=== PATIENT | female | born 1960 | race African-American/Black ===

== ENCOUNTER 2019-06-29 05:36 | Inpatient (IN) | payer MEDICARE, OTHER ==
[~2019-06-29] VITALS: Ht 160 cm; Wt 75.3 kg
[2019-06-29] VITALS (56 sets, daily range): BP systolic 67–199; BP diastolic 38–116
[2019-06-29] MEDS ORDERED: EPINEPHrine 1mg/1ml Amp ONE (05:39)
[2019-06-29] MEDS ORDERED: Solu-MEDROL 125mg Inj ONE (05:42)
[2019-06-29] MEDS ORDERED: DiphenhydrAMINE 50mg/ml Inj ONE (05:43)
[2019-06-29] MEDS ORDERED: DiphenhydrAMINE 50mg/ml Inj IVP ONE (05:45)
[2019-06-29] MEDS ORDERED: Racemic EPINEPHrine 2.25% 0.5ml HHN ONE (05:45)
[2019-06-29] MEDS ORDERED: Solu-MEDROL 125mg Inj IVP ONE (05:45)
[2019-06-29] MEDS ORDERED: EPINEPHrine 1mg/1ml Amp IM ONE (05:45)
--- NOTE | 2019-06-29 05:56 | Emergency Room Report ---
History of Present Illness General Chief Complaint: To Be Triaged Source: Patient Present Illness [facility] This is a 59-year-old female with a history of hypertension. She presents with chief complaint of severe allergic reaction. She woke up 2 hours prior to arrival with her tongue being swollen. Her neck was also swollen. She has a hard time breathing. This point to the area of pain. No fever chills. No nausea no vomiting. Couple shots of alcohol and took some Benadryl before going to sleep. She woke up with this condition. She is taking blood pressure medication but does not know the name. She did say she got it from [facility]. When I called there the only medication that she has was hydrochlorothiazide. Patient also said that she took Flexeril. No obvious BETTYE inhibitor. Allergies: Coded Allergies: No Known Allergies (Unverified , 06/29/19) Patient History Past Medical History: see triage record, old chart reviewed, HTN Past Surgical History: other Pertinent Family History: none Social History: Reports: alcohol use; Denies: smoking Now: No Immunizations: other Reviewed Nursing Documentation: PMH: Agreed; PSxH: Agreed Review of Systems Eye: Denies: eye pain, blurred vision ENT: Denies: ear pain, nose congestion, throat swelling Respiratory: Reports: shortness of breath; Denies: cough Cardiovascular: Denies: chest pain, palpitations Gastrointestinal: Denies: abdominal pain, diarrhea, nausea, vomiting Musculoskeletal: Denies: back pain, joint pain Skin: Denies: rash Neurological: Denies: headache, numbness Endocrine: Denies: increased thirst, increased urine Hematologic/Lymphatic: Denies: easy bruising All Other Systems: negative except mentioned in HPI Physical Exam Vitals with high blood pressure Sp02 EP Interpretation: reviewed, normal General Appearance: well appearing, alert, severe distress Head: normocephalic, atraumatic Eyes: bilateral eye PERRL, bilateral eye EOMI ENT: hearing grossly normal, other - Her tongue is very edematous. Can barely see the soft palate. Also tense soft tissue of the neck. Neck: full range of motion, supple, no meningismus Respiratory: chest non-tender, lungs clear, normal breath sounds Cardiovascular #1: regular rate, rhythm, no murmur Gastrointestinal: normal bowel sounds, non tender, no mass, no organomegaly, no bruit, non-distended Musculoskeletal: back normal, gait/station normal, normal range of motion Psychiatric: mood/affect normal Procedures Critical Care Time Critical Care Time Critical care is mandated in this patient who presented with severe angioedema. Patient require my urgent intervention to attenuate the risks of respiratory failure which may lead to cardiovascular collapse and . Critical care time is 35 minutes excluding any reportable procedure. Critical care time included evaluation, multiple reevaluation, looking at old charts, interpreting laboratory and diagnostic data, discussing case with patient and family and consultants, and charting. Medical Decision Making Diagnostic Impression: Primary Impression: Angioedema Qualified Codes: T78.3XXA - Angioneurotic edema, initial encounter Additional Impressions: Hypertension Qualified Codes: I10 - Essential (primary) hypertension Cocaine abuse ER Course Patient presents with severe angioedema. This does not appear to be from BETTYE inhibitor. Patient is on hydrochlorothiazide. She may be on another blood pressure medication. She said that she uses [facility]. When [facility] called [facility] only have [facility]ide on file. Patient was given epinephrine IM. She also received steroid, Pepcid, and Benadryl. I also gave her racemic epi. At this moment in time, she is protecting her airway. I called anesthesia on-call who will come in to intubate the patient in the OR. If unsuccessful, she will need a surgical airway. I discussed the case with Dr. Olivo, surgeon. He will also come in as back-up in the OR. Patient now admits to using cocaine last night. Will be admitted to ICU. Contacted Dr. Ray for admission. EKG Diagnostic Results Rate: tachycardiac Rhythm: NSR ST Segments: no acute changes Rhythm Strip Diag. Results EP Interpretation: yes Rate: 110 Rhythm: NSR, no PVC's, no ectopy Chest X-Ray Diagnostic Results Chest X-Ray Diagnostic Results : Chest X-Ray Ordered: Yes # of Views/Limited/Complete: 1 View Indication: Shortness of Breath EP Interpretation: Yes Interpretation: no consolidation, no effusion, no pneumothorax, no acute cardiopulmonary disease Impression: No acute disease Electronically Signed by: Lars Castaneda MD Status: improved Disposition: ADMITTED INPATIENT Condition: Critical Lars Castaneda MD Jun 29, 2019 05:56
[2019-06-29 06:21] LABS: ANION GAP 9 mmol/L (5-15); BLOOD UREA NITROGEN 19 mg/dL (7-18); CALCIUM 9.4 MG/DL (8.5-10.1); CARBON DIOXIDE 26 MMOL/L (21-32); CHLORIDE 106 MMOL/L (98-107); CREATININE 1.6 MG/DL (0.55-1.30); INR 0.9 (0.9-1.1); POTASSIUM 3.3 MMOL/L (3.5-5.1); SODIUM 141 MMOL/L (136-145)
[2019-06-29 06:23] LABS: BASOPHILS % (AUTO) 1.5 % (0.0-2.0); EOSINOPHILS % (AUTO) 2.4 % (0.0-3.0); HEMOGLOBIN 14.6 G/DL (12.0-16.0); LYMPHOCYTES % (AUTO) 30.2 % (20.0-45.0); MEAN CORPUSCULAR VOLUME 99 FL (80-99); MONOCYTES % (AUTO) 8.4 % (1.0-10.0); NEUTROPHILS % (AUTO) 57.5 % (45.0-75.0); PLATELET COUNT 258 K/UL (150-450); RED BLOOD COUNT 4.65 M/UL (4.20-5.40); RED CELL DISTRIBUTION WIDTH 14.9 % (11.6-14.8); WHITE BLOOD COUNT 12.6 K/UL (4.8-10.8)
[2019-06-29 07:17] LABS: APPEARANCE,URINE CLEAR; BILIRUBIN, URINE NEGATIVE (NEGATIVE); COLOR,URINE PALE YELLOW; GLUCOSE, URINE (UA) NEGATIVE (NEGATIVE); KETONES,URINE NEGATIVE (NEGATIVE); LEUKOCYTE ESTERASE ,URINE NEGATIVE (NEGATIVE); NITRITE,URINE NEGATIVE (NEGATIVE); PH,URINE 6.5 (4.5-8.0); PROTEIN,URINE 2+ (NEGATIVE); UROBILINOGEN,URINE NORMAL MG/DL (0.0-1.0)
[2019-06-29] MEDS ORDERED: Succinylcholine 20mg/ml 10ml vial ONE (07:21)
[2019-06-29] MEDS ORDERED: Lidocaine 1% 10mg/ml/Epi 0.005mg/ml 30ml vial INJ ONE (07:32)
[2019-06-29] MEDS ORDERED: Lidocaine 1% Plain 30 ml INJ ONE (07:32)
[2019-06-29] MEDS ORDERED: Ketamine 500mg Inj ONE (07:36)
[2019-06-29] MEDS ORDERED: Midazolam 2mg/2ml Inj ONE ×2 (07:56→09:01)
--- NOTE | 2019-06-29 08:00 | Pre-Procedure Note/Attestation ---
Pre-Procedure Note/Attestation Complete Prior to Procedure Planned Procedure: not applicable Procedure Narrative: tracheostomy Indications for Procedure Pre-Operative Diagnosis: angio-edema Attestation I attest that I discussed the nature of the procedure; its benefits; risks and complications; and alternatives (and the risks and benefits of such alternatives ), prior to the procedure, with the patient (or the patient's legal treasury representative). I attest that, if there was a reasonable possibility of needing a blood transfusion, the patient (or the patient's legal treasury representative) was given the [facility] standardized written summary, pursuant to the [place] Blood Safety Act ([place] Health and Safety Code # 1645, as amended). I attest that I re-evaluated the patient just prior to the surgery and that there has been no change in the patient's H&P, except as documented below: Luis Olivo MD Jun 29, 2019 08:00
[2019-06-29] MEDS ORDERED: Zemuron 50mg/5ml Inj IV ONE (09:00)
--- NOTE | 2019-06-29 09:09 | Emergency Room Report ---
History of Present Illness General Chief Complaint: Dyspnea/Respdistress Source: Patient Present Illness Allergies: Coded Allergies: No Known Allergies (Unverified , 06/29/19) Patient History Last Menstrual Period: NA Now: No Nursing Documentation-[facility] Hx Hypertension: Yes Physical Exam Vital Signs Date Time Temp Pulse Resp B/P (MAP) Pulse Ox O2 Delivery O2 Flow Rate FiO2 06/29/19 05:57 101 17 100 Simple Mask 6.0 40 06/29/19 06:02 199/116 (143) 06/29/19 07:20 98.7 Procedures Additional Procedure Procedure Narrative Please note that I was called to the OR for possible assistance Upon arriving to the OR patient has LMA airway in place anesthesia is at Bedside along with surgery data entry assistant reports that there was some difficulty with bleeding at the anterior surgical site I did assist with applying pressure with improved control Tracheal rings were visible at this time And Dr. barajas proceeded with the procedure After the tracheostomy was placed and sutures were being placed I did leave the OR to return to the emergency room Patient's saturation had improved to 95% And upon leaving the OR Dr. Kirkland from ENT was also presenting to the room. Medical Decision Making Diagnostic Impression: Primary Impression: Angioedema Additional Impressions: Cocaine abuse Hypertension Last Vital Signs Date Time Temp Pulse Resp B/P (MAP) Pulse Ox O2 Delivery O2 Flow Rate FiO2 06/29/19 07:58 98.7 122 26 149/107 100 Simple Mask 6.0 40 Disposition: ADMITTED INPATIENT Condition: Critical Referrals: NOT CHOSEN IPA/,REFERRING (PCP) Lou Hameed DO Jun 29, 2019 09:09
--- NOTE | 2019-06-29 09:16 | Brief Operative Note ---
Immediate Post Operative Note Operative Note Pre-op Diagnosis: angio-edema Procedure: emergemcy tracheostomy Post-op Diagnosis: same as pre-op Surgeon: Klaus Outsewer: Dr. Baez Anesthesiologist: Ashley Doty CRNA Anesthesia: general Specimen: none Complications: yes Condition: stable Fluids: Per anesthesia Estimated Blood Loss: volume - 2000 ml Drains: other - trach Implant(s) used?: No Luis Olivo MD Jun 29, 2019 09:16
[2019-06-29] MEDS ORDERED: ceFAZolin 2gm/50ml Premix 50 ML IVPB ONE (09:45)
[2019-06-29] MEDS ORDERED: Surgicel 4in x 8in TOPIC ONE (09:50)
[2019-06-29 10:25] LABS: HEMATOCRIT 29.5 % (37.0-47.0); HEMOGLOBIN 9.5 G/DL (12.0-16.0); MEAN CORPUSCULAR VOLUME 99 FL (80-99); PLATELET COUNT 197 K/UL (150-450); RED BLOOD COUNT 2.98 M/UL (4.20-5.40); RED CELL DISTRIBUTION WIDTH 15.1 % (11.6-14.8); WHITE BLOOD COUNT 16.5 K/UL (4.8-10.8)
[2019-06-29] MEDS ORDERED: D5NS 1,000 ML IV SCH (10:45)
[2019-06-29 10:52] LABS: ANION GAP 13 mmol/L (5-15); BLOOD UREA NITROGEN 24 mg/dL (7-18); CALCIUM 7.5 MG/DL (8.5-10.1); CARBON DIOXIDE 18 MMOL/L (21-32); CHLORIDE 112 MMOL/L (98-107); CREATININE 1.8 MG/DL (0.55-1.30); POTASSIUM 3.7 MMOL/L (3.5-5.1); SODIUM 143 MMOL/L (136-145)
--- NOTE | 2019-06-29 10:55 | Anethesia Preoperative Eval ---
Anesthesia Pre-op PMH/ROS General Date of Evaluation: Jun 29, 2019 Time of Evaluation: 07:45 Anesthesiologist: wong ASA Score: ASA 3 Mallampati Score Class I : Soft palate, uvula, fauces, pillars visible Class II: Soft palate, uvula, fauces visible Class III: Soft palate, base of uvula visible Class IV: Only hard plate visible Mallampati Classification: Class IV Surgeon: Pallavi Diagnosis: angio edema Surgical Procedure: tracheostomy Anesthesia History: none Family History: no anesthesia problems Allergies: Coded Allergies: No Known Allergies (Unverified , 06/29/19) Medications: see eMAR Patient NPO?: Yes NPO Date: Jun 29, 2019 NPO Time: 00:01 Past Medical History Cardiovascular: Reports: HTN Pulmonary: Denies: asthma, COPD, SHEREEN, other Gastrointestinal/Genitourinary: Denies: GERD, CRI, ESRD, other Neurologic/Psychiatric: Denies: dementia, CVA, depression/anxiety, TIA, other Endocrine: Denies: DM, hypothyroidism, steroids, other Other: other - substance abuse - cocaine use at 0200 PSxH Narrative: denies Anesthesia Pre-op Phys. Exam Physician Exam Last Vital Signs Date Time Temp Pulse Resp B/P (MAP) Pulse Ox O2 Delivery O2 Flow Rate FiO2 06/29/19 09:59 127 25 50 06/29/19 07:58 98.7 149/107 100 Simple Mask 6.0 Constitutional: NAD Neurologic: CN 2-12 intact, other - anxious Cardiovascular: other - ST 120s Respiratory: CTA Gastrointestinal: S/NT/ND Airway Exam Mallampati Classification 4 Mallampati Score: Class IV MO: limited Neck: thick and edematous Teeth: other - unable to assess Dentures: no upper, no lower Anesthesia Pre-op A/P Labs Hematology Test 06/29/19 05:40 06/29/19 10:20 White Blood Count 12.6 K/UL (4.8-10.8) H 16.5 K/UL (4.8-10.8) H Red Blood Count 4.65 M/UL (4.20-5.40) 2.98 M/UL (4.20-5.40) L Hemoglobin 14.6 G/DL (12.0-16.0) 9.5 G/DL (12.0-16.0) #L Hematocrit 46.0 % (37.0-47.0) 29.5 % (37.0-47.0) #L Mean Corpuscular Volume 99 FL (80-99) 99 FL (80-99) Mean Corpuscular Hemoglobin 31.4 PG (27.0-31.0) H 31.9 PG (27.0-31.0) H Mean Corpuscular Hemoglobin Concent 31.7 G/DL (32.0-36.0) L 32.2 G/DL (32.0-36.0) Red Cell Distribution Width 14.9 % (11.6-14.8) H 15.1 % (11.6-14.8) H Platelet Count 258 K/UL (150-450) 197 K/UL (150-450) Mean Platelet Volume 7.7 FL (6.5-10.1) 7.9 FL (6.5-10.1) Neutrophils (%) (Auto) 57.5 % (45.0-75.0) % (45.0-75.0) Lymphocytes (%) (Auto) 30.2 % (20.0-45.0) % (20.0-45.0) Monocytes (%) (Auto) 8.4 % (1.0-10.0) % (1.0-10.0) Eosinophils (%) (Auto) 2.4 % (0.0-3.0) % (0.0-3.0) Basophils (%) (Auto) 1.5 % (0.0-2.0) % (0.0-2.0) Neutrophils % (Manual) Pending Lymphocytes % (Manual) Pending Platelet Estimate Pending Platelet Morphology Pending Coagulation Test 06/29/19 05:40 Prothrombin Time 9.3 SEC (9.30-11.50) Prothromb Time International Ratio 0.9 (0.9-1.1) Activated Partial Thromboplast Time 26 SEC (23-33) Chemistry Test 06/29/19 05:40 06/29/19 10:20 Sodium Level 141 MMOL/L (136-145) Pending Potassium Level 3.3 MMOL/L (3.5-5.1) L Pending Chloride Level 106 MMOL/L (98-107) Pending Carbon Dioxide Level 26 MMOL/L (21-32) Pending Anion Gap 9 mmol/L (5-15) Blood Urea Nitrogen 19 mg/dL (7-18) H Pending Creatinine 1.6 MG/DL (0.55-1.30) H Pending Estimat Glomerular Filtration Rate 39.9 mL/min (>60) Pending Glucose Level 106 MG/DL (74-106) Pending Calcium Level 9.4 MG/DL (8.5-10.1) Pending Troponin I 0.010 ng/mL (0.000-0.056) Studies Pre-op Studies: EKG - st Risk Assessment & Plan Assessment: Spoke to Dr. Castaneda, an Emergency physician at 0600am. Dr. Castaneda explained to me that he had a difficult intubation with a pt who appears to have angioedema and requests anesthesia assistance in the ER. see ER notes for details. Per Dr Castaneda, pt is stable with 6 L of FM at this time after a couple doses of steriods.. Informed Dr. Castaneda that the case warrents a surgical airway and should be performed in the operating room with surgeon/ENT at bedside. He agreed and protocol activated. At 0650 - I visted the ER and explained to pt regarding the need for surgical airway in which patient acknowledged and consented. 0730 - I spoke with Dr. Ward, on the phone and in person, to full extent of the plan. The plan is 1. I will attempt to DL with glidescope x1 attempt since airway had been already compromised from ER intubation 2. Dr. Ward is to ID neck anatomy and prepped pt prior to DL 3. OR team is ready to assist Dr. Ward. Team Huddle was performed and acknowledged prior to induction. Dr. Rodriguez was also made aware of the situation and circumstances surrounding the case. at 0745, Received pt from the ER. Pt is spitting out blood and highly anxious at this point. However, VSS at this time. Please anesthesia note. Plan: Awake Trach vs Emergency intubation Pre-Antibiotics Drug: none Ashley Lam CRNA Jun 29, 2019 10:55
--- NOTE | 2019-06-29 10:56 | Immediate Post-Op Evaluation ---
Immediate Post-Op Evalulation Immediate Post-Op Evalulation Procedure: tracheostomy Date of Evaluation: Jun 29, 2019 Time of Evaluation: 09:35 IV Fluids: 1500 Blood Products: 0 Estimated Blood Loss: 2100 Urinary Output: 100 Blood Pressure Systolic: 80 Blood Pressure Diastolic: 50 Pulse Rate: 135 Respiratory Rate: 16 O2 Sat by Pulse Oximetry: 99 Temperature (Fahrenheit): 96.7 Nausea: No Vomiting: No Patient Status: patent, ventilated - See vent settings Hydration Status: other - ordered H&Hl 2 units of prbc; abg; and cxr Drug: none Ashley Lam CRNA Jun 29, 2019 10:56
[2019-06-29] MEDS ORDERED: Metoclopramide 10mg/2ml Inj IVP PRN (11:01)
[2019-06-29] MEDS ORDERED: Acetaminophen 650 MG SUPP RECTAL PRN (11:01)
[2019-06-29] MEDS ORDERED: HYDROmorphone 1mg/ml Carpuject IVP PRN (11:02)
[2019-06-29] MEDS ORDERED: Hydromorphone 0.5mg/0.5ml inj IVP PRN (11:02)
[2019-06-29] MEDS ORDERED: Pantoprazole Inj IVP SCH (12:00)
[2019-06-29] MEDS ORDERED: D5 1/2NS w/KCl 20mEq 1,000 ML IV SCH (12:30)
--- NOTE | 2019-06-29 13:02 | Emergency Room Report ---
History of Present Illness General Chief Complaint: Dyspnea/Respdistress Source: Patient Present Illness Allergies: Coded Allergies: No Known Allergies (Unverified , 06/29/19) Patient History Last Menstrual Period: NA Now: No Nursing Documentation-PM Hx Hypertension: Yes Physical Exam Vital Signs Date Time Temp Pulse Resp B/P (MAP) Pulse Ox O2 Delivery O2 Flow Rate FiO2 06/29/19 05:57 101 17 100 Simple Mask 6.0 40 06/29/19 06:02 199/116 (143) 06/29/19 07:20 98.7 Procedures Central Line Central Line : Consent: Emergent Central Line Lumen: triple Maximal Sterile Barrier Tech: yes cap, yes mask, yes sterile gown, yes sterile gloves, yes large sterile sheet, yes hand hygiene, yes chlorhexidine prep Central Line Postion: femoral (R) Complications: none Central Line Post Position: sutured Attempts: One Patient Tolerated: Well Complications: None Progress Please note I was called from the emergency room to place central line. Patient was noted to have lost blood during the procedure in the operating room. And the admitting physician requesting central line placement at this time Medical Decision Making Diagnostic Impression: Primary Impression: Angioedema Additional Impressions: Cocaine abuse Hypertension Last Vital Signs Date Time Temp Pulse Resp B/P (MAP) Pulse Ox O2 Delivery O2 Flow Rate FiO2 06/29/19 12:04 96.4 108 23 82/47 (59) 100 06/29/19 12:00 50 06/29/19 07:58 Simple Mask 6.0 Disposition: ADMITTED INPATIENT Condition: Critical Referrals: NOT CHOSEN IPA/,REFERRING (PCP) Lou Hameed DO Jun 29, 2019 13:02
[2019-06-29] MEDS: fentaNYL Citrate 2,500 MCG in NS 200 ML IV SCH (13:10)
--- NOTE | 2019-06-29 13:56 | History & Physical ---
History and Physical History & Physicial History and Physical Patient seen earlier on arrival from OR on ICU Patient is a 59-year-old female admitted with acute airway compromise complicating Angioedema, she has a history of hypertension. Presented with a severe allergic reaction. She woke up 2 hours prior to arrival with her tongue being swollen. Her neck was also swollen. She has a hard time breathing. Denied fever, chills. No nausea no vomiting. Per chart review she takes hydrochlorothiazide, Flexeril. Admits to using Alcohol and Cocaine per chart review. No BETTYE inhibitor use. Allergies: No Known Allergies Past Medical History: Hypertension All Other Systems: negative except mentioned in HPI Physical Exam Vital signs noted, on ACV via tracheostomy Sp02: reviewed, normal General Appearance: Sedated Head: normocephalic, atraumatic Eyes: bilateral eye PERRL, bilateral eye EOMI ENT: Her tongue is very edematous. tracheostomy site, no active bleeding Neck: swollen, no LN Respiratory: chest non-tender, lungs clear, normal breath sounds Cardiovascular: Normal HS1, HS2, regular rate, rhythm, no murmur Gastrointestinal: normal bowel sounds, non tender, no mass, no organomegaly, no bruit, non-distended Musculoskeletal: back normal, gait/station normal, normal range of motion Neurological: Sedated, no focal signs, moving all limbs, PERRL Impression: Angioedema Severe Hypotension associated with acute blood loss - EBL 2000ml Previous Hypertension Cocaine abuse Plan D/W ED Attending - for stat central line IVF - 2L NS over 4 hours Levophed PRN MAP >=65 D5NS maintenance Transfuse PRN Monitor labs SCD Wean FIO2 Solumedrol/Benadryl/Zantac PPX. EKG: tachycardiac: NSR, no acute ST changes Chest X-Ray: no consolidation, no effusion, no pneumothorax, no acute cardiopulmonary disease Deangelo John MD Jun 29, 2019 13:56
[2019-06-29] MEDS: Solu-MEDROL 125mg Inj IVP SCH ×2 (14:40→21:38)
[2019-06-29] MEDS: ceFAZolin sod 1 GM in D5W 55 ML IV SCH ×2 (14:42→20:09)
[2019-06-29] MEDS: D5 1/2NS w/KCl 20mEq 1,000 ML IV SCH ×2 (14:42→22:03)
[2019-06-29] MEDS: Vasopressin 100 UNITS in NS 95 ML IV SCH (14:54)
[2019-06-29] MEDS: LORazepam Inj 2mg/ml 1ml IV PRN (15:10)
[2019-06-29] MEDS: EPINEPHrine 1mg/1ml Amp 1 MG in D5W 249 ML IV SCH (16:00)
--- NOTE | 2019-06-29 17:00 | Operative Note - Dictated ---
DATE OF OPERATION: 06/29/2019 PREOPERATIVE DIAGNOSIS: Angioedema. POSTOPERATIVE DIAGNOSIS: Angioedema. OPERATION: Emergency tracheostomy. COMPLICATION: Bleeding, controlled. SURGEON: Luis Olivo M.D. DIRECTOR OF CREATIVE SERVICES: None. ANESTHESIA: General converted to LMA. NURSE SEWER CLEANER: Ashley Doty CRNA. INDICATION: This is a 59-year-old female, who presented with severe angioedema. The emergency room physician was unable to intubate, so the decision was made for the motor vehicle technician to try the intubation and if it was unsuccessful, for me to perform a tracheostomy. DESCRIPTION OF PROCEDURE: The patient was placed supine on the operating table and after IV sedation, The motor vehicle technician tried twice with glidoscope to intubate the patient but it was unsuccessful due to severe edema of tongue and pharyngs. as intubation was unsuccessful I was asked to perform surgical tracheostomy to maintain ventilation. The anesthesia was maintained with mask and the neck was prepped and draped. A transverse incision was given above the manubrium and was carried sharply through a large amount of subcutaneous tissue and edema. Finally very deep in the neck, we reached the trachea. While I was dissecting the trachea, the patient developed severe venous bleeding. This bleeding was controlled with #0 silk suture, but she started bleeding from another area. Basically, the patient was having severe venous bleeding for which we had to place the [id number] sutures blindly and finally with packing and sutures, the bleeding was controlled. At this time, I asked for help. The ER physician, Dr. Hameed, presented for holding the retractor and later after the case was done, Dr. Kirkland, the ENT specialist presented to the emergency room. Anyway, the bleeding was controlled after losing about 1-2 L of blood, but the trachea was exposed. A cross-like incision was made and then an 8 Shiley tracheostomy tube was placed. The incision was repaired with multiple interrupted mattress suture of #0 silk and tracheostomy tube was secured to the skin. The patient tolerated the procedure except that she had a short period of bradycardia, which was rapidly treated by the motor vehicle technician. The patient was transferred to the ICU in stable condition. The sponge and needle count correct. ESTIMATED BLOOD LOSS: 2 L. CONDITION: Condition of the patient at the end of the procedure was stable. Luis Olivo M.D. DR: Getachew JOB#: [id number] CC: HIRAM
[2019-06-29] MEDS ORDERED: Tubing IV Secondary IV ONE (17:16)
--- NOTE | 2019-06-29 17:30 | Consultation ---
DATE OF CONSULTATION: 06/29/2019 PREOPERATIVE CONSULTATION CONSULTING PHYSICIAN: Luis Olivo M.D. REQUESTING PHYSICIAN: Lars Castaneda M.D., in the emergency room. REASON FOR CONSULTATION: Difficulty breathing. HISTORY OF PRESENT ILLNESS: This is a 59-year-old female, who presented to emergency room for swelling of the face and tongue, and difficulty breathing. Apparently, she has used some cocaine last night and woke up in the morning with severe swelling of the head, tongue, and throat. In the emergency room, they were unable to intubate the patient. They were unable to establish airway, so the anesthesiologist was called for intubation and had requested my service to be standby if the intubation was ineffective to perform a tracheostomy. The patient is unable to talk and history was obtained from the chart and the physician. PAST MEDICAL HISTORY: Apparently, there is no allergy and she has history of hypertension, but she is 59 years old and she is on Medicare. Obviously, she had some problem to be on Medicare and there is no scar on the body, so she did not have any surgery. MEDICATIONS: Apparently, she is only on hydrochlorothiazide. SOCIAL HISTORY: Unobtainable except that she is female, 59 years old. REVIEW OF SYSTEMS: Unobtainable. PHYSICAL EXAMINATION: GENERAL: The patient appeared to be well-developed, well-nourished, obese 59-year-old female, sitting on the gurney with severe swelling of the tongue. HEENT: Head is normal. Eyes, pupils are equal, round, and reactive to light. Mouth, she has severe swelling of the tongue. She has edema of the neck and the face. CHEST: Basically clear, but she has upper respiratory rales. HEART: Tachycardic. ABDOMEN: Obese, but soft. EXTREMITIES: Within normal limits. ASSESSMENT: Angioedema. PLAN: We did discussion with ER physician, Dr. Castaneda. I would be on standby and if the intubation by the anesthesiologist was unsuccessful, to perform a tracheostomy. This had been explained to the patient. She understood and agreed. Luis Olivo M.D. DR: ABDELRAHMAN JOB#: [id number] CC: HIRAM
[2019-06-29 18:04] LABS: HEMATOCRIT 20.1 % (37.0-47.0); MEAN CORPUSCULAR VOLUME 96 FL (80-99); PLATELET COUNT 87 K/UL (150-450); RED BLOOD COUNT 2.09 M/UL (4.20-5.40); RED CELL DISTRIBUTION WIDTH 14.4 % (11.6-14.8)
[2019-06-29 18:06] LABS: HEMOGLOBIN 6.6 G/DL (12.0-16.0)
[2019-06-29] MEDS: Dyna-Hex 2% Top Sol 2oz TOPIC SCH (20:08)
[2019-06-30] VITALS (58 sets, daily range): BP systolic 93–138; BP diastolic 63–97
[2019-06-30 01:43] LABS: HEMATOCRIT 26.3 % (37.0-47.0); HEMOGLOBIN 8.8 G/DL (12.0-16.0); MEAN CORPUSCULAR VOLUME 93 FL (80-99); PLATELET COUNT 61 K/UL (150-450); RED BLOOD COUNT 2.84 M/UL (4.20-5.40); RED CELL DISTRIBUTION WIDTH 14.6 % (11.6-14.8); WHITE BLOOD COUNT 15.5 K/UL (4.8-10.8)
[2019-06-30] MEDS: fentaNYL Citrate 2,500 MCG in NS 200 ML IV SCH ×2 (05:19→15:51)
[2019-06-30 05:53] LABS: HEMATOCRIT 26.3 % (37.0-47.0); HEMOGLOBIN 8.7 G/DL (12.0-16.0); MEAN CORPUSCULAR VOLUME 93 FL (80-99); PLATELET COUNT 60 K/UL (150-450); RED BLOOD COUNT 2.84 M/UL (4.20-5.40); RED CELL DISTRIBUTION WIDTH 14.1 % (11.6-14.8); WHITE BLOOD COUNT 15.1 K/UL (4.8-10.8)
[2019-06-30] MEDS: Solu-MEDROL 125mg Inj IVP SCH ×2 (06:00→17:51)
[2019-06-30] MEDS: D5 1/2NS w/KCl 20mEq 1,000 ML IV SCH (06:01)
[2019-06-30 06:06] LABS: ANION GAP 11 mmol/L (5-15); BLOOD UREA NITROGEN 37 mg/dL (7-18); CALCIUM 6.1 MG/DL (8.5-10.1); CARBON DIOXIDE 18 MMOL/L (21-32); CHLORIDE 110 MMOL/L (98-107); CREATININE 3.4 MG/DL (0.55-1.30); POTASSIUM 5.5 MMOL/L (3.5-5.1); SODIUM 139 MMOL/L (136-145)
[2019-06-30] MEDS ORDERED: Pantoprazole Inj IVP SCH (09:00)
[2019-06-30] MEDS ORDERED: Sodium Chloride 550 ML IV ONE (09:00)
[2019-06-30] MEDS: D5 1/2NS 1,000 ML IV SCH ×2 (09:30→18:12)
--- NOTE | 2019-06-30 09:40 | Consultation ---
History of Present Illness General Date patient seen: Jun 30, 2019 Time patient seen: 09:35 Chief Complaint: Dyspnea/Respdistress Present Illness HPI [employer] Pt rushed to ED from home presenting with swelling in the mouth/throat and tongue. Pt unable to speak and having difficulty breathing, spitting up blood and saliva. Patient positive for cocaine. Emergent trach for tongue swelling. On 2 pressors for hypotension, Echo with normal LV function. Hemoglobin 12->6, s/p 3 units of blood and 2 unit of FFP. Allergies: Coded Allergies: No Known Allergies (Unverified , 06/29/19) Patient History Healthcare decision maker Resuscitation status Full Code Advanced Directive on File Review of Systems Constitutional: Reports: weakness Eye: Reports: no symptoms ENT: Reports: throat pain, throat swelling Respiratory: Reports: no symptoms Cardiovascular: Reports: no symptoms Gastrointestinal: Reports: no symptoms Genitourinary: Reports: no symptoms Musculoskeletal: Reports: no symptoms Skin: Reports: no symptoms Psychiatric: Reports: no symptoms Neurological: Reports: no symptoms Endocrine: Reports: no symptoms Hematologic/Lymphatic: Reports: no symptoms Physical Exam General Appearance: severe distress, obese Lines, tubes and drains: peripheral, central line HEENT: normocephalic, atraumatic, tonsils swollen Neck: non-tender, normal alignment, limited range of motion, tenderness Respiratory/Chest: chest wall non-tender, lungs clear, normal breath sounds Cardiovascular/Chest: normal peripheral pulses, normal rate, regular rhythm Abdomen: normal bowel sounds, non tender, soft, no organomegaly Extremities: normal range of motion Skin Exam: normal pigmentation, warm/dry, cyanotic 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, no motor/sensory deficits Last 24 Hour Vital Signs Date Time Temp Pulse Resp B/P (MAP) Pulse Ox O2 Delivery O2 Flow Rate FiO2 06/30/19 08:30 64 20 123/85 (98) 100 06/30/19 08:00 45 06/30/19 08:00 98.3 64 17 107/76 (86) 100 06/30/19 08:00 62 06/30/19 07:30 63 18 113/77 (89) 100 06/30/19 07:02 65 18 45 06/30/19 07:00 20 Mechanical Ventilator 45 06/30/19 07:00 118/83 06/30/19 07:00 66 18 118/83 (95) 100 06/30/19 06:30 65 20 104/87 (93) 100 06/30/19 06:00 65 20 113/76 (88) 100 06/30/19 06:00 20 Mechanical Ventilator 45 06/30/19 06:00 113/78 06/30/19 05:30 69 22 119/75 (90) 100 06/30/19 05:19 20 Mechanical Ventilator 45 06/30/19 05:10 64 17 45 06/30/19 05:00 67 18 121/71 (88) 100 06/30/19 05:00 18 Mechanical Ventilator 45 06/30/19 05:00 121/71 06/30/19 04:45 68 18 107/75 (86) 100 06/30/19 04:30 113/74 06/30/19 04:30 68 18 113/74 (87) 100 06/30/19 04:15 68 19 121/74 (90) 100 06/30/19 04:15 121/74 06/30/19 04:10 93/65 06/30/19 04:00 Mechanical Ventilator 06/30/19 04:00 98.8 70 18 93/63 (73) 100 06/30/19 04:00 18 Mechanical Ventilator 45 06/30/19 04:00 93/63 06/30/19 04:00 45 06/30/19 03:45 66 17 120/79 (93) 100 06/30/19 03:30 67 18 122/79 (93) 100 06/30/19 03:15 69 17 119/73 (88) 100 06/30/19 03:07 67 06/30/19 03:04 67 21 45 06/30/19 03:00 22 Mechanical Ventilator 45 06/30/19 03:00 134/82 06/30/19 03:00 67 22 134/82 (99) 100 06/30/19 02:45 68 18 122/73 (89) 100 06/30/19 02:30 68 18 123/77 (92) 100 19 02:15 69 18 121/77 (92) 100 06/30/19 02:00 68 18 123/77 (92) 100 06/30/19 02:00 18 Mechanical Ventilator 45 06/30/19 02:00 123/77 06/30/19 01:45 69 17 132/82 (99) 100 06/30/19 01:30 70 21 129/97 (108) 100 06/30/19 01:20 70 20 45 06/30/19 01:15 75 20 138/81 (100) 100 06/30/19 01:00 67 16 121/75 (90) 100 06/30/19 01:00 16 Mechanical Ventilator 45 06/30/19 01:00 121/75 06/30/19 00:55 19 Mechanical Ventilator 45 06/30/19 00:50 18 Mechanical Ventilator 45 06/30/19 00:45 67 18 126/77 (93) 100 06/30/19 00:45 18 Mechanical Ventilator 45 06/30/19 00:45 126/77 06/30/19 00:30 17 Mechanical Ventilator 45 06/30/19 00:30 128/74 06/30/19 00:30 68 17 128/74 (92) 100 06/30/19 00:15 69 17 121/81 (94) 100 06/30/19 00:00 Mechanical Ventilator 06/30/19 00:00 98.5 68 20 120/75 (90) 100 06/30/19 00:00 20 Mechanical Ventilator 45 06/30/19 00:00 120/75 06/30/19 00:00 45 06/29/19 23:48 75 06/29/19 23:30 71 19 116/85 (95) 100 06/29/19 23:15 68 18 123/79 (94) 100 06/29/19 23:15 19 Mechanical Ventilator 45 06/29/19 23:15 121/81 06/29/19 23:10 19 Mechanical Ventilator 45 06/29/19 23:07 68 18 45 06/29/19 23:00 71 18 121/81 (94) 100 06/29/19 23:00 18 Mechanical Ventilator 45 06/29/19 23:00 123/79 06/29/19 22:45 73 17 125/85 (98) 100 06/29/19 22:30 74 17 119/81 (94) 100 06/29/19 22:30 119/81 06/29/19 22:15 72 17 121/79 (93) 100 06/29/19 22:03 134/82 06/29/19 22:00 20 Mechanical Ventilator 45 06/29/19 22:00 103/77 06/29/19 22:00 72 20 103/77 (86) 100 06/29/19 21:45 72 19 134/82 (99) 100 06/29/19 21:30 72 16 112/74 (87) 100 06/29/19 21:15 72 16 106/69 (81) 100 06/29/19 21:00 72 17 104/73 (83) 100 06/29/19 21:00 17 Mechanical Ventilator 45 06/29/19 21:00 104/73 06/29/19 21:00 72 20 45 06/29/19 20:45 77 17 111/74 (86) 100 06/29/19 20:30 79 16 103/71 (82) 100 06/29/19 20:15 80 17 104/65 (78) 100 06/29/19 20:00 Mechanical Ventilator 06/29/19 20:00 98.3 84 18 106/64 (78) 100 06/29/19 20:00 45 06/29/19 20:00 18 Mechanical Ventilator 45 06/29/19 20:00 106/64 06/29/19 19:48 85 19 45 06/29/19 19:45 84 18 130/68 (88) 100 06/29/19 19:30 86 19 129/61 (83) 100 06/29/19 19:28 86 06/29/19 19:15 88 18 112/59 (76) 100 06/29/19 19:00 19 Mechanical Ventilator 45 06/29/19 19:00 121/53 06/29/19 19:00 92 21 112/56 (74) 100 06/29/19 18:45 95 20 113/52 (72) 100 06/29/19 18:30 97 20 110/59 (76) 100 06/29/19 18:15 100 21 107/52 (70) 100 06/29/19 18:00 104 22 112/52 (72) 100 06/29/19 18:00 22 Mechanical Ventilator 45 06/29/19 18:00 112/52 06/29/19 17:55 22 Mechanical Ventilator 45 06/29/19 17:50 24 Mechanical Ventilator 45 06/29/19 17:45 26 Mechanical Ventilator 45 06/29/19 17:45 110 24 102/58 (73) 100 06/29/19 17:40 28 Mechanical Ventilator 45 06/29/19 17:35 29 Mechanical Ventilator 45 06/29/19 17:30 120 28 127/64 (85) 100 06/29/19 17:30 30 Mechanical Ventilator 45 06/29/19 17:25 31 Mechanical Ventilator 45 06/29/19 17:20 30 Mechanical Ventilator 45 06/29/19 17:17 99/38 06/29/19 17:15 134 30 110/93 (99) 100 06/29/19 17:15 31 Mechanical Ventilator 45 06/29/19 17:10 30 Mechanical Ventilator 45 06/29/19 17:05 29 Mechanical Ventilator 45 06/29/19 17:00 133 30 99/38 (58) 100 06/29/19 17:00 31 Mechanical Ventilator 45 06/29/19 17:00 99/38 06/29/19 16:35 96 23 45 06/29/19 16:30 94 24 143/61 (88) 100 06/29/19 16:00 Mechanical Ventilator 06/29/19 16:00 97.3 103 25 113/57 (75) 100 06/29/19 16:00 117 06/29/19 16:00 26 Mechanical Ventilator 45 06/29/19 16:00 113/57 06/29/19 16:00 45 06/29/19 15:45 107 26 105/50 (68) 100 06/29/19 15:30 109 27 105/57 (73) 100 06/29/19 15:15 115 29 91/55 (67) 100 06/29/19 15:00 29 Mechanical Ventilator 45 06/29/19 15:00 76/52 06/29/19 15:00 121 30 73/54 (60) 100 06/29/19 14:52 135 33 45 06/29/19 14:45 125 30 76/52 (60) 100 06/29/19 14:30 120 31 85/66 (72) 100 06/29/19 14:15 123 29 79/52 (61) 100 06/29/19 14:00 130 30 106/57 (73) 100 06/29/19 14:00 29 Mechanical Ventilator 45 06/29/19 14:00 106/57 06/29/19 13:45 129 29 80/51 (61) 100 06/29/19 13:30 133 25 86/59 (68) 100 06/29/19 13:15 143 24 92/64 (73) 100 06/29/19 13:10 24 Mechanical Ventilator 100 06/29/19 13:00 127 15 92/46 (61) 100 06/29/19 13:00 100/57 06/29/19 12:54 109 28 45 06/29/19 12:45 108 22 100/57 (71) 100 06/29/19 12:30 92/59 06/29/19 12:30 107 23 95/64 (74) 100 06/29/19 12:15 108 23 90/57 (68) 100 06/29/19 12:04 96.4 108 23 82/47 (59) 100 06/29/19 12:00 114 06/29/19 12:00 50 06/29/19 12:00 82/47 06/29/19 12:00 Mechanical Ventilator 06/29/19 11:56 79/50 06/29/19 11:45 108 22 81/54 (63) 100 06/29/19 11:30 113 24 74/49 (57) 100 06/29/19 11:15 115 24 81/57 (65) 100 06/29/19 11:00 113 23 80/47 (58) 100 06/29/19 10:59 115 29 50 06/29/19 10:56 135 16 99 06/29/19 10:45 114 24 67/54 (58) 100 06/29/19 10:30 116 25 78/39 (52) 100 06/29/19 10:15 122 26 87/55 (66) 100 06/29/19 10:00 131 27 115/61 (79) 98 06/29/19 09:59 127 25 50 Intake and Output 06/29/19 06/30/19 19:00 07:00 Intake Total 3910.35794 ml 3475.3 ml Output Total 120 ml 80 ml Balance 3790.64639 ml 3395.3 ml Intake IV Total 3310.59618 ml 2625.3 ml Blood Product 500 ml 850 ml Other 100 ml Output Urine Total 120 ml 80 ml Laboratory Tests Test 06/29/19 10:20 06/29/19 10:40 06/29/19 17:55 06/30/19 01:38 White Blood Count 16.5 K/UL (4.8-10.8) H 19.0 K/UL (4.8-10.8) H 15.5 K/UL (4.8-10.8) H Red Blood Count 2.98 M/UL (4.20-5.40) L 2.09 M/UL (4.20-5.40) L 2.84 M/UL (4.20-5.40) L Hemoglobin 9.5 G/DL (12.0-16.0) #L 6.6 G/DL (12.0-16.0) 8.8 G/DL (12.0-16.0) #L Hematocrit 29.5 % (37.0-47.0) #L 20.1 % (37.0-47.0) #L 26.3 % (37.0-47.0) #L Mean Corpuscular Volume 99 FL (80-99) 96 FL (80-99) 93 FL (80-99) Mean Corpuscular Hemoglobin 31.9 PG (27.0-31.0) H 31.8 PG (27.0-31.0) H 30.9 PG (27.0-31.0) Mean Corpuscular Hemoglobin Concent 32.2 G/DL (32.0-36.0) 32.9 G/DL (32.0-36.0) 33.4 G/DL (32.0-36.0) Red Cell Distribution Width 15.1 % (11.6-14.8) H 14.4 % (11.6-14.8) 14.6 % (11.6-14.8) Platelet Count 197 K/UL (150-450) 87 K/UL (150-450) #L 61 K/UL (150-450) L Mean Platelet Volume 7.9 FL (6.5-10.1) 7.2 FL (6.5-10.1) 10.6 FL (6.5-10.1) H Neutrophils (%) (Auto) % (45.0-75.0) % (45.0-75.0) % (45.0-75.0) Lymphocytes (%) (Auto) % (20.0-45.0) % (20.0-45.0) % (20.0-45.0) Monocytes (%) (Auto) % (1.0-10.0) % (1.0-10.0) % (1.0-10.0) Eosinophils (%) (Auto) % (0.0-3.0) % (0.0-3.0) % (0.0-3.0) Basophils (%) (Auto) % (0.0-2.0) % (0.0-2.0) % (0.0-2.0) Differential Total Cells Counted 100 100 100 Neutrophils % (Manual) 83 % (45-75) H 71 % (45-75) 89 % (45-75) H Lymphocytes % (Manual) 6 % (20-45) L 8 % (20-45) L 7 % (20-45) L Monocytes % (Manual) 7 % (1-10) 1 % (1-10) 4 % (1-10) Eosinophils % (Manual) 1 % (0-3) 0 % (0-3) 0 % (0-3) Basophils % (Manual) 0 % (0-2) 0 % (0-2) 0 % (0-2) Band Neutrophils 3 % (0-8) 20 % (0-8) H 0 % (0-8) Platelet Estimate Adequate Decreased L Decreased L Platelet Morphology Normal Normal Normal Hypochromasia 1+ 2+ Anisocytosis 1+ 1+ Prothrombin Time 10.7 SEC (9.30-11.50) Prothromb Time International Ratio 1.0 (0.9-1.1) Activated Partial Thromboplast Time 25 SEC (23-33) Sodium Level 143 MMOL/L (136-145) Potassium Level 3.7 MMOL/L (3.5-5.1) Chloride Level 112 MMOL/L (98-107) H Carbon Dioxide Level 18 MMOL/L (21-32) L Anion Gap 13 mmol/L (5-15) Blood Urea Nitrogen 24 mg/dL (7-18) H Creatinine 1.8 MG/DL (0.55-1.30) H Estimat Glomerular Filtration Rate 34.8 mL/min (>60) Glucose Level 203 MG/DL (74-106) H Calcium Level 7.5 MG/DL (8.5-10.1) #L Arterial Blood pH 7.300 (7.350-7.450) Arterial Blood Partial Pressure CO2 34.7 mmHg (35.0-45.0) L Arterial Blood Partial Pressure O2 137.3 mmHg (75.0-100.0) H Arterial Blood HCO3 16.7 mmol/L (22.0-26.0) *L Arterial Blood Oxygen Saturation 97.9 % (95-100) Arterial Blood Base Excess -8.9 (-2-2) L Maxim Test Positive Nucleated Red Blood Cells 1 /100 WBC Red Blood Cell Morphology Normal Test 06/30/19 05:45 White Blood Count 15.1 K/UL (4.8-10.8) H Red Blood Count 2.84 M/UL (4.20-5.40) L Hemoglobin 8.7 G/DL (12.0-16.0) L Hematocrit 26.3 % (37.0-47.0) L Mean Corpuscular Volume 93 FL (80-99) Mean Corpuscular Hemoglobin 30.7 PG (27.0-31.0) Mean Corpuscular Hemoglobin Concent 33.1 G/DL (32.0-36.0) Red Cell Distribution Width 14.1 % (11.6-14.8) Platelet Count 60 K/UL (150-450) L Mean Platelet Volume 10.8 FL (6.5-10.1) H Neutrophils (%) (Auto) % (45.0-75.0) Lymphocytes (%) (Auto) % (20.0-45.0) Monocytes (%) (Auto) % (1.0-10.0) Eosinophils (%) (Auto) % (0.0-3.0) Basophils (%) (Auto) % (0.0-2.0) Differential Total Cells Counted 100 Neutrophils % (Manual) 92 % (45-75) H Lymphocytes % (Manual) 5 % (20-45) L Monocytes % (Manual) 3 % (1-10) Eosinophils % (Manual) 0 % (0-3) Basophils % (Manual) 0 % (0-2) Band Neutrophils 0 % (0-8) Platelet Estimate Decreased L Platelet Morphology Normal Hypochromasia 1+ Sodium Level 139 MMOL/L (136-145) Potassium Level 5.5 MMOL/L (3.5-5.1) H Chloride Level 110 MMOL/L (98-107) H Carbon Dioxide Level 18 MMOL/L (21-32) L Anion Gap 11 mmol/L (5-15) Blood Urea Nitrogen 37 mg/dL (7-18) H Creatinine 3.4 MG/DL (0.55-1.30) #H Estimat Glomerular Filtration Rate 16.7 mL/min (>60) Glucose Level 217 MG/DL (74-106) H Calcium Level 6.1 MG/DL (8.5-10.1) L Height (Feet): 5 Height (Inches): 4.00 Weight (Pounds): 189 Medications Current Medications Medications (Trade) Dose Ordered Sig/Dmitri Route PRN Reason Start Time Stop Time Status Last Admin Dose Admin Acetaminophen (Tylenol) 650 mg Q4H PRN RECTAL FEVER 06/29/19 11:01 07/29/19 11:00 Calcium Gluconate 1 gm/Sodium Chloride 120 ml @ 240 mls/hr ONCE IVPB 06/30/19 10:00 06/30/19 12:00 Chlorhexidine Gluconate (Lynn-Hex 2%) 1 applic DAILY@2000 TOPIC 06/29/19 20:00 07/29/19 19:59 06/29/19 20:08 Dextrose/ Electrolytes 1,000 ml @ 125 mls/hr Q8H IV 06/29/19 14:30 07/29/19 14:29 06/30/19 06:01 Dextrose/Sodium Chloride 1,000 ml @ 125 mls/hr Q8H IV 06/30/19 09:00 07/30/19 08:59 06/30/19 09:30 Diphenhydramine HCl (Benadryl) 25 mg Q6H PRN IVP Muscle Spasm 06/29/19 11:01 07/29/19 11:00 Epinephrine 1 mg/ Dextrose 250 ml @ 0 mls/hr Q24H IV 06/29/19 16:00 07/29/19 15:59 Fentanyl Citrate 2500 mcg/Sodium Chloride 250 ml @ 0 mls/hr Q24H IV 06/29/19 12:30 07/06/19 12:29 06/30/19 05:19 Hydromorphone HCl (Dilaudid) 0.5 mg Q3H PRN IVP Pain Score 1-3 06/29/19 11:02 07/06/19 11:01 Hydromorphone HCl (Dilaudid) 1 mg Q3H PRN IVP pain score 4-6 06/29/19 11:02 07/06/19 11:01 Hydromorphone HCl (Dilaudid) 2 mg Q3H PRN IVP pain score 7-10 06/29/19 11:02 07/06/19 11:01 Lorazepam (Ativan 2mg/ml 1ml) 0.5 mg Q24HRS PRN IV Agitation 06/29/19 11:36 07/06/19 11:35 06/29/19 15:10 Methylprednisolone Sodium Succinate (Solu-MEDROL) 60 mg EVERY 8 HOURS IVP 06/29/19 14:00 07/29/19 13:59 06/30/19 06:00 Metoclopramide HCl (Reglan) 10 mg Q6H PRN IVP Nausea & Vomiting 06/29/19 11:01 07/29/19 11:00 Norepinephrine Bitartrate 8 mg/ Dextrose 508 ml @ 0 mls/hr Q24H IV 06/29/19 12:30 07/29/19 12:29 06/30/19 04:10 Ondansetron HCl (Zofran) 4 mg Q6H PRN IVP Nausea & Vomiting 06/29/19 11:01 07/29/19 11:00 Pantoprazole (Protonix) 40 mg DAILY IVP 06/30/19 09:00 07/30/19 08:59 06/30/19 09:29 Sodium Chloride 550 ml @ 250 mls/hr Q2H12M ONCE IV 06/30/19 09:00 06/30/19 11:11 06/30/19 09:30 Vasopressin 100 units/Sodium Chloride 100 ml @ 2.4 mls/hr Q24H IV 06/29/19 14:15 07/29/19 14:14 06/29/19 14:54 Assessment/Plan Status: stable Assessment/Plan: Assessment: Angioedema Severe Hypotension Previous Hypertension Cocaine abuse s/p emergent trach Anemia secondary to blood loss Plan: Echocardiogram with normal LV function Wean pressors Midodrine Trach care Steroids Transfuse PRBC Dr. Rodarte to resume care in [place]o Lacy MD Jun 30, 2019 09:40
[2019-06-30] MEDS ORDERED: Calcium Gluconate 10% 1 GM in NS 110 ML IVPB SCH (10:00)
--- NOTE | 2019-06-30 10:03 | Diagnostic Imaging Report ---
EXAM: XR Chest, 1 View CLINICAL HISTORY: TUBE PLCMT TECHNIQUE: Frontal view of the chest. COMPARISON: No relevant prior studies available. FINDINGS: Lungs: Unremarkable. The lungs appear clear. No focal consolidation. Pleural space: Unremarkable. The costophrenic angles are sharp. No visible pneumothorax. Heart: Cardiac silhouette is magnified by portable exam technique. Mediastinum: Unremarkable. Bones/joints: Unremarkable. Tubes, lines and devices: Interval placement of a tracheostomy tube, with expected positioning. Telemetry leads overlie the thorax. IMPRESSION: Interval placement of a tracheostomy tube, with expected radiographic positioning.
--- NOTE | 2019-06-30 11:41 | General Surgery Progress Note ---
General Surgery-Progress Note Subjective Procedure Performed emergemcy tracheostomy Symptoms: improved Objective Last 24 Hour Vital Signs Date Time Temp Pulse Resp B/P (MAP) Pulse Ox O2 Delivery O2 Flow Rate FiO2 06/30/19 11:30 58 17 123/76 (92) 100 06/30/19 11:00 59 18 122/74 (90) 100 06/30/19 10:41 53 19 45 06/30/19 10:30 57 18 128/73 (91) 100 06/30/19 10:00 62 19 123/80 (94) 100 06/30/19 09:30 66 19 114/77 (89) 100 06/30/19 09:25 59 20 45 06/30/19 09:00 63 18 126/85 (99) 100 06/30/19 08:30 64 20 123/85 (98) 100 06/30/19 08:00 45 06/30/19 08:00 98.3 64 17 107/76 (86) 100 06/30/19 08:00 62 06/30/19 08:00 Mechanical Ventilator 06/30/19 07:30 63 18 113/77 (89) 100 06/30/19 07:02 65 18 45 06/30/19 07:00 20 Mechanical Ventilator 45 06/30/19 07:00 118/83 06/30/19 07:00 66 18 118/83 (95) 100 06/30/19 06:30 65 20 104/87 (93) 100 06/30/19 06:00 65 20 113/76 (88) 100 06/30/19 06:00 20 Mechanical Ventilator 45 06/30/19 06:00 113/78 06/30/19 05:30 69 22 119/75 (90) 100 06/30/19 05:19 20 Mechanical Ventilator 45 06/30/19 05:10 64 17 45 06/30/19 05:00 67 18 121/71 (88) 100 06/30/19 05:00 18 Mechanical Ventilator 45 06/30/19 05:00 121/71 06/30/19 04:45 68 18 107/75 (86) 100 06/30/19 04:30 113/74 06/30/19 04:30 68 18 113/74 (87) 100 06/30/19 04:15 68 19 121/74 (90) 100 06/30/19 04:15 121/74 8/18/19 04:10 93/65 06/30/19 04:00 Mechanical Ventilator 06/30/19 04:00 98.8 70 18 93/63 (73) 100 06/30/19 04:00 18 Mechanical Ventilator 45 06/30/19 04:00 93/63 06/30/19 04:00 45 06/30/19 03:45 66 17 120/79 (93) 100 06/30/19 03:30 67 18 122/79 (93) 100 06/30/19 03:15 69 17 119/73 (88) 100 06/30/19 03:07 67 06/30/19 03:04 67 21 45 06/30/19 03:00 22 Mechanical Ventilator 45 06/30/19 03:00 134/82 06/30/19 03:00 67 22 134/82 (99) 100 06/30/19 02:45 68 18 122/73 (89) 100 06/30/19 02:30 68 18 123/77 (92) 100 06/30/19 02:15 69 18 121/77 (92) 100 06/30/19 02:00 68 18 123/77 (92) 100 06/30/19 02:00 18 Mechanical Ventilator 45 06/30/19 02:00 123/77 06/30/19 01:45 69 17 132/82 (99) 100 06/30/19 01:30 70 21 129/97 (108) 100 06/30/19 01:20 70 20 45 06/30/19 01:15 75 20 138/81 (100) 100 06/30/19 01:00 67 16 121/75 (90) 100 06/30/19 01:00 16 Mechanical Ventilator 45 06/30/19 01:00 121/75 06/30/19 00:55 19 Mechanical Ventilator 45 06/30/19 00:50 18 Mechanical Ventilator 45 06/30/19 00:45 67 18 126/77 (93) 100 06/30/19 00:45 18 Mechanical Ventilator 45 06/30/19 00:45 126/77 06/30/19 00:30 17 Mechanical Ventilator 45 06/30/19 00:30 128/74 18 00:30 68 17 128/74 (92) 100 06/30/19 00:15 69 17 121/81 (94) 100 06/30/19 00:00 Mechanical Ventilator 06/30/19 00:00 98.5 68 20 120/75 (90) 100 06/30/19 00:00 20 Mechanical Ventilator 45 06/30/19 00:00 120/75 06/30/19 00:00 45 06/29/19 23:48 75 06/29/19 23:30 71 19 116/85 (95) 100 06/29/19 23:15 68 18 123/79 (94) 100 06/29/19 23:15 19 Mechanical Ventilator 45 06/29/19 23:15 121/81 06/29/19 23:10 19 Mechanical Ventilator 45 06/29/19 23:07 68 18 45 06/29/19 23:00 71 18 121/81 (94) 100 06/29/19 23:00 18 Mechanical Ventilator 45 06/29/19 23:00 123/79 06/29/19 22:45 73 17 125/85 (98) 100 06/29/19 22:30 74 17 119/81 (94) 100 06/29/19 22:30 119/81 06/29/19 22:15 72 17 121/79 (93) 100 06/29/19 22:03 134/82 06/29/19 22:00 20 Mechanical Ventilator 45 06/29/19 22:00 103/77 06/29/19 22:00 72 20 103/77 (86) 100 06/29/19 21:45 72 19 134/82 (99) 100 06/29/19 21:30 72 16 112/74 (87) 100 06/29/19 21:15 72 16 106/69 (81) 100 06/29/19 21:00 72 17 104/73 (83) 100 06/29/19 21:00 17 Mechanical Ventilator 45 06/29/19 21:00 104/73 06/29/19 21:00 72 20 45 06/29/19 20:45 77 17 111/74 (86) 100 06/29/19 20:30 79 16 103/71 (82) 100 06/29/19 20:15 80 17 104/65 (78) 100 06/29/19 20:00 Mechanical Ventilator 06/29/19 20:00 98.3 84 18 106/64 (78) 100 06/29/19 20:00 45 06/29/19 20:00 18 Mechanical Ventilator 45 06/29/19 20:00 106/64 06/29/19 19:48 85 19 45 06/29/19 19:45 84 18 130/68 (88) 100 06/29/19 19:30 86 19 129/61 (83) 100 06/29/19 19:28 86 06/29/19 19:15 88 18 112/59 (76) 100 06/29/19 19:00 19 Mechanical Ventilator 45 06/29/19 19:00 121/53 06/29/19 19:00 92 21 112/56 (74) 100 06/29/19 18:45 95 20 113/52 (72) 100 06/29/19 18:30 97 20 110/59 (76) 100 06/29/19 18:15 100 21 107/52 (70) 100 06/29/19 18:00 104 22 112/52 (72) 100 06/29/19 18:00 22 Mechanical Ventilator 45 06/29/19 18:00 112/52 06/29/19 17:55 22 Mechanical Ventilator 45 06/29/19 17:50 24 Mechanical Ventilator 45 06/29/19 17:45 26 Mechanical Ventilator 45 06/29/19 17:45 110 24 102/58 (73) 100 06/29/19 17:40 28 Mechanical Ventilator 45 06/29/19 17:35 29 Mechanical Ventilator 45 06/29/19 17:30 120 28 127/64 (85) 100 06/29/19 17:30 30 Mechanical Ventilator 45 06/29/19 17:25 31 Mechanical Ventilator 45 06/29/19 17:20 30 Mechanical Ventilator 45 06/29/19 17:17 99/38 06/29/19 17:15 134 30 110/93 (99) 100 06/29/19 17:15 31 Mechanical Ventilator 45 06/29/19 17:10 30 Mechanical Ventilator 45 06/29/19 17:05 29 Mechanical Ventilator 45 06/29/19 17:00 133 30 99/38 (58) 100 06/29/19 17:00 31 Mechanical Ventilator 45 06/29/19 17:00 99/38 06/29/19 16:35 96 23 45 06/29/19 16:30 94 24 143/61 (88) 100 06/29/19 16:00 Mechanical Ventilator 06/29/19 16:00 97.3 103 25 113/57 (75) 100 06/29/19 16:00 117 06/29/19 16:00 26 Mechanical Ventilator 45 06/29/19 16:00 113/57 06/29/19 16:00 45 06/29/19 15:45 107 26 105/50 (68) 100 06/29/19 15:30 109 27 105/57 (73) 100 06/29/19 15:15 115 29 91/55 (67) 100 06/29/19 15:00 29 Mechanical Ventilator 45 06/29/19 15:00 76/52 06/29/19 15:00 121 30 73/54 (60) 100 06/29/19 14:52 135 33 45 06/29/19 14:45 125 30 76/52 (60) 100 06/29/19 14:30 120 31 85/66 (72) 100 06/29/19 14:15 123 29 79/52 (61) 100 06/29/19 14:00 130 30 106/57 (73) 100 06/29/19 14:00 29 Mechanical Ventilator 45 06/29/19 14:00 106/57 06/29/19 13:45 129 29 80/51 (61) 100 06/29/19 13:30 133 25 86/59 (68) 100 06/29/19 13:15 143 24 92/64 (73) 100 06/29/19 13:10 24 Mechanical Ventilator 100 06/29/19 13:00 127 15 92/46 (61) 100 06/29/19 13:00 100/57 06/29/19 12:54 109 28 45 06/29/19 12:45 108 22 100/57 (71) 100 06/29/19 12:30 92/59 06/29/19 12:30 107 23 95/64 (74) 100 06/29/19 12:15 108 23 90/57 (68) 100 06/29/19 12:04 96.4 108 23 82/47 (59) 100 06/29/19 12:00 114 06/29/19 12:00 50 06/29/19 12:00 82/47 06/29/19 12:00 Mechanical Ventilator 06/29/19 11:56 79/50 06/29/19 11:45 108 22 81/54 (63) 100 I&O Intake and Output 06/29/19 06/30/19 19:00 07:00 Intake Total 3910.47117 ml 3475.3 ml Output Total 120 ml 80 ml Balance 3790.60089 ml 3395.3 ml Intake IV Total 3310.22000 ml 2625.3 ml Blood Product 500 ml 850 ml Other 100 ml Output Urine Total 120 ml 80 ml Dressing: bloody Drains: other - trach Respiratory: clear Abdomen: flat, non-tender Extremities: no tenderness Laboratory Tests Test 06/29/19 17:55 06/30/19 01:38 06/30/19 05:45 06/30/19 09:45 White Blood Count 19.0 K/UL (4.8-10.8) H 15.5 K/UL (4.8-10.8) H 15.1 K/UL (4.8-10.8) H Red Blood Count 2.09 M/UL (4.20-5.40) L 2.84 M/UL (4.20-5.40) L 2.84 M/UL (4.20-5.40) L Hemoglobin 6.6 G/DL (12.0-16.0) 8.8 G/DL (12.0-16.0) #L 8.7 G/DL (12.0-16.0) L Hematocrit 20.1 % (37.0-47.0) #L 26.3 % (37.0-47.0) #L 26.3 % (37.0-47.0) L Mean Corpuscular Volume 96 FL (80-99) 93 FL (80-99) 93 FL (80-99) Mean Corpuscular Hemoglobin 31.8 PG (27.0-31.0) H 30.9 PG (27.0-31.0) 30.7 PG (27.0-31.0) Mean Corpuscular Hemoglobin Concent 32.9 G/DL (32.0-36.0) 33.4 G/DL (32.0-36.0) 33.1 G/DL (32.0-36.0) Red Cell Distribution Width 14.4 % (11.6-14.8) 14.6 % (11.6-14.8) 14.1 % (11.6-14.8) Platelet Count 87 K/UL (150-450) #L 61 K/UL (150-450) L 60 K/UL (150-450) L Mean Platelet Volume 7.2 FL (6.5-10.1) 10.6 FL (6.5-10.1) H 10.8 FL (6.5-10.1) H Neutrophils (%) (Auto) % (45.0-75.0) % (45.0-75.0) % (45.0-75.0) Lymphocytes (%) (Auto) % (20.0-45.0) % (20.0-45.0) % (20.0-45.0) Monocytes (%) (Auto) % (1.0-10.0) % (1.0-10.0) % (1.0-10.0) Eosinophils (%) (Auto) % (0.0-3.0) % (0.0-3.0) % (0.0-3.0) Basophils (%) (Auto) % (0.0-2.0) % (0.0-2.0) % (0.0-2.0) Differential Total Cells Counted 100 100 100 Neutrophils % (Manual) 71 % (45-75) 89 % (45-75) H 92 % (45-75) H Lymphocytes % (Manual) 8 % (20-45) L 7 % (20-45) L 5 % (20-45) L Monocytes % (Manual) 1 % (1-10) 4 % (1-10) 3 % (1-10) Eosinophils % (Manual) 0 % (0-3) 0 % (0-3) 0 % (0-3) Basophils % (Manual) 0 % (0-2) 0 % (0-2) 0 % (0-2) Band Neutrophils 20 % (0-8) H 0 % (0-8) 0 % (0-8) Nucleated Red Blood Cells 1 /100 WBC Platelet Estimate Decreased L Decreased L Decreased L Platelet Morphology Normal Normal Normal Red Blood Cell Morphology Normal Hypochromasia 2+ 1+ Anisocytosis 1+ Sodium Level 139 MMOL/L (136-145) Potassium Level 5.5 MMOL/L (3.5-5.1) H Chloride Level 110 MMOL/L (98-107) H Carbon Dioxide Level 18 MMOL/L (21-32) L Anion Gap 11 mmol/L (5-15) Blood Urea Nitrogen 37 mg/dL (7-18) H Creatinine 3.4 MG/DL (0.55-1.30) #H Estimat Glomerular Filtration Rate 16.7 mL/min (>60) Glucose Level 217 MG/DL (74-106) H Calcium Level 6.1 MG/DL (8.5-10.1) L Arterial Blood pH 7.229 (7.350-7.450) Arterial Blood Partial Pressure CO2 38.9 mmHg (35.0-45.0) Arterial Blood Partial Pressure O2 125.4 mmHg (75.0-100.0) H Arterial Blood HCO3 15.9 mmol/L (22.0-26.0) *L Arterial Blood Oxygen Saturation 97.6 % (95-100) Arterial Blood Base Excess -10.8 (-2-2) *L Maxim Test Positive Assessment Post-op Diagnosis S/P angio-edema & tracheostomy Plan Additional Comments requires transfusion and renal consult Luis Olivo MD Jun 30, 2019 11:41
--- NOTE | 2019-06-30 11:58 | History & Physical ---
History of Present Illness General Reason for Hospitalization: Dyspnea/Respdistress Present Illness Allergies: Coded Allergies: No Known Allergies (Unverified , 06/29/19) Patient History Limited by: other Healthcare decision maker Resuscitation status Full Code Advanced Directive on File Patient History Narrative Pt history limited by trach/vent. Social History Social History: (1) Cocaine abuse Review of Systems Review of Symptoms General ROS: Pt is responsive Ophthalmic ROS: no visual changes ENT ROS: no nasal congestion Allergy and Immunology ROS: no urticaria, present angioedema Hematological and Lymphatic ROS: no swollen glands, unusual bleeding or bruising Endocrine ROS: no polyuria, weight changes Respiratory ROS: no cough/wheeze/rhonchi, however on trach/vent 45% Cardiovascular ROS: no chest pain or dyspnea on exertion Gastrointestinal ROS: no abdominal pain, bright red blood in stool. Musculoskeletal ROS: no myalgias or arthralgias Neurological ROS: no TIA or stroke symptoms Skin: normal for ethnicity, no rashes/wounds Physical Exam Physical Exam General appearance: alert, cooperative, appears stated age Head: Normocephalic, without obvious abnormality, atraumatic Eyes: conjunctivae/corneas clear. PERRL, EOM's intact. Fundi benign Throat: Lips, mucosa, and tongue normal. Teeth and gums normal, intubated/ vented Neck: supple, symmetrical, tracheostomy, no JVD Lungs: clear to auscultation bilaterally Heart: regular rate and rhythm, no murmur, no gallop Abdomen: soft, non-tender. Bowel sounds normal. No masses, no organomegaly Extremities: extremities normal, atraumatic, no cyanosis Pulses: 2+ and symmetric Skin: Skin color, texture, turgor normal. 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 intact Last 24 Hour Vital Signs Date Time Temp Pulse Resp B/P (MAP) Pulse Ox O2 Delivery O2 Flow Rate FiO2 06/30/19 10:41 53 19 45 06/30/19 09:25 59 20 45 06/30/19 08:30 64 20 123/85 (98) 100 06/30/19 08:00 45 06/30/19 08:00 98.3 64 17 107/76 (86) 100 06/30/19 08:00 62 06/30/19 08:00 Mechanical Ventilator 06/30/19 07:30 63 18 113/77 (89) 100 06/30/19 07:02 65 18 45 18/ 07:00 20 Mechanical Ventilator 45 06/30/19 07:00 118/83 [id number] 07:00 66 18 118/83 (95) 100 06/30/19 06:30 65 20 104/87 (93) 100 06/30/19 06:00 65 20 113/76 (88) 100 06/30/19 06:00 20 Mechanical Ventilator 45 06/30/19 06:00 113/78 06/30/19 05:30 69 22 119/75 (90) 100 06/30/19 05:19 20 Mechanical Ventilator 45 06/30/19 05:10 64 17 45 06/30/19 05:00 67 18 121/71 (88) 100 06/30/19 05:00 18 Mechanical Ventilator 45 06/30/19 05:00 121/71 06/30/19 04:45 68 18 107/75 (86) 100 06/30/19 04:30 113/74 06/30/19 04:30 68 18 113/74 (87) 100 06/30/19 04:15 68 19 121/74 (90) 100 06/30/19 04:15 121/74 06/30/19 04:10 93/65 06/30/19 04:00 Mechanical Ventilator 06/30/19 04:00 98.8 70 18 93/63 (73) 100 06/30/19 04:00 18 Mechanical Ventilator 45 06/30/19 04:00 93/63 06/30/19 04:00 45 06/30/19 03:45 66 17 120/79 (93) 100 18 03:30 67 18 122/79 (93) 100 19 03:15 69 17 119/73 (88) 100 06/30/19 03:07 67 18/ 03:04 67 21 45 18 03:00 22 Mechanical Ventilator 45 06/30/19 03:00 134/82 18 03:00 67 22 134/82 (99) 100 1819 02:45 68 18 122/73 (89) 100 18/19 02:30 68 18 123/77 (92) 100 06/30/19 02:15 69 18 121/77 (92) 100 06/30/19 02:00 68 18 123/77 (92) 100 06/30/19 02:00 18 Mechanical Ventilator 45 06/30/19 02:00 123/77 06/30/19 01:45 69 17 132/82 (99) 100 06/30/19 01:30 70 21 129/97 (108) 100 06/30/19 01:20 70 20 45 06/30/19 01:15 75 20 138/81 (100) 100 06/30/19 01:00 67 16 121/75 (90) 100 06/30/19 01:00 16 Mechanical Ventilator 45 06/30/19 01:00 121/75 06/30/19 00:55 19 Mechanical Ventilator 45 06/30/19 00:50 18 Mechanical Ventilator 45 06/30/19 00:45 67 18 126/77 (93) 100 06/30/19 00:45 18 Mechanical Ventilator 45 06/30/19 00:45 126/77 06/30/19 00:30 17 Mechanical Ventilator 45 06/30/19 00:30 128/74 06/30/19 00:30 68 17 128/74 (92) 100 06/30/19 00:15 69 17 121/81 (94) 100 06/30/19 00:00 Mechanical Ventilator 06/30/19 00:00 98.5 68 20 120/75 (90) 100 06/30/19 00:00 20 Mechanical Ventilator 45 06/30/19 00:00 120/75 06/30/19 00:00 45 06/29/19 23:48 75 06/29/19 23:30 71 19 116/85 (95) 100 06/29/19 23:15 68 18 123/79 (94) 100 06/29/19 23:15 19 Mechanical Ventilator 45 06/29/19 23:15 121/81 06/29/19 23:10 19 Mechanical Ventilator 45 06/29/19 23:07 68 18 45 06/29/19 23:00 71 18 121/81 (94) 100 06/29/19 23:00 18 Mechanical Ventilator 45 06/29/19 23:00 123/79 06/29/19 22:45 73 17 125/85 (98) 100 06/29/19 22:30 74 17 119/81 (94) 100 06/29/19 22:30 119/81 06/29/19 22:15 72 17 121/79 (93) 100 06/29/19 22:03 134/82 06/29/19 22:00 20 Mechanical Ventilator 45 06/29/19 22:00 103/77 06/29/19 22:00 72 20 103/77 (86) 100 06/29/19 21:45 72 19 134/82 (99) 100 06/29/19 21:30 72 16 112/74 (87) 100 06/29/19 21:15 72 16 106/69 (81) 100 06/29/19 21:00 72 17 104/73 (83) 100 06/29/19 21:00 17 Mechanical Ventilator 45 06/29/19 21:00 104/73 06/29/19 21:00 72 20 45 06/29/19 20:45 77 17 111/74 (86) 100 06/29/19 20:30 79 16 103/71 (82) 100 06/29/19 20:15 80 17 104/65 (78) 100 06/29/19 20:00 Mechanical Ventilator 06/29/19 20:00 98.3 84 18 106/64 (78) 100 06/29/19 20:00 45 06/29/19 20:00 18 Mechanical Ventilator 45 06/29/19 20:00 106/64 06/29/19 19:48 85 19 45 06/29/19 19:45 84 18 130/68 (88) 100 06/29/19 19:30 86 19 129/61 (83) 100 06/29/19 19:28 86 06/29/19 19:15 88 18 112/59 (76) 100 06/29/19 19:00 19 Mechanical Ventilator 45 06/29/19 19:00 121/53 06/29/19 19:00 92 21 112/56 (74) 100 06/29/19 18:45 95 20 113/52 (72) 100 06/29/19 18:30 97 20 110/59 (76) 100 06/29/19 18:15 100 21 107/52 (70) 100 06/29/19 18:00 104 22 112/52 (72) 100 06/29/19 18:00 22 Mechanical Ventilator 45 06/29/19 18:00 112/52 06/29/19 17:55 22 Mechanical Ventilator 45 06/29/19 17:50 24 Mechanical Ventilator 45 06/29/19 17:45 26 Mechanical Ventilator 45 06/29/19 17:45 110 24 102/58 (73) 100 06/29/19 17:40 28 Mechanical Ventilator 45 06/29/19 17:35 29 Mechanical Ventilator 45 06/29/19 17:30 120 28 127/64 (85) 100 06/29/19 17:30 30 Mechanical Ventilator 45 06/29/19 17:25 31 Mechanical Ventilator 45 06/29/19 17:20 30 Mechanical Ventilator 45 06/29/19 17:17 99/38 06/29/19 17:15 134 30 110/93 (99) 100 06/29/19 17:15 31 Mechanical Ventilator 45 06/29/19 17:10 30 Mechanical Ventilator 45 06/29/19 17:05 29 Mechanical Ventilator 45 06/29/19 17:00 133 30 99/38 (58) 100 06/29/19 17:00 31 Mechanical Ventilator 45 06/29/19 17:00 99/38 06/29/19 16:35 96 23 45 06/29/19 16:30 94 24 143/61 (88) 100 06/29/19 16:00 Mechanical Ventilator 06/29/19 16:00 97.3 103 25 113/57 (75) 100 06/29/19 16:00 117 06/29/19 16:00 26 Mechanical Ventilator 45 06/29/19 16:00 113/57 06/29/19 16:00 45 06/29/19 15:45 107 26 105/50 (68) 100 06/29/19 15:30 109 27 105/57 (73) 100 06/29/19 15:15 115 29 91/55 (67) 100 06/29/19 15:00 29 Mechanical Ventilator 45 06/29/19 15:00 76/52 06/29/19 15:00 121 30 73/54 (60) 100 06/29/19 14:52 135 33 45 06/29/19 14:45 125 30 76/52 (60) 100 06/29/19 14:30 120 31 85/66 (72) 100 06/29/19 14:15 123 29 79/52 (61) 100 06/29/19 14:00 130 30 106/57 (73) 100 06/29/19 14:00 29 Mechanical Ventilator 45 06/29/19 14:00 106/57 8/17/19 13:45 129 29 80/51 (61) 100 06/29/19 13:30 133 25 86/59 (68) 100 06/29/19 13:15 143 24 92/64 (73) 100 06/29/19 13:10 24 Mechanical Ventilator 100 06/29/19 13:00 127 15 92/46 (61) 100 06/29/19 13:00 100/57 06/29/19 12:54 109 28 45 06/29/19 12:45 108 22 100/57 (71) 100 06/29/19 12:30 92/59 06/29/19 12:30 107 23 95/64 (74) 100 06/29/19 12:15 108 23 90/57 (68) 100 06/29/19 12:04 96.4 108 23 82/47 (59) 100 06/29/19 12:00 114 06/29/19 12:00 50 06/29/19 12:00 82/47 06/29/19 12:00 Mechanical Ventilator 06/29/19 11:56 79/50 06/29/19 11:45 108 22 81/54 (63) 100 06/29/19 11:30 113 24 74/49 (57) 100 Intake and Output 06/29/19 06/30/19 19:00 07:00 Intake Total 3910.96115 ml 3475.3 ml Output Total 120 ml 80 ml Balance 3790.88161 ml 3395.3 ml Intake IV Total 3310.26168 ml 2625.3 ml Blood Product 500 ml 850 ml Other 100 ml Output Urine Total 120 ml 80 ml Laboratory Tests Test 06/29/19 17:55 06/30/19 01:38 06/30/19 05:45 06/30/19 09:45 White Blood Count 19.0 K/UL (4.8-10.8) H 15.5 K/UL (4.8-10.8) H 15.1 K/UL (4.8-10.8) H Red Blood Count 2.09 M/UL (4.20-5.40) L 2.84 M/UL (4.20-5.40) L 2.84 M/UL (4.20-5.40) L Hemoglobin 6.6 G/DL (12.0-16.0) 8.8 G/DL (12.0-16.0) #L 8.7 G/DL (12.0-16.0) L Hematocrit 20.1 % (37.0-47.0) #L 26.3 % (37.0-47.0) #L 26.3 % (37.0-47.0) L Mean Corpuscular Volume 96 FL (80-99) 93 FL (80-99) 93 FL (80-99) Mean Corpuscular Hemoglobin 31.8 PG (27.0-31.0) H 30.9 PG (27.0-31.0) 30.7 PG (27.0-31.0) Mean Corpuscular Hemoglobin Concent 32.9 G/DL (32.0-36.0) 33.4 G/DL (32.0-36.0) 33.1 G/DL (32.0-36.0) Red Cell Distribution Width 14.4 % (11.6-14.8) 14.6 % (11.6-14.8) 14.1 % (11.6-14.8) Platelet Count 87 K/UL (150-450) #L 61 K/UL (150-450) L 60 K/UL (150-450) L Mean Platelet Volume 7.2 FL (6.5-10.1) 10.6 FL (6.5-10.1) H 10.8 FL (6.5-10.1) H Neutrophils (%) (Auto) % (45.0-75.0) % (45.0-75.0) % (45.0-75.0) Lymphocytes (%) (Auto) % (20.0-45.0) % (20.0-45.0) % (20.0-45.0) Monocytes (%) (Auto) % (1.0-10.0) % (1.0-10.0) % (1.0-10.0) Eosinophils (%) (Auto) % (0.0-3.0) % (0.0-3.0) % (0.0-3.0) Basophils (%) (Auto) % (0.0-2.0) % (0.0-2.0) % (0.0-2.0) Differential Total Cells Counted 100 100 100 Neutrophils % (Manual) 71 % (45-75) 89 % (45-75) H 92 % (45-75) H Lymphocytes % (Manual) 8 % (20-45) L 7 % (20-45) L 5 % (20-45) L Monocytes % (Manual) 1 % (1-10) 4 % (1-10) 3 % (1-10) Eosinophils % (Manual) 0 % (0-3) 0 % (0-3) 0 % (0-3) Basophils % (Manual) 0 % (0-2) 0 % (0-2) 0 % (0-2) Band Neutrophils 20 % (0-8) H 0 % (0-8) 0 % (0-8) Nucleated Red Blood Cells 1 /100 WBC Platelet Estimate Decreased L Decreased L Decreased L Platelet Morphology Normal Normal Normal Red Blood Cell Morphology Normal Hypochromasia 2+ 1+ Anisocytosis 1+ Sodium Level 139 MMOL/L (136-145) Potassium Level 5.5 MMOL/L (3.5-5.1) H Chloride Level 110 MMOL/L (98-107) H Carbon Dioxide Level 18 MMOL/L (21-32) L Anion Gap 11 mmol/L (5-15) Blood Urea Nitrogen 37 mg/dL (7-18) H Creatinine 3.4 MG/DL (0.55-1.30) #H Estimat Glomerular Filtration Rate 16.7 mL/min (>60) Glucose Level 217 MG/DL (74-106) H Calcium Level 6.1 MG/DL (8.5-10.1) L Arterial Blood pH 7.229 (7.350-7.450) Arterial Blood Partial Pressure CO2 38.9 mmHg (35.0-45.0) Arterial Blood Partial Pressure O2 125.4 mmHg (75.0-100.0) H Arterial Blood HCO3 15.9 mmol/L (22.0-26.0) *L Arterial Blood Oxygen Saturation 97.6 % (95-100) Arterial Blood Base Excess -10.8 (-2-2) *L Maxim Test Positive Height (Feet): 5 Height (Inches): 4.00 Weight (Pounds): 189 Medications Current Medications Medications (Trade) Dose Ordered Sig/Dmitri Route PRN Reason Start Time Stop Time Status Last Admin Dose Admin Acetaminophen (Tylenol) 650 mg Q4H PRN RECTAL FEVER 06/29/19 11:01 07/29/19 11:00 Calcium Gluconate 1 gm/Sodium Chloride 120 ml @ 240 mls/hr ONCE IVPB 06/30/19 10:00 06/30/19 12:00 06/30/19 09:45 Chlorhexidine Gluconate (Lynn-Hex 2%) 1 applic DAILY@2000 TOPIC 06/29/19 20:00 07/29/19 19:59 06/29/19 20:08 Dextrose/ Electrolytes 1,000 ml @ 125 mls/hr Q8H IV 06/29/19 14:30 07/29/19 14:29 06/30/19 06:01 Dextrose/Sodium Chloride 1,000 ml @ 125 mls/hr Q8H IV 06/30/19 09:00 07/30/19 08:59 06/30/19 09:30 Diphenhydramine HCl (Benadryl) 25 mg Q6H PRN IVP Muscle Spasm 06/29/19 11:01 07/29/19 11:00 Epinephrine 1 mg/ Dextrose 250 ml @ 0 mls/hr Q24H IV 06/29/19 16:00 07/29/19 15:59 Fentanyl Citrate 2500 mcg/Sodium Chloride 250 ml @ 0 mls/hr Q24H IV 06/29/19 12:30 07/06/19 12:29 06/30/19 05:19 Hydromorphone HCl (Dilaudid) 0.5 mg Q3H PRN IVP Pain Score 1-3 06/29/19 11:02 07/06/19 11:01 Hydromorphone HCl (Dilaudid) 1 mg Q3H PRN IVP pain score 4-6 06/29/19 11:02 07/06/19 11:01 Hydromorphone HCl (Dilaudid) 2 mg Q3H PRN IVP pain score 7-10 06/29/19 11:02 07/06/19 11:01 Lorazepam (Ativan 2mg/ml 1ml) 0.5 mg Q24HRS PRN IV Agitation 06/29/19 11:36 07/06/19 11:35 06/29/19 15:10 Methylprednisolone Sodium Succinate (Solu-MEDROL) 60 mg EVERY 8 HOURS IVP 06/29/19 14:00 07/29/19 13:59 06/30/19 06:00 Metoclopramide HCl (Reglan) 10 mg Q6H PRN IVP Nausea & Vomiting 06/29/19 11:01 07/29/19 11:00 Norepinephrine Bitartrate 8 mg/ Dextrose 508 ml @ 0 mls/hr Q24H IV 06/29/19 12:30 07/29/19 12:29 06/30/19 04:10 Ondansetron HCl (Zofran) 4 mg Q6H PRN IVP Nausea & Vomiting 06/29/19 11:01 07/29/19 11:00 Pantoprazole (Protonix) 40 mg DAILY IVP 06/30/19 09:00 07/30/19 08:59 06/30/19 09:29 Sodium Chloride 550 ml @ 250 mls/hr Q2H12M ONCE IV 06/30/19 09:00 06/30/19 11:11 06/30/19 09:30 Vasopressin 100 units/Sodium Chloride 100 ml @ 2.4 mls/hr Q24H IV 06/29/19 14:15 07/29/19 14:14 06/29/19 14:54 Assessment/Plan Status: stable Status Narrative Present metabolic acidosis. Assessment/Plan: Hemodialysis today and tomorrow. Parameter order set for minimal output (0L). Pt to remain on pressors and titrate during HD for optimization. Consulted Dr. Cavazos, who is out of town. He will try to contact a partner to place hemodialysis catheter. Called ED, and phone number given for Dr. Olivo , however office number given and no answer (Monday). Spoke with Libia, ICU charge nurse who will attempt to also contact someone for placement. Will continue to monitor progress on placement of Jeison. [facility] Hospital declaration INPATIENT level of care is warranted for this patient because patient is a 89 year old with who presents with suspicion of . I have a high level of concern because . Patient is at high risk for . Plan of care/treatment include . Patient care is expected to be greater than 2 midnights. OBSERVATION level of care is warranted for this patient. Patient is a 89 year old with who presents with . Patient will be admitted for 1 midnight, but if additional night(s) is/are necessary, patient will be converted to inpatient status for the entire hospitalization Disposition: Once the patient is stable to leave the hospital, I anticipate the patient will likely be discharged to the following environment: Estimated discharge date: I spent 70 minutes on this patient's case, and minutes was dedicated to counseling and/or care coordination. MIPS (Merit-based Incentive Payment System) Applicable CPT: 23287, 84382 CHECK ALL THAT ARE MET: Measure #5 (CHF): All ages. Prescribe BETTYE/ARB upon discharge for patients with left ventricular systolic dysfunction. If not, the reason is clearly documented in the medical chart. Measure #8 (CHF): All ages. Prescribe a beta blanca upon discharge for patients with left ventricular systolic dysfunction. If not, the reason is clearly documented in the medical chart. Measure #47 Advance care plan or surrogate decision maker documented in the medical record. Measure #130 The provider has documented, updated, or reviewed the patients current medication list and has documented it in the patients note. Measure #374 (All): Send report to referring provider. Measure #407(Sepsis due to MSSA bacteremia): Age 18+ Patient treated with a beta-lactam antibiotic (Nafcillin, Oxacillin or Cefazolin) as definitive therapy. MEDICAL COMPLEXITY High complexity medical decision making (need 2/3 categories) Problem - need 4 points Acute/new problem with new plan for workup (4 points, 1 max) Acute/new problem without additional workup (3 points, 1 max) Unstable chronic problem actively being managed (2 point each, 2 max) Stable chronic problem actively being managed (1 point each, 2 max) Self-limited/transient process (constipation, muscle ache, etc) (1 point each , 2 max) Data - need 4 points Reviewed labs/imaging studies (1 points, 2 max) Independent review of imaging (EKG, xrays, etc) (2 points, 2 max) Discussed case with consult/other MD/RN (2 points, 2 max) High Risk - qualify if have one of the following: Severe exacerbation of acute problem, acute mental status change, IV narcotics , monitoring drug levels (vancomycin, INR, tacrolimus etc) Sharee Alvarez N.P. Jun 30, 2019 11:58
--- NOTE | 2019-06-30 12:03 | 48 Hour Post Anesthesia Eval ---
Post Anesthesia Evaluation Procedure: tracheostomy Date of Evaluation: Jun 30, 2019 Time of Evaluation: 12:02 Blood Pressure Systolic: 125 0: 70 Pulse Rate: 75 Respiratory Rate: 18 O2 Sat by Pulse Oximetry: 100 Airway: other - trach and ventilated Nausea: No Vomiting: No Hydration Status: other - see consult report; received blood transfusion and FFP Cardiopulmonary Status: improved Mental Status/LOC: other - oriented but sedated Follow-up Care/Observations: followed by renal and intensive care Post-Anesthesia Complications: none from anesthesia stand point Ashley Lam CRNA Jun 30, 2019 12:03
[2019-06-30] MEDS ORDERED: Lidocaine 1% Plain 30 ml INJ ONE (13:30)
--- NOTE | 2019-06-30 14:35 | Operative Note - PDOC ---
Operative Note Operative Note Date of Operation/Procedure: Jun 30, 2019 Chief Complaint: need for hemodialysis Pre-op Diagnosis: in need of hemodialysis Procedure: left femoral HD catheter placement with ultrasound guidance Post-op Diagnosis: in need of hemodialysis Post-op Diagnosis: same as pre-op Surgeon: Gladys So Anesthesia: local Specimen: none Complications: none Condition: stable Estimated Blood Loss: minimal Drains: none Implant(s) used?: Yes - left femoral hemodialysis catheter Indications for Procedure 59yo F in ICU in need of hemodialysis access. Patient's sister consented for placement of dialysis catheter Description of Procedure The patient was identified and placed in supine position. A time out was performed and her left thigh was prepped and draped in the usual sterile fashion. Ultrasound was used to identify the femoral vein and the skin was anesthetized with local anesthetic. A needle was introduced under ultrasound guidance into the femoral vein with good return of nonpulsatile dark blood. A wire was inserted and the needle was removed. A small incision was made adjacent to the wire and a dilator was used over the wire to dilate the planned tract. A 15cm dialysis catheter was then inserted over the wire and the wire was removed intact. Caps were placed on all ports and blood was withdrawn easily from all ports. All ports were flushed with normal saline and clamped. The line was secured with silk suture and a sterile dressing was placed. The patient tolerated the procedure well and remained in the ICU in satisfactory condition. Gladys So MD Jun 30, 2019 14:35
--- NOTE | 2019-06-30 14:56 | Pulmonolgy Critical Care Note ---
Critical Care - Asmt/Plan Assessment/Plan: Pulmonary CCM Progress Note Patient is a 59-year-old female admitted with acute airway compromise complicating Angioedema, she has a history of hypertension. Presented with a severe allergic reaction. She woke up 2 hours prior to arrival with her tongue being swollen. Her neck was also swollen. She has a hard time breathing. Denied fever, chills. No nausea no vomiting. Per chart review she takes hydrochlorothiazide, Flexeril. Admits to using Alcohol and Cocaine per chart review. No BETTYE inhibitor use. S/p 4 unit transfusion yesterday - post OR was hypotensive - had EBL 2000ml, remains on pressors - dose being reduced Oliguric, Renal following Allergies: No Known Allergies Past Medical History: Hypertension All Other Systems: negative except mentioned in HPI Physical Exam Vital signs noted, on ACV via tracheostomy Sp02: reviewed, normal General Appearance: Sedated Head: normocephalic, atraumatic Eyes: bilateral eye PERRL, bilateral eye EOMI ENT: Her tongue is very edematous. tracheostomy site, no active bleeding Neck: swollen, no LN Respiratory: chest non-tender, lungs clear, normal breath sounds Cardiovascular: Normal HS1, HS2, regular rate, rhythm, no murmur Gastrointestinal: normal bowel sounds, non tender, no mass, no organomegaly, no bruit, non-distended Musculoskeletal: back normal, gait/station normal, normal range of motion Neurological: Sedated, no focal signs, moving all limbs, PERRL Impression: Angioedema Severe Hypotension associated with acute blood loss - EBL 2000ml Previous Hypertension Cocaine use previously Plan HD per Renal Cardiology following IVF - 2L NS over 4 hours Levophed PRN MAP >=65 D5NS maintenance, DC K ISS Transfuse PRN Monitor labs PRN sedation SCD Wean FIO2 Solumedrol/Benadryl/Zantac PPX. EKG: tachycardiac: NSR, no acute ST changes Chest X-Ray: no consolidation, no effusion, no pneumothorax, no acute cardiopulmonary disease, tracheostomy position appropriate Critical Care - Objective Last 24 Hour Vital Signs Date Time Temp Pulse Resp B/P (MAP) Pulse Ox O2 Delivery O2 Flow Rate FiO2 06/30/19 14:00 113/77 06/30/19 13:43 59 19 35 06/30/19 13:00 109/68 06/30/19 13:00 57 18 109/66 (80) 100 06/30/19 12:30 56 18 111/68 (82) 100 06/30/19 12:03 75 18 100 06/30/19 12:00 35 06/30/19 12:00 114/73 06/30/19 12:00 98.2 54 18 118/75 (89) 100 06/30/19 11:42 120/82 06/30/19 11:30 58 17 123/76 (92) 100 06/30/19 11:00 59 18 122/74 (90) 100 06/30/19 11:00 122/74 06/30/19 10:41 53 19 35 06/30/19 10:30 57 18 128/73 (91) 100 06/30/19 10:00 123/80 06/30/19 10:00 62 19 123/80 (94) 100 06/30/19 09:30 66 19 114/77 (89) 100 06/30/19 09:30 114/77 06/30/19 09:25 59 20 45 06/30/19 09:00 63 18 126/85 (99) 100 06/30/19 09:00 126/85 06/30/19 08:30 64 20 123/85 (98) 100 06/30/19 08:00 45 06/30/19 08:00 98.3 64 17 107/76 (86) 100 06/30/19 08:00 62 06/30/19 08:00 109/76 06/30/19 08:00 Mechanical Ventilator 06/30/19 07:30 63 18 113/77 (89) 100 06/30/19 07:02 65 18 45 06/30/19 07:00 20 Mechanical Ventilator 45 06/30/19 07:00 118/83 06/30/19 07:00 66 18 118/83 (95) 100 06/30/19 06:30 65 20 104/87 (93) 100 06/30/19 06:00 65 20 113/76 (88) 100 06/30/19 06:00 20 Mechanical Ventilator 45 06/30/19 06:00 113/78 06/30/19 05:30 69 22 119/75 (90) 100 06/30/19 05:19 20 Mechanical Ventilator 45 8/18/19 05:10 64 17 45 06/30/19 05:00 67 18 121/71 (88) 100 06/30/19 05:00 18 Mechanical Ventilator 45 06/30/19 05:00 121/71 06/30/19 04:45 68 18 107/75 (86) 100 06/30/19 04:30 113/74 06/30/19 04:30 68 18 113/74 (87) 100 06/30/19 04:15 68 19 121/74 (90) 100 06/30/19 04:15 121/74 06/30/19 04:10 93/65 06/30/19 04:00 Mechanical Ventilator 06/30/19 04:00 98.8 70 18 93/63 (73) 100 06/30/19 04:00 18 Mechanical Ventilator 45 06/30/19 04:00 93/63 06/30/19 04:00 45 06/30/19 03:45 66 17 120/79 (93) 100 06/30/19 03:30 67 18 122/79 (93) 100 06/30/19 03:15 69 17 119/73 (88) 100 06/30/19 03:07 67 06/30/19 03:04 67 21 45 06/30/19 03:00 22 Mechanical Ventilator 45 06/30/19 03:00 134/82 06/30/19 03:00 67 22 134/82 (99) 100 06/30/19 02:45 68 18 122/73 (89) 100 06/30/19 02:30 68 18 123/77 (92) 100 06/30/19 02:15 69 18 121/77 (92) 100 06/30/19 02:00 68 18 123/77 (92) 100 06/30/19 02:00 18 Mechanical Ventilator 45 06/30/19 02:00 123/77 06/30/19 01:45 69 17 132/82 (99) 100 06/30/19 01:30 70 21 129/97 (108) 100 06/30/19 01:20 70 20 45 06/30/19 01:15 75 20 138/81 (100) 100 06/30/19 01:00 67 16 121/75 (90) 100 06/30/19 01:00 16 Mechanical Ventilator 45 06/30/19 01:00 121/75 06/30/19 00:55 19 Mechanical Ventilator 45 8/18/19 00:50 18 Mechanical Ventilator 45 06/30/19 00:45 67 18 126/77 (93) 100 06/30/19 00:45 18 Mechanical Ventilator 45 06/30/19 00:45 126/77 06/30/19 00:30 17 Mechanical Ventilator 45 06/30/19 00:30 128/74 06/30/19 00:30 68 17 128/74 (92) 100 06/30/19 00:15 69 17 121/81 (94) 100 06/30/19 00:00 Mechanical Ventilator 06/30/19 00:00 98.5 68 20 120/75 (90) 100 06/30/19 00:00 20 Mechanical Ventilator 45 06/30/19 00:00 120/75 06/30/19 00:00 45 06/29/19 23:48 75 06/29/19 23:30 71 19 116/85 (95) 100 06/29/19 23:15 68 18 123/79 (94) 100 06/29/19 23:15 19 Mechanical Ventilator 45 06/29/19 23:15 121/81 06/29/19 23:10 19 Mechanical Ventilator 45 06/29/19 23:07 68 18 45 06/29/19 23:00 71 18 121/81 (94) 100 06/29/19 23:00 18 Mechanical Ventilator 45 06/29/19 23:00 123/79 06/29/19 22:45 73 17 125/85 (98) 100 06/29/19 22:30 74 17 119/81 (94) 100 06/29/19 22:30 119/81 06/29/19 22:15 72 17 121/79 (93) 100 06/29/19 22:03 134/82 06/29/19 22:00 20 Mechanical Ventilator 45 06/29/19 22:00 103/77 06/29/19 22:00 72 20 103/77 (86) 100 06/29/19 21:45 72 19 134/82 (99) 100 06/29/19 21:30 72 16 112/74 (87) 100 06/29/19 21:15 72 16 106/69 (81) 100 06/29/19 21:00 72 17 104/73 (83) 100 06/29/19 21:00 17 Mechanical Ventilator 45 06/29/19 21:00 104/73 06/29/19 21:00 72 20 45 06/29/19 20:45 77 17 111/74 (86) 100 06/29/19 20:30 79 16 103/71 (82) 100 06/29/19 20:15 80 17 104/65 (78) 100 06/29/19 20:00 Mechanical Ventilator 06/29/19 20:00 98.3 84 18 106/64 (78) 100 06/29/19 20:00 45 06/29/19 20:00 18 Mechanical Ventilator 45 06/29/19 20:00 106/64 06/29/19 19:48 85 19 45 06/29/19 19:45 84 18 130/68 (88) 100 06/29/19 19:30 86 19 129/61 (83) 100 06/29/19 19:28 86 06/29/19 19:15 88 18 112/59 (76) 100 06/29/19 19:00 19 Mechanical Ventilator 45 06/29/19 19:00 121/53 06/29/19 19:00 92 21 112/56 (74) 100 06/29/19 18:45 95 20 113/52 (72) 100 06/29/19 18:30 97 20 110/59 (76) 100 06/29/19 18:15 100 21 107/52 (70) 100 06/29/19 18:00 104 22 112/52 (72) 100 06/29/19 18:00 22 Mechanical Ventilator 45 06/29/19 18:00 112/52 06/29/19 17:55 22 Mechanical Ventilator 45 06/29/19 17:50 24 Mechanical Ventilator 45 06/29/19 17:45 26 Mechanical Ventilator 45 06/29/19 17:45 110 24 102/58 (73) 100 06/29/19 17:40 28 Mechanical Ventilator 45 06/29/19 17:35 29 Mechanical Ventilator 45 06/29/19 17:30 120 28 127/64 (85) 100 06/29/19 17:30 30 Mechanical Ventilator 45 06/29/19 17:25 31 Mechanical Ventilator 45 06/29/19 17:20 30 Mechanical Ventilator 45 06/29/19 17:17 99/38 06/29/19 17:15 134 30 110/93 (99) 100 06/29/19 17:15 31 Mechanical Ventilator 45 06/29/19 17:10 30 Mechanical Ventilator 45 06/29/19 17:05 29 Mechanical Ventilator 45 06/29/19 17:00 133 30 99/38 (58) 100 06/29/19 17:00 31 Mechanical Ventilator 45 06/29/19 17:00 99/38 06/29/19 16:35 96 23 45 06/29/19 16:30 94 24 143/61 (88) 100 06/29/19 16:00 Mechanical Ventilator 06/29/19 16:00 97.3 103 25 113/57 (75) 100 06/29/19 16:00 117 06/29/19 16:00 26 Mechanical Ventilator 45 06/29/19 16:00 113/57 06/29/19 16:00 45 06/29/19 15:45 107 26 105/50 (68) 100 06/29/19 15:30 109 27 105/57 (73) 100 06/29/19 15:15 115 29 91/55 (67) 100 06/29/19 15:00 29 Mechanical Ventilator 45 06/29/19 15:00 76/52 06/29/19 15:00 121 30 73/54 (60) 100 06/29/19 14:52 135 33 45 Critical Care - Subjective ROS Limited/Unobtainable: No Condition: improving IV Access: central EKG Rhythm: Sinus Rhythm FI02: 35 Vent Support Breath Rate: 18 Vent Support Mode: AC Vent Tidal Volume: 550 Sputum Amount: Small PEEP: 5.0 PIP: 23 I&O: Intake and Output 06/29/19 06/30/19 19:00 07:00 Intake Total 3910.26286 ml 3475.3 ml Output Total 120 ml 80 ml Balance 3790.02452 ml 3395.3 ml Intake IV Total 3310.35265 ml 2625.3 ml Blood Product 500 ml 850 ml Other 100 ml Output Urine Total 120 ml 80 ml Deangelo John MD Jun 30, 2019 14:56
[2019-06-30] MEDS: Vasopressin 100 UNITS in NS 95 ML IV SCH (15:40)
[2019-06-30] MEDS: EPINEPHrine 1mg/1ml Amp 1 MG in D5W 249 ML IV SCH (16:00)
[2019-06-30] MEDS ORDERED: Tubing IV Secondary IV ONE (16:27)
[2019-06-30] MEDS ORDERED: NS 275ml ONE (16:27)
[2019-06-30] MEDS ORDERED: NS 500ML ONE (16:27)
[2019-06-30] MEDS ORDERED: D5 1/2NS 1000ml IV ONE (16:27)
[2019-06-30] MEDS ORDERED: Tubing Blood Filter IV ONE (16:27)
[2019-06-30] MEDS: NovoLOG Insulin Flexpen SUBQ SCH ×2 (16:30→21:00)
[2019-06-30 16:44] LABS: ANION GAP 9 mmol/L (5-15); BLOOD UREA NITROGEN 44 mg/dL (7-18); CALCIUM 6.3 MG/DL (8.5-10.1); CARBON DIOXIDE 18 MMOL/L (21-32); CHLORIDE 110 MMOL/L (98-107); CREATININE 4.1 MG/DL (0.55-1.30); POTASSIUM 4.9 MMOL/L (3.5-5.1); SODIUM 137 MMOL/L (136-145)
[2019-06-30] MEDS ORDERED: NovoLOG Insulin Flexpen SUBQ SCH (16:50)
[2019-06-30] MEDS: Dyna-Hex 2% Top Sol 2oz TOPIC SCH (20:57)
[2019-06-30] MEDS: Solu-MEDROL 40mg Inj IVP SCH (21:44)
[2019-07-01] VITALS (56 sets, daily range): BP systolic 103–168; BP diastolic 11–100
[2019-07-01] MEDS: D5 1/2NS 1,000 ML IV SCH ×3 (02:11→16:41)
[2019-07-01] MEDS: fentaNYL Citrate 2,500 MCG in NS 200 ML IV SCH ×2 (02:12→12:13)
[2019-07-01 04:54] LABS: HEMATOCRIT 26.5 % (37.0-47.0); HEMOGLOBIN 9.1 G/DL (12.0-16.0); MEAN CORPUSCULAR VOLUME 91 FL (80-99); PLATELET COUNT 38 K/UL (150-450); RED CELL DISTRIBUTION WIDTH 14.2 % (11.6-14.8); WHITE BLOOD COUNT 14.3 K/UL (4.8-10.8)
[2019-07-01 05:23] LABS: ALANINE AMINOTRANSFERASE 463 U/L (12-78); ALBUMIN 2.2 G/DL (3.4-5.0); ALBUMIN/GLOBULIN RATIO 0.9 (1.0-2.7); ALKALINE PHOSPHATASE 48 U/L (46-116); ANION GAP 11 mmol/L (5-15); ASPARTATE AMINO TRANSFERASE 756 U/L (15-37); BILIRUBIN,TOTAL 0.3 MG/DL (0.2-1.0); BLOOD UREA NITROGEN 41 mg/dL (7-18); CALCIUM 6.4 MG/DL (8.5-10.1); CARBON DIOXIDE 18 MMOL/L (21-32); CHLORIDE 105 MMOL/L (98-107); CREATININE 3.8 MG/DL (0.55-1.30); POTASSIUM 4.5 MMOL/L (3.5-5.1); SODIUM 134 MMOL/L (136-145)
[2019-07-01] MEDS: Solu-MEDROL 40mg Inj IVP SCH ×3 (06:01→22:12)
[2019-07-01] MEDS: NovoLOG Insulin Flexpen SUBQ SCH ×4 (06:02→21:10)
--- NOTE | 2019-07-01 08:51 | Critical Care Progress Note ---
Assessment/Plan Assessment/Plan Angioedema Severe Hypotension Previous Hypertension Cocaine abuse s/p emergent trach Anemia secondary to blood loss acute respiratory failure leukocytosis, possible steroid related thrombocytopenia renal failure, acute on chronic toxic metabolic encephalopathy PLAN post op care iv steroids heme, renal evaluation vent support very ill monitor for bleeding ICU care support as able monitor hemodynamics medications/laboratory data/nursing notes/ICU care reviewed in detail note reviewed and edited care discussed with RN and RT ICU time spent 40 minutes Critical Care - Subjective Interval Events: all events noted and reviewed still on vent and trach ROS Limited/Unobtainable: Yes Condition: critical EKG Rhythm: Sinus Rhythm I&O: Intake and Output 06/30/19 07/01/19 19:00 07:00 Intake Total 3478.550 ml 1885.75 ml Output Total 143 ml 3190 ml Balance 3335.550 ml -1304.25 ml Intake IV Total 2928.550 ml 1885.75 ml Blood Product 500 ml Other 50 ml Output Urine Total 143 ml 190 ml Hemodialysis UF 3000 ml Critical Care - Objective Last 24 Hour Vital Signs Date Time Temp Pulse Resp B/P (MAP) Pulse Ox O2 Delivery O2 Flow Rate FiO2 07/01/19 08:00 35 07/01/19 07:19 58 18 35 07/01/19 07:00 56 18 138/75 (96) 100 07/01/19 07:00 18 Mechanical Ventilator 35 07/01/19 07:00 138/75 07/01/19 06:30 60 19 134/78 (96) 100 07/01/19 06:00 18 Mechanical Ventilator 35 07/01/19 06:00 130/67 07/01/19 06:00 58 18 130/67 (88) 100 07/01/19 05:30 56 18 130/80 (97) 100 07/01/19 05:00 57 19 132/84 (100) 100 07/01/19 05:00 19 Mechanical Ventilator 35 07/01/19 05:00 132/84 07/01/19 04:54 57 19 35 07/01/19 04:30 56 17 125/81 (96) 100 07/01/19 04:00 Mechanical Ventilator 07/01/19 04:00 98.8 61 19 130/77 (94) 100 07/01/19 04:00 19 Mechanical Ventilator 35 07/01/19 04:00 130/77 07/01/19 04:00 35 07/01/19 03:48 57 07/01/19 03:45 58 18 130/83 (99) 100 07/01/19 03:30 57 20 139/80 (99) 100 07/01/19 03:15 57 18 133/76 (95) 100 07/01/19 03:00 54 18 134/79 (97) 100 07/01/19 03:00 18 Mechanical Ventilator 35 07/01/19 03:00 134/79 07/01/19 02:42 56 18 35 07/01/19 02:30 56 18 122/79 (93) 100 07/01/19 02:12 16 Mechanical Ventilator 35 07/01/19 02:00 117/76 07/01/19 02:00 58 18 117/76 (90) 99 07/01/19 01:30 59 18 113/71 (85) 99 07/01/19 01:17 59 18 35 07/01/19 01:00 64 18 103/69 (80) 97 07/01/19 01:00 18 Mechanical Ventilator 35 07/01/19 01:00 103/69 07/01/19 00:30 61 18 135/11 (52) 98 07/01/19 00:00 54 07/01/19 00:00 Mechanical Ventilator 07/01/19 00:00 18 Mechanical Ventilator 35 07/01/19 00:00 141/86 07/01/19 00:00 99.0 54 18 141/86 (104) 100 07/01/19 00:00 35 06/30/19 23:50 57 06/30/19 23:30 54 18 134/94 (107) 97 06/30/19 23:01 62 22 35 06/30/19 23:00 18 Mechanical Ventilator 35 06/30/19 23:00 126/95 06/30/19 23:00 54 18 126/95 (105) 100 06/30/19 22:30 55 18 135/81 (99) 98 06/30/19 22:00 18 Mechanical Ventilator 35 06/30/19 22:00 134/77 06/30/19 22:00 53 19 137/72 (93) 98 06/30/19 21:36 65 18 35 06/30/19 21:30 56 19 135/84 (101) 99 06/30/19 21:00 57 19 133/83 (100) 99 18 21:00 19 Mechanical Ventilator 35 06/30/19 21:00 133/83 06/30/19 20:35 56 18 20:30 57 19 118/73 (88) 97 06/30/19 20:00 Mechanical Ventilator 8 20:00 19 Mechanical Ventilator 35 06/30/19 20:00 100/72 1819 20:00 60 18 20:00 35 06/30/19 20:00 99.0 60 19 100/72 (81) 99 06/30/19 19:30 60 20 112/81 (91) 100 06/30/19 19:16 61 19 35 06/30/19 19:00 58 18 132/81 (98) 98 06/30/19 19:00 18 Mechanical Ventilator 35 06/30/19 19:00 110/90 06/30/19 18:30 56 18 121/90 (100) 98 06/30/19 18:00 54 19 119/85 (96) 98 06/30/19 18:00 18 Mechanical Ventilator 35 06/30/19 18:00 121/90 06/30/19 17:30 54 18 129/79 (96) 98 06/30/19 17:14 55 18 35 06/30/19 17:00 54 18 111/75 (87) 98 06/30/19 17:00 18 Mechanical Ventilator 30 06/30/19 17:00 129/79 06/30/19 16:30 56 18 116/74 (88) 98 06/30/19 16:00 35 06/30/19 16:00 98.1 61 18 109/73 (85) 99 06/30/19 16:00 Mechanical Ventilator 06/30/19 16:00 18 Mechanical Ventilator 35 06/30/19 16:00 109/73 06/30/19 16:00 55 06/30/19 15:51 18 Mechanical Ventilator 35 06/30/19 15:30 60 20 99/65 (76) 98 06/30/19 15:01 76 21 35 06/30/19 15:00 68 20 134/80 (98) 96 06/30/19 15:00 18 Mechanical Ventilator 40 06/30/19 15:00 134/80 1819 15:00 67 18 134/80 (98) 100 8/18/19 14:30 55 18 109/76 (87) 100 06/30/19 14:00 55 18 113/77 (89) 100 06/30/19 14:00 19 Mechanical Ventilator 40 06/30/19 14:00 113/77 06/30/19 13:43 59 19 35 06/30/19 13:30 98.3 56 19 122/73 (89) 100 06/30/19 13:00 19 Mechanical Ventilator 40 06/30/19 13:00 109/68 06/30/19 13:00 57 18 109/66 (80) 100 06/30/19 12:30 56 18 111/68 (82) 100 06/30/19 12:03 75 18 100 06/30/19 12:00 Mechanical Ventilator 06/30/19 12:00 35 06/30/19 12:00 18 Mechanical Ventilator 40 06/30/19 12:00 114/73 06/30/19 12:00 98.2 54 18 118/75 (89) 100 06/30/19 12:00 62 06/30/19 11:42 120/82 06/30/19 11:30 58 17 123/76 (92) 100 06/30/19 11:00 59 18 122/74 (90) 100 06/30/19 11:00 18 Mechanical Ventilator 40 06/30/19 11:00 122/74 06/30/19 10:41 53 19 35 06/30/19 10:30 57 18 128/73 (91) 100 06/30/19 10:00 18 Mechanical Ventilator 45 06/30/19 10:00 123/80 06/30/19 10:00 62 19 123/80 (94) 100 06/30/19 09:30 66 19 114/77 (89) 100 06/30/19 09:30 114/77 06/30/19 09:25 59 20 45 06/30/19 09:00 63 18 126/85 (99) 100 06/30/19 09:00 19 Mechanical Ventilator 45 06/30/19 09:00 126/85 Labs: Labs Test 06/29/19 05:40 06/29/19 10:20 06/29/19 10:40 06/29/19 17:55 White Blood Count 12.6 K/UL (4.8-10.8) 16.5 K/UL (4.8-10.8) 19.0 K/UL (4.8-10.8) Red Blood Count 4.65 M/UL (4.20-5.40) 2.98 M/UL (4.20-5.40) 2.09 M/UL (4.20-5.40) Hemoglobin 14.6 G/DL (12.0-16.0) 9.5 G/DL (12.0-16.0) 6.6 G/DL (12.0-16.0) Hematocrit 46.0 % (37.0-47.0) 29.5 % (37.0-47.0) 20.1 % (37.0-47.0) Mean Corpuscular Volume 99 FL (80-99) 99 FL (80-99) 96 FL (80-99) Mean Corpuscular Hemoglobin 31.4 PG (27.0-31.0) 31.9 PG (27.0-31.0) 31.8 PG (27.0-31.0) Mean Corpuscular Hemoglobin Concent 31.7 G/DL (32.0-36.0) 32.2 G/DL (32.0-36.0) 32.9 G/DL (32.0-36.0) Red Cell Distribution Width 14.9 % (11.6-14.8) 15.1 % (11.6-14.8) 14.4 % (11.6-14.8) Platelet Count 258 K/UL (150-450) 197 K/UL (150-450) 87 K/UL (150-450) Mean Platelet Volume 7.7 FL (6.5-10.1) 7.9 FL (6.5-10.1) 7.2 FL (6.5-10.1) Neutrophils (%) (Auto) 57.5 % (45.0-75.0) % (45.0-75.0) % (45.0-75.0) Lymphocytes (%) (Auto) 30.2 % (20.0-45.0) % (20.0-45.0) % (20.0-45.0) Monocytes (%) (Auto) 8.4 % (1.0-10.0) % (1.0-10.0) % (1.0-10.0) Eosinophils (%) (Auto) 2.4 % (0.0-3.0) % (0.0-3.0) % (0.0-3.0) Basophils (%) (Auto) 1.5 % (0.0-2.0) % (0.0-2.0) % (0.0-2.0) Prothrombin Time 9.3 SEC (9.30-11.50) 10.7 SEC (9.30-11.50) Prothromb Time International Ratio 0.9 (0.9-1.1) 1.0 (0.9-1.1) Activated Partial Thromboplast Time 26 SEC (23-33) 25 SEC (23-33) Urine Color Pale yellow Urine Appearance Clear Urine pH 6.5 (4.5-8.0) Urine Specific [place] 1.010 (1.005-1.035) Urine Protein 2+ (NEGATIVE) Urine Glucose (UA) Negative (NEGATIVE) Urine Ketones Negative (NEGATIVE) Urine Blood 2+ (NEGATIVE) Urine Nitrite Negative (NEGATIVE) Urine Bilirubin Negative (NEGATIVE) Urine Urobilinogen Normal MG/DL (0.0-1.0) Urine Leukocyte Esterase Negative (NEGATIVE) Urine RBC 0-2 /HPF (0 - 2) Urine WBC 0 /HPF (0 - 2) Urine Squamous Epithelial Cells Occasional /LPF Urine Bacteria Occasional /HPF (NONE) Sodium Level 141 MMOL/L (136-145) 143 MMOL/L (136-145) Potassium Level 3.3 MMOL/L (3.5-5.1) 3.7 MMOL/L (3.5-5.1) Chloride Level 106 MMOL/L (98-107) 112 MMOL/L (98-107) Carbon Dioxide Level 26 MMOL/L (21-32) 18 MMOL/L (21-32) Anion Gap 9 mmol/L (5-15) 13 mmol/L (5-15) Blood Urea Nitrogen 19 mg/dL (7-18) 24 mg/dL (7-18) Creatinine 1.6 MG/DL (0.55-1.30) 1.8 MG/DL (0.55-1.30) Estimat Glomerular Filtration Rate 39.9 mL/min (>60) 34.8 mL/min (>60) Glucose Level 106 MG/DL (74-106) 203 MG/DL (74-106) Calcium Level 9.4 MG/DL (8.5-10.1) 7.5 MG/DL (8.5-10.1) Troponin I 0.010 ng/mL (0.000-0.056) Urine Opiates Screen Negative (NEGATIVE) Urine Barbiturates Screen Negative (NEGATIVE) Phencyclidine (PCP) Screen Negative (NEGATIVE) Urine Amphetamines Screen Negative (NEGATIVE) Urine Benzodiazepines Screen Negative (NEGATIVE) Urine Cocaine Screen Positive (NEGATIVE) Urine Marijuana (THC) Screen Negative (NEGATIVE) Differential Total Cells Counted 100 100 Neutrophils % (Manual) 83 % (45-75) 71 % (45-75) Lymphocytes % (Manual) 6 % (20-45) 8 % (20-45) Monocytes % (Manual) 7 % (1-10) 1 % (1-10) Eosinophils % (Manual) 1 % (0-3) 0 % (0-3) Basophils % (Manual) 0 % (0-2) 0 % (0-2) Band Neutrophils 3 % (0-8) 20 % (0-8) Platelet Estimate Adequate Decreased Platelet Morphology Normal Normal Hypochromasia 1+ Anisocytosis 1+ Arterial Blood pH 7.300 (7.350-7.450) Arterial Blood Partial Pressure CO2 34.7 mmHg (35.0-45.0) Arterial Blood Partial Pressure O2 137.3 mmHg (75.0-100.0) Arterial Blood HCO3 16.7 mmol/L (22.0-26.0) Arterial Blood Oxygen Saturation 97.9 % (95-100) Arterial Blood Base Excess -8.9 (-2-2) Maxim Test Positive Nucleated Red Blood Cells 1 /100 WBC Red Blood Cell Morphology Normal Test 06/30/19 01:38 06/30/19 05:45 06/30/19 09:45 06/30/19 15:15 White Blood Count 15.5 K/UL (4.8-10.8) 15.1 K/UL (4.8-10.8) Red Blood Count 2.84 M/UL (4.20-5.40) 2.84 M/UL (4.20-5.40) Hemoglobin 8.8 G/DL (12.0-16.0) 8.7 G/DL (12.0-16.0) Hematocrit 26.3 % (37.0-47.0) 26.3 % (37.0-47.0) Mean Corpuscular Volume 93 FL (80-99) 93 FL (80-99) Mean Corpuscular Hemoglobin 30.9 PG (27.0-31.0) 30.7 PG (27.0-31.0) Mean Corpuscular Hemoglobin Concent 33.4 G/DL (32.0-36.0) 33.1 G/DL (32.0-36.0) Red Cell Distribution Width 14.6 % (11.6-14.8) 14.1 % (11.6-14.8) Platelet Count 61 K/UL (150-450) 60 K/UL (150-450) Mean Platelet Volume 10.6 FL (6.5-10.1) 10.8 FL (6.5-10.1) Neutrophils (%) (Auto) % (45.0-75.0) % (45.0-75.0) Lymphocytes (%) (Auto) % (20.0-45.0) % (20.0-45.0) Monocytes (%) (Auto) % (1.0-10.0) % (1.0-10.0) Eosinophils (%) (Auto) % (0.0-3.0) % (0.0-3.0) Basophils (%) (Auto) % (0.0-2.0) % (0.0-2.0) Differential Total Cells Counted 100 100 Neutrophils % (Manual) 89 % (45-75) 92 % (45-75) Lymphocytes % (Manual) 7 % (20-45) 5 % (20-45) Monocytes % (Manual) 4 % (1-10) 3 % (1-10) Eosinophils % (Manual) 0 % (0-3) 0 % (0-3) Basophils % (Manual) 0 % (0-2) 0 % (0-2) Band Neutrophils 0 % (0-8) 0 % (0-8) Platelet Estimate Decreased Decreased Platelet Morphology Normal Normal Hypochromasia 2+ 1+ Anisocytosis 1+ Sodium Level 139 MMOL/L (136-145) Potassium Level 5.5 MMOL/L (3.5-5.1) Chloride Level 110 MMOL/L (98-107) Carbon Dioxide Level 18 MMOL/L (21-32) Anion Gap 11 mmol/L (5-15) Blood Urea Nitrogen 37 mg/dL (7-18) Creatinine 3.4 MG/DL (0.55-1.30) Estimat Glomerular Filtration Rate 16.7 mL/min (>60) Glucose Level 217 MG/DL (74-106) Calcium Level 6.1 MG/DL (8.5-10.1) Arterial Blood pH 7.229 (7.350-7.450) 7.234 (7.350-7.450) Arterial Blood Partial Pressure CO2 38.9 mmHg (35.0-45.0) 34.8 mmHg (35.0-45.0) Arterial Blood Partial Pressure O2 125.4 mmHg (75.0-100.0) 73.8 mmHg (75.0-100.0) Arterial Blood HCO3 15.9 mmol/L (22.0-26.0) 14.4 mmol/L (22.0-26.0) Arterial Blood Oxygen Saturation 97.6 % (95-100) 93.3 % (95-100) Arterial Blood Base Excess -10.8 (-2-2) -12.1 (-2-2) Maxim Test Positive Positive Test 06/30/19 15:40 07/01/19 03:45 Prothrombin Time 11.1 SEC (9.30-11.50) Prothromb Time International Ratio 1.0 (0.9-1.1) Activated Partial Thromboplast Time 27 SEC (23-33) Sodium Level 137 MMOL/L (136-145) 134 MMOL/L (136-145) Potassium Level 4.9 MMOL/L (3.5-5.1) 4.5 MMOL/L (3.5-5.1) Chloride Level 110 MMOL/L (98-107) 105 MMOL/L (98-107) Carbon Dioxide Level 18 MMOL/L (21-32) 18 MMOL/L (21-32) Anion Gap 9 mmol/L (5-15) 11 mmol/L (5-15) Blood Urea Nitrogen 44 mg/dL (7-18) 41 mg/dL (7-18) Creatinine 4.1 MG/DL (0.55-1.30) 3.8 MG/DL (0.55-1.30) Estimat Glomerular Filtration Rate 13.5 mL/min (>60) 14.7 mL/min (>60) Glucose Level 141 MG/DL (74-106) 133 MG/DL (74-106) Calcium Level 6.3 MG/DL (8.5-10.1) 6.4 MG/DL (8.5-10.1) White Blood Count 14.3 K/UL (4.8-10.8) Red Blood Count 2.90 M/UL (4.20-5.40) Hemoglobin 9.1 G/DL (12.0-16.0) Hematocrit 26.5 % (37.0-47.0) Mean Corpuscular Volume 91 FL (80-99) Mean Corpuscular Hemoglobin 31.4 PG (27.0-31.0) Mean Corpuscular Hemoglobin Concent 34.4 G/DL (32.0-36.0) Red Cell Distribution Width 14.2 % (11.6-14.8) Platelet Count 38 K/UL (150-450) Mean Platelet Volume 12.8 FL (6.5-10.1) Neutrophils (%) (Auto) % (45.0-75.0) Lymphocytes (%) (Auto) % (20.0-45.0) Monocytes (%) (Auto) % (1.0-10.0) Eosinophils (%) (Auto) % (0.0-3.0) Basophils (%) (Auto) % (0.0-2.0) Phosphorus Level 3.8 MG/DL (2.5-4.9) Total Bilirubin 0.3 MG/DL (0.2-1.0) Aspartate Amino Transf (AST/SGOT) 756 U/L (15-37) Alanine Aminotransferase (ALT/SGPT) 463 U/L (12-78) Alkaline Phosphatase 48 U/L (46-116) Total Protein 4.7 G/DL (6.4-8.2) Albumin 2.2 G/DL (3.4-5.0) Globulin 2.5 g/dL Albumin/Globulin Ratio 0.9 (1.0-2.7) Objective: WDWN on trach and vent reduced LOC reduced breath sounds bilaterally without rhonchi or wheeze [id number] without MRG NABS nontender no HSM no CCE nonfocal but sedated NABS nontender no distention Accucheck: 139 Radames Ray MD Jul 01, 2019 08:51
--- NOTE | 2019-07-01 12:35 | Nephrology Progress Note ---
Assessment/Plan Plan [facility] - HD. Monitor Labs. Subjective Subjective On HD now. Stable run. Now c/o. Objective Objective Last 24 Hour Vital Signs Date Time Temp Pulse Resp B/P (MAP) Pulse Ox O2 Delivery O2 Flow Rate FiO2 07/01/19 12:15 56 17 143/90 (107) 100 07/01/19 12:13 18 Mechanical Ventilator 35 07/01/19 12:00 62 07/01/19 12:00 56 17 148/76 (100) 100 07/01/19 11:45 59 18 139/81 (100) 100 07/01/19 11:30 56 18 121/71 (88) 100 07/01/19 11:15 58 18 131/79 (96) 100 07/01/19 11:00 56 18 121/71 (88) 100 07/01/19 10:51 56 18 35 07/01/19 10:30 57 18 120/74 (89) 99 07/01/19 10:00 59 18 132/72 (92) 99 07/01/19 10:00 18 Mechanical Ventilator 35 07/01/19 09:30 60 18 118/76 (90) 100 07/01/19 09:12 59 07/01/19 09:00 18 Mechanical Ventilator 35 07/01/19 09:00 58 18 119/73 (88) 99 07/01/19 08:54 58 18 35 07/01/19 08:45 56 18 138/75 (96) 100 07/01/19 08:30 63 18 138/75 (96) 100 07/01/19 08:15 63 18 138/78 (98) 100 07/01/19 08:00 99.1 63 18 122/77 (92) 100 07/01/19 08:00 Mechanical Ventilator 07/01/19 08:00 18 Mechanical Ventilator 35 07/01/19 08:00 122/77 07/01/19 08:00 35 07/01/19 07:30 63 18 121/77 (92) 100 07/01/19 07:19 58 18 35 07/01/19 07:00 56 18 138/75 (96) 100 07/01/19 07:00 18 Mechanical Ventilator 35 07/01/19 07:00 138/75 07/01/19 06:30 60 19 134/78 (96) 100 07/01/19 06:00 18 Mechanical Ventilator 35 07/01/19 06:00 130/67 07/01/19 06:00 58 18 130/67 (88) 100 07/01/19 05:30 56 18 130/80 (97) 100 07/01/19 05:00 57 19 132/84 (100) 100 07/01/19 05:00 19 Mechanical Ventilator 35 07/01/19 05:00 132/84 07/01/19 04:54 57 19 35 07/01/19 04:30 56 17 125/81 (96) 100 07/01/19 04:00 Mechanical Ventilator 07/01/19 04:00 98.8 61 19 130/77 (94) 100 07/01/19 04:00 19 Mechanical Ventilator 35 07/01/19 04:00 130/77 07/01/19 04:00 35 07/01/19 03:48 57 07/01/19 03:45 58 18 130/83 (99) 100 07/01/19 03:30 57 20 139/80 (99) 100 07/01/19 03:15 57 18 133/76 (95) 100 07/01/19 03:00 54 18 134/79 (97) 100 07/01/19 03:00 18 Mechanical Ventilator 35 07/01/19 03:00 134/79 07/01/19 02:42 56 18 35 07/01/19 02:30 56 18 122/79 (93) 100 07/01/19 02:12 16 Mechanical Ventilator 35 07/01/19 02:00 117/76 07/01/19 02:00 58 18 117/76 (90) 99 07/01/19 01:30 59 18 113/71 (85) 99 07/01/19 01:17 59 18 35 07/01/19 01:00 64 18 103/69 (80) 97 07/01/19 01:00 18 Mechanical Ventilator 35 07/01/19 01:00 103/69 07/01/19 00:30 61 18 135/11 (52) 98 07/01/19 00:00 54 07/01/19 00:00 Mechanical Ventilator 07/01/19 00:00 18 Mechanical Ventilator 35 07/01/19 00:00 141/86 07/01/19 00:00 99.0 54 18 141/86 (104) 100 07/01/19 00:00 35 818/19 23:50 57 818/19 23:30 54 18 134/94 (107) 97 [id number] 23:01 62 22 35 818/19 23:00 18 Mechanical Ventilator 35 818 23:00 126/95 818/19 23:00 54 18 126/95 (105) 100 1819 22:30 55 18 135/81 (99) 98 18 22:00 18 Mechanical Ventilator 35 06/30/19 22:00 134/77 818/19 22:00 53 19 137/72 (93) 98 06/30/19 21:36 65 18 35 06/30/19 21:30 56 19 135/84 (101) 99 06/30/19 21:00 57 19 133/83 (100) 99 18 21:00 19 Mechanical Ventilator 35 06/30/19 21:00 133/83 06/30/19 20:35 56 06/30/19 20:30 57 19 118/73 (88) 97 06/30/19 20:00 Mechanical Ventilator 06/30/19 20:00 19 Mechanical Ventilator 35 06/30/19 20:00 100/72 18/19 20:00 60 18 20:00 35 06/30/19 20:00 99.0 60 19 100/72 (81) 99 1819 19:30 60 20 112/81 (91) 100 06/30/19 19:16 61 19 35 19 19:00 58 18 132/81 (98) 98 06/30/19 19:00 18 Mechanical Ventilator 35 06/30/19 19:00 110/90 18/19 18:30 56 18 121/90 (100) 98 18/19 18:00 54 19 119/85 (96) 98 06/30/19 18:00 18 Mechanical Ventilator 35 06/30/19 18:00 121/90 18/19 17:30 54 18 129/79 (96) 98 18/19 17:14 55 18 35 18/19 17:00 54 18 111/75 (87) 98 06/30/19 17:00 18 Mechanical Ventilator 30 06/30/19 17:00 129/79 8/18/19 16:30 56 18 116/74 (88) 98 06/30/19 16:00 35 06/30/19 16:00 98.1 61 18 109/73 (85) 99 06/30/19 16:00 Mechanical Ventilator 06/30/19 16:00 18 Mechanical Ventilator 35 06/30/19 16:00 109/73 06/30/19 16:00 55 06/30/19 15:51 18 Mechanical Ventilator 35 06/30/19 15:30 60 20 99/65 (76) 98 06/30/19 15:01 76 21 35 06/30/19 15:00 68 20 134/80 (98) 96 06/30/19 15:00 18 Mechanical Ventilator 40 06/30/19 15:00 134/80 06/30/19 15:00 67 18 134/80 (98) 100 06/30/19 14:30 55 18 109/76 (87) 100 06/30/19 14:00 55 18 113/77 (89) 100 06/30/19 14:00 19 Mechanical Ventilator 40 06/30/19 14:00 113/77 06/30/19 13:43 59 19 35 06/30/19 13:30 98.3 56 19 122/73 (89) 100 06/30/19 13:00 19 Mechanical Ventilator 40 06/30/19 13:00 109/68 06/30/19 13:00 57 18 109/66 (80) 100 Intake and Output 06/30/19 07/01/19 19:00 07:00 Intake Total 3478.550 ml 1885.75 ml Output Total 143 ml 3190 ml Balance 3335.550 ml -1304.25 ml Intake IV Total 2928.550 ml 1885.75 ml Blood Product 500 ml Other 50 ml Output Urine Total 143 ml 190 ml Hemodialysis UF 3000 ml Laboratory Tests 06/30/19 15:15: Arterial Blood pH 7.234*L, Arterial Blood Partial Pressure CO2 34.8L, Arterial Blood Partial Pressure O2 73.8L, Arterial Blood HCO3 14.4*L, Arterial Blood Oxygen Saturation 93.3L, Arterial Blood Base Excess -12.1*L, Maxim Test Positive 06/30/19 15:40: Prothrombin Time 11.1, Prothromb Time International Ratio 1.0, Activated Partial Thromboplast Time 27, Sodium Level 137, Potassium Level 4.9, Chloride Level 110H, Carbon Dioxide Level 18L, Anion Gap 9, Blood Urea Nitrogen 44H, Creatinine 4.1H, Estimat Glomerular Filtration Rate 13.5, Glucose Level 141H, Calcium Level 6.3L 07/01/19 03:45: Sodium Level 134L, Potassium Level 4.5, Chloride Level 105, Carbon Dioxide Level 18L, Anion Gap 11, Blood Urea Nitrogen 41H, Creatinine 3.8H, Estimat Glomerular Filtration Rate 14.7, Glucose Level 133H, Calcium Level 6.4L, White Blood Count 14.3H, Red Blood Count 2.90L, Hemoglobin 9.1L, Hematocrit 26.5L, Mean Corpuscular Volume 91, Mean Corpuscular Hemoglobin 31.4H, Mean Corpuscular Hemoglobin Concent 34.4, Red Cell Distribution Width 14.2, Platelet Count 38L, Mean Platelet Volume 12.8H, Neutrophils (%) (Auto) , Lymphocytes (%) (Auto) , Monocytes (%) (Auto) , Eosinophils (%) (Auto) , Basophils (%) (Auto) , Differential Total Cells Counted 100, Neutrophils % (Manual) 93H, Lymphocytes % (Manual) 5L, Monocytes % (Manual) 1, Eosinophils % (Manual) 0, Basophils % ( Manual) 0, Band Neutrophils 1, Nucleated Red Blood Cells 1, Platelet Estimate DecreasedL, Platelet Morphology Normal, Red Blood Cell Morphology Normal, Phosphorus Level 3.8, Total Bilirubin 0.3, Aspartate Amino Transf (AST/SGOT) 756H, Alanine Aminotransferase (ALT/SGPT) 463H, Alkaline Phosphatase 48, Total Protein 4.7L, Albumin 2.2L, Globulin 2.5, Albumin/Globulin Ratio 0.9L Height (Feet): 5 Height (Inches): 4.00 Weight (Pounds): 177 Objective CV RR Lungs CTA Abd SNT. BS + E No CCE Jeremy Martinez MD Jul 01, 2019 12:35
[2019-07-01] MEDS: Vasopressin 100 UNITS in NS 95 ML IV SCH (14:15)
--- NOTE | 2019-07-01 15:35 | Cardiac Electrophysiology PN ---
Assessment/Plan Assessment/Plan 1. Angioedema, s/p emergency tracheostomy on the Vent 2. Severe Hypotension , Now off both pressors. 3. Hx of Hypertension 4. Cocaine abuse 5. ARF on HD now 6. Anemia partial blood loss during tracheostomy DW RN Subjective Subjective Intubated via tracheostomy. Had HD yesterday for the first time. Pressors were both DCed at 8 am. Objective Last 24 Hour Vital Signs Date Time Temp Pulse Resp B/P (MAP) Pulse Ox O2 Delivery O2 Flow Rate FiO2 07/01/19 14:56 57 20 35 07/01/19 14:00 54 19 154/89 (110) 100 07/01/19 14:00 19 Mechanical Ventilator 35 07/01/19 13:30 54 19 158/86 (110) 100 07/01/19 13:00 56 19 150/100 (117) 100 07/01/19 13:00 19 Mechanical Ventilator 35 07/01/19 12:41 77 24 35 07/01/19 12:30 99.0 52 20 149/85 (106) 100 07/01/19 12:15 56 17 143/90 (107) 100 07/01/19 12:13 18 Mechanical Ventilator 35 07/01/19 12:00 35 07/01/19 12:00 Mechanical Ventilator 07/01/19 12:00 17 Mechanical Ventilator 35 07/01/19 12:00 62 07/01/19 12:00 56 17 148/76 (100) 100 07/01/19 11:45 59 18 139/81 (100) 100 07/01/19 11:30 56 18 121/71 (88) 100 07/01/19 11:15 58 18 131/79 (96) 100 07/01/19 11:00 18 Mechanical Ventilator 35 07/01/19 11:00 56 18 121/71 (88) 100 07/01/19 10:51 56 18 35 07/01/19 10:30 57 18 120/74 (89) 99 07/01/19 10:00 59 18 132/72 (92) 99 07/01/19 10:00 18 Mechanical Ventilator 35 07/01/19 09:30 60 18 118/76 (90) 100 07/01/19 09:12 59 07/01/19 09:00 18 Mechanical Ventilator 35 07/01/19 09:00 58 18 119/73 (88) 99 07/01/19 08:54 58 18 35 07/01/19 08:45 56 18 138/75 (96) 100 07/01/19 08:30 63 18 138/75 (96) 100 07/01/19 08:15 63 18 138/78 (98) 100 07/01/19 08:00 99.1 63 18 122/77 (92) 100 07/01/19 08:00 Mechanical Ventilator 07/01/19 08:00 18 Mechanical Ventilator 35 07/01/19 08:00 122/77 07/01/19 08:00 35 07/01/19 07:30 63 18 121/77 (92) 100 07/01/19 07:19 58 18 35 07/01/19 07:00 56 18 138/75 (96) 100 07/01/19 07:00 18 Mechanical Ventilator 35 07/01/19 07:00 138/75 07/01/19 06:30 60 19 134/78 (96) 100 07/01/19 06:00 18 Mechanical Ventilator 35 07/01/19 06:00 130/67 07/01/19 06:00 58 18 130/67 (88) 100 07/01/19 05:30 56 18 130/80 (97) 100 07/01/19 05:00 57 19 132/84 (100) 100 07/01/19 05:00 19 Mechanical Ventilator 35 07/01/19 05:00 132/84 07/01/19 04:54 57 19 35 07/01/19 04:30 56 17 125/81 (96) 100 07/01/19 04:00 Mechanical Ventilator 07/01/19 04:00 98.8 61 19 130/77 (94) 100 07/01/19 04:00 19 Mechanical Ventilator 35 07/01/19 04:00 130/77 07/01/19 04:00 35 07/01/19 03:48 57 07/01/19 03:45 58 18 130/83 (99) 100 07/01/19 03:30 57 20 139/80 (99) 100 07/01/19 03:15 57 18 133/76 (95) 100 07/01/19 03:00 54 18 134/79 (97) 100 07/01/19 03:00 18 Mechanical Ventilator 35 07/01/19 03:00 134/79 07/01/19 02:42 56 18 35 07/01/19 02:30 56 18 122/79 (93) 100 07/01/19 02:12 16 Mechanical Ventilator 35 07/01/19 02:00 117/76 07/01/19 02:00 58 18 117/76 (90) 99 07/01/19 01:30 59 18 113/71 (85) 99 07/01/19 01:17 59 18 35 07/01/19 01:00 64 18 103/69 (80) 97 07/01/19 01:00 18 Mechanical Ventilator 35 07/01/19 01:00 103/69 07/01/19 00:30 61 18 135/11 (52) 98 07/01/19 00:00 54 07/01/19 00:00 Mechanical Ventilator 07/01/19 00:00 18 Mechanical Ventilator 35 07/01/19 00:00 141/86 07/01/19 00:00 99.0 54 18 141/86 (104) 100 07/01/19 00:00 35 06/30/19 23:50 57 06/30/19 23:30 54 18 134/94 (107) 97 06/30/19 23:01 62 22 35 06/30/19 23:00 18 Mechanical Ventilator 35 06/30/19 23:00 126/95 06/30/19 23:00 54 18 126/95 (105) 100 06/30/19 22:30 55 18 135/81 (99) 98 06/30/19 22:00 18 Mechanical Ventilator 35 06/30/19 22:00 134/77 06/30/19 22:00 53 19 137/72 (93) 98 06/30/19 21:36 65 18 35 06/30/19 21:30 56 19 135/84 (101) 99 06/30/19 21:00 57 19 133/83 (100) 99 06/30/19 21:00 19 Mechanical Ventilator 35 06/30/19 21:00 133/83 06/30/19 20:35 56 06/30/19 20:30 57 19 118/73 (88) 97 06/30/19 20:00 Mechanical Ventilator 06/30/19 20:00 19 Mechanical Ventilator 35 06/30/19 20:00 100/72 06/30/19 20:00 60 06/30/19 20:00 35 06/30/19 20:00 99.0 60 19 100/72 (81) 99 06/30/19 19:30 60 20 112/81 (91) 100 06/30/19 19:16 61 19 35 06/30/19 19:00 58 18 132/81 (98) 98 06/30/19 19:00 18 Mechanical Ventilator 35 06/30/19 19:00 110/90 06/30/19 18:30 56 18 121/90 (100) 98 06/30/19 18:00 54 19 119/85 (96) 98 06/30/19 18:00 18 Mechanical Ventilator 35 06/30/19 18:00 121/90 06/30/19 17:30 54 18 129/79 (96) 98 06/30/19 17:14 55 18 35 06/30/19 17:00 54 18 111/75 (87) 98 06/30/19 17:00 18 Mechanical Ventilator 30 06/30/19 17:00 129/79 06/30/19 16:30 56 18 116/74 (88) 98 06/30/19 16:00 35 06/30/19 16:00 98.1 61 18 109/73 (85) 99 06/30/19 16:00 Mechanical Ventilator 06/30/19 16:00 18 Mechanical Ventilator 35 06/30/19 16:00 109/73 06/30/19 16:00 55 06/30/19 15:51 18 Mechanical Ventilator 35 06/30/19 15:30 60 20 99/65 (76) 98 Intake and Output 06/30/19 07/01/19 19:00 07:00 Intake Total 3478.550 ml 1885.75 ml Output Total 143 ml 3190 ml Balance 3335.550 ml -1304.25 ml Intake IV Total 2928.550 ml 1885.75 ml Blood Product 500 ml Other 50 ml Output Urine Total 143 ml 190 ml Hemodialysis UF 3000 ml Laboratory Tests Test 06/30/19 15:40 07/01/19 03:45 Prothrombin Time 11.1 SEC (9.30-11.50) Prothromb Time International Ratio 1.0 (0.9-1.1) Activated Partial Thromboplast Time 27 SEC (23-33) Sodium Level 137 MMOL/L (136-145) 134 MMOL/L (136-145) L Potassium Level 4.9 MMOL/L (3.5-5.1) 4.5 MMOL/L (3.5-5.1) Chloride Level 110 MMOL/L (98-107) H 105 MMOL/L (98-107) Carbon Dioxide Level 18 MMOL/L (21-32) L 18 MMOL/L (21-32) L Anion Gap 9 mmol/L (5-15) 11 mmol/L (5-15) Blood Urea Nitrogen 44 mg/dL (7-18) H 41 mg/dL (7-18) H Creatinine 4.1 MG/DL (0.55-1.30) H 3.8 MG/DL (0.55-1.30) H Estimat Glomerular Filtration Rate 13.5 mL/min (>60) 14.7 mL/min (>60) Glucose Level 141 MG/DL (74-106) H 133 MG/DL (74-106) H Calcium Level 6.3 MG/DL (8.5-10.1) L 6.4 MG/DL (8.5-10.1) L White Blood Count 14.3 K/UL (4.8-10.8) H Red Blood Count 2.90 M/UL (4.20-5.40) L Hemoglobin 9.1 G/DL (12.0-16.0) L Hematocrit 26.5 % (37.0-47.0) L Mean Corpuscular Volume 91 FL (80-99) Mean Corpuscular Hemoglobin 31.4 PG (27.0-31.0) H Mean Corpuscular Hemoglobin Concent 34.4 G/DL (32.0-36.0) Red Cell Distribution Width 14.2 % (11.6-14.8) Platelet Count 38 K/UL (150-450) L Mean Platelet Volume 12.8 FL (6.5-10.1) H Neutrophils (%) (Auto) % (45.0-75.0) Lymphocytes (%) (Auto) % (20.0-45.0) Monocytes (%) (Auto) % (1.0-10.0) Eosinophils (%) (Auto) % (0.0-3.0) Basophils (%) (Auto) % (0.0-2.0) Differential Total Cells Counted 100 Neutrophils % (Manual) 93 % (45-75) H Lymphocytes % (Manual) 5 % (20-45) L Monocytes % (Manual) 1 % (1-10) Eosinophils % (Manual) 0 % (0-3) Basophils % (Manual) 0 % (0-2) Band Neutrophils 1 % (0-8) Nucleated Red Blood Cells 1 /100 WBC Platelet Estimate Decreased L Platelet Morphology Normal Red Blood Cell Morphology Normal Phosphorus Level 3.8 MG/DL (2.5-4.9) Total Bilirubin 0.3 MG/DL (0.2-1.0) Aspartate Amino Transf (AST/SGOT) 756 U/L (15-37) H Alanine Aminotransferase (ALT/SGPT) 463 U/L (12-78) H Alkaline Phosphatase 48 U/L (46-116) Total Protein 4.7 G/DL (6.4-8.2) L Albumin 2.2 G/DL (3.4-5.0) L Globulin 2.5 g/dL Albumin/Globulin Ratio 0.9 (1.0-2.7) L Objective HEENT: Trancheostomy in place LUNGS: Coarse rhonchi CVS: RRR ABDOMEN: Obese EXT: No edema. Left groin Jeison Catheter Giles Rodarte MD Jul 01, 2019 15:35
[2019-07-01] MEDS: EPINEPHrine 1mg/1ml Amp 1 MG in D5W 249 ML IV SCH (15:44)
--- NOTE | 2019-07-01 17:30 | Diagnostic Imaging Report ---
Indication: Abnormal renal function tests Technique: Grayscale and duplex images of the kidneys, retroperitoneum, and bladder were obtained. Comparison: none Findings: Right kidney measures 11.4 cm in length. Left kidney measures 11 cm in length. Both kidneys demonstrate normal echogenicity. There is minimal right hydronephrosis. Punctate calcification is seen in the right renal sinus. There is mild fullness to the left renal collecting system. No focal parenchymal abnormality. Normal inferior vena cava. Bladder is empty, contains a Nieto catheter. Impression: Mild right hydronephrosis and left renal collecting system fullness, significance/etiology uncertain. Empty bladder with a Nieto catheter Possible nonobstructing right renal calyceal calculi.
--- NOTE | 2019-07-01 17:48 | General Surgery Progress Note ---
General Surgery-Progress Note Subjective Procedure Performed emergemcy tracheostomy Symptoms: improved Additional Comments she is smiling and trying to communicate Objective Last 24 Hour Vital Signs Date Time Temp Pulse Resp B/P (MAP) Pulse Ox O2 Delivery O2 Flow Rate FiO2 07/01/19 16:52 53 20 35 07/01/19 16:30 98.5 54 20 161/90 (113) 100 07/01/19 16:00 53 18 152/86 (108) 100 07/01/19 16:00 35 07/01/19 16:00 53 07/01/19 16:00 Mechanical Ventilator 07/01/19 15:30 54 19 154/82 (106) 100 07/01/19 15:00 55 18 145/95 (112) 100 07/01/19 14:56 57 20 35 07/01/19 14:30 74 20 130/76 (94) 100 07/01/19 14:00 54 19 154/89 (110) 100 07/01/19 14:00 19 Mechanical Ventilator 35 07/01/19 13:30 54 19 158/86 (110) 100 07/01/19 13:00 56 19 150/100 (117) 100 07/01/19 13:00 19 Mechanical Ventilator 35 07/01/19 12:45 56 19 149/85 (106) 100 07/01/19 12:41 77 24 35 07/01/19 12:30 99.0 52 20 149/85 (106) 100 07/01/19 12:15 56 17 143/90 (107) 100 07/01/19 12:13 18 Mechanical Ventilator 35 07/01/19 12:00 35 07/01/19 12:00 Mechanical Ventilator 07/01/19 12:00 17 Mechanical Ventilator 35 07/01/19 12:00 62 07/01/19 12:00 56 17 148/76 (100) 100 07/01/19 11:45 59 18 139/81 (100) 100 07/01/19 11:30 56 18 121/71 (88) 100 07/01/19 11:15 58 18 131/79 (96) 100 07/01/19 11:00 18 Mechanical Ventilator 35 07/01/19 11:00 56 18 121/71 (88) 100 07/01/19 10:51 56 18 35 07/01/19 10:30 57 18 120/74 (89) 99 07/01/19 10:00 59 18 132/72 (92) 99 07/01/19 10:00 18 Mechanical Ventilator 35 07/01/19 09:30 60 18 118/76 (90) 100 07/01/19 09:12 59 07/01/19 09:00 18 Mechanical Ventilator 35 07/01/19 09:00 58 18 119/73 (88) 99 07/01/19 08:54 58 18 35 07/01/19 08:45 56 18 138/75 (96) 100 07/01/19 08:30 63 18 138/75 (96) 100 07/01/19 08:15 63 18 138/78 (98) 100 07/01/19 08:00 99.1 63 18 122/77 (92) 100 07/01/19 08:00 Mechanical Ventilator 07/01/19 08:00 18 Mechanical Ventilator 35 07/01/19 08:00 122/77 07/01/19 08:00 35 07/01/19 07:30 63 18 121/77 (92) 100 07/01/19 07:19 58 18 35 07/01/19 07:00 56 18 138/75 (96) 100 07/01/19 07:00 18 Mechanical Ventilator 35 07/01/19 07:00 138/75 07/01/19 06:30 60 19 134/78 (96) 100 07/01/19 06:00 18 Mechanical Ventilator 35 07/01/19 06:00 130/67 07/01/19 06:00 58 18 130/67 (88) 100 07/01/19 05:30 56 18 130/80 (97) 100 07/01/19 05:00 57 19 132/84 (100) 100 07/01/19 05:00 19 Mechanical Ventilator 35 07/01/19 05:00 132/84 07/01/19 04:54 57 19 35 07/01/19 04:30 56 17 125/81 (96) 100 07/01/19 04:00 Mechanical Ventilator 07/01/19 04:00 98.8 61 19 130/77 (94) 100 07/01/19 04:00 19 Mechanical Ventilator 35 07/01/19 04:00 130/77 07/01/19 04:00 35 07/01/19 03:48 57 07/01/19 03:45 58 18 130/83 (99) 100 07/01/19 03:30 57 20 139/80 (99) 100 07/01/19 03:15 57 18 133/76 (95) 100 07/01/19 03:00 54 18 134/79 (97) 100 07/01/19 03:00 18 Mechanical Ventilator 35 07/01/19 03:00 134/79 07/01/19 02:42 56 18 35 07/01/19 02:30 56 18 122/79 (93) 100 07/01/19 02:12 16 Mechanical Ventilator 35 07/01/19 02:00 117/76 07/01/19 02:00 58 18 117/76 (90) 99 07/01/19 01:30 59 18 113/71 (85) 99 07/01/19 01:17 59 18 35 07/01/19 01:00 64 18 103/69 (80) 97 07/01/19 01:00 18 Mechanical Ventilator 35 07/01/19 01:00 103/69 07/01/19 00:30 61 18 135/11 (52) 98 07/01/19 00:00 54 07/01/19 00:00 Mechanical Ventilator 07/01/19 00:00 18 Mechanical Ventilator 35 07/01/19 00:00 141/86 07/01/19 00:00 99.0 54 18 141/86 (104) 100 07/01/19 00:00 35 06/30/19 23:50 57 06/30/19 23:30 54 18 134/94 (107) 97 06/30/19 23:01 62 22 35 06/30/19 23:00 18 Mechanical Ventilator 35 06/30/19 23:00 126/95 06/30/19 23:00 54 18 126/95 (105) 100 06/30/19 22:30 55 18 135/81 (99) 98 06/30/19 22:00 18 Mechanical Ventilator 35 06/30/19 22:00 134/77 06/30/19 22:00 53 19 137/72 (93) 98 06/30/19 21:36 65 18 35 06/30/19 21:30 56 19 135/84 (101) 99 06/30/19 21:00 57 19 133/83 (100) 99 06/30/19 21:00 19 Mechanical Ventilator 35 06/30/19 21:00 133/83 06/30/19 20:35 56 06/30/19 20:30 57 19 118/73 (88) 97 06/30/19 20:00 Mechanical Ventilator 06/30/19 20:00 19 Mechanical Ventilator 35 06/30/19 20:00 100/72 06/30/19 20:00 60 06/30/19 20:00 35 06/30/19 20:00 99.0 60 19 100/72 (81) 99 06/30/19 19:30 60 20 112/81 (91) 100 06/30/19 19:16 61 19 35 06/30/19 19:00 58 18 132/81 (98) 98 06/30/19 19:00 18 Mechanical Ventilator 35 06/30/19 19:00 110/90 06/30/19 18:30 56 18 121/90 (100) 98 06/30/19 18:00 54 19 119/85 (96) 98 06/30/19 18:00 18 Mechanical Ventilator 35 06/30/19 18:00 121/90 I&O Intake and Output 06/30/19 07/01/19 19:00 07:00 Intake Total 3478.550 ml 1885.75 ml Output Total 143 ml 3190 ml Balance 3335.550 ml -1304.25 ml Intake IV Total 2928.550 ml 1885.75 ml Blood Product 500 ml Other 50 ml Output Urine Total 143 ml 190 ml Hemodialysis UF 3000 ml Dressing: bloody Respiratory: clear Abdomen: soft, non-tender, present bowel sounds Extremities: no tenderness Laboratory Tests Test 07/01/19 03:45 White Blood Count 14.3 K/UL (4.8-10.8) H Red Blood Count 2.90 M/UL (4.20-5.40) L Hemoglobin 9.1 G/DL (12.0-16.0) L Hematocrit 26.5 % (37.0-47.0) L Mean Corpuscular Volume 91 FL (80-99) Mean Corpuscular Hemoglobin 31.4 PG (27.0-31.0) H Mean Corpuscular Hemoglobin Concent 34.4 G/DL (32.0-36.0) Red Cell Distribution Width 14.2 % (11.6-14.8) Platelet Count 38 K/UL (150-450) L Mean Platelet Volume 12.8 FL (6.5-10.1) H Neutrophils (%) (Auto) % (45.0-75.0) Lymphocytes (%) (Auto) % (20.0-45.0) Monocytes (%) (Auto) % (1.0-10.0) Eosinophils (%) (Auto) % (0.0-3.0) Basophils (%) (Auto) % (0.0-2.0) Differential Total Cells Counted 100 Neutrophils % (Manual) 93 % (45-75) H Lymphocytes % (Manual) 5 % (20-45) L Monocytes % (Manual) 1 % (1-10) Eosinophils % (Manual) 0 % (0-3) Basophils % (Manual) 0 % (0-2) Band Neutrophils 1 % (0-8) Nucleated Red Blood Cells 1 /100 WBC Platelet Estimate Decreased L Platelet Morphology Normal Red Blood Cell Morphology Normal Sodium Level 134 MMOL/L (136-145) L Potassium Level 4.5 MMOL/L (3.5-5.1) Chloride Level 105 MMOL/L (98-107) Carbon Dioxide Level 18 MMOL/L (21-32) L Anion Gap 11 mmol/L (5-15) Blood Urea Nitrogen 41 mg/dL (7-18) H Creatinine 3.8 MG/DL (0.55-1.30) H Estimat Glomerular Filtration Rate 14.7 mL/min (>60) Glucose Level 133 MG/DL (74-106) H Calcium Level 6.4 MG/DL (8.5-10.1) L Phosphorus Level 3.8 MG/DL (2.5-4.9) Total Bilirubin 0.3 MG/DL (0.2-1.0) Aspartate Amino Transf (AST/SGOT) 756 U/L (15-37) H Alanine Aminotransferase (ALT/SGPT) 463 U/L (12-78) H Alkaline Phosphatase 48 U/L (46-116) Total Protein 4.7 G/DL (6.4-8.2) L Albumin 2.2 G/DL (3.4-5.0) L Globulin 2.5 g/dL Albumin/Globulin Ratio 0.9 (1.0-2.7) L Assessment Post-op Diagnosis S/P angio-edema & tracheostomy Additional Comments Renal failure Plan Additional Comments continue current treatment Luis Olivo MD Jul 01, 2019 17:48
--- NOTE | 2019-07-01 18:01 | Consultation ---
History of Present Illness General Chief Complaint: Dyspnea/Respdistress Present Illness Allergies: Coded Allergies: No Known Allergies (Unverified , 06/29/19) Patient History Healthcare decision maker WILFRID DAVE Resuscitation status Full Code Advanced Directive on File Physical Exam Last 24 Hour Vital Signs Date Time Temp Pulse Resp B/P (MAP) Pulse Ox O2 Delivery O2 Flow Rate FiO2 07/01/19 17:30 59 18 164/87 (112) 100 07/01/19 17:00 54 18 168/88 (114) 100 07/01/19 16:52 53 20 35 07/01/19 16:30 98.5 54 20 161/90 (113) 100 07/01/19 16:00 53 18 152/86 (108) 100 07/01/19 16:00 35 07/01/19 16:00 53 07/01/19 16:00 Mechanical Ventilator 07/01/19 15:30 54 19 154/82 (106) 100 07/01/19 15:00 55 18 145/95 (112) 100 07/01/19 14:56 57 20 35 07/01/19 14:30 74 20 130/76 (94) 100 07/01/19 14:00 54 19 154/89 (110) 100 07/01/19 14:00 19 Mechanical Ventilator 35 07/01/19 13:30 54 19 158/86 (110) 100 07/01/19 13:00 56 19 150/100 (117) 100 07/01/19 13:00 19 Mechanical Ventilator 35 07/01/19 12:45 56 19 149/85 (106) 100 07/01/19 12:41 77 24 35 07/01/19 12:30 99.0 52 20 149/85 (106) 100 07/01/19 12:15 56 17 143/90 (107) 100 07/01/19 12:13 18 Mechanical Ventilator 35 07/01/19 12:00 35 07/01/19 12:00 Mechanical Ventilator 07/01/19 12:00 17 Mechanical Ventilator 35 07/01/19 12:00 62 07/01/19 12:00 56 17 148/76 (100) 100 07/01/19 11:45 59 18 139/81 (100) 100 07/01/19 11:30 56 18 121/71 (88) 100 07/01/19 11:15 58 18 131/79 (96) 100 07/01/19 11:00 18 Mechanical Ventilator 35 07/01/19 11:00 56 18 121/71 (88) 100 07/01/19 10:51 56 18 35 07/01/19 10:30 57 18 120/74 (89) 99 07/01/19 10:00 59 18 132/72 (92) 99 07/01/19 10:00 18 Mechanical Ventilator 35 07/01/19 09:30 60 18 118/76 (90) 100 07/01/19 09:12 59 07/01/19 09:00 18 Mechanical Ventilator 35 07/01/19 09:00 58 18 119/73 (88) 99 07/01/19 08:54 58 18 35 07/01/19 08:45 56 18 138/75 (96) 100 07/01/19 08:30 63 18 138/75 (96) 100 07/01/19 08:15 63 18 138/78 (98) 100 07/01/19 08:00 99.1 63 18 122/77 (92) 100 07/01/19 08:00 Mechanical Ventilator 07/01/19 08:00 18 Mechanical Ventilator 35 07/01/19 08:00 122/77 07/01/19 08:00 35 07/01/19 07:30 63 18 121/77 (92) 100 07/01/19 07:19 58 18 35 07/01/19 07:00 56 18 138/75 (96) 100 07/01/19 07:00 18 Mechanical Ventilator 35 07/01/19 07:00 138/75 07/01/19 06:30 60 19 134/78 (96) 100 07/01/19 06:00 18 Mechanical Ventilator 35 07/01/19 06:00 130/67 07/01/19 06:00 58 18 130/67 (88) 100 07/01/19 05:30 56 18 130/80 (97) 100 07/01/19 05:00 57 19 132/84 (100) 100 07/01/19 05:00 19 Mechanical Ventilator 35 07/01/19 05:00 132/84 07/01/19 04:54 57 19 35 07/01/19 04:30 56 17 125/81 (96) 100 07/01/19 04:00 Mechanical Ventilator 07/01/19 04:00 98.8 61 19 130/77 (94) 100 07/01/19 04:00 19 Mechanical Ventilator 35 07/01/19 04:00 130/77 07/01/19 04:00 35 07/01/19 03:48 57 07/01/19 03:45 58 18 130/83 (99) 100 07/01/19 03:30 57 20 139/80 (99) 100 07/01/19 03:15 57 18 133/76 (95) 100 07/01/19 03:00 54 18 134/79 (97) 100 07/01/19 03:00 18 Mechanical Ventilator 35 07/01/19 03:00 134/79 07/01/19 02:42 56 18 35 07/01/19 02:30 56 18 122/79 (93) 100 07/01/19 02:12 16 Mechanical Ventilator 35 07/01/19 02:00 117/76 07/01/19 02:00 58 18 117/76 (90) 99 07/01/19 01:30 59 18 113/71 (85) 99 07/01/19 01:17 59 18 35 07/01/19 01:00 64 18 103/69 (80) 97 07/01/19 01:00 18 Mechanical Ventilator 35 07/01/19 01:00 103/69 07/01/19 00:30 61 18 135/11 (52) 98 07/01/19 00:00 54 07/01/19 00:00 Mechanical Ventilator 07/01/19 00:00 18 Mechanical Ventilator 35 07/01/19 00:00 141/86 07/01/19 00:00 99.0 54 18 141/86 (104) 100 07/01/19 00:00 35 06/30/19 23:50 57 06/30/19 23:30 54 18 134/94 (107) 97 06/30/19 23:01 62 22 35 06/30/19 23:00 18 Mechanical Ventilator 35 06/30/19 23:00 126/95 06/30/19 23:00 54 18 126/95 (105) 100 06/30/19 22:30 55 18 135/81 (99) 98 06/30/19 22:00 18 Mechanical Ventilator 35 06/30/19 22:00 134/77 06/30/19 22:00 53 19 137/72 (93) 98 06/30/19 21:36 65 18 35 06/30/19 21:30 56 19 135/84 (101) 99 06/30/19 21:00 57 19 133/83 (100) 99 06/30/19 21:00 19 Mechanical Ventilator 35 06/30/19 21:00 133/83 06/30/19 20:35 56 06/30/19 20:30 57 19 118/73 (88) 97 06/30/19 20:00 Mechanical Ventilator 06/30/19 20:00 19 Mechanical Ventilator 35 06/30/19 20:00 100/72 06/30/19 20:00 60 06/30/19 20:00 35 06/30/19 20:00 99.0 60 19 100/72 (81) 99 06/30/19 19:30 60 20 112/81 (91) 100 06/30/19 19:16 61 19 35 06/30/19 19:00 58 18 132/81 (98) 98 06/30/19 19:00 18 Mechanical Ventilator 35 06/30/19 19:00 110/90 06/30/19 18:30 56 18 121/90 (100) 98 06/30/19 18:00 54 19 119/85 (96) 98 06/30/19 18:00 18 Mechanical Ventilator 35 06/30/19 18:00 121/90 Intake and Output 06/30/19 07/01/19 19:00 07:00 Intake Total 3478.550 ml 1885.75 ml Output Total 143 ml 3190 ml Balance 3335.550 ml -1304.25 ml Intake IV Total 2928.550 ml 1885.75 ml Blood Product 500 ml Other 50 ml Output Urine Total 143 ml 190 ml Hemodialysis UF 3000 ml Laboratory Tests Test 07/01/19 03:45 White Blood Count 14.3 K/UL (4.8-10.8) H Red Blood Count 2.90 M/UL (4.20-5.40) L Hemoglobin 9.1 G/DL (12.0-16.0) L Hematocrit 26.5 % (37.0-47.0) L Mean Corpuscular Volume 91 FL (80-99) Mean Corpuscular Hemoglobin 31.4 PG (27.0-31.0) H Mean Corpuscular Hemoglobin Concent 34.4 G/DL (32.0-36.0) Red Cell Distribution Width 14.2 % (11.6-14.8) Platelet Count 38 K/UL (150-450) L Mean Platelet Volume 12.8 FL (6.5-10.1) H Neutrophils (%) (Auto) % (45.0-75.0) Lymphocytes (%) (Auto) % (20.0-45.0) Monocytes (%) (Auto) % (1.0-10.0) Eosinophils (%) (Auto) % (0.0-3.0) Basophils (%) (Auto) % (0.0-2.0) Differential Total Cells Counted 100 Neutrophils % (Manual) 93 % (45-75) H Lymphocytes % (Manual) 5 % (20-45) L Monocytes % (Manual) 1 % (1-10) Eosinophils % (Manual) 0 % (0-3) Basophils % (Manual) 0 % (0-2) Band Neutrophils 1 % (0-8) Nucleated Red Blood Cells 1 /100 WBC Platelet Estimate Decreased L Platelet Morphology Normal Red Blood Cell Morphology Normal Sodium Level 134 MMOL/L (136-145) L Potassium Level 4.5 MMOL/L (3.5-5.1) Chloride Level 105 MMOL/L (98-107) Carbon Dioxide Level 18 MMOL/L (21-32) L Anion Gap 11 mmol/L (5-15) Blood Urea Nitrogen 41 mg/dL (7-18) H Creatinine 3.8 MG/DL (0.55-1.30) H Estimat Glomerular Filtration Rate 14.7 mL/min (>60) Glucose Level 133 MG/DL (74-106) H Calcium Level 6.4 MG/DL (8.5-10.1) L Phosphorus Level 3.8 MG/DL (2.5-4.9) Total Bilirubin 0.3 MG/DL (0.2-1.0) Aspartate Amino Transf (AST/SGOT) 756 U/L (15-37) H Alanine Aminotransferase (ALT/SGPT) 463 U/L (12-78) H Alkaline Phosphatase 48 U/L (46-116) Total Protein 4.7 G/DL (6.4-8.2) L Albumin 2.2 G/DL (3.4-5.0) L Globulin 2.5 g/dL Albumin/Globulin Ratio 0.9 (1.0-2.7) L Height (Feet): 5 Height (Inches): 4.00 Weight (Pounds): 177 Medications Current Medications Medications (Trade) Dose Ordered Sig/Dmitri Route PRN Reason Start Time Stop Time Status Last Admin Dose Admin Acetaminophen (Tylenol) 650 mg Q4H PRN RECTAL FEVER 06/29/19 11:01 07/29/19 11:00 Chlorhexidine Gluconate (Lynn-Hex 2%) 1 applic DAILY@2000 TOPIC 06/29/19 20:00 07/29/19 19:59 06/30/19 20:57 Dextrose (Dextrose 50%) 25 ml Q30M PRN IV Hypoglycemia 06/30/19 15:00 07/30/19 14:59 Dextrose (Dextrose 50%) 50 ml Q30M PRN IV Hypoglycemia 06/30/19 15:00 07/30/19 14:59 Dextrose/Sodium Chloride 1,000 ml @ 125 mls/hr Q8H IV 06/30/19 09:00 07/30/19 08:59 07/01/19 16:41 Diphenhydramine HCl (Benadryl) 25 mg Q6H PRN IVP Muscle Spasm 06/29/19 11:01 07/29/19 11:00 Epinephrine 1 mg/ Dextrose 250 ml @ 0 mls/hr Q24H IV 06/29/19 16:00 07/29/19 15:59 Epoetin Eric (Epoetin Eric(ESRD on dialysis)) 8,000 unit MON-MON-MON SUBQ 07/01/19 21:00 07/31/19 20:59 Famotidine (Pepcid I.v.) 20 mg Q12HR IVP 06/30/19 21:00 07/30/19 20:59 07/01/19 08:28 Fentanyl Citrate 2500 mcg/Sodium Chloride 250 ml @ 0 mls/hr Q24H IV 06/29/19 12:30 07/06/19 12:29 07/01/19 12:13 Hydromorphone HCl (Dilaudid) 0.5 mg Q3H PRN IVP Pain Score 1-3 06/29/19 11:02 07/06/19 11:01 Hydromorphone HCl (Dilaudid) 1 mg Q3H PRN IVP pain score 4-6 06/29/19 11:02 07/06/19 11:01 Hydromorphone HCl (Dilaudid) 2 mg Q3H PRN IVP pain score 7-10 06/29/19 11:02 07/06/19 11:01 Insulin Aspart (NovoLOG) BEFORE MEALS AND HS SUBQ 06/30/19 16:30 07/30/19 16:29 07/01/19 12:00 Lorazepam (Ativan 2mg/ml 1ml) 0.5 mg Q24HRS PRN IV Agitation 06/29/19 11:36 07/06/19 11:35 06/29/19 15:10 Methylprednisolone Sodium Succinate (Solu-MEDROL) 40 mg EVERY 8 HOURS IVP 06/30/19 22:00 07/29/19 13:59 07/01/19 15:18 Metoclopramide HCl (Reglan) 10 mg Q6H PRN IVP Nausea & Vomiting 06/29/19 11:01 07/29/19 11:00 Norepinephrine Bitartrate 8 mg/ Dextrose 508 ml @ 0 mls/hr Q24H IV 06/29/19 12:30 07/29/19 12:29 06/30/19 11:42 Ondansetron HCl (Zofran) 4 mg Q6H PRN IVP Nausea & Vomiting 06/29/19 11:01 07/29/19 11:00 Vasopressin 100 units/Sodium Chloride 100 ml @ 2.4 mls/hr Q24H IV 06/29/19 14:15 07/29/19 14:14 06/30/19 15:40 Assessment/Plan Assessment/Plan: Hematology Consultation REQ MD: Yamini Ray RFC: Anemia and thrombocytopenia, leukocytosis Chief Complaint: Dyspnea/Respdistress DOS: 07/01/19 ID 59y old female Pt rushed to ED from home presenting with swelling in the mouth/ throat and tongue. Pt unable to speak and having difficulty breathing, spitting up blood and saliva. Patient positive for cocaine. Emergent trach for tongue swelling. On 2 pressors for hypotension, Echo with normal LV function. Hemoglobin 12->6, s/p 3 units of blood and 2 unit of FFP. Given ffp, steriods, heme consulted given rapid plt drop, anemia Coded Allergies: No Known Allergies (Unverified , 06/29/19) Patient History Healthcare decision maker Resuscitation status Full Code Advanced Directive on File Review of Systems Constitutional: Reports: weakness Eye: Reports: no symptoms ENT: Reports: throat pain, throat swelling Respiratory: Reports: no symptoms Cardiovascular: Reports: no symptoms Gastrointestinal: Reports: no symptoms Genitourinary: Reports: no symptoms Musculoskeletal: Reports: no symptoms Skin: Reports: no symptoms Psychiatric: Reports: no symptoms Neurological: Reports: no symptoms Endocrine: Reports: no symptoms Hematologic/Lymphatic: Reports: no symptoms Physical Exam: Vitals: reviewed General Appearance: NAD HEENT: normocephalic, atraumatic ++ trach Neck: non-tender, normal alignment Respiratory/Chest: normal breath sounds bilaterally Cardiovascular/Chest: normal peripheral pulses, normal rate Abdomen: normal bowel sounds, soft, nontender Extremities: normal range of motion Labs: noted Imaging: noted A/R # Thrombocytopenia - potential causes multifactorial, evaluate liver and viral etiologies to begin, also could be related to underlying medications patient has received. --> Hep panel and HIV ordered --> US abd to evaluate for cirrhosis and hsm ordered --> DIC panel has been ordered --> Peripheral smear ordered to evaluate for blasts /schistocytes --> abx and other meds have been reviewed --> ok for ppx if plt >50k w/ either heparin or lovenox --> Transfuse if Plt < 20k and fever, or if Plt < 10k without fever --> plt trend 200-->87-->60-->38k # Anemia of chronic disease (or of iron deficiency) due to underlying chronic medical issues, multifactorial --> Anemia workup has been ordered, rule out gi bleed --> No evidence of hemolysis is noted, peripheral smear has been reviewed. --> Hgb goal >7. Transfuse prn. --> Epogen or iron at this time is not particularly indicated --> Medications have been reviewed --> low threshold for gi evaluation in case has occult + # Leukocytosis --> wbc trend 17-->15-->14k --> steriods for angioedema # Angioedeam --> ffp, steriods given --> s/p trach # Resp failure s/p trach # Severe Hypotension , Now off both pressors. # Hx of Hypertension # Cocaine abuse # ARF on HD now The timing of this note does not necessarily reflect the time of the patient was seen. GREATLY APPRECIATE CONSULTATION. Jordan Nguyen MD Jul 01, 2019 18:01
[2019-07-01 19:50] LABS: FERRITIN 1378 NG/ML (8-388)
[2019-07-01] MEDS: Dyna-Hex 2% Top Sol 2oz TOPIC SCH (19:59)
[2019-07-01 20:07] LABS: % IRON SATURATION 15 % (15-50); IRON 25 ug/dL (50-175); TOTAL IRON BINDING CAPACITY 170 ug/dL (250-450)
[2019-07-01] MEDS: Epoetin Alfa-EPBX(ESRD on dialysis)4000 units/ml vial SUBQ SCH (21:08)
--- NOTE | 2019-07-01 21:09 | General Progress Note ---
Assessment/Plan Status: stable Assessment/Plan: GI CONSULT ATSP for nutritional support Assessment - Angioedema, s/p emergency trach - dysphagia, but may pass swallow eval - Severe thrombocytopenia - HIV (+) - Drug abuse Recommendations - Will hold off on NGT/OGT - Swallow evaluation - Monitor platelets Will follow Thank you Elisabeth Sommers MD Subjective Allergies: Coded Allergies: No Known Allergies (Unverified , 06/29/19) Objective Last 24 Hour Vital Signs Date Time Temp Pulse Resp B/P (MAP) Pulse Ox O2 Delivery O2 Flow Rate FiO2 07/01/19 19:00 20 Mechanical Ventilator 35 07/01/19 19:00 60 20 160/91 (114) 100 07/01/19 18:57 58 20 35 07/01/19 18:30 67 22 166/89 (114) 98 07/01/19 18:00 53 18 154/94 (114) 100 07/01/19 18:00 18 Mechanical Ventilator 35 07/01/19 17:30 59 18 164/87 (112) 100 07/01/19 17:00 18 Mechanical Ventilator 35 07/01/19 17:00 54 18 168/88 (114) 100 07/01/19 16:52 53 20 35 07/01/19 16:30 98.5 54 20 161/90 (113) 100 07/01/19 16:00 53 18 152/86 (108) 100 07/01/19 16:00 35 07/01/19 16:00 53 07/01/19 16:00 18 Mechanical Ventilator 35 07/01/19 16:00 Mechanical Ventilator 07/01/19 15:30 54 19 154/82 (106) 100 07/01/19 15:00 55 18 145/95 (112) 100 07/01/19 15:00 18 Mechanical Ventilator 35 07/01/19 14:56 57 20 35 07/01/19 14:30 74 20 130/76 (94) 100 07/01/19 14:00 54 19 154/89 (110) 100 07/01/19 14:00 19 Mechanical Ventilator 35 07/01/19 13:30 54 19 158/86 (110) 100 07/01/19 13:00 56 19 150/100 (117) 100 07/01/19 13:00 19 Mechanical Ventilator 35 07/01/19 12:45 56 19 149/85 (106) 100 07/01/19 12:41 77 24 35 07/01/19 12:30 99.0 52 20 149/85 (106) 100 07/01/19 12:15 56 17 143/90 (107) 100 07/01/19 12:13 18 Mechanical Ventilator 35 07/01/19 12:00 35 07/01/19 12:00 Mechanical Ventilator 07/01/19 12:00 17 Mechanical Ventilator 35 07/01/19 12:00 62 07/01/19 12:00 56 17 148/76 (100) 100 07/01/19 11:45 59 18 139/81 (100) 100 07/01/19 11:30 56 18 121/71 (88) 100 07/01/19 11:15 58 18 131/79 (96) 100 07/01/19 11:00 18 Mechanical Ventilator 35 07/01/19 11:00 56 18 121/71 (88) 100 07/01/19 10:51 56 18 35 07/01/19 10:30 57 18 120/74 (89) 99 07/01/19 10:00 59 18 132/72 (92) 99 07/01/19 10:00 18 Mechanical Ventilator 35 07/01/19 09:30 60 18 118/76 (90) 100 07/01/19 09:12 59 07/01/19 09:00 18 Mechanical Ventilator 35 07/01/19 09:00 58 18 119/73 (88) 99 07/01/19 08:54 58 18 35 07/01/19 08:45 56 18 138/75 (96) 100 07/01/19 08:30 63 18 138/75 (96) 100 07/01/19 08:15 63 18 138/78 (98) 100 07/01/19 08:00 99.1 63 18 122/77 (92) 100 07/01/19 08:00 Mechanical Ventilator 07/01/19 08:00 18 Mechanical Ventilator 35 07/01/19 08:00 122/77 07/01/19 08:00 35 07/01/19 07:30 63 18 121/77 (92) 100 07/01/19 07:19 58 18 35 07/01/19 07:00 56 18 138/75 (96) 100 07/01/19 07:00 18 Mechanical Ventilator 35 07/01/19 07:00 138/75 8/19/19 06:30 60 19 134/78 (96) 100 07/01/19 06:00 18 Mechanical Ventilator 35 07/01/19 06:00 130/67 07/01/19 06:00 58 18 130/67 (88) 100 07/01/19 05:30 56 18 130/80 (97) 100 07/01/19 05:00 57 19 132/84 (100) 100 07/01/19 05:00 19 Mechanical Ventilator 35 07/01/19 05:00 132/84 07/01/19 04:54 57 19 35 07/01/19 04:30 56 17 125/81 (96) 100 07/01/19 04:00 Mechanical Ventilator 07/01/19 04:00 98.8 61 19 130/77 (94) 100 07/01/19 04:00 19 Mechanical Ventilator 35 07/01/19 04:00 130/77 07/01/19 04:00 35 07/01/19 03:48 57 07/01/19 03:45 58 18 130/83 (99) 100 07/01/19 03:30 57 20 139/80 (99) 100 07/01/19 03:15 57 18 133/76 (95) 100 07/01/19 03:00 54 18 134/79 (97) 100 07/01/19 03:00 18 Mechanical Ventilator 35 07/01/19 03:00 134/79 07/01/19 02:42 56 18 35 07/01/19 02:30 56 18 122/79 (93) 100 07/01/19 02:12 16 Mechanical Ventilator 35 07/01/19 02:00 117/76 07/01/19 02:00 58 18 117/76 (90) 99 07/01/19 01:30 59 18 113/71 (85) 99 07/01/19 01:17 59 18 35 07/01/19 01:00 64 18 103/69 (80) 97 07/01/19 01:00 18 Mechanical Ventilator 35 07/01/19 01:00 103/69 07/01/19 00:30 61 18 135/11 (52) 98 07/01/19 00:00 54 07/01/19 00:00 Mechanical Ventilator 07/01/19 00:00 18 Mechanical Ventilator 35 8/19/19 00:00 141/86 07/01/19 00:00 99.0 54 18 141/86 (104) 100 07/01/19 00:00 35 06/30/19 23:50 57 06/30/19 23:30 54 18 134/94 (107) 97 06/30/19 23:01 62 22 35 06/30/19 23:00 18 Mechanical Ventilator 35 06/30/19 23:00 126/95 06/30/19 23:00 54 18 126/95 (105) 100 06/30/19 22:30 55 18 135/81 (99) 98 06/30/19 22:00 18 Mechanical Ventilator 35 06/30/19 22:00 134/77 06/30/19 22:00 53 19 137/72 (93) 98 06/30/19 21:36 65 18 35 06/30/19 21:30 56 19 135/84 (101) 99 Intake and Output 06/30/19 07/01/19 19:00 07:00 Intake Total 3478.550 ml 1885.75 ml Output Total 143 ml 3190 ml Balance 3335.550 ml -1304.25 ml Intake IV Total 2928.550 ml 1885.75 ml Blood Product 500 ml Other 50 ml Output Urine Total 143 ml 190 ml Hemodialysis UF 3000 ml Laboratory Tests 07/01/19 00:00: HIV-1 Antibody [Pending], HIV-2 Antibody [Pending] 07/01/19 03:45: White Blood Count 14.3H, Red Blood Count 2.90L, Hemoglobin 9.1L, Hematocrit 26.5L, Mean Corpuscular Volume 91, Mean Corpuscular Hemoglobin 31.4H, Mean Corpuscular Hemoglobin Concent 34.4, Red Cell Distribution Width 14.2, Platelet Count 38L, Mean Platelet Volume 12.8H, Neutrophils (%) (Auto) , Lymphocytes (%) (Auto) , Monocytes (%) (Auto) , Eosinophils (%) (Auto) , Basophils (%) (Auto) , Differential Total Cells Counted 100, Neutrophils % (Manual) 93H, Lymphocytes % (Manual) 5L, Monocytes % (Manual) 1, Eosinophils % (Manual) 0, Basophils % ( Manual) 0, Band Neutrophils 1, Nucleated Red Blood Cells 1, Platelet Estimate DecreasedL, Platelet Morphology Normal, Red Blood Cell Morphology Normal, Reticulocyte Count 1.6, Haptoglobin [Pending], Sodium Level 134L, Potassium Level 4.5, Chloride Level 105, Carbon Dioxide Level 18L, Anion Gap 11, Blood Urea Nitrogen 41H, Creatinine 3.8H, Estimat Glomerular Filtration Rate 14.7, Glucose Level 133H, Calcium Level 6.4L, Phosphorus Level 3.8, Iron Level 25L, Total Iron Binding Capacity 170L, Percent Iron Saturation 15, Unsaturated Iron Binding 145, Ferritin 1378H, Total Bilirubin 0.3, Aspartate Amino Transf (AST/ SGOT) 756H, Alanine Aminotransferase (ALT/SGPT) 463H, Alkaline Phosphatase 48, Total Protein 4.7L, Albumin 2.2L, Globulin 2.5, Albumin/Globulin Ratio 0.9L, Vitamin B12 Level 1705H, Thyroid Stimulating Hormone (TSH) 0.825, Hepatitis A IgM Antibody [Pending], Hepatitis B Surface Antigen [Pending], Hepatitis B Core IgM Antibody [Pending], Hepatitis C Antibody [Pending], HIV (1&2) Antibody Rapid Preliminary positiveH Height (Feet): 5 Height (Inches): 4.00 Weight (Pounds): 177 Elisabeth Sommers MD Jul 01, 2019 21:09
--- NOTE | 2019-07-01 23:00 | Consultation ---
DATE OF CONSULTATION: 07/01/2019 CHIEF COMPLAINT: I was asked to see this patient by Dr. Radames Ray for nutritional support. HISTORY OF PRESENT ILLNESS: The patient is a 59-year-old woman who presented to the emergency room with angioedema presumed due to allergic reaction. She had a swollen tongue and neck and had to undergo emergency tracheostomy for airway support. She now is awake and more stable. However she is unable to eat and therefore this consultation was generated for nutritional support. The patient also has very severe thrombocytopenia. HIV test today also came back positive on a preliminary basis. The patient is awake and able to interact clearly with the team. She also appears to have normal head and neck and jaw movements. PAST MEDICAL HISTORY: History of angioedema, history of hypertension, history of cocaine use, presumed HIV-positive based on today's labs. FAMILY HISTORY: Noncontributory. SOCIAL HISTORY: The patient has cocaine use and she is cocaine positive on her toxicology screen. REVIEW OF SYSTEMS: Unobtainable. MEDICATIONS: See chart list for details. PHYSICAL EXAMINATION: GENERAL: The patient is well-developed and mildly obese woman seen in the ICU with a tracheostomy. HEENT: Normocephalic and atraumatic. NECK: Tracheostomy. CHEST: Reveals scattered rhonchi. CARDIOVASCULAR: Regular rate. ABDOMEN: Soft. EXTREMITIES: No edema. LABORATORY DATA: Noted. ASSESSMENT: This patient is unable to eat by mouth due to recent tracheostomy. However she is awake and alert and cooperative and therefore she may pass the swallow test. Given her very low platelet count, I will hold off on nasogastric or orogastric tube placement until swallow study is done. If she she passes the swallow study, then oral diet can be given. If not then, we will continue to re-evaluate for temporary enteric feeding tube placement until she improves. RECOMMENDATIONS: Per above discussion and per orders written in the chart. Thank you for asking me to participate in care this patient. Elisabeth Sommers M.D. DR: An JOB#: [id number] CC:
[2019-07-02] VITALS (48 sets, daily range): BP systolic 133–176; BP diastolic 63–98
[2019-07-02] MEDS: D5 1/2NS 1,000 ML IV SCH ×3 (00:58→16:29)
[2019-07-02] MEDS: fentaNYL Citrate 2,500 MCG in NS 200 ML IV SCH ×2 (00:59→13:11)
[2019-07-02 04:55] LABS: MEAN CORPUSCULAR VOLUME 90 FL (80-99); PLATELET COUNT 50 K/UL (150-450); RED BLOOD COUNT 2.88 M/UL (4.20-5.40); WHITE BLOOD COUNT 16.1 K/UL (4.8-10.8)
[2019-07-02 05:09] LABS: ANION GAP 11 mmol/L (5-15); BLOOD UREA NITROGEN 44 mg/dL (7-18); CALCIUM 7.6 MG/DL (8.5-10.1); CARBON DIOXIDE 19 MMOL/L (21-32); CHLORIDE 109 MMOL/L (98-107); CREATININE 3.5 MG/DL (0.55-1.30); POTASSIUM 3.9 MMOL/L (3.5-5.1); SODIUM 139 MMOL/L (136-145)
[2019-07-02 05:58] LABS: CREATINE KINASE 1218 U/L (26-308)
[2019-07-02] MEDS: Solu-MEDROL 40mg Inj IVP SCH ×3 (06:01→21:39)
[2019-07-02] MEDS: NovoLOG Insulin Flexpen SUBQ SCH ×4 (06:02→21:24)
--- NOTE | 2019-07-02 10:00 | Cardiology Report ---
APPROVED REPORT EXAM: Two-dimensional and M-mode echocardiogram with Doppler and color Doppler. INDICATION Left ventricular function Technically difficult and limited study due to poor acoustic windows. Study quality precludes accurate assessment of regional wall motion. M-mode measurements of left ventricle not obtainable due to cardiac position (angle). Normal left ventricular chamber size, systolic function and wall motion , the posterior and inferior wall were not adequately visualised Left ventricular ejection fraction estimated to be 60-65 %. Mild left ventricular hypertrophy. Anterior Echo-free space, may be due to pericardial fat or effusion. All other cardiac chamber sizes are within normal limits. Focal aortic valve thickening , opening is not visualized Thickened mitral valve leaflets with normal excursion. Mild mitral annulus and aortic root calcification. Pulmonic valve not visualized. Normal tricuspid valve structure. IVC is normal in size with physiological collapse. A color flow and spectral Doppler study was performed and revealed: No aortic regurgitation. Peak aortic / LVOT valve gradient of 18 mmHg and a mean of 7 mmHg. Pressure gradient may be elevated due to hyperdynamic systolic function. Mild mitral regurgitation. Mitral diastolic velocities suggest mild left ventricular diastolic dysfunction (Grade I). Trace tricuspid regurgitation. Tricuspid systolic velocities suggests peak right ventricular systolic pressure of 28 mmHg.
--- NOTE | 2019-07-02 11:11 | Cardiology Report ---
APPROVED REPORT EKG Measurement Heart [id number] Sinus tachycardia Otherwise normal ECG
--- NOTE | 2019-07-02 11:14 | Cardiology Report ---
APPROVED REPORT EKG Measurement Heart [id number] Sinus tachycardia Nonspecific T wave abnormality Abnormal ECG
--- NOTE | 2019-07-02 12:07 | General Progress Note ---
Assessment/Plan Status: stable, progressing Assessment/Plan: Hemodialysis 07/02 and 07/03. Repeat ABG today. CBC, CMP tomorrow. We will continue to monitor and evaluate need and time for hemodialysis. Subjective Constitutional: Reports: no symptoms HEENT: Reports: no symptoms Cardiovascular: Reports: no symptoms Respiratory: Reports: other Gastrointestinal/Abdominal: Reports: no symptoms Genitourinary: Reports: no symptoms Neurologic/Psychiatric: Reports: no symptoms Endocrine: Reports: no symptoms Hematologic/Lymphatic: Reports: no symptoms Allergies: Coded Allergies: No Known Allergies (Unverified , 06/29/19) Subjective The patient is able to nod yes or no/ pt on a trach/vent Objective Last 24 Hour Vital Signs Date Time Temp Pulse Resp B/P (MAP) Pulse Ox O2 Delivery O2 Flow Rate FiO2 07/02/19 11:37 135/76 07/02/19 11:30 55 20 133/77 (95) 100 07/02/19 11:00 56 18 135/76 (95) 100 07/02/19 10:46 57 19 35 07/02/19 10:30 55 18 152/78 (102) 99 07/02/19 10:00 56 22 159/63 (95) 100 07/02/19 09:30 56 22 157/85 (109) 100 07/02/19 09:01 100 07/02/19 09:00 56 22 35 07/02/19 09:00 54 20 167/83 (111) 100 07/02/19 08:30 98.3 55 18 157/85 (109) 100 07/02/19 08:00 Mechanical Ventilator 07/02/19 08:00 98.3 53 18 164/86 (112) 100 07/02/19 08:00 35 07/02/19 08:00 54 07/02/19 07:30 62 20 173/67 (102) 100 07/02/19 07:29 56 19 35 35 07/02/19 07:00 16 Mechanical Ventilator 30 07/02/19 07:00 55 20 161/82 (108) 100 07/02/19 06:30 54 20 151/82 (105) 100 07/02/19 06:00 54 18 161/80 (107) 100 07/02/19 06:00 18 Mechanical Ventilator 30 07/02/19 05:30 54 18 152/80 (104) 100 07/02/19 05:00 20 Mechanical Ventilator 35 07/02/19 05:00 78 20 35 07/02/19 05:00 54 21 137/82 (100) 100 07/02/19 04:30 68 21 151/83 (105) 100 07/02/19 04:00 Mechanical Ventilator 07/02/19 04:00 98.4 68 21 151/83 (105) 100 07/02/19 04:00 35 07/02/19 04:00 20 Mechanical Ventilator 35 07/02/19 04:00 68 07/02/19 03:30 93 22 160/80 (106) 100 07/02/19 03:00 59 20 147/78 (101) 100 07/02/19 03:00 18 Mechanical Ventilator 35 07/02/19 02:48 60 20 35 07/02/19 02:30 59 19 142/79 (100) 100 07/02/19 02:00 64 19 158/84 (108) 100 07/02/19 02:00 18 Mechanical Ventilator 35 07/02/19 01:30 57 19 158/85 (109) 100 07/02/19 01:00 54 19 160/85 (110) 100 07/02/19 00:59 20 Mechanical Ventilator 35 07/02/19 00:50 63 18 35 07/02/19 00:30 55 19 154/85 (108) 100 07/02/19 00:00 Mechanical Ventilator 07/02/19 00:00 55 07/02/19 00:00 98.2 56 19 154/81 (105) 100 07/02/19 00:00 18 Mechanical Ventilator 35 07/02/19 00:00 35 07/01/19 23:30 56 19 158/85 (109) 100 07/01/19 23:00 62 18 145/88 (107) 100 07/01/19 23:00 18 Mechanical Ventilator 35 07/01/19 22:30 62 18 158/85 (109) 100 07/01/19 22:30 68 20 35 07/01/19 22:00 62 18 163/87 (112) 100 07/01/19 22:00 18 Mechanical Ventilator 35 07/01/19 21:30 64 18 160/88 (112) 100 07/01/19 21:00 18 Mechanical Ventilator 35 07/01/19 21:00 64 18 161/88 (112) 100 07/01/19 20:45 70 20 35 07/01/19 20:30 62 18 154/87 (109) 100 07/01/19 20:00 35 07/01/19 20:00 55 07/01/19 20:00 Mechanical Ventilator 07/01/19 20:00 98.4 55 18 154/55 (88) 100 07/01/19 20:00 18 Mechanical Ventilator 35 07/01/19 19:30 56 19 158/84 (108) 100 07/01/19 19:00 20 Mechanical Ventilator 35 07/01/19 19:00 60 20 160/91 (114) 100 07/01/19 18:57 58 20 35 07/01/19 18:30 67 22 166/89 (114) 98 07/01/19 18:00 53 18 154/94 (114) 100 07/01/19 18:00 18 Mechanical Ventilator 35 07/01/19 17:30 59 18 164/87 (112) 100 07/01/19 17:00 18 Mechanical Ventilator 35 07/01/19 17:00 54 18 168/88 (114) 100 07/01/19 16:52 53 20 35 07/01/19 16:30 98.5 54 20 161/90 (113) 100 07/01/19 16:00 53 18 152/86 (108) 100 07/01/19 16:00 35 07/01/19 16:00 53 07/01/19 16:00 18 Mechanical Ventilator 35 07/01/19 16:00 Mechanical Ventilator 07/01/19 15:30 54 19 154/82 (106) 100 07/01/19 15:00 55 18 145/95 (112) 100 07/01/19 15:00 18 Mechanical Ventilator 35 07/01/19 14:56 57 20 35 07/01/19 14:30 74 20 130/76 (94) 100 07/01/19 14:00 54 19 154/89 (110) 100 07/01/19 14:00 19 Mechanical Ventilator 35 07/01/19 13:30 54 19 158/86 (110) 100 07/01/19 13:00 56 19 150/100 (117) 100 07/01/19 13:00 19 Mechanical Ventilator 35 07/01/19 12:45 56 19 149/85 (106) 100 07/01/19 12:41 77 24 35 07/01/19 12:30 99.0 52 20 149/85 (106) 100 07/01/19 12:15 56 17 143/90 (107) 100 07/01/19 12:13 18 Mechanical Ventilator 35 07/01/19 12:00 35 07/01/19 12:00 Mechanical Ventilator 07/01/19 12:00 17 Mechanical Ventilator 35 07/01/19 12:00 62 07/01/19 12:00 56 17 148/76 (100) 100 Intake and Output 07/01/19 07/02/19 19:00 07:00 Intake Total 1769.35 ml 970 ml Output Total 755 ml 1360 ml Balance 1014.35 ml -390 ml Intake IV Total 1769.35 ml 970 ml Output Urine Total 755 ml 1360 ml Laboratory Tests 07/02/19 02:32: White Blood Count 16.1H, Red Blood Count 2.88L, Hemoglobin 9.0L, Hematocrit 26.0L, Mean Corpuscular Volume 90, Mean Corpuscular Hemoglobin 31.3H, Mean Corpuscular Hemoglobin Concent 34.6, Red Cell Distribution Width 14.0, Platelet Count 50L, Mean Platelet Volume 11.4H, Neutrophils (%) (Auto) , Lymphocytes (%) (Auto) , Monocytes (%) (Auto) , Eosinophils (%) (Auto) , Basophils (%) (Auto) , Differential Total Cells Counted 100, Neutrophils % (Manual) 94H, Lymphocytes % (Manual) 4L, Monocytes % (Manual) 2, Eosinophils % (Manual) 0, Basophils % ( Manual) 0, Band Neutrophils 0, Platelet Estimate DecreasedL, Platelet Morphology Normal, Polychromasia 1+, Hypochromasia 1+, Prothrombin Time 10.5, Prothromb Time International Ratio 1.0, Fibrinogen 309, Sodium Level 139, Potassium Level 3.9, Chloride Level 109H, Carbon Dioxide Level 19L, Anion Gap 11 , Blood Urea Nitrogen 44H, Creatinine 3.5H, Estimat Glomerular Filtration Rate 16.2, Glucose Level 139H, Calcium Level 7.6L, Magnesium Level 1.5L, Total Creatine Kinase 1218H Height (Feet): 5 Height (Inches): 4.00 Weight (Pounds): 172 General Appearance: no apparent distress, alert EENT: PERRL/EOMI Cardiovascular: normal peripheral pulses, normal rate, regular rhythm Abdomen: normal bowel sounds, non tender, soft, no organomegaly Extremities: normal range of motion, non-tender Edema: no edema noted Arm (L), no edema noted Arm (R), no edema noted Leg (L), no edema noted Leg (R) Neurologic: alert, oriented x 3, responsive, normal mood/affect Skin: normal pigmentation, warm/dry Lymphatic: normal anterior cervical (L), normal anterior cervical (R), normal posterior cervical (L), normal posterior cervical (R), normal submandibular (L) , normal submandibular (R), normal supraclavicular (L), normal supraclavicular ( R) Objective The patient has a trach/vent. Tracheostomy site appears healthy/no signs of infection. She has a patel with approx 600cc clear urine. Sharee Alvarez N.P. Jul 02, 2019 12:07
[2019-07-02] MEDS: Magnesium Sulfate 1gm/100ml IVPB SCH ×4 (12:59→15:50)
[2019-07-02] MEDS: Vasopressin 100 UNITS in NS 95 ML IV SCH (13:12)
[2019-07-02] MEDS: EPINEPHrine 1mg/1ml Amp 1 MG in D5W 249 ML IV SCH (14:00)
--- NOTE | 2019-07-02 14:21 | Hematology/Onc Progress Note ---
Assessment/Plan Assessment/Plan A/R # Thrombocytopenia - potential causes multifactorial, evaluate liver and viral etiologies to begin, also could be related to underlying medications patient has received. HIV is ++ --> Hep panel and HIV is ++ --> US abd to evaluate for cirrhosis and hsm ordered --> DIC panel has alfredo reviewed --> Peripheral smear ordered to evaluate for blasts /schistocytes and none noted --> abx and other meds have been reviewed --> ok for ppx if plt >50k w/ either heparin or lovenox --> Transfuse if Plt < 20k and fever, or if Plt < 10k without fever --> plt trend 200-->87-->60-->38k-> 50 -> [id number] ordered --> consider id eval for hiv # Anemia of chronic disease due to underlying chronic medical issues, multifactorial --> Anemia workup has been ordered, rule out gi bleed --> No evidence of hemolysis is noted, peripheral smear has been reviewed. --> Hgb goal >7. Transfuse prn. --> Epogen or iron at this time is not particularly indicated --> Medications have been reviewed --> low threshold for gi evaluation in case has occult + --> hgb trend 8.7--> 9 # Leukocytosis --> wbc trend 17-->15-->14k->16 --> steriods for angioedema # Angioedeam --> ffp, steriods given --> s/p trach # Resp failure s/p trach --> to vent # Severe Hypotension , Now off both pressors. # Hx of Hypertension # Cocaine abuse # ARF on HD now --> 07/02, 07/03 hd The timing of this note does not necessarily reflect the time of the patient was seen. GREATLY APPRECIATE CONSULTATION. Subjective HEENT: Denies: no symptoms, eye pain, blurred vision, tearing, double vision, ear pain, ear discharge, nose pain, nose congestion, throat pain, throat swelling, mouth pain, mouth swelling, other Cardiovascular: Denies: no symptoms, chest pain, edema, irregular heart rate, lightheadedness, palpitations, syncope, other Respiratory: Denies: no symptoms, cough, shortness of breath, SOB with excertion, SOB at rest, sputum, wheezing, other Gastrointestinal/Abdominal: Denies: no symptoms, abdomen distended, abdominal pain, black stools, tarry stools, blood in stool, constipated, diarrhea, difficulty swallowing, nausea, poor appetite, poor fluid intake, rectal bleeding , vomiting, other Genitourinary: Denies: no symptoms, burning, discharge, frequency, flank pain, hematuria, incontinence, pain, urgency, other Neurologic/Psychiatric: Denies: no symptoms, anxiety, depressed, emotional problems, headache, numbness, paresthesia, pre-existing deficit, seizure, tingling, tremors, weakness, other Allergies: Coded Allergies: No Known Allergies (Unverified , 06/29/19) Subjective 07/02: remains in the icu, onpressors and epogen, hgb stable Objective Objective Current Medications Medications (Trade) Dose Ordered Sig/Dmitri Route PRN Reason Start Time Stop Time Status Last Admin Dose Admin Acetaminophen (Tylenol) 650 mg Q4H PRN RECTAL FEVER 06/29/19 11:01 07/29/19 11:00 Chlorhexidine Gluconate (Lynn-Hex 2%) 1 applic DAILY@2000 TOPIC 06/29/19 20:00 07/29/19 19:59 07/01/19 19:59 Dextrose (Dextrose 50%) 25 ml Q30M PRN IV Hypoglycemia 06/30/19 15:00 07/30/19 14:59 Dextrose (Dextrose 50%) 50 ml Q30M PRN IV Hypoglycemia 06/30/19 15:00 07/30/19 14:59 Dextrose/Sodium Chloride 1,000 ml @ 125 mls/hr Q8H IV 06/30/19 09:00 07/30/19 08:59 07/02/19 08:26 Diphenhydramine HCl (Benadryl) 25 mg Q6H PRN IVP Muscle Spasm 06/29/19 11:01 07/29/19 11:00 Epinephrine 1 mg/ Dextrose 250 ml @ 0 mls/hr Q24H IV 06/29/19 16:00 07/29/19 15:59 Epoetin Eric (Epoetin Eric(ESRD on dialysis)) 8,000 unit MON-MON-MON SUBQ 07/01/19 21:00 07/31/19 20:59 07/01/19 21:08 Famotidine (Pepcid I.v.) 20 mg Q12HR IVP 06/30/19 21:00 07/30/19 20:59 07/02/19 08:25 Fentanyl Citrate 2500 mcg/Sodium Chloride 250 ml @ 0 mls/hr Q24H IV 06/29/19 12:30 07/06/19 12:29 07/02/19 13:11 Hydromorphone HCl (Dilaudid) 0.5 mg Q3H PRN IVP Pain Score 1-3 06/29/19 11:02 07/06/19 11:01 Hydromorphone HCl (Dilaudid) 1 mg Q3H PRN IVP pain score 4-6 06/29/19 11:02 07/06/19 11:01 Hydromorphone HCl (Dilaudid) 2 mg Q3H PRN IVP pain score 7-10 06/29/19 11:02 07/06/19 11:01 Insulin Aspart (NovoLOG) BEFORE MEALS AND HS SUBQ 06/30/19 16:30 07/30/19 16:29 07/02/19 06:02 Lorazepam (Ativan 2mg/ml 1ml) 0.5 mg Q24HRS PRN IV Agitation 06/29/19 11:36 07/06/19 11:35 06/29/19 15:10 Magnesium Sulfate 100 ml @ 100 mls/hr Q1H IVPB 07/02/19 12:00 07/02/19 15:59 07/02/19 14:13 Methylprednisolone Sodium Succinate (Solu-MEDROL) 40 mg EVERY 8 HOURS IVP 06/30/19 22:00 07/29/19 13:59 07/02/19 13:11 Metoclopramide HCl (Reglan) 10 mg Q6H PRN IVP Nausea & Vomiting 06/29/19 11:01 07/29/19 11:00 Norepinephrine Bitartrate 8 mg/ Dextrose 508 ml @ 0 mls/hr Q24H IV 06/29/19 12:30 07/29/19 12:29 06/30/19 11:42 Ondansetron HCl (Zofran) 4 mg Q6H PRN IVP Nausea & Vomiting 06/29/19 11:01 07/29/19 11:00 Vasopressin 100 units/Sodium Chloride 100 ml @ 2.4 mls/hr Q24H IV 06/29/19 14:15 07/29/19 14:14 06/30/19 15:40 Last 24 Hour Vital Signs Date Time Temp Pulse Resp B/P (MAP) Pulse Ox O2 Delivery O2 Flow Rate FiO2 07/02/19 14:00 52 18 151/80 (103) 100 07/02/19 13:30 50 20 151/80 (103) 100 07/02/19 13:27 49 19 35 07/02/19 13:11 19 Mechanical Ventilator 07/02/19 13:00 51 18 153/83 (106) 100 07/02/19 12:30 52 19 158/81 (106) 100 07/02/19 12:00 35 07/02/19 12:00 54 07/02/19 12:00 Mechanical Ventilator 07/02/19 12:00 97.7 52 20 159/83 (108) 100 07/02/19 11:37 135/76 07/02/19 11:30 55 20 133/77 (95) 100 07/02/19 11:00 56 18 135/76 (95) 100 07/02/19 10:46 57 19 35 07/02/19 10:30 55 18 152/78 (102) 99 07/02/19 10:00 56 22 159/63 (95) 100 07/02/19 09:30 56 22 157/85 (109) 100 07/02/19 09:01 100 07/02/19 09:00 56 22 35 07/02/19 09:00 54 20 167/83 (111) 100 07/02/19 08:30 98.3 55 18 157/85 (109) 100 07/02/19 08:00 Mechanical Ventilator 07/02/19 08:00 98.3 53 18 164/86 (112) 100 07/02/19 08:00 35 07/02/19 08:00 54 07/02/19 07:30 62 20 173/67 (102) 100 07/02/19 07:29 56 19 35 35 07/02/19 07:00 16 Mechanical Ventilator 30 07/02/19 07:00 55 20 161/82 (108) 100 07/02/19 06:30 54 20 151/82 (105) 100 07/02/19 06:00 54 18 161/80 (107) 100 07/02/19 06:00 18 Mechanical Ventilator 30 07/02/19 05:30 54 18 152/80 (104) 100 07/02/19 05:00 20 Mechanical Ventilator 35 07/02/19 05:00 78 20 35 07/02/19 05:00 54 21 137/82 (100) 100 07/02/19 04:30 68 21 151/83 (105) 100 07/02/19 04:00 Mechanical Ventilator 07/02/19 04:00 98.4 68 21 151/83 (105) 100 07/02/19 04:00 35 07/02/19 04:00 20 Mechanical Ventilator 35 07/02/19 04:00 68 07/02/19 03:30 93 22 160/80 (106) 100 07/02/19 03:00 59 20 147/78 (101) 100 07/02/19 03:00 18 Mechanical Ventilator 35 07/02/19 02:48 60 20 35 07/02/19 02:30 59 19 142/79 (100) 100 07/02/19 02:00 64 19 158/84 (108) 100 07/02/19 02:00 18 Mechanical Ventilator 35 07/02/19 01:30 57 19 158/85 (109) 100 07/02/19 01:00 54 19 160/85 (110) 100 07/02/19 00:59 20 Mechanical Ventilator 35 07/02/19 00:50 63 18 35 07/02/19 00:30 55 19 154/85 (108) 100 07/02/19 00:00 Mechanical Ventilator 07/02/19 00:00 55 07/02/19 00:00 98.2 56 19 154/81 (105) 100 07/02/19 00:00 18 Mechanical Ventilator 35 07/02/19 00:00 35 07/01/19 23:30 56 19 158/85 (109) 100 07/01/19 23:00 62 18 145/88 (107) 100 07/01/19 23:00 18 Mechanical Ventilator 35 07/01/19 22:30 62 18 158/85 (109) 100 07/01/19 22:30 68 20 35 07/01/19 22:00 62 18 163/87 (112) 100 07/01/19 22:00 18 Mechanical Ventilator 35 07/01/19 21:30 64 18 160/88 (112) 100 07/01/19 21:00 18 Mechanical Ventilator 35 07/01/19 21:00 64 18 161/88 (112) 100 07/01/19 20:45 70 20 35 07/01/19 20:30 62 18 154/87 (109) 100 07/01/19 20:00 35 07/01/19 20:00 55 07/01/19 20:00 Mechanical Ventilator 07/01/19 20:00 98.4 55 18 154/55 (88) 100 07/01/19 20:00 18 Mechanical Ventilator 35 07/01/19 19:30 56 19 158/84 (108) 100 07/01/19 19:00 20 Mechanical Ventilator 35 07/01/19 19:00 60 20 160/91 (114) 100 07/01/19 18:57 58 20 35 07/01/19 18:30 67 22 166/89 (114) 98 07/01/19 18:00 53 18 154/94 (114) 100 07/01/19 18:00 18 Mechanical Ventilator 35 07/01/19 17:30 59 18 164/87 (112) 100 07/01/19 17:00 18 Mechanical Ventilator 35 07/01/19 17:00 54 18 168/88 (114) 100 07/01/19 16:52 53 20 35 07/01/19 16:30 98.5 54 20 161/90 (113) 100 07/01/19 16:00 53 18 152/86 (108) 100 07/01/19 16:00 35 07/01/19 16:00 53 07/01/19 16:00 18 Mechanical Ventilator 35 07/01/19 16:00 Mechanical Ventilator 07/01/19 15:30 54 19 154/82 (106) 100 07/01/19 15:00 55 18 145/95 (112) 100 07/01/19 15:00 18 Mechanical Ventilator 35 07/01/19 14:56 57 20 35 07/01/19 14:30 74 20 130/76 (94) 100 07/01/19 14:00 54 19 154/89 (110) 100 07/01/19 14:00 19 Mechanical Ventilator 35 07/01/19 13:30 54 19 158/86 (110) 100 07/01/19 13:00 56 19 150/100 (117) 100 07/01/19 13:00 19 Mechanical Ventilator 35 07/01/19 12:45 56 19 149/85 (106) 100 07/01/19 12:41 77 24 35 07/01/19 12:30 99.0 52 20 149/85 (106) 100 07/01/19 12:15 56 17 143/90 (107) 100 07/01/19 12:13 18 Mechanical Ventilator 35 07/01/19 12:00 35 07/01/19 12:00 Mechanical Ventilator 07/01/19 12:00 17 Mechanical Ventilator 35 07/01/19 12:00 62 07/01/19 12:00 56 17 148/76 (100) 100 07/01/19 11:45 59 18 139/81 (100) 100 07/01/19 11:30 56 18 121/71 (88) 100 07/01/19 11:15 58 18 131/79 (96) 100 07/01/19 11:00 18 Mechanical Ventilator 35 07/01/19 11:00 56 18 121/71 (88) 100 07/01/19 10:51 56 18 35 07/01/19 10:30 57 18 120/74 (89) 99 07/01/19 10:00 59 18 132/72 (92) 99 07/01/19 10:00 18 Mechanical Ventilator 35 07/01/19 09:30 60 18 118/76 (90) 100 07/01/19 09:12 59 07/01/19 09:00 18 Mechanical Ventilator 35 07/01/19 09:00 58 18 119/73 (88) 99 07/01/19 08:54 58 18 35 07/01/19 08:45 56 18 138/75 (96) 100 07/01/19 08:30 63 18 138/75 (96) 100 07/01/19 08:15 63 18 138/78 (98) 100 07/01/19 08:00 99.1 63 18 122/77 (92) 100 07/01/19 08:00 Mechanical Ventilator 07/01/19 08:00 18 Mechanical Ventilator 35 07/01/19 08:00 122/77 07/01/19 08:00 35 07/01/19 07:30 63 18 121/77 (92) 100 07/01/19 07:19 58 18 35 07/01/19 07:00 56 18 138/75 (96) 100 07/01/19 07:00 18 Mechanical Ventilator 35 07/01/19 07:00 138/75 07/01/19 06:30 60 19 134/78 (96) 100 07/01/19 06:00 18 Mechanical Ventilator 35 07/01/19 06:00 130/67 07/01/19 06:00 58 18 130/67 (88) 100 07/01/19 05:30 56 18 130/80 (97) 100 07/01/19 05:00 57 19 132/84 (100) 100 07/01/19 05:00 19 Mechanical Ventilator 35 07/01/19 05:00 132/84 07/01/19 04:54 57 19 35 07/01/19 04:30 56 17 125/81 (96) 100 07/01/19 04:00 Mechanical Ventilator 07/01/19 04:00 98.8 61 19 130/77 (94) 100 07/01/19 04:00 19 Mechanical Ventilator 35 07/01/19 04:00 130/77 07/01/19 04:00 35 07/01/19 03:48 57 07/01/19 03:45 58 18 130/83 (99) 100 07/01/19 03:30 57 20 139/80 (99) 100 07/01/19 03:15 57 18 133/76 (95) 100 07/01/19 03:00 54 18 134/79 (97) 100 07/01/19 03:00 18 Mechanical Ventilator 35 07/01/19 03:00 134/79 07/01/19 02:42 56 18 35 07/01/19 02:30 56 18 122/79 (93) 100 07/01/19 02:12 16 Mechanical Ventilator 35 07/01/19 02:00 117/76 07/01/19 02:00 58 18 117/76 (90) 99 07/01/19 01:30 59 18 113/71 (85) 99 07/01/19 01:17 59 18 35 07/01/19 01:00 64 18 103/69 (80) 97 07/01/19 01:00 18 Mechanical Ventilator 35 07/01/19 01:00 103/69 07/01/19 00:30 61 18 135/11 (52) 98 07/01/19 00:00 54 07/01/19 00:00 Mechanical Ventilator 07/01/19 00:00 18 Mechanical Ventilator 35 07/01/19 00:00 141/86 8 00:00 99.0 54 18 141/86 (104) 100 07/01/19 00:00 35 06/30/19 23:50 57 8 23:30 54 18 134/94 (107) 97 06/30/19 23:01 62 22 35 18/19 23:00 18 Mechanical Ventilator 35 06/30/19 23:00 126/95 [id number] 23:00 54 18 126/95 (105) 100 1819 22:30 55 18 135/81 (99) 98 06/30/19 22:00 18 Mechanical Ventilator 35 06/30/19 22:00 134/77 06/30/19 22:00 53 19 137/72 (93) 98 06/30/19 21:36 65 18 35 06/30/19 21:30 56 19 135/84 (101) 99 06/30/19 21:00 57 19 133/83 (100) 99 06/30/19 21:00 19 Mechanical Ventilator 35 06/30/19 21:00 133/83 06/30/19 20:35 56 06/30/19 20:30 57 19 118/73 (88) 97 06/30/19 20:00 Mechanical Ventilator 06/30/19 20:00 19 Mechanical Ventilator 35 06/30/19 20:00 100/72 06/30/19 20:00 60 18 20:00 35 06/30/19 20:00 99.0 60 19 100/72 (81) 99 06/30/19 19:30 60 20 112/81 (91) 100 06/30/19 19:16 61 19 35 18/19 19:00 58 18 132/81 (98) 98 19 19:00 18 Mechanical Ventilator 35 06/30/19 19:00 110/90 18/19 18:30 56 18 121/90 (100) 98 19 18:00 54 19 119/85 (96) 98 18 18:00 18 Mechanical Ventilator 35 06/30/19 18:00 121/90 18/19 17:30 54 18 129/79 (96) 98 18/19 17:14 55 18 35 18/19 17:00 54 18 111/75 (87) 98 06/30/19 17:00 18 Mechanical Ventilator 30 06/30/19 17:00 129/79 06/30/19 16:30 56 18 116/74 (88) 98 06/30/19 16:00 35 06/30/19 16:00 98.1 61 18 109/73 (85) 99 06/30/19 16:00 Mechanical Ventilator 06/30/19 16:00 18 Mechanical Ventilator 35 06/30/19 16:00 109/73 06/30/19 16:00 55 06/30/19 15:51 18 Mechanical Ventilator 35 06/30/19 15:30 60 20 99/65 (76) 98 06/30/19 15:01 76 21 35 06/30/19 15:00 68 20 134/80 (98) 96 06/30/19 15:00 18 Mechanical Ventilator 40 06/30/19 15:00 134/80 06/30/19 15:00 67 18 134/80 (98) 100 06/30/19 14:30 55 18 109/76 (87) 100 Intake and Output 07/01/19 07/02/19 19:00 07:00 Intake Total 1769.35 ml 970 ml Output Total 755 ml 1360 ml Balance 1014.35 ml -390 ml Intake IV Total 1769.35 ml 970 ml Output Urine Total 755 ml 1360 ml Labs Test 06/29/19 17:55 06/30/19 01:38 06/30/19 05:45 06/30/19 09:45 White Blood Count 19.0 K/UL (4.8-10.8) 15.5 K/UL (4.8-10.8) 15.1 K/UL (4.8-10.8) Red Blood Count 2.09 M/UL (4.20-5.40) 2.84 M/UL (4.20-5.40) 2.84 M/UL (4.20-5.40) Hemoglobin 6.6 G/DL (12.0-16.0) 8.8 G/DL (12.0-16.0) 8.7 G/DL (12.0-16.0) Hematocrit 20.1 % (37.0-47.0) 26.3 % (37.0-47.0) 26.3 % (37.0-47.0) Mean Corpuscular Volume 96 FL (80-99) 93 FL (80-99) 93 FL (80-99) Mean Corpuscular Hemoglobin 31.8 PG (27.0-31.0) 30.9 PG (27.0-31.0) 30.7 PG (27.0-31.0) Mean Corpuscular Hemoglobin Concent 32.9 G/DL (32.0-36.0) 33.4 G/DL (32.0-36.0) 33.1 G/DL (32.0-36.0) Red Cell Distribution Width 14.4 % (11.6-14.8) 14.6 % (11.6-14.8) 14.1 % (11.6-14.8) Platelet Count 87 K/UL (150-450) 61 K/UL (150-450) 60 K/UL (150-450) Mean Platelet Volume 7.2 FL (6.5-10.1) 10.6 FL (6.5-10.1) 10.8 FL (6.5-10.1) Neutrophils (%) (Auto) % (45.0-75.0) % (45.0-75.0) % (45.0-75.0) Lymphocytes (%) (Auto) % (20.0-45.0) % (20.0-45.0) % (20.0-45.0) Monocytes (%) (Auto) % (1.0-10.0) % (1.0-10.0) % (1.0-10.0) Eosinophils (%) (Auto) % (0.0-3.0) % (0.0-3.0) % (0.0-3.0) Basophils (%) (Auto) % (0.0-2.0) % (0.0-2.0) % (0.0-2.0) Differential Total Cells Counted 100 100 100 Neutrophils % (Manual) 71 % (45-75) 89 % (45-75) 92 % (45-75) Lymphocytes % (Manual) 8 % (20-45) 7 % (20-45) 5 % (20-45) Monocytes % (Manual) 1 % (1-10) 4 % (1-10) 3 % (1-10) Eosinophils % (Manual) 0 % (0-3) 0 % (0-3) 0 % (0-3) Basophils % (Manual) 0 % (0-2) 0 % (0-2) 0 % (0-2) Band Neutrophils 20 % (0-8) 0 % (0-8) 0 % (0-8) Nucleated Red Blood Cells 1 /100 WBC Platelet Estimate Decreased Decreased Decreased Platelet Morphology Normal Normal Normal Red Blood Cell Morphology Normal Hypochromasia 2+ 1+ Anisocytosis 1+ Sodium Level 139 MMOL/L (136-145) Potassium Level 5.5 MMOL/L (3.5-5.1) Chloride Level 110 MMOL/L (98-107) Carbon Dioxide Level 18 MMOL/L (21-32) Anion Gap 11 mmol/L (5-15) Blood Urea Nitrogen 37 mg/dL (7-18) Creatinine 3.4 MG/DL (0.55-1.30) Estimat Glomerular Filtration Rate 16.7 mL/min (>60) Glucose Level 217 MG/DL (74-106) Calcium Level 6.1 MG/DL (8.5-10.1) Arterial Blood pH 7.229 (7.350-7.450) Arterial Blood Partial Pressure CO2 38.9 mmHg (35.0-45.0) Arterial Blood Partial Pressure O2 125.4 mmHg (75.0-100.0) Arterial Blood HCO3 15.9 mmol/L (22.0-26.0) Arterial Blood Oxygen Saturation 97.6 % (95-100) Arterial Blood Base Excess -10.8 (-2-2) Maxim Test Positive Test 06/30/19 15:15 06/30/19 15:40 07/01/19 00:00 07/01/19 03:45 Arterial Blood pH 7.234 (7.350-7.450) Arterial Blood Partial Pressure CO2 34.8 mmHg (35.0-45.0) Arterial Blood Partial Pressure O2 73.8 mmHg (75.0-100.0) Arterial Blood HCO3 14.4 mmol/L (22.0-26.0) Arterial Blood Oxygen Saturation 93.3 % (95-100) Arterial Blood Base Excess -12.1 (-2-2) Maxim Test Positive Prothrombin Time 11.1 SEC (9.30-11.50) Prothromb Time International Ratio 1.0 (0.9-1.1) Activated Partial Thromboplast Time 27 SEC (23-33) Sodium Level 137 MMOL/L (136-145) 134 MMOL/L (136-145) Potassium Level 4.9 MMOL/L (3.5-5.1) 4.5 MMOL/L (3.5-5.1) Chloride Level 110 MMOL/L (98-107) 105 MMOL/L (98-107) Carbon Dioxide Level 18 MMOL/L (21-32) 18 MMOL/L (21-32) Anion Gap 9 mmol/L (5-15) 11 mmol/L (5-15) Blood Urea Nitrogen 44 mg/dL (7-18) 41 mg/dL (7-18) Creatinine 4.1 MG/DL (0.55-1.30) 3.8 MG/DL (0.55-1.30) Estimat Glomerular Filtration Rate 13.5 mL/min (>60) 14.7 mL/min (>60) Glucose Level 141 MG/DL (74-106) 133 MG/DL (74-106) Calcium Level 6.3 MG/DL (8.5-10.1) 6.4 MG/DL (8.5-10.1) White Blood Count 14.3 K/UL (4.8-10.8) Red Blood Count 2.90 M/UL (4.20-5.40) Hemoglobin 9.1 G/DL (12.0-16.0) Hematocrit 26.5 % (37.0-47.0) Mean Corpuscular Volume 91 FL (80-99) Mean Corpuscular Hemoglobin 31.4 PG (27.0-31.0) Mean Corpuscular Hemoglobin Concent 34.4 G/DL (32.0-36.0) Red Cell Distribution Width 14.2 % (11.6-14.8) Platelet Count 38 K/UL (150-450) Mean Platelet Volume 12.8 FL (6.5-10.1) Neutrophils (%) (Auto) % (45.0-75.0) Lymphocytes (%) (Auto) % (20.0-45.0) Monocytes (%) (Auto) % (1.0-10.0) Eosinophils (%) (Auto) % (0.0-3.0) Basophils (%) (Auto) % (0.0-2.0) Differential Total Cells Counted 100 Neutrophils % (Manual) 93 % (45-75) Lymphocytes % (Manual) 5 % (20-45) Monocytes % (Manual) 1 % (1-10) Eosinophils % (Manual) 0 % (0-3) Basophils % (Manual) 0 % (0-2) Band Neutrophils 1 % (0-8) Nucleated Red Blood Cells 1 /100 WBC Other Cell Type Pathologist review Platelet Estimate Decreased Platelet Morphology Normal Red Blood Cell Morphology Normal Reticulocyte Count 1.6 % (0.5-2.0) Phosphorus Level 3.8 MG/DL (2.5-4.9) Iron Level 25 ug/dL (50-175) Total Iron Binding Capacity 170 ug/dL (250-450) Percent Iron Saturation 15 % (15-50) Unsaturated Iron Binding 145 ug/dL (112-346) Ferritin 1378 NG/ML (8-388) Total Bilirubin 0.3 MG/DL (0.2-1.0) Aspartate Amino Transf (AST/SGOT) 756 U/L (15-37) Alanine Aminotransferase (ALT/SGPT) 463 U/L (12-78) Alkaline Phosphatase 48 U/L (46-116) Total Protein 4.7 G/DL (6.4-8.2) Albumin 2.2 G/DL (3.4-5.0) Globulin 2.5 g/dL Albumin/Globulin Ratio 0.9 (1.0-2.7) Vitamin B12 Level 1705 PG/ML (193-986) Thyroid Stimulating Hormone (TSH) 0.825 uiU/mL (0.358-3.740) Hepatitis A IgM Antibody Negative (Negative) Hepatitis B Surface Antigen Negative (Negative) Hepatitis B Core IgM Antibody Negative (Negative) Hepatitis C Antibody <0.1 s/co ratio HIV (1&2) Antibody Rapid Preliminary positive Test 07/02/19 02:32 07/02/19 12:15 White Blood Count 16.1 K/UL (4.8-10.8) Red Blood Count 2.88 M/UL (4.20-5.40) Hemoglobin 9.0 G/DL (12.0-16.0) Hematocrit 26.0 % (37.0-47.0) Mean Corpuscular Volume 90 FL (80-99) Mean Corpuscular Hemoglobin 31.3 PG (27.0-31.0) Mean Corpuscular Hemoglobin Concent 34.6 G/DL (32.0-36.0) Red Cell Distribution Width 14.0 % (11.6-14.8) Platelet Count 50 K/UL (150-450) Mean Platelet Volume 11.4 FL (6.5-10.1) Neutrophils (%) (Auto) % (45.0-75.0) Lymphocytes (%) (Auto) % (20.0-45.0) Monocytes (%) (Auto) % (1.0-10.0) Eosinophils (%) (Auto) % (0.0-3.0) Basophils (%) (Auto) % (0.0-2.0) Differential Total Cells Counted 100 Neutrophils % (Manual) 94 % (45-75) Lymphocytes % (Manual) 4 % (20-45) Monocytes % (Manual) 2 % (1-10) Eosinophils % (Manual) 0 % (0-3) Basophils % (Manual) 0 % (0-2) Band Neutrophils 0 % (0-8) Platelet Estimate Decreased Platelet Morphology Normal Polychromasia 1+ Hypochromasia 1+ Prothrombin Time 10.5 SEC (9.30-11.50) Prothromb Time International Ratio 1.0 (0.9-1.1) Fibrinogen 309 mg/dL (200-400) Sodium Level 139 MMOL/L (136-145) Potassium Level 3.9 MMOL/L (3.5-5.1) Chloride Level 109 MMOL/L (98-107) Carbon Dioxide Level 19 MMOL/L (21-32) Anion Gap 11 mmol/L (5-15) Blood Urea Nitrogen 44 mg/dL (7-18) Creatinine 3.5 MG/DL (0.55-1.30) Estimat Glomerular Filtration Rate 16.2 mL/min (>60) Glucose Level 139 MG/DL (74-106) Calcium Level 7.6 MG/DL (8.5-10.1) Magnesium Level 1.5 MG/DL (1.8-2.4) Total Creatine Kinase 1218 U/L (26-308) Arterial Blood pH 7.384 (7.350-7.450) Arterial Blood Partial Pressure CO2 26.9 mmHg (35.0-45.0) Arterial Blood Partial Pressure O2 138.0 mmHg (75.0-100.0) Arterial Blood HCO3 15.7 mmol/L (22.0-26.0) Arterial Blood Oxygen Saturation 97.8 % (95-100) Arterial Blood Base Excess -8.2 (-2-2) Maxim Test Positive Height (Feet): 5 Height (Inches): 4.00 Weight (Pounds): 172 Objective Physical Exam: Vitals: reviewed General Appearance: NAD HEENT: normocephalic, atraumatic ++ trach VENT Neck: non-tender, normal alignment Respiratory/Chest: normal breath sounds bilaterally Cardiovascular/Chest: normal peripheral pulses, normal rate Abdomen: normal bowel sounds, soft, nontender Extremities: normal range of motion Jordan Nguyen MD Jul 02, 2019 14:21
--- NOTE | 2019-07-02 15:53 | Surgery Progress Note ---
Surgery Progress Note Subjective Additional Comments trach site clean. incision with mild oozing labs noted awake and alert and responsive Objective Last 24 Hour Vital Signs Date Time Temp Pulse Resp B/P (MAP) Pulse Ox O2 Delivery O2 Flow Rate FiO2 07/02/19 15:30 54 20 154/78 (103) 100 07/02/19 15:11 76 20 35 07/02/19 15:05 53 18 154/78 (103) 100 07/02/19 15:00 18 Mechanical Ventilator 07/02/19 14:30 54 20 154/84 (107) 100 07/02/19 14:00 20 Mechanical Ventilator 07/02/19 14:00 52 18 151/80 (103) 100 07/02/19 13:30 50 20 151/80 (103) 100 07/02/19 13:27 49 19 35 07/02/19 13:11 19 Mechanical Ventilator 07/02/19 13:00 18 Mechanical Ventilator 07/02/19 13:00 51 18 153/83 (106) 100 07/02/19 12:30 52 19 158/81 (106) 100 07/02/19 12:00 35 07/02/19 12:00 54 07/02/19 12:00 20 Mechanical Ventilator 07/02/19 12:00 Mechanical Ventilator 07/02/19 12:00 97.7 52 20 159/83 (108) 100 07/02/19 11:37 135/76 07/02/19 11:30 55 20 133/77 (95) 100 07/02/19 11:00 56 18 135/76 (95) 100 07/02/19 11:00 18 Mechanical Ventilator 07/02/19 10:46 57 19 35 07/02/19 10:30 55 18 152/78 (102) 99 07/02/19 10:00 20 Mechanical Ventilator 07/02/19 10:00 56 22 159/63 (95) 100 07/02/19 09:30 56 22 157/85 (109) 100 07/02/19 09:01 100 07/02/19 09:00 56 22 35 07/02/19 09:00 54 20 167/83 (111) 100 07/02/19 09:00 18 Mechanical Ventilator 07/02/19 08:30 98.3 55 18 157/85 (109) 100 07/02/19 08:00 Mechanical Ventilator 07/02/19 08:00 20 Mechanical Ventilator 07/02/19 08:00 98.3 53 18 164/86 (112) 100 07/02/19 08:00 35 07/02/19 08:00 54 07/02/19 07:30 62 20 173/67 (102) 100 07/02/19 07:29 56 19 35 35 07/02/19 07:00 16 Mechanical Ventilator 30 07/02/19 07:00 55 20 161/82 (108) 100 07/02/19 06:30 54 20 151/82 (105) 100 07/02/19 06:00 54 18 161/80 (107) 100 07/02/19 06:00 18 Mechanical Ventilator 30 07/02/19 05:30 54 18 152/80 (104) 100 07/02/19 05:00 20 Mechanical Ventilator 35 07/02/19 05:00 78 20 35 07/02/19 05:00 54 21 137/82 (100) 100 07/02/19 04:30 68 21 151/83 (105) 100 07/02/19 04:00 Mechanical Ventilator 07/02/19 04:00 98.4 68 21 151/83 (105) 100 07/02/19 04:00 35 07/02/19 04:00 20 Mechanical Ventilator 35 07/02/19 04:00 68 07/02/19 03:30 93 22 160/80 (106) 100 07/02/19 03:00 59 20 147/78 (101) 100 07/02/19 03:00 18 Mechanical Ventilator 35 07/02/19 02:48 60 20 35 07/02/19 02:30 59 19 142/79 (100) 100 07/02/19 02:00 64 19 158/84 (108) 100 07/02/19 02:00 18 Mechanical Ventilator 35 07/02/19 01:30 57 19 158/85 (109) 100 07/02/19 01:00 54 19 160/85 (110) 100 07/02/19 00:59 20 Mechanical Ventilator 35 07/02/19 00:50 63 18 35 07/02/19 00:30 55 19 154/85 (108) 100 07/02/19 00:00 Mechanical Ventilator 07/02/19 00:00 55 07/02/19 00:00 98.2 56 19 154/81 (105) 100 07/02/19 00:00 18 Mechanical Ventilator 35 07/02/19 00:00 35 07/01/19 23:30 56 19 158/85 (109) 100 07/01/19 23:00 62 18 145/88 (107) 100 07/01/19 23:00 18 Mechanical Ventilator 35 07/01/19 22:30 62 18 158/85 (109) 100 07/01/19 22:30 68 20 35 07/01/19 22:00 62 18 163/87 (112) 100 07/01/19 22:00 18 Mechanical Ventilator 35 07/01/19 21:30 64 18 160/88 (112) 100 07/01/19 21:00 18 Mechanical Ventilator 35 07/01/19 21:00 64 18 161/88 (112) 100 07/01/19 20:45 70 20 35 07/01/19 20:30 62 18 154/87 (109) 100 07/01/19 20:00 35 07/01/19 20:00 55 07/01/19 20:00 Mechanical Ventilator 07/01/19 20:00 98.4 55 18 154/55 (88) 100 07/01/19 20:00 18 Mechanical Ventilator 35 07/01/19 19:30 56 19 158/84 (108) 100 07/01/19 19:00 20 Mechanical Ventilator 35 07/01/19 19:00 60 20 160/91 (114) 100 07/01/19 18:57 58 20 35 07/01/19 18:30 67 22 166/89 (114) 98 07/01/19 18:00 53 18 154/94 (114) 100 07/01/19 18:00 18 Mechanical Ventilator 35 07/01/19 17:30 59 18 164/87 (112) 100 07/01/19 17:00 18 Mechanical Ventilator 35 07/01/19 17:00 54 18 168/88 (114) 100 07/01/19 16:52 53 20 35 07/01/19 16:30 98.5 54 20 161/90 (113) 100 07/01/19 16:00 53 18 152/86 (108) 100 07/01/19 16:00 35 07/01/19 16:00 53 07/01/19 16:00 18 Mechanical Ventilator 35 07/01/19 16:00 Mechanical Ventilator I&O Intake and Output 07/01/19 07/02/19 19:00 07:00 Intake Total 1769.35 ml 970 ml Output Total 755 ml 1360 ml Balance 1014.35 ml -390 ml Intake IV Total 1769.35 ml 970 ml Output Urine Total 755 ml 1360 ml Dressing: saturated Wound: other Drains: other Cardiovascular: RSR Respiratory: decreased breath sounds Abdomen: soft, present bowel sounds, non-distended Extremities: other Laboratory Tests Test 07/02/19 02:32 07/02/19 12:15 White Blood Count 16.1 K/UL (4.8-10.8) H Red Blood Count 2.88 M/UL (4.20-5.40) L Hemoglobin 9.0 G/DL (12.0-16.0) L Hematocrit 26.0 % (37.0-47.0) L Mean Corpuscular Volume 90 FL (80-99) Mean Corpuscular Hemoglobin 31.3 PG (27.0-31.0) H Mean Corpuscular Hemoglobin Concent 34.6 G/DL (32.0-36.0) Red Cell Distribution Width 14.0 % (11.6-14.8) Platelet Count 50 K/UL (150-450) L Mean Platelet Volume 11.4 FL (6.5-10.1) H Neutrophils (%) (Auto) % (45.0-75.0) Lymphocytes (%) (Auto) % (20.0-45.0) Monocytes (%) (Auto) % (1.0-10.0) Eosinophils (%) (Auto) % (0.0-3.0) Basophils (%) (Auto) % (0.0-2.0) Differential Total Cells Counted 100 Neutrophils % (Manual) 94 % (45-75) H Lymphocytes % (Manual) 4 % (20-45) L Monocytes % (Manual) 2 % (1-10) Eosinophils % (Manual) 0 % (0-3) Basophils % (Manual) 0 % (0-2) Band Neutrophils 0 % (0-8) Platelet Estimate Decreased L Platelet Morphology Normal Polychromasia 1+ Hypochromasia 1+ Prothrombin Time 10.5 SEC (9.30-11.50) Prothromb Time International Ratio 1.0 (0.9-1.1) Fibrinogen 309 mg/dL (200-400) Sodium Level 139 MMOL/L (136-145) Potassium Level 3.9 MMOL/L (3.5-5.1) Chloride Level 109 MMOL/L (98-107) H Carbon Dioxide Level 19 MMOL/L (21-32) L Anion Gap 11 mmol/L (5-15) Blood Urea Nitrogen 44 mg/dL (7-18) H Creatinine 3.5 MG/DL (0.55-1.30) H Estimat Glomerular Filtration Rate 16.2 mL/min (>60) Glucose Level 139 MG/DL (74-106) H Calcium Level 7.6 MG/DL (8.5-10.1) L Magnesium Level 1.5 MG/DL (1.8-2.4) L Total Creatine Kinase 1218 U/L (26-308) H Arterial Blood pH 7.384 (7.350-7.450) Arterial Blood Partial Pressure CO2 26.9 mmHg (35.0-45.0) L Arterial Blood Partial Pressure O2 138.0 mmHg (75.0-100.0) H Arterial Blood HCO3 15.7 mmol/L (22.0-26.0) *L Arterial Blood Oxygen Saturation 97.8 % (95-100) Arterial Blood Base Excess -8.2 (-2-2) L Maxim Test Positive Plan Problems: (1) Angioedema Assessment & Plan: airway trach as per reports trach stable currently sutures in place dressings changed HD line in place and noted will follow with recs thank you George Cavazos Jul 02, 2019 15:53
--- NOTE | 2019-07-02 16:53 | Diagnostic Imaging Report ---
Indication: Abdominal pain Technique: Huerta-scale and duplex images of the upper abdomen were obtained Comparison: none Findings: There is incidental finding of trace pleural fluid on the right. Gallbladder is unremarkable, without stones, wall thickening, nor pericholecystic fluid. Sonographic Reyes's sign is negative. Common bile duct measures 3 mm in diameter. No intrahepatic biliary ductal dilatation. Liver demonstrates normal echogenicity, no focal abnormality. Portal vein and hepatic veins are patent. The pancreatic duct is ectatic, measuring up to 5 mm in diameter, Spleen is unremarkable. Left kidney measures 8.8 cm in length. Right kidney measures 11.2 cm length. Both kidneys demonstrate normal echogenicity. There is no hydronephrosis. No focal abnormality . Non-aneurysmal abdominal aorta . Impression: Negative for gallstones or dilated bile ducts Ectatic pancreatic duct. Significance/etiology uncertain. This can be seen in chronic pancreatitis as well as ductectatic neoplasm. Correlate with clinical history, clinical and laboratory findings, consider CT or MRI for better characterization if clinically indicated Incidental finding of right pleural effusion
--- NOTE | 2019-07-02 17:28 | Critical Care Progress Note ---
Assessment/Plan Assessment/Plan Angioedema Severe Hypotension Previous Hypertension Cocaine abuse s/p emergent trach Anemia secondary to blood loss acute respiratory failure leukocytosis, possible steroid related thrombocytopenia renal failure, acute on chronic toxic metabolic encephalopathy PLAN post op care iv steroids ? taper; q8 for now heme, renal evaluation noted vent support as is and try to wean nutrition needed monitor for bleeding monitor sedation ICU care support as able monitor hemodynamics medications/laboratory data/nursing notes/ICU care reviewed in detail note reviewed and edited care discussed with RN and RT ICU time spent 40 minutes Critical Care - Subjective Interval Events: care noted all appreciated ICU care reviewed Condition: critical EKG Rhythm: Sinus Rhythm I&O: Intake and Output 07/01/19 07/02/19 19:00 07:00 Intake Total 1769.35 ml 970 ml Output Total 755 ml 1360 ml Balance 1014.35 ml -390 ml Intake IV Total 1769.35 ml 970 ml Output Urine Total 755 ml 1360 ml Critical Care - Objective Last 24 Hour Vital Signs Date Time Temp Pulse Resp B/P (MAP) Pulse Ox O2 Delivery O2 Flow Rate FiO2 07/02/19 17:00 20 Mechanical Ventilator 07/02/19 17:00 56 20 146/78 (100) 100 07/02/19 16:30 54 18 159/94 (115) 100 07/02/19 16:00 98.0 60 18 153/91 (111) 100 07/02/19 16:00 Mechanical Ventilator 07/02/19 16:00 18 Mechanical Ventilator 07/02/19 16:00 35 07/02/19 16:00 50 07/02/19 15:30 54 20 154/78 (103) 100 07/02/19 15:11 76 20 35 07/02/19 15:05 53 18 154/78 (103) 100 07/02/19 15:00 18 Mechanical Ventilator 07/02/19 14:30 54 20 154/84 (107) 100 07/02/19 14:00 20 Mechanical Ventilator 07/02/19 14:00 52 18 151/80 (103) 100 07/02/19 13:30 50 20 151/80 (103) 100 07/02/19 13:27 49 19 35 07/02/19 13:11 19 Mechanical Ventilator 07/02/19 13:00 18 Mechanical Ventilator 07/02/19 13:00 51 18 153/83 (106) 100 07/02/19 12:30 52 19 158/81 (106) 100 07/02/19 12:00 35 07/02/19 12:00 54 07/02/19 12:00 20 Mechanical Ventilator 07/02/19 12:00 Mechanical Ventilator 07/02/19 12:00 97.7 52 20 159/83 (108) 100 07/02/19 11:37 135/76 07/02/19 11:30 55 20 133/77 (95) 100 07/02/19 11:00 56 18 135/76 (95) 100 07/02/19 11:00 18 Mechanical Ventilator 07/02/19 10:46 57 19 35 07/02/19 10:30 55 18 152/78 (102) 99 07/02/19 10:00 20 Mechanical Ventilator 07/02/19 10:00 56 22 159/63 (95) 100 07/02/19 09:30 56 22 157/85 (109) 100 07/02/19 09:01 100 07/02/19 09:00 56 22 35 07/02/19 09:00 54 20 167/83 (111) 100 07/02/19 09:00 18 Mechanical Ventilator 07/02/19 08:30 98.3 55 18 157/85 (109) 100 07/02/19 08:00 Mechanical Ventilator 07/02/19 08:00 20 Mechanical Ventilator 07/02/19 08:00 98.3 53 18 164/86 (112) 100 07/02/19 08:00 35 07/02/19 08:00 54 07/02/19 07:30 62 20 173/67 (102) 100 07/02/19 07:29 56 19 35 35 07/02/19 07:00 16 Mechanical Ventilator 30 07/02/19 07:00 55 20 161/82 (108) 100 07/02/19 06:30 54 20 151/82 (105) 100 07/02/19 06:00 54 18 161/80 (107) 100 07/02/19 06:00 18 Mechanical Ventilator 30 07/02/19 05:30 54 18 152/80 (104) 100 07/02/19 05:00 20 Mechanical Ventilator 35 07/02/19 05:00 78 20 35 07/02/19 05:00 54 21 137/82 (100) 100 07/02/19 04:30 68 21 151/83 (105) 100 07/02/19 04:00 Mechanical Ventilator 07/02/19 04:00 98.4 68 21 151/83 (105) 100 07/02/19 04:00 35 07/02/19 04:00 20 Mechanical Ventilator 35 07/02/19 04:00 68 07/02/19 03:30 93 22 160/80 (106) 100 07/02/19 03:00 59 20 147/78 (101) 100 07/02/19 03:00 18 Mechanical Ventilator 35 07/02/19 02:48 60 20 35 07/02/19 02:30 59 19 142/79 (100) 100 07/02/19 02:00 64 19 158/84 (108) 100 07/02/19 02:00 18 Mechanical Ventilator 35 07/02/19 01:30 57 19 158/85 (109) 100 07/02/19 01:00 54 19 160/85 (110) 100 07/02/19 00:59 20 Mechanical Ventilator 35 07/02/19 00:50 63 18 35 07/02/19 00:30 55 19 154/85 (108) 100 07/02/19 00:00 Mechanical Ventilator 07/02/19 00:00 55 07/02/19 00:00 98.2 56 19 154/81 (105) 100 07/02/19 00:00 18 Mechanical Ventilator 35 07/02/19 00:00 35 07/01/19 23:30 56 19 158/85 (109) 100 07/01/19 23:00 62 18 145/88 (107) 100 07/01/19 23:00 18 Mechanical Ventilator 35 07/01/19 22:30 62 18 158/85 (109) 100 07/01/19 22:30 68 20 35 07/01/19 22:00 62 18 163/87 (112) 100 07/01/19 22:00 18 Mechanical Ventilator 35 07/01/19 21:30 64 18 160/88 (112) 100 07/01/19 21:00 18 Mechanical Ventilator 35 07/01/19 21:00 64 18 161/88 (112) 100 07/01/19 20:45 70 20 35 07/01/19 20:30 62 18 154/87 (109) 100 07/01/19 20:00 35 07/01/19 20:00 55 07/01/19 20:00 Mechanical Ventilator 07/01/19 20:00 98.4 55 18 154/55 (88) 100 07/01/19 20:00 18 Mechanical Ventilator 35 07/01/19 19:30 56 19 158/84 (108) 100 07/01/19 19:00 20 Mechanical Ventilator 35 07/01/19 19:00 60 20 160/91 (114) 100 07/01/19 18:57 58 20 35 07/01/19 18:30 67 22 166/89 (114) 98 07/01/19 18:00 53 18 154/94 (114) 100 07/01/19 18:00 18 Mechanical Ventilator 35 07/01/19 17:30 59 18 164/87 (112) 100 Labs: Labs Test 06/29/19 17:55 06/30/19 01:38 06/30/19 05:45 06/30/19 09:45 White Blood Count 19.0 K/UL (4.8-10.8) 15.5 K/UL (4.8-10.8) 15.1 K/UL (4.8-10.8) Red Blood Count 2.09 M/UL (4.20-5.40) 2.84 M/UL (4.20-5.40) 2.84 M/UL (4.20-5.40) Hemoglobin 6.6 G/DL (12.0-16.0) 8.8 G/DL (12.0-16.0) 8.7 G/DL (12.0-16.0) Hematocrit 20.1 % (37.0-47.0) 26.3 % (37.0-47.0) 26.3 % (37.0-47.0) Mean Corpuscular Volume 96 FL (80-99) 93 FL (80-99) 93 FL (80-99) Mean Corpuscular Hemoglobin 31.8 PG (27.0-31.0) 30.9 PG (27.0-31.0) 30.7 PG (27.0-31.0) Mean Corpuscular Hemoglobin Concent 32.9 G/DL (32.0-36.0) 33.4 G/DL (32.0-36.0) 33.1 G/DL (32.0-36.0) Red Cell Distribution Width 14.4 % (11.6-14.8) 14.6 % (11.6-14.8) 14.1 % (11.6-14.8) Platelet Count 87 K/UL (150-450) 61 K/UL (150-450) 60 K/UL (150-450) Mean Platelet Volume 7.2 FL (6.5-10.1) 10.6 FL (6.5-10.1) 10.8 FL (6.5-10.1) Neutrophils (%) (Auto) % (45.0-75.0) % (45.0-75.0) % (45.0-75.0) Lymphocytes (%) (Auto) % (20.0-45.0) % (20.0-45.0) % (20.0-45.0) Monocytes (%) (Auto) % (1.0-10.0) % (1.0-10.0) % (1.0-10.0) Eosinophils (%) (Auto) % (0.0-3.0) % (0.0-3.0) % (0.0-3.0) Basophils (%) (Auto) % (0.0-2.0) % (0.0-2.0) % (0.0-2.0) Differential Total Cells Counted 100 100 100 Neutrophils % (Manual) 71 % (45-75) 89 % (45-75) 92 % (45-75) Lymphocytes % (Manual) 8 % (20-45) 7 % (20-45) 5 % (20-45) Monocytes % (Manual) 1 % (1-10) 4 % (1-10) 3 % (1-10) Eosinophils % (Manual) 0 % (0-3) 0 % (0-3) 0 % (0-3) Basophils % (Manual) 0 % (0-2) 0 % (0-2) 0 % (0-2) Band Neutrophils 20 % (0-8) 0 % (0-8) 0 % (0-8) Nucleated Red Blood Cells 1 /100 WBC Platelet Estimate Decreased Decreased Decreased Platelet Morphology Normal Normal Normal Red Blood Cell Morphology Normal Hypochromasia 2+ 1+ Anisocytosis 1+ Sodium Level 139 MMOL/L (136-145) Potassium Level 5.5 MMOL/L (3.5-5.1) Chloride Level 110 MMOL/L (98-107) Carbon Dioxide Level 18 MMOL/L (21-32) Anion Gap 11 mmol/L (5-15) Blood Urea Nitrogen 37 mg/dL (7-18) Creatinine 3.4 MG/DL (0.55-1.30) Estimat Glomerular Filtration Rate 16.7 mL/min (>60) Glucose Level 217 MG/DL (74-106) Calcium Level 6.1 MG/DL (8.5-10.1) Arterial Blood pH 7.229 (7.350-7.450) Arterial Blood Partial Pressure CO2 38.9 mmHg (35.0-45.0) Arterial Blood Partial Pressure O2 125.4 mmHg (75.0-100.0) Arterial Blood HCO3 15.9 mmol/L (22.0-26.0) Arterial Blood Oxygen Saturation 97.6 % (95-100) Arterial Blood Base Excess -10.8 (-2-2) Maxim Test Positive Test 06/30/19 15:15 06/30/19 15:40 07/01/19 00:00 07/01/19 03:45 Arterial Blood pH 7.234 (7.350-7.450) Arterial Blood Partial Pressure CO2 34.8 mmHg (35.0-45.0) Arterial Blood Partial Pressure O2 73.8 mmHg (75.0-100.0) Arterial Blood HCO3 14.4 mmol/L (22.0-26.0) Arterial Blood Oxygen Saturation 93.3 % (95-100) Arterial Blood Base Excess -12.1 (-2-2) Maxim Test Positive Prothrombin Time 11.1 SEC (9.30-11.50) Prothromb Time International Ratio 1.0 (0.9-1.1) Activated Partial Thromboplast Time 27 SEC (23-33) Sodium Level 137 MMOL/L (136-145) 134 MMOL/L (136-145) Potassium Level 4.9 MMOL/L (3.5-5.1) 4.5 MMOL/L (3.5-5.1) Chloride Level 110 MMOL/L (98-107) 105 MMOL/L (98-107) Carbon Dioxide Level 18 MMOL/L (21-32) 18 MMOL/L (21-32) Anion Gap 9 mmol/L (5-15) 11 mmol/L (5-15) Blood Urea Nitrogen 44 mg/dL (7-18) 41 mg/dL (7-18) Creatinine 4.1 MG/DL (0.55-1.30) 3.8 MG/DL (0.55-1.30) Estimat Glomerular Filtration Rate 13.5 mL/min (>60) 14.7 mL/min (>60) Glucose Level 141 MG/DL (74-106) 133 MG/DL (74-106) Calcium Level 6.3 MG/DL (8.5-10.1) 6.4 MG/DL (8.5-10.1) HIV-1 Antibody Positive (Negative) HIV-2 Antibody Negative (Negative) HIV Note Hiv-1 positive (.) White Blood Count 14.3 K/UL (4.8-10.8) Red Blood Count 2.90 M/UL (4.20-5.40) Hemoglobin 9.1 G/DL (12.0-16.0) Hematocrit 26.5 % (37.0-47.0) Mean Corpuscular Volume 91 FL (80-99) Mean Corpuscular Hemoglobin 31.4 PG (27.0-31.0) Mean Corpuscular Hemoglobin Concent 34.4 G/DL (32.0-36.0) Red Cell Distribution Width 14.2 % (11.6-14.8) Platelet Count 38 K/UL (150-450) Mean Platelet Volume 12.8 FL (6.5-10.1) Neutrophils (%) (Auto) % (45.0-75.0) Lymphocytes (%) (Auto) % (20.0-45.0) Monocytes (%) (Auto) % (1.0-10.0) Eosinophils (%) (Auto) % (0.0-3.0) Basophils (%) (Auto) % (0.0-2.0) Differential Total Cells Counted 100 Neutrophils % (Manual) 93 % (45-75) Lymphocytes % (Manual) 5 % (20-45) Monocytes % (Manual) 1 % (1-10) Eosinophils % (Manual) 0 % (0-3) Basophils % (Manual) 0 % (0-2) Band Neutrophils 1 % (0-8) Nucleated Red Blood Cells 1 /100 WBC Other Cell Type Pathologist review Platelet Estimate Decreased Platelet Morphology Normal Red Blood Cell Morphology Normal Reticulocyte Count 1.6 % (0.5-2.0) Phosphorus Level 3.8 MG/DL (2.5-4.9) Iron Level 25 ug/dL (50-175) Total Iron Binding Capacity 170 ug/dL (250-450) Percent Iron Saturation 15 % (15-50) Unsaturated Iron Binding 145 ug/dL (112-346) Ferritin 1378 NG/ML (8-388) Total Bilirubin 0.3 MG/DL (0.2-1.0) Aspartate Amino Transf (AST/SGOT) 756 U/L (15-37) Alanine Aminotransferase (ALT/SGPT) 463 U/L (12-78) Alkaline Phosphatase 48 U/L (46-116) Total Protein 4.7 G/DL (6.4-8.2) Albumin 2.2 G/DL (3.4-5.0) Globulin 2.5 g/dL Albumin/Globulin Ratio 0.9 (1.0-2.7) Vitamin B12 Level 1705 PG/ML (193-986) Thyroid Stimulating Hormone (TSH) 0.825 uiU/mL (0.358-3.740) Hepatitis A IgM Antibody Negative (Negative) Hepatitis B Surface Antigen Negative (Negative) Hepatitis B Core IgM Antibody Negative (Negative) Hepatitis C Antibody <0.1 s/co ratio HIV (1&2) Antibody Rapid Preliminary positive Test 07/02/19 02:32 07/02/19 12:15 White Blood Count 16.1 K/UL (4.8-10.8) Red Blood Count 2.88 M/UL (4.20-5.40) Hemoglobin 9.0 G/DL (12.0-16.0) Hematocrit 26.0 % (37.0-47.0) Mean Corpuscular Volume 90 FL (80-99) Mean Corpuscular Hemoglobin 31.3 PG (27.0-31.0) Mean Corpuscular Hemoglobin Concent 34.6 G/DL (32.0-36.0) Red Cell Distribution Width 14.0 % (11.6-14.8) Platelet Count 50 K/UL (150-450) Mean Platelet Volume 11.4 FL (6.5-10.1) Neutrophils (%) (Auto) % (45.0-75.0) Lymphocytes (%) (Auto) % (20.0-45.0) Monocytes (%) (Auto) % (1.0-10.0) Eosinophils (%) (Auto) % (0.0-3.0) Basophils (%) (Auto) % (0.0-2.0) Differential Total Cells Counted 100 Neutrophils % (Manual) 94 % (45-75) Lymphocytes % (Manual) 4 % (20-45) Monocytes % (Manual) 2 % (1-10) Eosinophils % (Manual) 0 % (0-3) Basophils % (Manual) 0 % (0-2) Band Neutrophils 0 % (0-8) Platelet Estimate Decreased Platelet Morphology Normal Polychromasia 1+ Hypochromasia 1+ Prothrombin Time 10.5 SEC (9.30-11.50) Prothromb Time International Ratio 1.0 (0.9-1.1) Fibrinogen 309 mg/dL (200-400) Sodium Level 139 MMOL/L (136-145) Potassium Level 3.9 MMOL/L (3.5-5.1) Chloride Level 109 MMOL/L (98-107) Carbon Dioxide Level 19 MMOL/L (21-32) Anion Gap 11 mmol/L (5-15) Blood Urea Nitrogen 44 mg/dL (7-18) Creatinine 3.5 MG/DL (0.55-1.30) Estimat Glomerular Filtration Rate 16.2 mL/min (>60) Glucose Level 139 MG/DL (74-106) Calcium Level 7.6 MG/DL (8.5-10.1) Magnesium Level 1.5 MG/DL (1.8-2.4) Total Creatine Kinase 1218 U/L (26-308) Arterial Blood pH 7.384 (7.350-7.450) Arterial Blood Partial Pressure CO2 26.9 mmHg (35.0-45.0) Arterial Blood Partial Pressure O2 138.0 mmHg (75.0-100.0) Arterial Blood HCO3 15.7 mmol/L (22.0-26.0) Arterial Blood Oxygen Saturation 97.8 % (95-100) Arterial Blood Base Excess -8.2 (-2-2) Maxim Test Positive Objective: WDWN on trach and vent reduced LOC reduced breath sounds bilaterally without rhonchi or wheeze [id number] without MRG NABS nontender no HSM no CCE nonfocal but sedated NABS nontender no distention Accucheck: 147 Radames Ray MD Jul 02, 2019 17:27
[2019-07-02] MEDS ORDERED: D5 1/2NS 1000ml IV ONE (17:52)
[2019-07-02] MEDS ORDERED: NS 275ml ONE (17:52)
--- NOTE | 2019-07-02 18:40 | Cardiac Electrophysiology PN ---
Assessment/Plan Assessment/Plan 1. Angioedema, s/p emergency tracheostomy on the Vent 2. Severe Hypotension , Now off both pressors. 3. Hx of Hypertension 4. Cocaine abuse 5. ARF . Last HD yesterday and no further scheduled 6. Anemia partial blood loss during tracheostomy DW RN Subjective Subjective Intubated via tracheostomy. Off Pressors. Lowest HR 50 sinus luis Objective Last 24 Hour Vital Signs Date Time Temp Pulse Resp B/P (MAP) Pulse Ox O2 Delivery O2 Flow Rate FiO2 07/02/19 18:30 54 19 152/77 (102) 100 07/02/19 18:00 20 Mechanical Ventilator 07/02/19 18:00 52 19 154/77 (102) 100 07/02/19 17:30 50 20 154/77 (102) 99 07/02/19 17:30 50 21 166/88 (114) 100 07/02/19 17:25 108 22 35 07/02/19 17:00 20 Mechanical Ventilator 07/02/19 17:00 56 20 146/78 (100) 100 07/02/19 16:30 54 18 159/94 (115) 100 07/02/19 16:00 98.0 60 18 153/91 (111) 100 07/02/19 16:00 Mechanical Ventilator 07/02/19 16:00 18 Mechanical Ventilator 07/02/19 16:00 35 07/02/19 16:00 50 07/02/19 15:30 54 20 154/78 (103) 100 07/02/19 15:11 76 20 35 07/02/19 15:05 53 18 154/78 (103) 100 07/02/19 15:00 18 Mechanical Ventilator 07/02/19 14:30 54 20 154/84 (107) 100 07/02/19 14:00 20 Mechanical Ventilator 07/02/19 14:00 52 18 151/80 (103) 100 07/02/19 13:30 50 20 151/80 (103) 100 07/02/19 13:27 49 19 35 07/02/19 13:11 19 Mechanical Ventilator 07/02/19 13:00 18 Mechanical Ventilator 07/02/19 13:00 51 18 153/83 (106) 100 07/02/19 12:30 52 19 158/81 (106) 100 07/02/19 12:00 35 8/20/19 12:00 54 07/02/19 12:00 20 Mechanical Ventilator 07/02/19 12:00 Mechanical Ventilator 07/02/19 12:00 97.7 52 20 159/83 (108) 100 07/02/19 11:37 135/76 07/02/19 11:30 55 20 133/77 (95) 100 07/02/19 11:00 56 18 135/76 (95) 100 07/02/19 11:00 18 Mechanical Ventilator 07/02/19 10:46 57 19 35 07/02/19 10:30 55 18 152/78 (102) 99 07/02/19 10:00 20 Mechanical Ventilator 07/02/19 10:00 56 22 159/63 (95) 100 07/02/19 09:30 56 22 157/85 (109) 100 07/02/19 09:01 100 07/02/19 09:00 56 22 35 07/02/19 09:00 54 20 167/83 (111) 100 07/02/19 09:00 18 Mechanical Ventilator 07/02/19 08:30 98.3 55 18 157/85 (109) 100 07/02/19 08:00 Mechanical Ventilator 07/02/19 08:00 20 Mechanical Ventilator 07/02/19 08:00 98.3 53 18 164/86 (112) 100 07/02/19 08:00 35 07/02/19 08:00 54 07/02/19 07:30 62 20 173/67 (102) 100 07/02/19 07:29 56 19 35 35 07/02/19 07:00 16 Mechanical Ventilator 30 07/02/19 07:00 55 20 161/82 (108) 100 07/02/19 06:30 54 20 151/82 (105) 100 07/02/19 06:00 54 18 161/80 (107) 100 07/02/19 06:00 18 Mechanical Ventilator 30 07/02/19 05:30 54 18 152/80 (104) 100 07/02/19 05:00 20 Mechanical Ventilator 35 07/02/19 05:00 78 20 35 07/02/19 05:00 54 21 137/82 (100) 100 07/02/19 04:30 68 21 151/83 (105) 100 07/02/19 04:00 Mechanical Ventilator 07/02/19 04:00 98.4 68 21 151/83 (105) 100 07/02/19 04:00 35 07/02/19 04:00 20 Mechanical Ventilator 35 07/02/19 04:00 68 07/02/19 03:30 93 22 160/80 (106) 100 07/02/19 03:00 59 20 147/78 (101) 100 07/02/19 03:00 18 Mechanical Ventilator 35 07/02/19 02:48 60 20 35 07/02/19 02:30 59 19 142/79 (100) 100 07/02/19 02:00 64 19 158/84 (108) 100 07/02/19 02:00 18 Mechanical Ventilator 35 07/02/19 01:30 57 19 158/85 (109) 100 07/02/19 01:00 54 19 160/85 (110) 100 07/02/19 00:59 20 Mechanical Ventilator 35 07/02/19 00:50 63 18 35 07/02/19 00:30 55 19 154/85 (108) 100 07/02/19 00:00 Mechanical Ventilator 07/02/19 00:00 55 07/02/19 00:00 98.2 56 19 154/81 (105) 100 07/02/19 00:00 18 Mechanical Ventilator 35 07/02/19 00:00 35 07/01/19 23:30 56 19 158/85 (109) 100 07/01/19 23:00 62 18 145/88 (107) 100 07/01/19 23:00 18 Mechanical Ventilator 35 07/01/19 22:30 62 18 158/85 (109) 100 07/01/19 22:30 68 20 35 07/01/19 22:00 62 18 163/87 (112) 100 07/01/19 22:00 18 Mechanical Ventilator 35 07/01/19 21:30 64 18 160/88 (112) 100 07/01/19 21:00 18 Mechanical Ventilator 35 07/01/19 21:00 64 18 161/88 (112) 100 07/01/19 20:45 70 20 35 07/01/19 20:30 62 18 154/87 (109) 100 07/01/19 20:00 35 07/01/19 20:00 55 07/01/19 20:00 Mechanical Ventilator 07/01/19 20:00 98.4 55 18 154/55 (88) 100 07/01/19 20:00 18 Mechanical Ventilator 35 07/01/19 19:30 56 19 158/84 (108) 100 07/01/19 19:00 20 Mechanical Ventilator 35 07/01/19 19:00 60 20 160/91 (114) 100 07/01/19 18:57 58 20 35 Intake and Output 07/01/19 07/02/19 19:00 07:00 Intake Total 1769.35 ml 970 ml Output Total 755 ml 1360 ml Balance 1014.35 ml -390 ml Intake IV Total 1769.35 ml 970 ml Output Urine Total 755 ml 1360 ml Laboratory Tests Test 07/02/19 02:32 07/02/19 12:15 White Blood Count 16.1 K/UL (4.8-10.8) H Red Blood Count 2.88 M/UL (4.20-5.40) L Hemoglobin 9.0 G/DL (12.0-16.0) L Hematocrit 26.0 % (37.0-47.0) L Mean Corpuscular Volume 90 FL (80-99) Mean Corpuscular Hemoglobin 31.3 PG (27.0-31.0) H Mean Corpuscular Hemoglobin Concent 34.6 G/DL (32.0-36.0) Red Cell Distribution Width 14.0 % (11.6-14.8) Platelet Count 50 K/UL (150-450) L Mean Platelet Volume 11.4 FL (6.5-10.1) H Neutrophils (%) (Auto) % (45.0-75.0) Lymphocytes (%) (Auto) % (20.0-45.0) Monocytes (%) (Auto) % (1.0-10.0) Eosinophils (%) (Auto) % (0.0-3.0) Basophils (%) (Auto) % (0.0-2.0) Differential Total Cells Counted 100 Neutrophils % (Manual) 94 % (45-75) H Lymphocytes % (Manual) 4 % (20-45) L Monocytes % (Manual) 2 % (1-10) Eosinophils % (Manual) 0 % (0-3) Basophils % (Manual) 0 % (0-2) Band Neutrophils 0 % (0-8) Platelet Estimate Decreased L Platelet Morphology Normal Polychromasia 1+ Hypochromasia 1+ Prothrombin Time 10.5 SEC (9.30-11.50) Prothromb Time International Ratio 1.0 (0.9-1.1) Fibrinogen 309 mg/dL (200-400) Sodium Level 139 MMOL/L (136-145) Potassium Level 3.9 MMOL/L (3.5-5.1) Chloride Level 109 MMOL/L (98-107) H Carbon Dioxide Level 19 MMOL/L (21-32) L Anion Gap 11 mmol/L (5-15) Blood Urea Nitrogen 44 mg/dL (7-18) H Creatinine 3.5 MG/DL (0.55-1.30) H Estimat Glomerular Filtration Rate 16.2 mL/min (>60) Glucose Level 139 MG/DL (74-106) H Calcium Level 7.6 MG/DL (8.5-10.1) L Magnesium Level 1.5 MG/DL (1.8-2.4) L Total Creatine Kinase 1218 U/L (26-308) H Arterial Blood pH 7.384 (7.350-7.450) Arterial Blood Partial Pressure CO2 26.9 mmHg (35.0-45.0) L Arterial Blood Partial Pressure O2 138.0 mmHg (75.0-100.0) H Arterial Blood HCO3 15.7 mmol/L (22.0-26.0) *L Arterial Blood Oxygen Saturation 97.8 % (95-100) Arterial Blood Base Excess -8.2 (-2-2) L Maxim Test Positive Objective HEENT: Trancheostomy in place LUNGS: Coarse rhonchi CVS: RRR ABDOMEN: Obese EXT: No edema. Left groin Jeison Catheter Giles Rodarte MD Jul 02, 2019 18:40
--- NOTE | 2019-07-02 19:05 | General Progress Note ---
Assessment/Plan Problem List: (1) Tracheostomy hemorrhage ICD Codes: J95.01 - Hemorrhage from tracheostomy stoma SNOMED: 36816564 (2) Tracheostomy complication ICD Codes: J95.00 - Unspecified tracheostomy complication SNOMED: 64336434 (3) Cocaine abuse ICD Codes: F14.10 - Cocaine abuse, uncomplicated SNOMED: 99153766 (4) Angioedema ICD Codes: T78.3XXA - Angioneurotic edema, initial encounter SNOMED: 05891675 Qualifiers: Qualified Codes: T78.3XXA - Angioneurotic edema, initial encounter (5) Hypertension ICD Codes: I10 - Essential (primary) hypertension SNOMED: 57481470 Qualifiers: Qualified Codes: I10 - Essential (primary) hypertension Status: stable, progressing Assessment/Plan: vent resp care monitor for bleeding, pain rx iv steroids dvt/stress ulcer prophylaxis Subjective ROS Limited/Unobtainable: No Constitutional: Reports: malaise, weakness HEENT: Reports: no symptoms Cardiovascular: Reports: no symptoms Respiratory: Reports: shortness of breath Gastrointestinal/Abdominal: Reports: no symptoms Genitourinary: Reports: no symptoms Neurologic/Psychiatric: Reports: no symptoms Endocrine: Reports: no symptoms Hematologic/Lymphatic: Reports: anemia Allergies: Coded Allergies: No Known Allergies (Unverified , 06/29/19) All Systems: reviewed and negative except above Subjective no events. on the vent. no fever or chills. no bleeding. denies pain or sob. Objective Last 24 Hour Vital Signs Date Time Temp Pulse Resp B/P (MAP) Pulse Ox O2 Delivery O2 Flow Rate FiO2 07/02/19 18:30 54 19 152/77 (102) 100 07/02/19 18:00 20 Mechanical Ventilator 07/02/19 18:00 52 19 154/77 (102) 100 07/02/19 17:30 50 20 154/77 (102) 99 07/02/19 17:30 50 21 166/88 (114) 100 07/02/19 17:25 108 22 35 07/02/19 17:00 20 Mechanical Ventilator 07/02/19 17:00 56 20 146/78 (100) 100 07/02/19 16:30 54 18 159/94 (115) 100 07/02/19 16:00 98.0 60 18 153/91 (111) 100 07/02/19 16:00 Mechanical Ventilator 07/02/19 16:00 18 Mechanical Ventilator 07/02/19 16:00 35 07/02/19 16:00 50 07/02/19 15:30 54 20 154/78 (103) 100 07/02/19 15:11 76 20 35 07/02/19 15:05 53 18 154/78 (103) 100 07/02/19 15:00 18 Mechanical Ventilator 07/02/19 14:30 54 20 154/84 (107) 100 07/02/19 14:00 20 Mechanical Ventilator 07/02/19 14:00 52 18 151/80 (103) 100 07/02/19 13:30 50 20 151/80 (103) 100 07/02/19 13:27 49 19 35 07/02/19 13:11 19 Mechanical Ventilator 07/02/19 13:00 18 Mechanical Ventilator 07/02/19 13:00 51 18 153/83 (106) 100 07/02/19 12:30 52 19 158/81 (106) 100 07/02/19 12:00 35 07/02/19 12:00 54 07/02/19 12:00 20 Mechanical Ventilator 07/02/19 12:00 Mechanical Ventilator 07/02/19 12:00 97.7 52 20 159/83 (108) 100 07/02/19 11:37 135/76 07/02/19 11:30 55 20 133/77 (95) 100 07/02/19 11:00 56 18 135/76 (95) 100 07/02/19 11:00 18 Mechanical Ventilator 07/02/19 10:46 57 19 35 07/02/19 10:30 55 18 152/78 (102) 99 07/02/19 10:00 20 Mechanical Ventilator 07/02/19 10:00 56 22 159/63 (95) 100 07/02/19 09:30 56 22 157/85 (109) 100 07/02/19 09:01 100 07/02/19 09:00 56 22 35 07/02/19 09:00 54 20 167/83 (111) 100 07/02/19 09:00 18 Mechanical Ventilator 07/02/19 08:30 98.3 55 18 157/85 (109) 100 07/02/19 08:00 Mechanical Ventilator 07/02/19 08:00 20 Mechanical Ventilator 07/02/19 08:00 98.3 53 18 164/86 (112) 100 07/02/19 08:00 35 07/02/19 08:00 54 07/02/19 07:30 62 20 173/67 (102) 100 07/02/19 07:29 56 19 35 35 07/02/19 07:00 16 Mechanical Ventilator 30 07/02/19 07:00 55 20 161/82 (108) 100 07/02/19 06:30 54 20 151/82 (105) 100 07/02/19 06:00 54 18 161/80 (107) 100 07/02/19 06:00 18 Mechanical Ventilator 30 07/02/19 05:30 54 18 152/80 (104) 100 07/02/19 05:00 20 Mechanical Ventilator 35 07/02/19 05:00 78 20 35 07/02/19 05:00 54 21 137/82 (100) 100 07/02/19 04:30 68 21 151/83 (105) 100 07/02/19 04:00 Mechanical Ventilator 07/02/19 04:00 98.4 68 21 151/83 (105) 100 07/02/19 04:00 35 07/02/19 04:00 20 Mechanical Ventilator 35 07/02/19 04:00 68 07/02/19 03:30 93 22 160/80 (106) 100 07/02/19 03:00 59 20 147/78 (101) 100 07/02/19 03:00 18 Mechanical Ventilator 35 07/02/19 02:48 60 20 35 07/02/19 02:30 59 19 142/79 (100) 100 07/02/19 02:00 64 19 158/84 (108) 100 07/02/19 02:00 18 Mechanical Ventilator 35 07/02/19 01:30 57 19 158/85 (109) 100 07/02/19 01:00 54 19 160/85 (110) 100 07/02/19 00:59 20 Mechanical Ventilator 35 07/02/19 00:50 63 18 35 07/02/19 00:30 55 19 154/85 (108) 100 07/02/19 00:00 Mechanical Ventilator 07/02/19 00:00 55 07/02/19 00:00 98.2 56 19 154/81 (105) 100 07/02/19 00:00 18 Mechanical Ventilator 35 07/02/19 00:00 35 07/01/19 23:30 56 19 158/85 (109) 100 07/01/19 23:00 62 18 145/88 (107) 100 07/01/19 23:00 18 Mechanical Ventilator 35 07/01/19 22:30 62 18 158/85 (109) 100 07/01/19 22:30 68 20 35 07/01/19 22:00 62 18 163/87 (112) 100 07/01/19 22:00 18 Mechanical Ventilator 35 07/01/19 21:30 64 18 160/88 (112) 100 07/01/19 21:00 18 Mechanical Ventilator 35 07/01/19 21:00 64 18 161/88 (112) 100 07/01/19 20:45 70 20 35 07/01/19 20:30 62 18 154/87 (109) 100 07/01/19 20:00 35 07/01/19 20:00 55 07/01/19 20:00 Mechanical Ventilator 07/01/19 20:00 98.4 55 18 154/55 (88) 100 07/01/19 20:00 18 Mechanical Ventilator 35 07/01/19 19:30 56 19 158/84 (108) 100 Intake and Output 07/01/19 07/02/19 19:00 07:00 Intake Total 1769.35 ml 970 ml Output Total 755 ml 1360 ml Balance 1014.35 ml -390 ml Intake IV Total 1769.35 ml 970 ml Output Urine Total 755 ml 1360 ml Laboratory Tests 07/02/19 02:32: White Blood Count 16.1H, Red Blood Count 2.88L, Hemoglobin 9.0L, Hematocrit 26.0L, Mean Corpuscular Volume 90, Mean Corpuscular Hemoglobin 31.3H, Mean Corpuscular Hemoglobin Concent 34.6, Red Cell Distribution Width 14.0, Platelet Count 50L, Mean Platelet Volume 11.4H, Neutrophils (%) (Auto) , Lymphocytes (%) (Auto) , Monocytes (%) (Auto) , Eosinophils (%) (Auto) , Basophils (%) (Auto) , Differential Total Cells Counted 100, Neutrophils % (Manual) 94H, Lymphocytes % (Manual) 4L, Monocytes % (Manual) 2, Eosinophils % (Manual) 0, Basophils % ( Manual) 0, Band Neutrophils 0, Platelet Estimate DecreasedL, Platelet Morphology Normal, Polychromasia 1+, Hypochromasia 1+, Prothrombin Time 10.5, Prothromb Time International Ratio 1.0, Fibrinogen 309, Sodium Level 139, Potassium Level 3.9, Chloride Level 109H, Carbon Dioxide Level 19L, Anion Gap 11 , Blood Urea Nitrogen 44H, Creatinine 3.5H, Estimat Glomerular Filtration Rate 16.2, Glucose Level 139H, Calcium Level 7.6L, Magnesium Level 1.5L, Total Creatine Kinase 1218H 07/02/19 12:15: Arterial Blood pH 7.384, Arterial Blood Partial Pressure CO2 26.9L, Arterial Blood Partial Pressure O2 138.0H, Arterial Blood HCO3 15.7*L, Arterial Blood Oxygen Saturation 97.8, Arterial Blood Base Excess -8.2L, Maxim Test Positive Height (Feet): 5 Height (Inches): 4.00 Weight (Pounds): 172 General Appearance: WD/WN, alert Neck: supple, other - trach midline Cardiovascular: normal rate, regular rhythm Respiratory/Chest: chest wall non-tender, lungs clear, normal breath sounds, no respiratory distress Abdomen: normal bowel sounds, non tender, soft, no organomegaly Edema: no edema noted Arm (L), no edema noted Arm (R), no edema noted Leg (L), no edema noted Leg (R), no edema noted Pedal (L), no edema noted Pedal (R), no edema noted Generalized Danis Markham MD Jul 02, 2019 19:05
--- NOTE | 2019-07-02 19:52 | General Progress Note ---
Assessment/Plan Status: stable, progressing Assessment/Plan: Assessment - Angioedema, s/p emergency trach - dysphagia, did not pass swallow - Thrombocytopenia - HIV (+) - Drug abuse Recommendations - Will hold off on NGT/OGT - re-evaluate swallow function - Monitor platelets Subjective Allergies: Coded Allergies: No Known Allergies (Unverified , 06/29/19) Subjective Feels OK did not pass ST test coughed after 2-3 cc water swallow agreed to a trial of NGT but unable to tolerate it - pushed MD away Objective Last 24 Hour Vital Signs Date Time Temp Pulse Resp B/P (MAP) Pulse Ox O2 Delivery O2 Flow Rate FiO2 07/02/19 19:06 64 20 30 35 07/02/19 19:00 53 20 176/92 (120) 100 07/02/19 18:30 54 19 152/77 (102) 100 07/02/19 18:00 20 Mechanical Ventilator 07/02/19 18:00 52 19 154/77 (102) 100 07/02/19 17:30 50 20 154/77 (102) 99 07/02/19 17:30 50 21 166/88 (114) 100 07/02/19 17:25 108 22 35 07/02/19 17:00 20 Mechanical Ventilator 07/02/19 17:00 56 20 146/78 (100) 100 07/02/19 16:30 54 18 159/94 (115) 100 07/02/19 16:00 98.0 60 18 153/91 (111) 100 07/02/19 16:00 Mechanical Ventilator 07/02/19 16:00 18 Mechanical Ventilator 07/02/19 16:00 35 07/02/19 16:00 50 07/02/19 15:30 54 20 154/78 (103) 100 07/02/19 15:11 76 20 35 07/02/19 15:05 53 18 154/78 (103) 100 07/02/19 15:00 18 Mechanical Ventilator 07/02/19 14:30 54 20 154/84 (107) 100 07/02/19 14:00 20 Mechanical Ventilator 07/02/19 14:00 52 18 151/80 (103) 100 07/02/19 13:30 50 20 151/80 (103) 100 07/02/19 13:27 49 19 35 07/02/19 13:11 19 Mechanical Ventilator 07/02/19 13:00 18 Mechanical Ventilator 07/02/19 13:00 51 18 153/83 (106) 100 07/02/19 12:30 52 19 158/81 (106) 100 07/02/19 12:00 35 07/02/19 12:00 54 07/02/19 12:00 20 Mechanical Ventilator 07/02/19 12:00 Mechanical Ventilator 07/02/19 12:00 97.7 52 20 159/83 (108) 100 07/02/19 11:37 135/76 07/02/19 11:30 55 20 133/77 (95) 100 07/02/19 11:00 56 18 135/76 (95) 100 07/02/19 11:00 18 Mechanical Ventilator 07/02/19 10:46 57 19 35 07/02/19 10:30 55 18 152/78 (102) 99 07/02/19 10:00 20 Mechanical Ventilator 07/02/19 10:00 56 22 159/63 (95) 100 07/02/19 09:30 56 22 157/85 (109) 100 07/02/19 09:01 100 07/02/19 09:00 56 22 35 07/02/19 09:00 54 20 167/83 (111) 100 07/02/19 09:00 18 Mechanical Ventilator 07/02/19 08:30 98.3 55 18 157/85 (109) 100 07/02/19 08:00 Mechanical Ventilator 07/02/19 08:00 20 Mechanical Ventilator 07/02/19 08:00 98.3 53 18 164/86 (112) 100 07/02/19 08:00 35 07/02/19 08:00 54 07/02/19 07:30 62 20 173/67 (102) 100 07/02/19 07:29 56 19 35 35 07/02/19 07:00 16 Mechanical Ventilator 30 07/02/19 07:00 55 20 161/82 (108) 100 07/02/19 06:30 54 20 151/82 (105) 100 07/02/19 06:00 54 18 161/80 (107) 100 07/02/19 06:00 18 Mechanical Ventilator 30 07/02/19 05:30 54 18 152/80 (104) 100 07/02/19 05:00 20 Mechanical Ventilator 35 8/20/19 05:00 78 20 35 07/02/19 05:00 54 21 137/82 (100) 100 07/02/19 04:30 68 21 151/83 (105) 100 07/02/19 04:00 Mechanical Ventilator 07/02/19 04:00 98.4 68 21 151/83 (105) 100 07/02/19 04:00 35 07/02/19 04:00 20 Mechanical Ventilator 35 07/02/19 04:00 68 07/02/19 03:30 93 22 160/80 (106) 100 07/02/19 03:00 59 20 147/78 (101) 100 07/02/19 03:00 18 Mechanical Ventilator 35 07/02/19 02:48 60 20 35 07/02/19 02:30 59 19 142/79 (100) 100 07/02/19 02:00 64 19 158/84 (108) 100 07/02/19 02:00 18 Mechanical Ventilator 35 07/02/19 01:30 57 19 158/85 (109) 100 07/02/19 01:00 54 19 160/85 (110) 100 07/02/19 00:59 20 Mechanical Ventilator 35 07/02/19 00:50 63 18 35 07/02/19 00:30 55 19 154/85 (108) 100 07/02/19 00:00 Mechanical Ventilator 07/02/19 00:00 55 07/02/19 00:00 98.2 56 19 154/81 (105) 100 07/02/19 00:00 18 Mechanical Ventilator 35 07/02/19 00:00 35 07/01/19 23:30 56 19 158/85 (109) 100 07/01/19 23:00 62 18 145/88 (107) 100 07/01/19 23:00 18 Mechanical Ventilator 35 07/01/19 22:30 62 18 158/85 (109) 100 07/01/19 22:30 68 20 35 07/01/19 22:00 62 18 163/87 (112) 100 07/01/19 22:00 18 Mechanical Ventilator 35 07/01/19 21:30 64 18 160/88 (112) 100 07/01/19 21:00 18 Mechanical Ventilator 35 07/01/19 21:00 64 18 161/88 (112) 100 07/01/19 20:45 70 20 35 07/01/19 20:30 62 18 154/87 (109) 100 07/01/19 20:00 35 07/01/19 20:00 55 07/01/19 20:00 Mechanical Ventilator 07/01/19 20:00 98.4 55 18 154/55 (88) 100 07/01/19 20:00 18 Mechanical Ventilator 35 Intake and Output 07/01/19 07/02/19 19:00 07:00 Intake Total 1769.35 ml 970 ml Output Total 755 ml 1360 ml Balance 1014.35 ml -390 ml Intake IV Total 1769.35 ml 970 ml Output Urine Total 755 ml 1360 ml Laboratory Tests 07/02/19 02:32: White Blood Count 16.1H, Red Blood Count 2.88L, Hemoglobin 9.0L, Hematocrit 26.0L, Mean Corpuscular Volume 90, Mean Corpuscular Hemoglobin 31.3H, Mean Corpuscular Hemoglobin Concent 34.6, Red Cell Distribution Width 14.0, Platelet Count 50L, Mean Platelet Volume 11.4H, Neutrophils (%) (Auto) , Lymphocytes (%) (Auto) , Monocytes (%) (Auto) , Eosinophils (%) (Auto) , Basophils (%) (Auto) , Differential Total Cells Counted 100, Neutrophils % (Manual) 94H, Lymphocytes % (Manual) 4L, Monocytes % (Manual) 2, Eosinophils % (Manual) 0, Basophils % ( Manual) 0, Band Neutrophils 0, Platelet Estimate DecreasedL, Platelet Morphology Normal, Polychromasia 1+, Hypochromasia 1+, Prothrombin Time 10.5, Prothromb Time International Ratio 1.0, Fibrinogen 309, Sodium Level 139, Potassium Level 3.9, Chloride Level 109H, Carbon Dioxide Level 19L, Anion Gap 11 , Blood Urea Nitrogen 44H, Creatinine 3.5H, Estimat Glomerular Filtration Rate 16.2, Glucose Level 139H, Calcium Level 7.6L, Magnesium Level 1.5L, Total Creatine Kinase 1218H 07/02/19 12:15: Arterial Blood pH 7.384, Arterial Blood Partial Pressure CO2 26.9L, Arterial Blood Partial Pressure O2 138.0H, Arterial Blood HCO3 15.7*L, Arterial Blood Oxygen Saturation 97.8, Arterial Blood Base Excess -8.2L, Maxim Test Positive Height (Feet): 5 Height (Inches): 4.00 Weight (Pounds): 172 Objective WDWN AA woman NCAT (+) trach Coarse BS RR abd soft no edema Elisabeth Sommers MD Jul 02, 2019 19:52
[2019-07-02] MEDS: Dyna-Hex 2% Top Sol 2oz TOPIC SCH (20:13)
[2019-07-03] VITALS (50 sets, daily range): BP systolic 125–180; BP diastolic 71–102
[2019-07-03] MEDS: D5 1/2NS 1,000 ML IV SCH ×3 (01:01→16:25)
[2019-07-03] MEDS: fentaNYL Citrate 2,500 MCG in NS 200 ML IV SCH ×3 (01:02→17:17)
[2019-07-03] MEDS: LORazepam Inj 2mg/ml 1ml IV PRN (04:56)
[2019-07-03] MEDS: Solu-MEDROL 40mg Inj IVP SCH ×3 (05:59→22:16)
[2019-07-03] MEDS: NovoLOG Insulin Flexpen SUBQ SCH ×4 (06:02→20:12)
[2019-07-03 06:14] LABS: HEMATOCRIT 32.3 % (37.0-47.0); HEMOGLOBIN 10.9 G/DL (12.0-16.0); MEAN CORPUSCULAR VOLUME 93 FL (80-99); PLATELET COUNT 91 K/UL (150-450); RED BLOOD COUNT 3.47 M/UL (4.20-5.40); RED CELL DISTRIBUTION WIDTH 15.2 % (11.6-14.8); WHITE BLOOD COUNT 19.4 K/UL (4.8-10.8)
[2019-07-03 06:26] LABS: ANION GAP 13 mmol/L (5-15); BLOOD UREA NITROGEN 46 mg/dL (7-18); CARBON DIOXIDE 18 MMOL/L (21-32); CHLORIDE 111 MMOL/L (98-107); CREATININE 3.3 MG/DL (0.55-1.30); POTASSIUM 3.4 MMOL/L (3.5-5.1); SODIUM 142 MMOL/L (136-145)
--- NOTE | 2019-07-03 09:13 | General Progress Note ---
Assessment/Plan Problem List: (1) Tracheostomy hemorrhage ICD Codes: J95.01 - Hemorrhage from tracheostomy stoma SNOMED: 84590778 (2) Tracheostomy complication ICD Codes: J95.00 - Unspecified tracheostomy complication SNOMED: 64709597 (3) Cocaine abuse ICD Codes: F14.10 - Cocaine abuse, uncomplicated SNOMED: 11142458 (4) Angioedema ICD Codes: T78.3XXA - Angioneurotic edema, initial encounter SNOMED: 27650408 Qualifiers: Qualified Codes: T78.3XXA - Angioneurotic edema, initial encounter (5) Hypertension ICD Codes: I10 - Essential (primary) hypertension SNOMED: 17126591 Qualifiers: Qualified Codes: I10 - Essential (primary) hypertension Status: stable, progressing Assessment/Plan: vent resp care monitor for bleeding, pain rx iv steroids dvt/stress ulcer prophylaxis anxiolytics add thiamine swallow eval. Subjective ROS Limited/Unobtainable: No Constitutional: Reports: malaise, weakness HEENT: Reports: no symptoms Cardiovascular: Reports: no symptoms Respiratory: Reports: no symptoms Gastrointestinal/Abdominal: Reports: no symptoms Genitourinary: Reports: no symptoms Neurologic/Psychiatric: Reports: no symptoms Endocrine: Reports: no symptoms Hematologic/Lymphatic: Reports: no symptoms Allergies: Coded Allergies: No Known Allergies (Unverified , 06/29/19) All Systems: reviewed and negative except above Subjective no events. on the vent. no fever or chills. no bleeding. denies pain or sob. very agitated per staff. +etoh history Objective Last 24 Hour Vital Signs Date Time Temp Pulse Resp B/P (MAP) Pulse Ox O2 Delivery O2 Flow Rate FiO2 07/03/19 08:48 18 Mechanical Ventilator 07/03/19 08:30 60 18 141/78 (99) 100 07/03/19 08:00 Mechanical Ventilator 07/03/19 08:00 98.0 64 18 161/82 (108) 100 07/03/19 08:00 30 07/03/19 07:30 65 20 173/100 (124) 100 07/03/19 07:26 69 19 30 35 07/03/19 07:00 20 Endotracheal Tube 30 07/03/19 07:00 65 19 175/90 (118) 99 07/03/19 06:30 100 19 150/80 (103) 99 07/03/19 06:00 101 19 172/100 (124) 99 07/03/19 06:00 20 Mechanical Ventilator 30 07/03/19 05:30 100 26 157/94 (115) 99 07/03/19 05:00 100 26 153/94 (113) 99 07/03/19 05:00 20 Mechanical Ventilator 30 07/03/19 04:37 127 25 30 35 07/03/19 04:30 107 26 180/101 (127) 99 07/03/19 04:00 35 07/03/19 04:00 98.2 133 26 146/82 (103) 99 07/03/19 04:00 52 07/03/19 04:00 19 Mechanical Ventilator 30 07/03/19 04:00 Mechanical Ventilator 07/03/19 03:35 178/91 07/03/19 03:30 70 18 172/92 (118) 100 07/03/19 03:09 80 18 30 35 07/03/19 03:00 20 Mechanical Ventilator 30 07/03/19 03:00 75 18 180/84 (116) 100 07/03/19 02:30 71 18 164/84 (110) 100 07/03/19 02:00 52 18 162/83 (109) 100 07/03/19 02:00 19 Mechanical Ventilator 30 07/03/19 01:30 55 18 162/83 (109) 100 07/03/19 01:29 49 18 30 35 07/03/19 01:02 22 Mechanical Ventilator 30 07/03/19 01:00 53 18 179/84 (115) 100 07/03/19 01:00 19 Mechanical Ventilator 30 07/03/19 00:30 50 18 170/101 (124) 100 07/03/19 00:00 Mechanical Ventilator 07/03/19 00:00 20 Mechanical Ventilator 30 07/03/19 00:00 98.2 50 18 161/84 (109) 100 07/03/19 00:00 50 07/02/19 23:30 49 18 145/92 (109) 100 07/02/19 23:00 19 Mechanical Ventilator 30 07/02/19 23:00 49 19 160/84 (109) 100 07/02/19 22:43 48 20 30 35 07/02/19 22:30 49 19 160/84 (109) 100 07/02/19 22:00 50 19 167/84 (111) 100 07/02/19 22:00 19 Mechanical Ventilator 30 07/02/19 21:30 50 19 156/90 (112) 100 07/02/19 21:29 51 18 30 35 07/02/19 21:00 19 Mechanical Ventilator 30 07/02/19 21:00 51 19 161/86 (111) 100 07/02/19 20:30 52 19 160/88 (112) 100 07/02/19 20:00 Mechanical Ventilator 07/02/19 20:00 52 07/02/19 20:00 35 07/02/19 20:00 18 Mechanical Ventilator 30 07/02/19 20:00 98.0 52 19 162/98 (119) 100 07/02/19 19:30 51 19 171/85 (113) 100 07/02/19 19:06 64 20 30 35 07/02/19 19:00 53 20 176/92 (120) 100 07/02/19 18:30 54 19 152/77 (102) 100 07/02/19 18:00 20 Mechanical Ventilator 07/02/19 18:00 52 19 154/77 (102) 100 07/02/19 17:30 50 20 154/77 (102) 99 07/02/19 17:30 50 21 166/88 (114) 100 07/02/19 17:25 108 22 35 07/02/19 17:00 20 Mechanical Ventilator 07/02/19 17:00 56 20 146/78 (100) 100 07/02/19 16:30 54 18 159/94 (115) 100 07/02/19 16:00 98.0 60 18 153/91 (111) 100 07/02/19 16:00 Mechanical Ventilator 07/02/19 16:00 18 Mechanical Ventilator 07/02/19 16:00 35 07/02/19 16:00 50 07/02/19 15:30 54 20 154/78 (103) 100 07/02/19 15:11 76 20 35 07/02/19 15:05 53 18 154/78 (103) 100 07/02/19 15:00 18 Mechanical Ventilator 07/02/19 14:30 54 20 154/84 (107) 100 07/02/19 14:00 20 Mechanical Ventilator 07/02/19 14:00 52 18 151/80 (103) 100 07/02/19 13:30 50 20 151/80 (103) 100 07/02/19 13:27 49 19 35 07/02/19 13:11 19 Mechanical Ventilator 07/02/19 13:00 18 Mechanical Ventilator 07/02/19 13:00 51 18 153/83 (106) 100 07/02/19 12:30 52 19 158/81 (106) 100 07/02/19 12:00 35 07/02/19 12:00 54 07/02/19 12:00 20 Mechanical Ventilator 07/02/19 12:00 Mechanical Ventilator 07/02/19 12:00 97.7 52 20 159/83 (108) 100 07/02/19 11:37 135/76 07/02/19 11:30 55 20 133/77 (95) 100 07/02/19 11:00 56 18 135/76 (95) 100 07/02/19 11:00 18 Mechanical Ventilator 07/02/19 10:46 57 19 35 07/02/19 10:30 55 18 152/78 (102) 99 07/02/19 10:00 20 Mechanical Ventilator 07/02/19 10:00 56 22 159/63 (95) 100 07/02/19 09:30 56 22 157/85 (109) 100 Intake and Output 07/02/19 07/03/19 19:00 07:00 Intake Total 1720 ml 1990 ml Output Total 1250 ml 1440 ml Balance 470 ml 550 ml Intake IV Total 1720 ml 1990 ml Output Urine Total 1250 ml 1440 ml Laboratory Tests 07/02/19 12:15: Arterial Blood pH 7.384, Arterial Blood Partial Pressure CO2 26.9L, Arterial Blood Partial Pressure O2 138.0H, Arterial Blood HCO3 15.7*L, Arterial Blood Oxygen Saturation 97.8, Arterial Blood Base Excess -8.2L, Maxim Test Positive 07/03/19 05:55: White Blood Count 19.4H, Red Blood Count 3.47L, Hemoglobin 10.9L, Hematocrit 32.3L, Mean Corpuscular Volume 93, Mean Corpuscular Hemoglobin 31.5H, Mean Corpuscular Hemoglobin Concent 33.9, Red Cell Distribution Width 15.2H, Platelet Count 91#L, Mean Platelet Volume 11.6H, Neutrophils (%) (Auto) , Lymphocytes (%) (Auto) , Monocytes (%) (Auto) , Eosinophils (%) (Auto) , Basophils (%) (Auto) , Differential Total Cells Counted 100, Neutrophils % ( Manual) 92H, Lymphocytes % (Manual) 5L, Monocytes % (Manual) 3, Eosinophils % ( Manual) 0, Basophils % (Manual) 0, Band Neutrophils 0, Platelet Estimate DecreasedL, Platelet Morphology , Giant Platelets Rare, Polychromasia 1+, Anisocytosis 1+, von Willebrand Factor (VIIIR) [Pending], [id number] Activity [ Pending], Sodium Level 142, Potassium Level 3.4L, Chloride Level 111H, Carbon Dioxide Level 18L, Anion Gap 13, Blood Urea Nitrogen 46H, Creatinine 3.3H, Estimat Glomerular Filtration Rate 17.2, Glucose Level 185H, Calcium Level 8.0L Height (Feet): 5 Height (Inches): 4.00 Weight (Pounds): 168 Objective General Appearance: WD/WN, alert Neck: supple, other - trach midline Cardiovascular: normal rate, regular rhythm Respiratory/Chest: chest wall non-tender, lungs clear, normal breath sounds, no respiratory distress Abdomen: normal bowel sounds, non tender, soft, no organomegaly Edema: no edema noted Arm (L), no edema noted Arm (R), no edema noted Leg (L), no edema noted Leg (R), no edema noted Pedal (L), no edema noted Pedal (R), no edema noted Generalized Danis Markham MD Jul 03, 2019 09:13
--- NOTE | 2019-07-03 09:40 | Hematology/Onc Progress Note ---
Assessment/Plan Assessment/Plan A/R # Thrombocytopenia - potential causes multifactorial, evaluate liver and viral etiologies to begin, also could be related to underlying medications patient has received. HIV is ++ --> Hep panel and HIV is ++ --> US abd to evaluate for cirrhosis and hsm ordered --> DIC panel has alfredo reviewed --> Peripheral smear ordered to evaluate for blasts /schistocytes and none noted --> abx and other meds have been reviewed --> ok for ppx if plt >50k w/ either heparin or lovenox --> Transfuse if Plt < 20k and fever, or if Plt < 10k without fever --> plt trend 200-->87-->60-->38k-> 50k-->91k -> [id number] ordered --> consider id eval for hiv # Anemia of chronic disease due to underlying chronic medical issues, multifactorial --> Anemia workup has been ordered, rule out gi bleed --> No evidence of hemolysis is noted, peripheral smear has been reviewed. --> Hgb goal >7. Transfuse prn. --> Epogen or iron at this time is not particularly indicated --> Medications have been reviewed --> low threshold for gi evaluation in case has occult + --> hgb trend 8.7--> 9-->10.9 # Leukocytosis --> wbc trend 17-->15-->14k->16-->19.4 --> steriods for angioedema # Angioedeam --> ffp, steriods given --> s/p trach # Resp failure s/p trach --> to vent # Severe Hypotension , Now off both pressors. # Hx of Hypertension # Cocaine abuse # ARF on HD now --> 07/02, 07/03 hd The timing of this note does not necessarily reflect the time of the patient was seen. GREATLY APPRECIATE CONSULTATION. Subjective Allergies: Coded Allergies: No Known Allergies (Unverified , 06/29/19) Subjective 07/02: remains in the icu, onpressors and epogen, hgb stable 07/03: in icu, no events, on vent, no fever or chills, denies pain or sob Objective Objective Current Medications Medications (Trade) Dose Ordered Sig/Dmitri Route PRN Reason Start Time Stop Time Status Last Admin Dose Admin Acetaminophen (Tylenol) 650 mg Q4H PRN RECTAL FEVER 06/29/19 11:01 07/29/19 11:00 Chlorhexidine Gluconate (Lynn-Hex 2%) 1 applic DAILY@2000 TOPIC 06/29/19 20:00 07/29/19 19:59 07/02/19 20:13 Dextrose (Dextrose 50%) 25 ml Q30M PRN IV Hypoglycemia 06/30/19 15:00 07/30/19 14:59 Dextrose (Dextrose 50%) 50 ml Q30M PRN IV Hypoglycemia 06/30/19 15:00 07/30/19 14:59 Dextrose/Sodium Chloride 1,000 ml @ 125 mls/hr Q8H IV 06/30/19 09:00 07/30/19 08:59 07/03/19 08:09 Diphenhydramine HCl (Benadryl) 25 mg Q6H PRN IVP Muscle Spasm 06/29/19 11:01 07/29/19 11:00 Epinephrine 1 mg/ Dextrose 250 ml @ 0 mls/hr Q24H IV 06/29/19 16:00 07/29/19 15:59 Epoetin Eric (Epoetin Eric(ESRD on dialysis)) 8,000 unit MON-MON-MON SUBQ 07/01/19 21:00 07/31/19 20:59 07/01/19 21:08 Famotidine (Pepcid I.v.) 20 mg Q12HR IVP 06/30/19 21:00 07/30/19 20:59 07/03/19 08:09 Fentanyl Citrate 2500 mcg/Sodium Chloride 250 ml @ 0 mls/hr Q24H IV 06/29/19 12:30 07/06/19 12:29 07/03/19 08:48 Hydralazine HCl (Apresoline) 10 mg Q2H PRN IV For High Blood Pressure 07/02/19 21:15 08/01/19 21:14 07/03/19 03:35 Hydromorphone HCl (Dilaudid) 0.5 mg Q3H PRN IVP Pain Score 1-3 06/29/19 11:02 07/06/19 11:01 Hydromorphone HCl (Dilaudid) 1 mg Q3H PRN IVP pain score 4-6 06/29/19 11:02 07/06/19 11:01 Hydromorphone HCl (Dilaudid) 2 mg Q3H PRN IVP pain score 7-10 06/29/19 11:02 07/06/19 11:01 Insulin Aspart (NovoLOG) BEFORE MEALS AND HS SUBQ 06/30/19 16:30 07/30/19 16:29 07/03/19 06:02 Lorazepam (Ativan 2mg/ml 1ml) 0.5 mg Q24HRS PRN IV Agitation 06/29/19 11:36 07/06/19 11:35 07/03/19 04:56 Lorazepam (Ativan 2mg/ml 1ml) 2 mg Q4H PRN IV For Anxiety 07/03/19 09:15 07/10/19 09:14 Methylprednisolone Sodium Succinate (Solu-MEDROL) 40 mg EVERY 8 HOURS IVP 06/30/19 22:00 07/29/19 13:59 07/03/19 05:59 Metoclopramide HCl (Reglan) 10 mg Q6H PRN IVP Nausea & Vomiting 06/29/19 11:01 07/29/19 11:00 Norepinephrine Bitartrate 8 mg/ Dextrose 508 ml @ 0 mls/hr Q24H IV 06/29/19 12:30 07/29/19 12:29 06/30/19 11:42 Ondansetron HCl (Zofran) 4 mg Q6H PRN IVP Nausea & Vomiting 06/29/19 11:01 07/29/19 11:00 Thiamine HCl 100 mg/Dextrose 56 ml @ 112 mls/hr DAILY IVPB 07/03/19 11:00 08/02/19 10:59 Vasopressin 100 units/Sodium Chloride 100 ml @ 2.4 mls/hr Q24H IV 06/29/19 14:15 07/29/19 14:14 06/30/19 15:40 Last 24 Hour Vital Signs Date Time Temp Pulse Resp B/P (MAP) Pulse Ox O2 Delivery O2 Flow Rate FiO2 07/03/19 09:30 59 12 165/84 (111) 100 07/03/19 09:18 58 18 158/94 (115) 100 07/03/19 09:00 58 18 158/94 (115) 100 07/03/19 08:48 18 Mechanical Ventilator 07/03/19 08:30 60 18 141/78 (99) 100 07/03/19 08:00 Mechanical Ventilator 07/03/19 08:00 98.0 64 18 161/82 (108) 100 07/03/19 08:00 61 07/03/19 08:00 30 07/03/19 07:30 65 20 173/100 (124) 100 07/03/19 07:26 69 19 30 35 07/03/19 07:00 20 Endotracheal Tube 30 07/03/19 07:00 65 19 175/90 (118) 99 07/03/19 06:30 100 19 150/80 (103) 99 07/03/19 06:00 101 19 172/100 (124) 99 07/03/19 06:00 20 Mechanical Ventilator 30 07/03/19 05:30 100 26 157/94 (115) 99 07/03/19 05:00 100 26 153/94 (113) 99 07/03/19 05:00 20 Mechanical Ventilator 30 07/03/19 04:37 127 25 30 35 07/03/19 04:30 107 26 180/101 (127) 99 07/03/19 04:00 35 07/03/19 04:00 98.2 133 26 146/82 (103) 99 07/03/19 04:00 52 07/03/19 04:00 19 Mechanical Ventilator 30 07/03/19 04:00 Mechanical Ventilator 07/03/19 03:35 178/91 07/03/19 03:30 70 18 172/92 (118) 100 07/03/19 03:09 80 18 30 35 07/03/19 03:00 20 Mechanical Ventilator 30 07/03/19 03:00 75 18 180/84 (116) 100 07/03/19 02:30 71 18 164/84 (110) 100 07/03/19 02:00 52 18 162/83 (109) 100 07/03/19 02:00 19 Mechanical Ventilator 30 07/03/19 01:30 55 18 162/83 (109) 100 07/03/19 01:29 49 18 30 35 07/03/19 01:02 22 Mechanical Ventilator 30 07/03/19 01:00 53 18 179/84 (115) 100 07/03/19 01:00 19 Mechanical Ventilator 30 07/03/19 00:30 50 18 170/101 (124) 100 07/03/19 00:00 Mechanical Ventilator 07/03/19 00:00 20 Mechanical Ventilator 30 07/03/19 00:00 98.2 50 18 161/84 (109) 100 07/03/19 00:00 50 07/02/19 23:30 49 18 145/92 (109) 100 07/02/19 23:00 19 Mechanical Ventilator 30 07/02/19 23:00 49 19 160/84 (109) 100 07/02/19 22:43 48 20 30 35 07/02/19 22:30 49 19 160/84 (109) 100 07/02/19 22:00 50 19 167/84 (111) 100 07/02/19 22:00 19 Mechanical Ventilator 30 07/02/19 21:30 50 19 156/90 (112) 100 07/02/19 21:29 51 18 30 35 07/02/19 21:00 19 Mechanical Ventilator 30 07/02/19 21:00 51 19 161/86 (111) 100 07/02/19 20:30 52 19 160/88 (112) 100 07/02/19 20:00 Mechanical Ventilator 07/02/19 20:00 52 07/02/19 20:00 35 07/02/19 20:00 18 Mechanical Ventilator 30 07/02/19 20:00 98.0 52 19 162/98 (119) 100 07/02/19 19:30 51 19 171/85 (113) 100 07/02/19 19:06 64 20 30 35 07/02/19 19:00 53 20 176/92 (120) 100 07/02/19 18:30 54 19 152/77 (102) 100 07/02/19 18:00 20 Mechanical Ventilator 07/02/19 18:00 52 19 154/77 (102) 100 07/02/19 17:30 50 20 154/77 (102) 99 07/02/19 17:30 50 21 166/88 (114) 100 07/02/19 17:25 108 22 35 07/02/19 17:00 20 Mechanical Ventilator 07/02/19 17:00 56 20 146/78 (100) 100 07/02/19 16:30 54 18 159/94 (115) 100 07/02/19 16:00 98.0 60 18 153/91 (111) 100 07/02/19 16:00 Mechanical Ventilator 07/02/19 16:00 18 Mechanical Ventilator 07/02/19 16:00 35 07/02/19 16:00 50 07/02/19 15:30 54 20 154/78 (103) 100 07/02/19 15:11 76 20 35 07/02/19 15:05 53 18 154/78 (103) 100 07/02/19 15:00 18 Mechanical Ventilator 07/02/19 14:30 54 20 154/84 (107) 100 07/02/19 14:00 20 Mechanical Ventilator 07/02/19 14:00 52 18 151/80 (103) 100 07/02/19 13:30 50 20 151/80 (103) 100 07/02/19 13:27 49 19 35 07/02/19 13:11 19 Mechanical Ventilator 07/02/19 13:00 18 Mechanical Ventilator 07/02/19 13:00 51 18 153/83 (106) 100 07/02/19 12:30 52 19 158/81 (106) 100 07/02/19 12:00 35 07/02/19 12:00 54 07/02/19 12:00 20 Mechanical Ventilator 07/02/19 12:00 Mechanical Ventilator 07/02/19 12:00 97.7 52 20 159/83 (108) 100 07/02/19 11:37 135/76 07/02/19 11:30 55 20 133/77 (95) 100 07/02/19 11:00 56 18 135/76 (95) 100 07/02/19 11:00 18 Mechanical Ventilator 07/02/19 10:46 57 19 35 07/02/19 10:30 55 18 152/78 (102) 99 07/02/19 10:00 20 Mechanical Ventilator 07/02/19 10:00 56 22 159/63 (95) 100 07/02/19 09:30 56 22 157/85 (109) 100 07/02/19 09:01 100 07/02/19 09:00 56 22 35 07/02/19 09:00 54 20 167/83 (111) 100 07/02/19 09:00 18 Mechanical Ventilator 07/02/19 08:30 98.3 55 18 157/85 (109) 100 07/02/19 08:00 Mechanical Ventilator 07/02/19 08:00 20 Mechanical Ventilator 07/02/19 08:00 98.3 53 18 164/86 (112) 100 07/02/19 08:00 35 07/02/19 08:00 54 07/02/19 07:30 62 20 173/67 (102) 100 07/02/19 07:29 56 19 35 35 07/02/19 07:00 16 Mechanical Ventilator 30 07/02/19 07:00 55 20 161/82 (108) 100 07/02/19 06:30 54 20 151/82 (105) 100 07/02/19 06:00 54 18 161/80 (107) 100 07/02/19 06:00 18 Mechanical Ventilator 30 07/02/19 05:30 54 18 152/80 (104) 100 07/02/19 05:00 20 Mechanical Ventilator 35 07/02/19 05:00 78 20 35 07/02/19 05:00 54 21 137/82 (100) 100 07/02/19 04:30 68 21 151/83 (105) 100 07/02/19 04:00 Mechanical Ventilator 07/02/19 04:00 98.4 68 21 151/83 (105) 100 07/02/19 04:00 35 07/02/19 04:00 20 Mechanical Ventilator 35 07/02/19 04:00 68 07/02/19 03:30 93 22 160/80 (106) 100 07/02/19 03:00 59 20 147/78 (101) 100 07/02/19 03:00 18 Mechanical Ventilator 35 07/02/19 02:48 60 20 35 07/02/19 02:30 59 19 142/79 (100) 100 07/02/19 02:00 64 19 158/84 (108) 100 07/02/19 02:00 18 Mechanical Ventilator 35 07/02/19 01:30 57 19 158/85 (109) 100 07/02/19 01:00 54 19 160/85 (110) 100 07/02/19 00:59 20 Mechanical Ventilator 35 07/02/19 00:50 63 18 35 07/02/19 00:30 55 19 154/85 (108) 100 07/02/19 00:00 Mechanical Ventilator 07/02/19 00:00 55 07/02/19 00:00 98.2 56 19 154/81 (105) 100 07/02/19 00:00 18 Mechanical Ventilator 35 07/02/19 00:00 35 07/01/19 23:30 56 19 158/85 (109) 100 07/01/19 23:00 62 18 145/88 (107) 100 07/01/19 23:00 18 Mechanical Ventilator 35 07/01/19 22:30 62 18 158/85 (109) 100 07/01/19 22:30 68 20 35 07/01/19 22:00 62 18 163/87 (112) 100 07/01/19 22:00 18 Mechanical Ventilator 35 07/01/19 21:30 64 18 160/88 (112) 100 07/01/19 21:00 18 Mechanical Ventilator 35 07/01/19 21:00 64 18 161/88 (112) 100 07/01/19 20:45 70 20 35 07/01/19 20:30 62 18 154/87 (109) 100 07/01/19 20:00 35 07/01/19 20:00 55 07/01/19 20:00 Mechanical Ventilator 07/01/19 20:00 98.4 55 18 154/55 (88) 100 07/01/19 20:00 18 Mechanical Ventilator 35 07/01/19 19:30 56 19 158/84 (108) 100 07/01/19 19:00 20 Mechanical Ventilator 35 07/01/19 19:00 60 20 160/91 (114) 100 07/01/19 18:57 58 20 35 07/01/19 18:30 67 22 166/89 (114) 98 07/01/19 18:00 53 18 154/94 (114) 100 07/01/19 18:00 18 Mechanical Ventilator 35 07/01/19 17:30 59 18 164/87 (112) 100 07/01/19 17:00 18 Mechanical Ventilator 35 07/01/19 17:00 54 18 168/88 (114) 100 07/01/19 16:52 53 20 35 07/01/19 16:30 98.5 54 20 161/90 (113) 100 07/01/19 16:00 53 18 152/86 (108) 100 07/01/19 16:00 35 07/01/19 16:00 53 07/01/19 16:00 18 Mechanical Ventilator 35 07/01/19 16:00 Mechanical Ventilator 07/01/19 15:30 54 19 154/82 (106) 100 07/01/19 15:00 55 18 145/95 (112) 100 07/01/19 15:00 18 Mechanical Ventilator 35 07/01/19 14:56 57 20 35 07/01/19 14:30 74 20 130/76 (94) 100 07/01/19 14:00 54 19 154/89 (110) 100 07/01/19 14:00 19 Mechanical Ventilator 35 07/01/19 13:30 54 19 158/86 (110) 100 07/01/19 13:00 56 19 150/100 (117) 100 07/01/19 13:00 19 Mechanical Ventilator 35 07/01/19 12:45 56 19 149/85 (106) 100 07/01/19 12:41 77 24 35 07/01/19 12:30 99.0 52 20 149/85 (106) 100 07/01/19 12:15 56 17 143/90 (107) 100 07/01/19 12:13 18 Mechanical Ventilator 35 07/01/19 12:00 35 07/01/19 12:00 Mechanical Ventilator 07/01/19 12:00 17 Mechanical Ventilator 35 07/01/19 12:00 62 07/01/19 12:00 56 17 148/76 (100) 100 07/01/19 11:45 59 18 139/81 (100) 100 07/01/19 11:30 56 18 121/71 (88) 100 07/01/19 11:15 58 18 131/79 (96) 100 07/01/19 11:00 18 Mechanical Ventilator 35 07/01/19 11:00 56 18 121/71 (88) 100 07/01/19 10:51 56 18 35 07/01/19 10:30 57 18 120/74 (89) 99 07/01/19 10:00 59 18 132/72 (92) 99 07/01/19 10:00 18 Mechanical Ventilator 35 Intake and Output 07/02/19 07/03/19 19:00 07:00 Intake Total 1720 ml 1990 ml Output Total 1250 ml 1440 ml Balance 470 ml 550 ml Intake IV Total 1720 ml 1990 ml Output Urine Total 1250 ml 1440 ml Labs Test 06/30/19 09:45 06/30/19 15:15 06/30/19 15:40 07/01/19 00:00 Arterial Blood pH 7.229 (7.350-7.450) 7.234 (7.350-7.450) Arterial Blood Partial Pressure CO2 38.9 mmHg (35.0-45.0) 34.8 mmHg (35.0-45.0) Arterial Blood Partial Pressure O2 125.4 mmHg (75.0-100.0) 73.8 mmHg (75.0-100.0) Arterial Blood HCO3 15.9 mmol/L (22.0-26.0) 14.4 mmol/L (22.0-26.0) Arterial Blood Oxygen Saturation 97.6 % (95-100) 93.3 % (95-100) Arterial Blood Base Excess -10.8 (-2-2) -12.1 (-2-2) Maxim Test Positive Positive Prothrombin Time 11.1 SEC (9.30-11.50) Prothromb Time International Ratio 1.0 (0.9-1.1) Activated Partial Thromboplast Time 27 SEC (23-33) Sodium Level 137 MMOL/L (136-145) Potassium Level 4.9 MMOL/L (3.5-5.1) Chloride Level 110 MMOL/L (98-107) Carbon Dioxide Level 18 MMOL/L (21-32) Anion Gap 9 mmol/L (5-15) Blood Urea Nitrogen 44 mg/dL (7-18) Creatinine 4.1 MG/DL (0.55-1.30) Estimat Glomerular Filtration Rate 13.5 mL/min (>60) Glucose Level 141 MG/DL (74-106) Calcium Level 6.3 MG/DL (8.5-10.1) HIV-1 Antibody Positive (Negative) HIV-2 Antibody Negative (Negative) HIV Note Hiv-1 positive (.) Test 07/01/19 03:45 07/02/19 02:32 07/02/19 12:15 07/03/19 05:55 White Blood Count 14.3 K/UL (4.8-10.8) 16.1 K/UL (4.8-10.8) 19.4 K/UL (4.8-10.8) Red Blood Count 2.90 M/UL (4.20-5.40) 2.88 M/UL (4.20-5.40) 3.47 M/UL (4.20-5.40) Hemoglobin 9.1 G/DL (12.0-16.0) 9.0 G/DL (12.0-16.0) 10.9 G/DL (12.0-16.0) Hematocrit 26.5 % (37.0-47.0) 26.0 % (37.0-47.0) 32.3 % (37.0-47.0) Mean Corpuscular Volume 91 FL (80-99) 90 FL (80-99) 93 FL (80-99) Mean Corpuscular Hemoglobin 31.4 PG (27.0-31.0) 31.3 PG (27.0-31.0) 31.5 PG (27.0-31.0) Mean Corpuscular Hemoglobin Concent 34.4 G/DL (32.0-36.0) 34.6 G/DL (32.0-36.0) 33.9 G/DL (32.0-36.0) Red Cell Distribution Width 14.2 % (11.6-14.8) 14.0 % (11.6-14.8) 15.2 % (11.6-14.8) Platelet Count 38 K/UL (150-450) 50 K/UL (150-450) 91 K/UL (150-450) Mean Platelet Volume 12.8 FL (6.5-10.1) 11.4 FL (6.5-10.1) 11.6 FL (6.5-10.1) Neutrophils (%) (Auto) % (45.0-75.0) % (45.0-75.0) % (45.0-75.0) Lymphocytes (%) (Auto) % (20.0-45.0) % (20.0-45.0) % (20.0-45.0) Monocytes (%) (Auto) % (1.0-10.0) % (1.0-10.0) % (1.0-10.0) Eosinophils (%) (Auto) % (0.0-3.0) % (0.0-3.0) % (0.0-3.0) Basophils (%) (Auto) % (0.0-2.0) % (0.0-2.0) % (0.0-2.0) Differential Total Cells Counted 100 100 100 Neutrophils % (Manual) 93 % (45-75) 94 % (45-75) 92 % (45-75) Lymphocytes % (Manual) 5 % (20-45) 4 % (20-45) 5 % (20-45) Monocytes % (Manual) 1 % (1-10) 2 % (1-10) 3 % (1-10) Eosinophils % (Manual) 0 % (0-3) 0 % (0-3) 0 % (0-3) Basophils % (Manual) 0 % (0-2) 0 % (0-2) 0 % (0-2) Band Neutrophils 1 % (0-8) 0 % (0-8) 0 % (0-8) Nucleated Red Blood Cells 1 /100 WBC Other Cell Type Pathologist review Platelet Estimate Decreased Decreased Decreased Platelet Morphology Normal Normal Red Blood Cell Morphology Normal Reticulocyte Count 1.6 % (0.5-2.0) Sodium Level 134 MMOL/L (136-145) 139 MMOL/L (136-145) 142 MMOL/L (136-145) Potassium Level 4.5 MMOL/L (3.5-5.1) 3.9 MMOL/L (3.5-5.1) 3.4 MMOL/L (3.5-5.1) Chloride Level 105 MMOL/L (98-107) 109 MMOL/L (98-107) 111 MMOL/L (98-107) Carbon Dioxide Level 18 MMOL/L (21-32) 19 MMOL/L (21-32) 18 MMOL/L (21-32) Anion Gap 11 mmol/L (5-15) 11 mmol/L (5-15) 13 mmol/L (5-15) Blood Urea Nitrogen 41 mg/dL (7-18) 44 mg/dL (7-18) 46 mg/dL (7-18) Creatinine 3.8 MG/DL (0.55-1.30) 3.5 MG/DL (0.55-1.30) 3.3 MG/DL (0.55-1.30) Estimat Glomerular Filtration Rate 14.7 mL/min (>60) 16.2 mL/min (>60) 17.2 mL/min (>60) Glucose Level 133 MG/DL (74-106) 139 MG/DL (74-106) 185 MG/DL (74-106) Calcium Level 6.4 MG/DL (8.5-10.1) 7.6 MG/DL (8.5-10.1) 8.0 MG/DL (8.5-10.1) Phosphorus Level 3.8 MG/DL (2.5-4.9) Iron Level 25 ug/dL (50-175) Total Iron Binding Capacity 170 ug/dL (250-450) Percent Iron Saturation 15 % (15-50) Unsaturated Iron Binding 145 ug/dL (112-346) Ferritin 1378 NG/ML (8-388) Total Bilirubin 0.3 MG/DL (0.2-1.0) Aspartate Amino Transf (AST/SGOT) 756 U/L (15-37) Alanine Aminotransferase (ALT/SGPT) 463 U/L (12-78) Alkaline Phosphatase 48 U/L (46-116) Total Protein 4.7 G/DL (6.4-8.2) Albumin 2.2 G/DL (3.4-5.0) Globulin 2.5 g/dL Albumin/Globulin Ratio 0.9 (1.0-2.7) Vitamin B12 Level 1705 PG/ML (193-986) Thyroid Stimulating Hormone (TSH) 0.825 uiU/mL (0.358-3.740) Hepatitis A IgM Antibody Negative (Negative) Hepatitis B Surface Antigen Negative (Negative) Hepatitis B Core IgM Antibody Negative (Negative) Hepatitis C Antibody <0.1 s/co ratio HIV (1&2) Antibody Rapid Preliminary positive Polychromasia 1+ 1+ Hypochromasia 1+ Prothrombin Time 10.5 SEC (9.30-11.50) Prothromb Time International Ratio 1.0 (0.9-1.1) Fibrinogen 309 mg/dL (200-400) Magnesium Level 1.5 MG/DL (1.8-2.4) Total Creatine Kinase 1218 U/L (26-308) Arterial Blood pH 7.384 (7.350-7.450) Arterial Blood Partial Pressure CO2 26.9 mmHg (35.0-45.0) Arterial Blood Partial Pressure O2 138.0 mmHg (75.0-100.0) Arterial Blood HCO3 15.7 mmol/L (22.0-26.0) Arterial Blood Oxygen Saturation 97.8 % (95-100) Arterial Blood Base Excess -8.2 (-2-2) Maxim Test Positive Giant Platelets Rare Anisocytosis 1+ Height (Feet): 5 Height (Inches): 4.00 Weight (Pounds): 168 Objective Physical Exam: Vitals: reviewed General Appearance: NAD HEENT: normocephalic, atraumatic ++ trach VENT Neck: non-tender, normal alignment Respiratory/Chest: normal breath sounds bilaterally Cardiovascular/Chest: normal peripheral pulses, normal rate Abdomen: normal bowel sounds, soft, nontender Extremities: normal range of motion Jordan Nguyen MD Jul 03, 2019 09:40
[2019-07-03] MEDS: Thiamine HCl 100 MG in D5W 55 ML IVPB SCH (11:13)
--- NOTE | 2019-07-03 12:47 | Nephrology Progress Note ---
Assessment/Plan Plan CBC, BMP today and tomorrow VBG today, will watch trend Continue Fentanyl drip and Resp therapy to reattempt weening. The patient is no longer anuric and is not acidotic. Her bicarb is up to 15.7, so no longer compensating. Creat is 3.3 (will watch). GFR normal. Will watch and repeat VBG and BMP and reassess need for HD tomorrow. Subjective Subjective The patient has a tracheostomy and is on a mechanical ventilator. She denies nausea, pain or general discomfort, by shaking and nodding her head. Objective Objective Last 24 Hour Vital Signs Date Time Temp Pulse Resp B/P (MAP) Pulse Ox O2 Delivery O2 Flow Rate FiO2 07/03/19 11:43 146/83 07/03/19 11:30 55 19 146/83 (104) 100 07/03/19 11:00 54 18 157/84 (108) 100 07/03/19 10:31 55 18 30 30 07/03/19 10:30 55 19 156/84 (108) 100 07/03/19 10:00 56 12 146/85 (105) 100 07/03/19 10:00 18 Mechanical Ventilator 07/03/19 09:30 59 12 165/84 (111) 100 07/03/19 09:20 100 07/03/19 09:20 59 16 30 30 07/03/19 09:18 58 18 158/94 (115) 100 07/03/19 09:00 18 Mechanical Ventilator 07/03/19 09:00 58 18 158/94 (115) 100 07/03/19 08:48 18 Mechanical Ventilator 07/03/19 08:30 60 18 141/78 (99) 100 07/03/19 08:09 18 Mechanical Ventilator 07/03/19 08:00 Mechanical Ventilator 07/03/19 08:00 98.0 64 18 161/82 (108) 100 07/03/19 08:00 61 07/03/19 08:00 30 07/03/19 07:30 65 20 173/100 (124) 100 07/03/19 07:26 69 19 30 07/03/19 07:00 20 Endotracheal Tube 30 07/03/19 07:00 65 19 175/90 (118) 99 07/03/19 06:30 100 19 150/80 (103) 99 07/03/19 06:00 101 19 172/100 (124) 99 07/03/19 06:00 20 Mechanical Ventilator 30 07/03/19 05:30 100 26 157/94 (115) 99 07/03/19 05:00 100 26 153/94 (113) 99 07/03/19 05:00 20 Mechanical Ventilator 30 07/03/19 04:37 127 25 30 35 07/03/19 04:30 107 26 180/101 (127) 99 07/03/19 04:00 35 07/03/19 04:00 98.2 133 26 146/82 (103) 99 07/03/19 04:00 52 07/03/19 04:00 19 Mechanical Ventilator 30 07/03/19 04:00 Mechanical Ventilator 07/03/19 03:35 178/91 07/03/19 03:30 70 18 172/92 (118) 100 07/03/19 03:09 80 18 30 35 07/03/19 03:00 20 Mechanical Ventilator 30 07/03/19 03:00 75 18 180/84 (116) 100 07/03/19 02:30 71 18 164/84 (110) 100 07/03/19 02:00 52 18 162/83 (109) 100 07/03/19 02:00 19 Mechanical Ventilator 30 07/03/19 01:30 55 18 162/83 (109) 100 07/03/19 01:29 49 18 30 35 07/03/19 01:02 22 Mechanical Ventilator 30 07/03/19 01:00 53 18 179/84 (115) 100 07/03/19 01:00 19 Mechanical Ventilator 30 07/03/19 00:30 50 18 170/101 (124) 100 07/03/19 00:00 Mechanical Ventilator 07/03/19 00:00 20 Mechanical Ventilator 30 07/03/19 00:00 98.2 50 18 161/84 (109) 100 07/03/19 00:00 50 07/02/19 23:30 49 18 145/92 (109) 100 07/02/19 23:00 19 Mechanical Ventilator 30 07/02/19 23:00 49 19 160/84 (109) 100 07/02/19 22:43 48 20 30 35 07/02/19 22:30 49 19 160/84 (109) 100 07/02/19 22:00 50 19 167/84 (111) 100 07/02/19 22:00 19 Mechanical Ventilator 30 07/02/19 21:30 50 19 156/90 (112) 100 07/02/19 21:29 51 18 30 35 07/02/19 21:00 19 Mechanical Ventilator 30 07/02/19 21:00 51 19 161/86 (111) 100 07/02/19 20:30 52 19 160/88 (112) 100 07/02/19 20:00 Mechanical Ventilator 07/02/19 20:00 52 07/02/19 20:00 35 07/02/19 20:00 18 Mechanical Ventilator 30 07/02/19 20:00 98.0 52 19 162/98 (119) 100 07/02/19 19:30 51 19 171/85 (113) 100 07/02/19 19:06 64 20 30 35 07/02/19 19:00 53 20 176/92 (120) 100 07/02/19 18:30 54 19 152/77 (102) 100 07/02/19 18:00 20 Mechanical Ventilator 07/02/19 18:00 52 19 154/77 (102) 100 07/02/19 17:30 50 20 154/77 (102) 99 07/02/19 17:30 50 21 166/88 (114) 100 07/02/19 17:25 108 22 35 07/02/19 17:00 20 Mechanical Ventilator 07/02/19 17:00 56 20 146/78 (100) 100 07/02/19 16:30 54 18 159/94 (115) 100 07/02/19 16:00 98.0 60 18 153/91 (111) 100 07/02/19 16:00 Mechanical Ventilator 07/02/19 16:00 18 Mechanical Ventilator 07/02/19 16:00 35 07/02/19 16:00 50 07/02/19 15:30 54 20 154/78 (103) 100 07/02/19 15:11 76 20 35 07/02/19 15:05 53 18 154/78 (103) 100 07/02/19 15:00 18 Mechanical Ventilator 07/02/19 14:30 54 20 154/84 (107) 100 07/02/19 14:00 20 Mechanical Ventilator 07/02/19 14:00 52 18 151/80 (103) 100 07/02/19 13:30 50 20 151/80 (103) 100 07/02/19 13:27 49 19 35 07/02/19 13:11 19 Mechanical Ventilator 07/02/19 13:00 18 Mechanical Ventilator 07/02/19 13:00 51 18 153/83 (106) 100 Intake and Output 07/02/19 07/03/19 19:00 07:00 Intake Total 1720 ml 1990 ml Output Total 1250 ml 1440 ml Balance 470 ml 550 ml Intake IV Total 1720 ml 1990 ml Output Urine Total 1250 ml 1440 ml Laboratory Tests 07/03/19 05:55: White Blood Count 19.4H, Red Blood Count 3.47L, Hemoglobin 10.9L, Hematocrit 32.3L, Mean Corpuscular Volume 93, Mean Corpuscular Hemoglobin 31.5H, Mean Corpuscular Hemoglobin Concent 33.9, Red Cell Distribution Width 15.2H, Platelet Count 91#L, Mean Platelet Volume 11.6H, Neutrophils (%) (Auto) , Lymphocytes (%) (Auto) , Monocytes (%) (Auto) , Eosinophils (%) (Auto) , Basophils (%) (Auto) , Differential Total Cells Counted 100, Neutrophils % ( Manual) 92H, Lymphocytes % (Manual) 5L, Monocytes % (Manual) 3, Eosinophils % ( Manual) 0, Basophils % (Manual) 0, Band Neutrophils 0, Platelet Estimate DecreasedL, Platelet Morphology , Giant Platelets Rare, Polychromasia 1+, Anisocytosis 1+, von Willebrand Factor (VIIIR) [Pending], LRODHA18 Activity [ Pending], Sodium Level 142, Potassium Level 3.4L, Chloride Level 111H, Carbon Dioxide Level 18L, Anion Gap 13, Blood Urea Nitrogen 46H, Creatinine 3.3H, Estimat Glomerular Filtration Rate 17.2, Glucose Level 185H, Calcium Level 8.0L Height (Feet): 5 Height (Inches): 4.00 Weight (Pounds): 168 Objective Ms. Burnett, was confused and agitated last night. She was started on a Fentanyl drip. At present she appears calm and in nad. She is easily awoken and remains alert and awake. Neuro: A&Ox4, [employer] intact CVS: RRR Lungs:clear, trach/vent HEENT: head atraumatic, PERRLA, nose/mouth pink-moist mucosa Abd: no ttp, BS + GI/: patel w/ yellow clear urine approx 500-600cc. Extremities: no edema, pop/pedal 2+ Skin: normal for ethnicity, no decub ulcers Sharee Alvarez N.P. Jul 03, 2019 12:47
--- NOTE | 2019-07-03 13:50 | Surgery Progress Note ---
Surgery Progress Note Subjective Additional Comments leukocytosis anemia plt low exam unchanged stable on vent Objective Last 24 Hour Vital Signs Date Time Temp Pulse Resp B/P (MAP) Pulse Ox O2 Delivery O2 Flow Rate FiO2 07/03/19 13:30 53 19 157/78 (104) 100 07/03/19 13:00 52 18 153/84 (107) 100 07/03/19 13:00 18 Mechanical Ventilator 07/03/19 12:40 54 18 30 07/03/19 12:30 54 18 162/85 (110) 100 07/03/19 12:00 51 07/03/19 12:00 98.2 52 18 157/83 (107) 100 07/03/19 12:00 30 07/03/19 12:00 18 Mechanical Ventilator 07/03/19 12:00 Mechanical Ventilator 07/03/19 11:43 146/83 07/03/19 11:30 55 19 146/83 (104) 100 07/03/19 11:00 18 Mechanical Ventilator 07/03/19 11:00 54 18 157/84 (108) 100 07/03/19 10:31 55 18 30 30 07/03/19 10:30 55 19 156/84 (108) 100 07/03/19 10:00 56 12 146/85 (105) 100 07/03/19 10:00 18 Mechanical Ventilator 07/03/19 09:30 59 12 165/84 (111) 100 07/03/19 09:20 100 07/03/19 09:20 59 16 30 30 07/03/19 09:18 58 18 158/94 (115) 100 07/03/19 09:00 18 Mechanical Ventilator 07/03/19 09:00 58 18 158/94 (115) 100 07/03/19 08:48 18 Mechanical Ventilator 07/03/19 08:30 60 18 141/78 (99) 100 07/03/19 08:09 18 Mechanical Ventilator 07/03/19 08:00 Mechanical Ventilator 07/03/19 08:00 98.0 64 18 161/82 (108) 100 07/03/19 08:00 61 07/03/19 08:00 30 07/03/19 07:30 65 20 173/100 (124) 100 07/03/19 07:26 69 19 30 07/03/19 07:00 20 Endotracheal Tube 30 07/03/19 07:00 65 19 175/90 (118) 99 07/03/19 06:30 100 19 150/80 (103) 99 07/03/19 06:00 101 19 172/100 (124) 99 07/03/19 06:00 20 Mechanical Ventilator 30 07/03/19 05:30 100 26 157/94 (115) 99 07/03/19 05:00 100 26 153/94 (113) 99 07/03/19 05:00 20 Mechanical Ventilator 30 07/03/19 04:37 127 25 30 35 07/03/19 04:30 107 26 180/101 (127) 99 07/03/19 04:00 35 07/03/19 04:00 98.2 133 26 146/82 (103) 99 07/03/19 04:00 52 07/03/19 04:00 19 Mechanical Ventilator 30 07/03/19 04:00 Mechanical Ventilator 07/03/19 03:35 178/91 07/03/19 03:30 70 18 172/92 (118) 100 07/03/19 03:09 80 18 30 35 07/03/19 03:00 20 Mechanical Ventilator 30 07/03/19 03:00 75 18 180/84 (116) 100 07/03/19 02:30 71 18 164/84 (110) 100 07/03/19 02:00 52 18 162/83 (109) 100 07/03/19 02:00 19 Mechanical Ventilator 30 07/03/19 01:30 55 18 162/83 (109) 100 07/03/19 01:29 49 18 30 35 07/03/19 01:02 22 Mechanical Ventilator 30 07/03/19 01:00 53 18 179/84 (115) 100 07/03/19 01:00 19 Mechanical Ventilator 30 07/03/19 00:30 50 18 170/101 (124) 100 07/03/19 00:00 Mechanical Ventilator 07/03/19 00:00 20 Mechanical Ventilator 30 07/03/19 00:00 98.2 50 18 161/84 (109) 100 07/03/19 00:00 50 07/02/19 23:30 49 18 145/92 (109) 100 07/02/19 23:00 19 Mechanical Ventilator 30 07/02/19 23:00 49 19 160/84 (109) 100 07/02/19 22:43 48 20 30 35 07/02/19 22:30 49 19 160/84 (109) 100 07/02/19 22:00 50 19 167/84 (111) 100 07/02/19 22:00 19 Mechanical Ventilator 30 07/02/19 21:30 50 19 156/90 (112) 100 07/02/19 21:29 51 18 30 35 07/02/19 21:00 19 Mechanical Ventilator 30 07/02/19 21:00 51 19 161/86 (111) 100 07/02/19 20:30 52 19 160/88 (112) 100 07/02/19 20:00 Mechanical Ventilator 07/02/19 20:00 52 07/02/19 20:00 35 07/02/19 20:00 18 Mechanical Ventilator 30 07/02/19 20:00 98.0 52 19 162/98 (119) 100 07/02/19 19:30 51 19 171/85 (113) 100 07/02/19 19:06 64 20 30 35 07/02/19 19:00 53 20 176/92 (120) 100 07/02/19 18:30 54 19 152/77 (102) 100 07/02/19 18:00 20 Mechanical Ventilator 07/02/19 18:00 52 19 154/77 (102) 100 07/02/19 17:30 50 20 154/77 (102) 99 07/02/19 17:30 50 21 166/88 (114) 100 07/02/19 17:25 108 22 35 07/02/19 17:00 20 Mechanical Ventilator 07/02/19 17:00 56 20 146/78 (100) 100 07/02/19 16:30 54 18 159/94 (115) 100 07/02/19 16:00 98.0 60 18 153/91 (111) 100 07/02/19 16:00 Mechanical Ventilator 07/02/19 16:00 18 Mechanical Ventilator 07/02/19 16:00 35 07/02/19 16:00 50 07/02/19 15:30 54 20 154/78 (103) 100 07/02/19 15:11 76 20 35 07/02/19 15:05 53 18 154/78 (103) 100 07/02/19 15:00 18 Mechanical Ventilator 07/02/19 14:30 54 20 154/84 (107) 100 07/02/19 14:00 20 Mechanical Ventilator 07/02/19 14:00 52 18 151/80 (103) 100 I&O Intake and Output 07/02/19 07/03/19 19:00 07:00 Intake Total 1720 ml 1990 ml Output Total 1250 ml 1440 ml Balance 470 ml 550 ml Intake IV Total 1720 ml 1990 ml Output Urine Total 1250 ml 1440 ml Dressing: dry Wound: other Drains: other Cardiovascular: RSR Respiratory: clear Abdomen: soft, present bowel sounds, non-distended Extremities: no cyanosis Laboratory Tests Test 07/03/19 05:55 07/03/19 12:40 White Blood Count 19.4 K/UL (4.8-10.8) H Red Blood Count 3.47 M/UL (4.20-5.40) L Hemoglobin 10.9 G/DL (12.0-16.0) L Hematocrit 32.3 % (37.0-47.0) L Mean Corpuscular Volume 93 FL (80-99) Mean Corpuscular Hemoglobin 31.5 PG (27.0-31.0) H Mean Corpuscular Hemoglobin Concent 33.9 G/DL (32.0-36.0) Red Cell Distribution Width 15.2 % (11.6-14.8) H Platelet Count 91 K/UL (150-450) #L Mean Platelet Volume 11.6 FL (6.5-10.1) H Neutrophils (%) (Auto) % (45.0-75.0) Lymphocytes (%) (Auto) % (20.0-45.0) Monocytes (%) (Auto) % (1.0-10.0) Eosinophils (%) (Auto) % (0.0-3.0) Basophils (%) (Auto) % (0.0-2.0) Differential Total Cells Counted 100 Neutrophils % (Manual) 92 % (45-75) H Lymphocytes % (Manual) 5 % (20-45) L Monocytes % (Manual) 3 % (1-10) Eosinophils % (Manual) 0 % (0-3) Basophils % (Manual) 0 % (0-2) Band Neutrophils 0 % (0-8) Platelet Estimate Decreased L Platelet Morphology Giant Platelets Rare Polychromasia 1+ Anisocytosis 1+ von Willebrand Factor (VIIIR) Pending [id number] Activity Pending Sodium Level 142 MMOL/L (136-145) Potassium Level 3.4 MMOL/L (3.5-5.1) L Chloride Level 111 MMOL/L (98-107) H Carbon Dioxide Level 18 MMOL/L (21-32) L Anion Gap 13 mmol/L (5-15) Blood Urea Nitrogen 46 mg/dL (7-18) H Creatinine 3.3 MG/DL (0.55-1.30) H Estimat Glomerular Filtration Rate 17.2 mL/min (>60) Glucose Level 185 MG/DL (74-106) H Calcium Level 8.0 MG/DL (8.5-10.1) L Venous Blood pH 7.334 Venous Blood Partial Pressure CO2 23.6 Venous Blood Partial Pressure O2 < 45.3 Venous Blood HCO3 12.3 Venous Blood Total Carbon Dioxide Pending Venous Bld O2 Saturation (Measured) Pending Venous Blood Oxygen Saturation 77.6 Venous Blood Base Excess -12.4 Methemoglobin Pending Sodium (Blood Gas) Pending Plan Problems: (1) Angioedema Assessment & Plan: airway trach as per reports trach stable currently sutures in place dressings changed HD line in place and noted will follow with recs thank you (2) Tracheostomy hemorrhage Assessment & Plan: stable dressings dry will monitor (3) Tracheostomy complication George Cavazos Jul 03, 2019 13:50
[2019-07-03] MEDS: Vasopressin 100 UNITS in NS 95 ML IV SCH (14:01)
[2019-07-03] MEDS: EPINEPHrine 1mg/1ml Amp 1 MG in D5W 249 ML IV SCH (14:22)
--- NOTE | 2019-07-03 14:26 | Cardiac Electrophysiology PN ---
Assessment/Plan Assessment/Plan 1. Angioedema, s/p emergency tracheostomy on the Vent 2. Severe Hypotension , Now off pressors. 3. Hx of Hypertension 4. Cocaine abuse 5. ARF . Last HD and no further scheduled 6. Anemia partial blood loss during tracheostomy DW RN Subjective Subjective Intubated via tracheostomy. Off Pressors. Got agitated today and on fentanyl drip Objective Last 24 Hour Vital Signs Date Time Temp Pulse Resp B/P (MAP) Pulse Ox O2 Delivery O2 Flow Rate FiO2 07/03/19 14:00 20 Mechanical Ventilator 07/03/19 14:00 54 18 161/82 (108) 100 07/03/19 13:30 53 19 157/78 (104) 100 07/03/19 13:00 52 18 153/84 (107) 100 07/03/19 13:00 18 Mechanical Ventilator 07/03/19 12:40 54 18 30 07/03/19 12:30 54 18 162/85 (110) 100 07/03/19 12:00 51 07/03/19 12:00 98.2 52 18 157/83 (107) 100 07/03/19 12:00 30 07/03/19 12:00 18 Mechanical Ventilator 07/03/19 12:00 Mechanical Ventilator 07/03/19 11:43 146/83 07/03/19 11:30 55 19 146/83 (104) 100 07/03/19 11:00 18 Mechanical Ventilator 07/03/19 11:00 54 18 157/84 (108) 100 07/03/19 10:31 55 18 30 30 07/03/19 10:30 55 19 156/84 (108) 100 07/03/19 10:00 56 12 146/85 (105) 100 07/03/19 10:00 18 Mechanical Ventilator 07/03/19 09:30 59 12 165/84 (111) 100 07/03/19 09:20 100 07/03/19 09:20 59 16 30 30 07/03/19 09:18 58 18 158/94 (115) 100 07/03/19 09:00 18 Mechanical Ventilator 07/03/19 09:00 58 18 158/94 (115) 100 07/03/19 08:48 18 Mechanical Ventilator 07/03/19 08:30 60 18 141/78 (99) 100 07/03/19 08:09 18 Mechanical Ventilator 07/03/19 08:00 Mechanical Ventilator 07/03/19 08:00 98.0 64 18 161/82 (108) 100 07/03/19 08:00 61 07/03/19 08:00 30 07/03/19 07:30 65 20 173/100 (124) 100 07/03/19 07:26 69 19 30 07/03/19 07:00 20 Endotracheal Tube 30 07/03/19 07:00 65 19 175/90 (118) 99 07/03/19 06:30 100 19 150/80 (103) 99 07/03/19 06:00 101 19 172/100 (124) 99 07/03/19 06:00 20 Mechanical Ventilator 30 07/03/19 05:30 100 26 157/94 (115) 99 07/03/19 05:00 100 26 153/94 (113) 99 07/03/19 05:00 20 Mechanical Ventilator 30 07/03/19 04:37 127 25 30 35 07/03/19 04:30 107 26 180/101 (127) 99 07/03/19 04:00 35 07/03/19 04:00 98.2 133 26 146/82 (103) 99 07/03/19 04:00 52 07/03/19 04:00 19 Mechanical Ventilator 30 07/03/19 04:00 Mechanical Ventilator 07/03/19 03:35 178/91 07/03/19 03:30 70 18 172/92 (118) 100 07/03/19 03:09 80 18 30 35 07/03/19 03:00 20 Mechanical Ventilator 30 07/03/19 03:00 75 18 180/84 (116) 100 07/03/19 02:30 71 18 164/84 (110) 100 07/03/19 02:00 52 18 162/83 (109) 100 07/03/19 02:00 19 Mechanical Ventilator 30 07/03/19 01:30 55 18 162/83 (109) 100 07/03/19 01:29 49 18 30 35 07/03/19 01:02 22 Mechanical Ventilator 30 07/03/19 01:00 53 18 179/84 (115) 100 07/03/19 01:00 19 Mechanical Ventilator 30 07/03/19 00:30 50 18 170/101 (124) 100 8/21/19 00:00 Mechanical Ventilator 07/03/19 00:00 20 Mechanical Ventilator 30 07/03/19 00:00 98.2 50 18 161/84 (109) 100 07/03/19 00:00 50 07/02/19 23:30 49 18 145/92 (109) 100 07/02/19 23:00 19 Mechanical Ventilator 30 07/02/19 23:00 49 19 160/84 (109) 100 07/02/19 22:43 48 20 30 35 07/02/19 22:30 49 19 160/84 (109) 100 07/02/19 22:00 50 19 167/84 (111) 100 07/02/19 22:00 19 Mechanical Ventilator 30 07/02/19 21:30 50 19 156/90 (112) 100 07/02/19 21:29 51 18 30 35 07/02/19 21:00 19 Mechanical Ventilator 30 07/02/19 21:00 51 19 161/86 (111) 100 07/02/19 20:30 52 19 160/88 (112) 100 07/02/19 20:00 Mechanical Ventilator 07/02/19 20:00 52 07/02/19 20:00 35 07/02/19 20:00 18 Mechanical Ventilator 30 07/02/19 20:00 98.0 52 19 162/98 (119) 100 07/02/19 19:30 51 19 171/85 (113) 100 07/02/19 19:06 64 20 30 35 07/02/19 19:00 53 20 176/92 (120) 100 07/02/19 18:30 54 19 152/77 (102) 100 07/02/19 18:00 20 Mechanical Ventilator 07/02/19 18:00 52 19 154/77 (102) 100 07/02/19 17:30 50 20 154/77 (102) 99 07/02/19 17:30 50 21 166/88 (114) 100 07/02/19 17:25 108 22 35 07/02/19 17:00 20 Mechanical Ventilator 07/02/19 17:00 56 20 146/78 (100) 100 07/02/19 16:30 54 18 159/94 (115) 100 07/02/19 16:00 98.0 60 18 153/91 (111) 100 07/02/19 16:00 Mechanical Ventilator 07/02/19 16:00 18 Mechanical Ventilator 07/02/19 16:00 35 07/02/19 16:00 50 07/02/19 15:30 54 20 154/78 (103) 100 07/02/19 15:11 76 20 35 07/02/19 15:05 53 18 154/78 (103) 100 07/02/19 15:00 18 Mechanical Ventilator 07/02/19 14:30 54 20 154/84 (107) 100 Intake and Output 07/02/19 07/03/19 19:00 07:00 Intake Total 1720 ml 1990 ml Output Total 1250 ml 1440 ml Balance 470 ml 550 ml Intake IV Total 1720 ml 1990 ml Output Urine Total 1250 ml 1440 ml Laboratory Tests Test 07/03/19 05:55 07/03/19 12:40 White Blood Count 19.4 K/UL (4.8-10.8) H Red Blood Count 3.47 M/UL (4.20-5.40) L Hemoglobin 10.9 G/DL (12.0-16.0) L Hematocrit 32.3 % (37.0-47.0) L Mean Corpuscular Volume 93 FL (80-99) Mean Corpuscular Hemoglobin 31.5 PG (27.0-31.0) H Mean Corpuscular Hemoglobin Concent 33.9 G/DL (32.0-36.0) Red Cell Distribution Width 15.2 % (11.6-14.8) H Platelet Count 91 K/UL (150-450) #L Mean Platelet Volume 11.6 FL (6.5-10.1) H Neutrophils (%) (Auto) % (45.0-75.0) Lymphocytes (%) (Auto) % (20.0-45.0) Monocytes (%) (Auto) % (1.0-10.0) Eosinophils (%) (Auto) % (0.0-3.0) Basophils (%) (Auto) % (0.0-2.0) Differential Total Cells Counted 100 Neutrophils % (Manual) 92 % (45-75) H Lymphocytes % (Manual) 5 % (20-45) L Monocytes % (Manual) 3 % (1-10) Eosinophils % (Manual) 0 % (0-3) Basophils % (Manual) 0 % (0-2) Band Neutrophils 0 % (0-8) Platelet Estimate Decreased L Platelet Morphology Giant Platelets Rare Polychromasia 1+ Anisocytosis 1+ von Willebrand Factor (VIIIR) Pending [id number] Activity Pending Sodium Level 142 MMOL/L (136-145) Potassium Level 3.4 MMOL/L (3.5-5.1) L Chloride Level 111 MMOL/L (98-107) H Carbon Dioxide Level 18 MMOL/L (21-32) L Anion Gap 13 mmol/L (5-15) Blood Urea Nitrogen 46 mg/dL (7-18) H Creatinine 3.3 MG/DL (0.55-1.30) H Estimat Glomerular Filtration Rate 17.2 mL/min (>60) Glucose Level 185 MG/DL (74-106) H Calcium Level 8.0 MG/DL (8.5-10.1) L Venous Blood pH 7.334 Venous Blood Partial Pressure CO2 23.6 Venous Blood Partial Pressure O2 < 45.3 Venous Blood HCO3 12.3 Venous Blood Total Carbon Dioxide Pending Venous Bld O2 Saturation (Measured) Pending Venous Blood Oxygen Saturation 77.6 Venous Blood Base Excess -12.4 Methemoglobin Pending Sodium (Blood Gas) Pending Objective HEENT: Tracheostomy in place LUNGS: Coarse rhonchi CVS: RRR ABDOMEN: Obese EXT: No edema. Left groin Jeison Catheter Giles Rodarte MD Jul 03, 2019 14:26
--- NOTE | 2019-07-03 16:26 | General Progress Note ---
Assessment/Plan Status: stable, progressing Assessment/Plan: Assessment - Angioedema, s/p emergency trach - dysphagia, did not pass swallow - Thrombocytopenia - HIV (+) - Drug abuse Recommendations - Will hold off on NGT/OGT - re-evaluate swallow function tomorrow - Monitor platelets Subjective Allergies: Coded Allergies: No Known Allergies (Unverified , 06/29/19) Subjective Feels OK did not pass ST test again today more confused Objective Last 24 Hour Vital Signs Date Time Temp Pulse Resp B/P (MAP) Pulse Ox O2 Delivery O2 Flow Rate FiO2 07/03/19 16:00 137 07/03/19 16:00 Mechanical Ventilator 07/03/19 16:00 18 Mechanical Ventilator 07/03/19 16:00 132 25 166/86 (112) 99 07/03/19 16:00 30 07/03/19 15:30 62 24 144/75 (98) 100 07/03/19 15:23 172/92 07/03/19 15:00 54 18 172/92 (118) 100 07/03/19 15:00 20 Mechanical Ventilator 07/03/19 14:43 53 19 30 07/03/19 14:30 54 20 160/86 (110) 100 07/03/19 14:00 20 Mechanical Ventilator 07/03/19 14:00 54 18 161/82 (108) 100 07/03/19 13:30 53 19 157/78 (104) 100 07/03/19 13:00 52 18 153/84 (107) 100 07/03/19 13:00 18 Mechanical Ventilator 07/03/19 12:40 54 18 30 07/03/19 12:30 54 18 162/85 (110) 100 07/03/19 12:00 51 07/03/19 12:00 98.2 52 18 157/83 (107) 100 07/03/19 12:00 30 07/03/19 12:00 18 Mechanical Ventilator 07/03/19 12:00 Mechanical Ventilator 07/03/19 11:43 146/83 07/03/19 11:30 55 19 146/83 (104) 100 07/03/19 11:00 18 Mechanical Ventilator 07/03/19 11:00 54 18 157/84 (108) 100 07/03/19 10:31 55 18 30 30 07/03/19 10:30 55 19 156/84 (108) 100 07/03/19 10:00 56 12 146/85 (105) 100 07/03/19 10:00 18 Mechanical Ventilator 07/03/19 09:30 59 12 165/84 (111) 100 07/03/19 09:20 100 07/03/19 09:20 59 16 30 30 07/03/19 09:18 58 18 158/94 (115) 100 07/03/19 09:00 18 Mechanical Ventilator 07/03/19 09:00 58 18 158/94 (115) 100 07/03/19 08:48 18 Mechanical Ventilator 07/03/19 08:30 60 18 141/78 (99) 100 07/03/19 08:09 18 Mechanical Ventilator 07/03/19 08:00 Mechanical Ventilator 07/03/19 08:00 98.0 64 18 161/82 (108) 100 07/03/19 08:00 61 07/03/19 08:00 30 07/03/19 07:30 65 20 173/100 (124) 100 07/03/19 07:26 69 19 30 07/03/19 07:00 20 Endotracheal Tube 30 07/03/19 07:00 65 19 175/90 (118) 99 07/03/19 06:30 100 19 150/80 (103) 99 07/03/19 06:00 101 19 172/100 (124) 99 07/03/19 06:00 20 Mechanical Ventilator 30 07/03/19 05:30 100 26 157/94 (115) 99 07/03/19 05:00 100 26 153/94 (113) 99 07/03/19 05:00 20 Mechanical Ventilator 30 07/03/19 04:37 127 25 30 35 07/03/19 04:30 107 26 180/101 (127) 99 07/03/19 04:00 35 07/03/19 04:00 98.2 133 26 146/82 (103) 99 07/03/19 04:00 52 07/03/19 04:00 19 Mechanical Ventilator 30 07/03/19 04:00 Mechanical Ventilator 07/03/19 03:35 178/91 07/03/19 03:30 70 18 172/92 (118) 100 07/03/19 03:09 80 18 30 35 07/03/19 03:00 20 Mechanical Ventilator 30 07/03/19 03:00 75 18 180/84 (116) 100 07/03/19 02:30 71 18 164/84 (110) 100 07/03/19 02:00 52 18 162/83 (109) 100 07/03/19 02:00 19 Mechanical Ventilator 30 07/03/19 01:30 55 18 162/83 (109) 100 07/03/19 01:29 49 18 30 35 07/03/19 01:02 22 Mechanical Ventilator 30 07/03/19 01:00 53 18 179/84 (115) 100 07/03/19 01:00 19 Mechanical Ventilator 30 07/03/19 00:30 50 18 170/101 (124) 100 07/03/19 00:00 Mechanical Ventilator 07/03/19 00:00 20 Mechanical Ventilator 30 07/03/19 00:00 98.2 50 18 161/84 (109) 100 07/03/19 00:00 50 07/02/19 23:30 49 18 145/92 (109) 100 07/02/19 23:00 19 Mechanical Ventilator 30 07/02/19 23:00 49 19 160/84 (109) 100 07/02/19 22:43 48 20 30 35 07/02/19 22:30 49 19 160/84 (109) 100 07/02/19 22:00 50 19 167/84 (111) 100 07/02/19 22:00 19 Mechanical Ventilator 30 07/02/19 21:30 50 19 156/90 (112) 100 07/02/19 21:29 51 18 30 35 07/02/19 21:00 19 Mechanical Ventilator 30 07/02/19 21:00 51 19 161/86 (111) 100 07/02/19 20:30 52 19 160/88 (112) 100 07/02/19 20:00 Mechanical Ventilator 07/02/19 20:00 52 07/02/19 20:00 35 07/02/19 20:00 18 Mechanical Ventilator 30 07/02/19 20:00 98.0 52 19 162/98 (119) 100 07/02/19 19:30 51 19 171/85 (113) 100 07/02/19 19:06 64 20 30 35 07/02/19 19:00 53 20 176/92 (120) 100 07/02/19 18:30 54 19 152/77 (102) 100 07/02/19 18:00 20 Mechanical Ventilator 07/02/19 18:00 52 19 154/77 (102) 100 07/02/19 17:30 50 20 154/77 (102) 99 07/02/19 17:30 50 21 166/88 (114) 100 07/02/19 17:25 108 22 35 07/02/19 17:00 20 Mechanical Ventilator 07/02/19 17:00 56 20 146/78 (100) 100 07/02/19 16:30 54 18 159/94 (115) 100 Intake and Output 07/02/19 07/03/19 19:00 07:00 Intake Total 1720 ml 1990 ml Output Total 1250 ml 1440 ml Balance 470 ml 550 ml Intake IV Total 1720 ml 1990 ml Output Urine Total 1250 ml 1440 ml Laboratory Tests 07/03/19 05:55: White Blood Count 19.4H, Red Blood Count 3.47L, Hemoglobin 10.9L, Hematocrit 32.3L, Mean Corpuscular Volume 93, Mean Corpuscular Hemoglobin 31.5H, Mean Corpuscular Hemoglobin Concent 33.9, Red Cell Distribution Width 15.2H, Platelet Count 91#L, Mean Platelet Volume 11.6H, Neutrophils (%) (Auto) , Lymphocytes (%) (Auto) , Monocytes (%) (Auto) , Eosinophils (%) (Auto) , Basophils (%) (Auto) , Differential Total Cells Counted 100, Neutrophils % ( Manual) 92H, Lymphocytes % (Manual) 5L, Monocytes % (Manual) 3, Eosinophils % ( Manual) 0, Basophils % (Manual) 0, Band Neutrophils 0, Platelet Estimate DecreasedL, Platelet Morphology , Giant Platelets Rare, Polychromasia 1+, Anisocytosis 1+, von Willebrand Factor (VIIIR) [Pending], [id number] Activity [ Pending], Sodium Level 142, Potassium Level 3.4L, Chloride Level 111H, Carbon Dioxide Level 18L, Anion Gap 13, Blood Urea Nitrogen 46H, Creatinine 3.3H, Estimat Glomerular Filtration Rate 17.2, Glucose Level 185H, Calcium Level 8.0L 07/03/19 12:40: Venous Blood pH 7.334, Venous Blood Partial Pressure CO2 23.6, Venous Blood Partial Pressure O2 < 45.3, Venous Blood HCO3 12.3, Venous Blood Total Carbon Dioxide [Pending], Venous Bld O2 Saturation (Measured) [Pending], Venous Blood Oxygen Saturation 77.6, Venous Blood Base Excess -12.4, Methemoglobin [Pending] , Sodium (Blood Gas) [Pending] Height (Feet): 5 Height (Inches): 4.00 Weight (Pounds): 168 Objective WDWN AA woman NCAT (+) trach Coarse BS RR abd soft no edema Elisabeth Sommers MD Jul 03, 2019 16:26
--- NOTE | 2019-07-03 17:37 | Pulmonolgy Critical Care Note ---
Critical Care - Asmt/Plan Assessment/Plan: Pulmonary CCM Progress Note Patient is a 59-year-old female admitted with acute airway compromise complicating Angioedema, she has a history of hypertension. Presented with a severe allergic reaction. She woke up 2 hours prior to arrival with her tongue being swollen. S/p 4 unit transfusion on day of admission - post OR was hypotensive - had EBL 2000ml, pressors weaned Oliguric, Renal following, renal function improving, required HD Allergies: No Known Allergies Past Medical History: Hypertension All Other Systems: negative except mentioned in HPI Physical Exam Vital signs noted, on ACV via tracheostomy General Appearance: Mildly sedated, interactive Head: normocephalic, atraumatic Eyes: bilateral eye PERRL, bilateral eye EOMI ENT: Mosit mm. tracheostomy site, no active bleeding Neck: swollen, no LN Respiratory: chest non-tender, lungs clear, normal breath sounds Cardiovascular: Normal HS1, HS2, regular rate, rhythm, no murmur Gastrointestinal: normal bowel sounds, non tender, no mass, no organomegaly, no bruit, non-distended Musculoskeletal: back normal, gait/station normal, normal range of motion Neurological: No focal signs, moving all limbs, PERRL Impression: Angioedema s/p Emergent Tracheostomy Severe Hypotension associated with acute blood loss - EBL 2000ml ARF, HD requiring Previous Hypertension Cocaine use previously Plan HD per Renal Cardiology following Wean as tolerated ISS Monitor labs PRN sedation SCD Wean FIO2 PPX Continue current management EKG: tachycardiac: NSR, no acute ST changes Chest X-Ray: no consolidation, no effusion, no pneumothorax, no acute cardiopulmonary disease, tracheostomy position appropriate Critical Care - Objective Last 24 Hour Vital Signs Date Time Temp Pulse Resp B/P (MAP) Pulse Ox O2 Delivery O2 Flow Rate FiO2 07/03/19 17:17 22 Mechanical Ventilator 07/03/19 17:00 78 20 134/81 (98) 98 07/03/19 17:00 18 Mechanical Ventilator 07/03/19 16:30 91 20 144/79 (100) 98 07/03/19 16:00 137 07/03/19 16:00 Mechanical Ventilator 07/03/19 16:00 18 Mechanical Ventilator 07/03/19 16:00 98.2 132 25 166/86 (112) 99 07/03/19 16:00 30 07/03/19 15:30 62 24 144/75 (98) 100 07/03/19 15:23 172/92 07/03/19 15:00 54 18 172/92 (118) 100 07/03/19 15:00 20 Mechanical Ventilator 07/03/19 14:43 53 19 30 07/03/19 14:30 54 20 160/86 (110) 100 07/03/19 14:00 20 Mechanical Ventilator 07/03/19 14:00 54 18 161/82 (108) 100 07/03/19 13:30 53 19 157/78 (104) 100 07/03/19 13:00 52 18 153/84 (107) 100 07/03/19 13:00 18 Mechanical Ventilator 07/03/19 12:40 54 18 30 07/03/19 12:30 54 18 162/85 (110) 100 07/03/19 12:00 51 07/03/19 12:00 98.2 52 18 157/83 (107) 100 07/03/19 12:00 30 07/03/19 12:00 18 Mechanical Ventilator 07/03/19 12:00 Mechanical Ventilator 07/03/19 11:43 146/83 07/03/19 11:30 55 19 146/83 (104) 100 07/03/19 11:00 18 Mechanical Ventilator 07/03/19 11:00 54 18 157/84 (108) 100 07/03/19 10:31 55 18 30 30 07/03/19 10:30 55 19 156/84 (108) 100 07/03/19 10:00 56 12 146/85 (105) 100 07/03/19 10:00 18 Mechanical Ventilator 07/03/19 09:30 59 12 165/84 (111) 100 07/03/19 09:20 100 07/03/19 09:20 59 16 30 30 07/03/19 09:18 58 18 158/94 (115) 100 07/03/19 09:00 18 Mechanical Ventilator 07/03/19 09:00 58 18 158/94 (115) 100 07/03/19 08:48 18 Mechanical Ventilator 07/03/19 08:30 60 18 141/78 (99) 100 07/03/19 08:09 18 Mechanical Ventilator 07/03/19 08:00 Mechanical Ventilator 07/03/19 08:00 98.0 64 18 161/82 (108) 100 07/03/19 08:00 61 07/03/19 08:00 30 07/03/19 07:30 65 20 173/100 (124) 100 07/03/19 07:26 69 19 30 07/03/19 07:00 20 Endotracheal Tube 30 07/03/19 07:00 65 19 175/90 (118) 99 07/03/19 06:30 100 19 150/80 (103) 99 07/03/19 06:00 101 19 172/100 (124) 99 07/03/19 06:00 20 Mechanical Ventilator 30 07/03/19 05:30 100 26 157/94 (115) 99 07/03/19 05:00 100 26 153/94 (113) 99 07/03/19 05:00 20 Mechanical Ventilator 30 07/03/19 04:37 127 25 30 35 07/03/19 04:30 107 26 180/101 (127) 99 07/03/19 04:00 35 07/03/19 04:00 98.2 133 26 146/82 (103) 99 07/03/19 04:00 52 07/03/19 04:00 19 Mechanical Ventilator 30 07/03/19 04:00 Mechanical Ventilator 07/03/19 03:35 178/91 07/03/19 03:30 70 18 172/92 (118) 100 07/03/19 03:09 80 18 30 35 07/03/19 03:00 20 Mechanical Ventilator 30 07/03/19 03:00 75 18 180/84 (116) 100 07/03/19 02:30 71 18 164/84 (110) 100 07/03/19 02:00 52 18 162/83 (109) 100 07/03/19 02:00 19 Mechanical Ventilator 30 07/03/19 01:30 55 18 162/83 (109) 100 07/03/19 01:29 49 18 30 35 07/03/19 01:02 22 Mechanical Ventilator 30 07/03/19 01:00 53 18 179/84 (115) 100 07/03/19 01:00 19 Mechanical Ventilator 30 07/03/19 00:30 50 18 170/101 (124) 100 07/03/19 00:00 Mechanical Ventilator 07/03/19 00:00 20 Mechanical Ventilator 30 07/03/19 00:00 98.2 50 18 161/84 (109) 100 07/03/19 00:00 50 07/02/19 23:30 49 18 145/92 (109) 100 07/02/19 23:00 19 Mechanical Ventilator 30 07/02/19 23:00 49 19 160/84 (109) 100 07/02/19 22:43 48 20 30 35 07/02/19 22:30 49 19 160/84 (109) 100 07/02/19 22:00 50 19 167/84 (111) 100 07/02/19 22:00 19 Mechanical Ventilator 30 07/02/19 21:30 50 19 156/90 (112) 100 07/02/19 21:29 51 18 30 35 07/02/19 21:00 19 Mechanical Ventilator 30 07/02/19 21:00 51 19 161/86 (111) 100 07/02/19 20:30 52 19 160/88 (112) 100 07/02/19 20:00 Mechanical Ventilator 07/02/19 20:00 52 07/02/19 20:00 35 07/02/19 20:00 18 Mechanical Ventilator 30 07/02/19 20:00 98.0 52 19 162/98 (119) 100 07/02/19 19:30 51 19 171/85 (113) 100 07/02/19 19:06 64 20 30 35 07/02/19 19:00 53 20 176/92 (120) 100 07/02/19 18:30 54 19 152/77 (102) 100 07/02/19 18:00 20 Mechanical Ventilator 07/02/19 18:00 52 19 154/77 (102) 100 Accucheck: 145 Critical Care - Subjective ROS Limited/Unobtainable: No Condition: improving Vent Support Breath Rate: 18 Vent Support Mode: AC Vent Tidal Volume: 550 Sputum Amount: Small PEEP: 5.0 PIP: 19 I&O: Intake and Output 07/02/19 07/03/19 19:00 07:00 Intake Total 1720 ml 1990 ml Output Total 1250 ml 1440 ml Balance 470 ml 550 ml Intake IV Total 1720 ml 1990 ml Output Urine Total 1250 ml 1440 ml Deangelo John MD Jul 03, 2019 17:37
[2019-07-03] MEDS: Dyna-Hex 2% Top Sol 2oz TOPIC SCH (20:09)
[2019-07-03] MEDS: Epoetin Alfa-EPBX(ESRD on dialysis)4000 units/ml vial SUBQ SCH (20:37)
[2019-07-04] VITALS (46 sets, daily range): BP systolic 123–189; BP diastolic 76–129
[2019-07-04] MEDS: D5 1/2NS 1,000 ML IV SCH ×3 (00:09→17:42)
[2019-07-04] MEDS: fentaNYL Citrate 2,500 MCG in NS 200 ML IV SCH (01:00)
[2019-07-04 05:35] LABS: HEMOGLOBIN 9.7 G/DL (12.0-16.0); MEAN CORPUSCULAR VOLUME 93 FL (80-99); PLATELET COUNT 110 K/UL (150-450); RED BLOOD COUNT 3.11 M/UL (4.20-5.40); RED CELL DISTRIBUTION WIDTH 15.1 % (11.6-14.8); WHITE BLOOD COUNT 15.4 K/UL (4.8-10.8)
[2019-07-04 05:48] LABS: INR 0.9 (0.9-1.1)
[2019-07-04] MEDS: Solu-MEDROL 40mg Inj IVP SCH (06:16)
[2019-07-04] MEDS: NovoLOG Insulin Flexpen SUBQ SCH ×4 (06:17→21:28)
[2019-07-04 06:19] LABS: ALANINE AMINOTRANSFERASE 316 U/L (12-78); ALBUMIN 2.8 G/DL (3.4-5.0); ALBUMIN/GLOBULIN RATIO 0.8 (1.0-2.7); ALKALINE PHOSPHATASE 63 U/L (46-116); ANION GAP 10 mmol/L (5-15); ASPARTATE AMINO TRANSFERASE 130 U/L (15-37); BILIRUBIN,TOTAL 0.4 MG/DL (0.2-1.0); BLOOD UREA NITROGEN 40 mg/dL (7-18); CALCIUM 7.9 MG/DL (8.5-10.1); CARBON DIOXIDE 19 MMOL/L (21-32); CHLORIDE 111 MMOL/L (98-107); CREATININE 2.6 MG/DL (0.55-1.30); POTASSIUM 3.2 MMOL/L (3.5-5.1); SODIUM 140 MMOL/L (136-145)
[2019-07-04] MEDS: Thiamine HCl 100 MG in D5W 55 ML IVPB SCH (10:06)
--- NOTE | 2019-07-04 10:11 | Critical Care Progress Note ---
Assessment/Plan Assessment/Plan Angioedema Severe Hypotension Previous Hypertension Cocaine abuse s/p emergent trach Anemia secondary to blood loss acute respiratory failure leukocytosis, possible steroid related thrombocytopenia renal failure, acute on chronic toxic metabolic encephalopathy HIV+ PLAN post op care iv steroids with taper heme, renal evaluation noted will call ID vent support as is and try to wean daily on trach care ? subacute nutrition needed monitor for bleeding monitor sedation ICU care support as able nutrition GI following monitor hemodynamics medications/laboratory data/nursing notes/ICU care reviewed in detail note reviewed and edited care discussed with RN and RT ICU time spent 42 minutes Critical Care - Subjective Interval Events: on vent reviewed care HIV+ ROS Limited/Unobtainable: Yes Condition: critical I&O: Intake and Output 07/03/19 07/04/19 18:59 06:59 Intake Total 1747 ml 1775 ml Output Total 1265 ml 885 ml Balance 482 ml 890 ml Intake IV Total 1747 ml 1775 ml Output Urine Total 1265 ml 885 ml Critical Care - Objective Last 24 Hour Vital Signs Date Time Temp Pulse Resp B/P (MAP) Pulse Ox O2 Delivery O2 Flow Rate FiO2 07/04/19 08:57 56 19 30 07/04/19 07:26 60 19 144/98 (113) 100 07/04/19 07:19 69 20 177/129 (145) 98 07/04/19 07:00 56 21 175/91 (119) 100 07/04/19 06:54 64 24 30 07/04/19 06:30 64 20 166/91 (116) 100 07/04/19 06:00 63 18 162/87 (112) 100 07/04/19 05:30 60 18 162/88 (112) 100 07/04/19 05:05 65 18 30 07/04/19 05:05 65 18 100 Mechanical Ventilator 30 07/04/19 05:00 67 17 158/87 (110) 100 07/04/19 04:00 97.8 58 20 161/85 (110) 100 07/04/19 04:00 89 07/04/19 04:00 18 Mechanical Ventilator 30 07/04/19 04:00 Mechanical Ventilator 07/04/19 04:00 30 07/04/19 03:30 58 20 152/84 (106) 100 07/04/19 03:00 19 Mechanical Ventilator 30 07/04/19 03:00 53 18 147/93 (111) 100 07/04/19 02:47 55 18 30 07/04/19 02:30 55 19 147/79 (101) 100 07/04/19 02:00 60 18 153/81 (105) 100 07/04/19 02:00 18 Mechanical Ventilator 30 07/04/19 01:30 55 18 139/82 (101) 100 07/04/19 01:30 98.4 07/04/19 01:05 57 18 30 07/04/19 01:00 57 18 147/76 (99) 100 07/04/19 01:00 19 Mechanical Ventilator 30 07/04/19 00:59 19 Mechanical Ventilator 30 07/04/19 00:30 58 19 142/82 (102) 100 07/04/19 00:15 57 18 146/85 (105) 100 07/04/19 00:00 60 07/04/19 00:00 30 07/04/19 00:00 Mechanical Ventilator 07/04/19 00:00 20 Mechanical Ventilator 30 07/04/19 00:00 98.4 62 19 146/85 (105) 100 07/03/19 23:30 66 23 30 07/03/19 23:30 70 19 161/102 (121) 100 07/03/19 23:15 61 18 140/85 (103) 100 07/03/19 23:00 20 Mechanical Ventilator 30 07/03/19 23:00 60 19 144/85 (104) 100 07/03/19 22:30 62 18 149/80 (103) 100 07/03/19 22:00 20 Mechanical Ventilator 30 07/03/19 22:00 59 19 150/84 (106) 100 07/03/19 21:30 66 19 147/83 (104) 100 07/03/19 21:04 64 19 30 07/03/19 21:00 20 Mechanical Ventilator 30 07/03/19 21:00 63 19 138/78 (98) 100 07/03/19 20:30 70 20 141/76 (97) 100 07/03/19 20:00 Mechanical Ventilator 07/03/19 20:00 30 07/03/19 20:00 63 07/03/19 20:00 20 Mechanical Ventilator 30 07/03/19 20:00 98.8 60 20 127/71 (89) 100 07/03/19 19:30 59 19 137/77 (97) 100 07/03/19 19:12 60 19 30 07/03/19 19:00 57 19 139/81 (100) 100 07/03/19 19:00 20 Mechanical Ventilator 30 07/03/19 18:30 59 18 125/74 (91) 100 07/03/19 18:00 20 Mechanical Ventilator 07/03/19 18:00 60 19 127/75 (92) 100 07/03/19 17:30 70 18 130/75 (93) 100 07/03/19 17:17 22 Mechanical Ventilator 07/03/19 17:00 78 20 134/81 (98) 98 07/03/19 17:00 18 Mechanical Ventilator 07/03/19 16:30 100 22 30 07/03/19 16:30 91 20 144/79 (100) 98 07/03/19 16:00 137 07/03/19 16:00 Mechanical Ventilator 07/03/19 16:00 18 Mechanical Ventilator 07/03/19 16:00 98.2 132 25 166/86 (112) 99 07/03/19 16:00 30 07/03/19 15:30 62 24 144/75 (98) 100 07/03/19 15:23 172/92 07/03/19 15:00 54 18 172/92 (118) 100 07/03/19 15:00 20 Mechanical Ventilator 07/03/19 14:43 53 19 30 07/03/19 14:30 54 20 160/86 (110) 100 07/03/19 14:00 20 Mechanical Ventilator 07/03/19 14:00 54 18 161/82 (108) 100 07/03/19 13:30 53 19 157/78 (104) 100 07/03/19 13:00 52 18 153/84 (107) 100 07/03/19 13:00 18 Mechanical Ventilator 07/03/19 12:40 54 18 30 07/03/19 12:30 54 18 162/85 (110) 100 07/03/19 12:00 51 07/03/19 12:00 98.2 52 18 157/83 (107) 100 07/03/19 12:00 30 07/03/19 12:00 18 Mechanical Ventilator 07/03/19 12:00 Mechanical Ventilator 07/03/19 11:43 146/83 07/03/19 11:30 55 19 146/83 (104) 100 07/03/19 11:00 18 Mechanical Ventilator 07/03/19 11:00 54 18 157/84 (108) 100 07/03/19 10:31 55 18 30 30 07/03/19 10:30 55 19 156/84 (108) 100 Labs: Labs Test 07/02/19 02:32 07/02/19 12:15 07/03/19 05:55 07/03/19 12:40 White Blood Count 16.1 K/UL (4.8-10.8) 19.4 K/UL (4.8-10.8) Red Blood Count 2.88 M/UL (4.20-5.40) 3.47 M/UL (4.20-5.40) Hemoglobin 9.0 G/DL (12.0-16.0) 10.9 G/DL (12.0-16.0) Hematocrit 26.0 % (37.0-47.0) 32.3 % (37.0-47.0) Mean Corpuscular Volume 90 FL (80-99) 93 FL (80-99) Mean Corpuscular Hemoglobin 31.3 PG (27.0-31.0) 31.5 PG (27.0-31.0) Mean Corpuscular Hemoglobin Concent 34.6 G/DL (32.0-36.0) 33.9 G/DL (32.0-36.0) Red Cell Distribution Width 14.0 % (11.6-14.8) 15.2 % (11.6-14.8) Platelet Count 50 K/UL (150-450) 91 K/UL (150-450) Mean Platelet Volume 11.4 FL (6.5-10.1) 11.6 FL (6.5-10.1) Neutrophils (%) (Auto) % (45.0-75.0) % (45.0-75.0) Lymphocytes (%) (Auto) % (20.0-45.0) % (20.0-45.0) Monocytes (%) (Auto) % (1.0-10.0) % (1.0-10.0) Eosinophils (%) (Auto) % (0.0-3.0) % (0.0-3.0) Basophils (%) (Auto) % (0.0-2.0) % (0.0-2.0) Differential Total Cells Counted 100 100 Neutrophils % (Manual) 94 % (45-75) 92 % (45-75) Lymphocytes % (Manual) 4 % (20-45) 5 % (20-45) Monocytes % (Manual) 2 % (1-10) 3 % (1-10) Eosinophils % (Manual) 0 % (0-3) 0 % (0-3) Basophils % (Manual) 0 % (0-2) 0 % (0-2) Band Neutrophils 0 % (0-8) 0 % (0-8) Platelet Estimate Decreased Decreased Platelet Morphology Normal Polychromasia 1+ 1+ Hypochromasia 1+ Prothrombin Time 10.5 SEC (9.30-11.50) Prothromb Time International Ratio 1.0 (0.9-1.1) Fibrinogen 309 mg/dL (200-400) Sodium Level 139 MMOL/L (136-145) 142 MMOL/L (136-145) Potassium Level 3.9 MMOL/L (3.5-5.1) 3.4 MMOL/L (3.5-5.1) Chloride Level 109 MMOL/L (98-107) 111 MMOL/L (98-107) Carbon Dioxide Level 19 MMOL/L (21-32) 18 MMOL/L (21-32) Anion Gap 11 mmol/L (5-15) 13 mmol/L (5-15) Blood Urea Nitrogen 44 mg/dL (7-18) 46 mg/dL (7-18) Creatinine 3.5 MG/DL (0.55-1.30) 3.3 MG/DL (0.55-1.30) Estimat Glomerular Filtration Rate 16.2 mL/min (>60) 17.2 mL/min (>60) Glucose Level 139 MG/DL (74-106) 185 MG/DL (74-106) Calcium Level 7.6 MG/DL (8.5-10.1) 8.0 MG/DL (8.5-10.1) Magnesium Level 1.5 MG/DL (1.8-2.4) Total Creatine Kinase 1218 U/L (26-308) Arterial Blood pH 7.384 (7.350-7.450) Arterial Blood Partial Pressure CO2 26.9 mmHg (35.0-45.0) Arterial Blood Partial Pressure O2 138.0 mmHg (75.0-100.0) Arterial Blood HCO3 15.7 mmol/L (22.0-26.0) Arterial Blood Oxygen Saturation 97.8 % (95-100) Arterial Blood Base Excess -8.2 (-2-2) Maxim Test Positive Giant Platelets Rare Anisocytosis 1+ Venous Blood pH 7.334 Venous Blood Partial Pressure CO2 23.6 Venous Blood Partial Pressure O2 < 45.3 Venous Blood HCO3 12.3 Venous Blood Oxygen Saturation 77.6 Venous Blood Base Excess -12.4 Test 07/04/19 05:00 07/04/19 05:21 White Blood Count 15.4 K/UL (4.8-10.8) Red Blood Count 3.11 M/UL (4.20-5.40) Hemoglobin 9.7 G/DL (12.0-16.0) Hematocrit 29.0 % (37.0-47.0) Mean Corpuscular Volume 93 FL (80-99) Mean Corpuscular Hemoglobin 31.0 PG (27.0-31.0) Mean Corpuscular Hemoglobin Concent 33.3 G/DL (32.0-36.0) Red Cell Distribution Width 15.1 % (11.6-14.8) Platelet Count 110 K/UL (150-450) Mean Platelet Volume 10.2 FL (6.5-10.1) Neutrophils (%) (Auto) % (45.0-75.0) Lymphocytes (%) (Auto) % (20.0-45.0) Monocytes (%) (Auto) % (1.0-10.0) Eosinophils (%) (Auto) % (0.0-3.0) Basophils (%) (Auto) % (0.0-2.0) Differential Total Cells Counted 100 Neutrophils % (Manual) 89 % (45-75) Lymphocytes % (Manual) 3 % (20-45) Monocytes % (Manual) 7 % (1-10) Eosinophils % (Manual) 0 % (0-3) Basophils % (Manual) 0 % (0-2) Band Neutrophils 1 % (0-8) Nucleated Red Blood Cells 1 /100 WBC Platelet Estimate Decreased Platelet Morphology Normal Anisocytosis 1+ Erythrocyte Sedimentation Rate 30 MM/HR (0-30) Prothrombin Time 10.0 SEC (9.30-11.50) Prothromb Time International Ratio 0.9 (0.9-1.1) Activated Partial Thromboplast Time 23 SEC (23-33) Sodium Level 140 MMOL/L (136-145) Potassium Level 3.2 MMOL/L (3.5-5.1) Chloride Level 111 MMOL/L (98-107) Carbon Dioxide Level 19 MMOL/L (21-32) Anion Gap 10 mmol/L (5-15) Blood Urea Nitrogen 40 mg/dL (7-18) Creatinine 2.6 MG/DL (0.55-1.30) Estimat Glomerular Filtration Rate 22.8 mL/min (>60) Glucose Level 151 MG/DL (74-106) Calcium Level 7.9 MG/DL (8.5-10.1) Total Bilirubin 0.4 MG/DL (0.2-1.0) Aspartate Amino Transf (AST/SGOT) 130 U/L (15-37) Alanine Aminotransferase (ALT/SGPT) 316 U/L (12-78) Alkaline Phosphatase 63 U/L (46-116) C-Reactive Protein, Quantitative 0.8 mg/dL (0.00-0.90) Total Protein 6.3 G/DL (6.4-8.2) Albumin 2.8 G/DL (3.4-5.0) Globulin 3.5 g/dL Albumin/Globulin Ratio 0.8 (1.0-2.7) Amylase Level 83 U/L (25-115) Lipase 536 U/L (73-393) Venous Blood pH 7.33 Venous Blood Partial Pressure CO2 33.4 Venous Blood Partial Pressure O2 82.4 Venous Blood HCO3 17.5 Venous Blood Total Carbon Dioxide 33.4 Venous Bld O2 Saturation (Measured) 30 Venous Blood Oxygen Saturation 95.4 Venous Blood Base Excess -7.5 Methemoglobin 0.7 Sodium (Blood Gas) Objective: WDWN on trach and vent reduced LOC reduced breath sounds bilaterally without rhonchi or wheeze [id number] without MRG NABS nontender no HSM no CCE nonfocal but sedated NABS nontender no distention reviewed and edited Accucheck: 133 Radames Ray MD Jul 04, 2019 10:11
--- NOTE | 2019-07-04 11:01 | Hematology/Onc Progress Note ---
Assessment/Plan Assessment/Plan A/R # Thrombocytopenia - potential causes multifactorial, evaluate liver and viral etiologies to begin, also could be related to underlying medications patient has received. HIV is ++ --> Hep panel and HIV is ++ --> per id care --> US abd to evaluate for cirrhosis and hsm ordered --> Ectatic pancreatic duct. Significance/etiology uncertain. This can be seen in chronic pancreatitis as well as ductectatic neoplasm--> once more stable get Ct with iv cont --> DIC panel has been reviewed, NEgative --> Peripheral smear ordered to evaluate for blasts /schistocytes and none noted --> abx and other meds have been reviewed --> ok for ppx if plt >50k w/ either heparin or lovenox --> Transfuse if Plt < 20k and fever, or if Plt < 10k without fever --> plt trend 200-->87-->60-->38k-> 50k-->91k-->110k -> [id number] ordered -- > is neg --> consider id eval for hiv # Anemia of chronic disease due to underlying chronic medical issues, multifactorial --> Anemia workup has been ordered and c/w acd --> No evidence of hemolysis is noted, peripheral smear has been reviewed. --> Hgb goal >7. Transfuse prn. --> Epogen or iron at this time is not particularly indicated --> Medications have been reviewed --> low threshold for gi evaluation in case has occult + --> hgb trend 8.7--> 9-->10.9-->9.7 # Leukocytosis --> wbc trend 17-->15-->14k->16-->19.4-->15 --> steriods for angioedema # Angioedeam --> ffp, steriods given --> s/p trach # Resp failure s/p trach --> to vent # Severe Hypotension , Now off both pressors. # Hx of Hypertension # Cocaine abuse # ARF on HD now --> 07/02, 07/03 hd # HIV++ The timing of this note does not necessarily reflect the time of the patient was seen. GREATLY APPRECIATE CONSULTATION. Subjective Constitutional: Denies: no symptoms, chills, fever, malaise, weakness, other HEENT: Denies: no symptoms, eye pain, blurred vision, tearing, double vision, ear pain, ear discharge, nose pain, nose congestion, throat pain, throat swelling, mouth pain, mouth swelling, other Cardiovascular: Denies: no symptoms, chest pain, edema, irregular heart rate, lightheadedness, palpitations, syncope, other Respiratory: Denies: no symptoms, cough, shortness of breath, SOB with excertion, SOB at rest, sputum, wheezing, other Gastrointestinal/Abdominal: Denies: no symptoms, abdomen distended, abdominal pain, black stools, tarry stools, blood in stool, constipated, diarrhea, difficulty swallowing, nausea, poor appetite, poor fluid intake, rectal bleeding , vomiting, other Genitourinary: Denies: no symptoms, burning, discharge, frequency, flank pain, hematuria, incontinence, pain, urgency, other Endocrine: Denies: no symptoms, excessive sweating, flushing, intolerance to cold, intolerance to heat, increased hunger, increased thirst, increased urine, unexplained weight gain, unexplained weight loss, other Allergies: Coded Allergies: No Known Allergies (Unverified , 06/29/19) Subjective 07/02: remains in the icu, onpressors and epogen, hgb stable 07/03: in icu, no events, on vent, no fever or chills, denies pain or sob 07/04: s/p vent/trach, on fentanyl gtt, id made aware of HIV++ Objective Objective Current Medications Medications (Trade) Dose Ordered Sig/Dmitri Route PRN Reason Start Time Stop Time Status Last Admin Dose Admin Acetaminophen (Tylenol) 650 mg Q4H PRN RECTAL FEVER 06/29/19 11:01 07/29/19 11:00 Chlorhexidine Gluconate (Lynn-Hex 2%) 1 applic DAILY@1999 TOPIC 06/29/19 20:00 07/29/19 19:59 07/03/19 20:09 Dextrose (Dextrose 50%) 25 ml Q30M PRN IV Hypoglycemia 06/30/19 15:00 07/30/19 14:59 Dextrose (Dextrose 50%) 50 ml Q30M PRN IV Hypoglycemia 06/30/19 15:00 07/30/19 14:59 Dextrose/Sodium Chloride 1,000 ml @ 125 mls/hr Q8H IV 06/30/19 09:00 07/30/19 08:59 07/04/19 09:00 Diphenhydramine HCl (Benadryl) 25 mg Q6H PRN IVP Muscle Spasm 06/29/19 11:01 07/29/19 11:00 Epinephrine 1 mg/ Dextrose 250 ml @ 0 mls/hr Q24H IV 06/29/19 16:00 07/29/19 15:59 Epoetin Eric (Epoetin Eric(ESRD on dialysis)) 8,000 unit MON- SUBQ 07/01/19 21:00 07/31/19 20:59 07/03/19 20:37 Famotidine (Pepcid I.v.) 20 mg Q12HR IVP 06/30/19 21:00 07/30/19 20:59 07/04/19 09:55 Fentanyl Citrate 2500 mcg/Sodium Chloride 250 ml @ 0 mls/hr Q24H IV 06/29/19 12:30 07/06/19 12:29 07/04/19 01:00 Hydralazine HCl (Apresoline) 10 mg Q2H PRN IV For High Blood Pressure 07/02/19 21:15 08/01/19 21:14 07/03/19 15:23 Hydromorphone HCl (Dilaudid) 0.5 mg Q3H PRN IVP Pain Score 1-3 06/29/19 11:02 07/06/19 11:01 Hydromorphone HCl (Dilaudid) 1 mg Q3H PRN IVP pain score 4-6 06/29/19 11:02 07/06/19 11:01 Hydromorphone HCl (Dilaudid) 2 mg Q3H PRN IVP pain score 7-10 06/29/19 11:02 07/06/19 11:01 Insulin Aspart (NovoLOG) BEFORE MEALS AND HS SUBQ 06/30/19 16:30 07/30/19 16:29 07/04/19 06:17 Lorazepam (Ativan 2mg/ml 1ml) 0.5 mg Q24HRS PRN IV Agitation 06/29/19 11:36 07/06/19 11:35 07/03/19 04:56 Lorazepam (Ativan 2mg/ml 1ml) 2 mg Q4H PRN IV For Anxiety 07/03/19 09:15 07/10/19 09:14 Methylprednisolone Sodium Succinate (Solu-MEDROL) 40 mg DAILY IVP 07/05/19 09:00 07/29/19 13:59 Metoclopramide HCl (Reglan) 10 mg Q6H PRN IVP Nausea & Vomiting 06/29/19 11:01 07/29/19 11:00 Norepinephrine Bitartrate 8 mg/ Dextrose 508 ml @ 0 mls/hr Q24H IV 06/29/19 12:30 07/29/19 12:29 06/30/19 11:42 Ondansetron HCl (Zofran) 4 mg Q6H PRN IVP Nausea & Vomiting 06/29/19 11:01 07/29/19 11:00 Thiamine HCl 100 mg/Dextrose 56 ml @ 112 mls/hr DAILY IVPB 07/03/19 11:00 08/02/19 10:59 07/04/19 10:06 Vasopressin 100 units/Sodium Chloride 100 ml @ 2.4 mls/hr Q24H IV 06/29/19 14:15 07/29/19 14:14 06/30/19 15:40 Last 24 Hour Vital Signs Date Time Temp Pulse Resp B/P (MAP) Pulse Ox O2 Delivery O2 Flow Rate FiO2 07/04/19 08:57 56 19 30 07/04/19 07:26 60 19 144/98 (113) 100 07/04/19 07:19 69 20 177/129 (145) 98 07/04/19 07:00 56 21 175/91 (119) 100 07/04/19 06:54 64 24 30 07/04/19 06:30 64 20 166/91 (116) 100 07/04/19 06:00 63 18 162/87 (112) 100 07/04/19 05:30 60 18 162/88 (112) 100 07/04/19 05:05 65 18 30 07/04/19 05:05 65 18 100 Mechanical Ventilator 30 07/04/19 05:00 67 17 158/87 (110) 100 07/04/19 04:00 97.8 58 20 161/85 (110) 100 07/04/19 04:00 89 07/04/19 04:00 18 Mechanical Ventilator 30 07/04/19 04:00 Mechanical Ventilator 07/04/19 04:00 30 07/04/19 03:30 58 20 152/84 (106) 100 07/04/19 03:00 19 Mechanical Ventilator 30 07/04/19 03:00 53 18 147/93 (111) 100 07/04/19 02:47 55 18 30 07/04/19 02:30 55 19 147/79 (101) 100 07/04/19 02:00 60 18 153/81 (105) 100 07/04/19 02:00 18 Mechanical Ventilator 30 07/04/19 01:30 55 18 139/82 (101) 100 07/04/19 01:30 98.4 07/04/19 01:05 57 18 30 07/04/19 01:00 57 18 147/76 (99) 100 07/04/19 01:00 19 Mechanical Ventilator 30 07/04/19 00:59 19 Mechanical Ventilator 30 07/04/19 00:30 58 19 142/82 (102) 100 07/04/19 00:15 57 18 146/85 (105) 100 07/04/19 00:00 60 07/04/19 00:00 30 07/04/19 00:00 Mechanical Ventilator 07/04/19 00:00 20 Mechanical Ventilator 30 07/04/19 00:00 98.4 62 19 146/85 (105) 100 07/03/19 23:30 66 23 30 07/03/19 23:30 70 19 161/102 (121) 100 07/03/19 23:15 61 18 140/85 (103) 100 07/03/19 23:00 20 Mechanical Ventilator 30 07/03/19 23:00 60 19 144/85 (104) 100 07/03/19 22:30 62 18 149/80 (103) 100 07/03/19 22:00 20 Mechanical Ventilator 30 07/03/19 22:00 59 19 150/84 (106) 100 07/03/19 21:30 66 19 147/83 (104) 100 07/03/19 21:04 64 19 30 07/03/19 21:00 20 Mechanical Ventilator 30 07/03/19 21:00 63 19 138/78 (98) 100 07/03/19 20:30 70 20 141/76 (97) 100 07/03/19 20:00 Mechanical Ventilator 07/03/19 20:00 30 07/03/19 20:00 63 07/03/19 20:00 20 Mechanical Ventilator 30 07/03/19 20:00 98.8 60 20 127/71 (89) 100 07/03/19 19:30 59 19 137/77 (97) 100 07/03/19 19:12 60 19 30 07/03/19 19:00 57 19 139/81 (100) 100 07/03/19 19:00 20 Mechanical Ventilator 30 07/03/19 18:30 59 18 125/74 (91) 100 07/03/19 18:00 20 Mechanical Ventilator 07/03/19 18:00 60 19 127/75 (92) 100 07/03/19 17:30 70 18 130/75 (93) 100 07/03/19 17:17 22 Mechanical Ventilator 07/03/19 17:00 78 20 134/81 (98) 98 07/03/19 17:00 18 Mechanical Ventilator 07/03/19 16:30 100 22 30 07/03/19 16:30 91 20 144/79 (100) 98 07/03/19 16:00 137 07/03/19 16:00 Mechanical Ventilator 07/03/19 16:00 18 Mechanical Ventilator 07/03/19 16:00 98.2 132 25 166/86 (112) 99 07/03/19 16:00 30 07/03/19 15:30 62 24 144/75 (98) 100 07/03/19 15:23 172/92 07/03/19 15:00 54 18 172/92 (118) 100 07/03/19 15:00 20 Mechanical Ventilator 07/03/19 14:43 53 19 30 07/03/19 14:30 54 20 160/86 (110) 100 07/03/19 14:00 20 Mechanical Ventilator 07/03/19 14:00 54 18 161/82 (108) 100 07/03/19 13:30 53 19 157/78 (104) 100 07/03/19 13:00 52 18 153/84 (107) 100 07/03/19 13:00 18 Mechanical Ventilator 07/03/19 12:40 54 18 30 07/03/19 12:30 54 18 162/85 (110) 100 07/03/19 12:00 51 07/03/19 12:00 98.2 52 18 157/83 (107) 100 07/03/19 12:00 30 07/03/19 12:00 18 Mechanical Ventilator 07/03/19 12:00 Mechanical Ventilator 07/03/19 11:43 146/83 07/03/19 11:30 55 19 146/83 (104) 100 07/03/19 11:00 18 Mechanical Ventilator 07/03/19 11:00 54 18 157/84 (108) 100 07/03/19 10:31 55 18 30 30 07/03/19 10:30 55 19 156/84 (108) 100 07/03/19 10:00 56 12 146/85 (105) 100 07/03/19 10:00 18 Mechanical Ventilator 07/03/19 09:30 59 12 165/84 (111) 100 07/03/19 09:20 100 07/03/19 09:20 59 16 30 30 07/03/19 09:18 58 18 158/94 (115) 100 07/03/19 09:00 18 Mechanical Ventilator 07/03/19 09:00 58 18 158/94 (115) 100 07/03/19 08:48 18 Mechanical Ventilator 07/03/19 08:30 60 18 141/78 (99) 100 07/03/19 08:09 18 Mechanical Ventilator 07/03/19 08:00 Mechanical Ventilator 07/03/19 08:00 98.0 64 18 161/82 (108) 100 07/03/19 08:00 61 07/03/19 08:00 30 07/03/19 07:30 65 20 173/100 (124) 100 07/03/19 07:26 69 19 30 07/03/19 07:00 20 Endotracheal Tube 30 07/03/19 07:00 65 19 175/90 (118) 99 07/03/19 06:30 100 19 150/80 (103) 99 07/03/19 06:00 101 19 172/100 (124) 99 07/03/19 06:00 20 Mechanical Ventilator 30 07/03/19 05:30 100 26 157/94 (115) 99 07/03/19 05:00 100 26 153/94 (113) 99 07/03/19 05:00 20 Mechanical Ventilator 30 07/03/19 04:37 127 25 30 35 07/03/19 04:30 107 26 180/101 (127) 99 07/03/19 04:00 35 07/03/19 04:00 98.2 133 26 146/82 (103) 99 07/03/19 04:00 52 07/03/19 04:00 19 Mechanical Ventilator 30 07/03/19 04:00 Mechanical Ventilator 07/03/19 03:35 178/91 07/03/19 03:30 70 18 172/92 (118) 100 07/03/19 03:09 80 18 30 35 07/03/19 03:00 20 Mechanical Ventilator 30 07/03/19 03:00 75 18 180/84 (116) 100 07/03/19 02:30 71 18 164/84 (110) 100 07/03/19 02:00 52 18 162/83 (109) 100 07/03/19 02:00 19 Mechanical Ventilator 30 07/03/19 01:30 55 18 162/83 (109) 100 07/03/19 01:29 49 18 30 35 07/03/19 01:02 22 Mechanical Ventilator 30 07/03/19 01:00 53 18 179/84 (115) 100 07/03/19 01:00 19 Mechanical Ventilator 30 07/03/19 00:30 50 18 170/101 (124) 100 07/03/19 00:00 Mechanical Ventilator 07/03/19 00:00 20 Mechanical Ventilator 30 07/03/19 00:00 98.2 50 18 161/84 (109) 100 07/03/19 00:00 50 07/02/19 23:30 49 18 145/92 (109) 100 07/02/19 23:00 19 Mechanical Ventilator 30 07/02/19 23:00 49 19 160/84 (109) 100 07/02/19 22:43 48 20 30 35 07/02/19 22:30 49 19 160/84 (109) 100 07/02/19 22:00 50 19 167/84 (111) 100 07/02/19 22:00 19 Mechanical Ventilator 30 07/02/19 21:30 50 19 156/90 (112) 100 07/02/19 21:29 51 18 30 35 07/02/19 21:00 19 Mechanical Ventilator 30 07/02/19 21:00 51 19 161/86 (111) 100 07/02/19 20:30 52 19 160/88 (112) 100 07/02/19 20:00 Mechanical Ventilator 07/02/19 20:00 52 07/02/19 20:00 35 07/02/19 20:00 18 Mechanical Ventilator 30 07/02/19 20:00 98.0 52 19 162/98 (119) 100 07/02/19 19:30 51 19 171/85 (113) 100 07/02/19 19:06 64 20 30 35 07/02/19 19:00 53 20 176/92 (120) 100 07/02/19 18:30 54 19 152/77 (102) 100 07/02/19 18:00 20 Mechanical Ventilator 07/02/19 18:00 52 19 154/77 (102) 100 07/02/19 17:30 50 20 154/77 (102) 99 07/02/19 17:30 50 21 166/88 (114) 100 07/02/19 17:25 108 22 35 07/02/19 17:00 20 Mechanical Ventilator 07/02/19 17:00 56 20 146/78 (100) 100 07/02/19 16:30 54 18 159/94 (115) 100 07/02/19 16:00 98.0 60 18 153/91 (111) 100 07/02/19 16:00 Mechanical Ventilator 07/02/19 16:00 18 Mechanical Ventilator 07/02/19 16:00 35 07/02/19 16:00 50 07/02/19 15:30 54 20 154/78 (103) 100 07/02/19 15:11 76 20 35 07/02/19 15:05 53 18 154/78 (103) 100 07/02/19 15:00 18 Mechanical Ventilator 07/02/19 14:30 54 20 154/84 (107) 100 07/02/19 14:00 20 Mechanical Ventilator 07/02/19 14:00 52 18 151/80 (103) 100 07/02/19 13:30 50 20 151/80 (103) 100 07/02/19 13:27 49 19 35 07/02/19 13:11 19 Mechanical Ventilator 07/02/19 13:00 18 Mechanical Ventilator 07/02/19 13:00 51 18 153/83 (106) 100 07/02/19 12:30 52 19 158/81 (106) 100 07/02/19 12:00 35 07/02/19 12:00 54 07/02/19 12:00 20 Mechanical Ventilator 07/02/19 12:00 Mechanical Ventilator 07/02/19 12:00 97.7 52 20 159/83 (108) 100 07/02/19 11:37 135/76 07/02/19 11:30 55 20 133/77 (95) 100 07/02/19 11:00 56 18 135/76 (95) 100 07/02/19 11:00 18 Mechanical Ventilator Intake and Output 07/03/19 07/04/19 18:59 06:59 Intake Total 1747 ml 1775 ml Output Total 1265 ml 885 ml Balance 482 ml 890 ml Intake IV Total 1747 ml 1775 ml Output Urine Total 1265 ml 885 ml Labs Test 07/02/19 02:32 07/02/19 12:15 07/03/19 05:55 07/03/19 12:40 White Blood Count 16.1 K/UL (4.8-10.8) 19.4 K/UL (4.8-10.8) Red Blood Count 2.88 M/UL (4.20-5.40) 3.47 M/UL (4.20-5.40) Hemoglobin 9.0 G/DL (12.0-16.0) 10.9 G/DL (12.0-16.0) Hematocrit 26.0 % (37.0-47.0) 32.3 % (37.0-47.0) Mean Corpuscular Volume 90 FL (80-99) 93 FL (80-99) Mean Corpuscular Hemoglobin 31.3 PG (27.0-31.0) 31.5 PG (27.0-31.0) Mean Corpuscular Hemoglobin Concent 34.6 G/DL (32.0-36.0) 33.9 G/DL (32.0-36.0) Red Cell Distribution Width 14.0 % (11.6-14.8) 15.2 % (11.6-14.8) Platelet Count 50 K/UL (150-450) 91 K/UL (150-450) Mean Platelet Volume 11.4 FL (6.5-10.1) 11.6 FL (6.5-10.1) Neutrophils (%) (Auto) % (45.0-75.0) % (45.0-75.0) Lymphocytes (%) (Auto) % (20.0-45.0) % (20.0-45.0) Monocytes (%) (Auto) % (1.0-10.0) % (1.0-10.0) Eosinophils (%) (Auto) % (0.0-3.0) % (0.0-3.0) Basophils (%) (Auto) % (0.0-2.0) % (0.0-2.0) Differential Total Cells Counted 100 100 Neutrophils % (Manual) 94 % (45-75) 92 % (45-75) Lymphocytes % (Manual) 4 % (20-45) 5 % (20-45) Monocytes % (Manual) 2 % (1-10) 3 % (1-10) Eosinophils % (Manual) 0 % (0-3) 0 % (0-3) Basophils % (Manual) 0 % (0-2) 0 % (0-2) Band Neutrophils 0 % (0-8) 0 % (0-8) Platelet Estimate Decreased Decreased Platelet Morphology Normal Polychromasia 1+ 1+ Hypochromasia 1+ Prothrombin Time 10.5 SEC (9.30-11.50) Prothromb Time International Ratio 1.0 (0.9-1.1) Fibrinogen 309 mg/dL (200-400) Sodium Level 139 MMOL/L (136-145) 142 MMOL/L (136-145) Potassium Level 3.9 MMOL/L (3.5-5.1) 3.4 MMOL/L (3.5-5.1) Chloride Level 109 MMOL/L (98-107) 111 MMOL/L (98-107) Carbon Dioxide Level 19 MMOL/L (21-32) 18 MMOL/L (21-32) Anion Gap 11 mmol/L (5-15) 13 mmol/L (5-15) Blood Urea Nitrogen 44 mg/dL (7-18) 46 mg/dL (7-18) Creatinine 3.5 MG/DL (0.55-1.30) 3.3 MG/DL (0.55-1.30) Estimat Glomerular Filtration Rate 16.2 mL/min (>60) 17.2 mL/min (>60) Glucose Level 139 MG/DL (74-106) 185 MG/DL (74-106) Calcium Level 7.6 MG/DL (8.5-10.1) 8.0 MG/DL (8.5-10.1) Magnesium Level 1.5 MG/DL (1.8-2.4) Total Creatine Kinase 1218 U/L (26-308) Arterial Blood pH 7.384 (7.350-7.450) Arterial Blood Partial Pressure CO2 26.9 mmHg (35.0-45.0) Arterial Blood Partial Pressure O2 138.0 mmHg (75.0-100.0) Arterial Blood HCO3 15.7 mmol/L (22.0-26.0) Arterial Blood Oxygen Saturation 97.8 % (95-100) Arterial Blood Base Excess -8.2 (-2-2) Maxim Test Positive Giant Platelets Rare Anisocytosis 1+ Venous Blood pH 7.334 Venous Blood Partial Pressure CO2 23.6 Venous Blood Partial Pressure O2 < 45.3 Venous Blood HCO3 12.3 Venous Blood Oxygen Saturation 77.6 Venous Blood Base Excess -12.4 Test 07/04/19 05:00 07/04/19 05:21 White Blood Count 15.4 K/UL (4.8-10.8) Red Blood Count 3.11 M/UL (4.20-5.40) Hemoglobin 9.7 G/DL (12.0-16.0) Hematocrit 29.0 % (37.0-47.0) Mean Corpuscular Volume 93 FL (80-99) Mean Corpuscular Hemoglobin 31.0 PG (27.0-31.0) Mean Corpuscular Hemoglobin Concent 33.3 G/DL (32.0-36.0) Red Cell Distribution Width 15.1 % (11.6-14.8) Platelet Count 110 K/UL (150-450) Mean Platelet Volume 10.2 FL (6.5-10.1) Neutrophils (%) (Auto) % (45.0-75.0) Lymphocytes (%) (Auto) % (20.0-45.0) Monocytes (%) (Auto) % (1.0-10.0) Eosinophils (%) (Auto) % (0.0-3.0) Basophils (%) (Auto) % (0.0-2.0) Differential Total Cells Counted 100 Neutrophils % (Manual) 89 % (45-75) Lymphocytes % (Manual) 3 % (20-45) Monocytes % (Manual) 7 % (1-10) Eosinophils % (Manual) 0 % (0-3) Basophils % (Manual) 0 % (0-2) Band Neutrophils 1 % (0-8) Nucleated Red Blood Cells 1 /100 WBC Platelet Estimate Decreased Platelet Morphology Normal Anisocytosis 1+ Erythrocyte Sedimentation Rate 30 MM/HR (0-30) Prothrombin Time 10.0 SEC (9.30-11.50) Prothromb Time International Ratio 0.9 (0.9-1.1) Activated Partial Thromboplast Time 23 SEC (23-33) Sodium Level 140 MMOL/L (136-145) Potassium Level 3.2 MMOL/L (3.5-5.1) Chloride Level 111 MMOL/L (98-107) Carbon Dioxide Level 19 MMOL/L (21-32) Anion Gap 10 mmol/L (5-15) Blood Urea Nitrogen 40 mg/dL (7-18) Creatinine 2.6 MG/DL (0.55-1.30) Estimat Glomerular Filtration Rate 22.8 mL/min (>60) Glucose Level 151 MG/DL (74-106) Calcium Level 7.9 MG/DL (8.5-10.1) Total Bilirubin 0.4 MG/DL (0.2-1.0) Aspartate Amino Transf (AST/SGOT) 130 U/L (15-37) Alanine Aminotransferase (ALT/SGPT) 316 U/L (12-78) Alkaline Phosphatase 63 U/L (46-116) C-Reactive Protein, Quantitative 0.8 mg/dL (0.00-0.90) Total Protein 6.3 G/DL (6.4-8.2) Albumin 2.8 G/DL (3.4-5.0) Globulin 3.5 g/dL Albumin/Globulin Ratio 0.8 (1.0-2.7) Amylase Level 83 U/L (25-115) Lipase 536 U/L (73-393) Venous Blood pH 7.33 Venous Blood Partial Pressure CO2 33.4 Venous Blood Partial Pressure O2 82.4 Venous Blood HCO3 17.5 Venous Blood Total Carbon Dioxide 33.4 Venous Bld O2 Saturation (Measured) 30 Venous Blood Oxygen Saturation 95.4 Venous Blood Base Excess -7.5 Methemoglobin 0.7 Sodium (Blood Gas) Height (Feet): 5 Height (Inches): 4.00 Weight (Pounds): 168 Objective Physical Exam: Vitals: reviewed General Appearance: NAD HEENT: normocephalic, atraumatic ++ trach VENT Neck: non-tender, normal alignment Respiratory/Chest: normal breath sounds bilaterally Cardiovascular/Chest: normal peripheral pulses, normal rate Abdomen: normal bowel sounds, soft, nontender Extremities: normal range of motion Jordan Nguyen MD Jul 04, 2019 11:01
[2019-07-04] MEDS: DiphenhydrAMINE 50mg/ml Inj IVP PRN ×2 (12:11→20:06)
--- NOTE | 2019-07-04 12:55 | Nephrology Progress Note ---
Assessment/Plan Plan [facility]UAN[facility] - Off HD . Monitor Labs. Pull Jeison tomorrow if not in use Subjective Subjective No c/o Objective Objective Last 24 Hour Vital Signs Date Time Temp Pulse Resp B/P (MAP) Pulse Ox O2 Delivery O2 Flow Rate FiO2 07/04/19 12:16 167/91 07/04/19 11:01 62 17 30 07/04/19 11:00 59 18 158/91 (113) 100 07/04/19 11:00 30 07/04/19 10:30 54 18 168/83 (111) 100 07/04/19 10:00 71 21 169/87 (114) 99 07/04/19 09:30 58 19 160/92 (114) 100 07/04/19 09:00 56 18 161/86 (111) 100 07/04/19 08:57 56 19 30 07/04/19 08:30 56 20 163/84 (110) 100 07/04/19 08:00 30 07/04/19 08:00 97.8 57 18 163/89 (113) 100 07/04/19 07:26 60 19 144/98 (113) 100 07/04/19 07:19 69 20 177/129 (145) 98 07/04/19 07:00 56 21 175/91 (119) 100 07/04/19 06:54 64 24 30 07/04/19 06:30 64 20 166/91 (116) 100 07/04/19 06:00 63 18 162/87 (112) 100 07/04/19 05:30 60 18 162/88 (112) 100 07/04/19 05:05 65 18 30 07/04/19 05:05 65 18 100 Mechanical Ventilator 30 07/04/19 05:00 67 17 158/87 (110) 100 07/04/19 04:00 97.8 58 20 161/85 (110) 100 07/04/19 04:00 89 07/04/19 04:00 18 Mechanical Ventilator 30 07/04/19 04:00 Mechanical Ventilator 07/04/19 04:00 30 07/04/19 03:30 58 20 152/84 (106) 100 07/04/19 03:00 19 Mechanical Ventilator 30 07/04/19 03:00 53 18 147/93 (111) 100 07/04/19 02:47 55 18 30 07/04/19 02:30 55 19 147/79 (101) 100 07/04/19 02:00 60 18 153/81 (105) 100 07/04/19 02:00 18 Mechanical Ventilator 30 07/04/19 01:30 55 18 139/82 (101) 100 07/04/19 01:30 98.4 07/04/19 01:05 57 18 30 07/04/19 01:00 57 18 147/76 (99) 100 07/04/19 01:00 19 Mechanical Ventilator 30 07/04/19 00:59 19 Mechanical Ventilator 30 07/04/19 00:30 58 19 142/82 (102) 100 07/04/19 00:15 57 18 146/85 (105) 100 07/04/19 00:00 60 07/04/19 00:00 30 07/04/19 00:00 Mechanical Ventilator 07/04/19 00:00 20 Mechanical Ventilator 30 07/04/19 00:00 98.4 62 19 146/85 (105) 100 07/03/19 23:30 66 23 30 07/03/19 23:30 70 19 161/102 (121) 100 07/03/19 23:15 61 18 140/85 (103) 100 07/03/19 23:00 20 Mechanical Ventilator 30 07/03/19 23:00 60 19 144/85 (104) 100 07/03/19 22:30 62 18 149/80 (103) 100 07/03/19 22:00 20 Mechanical Ventilator 30 07/03/19 22:00 59 19 150/84 (106) 100 07/03/19 21:30 66 19 147/83 (104) 100 07/03/19 21:04 64 19 30 07/03/19 21:00 20 Mechanical Ventilator 30 07/03/19 21:00 63 19 138/78 (98) 100 07/03/19 20:30 70 20 141/76 (97) 100 07/03/19 20:00 Mechanical Ventilator 07/03/19 20:00 30 07/03/19 20:00 63 07/03/19 20:00 20 Mechanical Ventilator 30 07/03/19 20:00 98.8 60 20 127/71 (89) 100 07/03/19 19:30 59 19 137/77 (97) 100 07/03/19 19:12 60 19 30 07/03/19 19:00 57 19 139/81 (100) 100 07/03/19 19:00 20 Mechanical Ventilator 30 07/03/19 18:30 59 18 125/74 (91) 100 07/03/19 18:00 20 Mechanical Ventilator 07/03/19 18:00 60 19 127/75 (92) 100 07/03/19 17:30 70 18 130/75 (93) 100 07/03/19 17:17 22 Mechanical Ventilator 07/03/19 17:00 78 20 134/81 (98) 98 07/03/19 17:00 18 Mechanical Ventilator 07/03/19 16:30 100 22 30 07/03/19 16:30 91 20 144/79 (100) 98 07/03/19 16:00 137 07/03/19 16:00 Mechanical Ventilator 07/03/19 16:00 18 Mechanical Ventilator 07/03/19 16:00 98.2 132 25 166/86 (112) 99 07/03/19 16:00 30 07/03/19 15:30 62 24 144/75 (98) 100 07/03/19 15:23 172/92 07/03/19 15:00 54 18 172/92 (118) 100 07/03/19 15:00 20 Mechanical Ventilator 07/03/19 14:43 53 19 30 07/03/19 14:30 54 20 160/86 (110) 100 07/03/19 14:00 20 Mechanical Ventilator 07/03/19 14:00 54 18 161/82 (108) 100 07/03/19 13:30 53 19 157/78 (104) 100 07/03/19 13:00 52 18 153/84 (107) 100 07/03/19 13:00 18 Mechanical Ventilator Intake and Output 07/03/19 07/04/19 18:59 06:59 Intake Total 1747 ml 1775 ml Output Total 1265 ml 885 ml Balance 482 ml 890 ml Intake IV Total 1747 ml 1775 ml Output Urine Total 1265 ml 885 ml Laboratory Tests 07/04/19 05:00: White Blood Count 15.4H, Red Blood Count 3.11L, Hemoglobin 9.7L, Hematocrit 29.0L, Mean Corpuscular Volume 93, Mean Corpuscular Hemoglobin 31.0, Mean Corpuscular Hemoglobin Concent 33.3, Red Cell Distribution Width 15.1H, Platelet Count 110L, Mean Platelet Volume 10.2H, Neutrophils (%) (Auto) , Lymphocytes (%) (Auto) , Monocytes (%) (Auto) , Eosinophils (%) (Auto) , Basophils (%) (Auto) , Differential Total Cells Counted 100, Neutrophils % ( Manual) 89H, Lymphocytes % (Manual) 3L, Monocytes % (Manual) 7, Eosinophils % ( Manual) 0, Basophils % (Manual) 0, Band Neutrophils 1, Nucleated Red Blood Cells 1, Platelet Estimate DecreasedL, Platelet Morphology Normal, Anisocytosis 1+, Erythrocyte Sedimentation Rate 30, Prothrombin Time 10.0, Prothromb Time International Ratio 0.9, Activated Partial Thromboplast Time 23, Sodium Level 140, Potassium Level 3.2L, Chloride Level 111H, Carbon Dioxide Level 19L, Anion Gap 10, Blood Urea Nitrogen 40H, Creatinine 2.6H, Estimat Glomerular Filtration Rate 22.8, Glucose Level 151H, Calcium Level 7.9L, Total Bilirubin 0.4, Aspartate Amino Transf (AST/SGOT) 130H, Alanine Aminotransferase (ALT/SGPT) 316H , Alkaline Phosphatase 63, C-Reactive Protein, Quantitative 0.8, Total Protein 6.3L, Albumin 2.8L, Globulin 3.5, Albumin/Globulin Ratio 0.8L, Amylase Level 83 , Lipase 536H 07/04/19 05:21: Venous Blood pH 7.33, Venous Blood Partial Pressure CO2 33.4, Venous Blood Partial Pressure O2 82.4, Venous Blood HCO3 17.5, Venous Blood Total Carbon Dioxide 33.4, Venous Bld O2 Saturation (Measured) 30, Venous Blood Oxygen Saturation 95.4, Venous Blood Base Excess -7.5, Methemoglobin 0.7, Sodium ( Blood Gas) Height (Feet): 5 Height (Inches): 4.00 Weight (Pounds): 168 Objective CV RR Lungs CTA Abd SNT. BS + E No CCE Jeremy Martinez MD Jul 04, 2019 12:55
--- NOTE | 2019-07-04 14:01 | General Progress Note ---
Assessment/Plan Problem List: (1) Tracheostomy hemorrhage ICD Codes: J95.01 - Hemorrhage from tracheostomy stoma SNOMED: 23737590 (2) Tracheostomy complication ICD Codes: J95.00 - Unspecified tracheostomy complication SNOMED: 39014063 (3) Cocaine abuse ICD Codes: F14.10 - Cocaine abuse, uncomplicated SNOMED: 35140702 (4) Angioedema ICD Codes: T78.3XXA - Angioneurotic edema, initial encounter SNOMED: 13384338 Qualifiers: Qualified Codes: T78.3XXA - Angioneurotic edema, initial encounter (5) Hypertension ICD Codes: I10 - Essential (primary) hypertension SNOMED: 62097158 Qualifiers: Qualified Codes: I10 - Essential (primary) hypertension Status: stable, progressing Assessment/Plan: vent resp care monitor for bleeding, pain rx iv steroids per pulm dvt/stress ulcer prophylaxis anxiolytics add catapress patch Subjective ROS Limited/Unobtainable: No Constitutional: Reports: weakness HEENT: Reports: no symptoms Cardiovascular: Reports: no symptoms Respiratory: Reports: cough Gastrointestinal/Abdominal: Reports: difficulty swallowing Genitourinary: Reports: no symptoms Neurologic/Psychiatric: Reports: no symptoms Endocrine: Reports: no symptoms Hematologic/Lymphatic: Reports: anemia Allergies: Coded Allergies: No Known Allergies (Unverified , 06/29/19) All Systems: reviewed and negative except above Subjective no events. on the vent. no fever or chills. no bleeding. denies pain or sob. less agitated. on fentanyl drip. failed swallow eval Objective Last 24 Hour Vital Signs Date Time Temp Pulse Resp B/P (MAP) Pulse Ox O2 Delivery O2 Flow Rate FiO2 07/04/19 13:02 84 23 30 07/04/19 12:16 167/91 07/04/19 11:01 62 17 30 07/04/19 11:00 59 18 158/91 (113) 100 07/04/19 11:00 30 07/04/19 10:30 54 18 168/83 (111) 100 07/04/19 10:00 71 21 169/87 (114) 99 07/04/19 09:30 58 19 160/92 (114) 100 07/04/19 09:00 56 18 161/86 (111) 100 07/04/19 08:57 56 19 30 07/04/19 08:30 56 20 163/84 (110) 100 07/04/19 08:00 30 07/04/19 08:00 97.8 57 18 163/89 (113) 100 07/04/19 07:26 60 19 144/98 (113) 100 07/04/19 07:19 69 20 177/129 (145) 98 07/04/19 07:00 56 21 175/91 (119) 100 07/04/19 06:54 64 24 30 07/04/19 06:30 64 20 166/91 (116) 100 07/04/19 06:00 63 18 162/87 (112) 100 07/04/19 05:30 60 18 162/88 (112) 100 07/04/19 05:05 65 18 30 07/04/19 05:05 65 18 100 Mechanical Ventilator 30 07/04/19 05:00 67 17 158/87 (110) 100 07/04/19 04:00 97.8 58 20 161/85 (110) 100 07/04/19 04:00 89 07/04/19 04:00 18 Mechanical Ventilator 07/04/19 04:00 Mechanical Ventilator 07/04/19 04:00 30 07/04/19 03:30 58 20 152/84 (106) 100 07/04/19 03:00 19 Mechanical Ventilator 30 07/04/19 03:00 53 18 147/93 (111) 100 07/04/19 02:47 55 18 30 07/04/19 02:30 55 19 147/79 (101) 100 07/04/19 02:00 60 18 153/81 (105) 100 07/04/19 02:00 18 Mechanical Ventilator 30 07/04/19 01:30 55 18 139/82 (101) 100 07/04/19 01:30 98.4 07/04/19 01:05 57 18 30 07/04/19 01:00 57 18 147/76 (99) 100 07/04/19 01:00 19 Mechanical Ventilator 30 07/04/19 00:59 19 Mechanical Ventilator 30 07/04/19 00:30 58 19 142/82 (102) 100 07/04/19 00:15 57 18 146/85 (105) 100 07/04/19 00:00 60 07/04/19 00:00 30 07/04/19 00:00 Mechanical Ventilator 07/04/19 00:00 20 Mechanical Ventilator 30 07/04/19 00:00 98.4 62 19 146/85 (105) 100 07/03/19 23:30 66 23 30 07/03/19 23:30 70 19 161/102 (121) 100 07/03/19 23:15 61 18 140/85 (103) 100 07/03/19 23:00 20 Mechanical Ventilator 30 07/03/19 23:00 60 19 144/85 (104) 100 07/03/19 22:30 62 18 149/80 (103) 100 07/03/19 22:00 20 Mechanical Ventilator 30 07/03/19 22:00 59 19 150/84 (106) 100 07/03/19 21:30 66 19 147/83 (104) 100 07/03/19 21:04 64 19 30 07/03/19 21:00 20 Mechanical Ventilator 30 07/03/19 21:00 63 19 138/78 (98) 100 07/03/19 20:30 70 20 141/76 (97) 100 07/03/19 20:00 Mechanical Ventilator 07/03/19 20:00 30 07/03/19 20:00 63 07/03/19 20:00 20 Mechanical Ventilator 30 07/03/19 20:00 98.8 60 20 127/71 (89) 100 07/03/19 19:30 59 19 137/77 (97) 100 07/03/19 19:12 60 19 30 07/03/19 19:00 57 19 139/81 (100) 100 07/03/19 19:00 20 Mechanical Ventilator 30 07/03/19 18:30 59 18 125/74 (91) 100 07/03/19 18:00 20 Mechanical Ventilator 07/03/19 18:00 60 19 127/75 (92) 100 07/03/19 17:30 70 18 130/75 (93) 100 07/03/19 17:17 22 Mechanical Ventilator 07/03/19 17:00 78 20 134/81 (98) 98 07/03/19 17:00 18 Mechanical Ventilator 07/03/19 16:30 100 22 30 07/03/19 16:30 91 20 144/79 (100) 98 07/03/19 16:00 137 07/03/19 16:00 Mechanical Ventilator 8/21/19 16:00 18 Mechanical Ventilator 07/03/19 16:00 98.2 132 25 166/86 (112) 99 07/03/19 16:00 30 07/03/19 15:30 62 24 144/75 (98) 100 07/03/19 15:23 172/92 07/03/19 15:00 54 18 172/92 (118) 100 07/03/19 15:00 20 Mechanical Ventilator 07/03/19 14:43 53 19 30 07/03/19 14:30 54 20 160/86 (110) 100 07/03/19 14:00 20 Mechanical Ventilator 07/03/19 14:00 54 18 161/82 (108) 100 Intake and Output 07/03/19 07/04/19 19:00 07:00 Intake Total 1755 ml 1622 ml Output Total 1250 ml 790 ml Balance 505 ml 832 ml Intake IV Total 1755 ml 1622 ml Output Urine Total 1250 ml 790 ml Laboratory Tests 07/04/19 05:00: White Blood Count 15.4H, Red Blood Count 3.11L, Hemoglobin 9.7L, Hematocrit 29.0L, Mean Corpuscular Volume 93, Mean Corpuscular Hemoglobin 31.0, Mean Corpuscular Hemoglobin Concent 33.3, Red Cell Distribution Width 15.1H, Platelet Count 110L, Mean Platelet Volume 10.2H, Neutrophils (%) (Auto) , Lymphocytes (%) (Auto) , Monocytes (%) (Auto) , Eosinophils (%) (Auto) , Basophils (%) (Auto) , Differential Total Cells Counted 100, Neutrophils % ( Manual) 89H, Lymphocytes % (Manual) 3L, Monocytes % (Manual) 7, Eosinophils % ( Manual) 0, Basophils % (Manual) 0, Band Neutrophils 1, Nucleated Red Blood Cells 1, Platelet Estimate DecreasedL, Platelet Morphology Normal, Anisocytosis 1+, Erythrocyte Sedimentation Rate 30, Prothrombin Time 10.0, Prothromb Time International Ratio 0.9, Activated Partial Thromboplast Time 23, Sodium Level 140, Potassium Level 3.2L, Chloride Level 111H, Carbon Dioxide Level 19L, Anion Gap 10, Blood Urea Nitrogen 40H, Creatinine 2.6H, Estimat Glomerular Filtration Rate 22.8, Glucose Level 151H, Calcium Level 7.9L, Total Bilirubin 0.4, Aspartate Amino Transf (AST/SGOT) 130H, Alanine Aminotransferase (ALT/SGPT) 316H , Alkaline Phosphatase 63, C-Reactive Protein, Quantitative 0.8, Total Protein 6.3L, Albumin 2.8L, Globulin 3.5, Albumin/Globulin Ratio 0.8L, Amylase Level 83 , Lipase 536H 07/04/19 05:21: Venous Blood pH 7.33, Venous Blood Partial Pressure CO2 33.4, Venous Blood Partial Pressure O2 82.4, Venous Blood HCO3 17.5, Venous Blood Total Carbon Dioxide 33.4, Venous Bld O2 Saturation (Measured) 30, Venous Blood Oxygen Saturation 95.4, Venous Blood Base Excess -7.5, Methemoglobin 0.7, Sodium ( Blood Gas) Height (Feet): 5 Height (Inches): 4.00 Weight (Pounds): 168 Objective General Appearance: WD/WN, alert Neck: supple, other - trach midline Cardiovascular: normal rate, regular rhythm Respiratory/Chest: chest wall non-tender, lungs clear, normal breath sounds, no respiratory distress Abdomen: normal bowel sounds, non tender, soft, no organomegaly Edema: no edema noted Arm (L), no edema noted Arm (R), no edema noted Leg (L), no edema noted Leg (R), no edema noted Pedal (L), no edema noted Pedal (R), no edema noted Generalized Danis Markham MD Jul 04, 2019 14:01
[2019-07-04] MEDS: Vasopressin 100 UNITS in NS 95 ML IV SCH (14:15)
[2019-07-04] MEDS: LORazepam Inj 2mg/ml 1ml IV PRN ×2 (14:51→20:21)
[2019-07-04] MEDS: EPINEPHrine 1mg/1ml Amp 1 MG in D5W 249 ML IV SCH (15:47)
--- NOTE | 2019-07-04 16:15 | Consultation ---
DATE OF CONSULTATION: 07/04/2019 INFECTIOUS DISEASE CONSULTATION CONSULTING PHYSICIAN: Kwaku Garcia M.D. PRIMARY ATTENDING: Radames Ray M.D. REASON FOR CONSULT: Newly-diagnosed HIV. This consult is for coverage of Dr. Adams. HISTORY OF PRESENT ILLNESS: This is a 59-year-old female admitted on 06/29/2019 after an allergic drug reaction apparently to the drug she takes for hypertension. She developed angioedema and swelling of the tongue. She had emergency tracheostomy at the day of admission that was complicated with bleeding and she got transfusion, developed acute renal failure for few days, getting hemodialyzed. The screening test for HIV antibody and rapid test were positive. PAST MEDICAL HISTORY: Significant for hypertension. MEDICATIONS: Methylprednisone, thiamine, lorazepam, hydralazine, epoetin, famotidine, insulin, hydromorphone, Zofran, metoclopramide, diphenhydramine. SOCIAL HISTORY: Limited. Single. Has no children. Lives alone. Has cocaine abuse. REVIEW OF SYSTEMS: Limited. No complaints. PHYSICAL EXAMINATION: VITAL SIGNS: Temperature 97.8, pulse 62, blood pressure 144/98. GENERAL APPEARANCE: No acute distress. Seems to have normal weight. HEAD AND NECK: Status post tracheostomy. No oral lesion. HEART: Normal rate. LUNGS: Clear. ABDOMEN: Soft. EXTREMITIES: Has no edema. Has left femoral HD line. LABORATORY DATA: Sodium 134, potassium 4.5, chloride 105, bicarb 18, BUN 41, creatinine 3.8, glucose 153. Lipase at the time of admission was 533. WBC 15.4, hemoglobin 9.7, hematocrit 29, platelet is 110. Urine toxicology was positive for cocaine. UA negative. Chest x-ray was negative. Abdominal ultrasound showed ectatic pancreatic duct, likely chronic pancreatitis, mild right hydronephrosis. HIV antibody positive. Rapid HIV test also was positive. IMPRESSION: Newly-diagnosed HIV, unknown stage. The patient has angioedema, acute renal failure. Has cocaine abuse. Has thrombocytopenia that is improving, anemia after the tracheostomy, likely chronic pancreatitis. RECOMMENDATION: We will check HIV viral load. We will check CD4 count. We will follow up the labs and continue current management. At the end of my exam, I thank Dr. Ray for involving me in the care of this patient. Kwaku Garcia M.D. DR: REBEKAH JOB#: [id number] CC: HIRAM
--- NOTE | 2019-07-04 16:30 | Cardiac Electrophysiology PN ---
Assessment/Plan Assessment/Plan 1. Angioedema, s/p emergency tracheostomy on the Vent Weaning protocol in progress 2. Severe Hypotension, Now off pressors. 3. Hx of Hypertension 4. Cocaine abuse 5. ARF. Last HD and no further scheduled 6. Anemia partial blood loss during tracheostomy DW RN Subjective Subjective Intubated via tracheostomy. Off Pressors and fentanyl drip. Being weaned Objective Last 24 Hour Vital Signs Date Time Temp Pulse Resp B/P (MAP) Pulse Ox O2 Delivery O2 Flow Rate FiO2 07/04/19 15:47 160/92 07/04/19 14:37 63 20 30 07/04/19 13:02 84 23 30 07/04/19 12:16 167/91 07/04/19 12:00 30 07/04/19 12:00 59 07/04/19 12:00 Mechanical Ventilator 07/04/19 11:01 62 17 30 07/04/19 11:00 59 18 158/91 (113) 100 07/04/19 11:00 30 07/04/19 10:30 54 18 168/83 (111) 100 07/04/19 10:00 71 21 169/87 (114) 99 07/04/19 09:30 58 19 160/92 (114) 100 07/04/19 09:00 56 18 161/86 (111) 100 07/04/19 08:57 56 19 30 07/04/19 08:30 56 20 163/84 (110) 100 07/04/19 08:00 30 07/04/19 08:00 Mechanical Ventilator 07/04/19 08:00 97.8 57 18 163/89 (113) 100 07/04/19 08:00 58 07/04/19 07:26 60 19 144/98 (113) 100 07/04/19 07:19 69 20 177/129 (145) 98 07/04/19 07:00 56 21 175/91 (119) 100 07/04/19 06:54 64 24 30 07/04/19 06:30 64 20 166/91 (116) 100 07/04/19 06:00 63 18 162/87 (112) 100 07/04/19 05:30 60 18 162/88 (112) 100 07/04/19 05:05 65 18 30 07/04/19 05:05 65 18 100 Mechanical Ventilator 30 07/04/19 05:00 67 17 158/87 (110) 100 07/04/19 04:00 97.8 58 20 161/85 (110) 100 07/04/19 04:00 89 07/04/19 04:00 18 Mechanical Ventilator 30 07/04/19 04:00 Mechanical Ventilator 07/04/19 04:00 30 07/04/19 03:30 58 20 152/84 (106) 100 07/04/19 03:00 19 Mechanical Ventilator 30 07/04/19 03:00 53 18 147/93 (111) 100 07/04/19 02:47 55 18 30 07/04/19 02:30 55 19 147/79 (101) 100 07/04/19 02:00 60 18 153/81 (105) 100 07/04/19 02:00 18 Mechanical Ventilator 30 07/04/19 01:30 55 18 139/82 (101) 100 07/04/19 01:30 98.4 07/04/19 01:05 57 18 30 07/04/19 01:00 57 18 147/76 (99) 100 07/04/19 01:00 19 Mechanical Ventilator 30 07/04/19 00:59 19 Mechanical Ventilator 30 07/04/19 00:30 58 19 142/82 (102) 100 07/04/19 00:15 57 18 146/85 (105) 100 07/04/19 00:00 60 07/04/19 00:00 30 07/04/19 00:00 Mechanical Ventilator 07/04/19 00:00 20 Mechanical Ventilator 30 07/04/19 00:00 98.4 62 19 146/85 (105) 100 07/03/19 23:30 66 23 30 07/03/19 23:30 70 19 161/102 (121) 100 07/03/19 23:15 61 18 140/85 (103) 100 07/03/19 23:00 20 Mechanical Ventilator 30 07/03/19 23:00 60 19 144/85 (104) 100 07/03/19 22:30 62 18 149/80 (103) 100 07/03/19 22:00 20 Mechanical Ventilator 30 07/03/19 22:00 59 19 150/84 (106) 100 07/03/19 21:30 66 19 147/83 (104) 100 8/21/19 21:04 64 19 30 07/03/19 21:00 20 Mechanical Ventilator 30 07/03/19 21:00 63 19 138/78 (98) 100 07/03/19 20:30 70 20 141/76 (97) 100 07/03/19 20:00 Mechanical Ventilator 07/03/19 20:00 30 07/03/19 20:00 63 07/03/19 20:00 20 Mechanical Ventilator 30 07/03/19 20:00 98.8 60 20 127/71 (89) 100 07/03/19 19:30 59 19 137/77 (97) 100 07/03/19 19:12 60 19 30 07/03/19 19:00 57 19 139/81 (100) 100 07/03/19 19:00 20 Mechanical Ventilator 30 07/03/19 18:30 59 18 125/74 (91) 100 07/03/19 18:00 20 Mechanical Ventilator 07/03/19 18:00 60 19 127/75 (92) 100 07/03/19 17:30 70 18 130/75 (93) 100 07/03/19 17:17 22 Mechanical Ventilator 07/03/19 17:00 78 20 134/81 (98) 98 07/03/19 17:00 18 Mechanical Ventilator 07/03/19 16:30 100 22 30 07/03/19 16:30 91 20 144/79 (100) 98 Intake and Output 07/03/19 07/04/19 19:00 07:00 Intake Total 1755 ml 1622 ml Output Total 1250 ml 790 ml Balance 505 ml 832 ml Intake IV Total 1755 ml 1622 ml Output Urine Total 1250 ml 790 ml Laboratory Tests Test 07/04/19 05:00 07/04/19 05:21 White Blood Count 15.4 K/UL (4.8-10.8) H Red Blood Count 3.11 M/UL (4.20-5.40) L Hemoglobin 9.7 G/DL (12.0-16.0) L Hematocrit 29.0 % (37.0-47.0) L Mean Corpuscular Volume 93 FL (80-99) Mean Corpuscular Hemoglobin 31.0 PG (27.0-31.0) Mean Corpuscular Hemoglobin Concent 33.3 G/DL (32.0-36.0) Red Cell Distribution Width 15.1 % (11.6-14.8) H Platelet Count 110 K/UL (150-450) L Mean Platelet Volume 10.2 FL (6.5-10.1) H Neutrophils (%) (Auto) % (45.0-75.0) Lymphocytes (%) (Auto) % (20.0-45.0) Monocytes (%) (Auto) % (1.0-10.0) Eosinophils (%) (Auto) % (0.0-3.0) Basophils (%) (Auto) % (0.0-2.0) Differential Total Cells Counted 100 Neutrophils % (Manual) 89 % (45-75) H Lymphocytes % (Manual) 3 % (20-45) L Monocytes % (Manual) 7 % (1-10) Eosinophils % (Manual) 0 % (0-3) Basophils % (Manual) 0 % (0-2) Band Neutrophils 1 % (0-8) Nucleated Red Blood Cells 1 /100 WBC Platelet Estimate Decreased L Platelet Morphology Normal Anisocytosis 1+ Erythrocyte Sedimentation Rate 30 MM/HR (0-30) Prothrombin Time 10.0 SEC (9.30-11.50) Prothromb Time International Ratio 0.9 (0.9-1.1) Activated Partial Thromboplast Time 23 SEC (23-33) Sodium Level 140 MMOL/L (136-145) Potassium Level 3.2 MMOL/L (3.5-5.1) L Chloride Level 111 MMOL/L (98-107) H Carbon Dioxide Level 19 MMOL/L (21-32) L Anion Gap 10 mmol/L (5-15) Blood Urea Nitrogen 40 mg/dL (7-18) H Creatinine 2.6 MG/DL (0.55-1.30) H Estimat Glomerular Filtration Rate 22.8 mL/min (>60) Glucose Level 151 MG/DL (74-106) H Calcium Level 7.9 MG/DL (8.5-10.1) L Total Bilirubin 0.4 MG/DL (0.2-1.0) Aspartate Amino Transf (AST/SGOT) 130 U/L (15-37) H Alanine Aminotransferase (ALT/SGPT) 316 U/L (12-78) H Alkaline Phosphatase 63 U/L (46-116) C-Reactive Protein, Quantitative 0.8 mg/dL (0.00-0.90) Total Protein 6.3 G/DL (6.4-8.2) L Albumin 2.8 G/DL (3.4-5.0) L Globulin 3.5 g/dL Albumin/Globulin Ratio 0.8 (1.0-2.7) L Amylase Level 83 U/L (25-115) Lipase 536 U/L (73-393) H Venous Blood pH 7.33 Venous Blood Partial Pressure CO2 33.4 Venous Blood Partial Pressure O2 82.4 Venous Blood HCO3 17.5 Venous Blood Total Carbon Dioxide 33.4 Venous Bld O2 Saturation (Measured) 30 Venous Blood Oxygen Saturation 95.4 Venous Blood Base Excess -7.5 Methemoglobin 0.7 Sodium (Blood Gas) Objective HEENT: Tracheostomy in place LUNGS: Coarse rhonchi CVS: RRR ABDOMEN: Obese EXT: No edema. Left groin Jeison Catheter Giles Rodarte MD Jul 04, 2019 16:30
--- NOTE | 2019-07-04 18:18 | Surgery Progress Note ---
Surgery Progress Note Subjective Additional Comments weaning well took off vent today much more comfortable with trach balloon down and room air Objective Last 24 Hour Vital Signs Date Time Temp Pulse Resp B/P (MAP) Pulse Ox O2 Delivery O2 Flow Rate FiO2 07/04/19 17:16 100 Cool Aerosol 8.0 30 07/04/19 15:47 160/92 07/04/19 14:37 63 20 30 07/04/19 13:02 84 23 30 07/04/19 12:16 167/91 07/04/19 12:00 30 07/04/19 12:00 59 07/04/19 12:00 Mechanical Ventilator 07/04/19 11:01 62 17 30 07/04/19 11:00 59 18 158/91 (113) 100 07/04/19 11:00 30 07/04/19 10:30 54 18 168/83 (111) 100 07/04/19 10:00 71 21 169/87 (114) 99 07/04/19 09:30 58 19 160/92 (114) 100 07/04/19 09:00 56 18 161/86 (111) 100 07/04/19 08:57 56 19 30 07/04/19 08:30 56 20 163/84 (110) 100 07/04/19 08:00 30 07/04/19 08:00 Mechanical Ventilator 07/04/19 08:00 97.8 57 18 163/89 (113) 100 07/04/19 08:00 58 07/04/19 07:26 60 19 144/98 (113) 100 07/04/19 07:19 69 20 177/129 (145) 98 07/04/19 07:00 56 21 175/91 (119) 100 07/04/19 06:54 64 24 30 07/04/19 06:30 64 20 166/91 (116) 100 07/04/19 06:00 63 18 162/87 (112) 100 07/04/19 05:30 60 18 162/88 (112) 100 07/04/19 05:05 65 18 30 07/04/19 05:05 65 18 100 Mechanical Ventilator 30 07/04/19 05:00 67 17 158/87 (110) 100 07/04/19 04:00 97.8 58 20 161/85 (110) 100 07/04/19 04:00 89 07/04/19 04:00 18 Mechanical Ventilator 30 07/04/19 04:00 Mechanical Ventilator 07/04/19 04:00 30 07/04/19 03:30 58 20 152/84 (106) 100 07/04/19 03:00 19 Mechanical Ventilator 30 07/04/19 03:00 53 18 147/93 (111) 100 07/04/19 02:47 55 18 30 07/04/19 02:30 55 19 147/79 (101) 100 07/04/19 02:00 60 18 153/81 (105) 100 07/04/19 02:00 18 Mechanical Ventilator 30 07/04/19 01:30 55 18 139/82 (101) 100 07/04/19 01:30 98.4 07/04/19 01:05 57 18 30 07/04/19 01:00 57 18 147/76 (99) 100 07/04/19 01:00 19 Mechanical Ventilator 30 07/04/19 00:59 19 Mechanical Ventilator 30 07/04/19 00:30 58 19 142/82 (102) 100 07/04/19 00:15 57 18 146/85 (105) 100 07/04/19 00:00 60 07/04/19 00:00 30 07/04/19 00:00 Mechanical Ventilator 07/04/19 00:00 20 Mechanical Ventilator 30 07/04/19 00:00 98.4 62 19 146/85 (105) 100 07/03/19 23:30 66 23 30 07/03/19 23:30 70 19 161/102 (121) 100 07/03/19 23:15 61 18 140/85 (103) 100 07/03/19 23:00 20 Mechanical Ventilator 30 07/03/19 23:00 60 19 144/85 (104) 100 07/03/19 22:30 62 18 149/80 (103) 100 07/03/19 22:00 20 Mechanical Ventilator 30 07/03/19 22:00 59 19 150/84 (106) 100 07/03/19 21:30 66 19 147/83 (104) 100 07/03/19 21:04 64 19 30 07/03/19 21:00 20 Mechanical Ventilator 30 07/03/19 21:00 63 19 138/78 (98) 100 07/03/19 20:30 70 20 141/76 (97) 100 07/03/19 20:00 Mechanical Ventilator 07/03/19 20:00 30 07/03/19 20:00 63 07/03/19 20:00 20 Mechanical Ventilator 30 07/03/19 20:00 98.8 60 20 127/71 (89) 100 07/03/19 19:30 59 19 137/77 (97) 100 07/03/19 19:12 60 19 30 07/03/19 19:00 57 19 139/81 (100) 100 07/03/19 19:00 20 Mechanical Ventilator 30 07/03/19 18:30 59 18 125/74 (91) 100 I&O Intake and Output 07/03/19 07/04/19 19:00 07:00 Intake Total 1755 ml 1622 ml Output Total 1250 ml 790 ml Balance 505 ml 832 ml Intake IV Total 1755 ml 1622 ml Output Urine Total 1250 ml 790 ml Dressing: dry Wound: clean Cardiovascular: RSR Respiratory: clear Abdomen: soft, present bowel sounds, non-distended Extremities: no cyanosis Laboratory Tests Test 07/04/19 05:00 07/04/19 05:21 White Blood Count 15.4 K/UL (4.8-10.8) H Red Blood Count 3.11 M/UL (4.20-5.40) L Hemoglobin 9.7 G/DL (12.0-16.0) L Hematocrit 29.0 % (37.0-47.0) L Mean Corpuscular Volume 93 FL (80-99) Mean Corpuscular Hemoglobin 31.0 PG (27.0-31.0) Mean Corpuscular Hemoglobin Concent 33.3 G/DL (32.0-36.0) Red Cell Distribution Width 15.1 % (11.6-14.8) H Platelet Count 110 K/UL (150-450) L Mean Platelet Volume 10.2 FL (6.5-10.1) H Neutrophils (%) (Auto) % (45.0-75.0) Lymphocytes (%) (Auto) % (20.0-45.0) Monocytes (%) (Auto) % (1.0-10.0) Eosinophils (%) (Auto) % (0.0-3.0) Basophils (%) (Auto) % (0.0-2.0) Differential Total Cells Counted 100 Neutrophils % (Manual) 89 % (45-75) H Lymphocytes % (Manual) 3 % (20-45) L Monocytes % (Manual) 7 % (1-10) Eosinophils % (Manual) 0 % (0-3) Basophils % (Manual) 0 % (0-2) Band Neutrophils 1 % (0-8) Nucleated Red Blood Cells 1 /100 WBC Platelet Estimate Decreased L Platelet Morphology Normal Anisocytosis 1+ Erythrocyte Sedimentation Rate 30 MM/HR (0-30) Prothrombin Time 10.0 SEC (9.30-11.50) Prothromb Time International Ratio 0.9 (0.9-1.1) Activated Partial Thromboplast Time 23 SEC (23-33) Sodium Level 140 MMOL/L (136-145) Potassium Level 3.2 MMOL/L (3.5-5.1) L Chloride Level 111 MMOL/L (98-107) H Carbon Dioxide Level 19 MMOL/L (21-32) L Anion Gap 10 mmol/L (5-15) Blood Urea Nitrogen 40 mg/dL (7-18) H Creatinine 2.6 MG/DL (0.55-1.30) H Estimat Glomerular Filtration Rate 22.8 mL/min (>60) Glucose Level 151 MG/DL (74-106) H Calcium Level 7.9 MG/DL (8.5-10.1) L Total Bilirubin 0.4 MG/DL (0.2-1.0) Aspartate Amino Transf (AST/SGOT) 130 U/L (15-37) H Alanine Aminotransferase (ALT/SGPT) 316 U/L (12-78) H Alkaline Phosphatase 63 U/L (46-116) C-Reactive Protein, Quantitative 0.8 mg/dL (0.00-0.90) Total Protein 6.3 G/DL (6.4-8.2) L Albumin 2.8 G/DL (3.4-5.0) L Globulin 3.5 g/dL Albumin/Globulin Ratio 0.8 (1.0-2.7) L Amylase Level 83 U/L (25-115) Lipase 536 U/L (73-393) H Venous Blood pH 7.33 Venous Blood Partial Pressure CO2 33.4 Venous Blood Partial Pressure O2 82.4 Venous Blood HCO3 17.5 Venous Blood Total Carbon Dioxide 33.4 Venous Bld O2 Saturation (Measured) 30 Venous Blood Oxygen Saturation 95.4 Venous Blood Base Excess -7.5 Methemoglobin 0.7 Sodium (Blood Gas) Plan Problems: (1) Angioedema Assessment & Plan: airway trach as per reports trach stable currently sutures in place dressings changed HD line in place and noted off vent as tolerated will follow with recs thank you (2) Tracheostomy hemorrhage Assessment & Plan: stable dressings dry will monitor cont off vent as tolerated (3) Tracheostomy complication George Cavazos Jul 04, 2019 18:18
--- NOTE | 2019-07-04 19:57 | General Progress Note ---
Assessment/Plan Status: stable, progressing Assessment/Plan: Assessment - Angioedema, s/p emergency trach - abnormal LFT, ? Rhabdo related - improving - borderline CBD dilation on U/S - abnormal Lipase, ? significance - dysphagia, did not pass swallow - Thrombocytopenia - improved - HIV (+) - Drug abuse Recommendations - Will hold off on NGT/OGT per pt request - re-evaluate swallow function daily - Monitor platelets, LFT, CPK - will consider CT imaging of abd once out of ICU Subjective Allergies: Coded Allergies: No Known Allergies (Unverified , 06/29/19) Subjective more awake ST noted declined NGT placement wants to wait Objective Last 24 Hour Vital Signs Date Time Temp Pulse Resp B/P (MAP) Pulse Ox O2 Delivery O2 Flow Rate FiO2 07/04/19 18:32 180/95 07/04/19 17:16 100 Cool Aerosol 8.0 30 07/04/19 15:47 160/92 07/04/19 14:37 63 20 30 07/04/19 13:02 84 23 30 07/04/19 12:16 167/91 07/04/19 12:00 30 07/04/19 12:00 59 07/04/19 12:00 Mechanical Ventilator 07/04/19 11:01 62 17 30 07/04/19 11:00 59 18 158/91 (113) 100 07/04/19 11:00 30 07/04/19 10:30 54 18 168/83 (111) 100 07/04/19 10:00 71 21 169/87 (114) 99 07/04/19 09:30 58 19 160/92 (114) 100 07/04/19 09:00 56 18 161/86 (111) 100 07/04/19 08:57 56 19 30 07/04/19 08:30 56 20 163/84 (110) 100 07/04/19 08:00 30 07/04/19 08:00 Mechanical Ventilator 07/04/19 08:00 97.8 57 18 163/89 (113) 100 07/04/19 08:00 58 07/04/19 07:26 60 19 144/98 (113) 100 07/04/19 07:19 69 20 177/129 (145) 98 07/04/19 07:00 56 21 175/91 (119) 100 8/22/19 06:54 64 24 30 07/04/19 06:30 64 20 166/91 (116) 100 07/04/19 06:00 63 18 162/87 (112) 100 07/04/19 05:30 60 18 162/88 (112) 100 07/04/19 05:05 65 18 30 07/04/19 05:05 65 18 100 Mechanical Ventilator 30 07/04/19 05:00 67 17 158/87 (110) 100 07/04/19 04:00 97.8 58 20 161/85 (110) 100 07/04/19 04:00 89 07/04/19 04:00 18 Mechanical Ventilator 30 07/04/19 04:00 Mechanical Ventilator 07/04/19 04:00 30 07/04/19 03:30 58 20 152/84 (106) 100 07/04/19 03:00 19 Mechanical Ventilator 30 07/04/19 03:00 53 18 147/93 (111) 100 07/04/19 02:47 55 18 30 07/04/19 02:30 55 19 147/79 (101) 100 07/04/19 02:00 60 18 153/81 (105) 100 07/04/19 02:00 18 Mechanical Ventilator 30 07/04/19 01:30 55 18 139/82 (101) 100 07/04/19 01:30 98.4 07/04/19 01:05 57 18 30 07/04/19 01:00 57 18 147/76 (99) 100 07/04/19 01:00 19 Mechanical Ventilator 30 07/04/19 00:59 19 Mechanical Ventilator 30 07/04/19 00:30 58 19 142/82 (102) 100 07/04/19 00:15 57 18 146/85 (105) 100 07/04/19 00:00 60 07/04/19 00:00 30 07/04/19 00:00 Mechanical Ventilator 07/04/19 00:00 20 Mechanical Ventilator 30 07/04/19 00:00 98.4 62 19 146/85 (105) 100 07/03/19 23:30 66 23 30 07/03/19 23:30 70 19 161/102 (121) 100 07/03/19 23:15 61 18 140/85 (103) 100 07/03/19 23:00 20 Mechanical Ventilator 30 07/03/19 23:00 60 19 144/85 (104) 100 07/03/19 22:30 62 18 149/80 (103) 100 07/03/19 22:00 20 Mechanical Ventilator 30 07/03/19 22:00 59 19 150/84 (106) 100 07/03/19 21:30 66 19 147/83 (104) 100 07/03/19 21:04 64 19 30 07/03/19 21:00 20 Mechanical Ventilator 30 07/03/19 21:00 63 19 138/78 (98) 100 07/03/19 20:30 70 20 141/76 (97) 100 07/03/19 20:00 Mechanical Ventilator 07/03/19 20:00 30 07/03/19 20:00 63 07/03/19 20:00 20 Mechanical Ventilator 30 07/03/19 20:00 98.8 60 20 127/71 (89) 100 Intake and Output 07/03/19 07/04/19 19:00 07:00 Intake Total 1755 ml 1622 ml Output Total 1250 ml 790 ml Balance 505 ml 832 ml Intake IV Total 1755 ml 1622 ml Output Urine Total 1250 ml 790 ml Laboratory Tests 07/04/19 05:00: White Blood Count 15.4H, Red Blood Count 3.11L, Hemoglobin 9.7L, Hematocrit 29.0L, Mean Corpuscular Volume 93, Mean Corpuscular Hemoglobin 31.0, Mean Corpuscular Hemoglobin Concent 33.3, Red Cell Distribution Width 15.1H, Platelet Count 110L, Mean Platelet Volume 10.2H, Neutrophils (%) (Auto) , Lymphocytes (%) (Auto) , Monocytes (%) (Auto) , Eosinophils (%) (Auto) , Basophils (%) (Auto) , Differential Total Cells Counted 100, Neutrophils % ( Manual) 89H, Lymphocytes % (Manual) 3L, Monocytes % (Manual) 7, Eosinophils % ( Manual) 0, Basophils % (Manual) 0, Band Neutrophils 1, Nucleated Red Blood Cells 1, Platelet Estimate DecreasedL, Platelet Morphology Normal, Anisocytosis 1+, Erythrocyte Sedimentation Rate 30, Prothrombin Time 10.0, Prothromb Time International Ratio 0.9, Activated Partial Thromboplast Time 23, Sodium Level 140, Potassium Level 3.2L, Chloride Level 111H, Carbon Dioxide Level 19L, Anion Gap 10, Blood Urea Nitrogen 40H, Creatinine 2.6H, Estimat Glomerular Filtration Rate 22.8, Glucose Level 151H, Calcium Level 7.9L, Total Bilirubin 0.4, Aspartate Amino Transf (AST/SGOT) 130H, Alanine Aminotransferase (ALT/SGPT) 316H , Alkaline Phosphatase 63, C-Reactive Protein, Quantitative 0.8, Total Protein 6.3L, Albumin 2.8L, Globulin 3.5, Albumin/Globulin Ratio 0.8L, Amylase Level 83 , Lipase 536H 07/04/19 05:21: Venous Blood pH 7.33, Venous Blood Partial Pressure CO2 33.4, Venous Blood Partial Pressure O2 82.4, Venous Blood HCO3 17.5, Venous Blood Total Carbon Dioxide 33.4, Venous Bld O2 Saturation (Measured) 30, Venous Blood Oxygen Saturation 95.4, Venous Blood Base Excess -7.5, Methemoglobin 0.7, Sodium ( Blood Gas) Height (Feet): 5 Height (Inches): 4.00 Weight (Pounds): 168 Objective WDWN AA woman NCAT (+) trach Coarse BS RR abd soft no edema Elisabeth Sommers MD Jul 04, 2019 19:57
[2019-07-04] MEDS: Dyna-Hex 2% Top Sol 2oz TOPIC SCH (20:06)
[2019-07-04] MEDS: Albuterol/Ipratropium 3ml neb HHN SCH (21:34)
[2019-07-05] VITALS (51 sets, daily range): BP systolic 121–165; BP diastolic 75–110
[2019-07-05] MEDS: D5 1/2NS 1,000 ML IV SCH ×3 (00:09→17:02)
[2019-07-05] MEDS: fentaNYL Citrate 2,500 MCG in NS 200 ML IV SCH ×3 (01:30→18:05)
[2019-07-05] MEDS: Albuterol/Ipratropium 3ml neb HHN SCH ×6 (02:57→23:40)
[2019-07-05] MEDS: NovoLOG Insulin Flexpen SUBQ SCH ×4 (05:56→21:08)
[2019-07-05 06:39] LABS: BASOPHILS % (AUTO) 1.1 % (0.0-2.0); EOSINOPHILS % (AUTO) 0.3 % (0.0-3.0); HEMATOCRIT 29.6 % (37.0-47.0); HEMOGLOBIN 9.8 G/DL (12.0-16.0); LYMPHOCYTES % (AUTO) 7.1 % (20.0-45.0); MEAN CORPUSCULAR VOLUME 94 FL (80-99); MONOCYTES % (AUTO) 9.6 % (1.0-10.0); NEUTROPHILS % (AUTO) 81.9 % (45.0-75.0); PLATELET COUNT 138 K/UL (150-450); RED BLOOD COUNT 3.14 M/UL (4.20-5.40); RED CELL DISTRIBUTION WIDTH 15.5 % (11.6-14.8); WHITE BLOOD COUNT 15.9 K/UL (4.8-10.8)
[2019-07-05 06:57] LABS: ALANINE AMINOTRANSFERASE 214 U/L (12-78); ALBUMIN 2.7 G/DL (3.4-5.0); ALBUMIN/GLOBULIN RATIO 0.8 (1.0-2.7); ALKALINE PHOSPHATASE 67 U/L (46-116); ANION GAP 12 mmol/L (5-15); ASPARTATE AMINO TRANSFERASE 51 U/L (15-37); BILIRUBIN,TOTAL 0.6 MG/DL (0.2-1.0); BLOOD UREA NITROGEN 35 mg/dL (7-18); CALCIUM 8.1 MG/DL (8.5-10.1); CARBON DIOXIDE 19 MMOL/L (21-32); CHLORIDE 113 MMOL/L (98-107); CREATINE KINASE 176 U/L (26-308); CREATININE 2.3 MG/DL (0.55-1.30); POTASSIUM 3.2 MMOL/L (3.5-5.1); SODIUM 144 MMOL/L (136-145)
[2019-07-05] MEDS: Solu-MEDROL 40mg Inj IVP SCH (08:36)
--- NOTE | 2019-07-05 08:41 | General Progress Note ---
Assessment/Plan Problem List: (1) Tracheostomy hemorrhage ICD Codes: J95.01 - Hemorrhage from tracheostomy stoma SNOMED: 59499715 (2) Tracheostomy complication ICD Codes: J95.00 - Unspecified tracheostomy complication SNOMED: 01633107 (3) Cocaine abuse ICD Codes: F14.10 - Cocaine abuse, uncomplicated SNOMED: 36597229 (4) Angioedema ICD Codes: T78.3XXA - Angioneurotic edema, initial encounter SNOMED: 25116209 Qualifiers: Qualified Codes: T78.3XXA - Angioneurotic edema, initial encounter (5) Hypertension ICD Codes: I10 - Essential (primary) hypertension SNOMED: 07932709 Qualifiers: Qualified Codes: I10 - Essential (primary) hypertension Status: stable, progressing Assessment/Plan: vent resp care monitor for bleeding, pain rx iv steroids per pulm dvt/stress ulcer prophylaxis anxiolytics replace k speech follow up d/w GI Subjective ROS Limited/Unobtainable: No Constitutional: Reports: malaise, weakness HEENT: Reports: no symptoms Cardiovascular: Reports: no symptoms Respiratory: Reports: shortness of breath Gastrointestinal/Abdominal: Reports: difficulty swallowing Genitourinary: Reports: no symptoms Neurologic/Psychiatric: Reports: no symptoms Endocrine: Reports: no symptoms Hematologic/Lymphatic: Reports: anemia Allergies: Coded Allergies: No Known Allergies (Unverified , 06/29/19) All Systems: reviewed and negative except above Subjective no events. on the vent. no fever or chills. no bleeding. denies pain or sob. less agitated. on fentanyl drip. failed swallow eval. bp better controlled. low k. Objective Last 24 Hour Vital Signs Date Time Temp Pulse Resp B/P (MAP) Pulse Ox O2 Delivery O2 Flow Rate FiO2 07/05/19 08:38 19 Mechanical Ventilator 30 07/05/19 07:15 89 23 100 Mechanical Ventilator 30 07/05/19 07:07 80 18 100 Mechanical Ventilator 30 07/05/19 07:07 82 18 30 07/05/19 07:00 20 Mechanical Ventilator 30 07/05/19 06:45 89 20 156/94 (114) 100 07/05/19 06:30 81 19 146/87 (106) 99 07/05/19 06:15 84 19 151/84 (106) 97 07/05/19 06:00 88 20 152/93 (112) 96 07/05/19 06:00 20 Mechanical Ventilator 30 07/05/19 05:45 20 Mechanical Ventilator 30 07/05/19 05:45 92 21 146/97 (113) 97 07/05/19 05:30 141 30 165/110 (128) 100 07/05/19 05:08 85 21 30 07/05/19 05:00 85 23 140/81 (100) 100 07/05/19 05:00 20 Mechanical Ventilator 30 07/05/19 04:30 87 23 131/94 (106) 100 07/05/19 04:00 Mechanical Ventilator 07/05/19 04:00 99.1 87 25 157/89 (111) 100 07/05/19 04:00 30 07/05/19 04:00 20 Mechanical Ventilator 30 07/05/19 04:00 92 07/05/19 03:30 79 19 136/88 (104) 100 07/05/19 03:12 78 18 100 Mechanical Ventilator 30 07/05/19 03:00 76 18 128/83 (98) 100 07/05/19 03:00 20 Mechanical Ventilator 30 07/05/19 02:58 77 24 100 Mechanical Ventilator 30 07/05/19 02:56 76 20 30 07/05/19 02:30 78 19 130/82 (98) 100 07/05/19 02:08 98.2 07/05/19 02:00 77 19 124/79 (94) 100 07/05/19 02:00 30 07/05/19 02:00 20 Mechanical Ventilator 30 07/05/19 01:30 79 20 132/83 (99) 100 07/05/19 01:30 20 Mechanical Ventilator 30 07/05/19 01:15 78 19 40 07/05/19 01:00 20 Mechanical Ventilator 30 07/05/19 01:00 82 19 128/81 (97) 100 07/05/19 00:30 83 19 121/78 (92) 100 07/05/19 00:00 98.7 84 19 123/82 (96) 100 07/05/19 00:00 20 Mechanical Ventilator 30 07/05/19 00:00 Mechanical Ventilator 07/05/19 00:00 40 07/05/19 00:00 82 07/04/19 23:45 87 19 129/81 (97) 100 07/04/19 23:45 20 Mechanical Ventilator 30 07/04/19 23:30 20 Mechanical Ventilator 30 07/04/19 23:30 87 19 131/85 (100) 100 07/04/19 23:17 90 19 40 07/04/19 23:15 20 Mechanical Ventilator 30 07/04/19 23:15 96 20 137/86 (103) 100 07/04/19 23:00 20 Mechanical Ventilator 30 07/04/19 23:00 95 18 126/85 (99) 100 07/04/19 22:45 100 18 129/92 (104) 100 07/04/19 22:45 20 Mechanical Ventilator 30 07/04/19 22:30 101 18 123/82 (96) 100 07/04/19 22:30 20 Non-Rebreather 30 07/04/19 22:15 20 Mechanical Ventilator 30 07/04/19 22:15 97.8 07/04/19 22:15 104 19 128/88 (101) 100 07/04/19 22:00 106 20 146/96 (113) 100 07/04/19 22:00 20 Mechanical Ventilator 40 07/04/19 21:47 117 22 100 Mechanical Ventilator 40 07/04/19 21:45 20 Mechanical Ventilator 30 07/04/19 21:45 107 18 154/97 (116) 100 07/04/19 21:37 121 26 100 Mechanical Ventilator 40 07/04/19 21:30 126 23 157/99 (118) 93 07/04/19 21:30 20 Mechanical Ventilator 30 07/04/19 21:15 20 Mechanical Ventilator 30 07/04/19 21:15 115 31 169/95 (119) 100 07/04/19 21:00 20 Mechanical Ventilator 30 07/04/19 21:00 129 30 158/123 (135) 93 07/04/19 20:48 114 22 40 07/04/19 20:45 40 07/04/19 20:45 20 Mechanical Ventilator 30 07/04/19 20:15 128 29 163/111 (128) 98 07/04/19 20:00 98.6 109 30 145/117 (126) 99 07/04/19 20:00 Trach Collar 07/04/19 20:00 92 07/04/19 19:22 97 Cool Aerosol 8.0 30 07/04/19 19:00 116 163/85 (111) 96 07/04/19 18:32 180/95 07/04/19 18:00 97.8 64 25 170/90 (116) 100 07/04/19 17:16 100 Cool Aerosol 8.0 30 07/04/19 17:00 72 19 161/82 (108) 97 07/04/19 16:16 30 07/04/19 16:00 Trach Collar 07/04/19 16:00 75 07/04/19 16:00 30 07/04/19 16:00 67 21 160/80 (106) 99 07/04/19 15:47 160/92 07/04/19 15:00 63 19 160/92 (114) 100 07/04/19 14:37 63 20 30 07/04/19 14:00 109 26 189/90 (123) 88 07/04/19 13:02 84 23 30 07/04/19 13:00 66 23 172/94 (120) 100 07/04/19 12:16 167/91 07/04/19 12:00 30 07/04/19 12:00 59 07/04/19 12:00 Mechanical Ventilator 07/04/19 12:00 89.9 56 19 167/91 (116) 100 07/04/19 11:01 62 17 30 07/04/19 11:00 59 18 158/91 (113) 100 07/04/19 11:00 30 07/04/19 10:30 54 18 168/83 (111) 100 07/04/19 10:00 71 21 169/87 (114) 99 07/04/19 09:30 58 19 160/92 (114) 100 07/04/19 09:00 56 18 161/86 (111) 100 07/04/19 08:57 56 19 30 Intake and Output 07/04/19 07/05/19 19:00 07:00 Intake Total 1112 ml 1450 ml Output Total 445 ml 1025 ml Balance 667 ml 425 ml Intake IV Total 1112 ml 1450 ml Output Urine Total 445 ml 1025 ml Laboratory Tests 07/04/19 20:21: Arterial Blood pH 7.384, Arterial Blood Partial Pressure CO2 26.4L, Arterial Blood Partial Pressure O2 79.3, Arterial Blood HCO3 15.4*L, Arterial Blood Oxygen Saturation 94.8L, Arterial Blood Base Excess -8.3L, Maxim Test Positive 07/05/19 05:50: White Blood Count 15.9H, Red Blood Count 3.14L, Hemoglobin 9.8L, Hematocrit 29.6L, Mean Corpuscular Volume 94, Mean Corpuscular Hemoglobin 31.3H, Mean Corpuscular Hemoglobin Concent 33.2, Red Cell Distribution Width 15.5H, Platelet Count 138L, Mean Platelet Volume 9.7, Neutrophils (%) (Auto) 81.9H, Lymphocytes (%) (Auto) 7.1L, Monocytes (%) (Auto) 9.6, Eosinophils (%) (Auto) 0.3, Basophils (%) (Auto) 1.1, Lymphocytes [Pending], Sodium Level 144, Potassium Level 3.2L, Chloride Level 113H, Carbon Dioxide Level 19L, Anion Gap 12, Blood Urea Nitrogen 35H, Creatinine 2.3H, Estimat Glomerular Filtration Rate 26.3, Glucose Level 106, Calcium Level 8.1L, Total Bilirubin 0.6, Aspartate Amino Transf (AST/SGOT) 51H, Alanine Aminotransferase (ALT/SGPT) 214H , Alkaline Phosphatase 67, Total Creatine Kinase 176, Total Protein 6.2L, Albumin 2.7L, Globulin 3.5, Albumin/Globulin Ratio 0.8L, Lipase 751H, Percent CD3 Cells [Pending], Absolute CD3 Count [Pending], Percent CD4 Cells [Pending], Absolute CD4 Count [Pending], T-Lymphocyte CD4/CD8 Ratio [Pending], Percent CD8 Cells [Pending], Absolute CD8 Count [Pending], HIV-1 RNA (PCR) log10 Value [ Pending], HIV-1 RNA Ultraquantitative (PCR) [Pending] Height (Feet): 5 Height (Inches): 4.00 Weight (Pounds): 170 Objective General Appearance: WD/WN, alert Neck: supple, other - trach midline Cardiovascular: normal rate, regular rhythm Respiratory/Chest: chest wall non-tender, lungs clear, normal breath sounds, no respiratory distress Abdomen: normal bowel sounds, non tender, soft, no organomegaly Edema: no edema noted Arm (L), no edema noted Arm (R), no edema noted Leg (L), no edema noted Leg (R), no edema noted Pedal (L), no edema noted Pedal (R), no edema noted Generalized Danis Markham MD Jul 05, 2019 08:41
--- NOTE | 2019-07-05 10:34 | Infectious Diseases Prog Note ---
Assessment/Plan Assessment/Plan antibiotics : none A 1. leucocytosis improving 2. angioedema 3. respiratory failure s/p emergent tracheostomy 4. HIV, cd4 pending 5. renal failure improving P 1. continue off antibiotics Subjective ROS Limited/Unobtainable: Yes Allergies: Coded Allergies: No Known Allergies (Unverified , 06/29/19) Objective Vital Signs Last 24 Hour Vital Signs Date Time Temp Pulse Resp B/P (MAP) Pulse Ox O2 Delivery O2 Flow Rate FiO2 07/05/19 08:46 93 21 30 07/05/19 08:38 19 Mechanical Ventilator 30 07/05/19 07:15 89 23 100 Mechanical Ventilator 30 07/05/19 07:07 80 18 100 Mechanical Ventilator 30 07/05/19 07:07 82 18 30 07/05/19 07:00 20 Mechanical Ventilator 30 07/05/19 06:45 89 20 156/94 (114) 100 07/05/19 06:30 81 19 146/87 (106) 99 07/05/19 06:15 84 19 151/84 (106) 97 07/05/19 06:00 88 20 152/93 (112) 96 07/05/19 06:00 20 Mechanical Ventilator 30 07/05/19 05:45 20 Mechanical Ventilator 30 07/05/19 05:45 92 21 146/97 (113) 97 07/05/19 05:30 141 30 165/110 (128) 100 07/05/19 05:08 85 21 30 07/05/19 05:00 85 23 140/81 (100) 100 07/05/19 05:00 20 Mechanical Ventilator 30 07/05/19 04:30 87 23 131/94 (106) 100 07/05/19 04:00 Mechanical Ventilator 07/05/19 04:00 99.1 87 25 157/89 (111) 100 07/05/19 04:00 30 07/05/19 04:00 20 Mechanical Ventilator 30 07/05/19 04:00 92 07/05/19 03:30 79 19 136/88 (104) 100 07/05/19 03:12 78 18 100 Mechanical Ventilator 30 07/05/19 03:00 76 18 128/83 (98) 100 07/05/19 03:00 20 Mechanical Ventilator 30 07/05/19 02:58 77 24 100 Mechanical Ventilator 30 07/05/19 02:56 76 20 30 07/05/19 02:30 78 19 130/82 (98) 100 07/05/19 02:08 98.2 07/05/19 02:00 77 19 124/79 (94) 100 07/05/19 02:00 30 07/05/19 02:00 20 Mechanical Ventilator 30 07/05/19 01:30 79 20 132/83 (99) 100 07/05/19 01:30 20 Mechanical Ventilator 30 07/05/19 01:15 78 19 40 07/05/19 01:00 20 Mechanical Ventilator 30 07/05/19 01:00 82 19 128/81 (97) 100 07/05/19 00:30 83 19 121/78 (92) 100 07/05/19 00:00 98.7 84 19 123/82 (96) 100 07/05/19 00:00 20 Mechanical Ventilator 30 07/05/19 00:00 Mechanical Ventilator 07/05/19 00:00 40 07/05/19 00:00 82 07/04/19 23:45 87 19 129/81 (97) 100 07/04/19 23:45 20 Mechanical Ventilator 30 07/04/19 23:30 20 Mechanical Ventilator 30 07/04/19 23:30 87 19 131/85 (100) 100 07/04/19 23:17 90 19 40 07/04/19 23:15 20 Mechanical Ventilator 30 07/04/19 23:15 96 20 137/86 (103) 100 07/04/19 23:00 20 Mechanical Ventilator 30 07/04/19 23:00 95 18 126/85 (99) 100 07/04/19 22:45 100 18 129/92 (104) 100 07/04/19 22:45 20 Mechanical Ventilator 30 07/04/19 22:30 101 18 123/82 (96) 100 07/04/19 22:30 20 Non-Rebreather 30 07/04/19 22:15 20 Mechanical Ventilator 30 07/04/19 22:15 97.8 07/04/19 22:15 104 19 128/88 (101) 100 07/04/19 22:00 106 20 146/96 (113) 100 07/04/19 22:00 20 Mechanical Ventilator 40 07/04/19 21:47 117 22 100 Mechanical Ventilator 40 07/04/19 21:45 20 Mechanical Ventilator 30 07/04/19 21:45 107 18 154/97 (116) 100 07/04/19 21:37 121 26 100 Mechanical Ventilator 40 07/04/19 21:30 126 23 157/99 (118) 93 07/04/19 21:30 20 Mechanical Ventilator 30 07/04/19 21:15 20 Mechanical Ventilator 30 07/04/19 21:15 115 31 169/95 (119) 100 07/04/19 21:00 20 Mechanical Ventilator 30 07/04/19 21:00 129 30 158/123 (135) 93 07/04/19 20:48 114 22 40 07/04/19 20:45 40 07/04/19 20:45 20 Mechanical Ventilator 30 07/04/19 20:15 128 29 163/111 (128) 98 07/04/19 20:00 98.6 109 30 145/117 (126) 99 07/04/19 20:00 Trach Collar 07/04/19 20:00 92 07/04/19 19:22 97 Cool Aerosol 8.0 30 07/04/19 19:00 116 163/85 (111) 96 07/04/19 18:32 180/95 07/04/19 18:00 97.8 64 25 170/90 (116) 100 07/04/19 17:16 100 Cool Aerosol 8.0 30 07/04/19 17:00 72 19 161/82 (108) 97 07/04/19 16:16 30 07/04/19 16:00 Trach Collar 07/04/19 16:00 75 07/04/19 16:00 30 07/04/19 16:00 67 21 160/80 (106) 99 07/04/19 15:47 160/92 07/04/19 15:00 63 19 160/92 (114) 100 07/04/19 14:37 63 20 30 07/04/19 14:00 109 26 189/90 (123) 88 07/04/19 13:02 84 23 30 07/04/19 13:00 66 23 172/94 (120) 100 07/04/19 12:16 167/91 07/04/19 12:00 30 07/04/19 12:00 59 07/04/19 12:00 Mechanical Ventilator 07/04/19 12:00 89.9 56 19 167/91 (116) 100 07/04/19 11:01 62 17 30 8/22/19 11:00 59 18 158/91 (113) 100 07/04/19 11:00 30 Height (Feet): 5 Height (Inches): 4.00 Weight (Pounds): 170 HEENT: status post trach Respiratory/Chest: lungs clear Cardiovascular: normal rate, regular rhythm, no gallop/murmur Abdomen: soft, non tender Extremities: no edema, other - right and left groin catheter Laboratory Tests Test 07/04/19 20:21 07/05/19 05:50 Arterial Blood pH 7.384 (7.350-7.450) Arterial Blood Partial Pressure CO2 26.4 mmHg (35.0-45.0) L Arterial Blood Partial Pressure O2 79.3 mmHg (75.0-100.0) Arterial Blood HCO3 15.4 mmol/L (22.0-26.0) *L Arterial Blood Oxygen Saturation 94.8 % (95-100) L Arterial Blood Base Excess -8.3 (-2-2) L Maxim Test Positive White Blood Count 15.9 K/UL (4.8-10.8) H Red Blood Count 3.14 M/UL (4.20-5.40) L Hemoglobin 9.8 G/DL (12.0-16.0) L Hematocrit 29.6 % (37.0-47.0) L Mean Corpuscular Volume 94 FL (80-99) Mean Corpuscular Hemoglobin 31.3 PG (27.0-31.0) H Mean Corpuscular Hemoglobin Concent 33.2 G/DL (32.0-36.0) Red Cell Distribution Width 15.5 % (11.6-14.8) H Platelet Count 138 K/UL (150-450) L Mean Platelet Volume 9.7 FL (6.5-10.1) Neutrophils (%) (Auto) 81.9 % (45.0-75.0) H Lymphocytes (%) (Auto) 7.1 % (20.0-45.0) L Monocytes (%) (Auto) 9.6 % (1.0-10.0) Eosinophils (%) (Auto) 0.3 % (0.0-3.0) Basophils (%) (Auto) 1.1 % (0.0-2.0) Lymphocytes Pending Sodium Level 144 MMOL/L (136-145) Potassium Level 3.2 MMOL/L (3.5-5.1) L Chloride Level 113 MMOL/L (98-107) H Carbon Dioxide Level 19 MMOL/L (21-32) L Anion Gap 12 mmol/L (5-15) Blood Urea Nitrogen 35 mg/dL (7-18) H Creatinine 2.3 MG/DL (0.55-1.30) H Estimat Glomerular Filtration Rate 26.3 mL/min (>60) Glucose Level 106 MG/DL (74-106) Calcium Level 8.1 MG/DL (8.5-10.1) L Total Bilirubin 0.6 MG/DL (0.2-1.0) Aspartate Amino Transf (AST/SGOT) 51 U/L (15-37) H Alanine Aminotransferase (ALT/SGPT) 214 U/L (12-78) H Alkaline Phosphatase 67 U/L (46-116) Total Creatine Kinase 176 U/L (26-308) Total Protein 6.2 G/DL (6.4-8.2) L Albumin 2.7 G/DL (3.4-5.0) L Globulin 3.5 g/dL Albumin/Globulin Ratio 0.8 (1.0-2.7) L Lipase 751 U/L (73-393) H Percent CD3 Cells Pending Absolute CD3 Count Pending Percent CD4 Cells Pending Absolute CD4 Count Pending T-Lymphocyte CD4/CD8 Ratio Pending Percent CD8 Cells Pending Absolute CD8 Count Pending HIV-1 RNA (PCR) log10 Value Pending HIV-1 RNA Ultraquantitative (PCR) Pending Current Medications Medications (Trade) Dose Ordered Sig/Dmitri Route PRN Reason Start Time Stop Time Status Last Admin Dose Admin Acetaminophen (Tylenol) 650 mg Q4H PRN RECTAL FEVER 06/29/19 11:01 07/29/19 11:00 Albuterol/ Ipratropium (Albuterol/ Ipratropium) 3 ml Q4HRT HHN 07/04/19 20:55 07/09/19 20:54 07/05/19 07:07 Chlorhexidine Gluconate (Lynn-Hex 2%) 1 applic DAILY@1999 TOPIC 06/29/19 20:00 07/29/19 19:59 07/04/19 20:06 Clonidine HCl (Catapres TTS-1) 1 patch QWEEK TDERMAL 07/04/19 15:00 08/03/19 14:59 07/04/19 15:47 Dextrose (Dextrose 50%) 25 ml Q30M PRN IV Hypoglycemia 06/30/19 15:00 07/30/19 14:59 Dextrose (Dextrose 50%) 50 ml Q30M PRN IV Hypoglycemia 06/30/19 15:00 07/30/19 14:59 Dextrose/Sodium Chloride 1,000 ml @ 125 mls/hr Q8H IV 06/30/19 09:00 07/30/19 08:59 07/05/19 08:36 Diphenhydramine HCl (Benadryl) 25 mg Q6H PRN IVP Muscle Spasm 06/29/19 11:01 07/29/19 11:00 07/04/19 20:06 Epinephrine 1 mg/ Dextrose 250 ml @ 0 mls/hr Q24H IV 06/29/19 16:00 07/29/19 15:59 Epoetin Eric (Epoetin Eric(ESRD on dialysis)) 8,000 unit MON- SUBQ 07/01/19 21:00 07/31/19 20:59 07/03/19 20:37 Famotidine (Pepcid I.v.) 20 mg Q12HR IVP 06/30/19 21:00 07/30/19 20:59 07/05/19 08:36 Fentanyl Citrate 2500 mcg/Sodium Chloride 250 ml @ 0 mls/hr Q24H IV 06/29/19 12:30 07/06/19 12:29 07/05/19 08:38 Hydralazine HCl (Apresoline) 10 mg Q2H PRN IV For High Blood Pressure 07/02/19 21:15 08/01/19 21:14 07/04/19 18:32 Hydromorphone HCl (Dilaudid) 0.5 mg Q3H PRN IVP Pain Score 1-3 06/29/19 11:02 07/06/19 11:01 07/04/19 12:08 Hydromorphone HCl (Dilaudid) 1 mg Q3H PRN IVP pain score 4-6 06/29/19 11:02 07/06/19 11:01 Hydromorphone HCl (Dilaudid) 2 mg Q3H PRN IVP pain score 7-10 06/29/19 11:02 07/06/19 11:01 07/04/19 21:39 Insulin Aspart (NovoLOG) BEFORE MEALS AND HS SUBQ 06/30/19 16:30 07/30/19 16:29 07/04/19 21:28 Lorazepam (Ativan 2mg/ml 1ml) 0.5 mg Q24HRS PRN IV Agitation 06/29/19 11:36 07/06/19 11:35 07/04/19 14:51 Lorazepam (Ativan 2mg/ml 1ml) 2 mg Q4H PRN IV For Anxiety 07/03/19 09:15 07/10/19 09:14 07/04/19 20:21 Methylprednisolone Sodium Succinate (Solu-MEDROL) 40 mg DAILY IVP 07/05/19 09:00 07/29/19 13:59 07/05/19 08:36 Metoclopramide HCl (Reglan) 10 mg Q6H PRN IVP Nausea & Vomiting 06/29/19 11:01 07/29/19 11:00 Norepinephrine Bitartrate 8 mg/ Dextrose 508 ml @ 0 mls/hr Q24H IV 06/29/19 12:30 07/29/19 12:29 06/30/19 11:42 Ondansetron HCl (Zofran) 4 mg Q6H PRN IVP Nausea & Vomiting 06/29/19 11:01 07/29/19 11:00 Potassium Chloride 100 ml @ 100 mls/hr Q1HR IVPB 07/05/19 09:00 07/05/19 11:59 07/05/19 10:00 Thiamine HCl 100 mg/Dextrose 56 ml @ 112 mls/hr DAILY IVPB 07/03/19 11:00 08/02/19 10:59 07/04/19 10:06 Vasopressin 100 units/Sodium Chloride 100 ml @ 2.4 mls/hr Q24H IV 06/29/19 14:15 07/29/19 14:14 06/30/19 15:40 Robert Adams MD Jul 05, 2019 10:34
[2019-07-05] MEDS: Thiamine HCl 100 MG in D5W 55 ML IVPB SCH (10:37)
[2019-07-05] MEDS: Vasopressin 100 UNITS in NS 95 ML IV SCH (13:15)
--- NOTE | 2019-07-05 13:41 | Cardiac Electrophysiology PN ---
Assessment/Plan Assessment/Plan 1. Angioedema, s/p emergency tracheostomy on the Vent Weaning protocol in progress 2. S/P Hypotension, 3. Hx of Hypertension 4. Cocaine abuse 5. ARF. Last HD and no further 6. Anemia partial blood loss during tracheostomy DW RN Subjective Subjective Intubated via tracheostomy in ICU. Off Pressors. Failed weaning today Objective Last 24 Hour Vital Signs Date Time Temp Pulse Resp B/P (MAP) Pulse Ox O2 Delivery O2 Flow Rate FiO2 07/05/19 13:18 72 23 30 07/05/19 12:30 72 19 142/95 (111) 99 07/05/19 12:00 98.8 74 18 123/78 (93) 99 07/05/19 11:30 78 19 128/75 (92) 99 07/05/19 11:00 83 19 134/79 (97) 100 07/05/19 10:45 75 18 100 Mechanical Ventilator 30 07/05/19 10:38 68 18 100 Mechanical Ventilator 30 07/05/19 10:37 71 19 30 07/05/19 10:37 Mechanical Ventilator 07/05/19 10:30 73 18 129/88 (102) 99 07/05/19 10:00 71 19 130/80 (97) 99 07/05/19 09:38 Mechanical Ventilator 07/05/19 09:30 83 18 133/86 (102) 100 07/05/19 09:00 77 19 138/83 (101) 100 07/05/19 08:46 93 21 30 07/05/19 08:38 19 Mechanical Ventilator 30 07/05/19 08:30 74 19 148/86 (106) 99 07/05/19 08:00 30 07/05/19 08:00 84 07/05/19 08:00 Mechanical Ventilator 07/05/19 08:00 98.9 84 19 136/88 (104) 100 07/05/19 08:00 Mechanical Ventilator 07/05/19 07:30 84 18 141/81 (101) 99 07/05/19 07:15 89 23 100 Mechanical Ventilator 30 07/05/19 07:07 80 18 100 Mechanical Ventilator 30 07/05/19 07:07 82 18 30 07/05/19 07:00 81 19 142/84 (103) 98 07/05/19 07:00 20 Mechanical Ventilator 30 07/05/19 06:45 89 20 156/94 (114) 100 07/05/19 06:30 81 19 146/87 (106) 99 07/05/19 06:15 84 19 151/84 (106) 97 07/05/19 06:00 88 20 152/93 (112) 96 07/05/19 06:00 20 Mechanical Ventilator 30 07/05/19 05:45 20 Mechanical Ventilator 30 07/05/19 05:45 92 21 146/97 (113) 97 07/05/19 05:30 141 30 165/110 (128) 100 07/05/19 05:08 85 21 30 07/05/19 05:00 85 23 140/81 (100) 100 07/05/19 05:00 20 Mechanical Ventilator 30 07/05/19 04:30 87 23 131/94 (106) 100 07/05/19 04:00 Mechanical Ventilator 07/05/19 04:00 99.1 87 25 157/89 (111) 100 07/05/19 04:00 30 07/05/19 04:00 20 Mechanical Ventilator 30 07/05/19 04:00 92 07/05/19 03:30 79 19 136/88 (104) 100 07/05/19 03:12 78 18 100 Mechanical Ventilator 30 07/05/19 03:00 76 18 128/83 (98) 100 07/05/19 03:00 20 Mechanical Ventilator 30 07/05/19 02:58 77 24 100 Mechanical Ventilator 30 07/05/19 02:56 76 20 30 07/05/19 02:30 78 19 130/82 (98) 100 07/05/19 02:08 98.2 07/05/19 02:00 77 19 124/79 (94) 100 07/05/19 02:00 30 07/05/19 02:00 20 Mechanical Ventilator 30 07/05/19 01:30 79 20 132/83 (99) 100 07/05/19 01:30 20 Mechanical Ventilator 30 07/05/19 01:15 78 19 40 07/05/19 01:00 20 Mechanical Ventilator 30 07/05/19 01:00 82 19 128/81 (97) 100 07/05/19 00:30 83 19 121/78 (92) 100 07/05/19 00:00 98.7 84 19 123/82 (96) 100 07/05/19 00:00 20 Mechanical Ventilator 30 07/05/19 00:00 Mechanical Ventilator 07/05/19 00:00 40 07/05/19 00:00 82 07/04/19 23:45 87 19 129/81 (97) 100 07/04/19 23:45 20 Mechanical Ventilator 30 07/04/19 23:30 20 Mechanical Ventilator 30 07/04/19 23:30 87 19 131/85 (100) 100 07/04/19 23:17 90 19 40 07/04/19 23:15 20 Mechanical Ventilator 30 07/04/19 23:15 96 20 137/86 (103) 100 07/04/19 23:00 20 Mechanical Ventilator 30 07/04/19 23:00 95 18 126/85 (99) 100 07/04/19 22:45 100 18 129/92 (104) 100 07/04/19 22:45 20 Mechanical Ventilator 30 07/04/19 22:30 101 18 123/82 (96) 100 07/04/19 22:30 20 Non-Rebreather 30 07/04/19 22:15 20 Mechanical Ventilator 30 07/04/19 22:15 97.8 07/04/19 22:15 104 19 128/88 (101) 100 07/04/19 22:00 106 20 146/96 (113) 100 07/04/19 22:00 20 Mechanical Ventilator 40 07/04/19 21:47 117 22 100 Mechanical Ventilator 40 07/04/19 21:45 20 Mechanical Ventilator 30 07/04/19 21:45 107 18 154/97 (116) 100 07/04/19 21:37 121 26 100 Mechanical Ventilator 40 07/04/19 21:30 126 23 157/99 (118) 93 07/04/19 21:30 20 Mechanical Ventilator 30 07/04/19 21:15 20 Mechanical Ventilator 30 07/04/19 21:15 115 31 169/95 (119) 100 07/04/19 21:00 20 Mechanical Ventilator 30 07/04/19 21:00 129 30 158/123 (135) 93 07/04/19 20:48 114 22 40 07/04/19 20:45 40 07/04/19 20:45 20 Mechanical Ventilator 30 07/04/19 20:15 128 29 163/111 (128) 98 07/04/19 20:00 98.6 109 30 145/117 (126) 99 07/04/19 20:00 Trach Collar 07/04/19 20:00 92 07/04/19 19:22 97 Cool Aerosol 8.0 30 07/04/19 19:00 116 163/85 (111) 96 07/04/19 18:32 180/95 07/04/19 18:00 97.8 64 25 170/90 (116) 100 07/04/19 17:16 100 Cool Aerosol 8.0 30 07/04/19 17:00 72 19 161/82 (108) 97 07/04/19 16:16 30 07/04/19 16:00 Trach Collar 07/04/19 16:00 75 07/04/19 16:00 30 07/04/19 16:00 67 21 160/80 (106) 99 07/04/19 15:47 160/92 07/04/19 15:00 63 19 160/92 (114) 100 07/04/19 14:37 63 20 30 07/04/19 14:00 109 26 189/90 (123) 88 Intake and Output 07/04/19 07/05/19 18:59 06:59 Intake Total 987 ml 1540 ml Output Total 440 ml 985 ml Balance 547 ml 555 ml Intake IV Total 987 ml 1540 ml Output Urine Total 440 ml 985 ml Laboratory Tests Test 07/04/19 20:21 07/05/19 05:50 Arterial Blood pH 7.384 (7.350-7.450) Arterial Blood Partial Pressure CO2 26.4 mmHg (35.0-45.0) L Arterial Blood Partial Pressure O2 79.3 mmHg (75.0-100.0) Arterial Blood HCO3 15.4 mmol/L (22.0-26.0) *L Arterial Blood Oxygen Saturation 94.8 % (95-100) L Arterial Blood Base Excess -8.3 (-2-2) L Maxim Test Positive White Blood Count 15.9 K/UL (4.8-10.8) H Red Blood Count 3.14 M/UL (4.20-5.40) L Hemoglobin 9.8 G/DL (12.0-16.0) L Hematocrit 29.6 % (37.0-47.0) L Mean Corpuscular Volume 94 FL (80-99) Mean Corpuscular Hemoglobin 31.3 PG (27.0-31.0) H Mean Corpuscular Hemoglobin Concent 33.2 G/DL (32.0-36.0) Red Cell Distribution Width 15.5 % (11.6-14.8) H Platelet Count 138 K/UL (150-450) L Mean Platelet Volume 9.7 FL (6.5-10.1) Neutrophils (%) (Auto) 81.9 % (45.0-75.0) H Lymphocytes (%) (Auto) 7.1 % (20.0-45.0) L Monocytes (%) (Auto) 9.6 % (1.0-10.0) Eosinophils (%) (Auto) 0.3 % (0.0-3.0) Basophils (%) (Auto) 1.1 % (0.0-2.0) Lymphocytes Pending Sodium Level 144 MMOL/L (136-145) Potassium Level 3.2 MMOL/L (3.5-5.1) L Chloride Level 113 MMOL/L (98-107) H Carbon Dioxide Level 19 MMOL/L (21-32) L Anion Gap 12 mmol/L (5-15) Blood Urea Nitrogen 35 mg/dL (7-18) H Creatinine 2.3 MG/DL (0.55-1.30) H Estimat Glomerular Filtration Rate 26.3 mL/min (>60) Glucose Level 106 MG/DL (74-106) Calcium Level 8.1 MG/DL (8.5-10.1) L Total Bilirubin 0.6 MG/DL (0.2-1.0) Aspartate Amino Transf (AST/SGOT) 51 U/L (15-37) H Alanine Aminotransferase (ALT/SGPT) 214 U/L (12-78) H Alkaline Phosphatase 67 U/L (46-116) Total Creatine Kinase 176 U/L (26-308) Total Protein 6.2 G/DL (6.4-8.2) L Albumin 2.7 G/DL (3.4-5.0) L Globulin 3.5 g/dL Albumin/Globulin Ratio 0.8 (1.0-2.7) L Lipase 751 U/L (73-393) H Percent CD3 Cells Pending Absolute CD3 Count Pending Percent CD4 Cells Pending Absolute CD4 Count Pending T-Lymphocyte CD4/CD8 Ratio Pending Percent CD8 Cells Pending Absolute CD8 Count Pending HIV-1 RNA (PCR) log10 Value Pending HIV-1 RNA Ultraquantitative (PCR) Pending Objective HEENT: Tracheostomy in place LUNGS: Coarse rhonchi CVS: RRR ABDOMEN: Obese EXT: No edema. Left groin Jeison Catheter Giles Rodarte MD Jul 05, 2019 13:41
[2019-07-05] MEDS: EPINEPHrine 1mg/1ml Amp 1 MG in D5W 249 ML IV SCH (15:02)
--- NOTE | 2019-07-05 15:08 | Hematology/Onc Progress Note ---
Assessment/Plan Assessment/Plan A/R # Thrombocytopenia - potential causes multifactorial, evaluate liver and viral etiologies to begin, also could be related to underlying medications patient has received. HIV is ++ --> Hep panel and HIV is ++ --> per id care --> US abd to evaluate for cirrhosis and hsm ordered --> Ectatic pancreatic duct. Significance/etiology uncertain. This can be seen in chronic pancreatitis as well as ductectatic neoplasm--> once more stable get Ct with iv cont --> DIC panel has been reviewed, NEgative --> Peripheral smear ordered to evaluate for blasts /schistocytes and none noted --> abx and other meds have been reviewed --> ok for ppx if plt >50k w/ either heparin or lovenox --> Transfuse if Plt < 20k and fever, or if Plt < 10k without fever --> plt trend 200-->87-->60-->38k-> 50k-->91k-->110k-->138k -> [id number] ordered -- > is neg --> consider id eval for hiv # Anemia of chronic disease due to underlying chronic medical issues, multifactorial --> Anemia workup has been ordered and c/w acd --> No evidence of hemolysis is noted, peripheral smear has been reviewed. --> Hgb goal >7. Transfuse prn. --> Epogen or iron at this time is not particularly indicated --> Medications have been reviewed --> low threshold for gi evaluation in case has occult + --> hgb trend 8.7--> 9-->10.9-->9.7 # Leukocytosis --> wbc trend 17-->15-->14k->16-->19.4-->15-->15.9 --> steriods for angioedema # Angioedeam --> ffp, steriods given --> s/p trach # Resp failure s/p trach --> to vent # Severe Hypotension , Now off both pressors. # Hx of Hypertension # Cocaine abuse # ARF on HD now --> 07/02, 07/03 hd # HIV++ The timing of this note does not necessarily reflect the time of the patient was seen. GREATLY APPRECIATE CONSULTATION. Subjective Allergies: Coded Allergies: No Known Allergies (Unverified , 8/17/19) Subjective 07/02: remains in the icu, onpressors and epogen, hgb stable 07/03: in icu, no events, on vent, no fever or chills, denies pain or sob 07/04: s/p vent/trach, on fentanyl gtt, id made aware of HIV++ 07/05: sedated, trach, off abx, labs reviewed Objective Objective Current Medications Medications (Trade) Dose Ordered Sig/Dmitri Route PRN Reason Start Time Stop Time Status Last Admin Dose Admin Acetaminophen (Tylenol) 650 mg Q4H PRN RECTAL FEVER 06/29/19 11:01 07/29/19 11:00 Albuterol/ Ipratropium (Albuterol/ Ipratropium) 3 ml Q4HRT HHN 07/04/19 20:55 07/09/19 20:54 07/05/19 14:48 Chlorhexidine Gluconate (Lynn-Hex 2%) 1 applic DAILY@2000 TOPIC 06/29/19 20:00 07/29/19 19:59 07/04/19 20:06 Clonidine HCl (Catapres TTS-1) 1 patch QWEEK TDERMAL 07/04/19 15:00 08/03/19 14:59 07/04/19 15:47 Dextrose (Dextrose 50%) 25 ml Q30M PRN IV Hypoglycemia 06/30/19 15:00 07/30/19 14:59 Dextrose (Dextrose 50%) 50 ml Q30M PRN IV Hypoglycemia 06/30/19 15:00 07/30/19 14:59 Dextrose/Sodium Chloride 1,000 ml @ 125 mls/hr Q8H IV 06/30/19 09:00 07/30/19 08:59 07/05/19 08:36 Diphenhydramine HCl (Benadryl) 25 mg Q6H PRN IVP Muscle Spasm 06/29/19 11:01 07/29/19 11:00 07/04/19 20:06 Epinephrine 1 mg/ Dextrose 250 ml @ 0 mls/hr Q24H IV 06/29/19 16:00 07/29/19 15:59 Epoetin Eric (Epoetin Eric(ESRD on dialysis)) 8,000 unit MON-MON-MON SUBQ 07/01/19 21:00 07/31/19 20:59 07/03/19 20:37 Famotidine (Pepcid I.v.) 20 mg Q12HR IVP 06/30/19 21:00 07/30/19 20:59 07/05/19 08:36 Fentanyl Citrate 2500 mcg/Sodium Chloride 250 ml @ 0 mls/hr Q24H IV 06/29/19 12:30 07/06/19 12:29 07/05/19 08:38 Hydralazine HCl (Apresoline) 10 mg Q2H PRN IV For High Blood Pressure 07/02/19 21:15 08/01/19 21:14 07/04/19 18:32 Hydromorphone HCl (Dilaudid) 0.5 mg Q3H PRN IVP Pain Score 1-3 06/29/19 11:02 07/06/19 11:01 07/04/19 12:08 Hydromorphone HCl (Dilaudid) 1 mg Q3H PRN IVP pain score 4-6 06/29/19 11:02 07/06/19 11:01 Hydromorphone HCl (Dilaudid) 2 mg Q3H PRN IVP pain score 7-10 06/29/19 11:02 07/06/19 11:01 07/04/19 21:39 Insulin Aspart (NovoLOG) BEFORE MEALS AND HS SUBQ 06/30/19 16:30 07/30/19 16:29 07/05/19 12:18 Lorazepam (Ativan 2mg/ml 1ml) 0.5 mg Q24HRS PRN IV Agitation 06/29/19 11:36 07/06/19 11:35 07/04/19 14:51 Lorazepam (Ativan 2mg/ml 1ml) 2 mg Q4H PRN IV For Anxiety 07/03/19 09:15 07/10/19 09:14 07/04/19 20:21 Methylprednisolone Sodium Succinate (Solu-MEDROL) 40 mg DAILY IVP 07/05/19 09:00 07/29/19 13:59 07/05/19 08:36 Metoclopramide HCl (Reglan) 10 mg Q6H PRN IVP Nausea & Vomiting 06/29/19 11:01 07/29/19 11:00 Norepinephrine Bitartrate 8 mg/ Dextrose 508 ml @ 0 mls/hr Q24H IV 06/29/19 12:30 07/29/19 12:29 06/30/19 11:42 Ondansetron HCl (Zofran) 4 mg Q6H PRN IVP Nausea & Vomiting 06/29/19 11:01 07/29/19 11:00 Thiamine HCl 100 mg/Dextrose 56 ml @ 112 mls/hr DAILY IVPB 07/03/19 11:00 08/02/19 10:59 07/05/19 10:37 Vasopressin 100 units/Sodium Chloride 100 ml @ 2.4 mls/hr Q24H IV 06/29/19 14:15 07/29/19 14:14 06/30/19 15:40 Last 24 Hour Vital Signs Date Time Temp Pulse Resp B/P (MAP) Pulse Ox O2 Delivery O2 Flow Rate FiO2 07/05/19 14:48 67 18 100 Mechanical Ventilator 30 07/05/19 14:46 67 18 30 07/05/19 13:18 72 23 30 07/05/19 12:30 72 19 142/95 (111) 99 07/05/19 12:00 98.8 74 18 123/78 (93) 99 07/05/19 11:56 68 18 100 Mechanical Ventilator 30 07/05/19 11:30 78 19 128/75 (92) 99 07/05/19 11:00 83 19 134/79 (97) 100 07/05/19 10:45 75 18 100 Mechanical Ventilator 30 07/05/19 10:38 68 18 100 Mechanical Ventilator 30 07/05/19 10:37 71 19 30 07/05/19 10:37 Mechanical Ventilator 07/05/19 10:30 73 18 129/88 (102) 99 07/05/19 10:00 71 19 130/80 (97) 99 07/05/19 09:38 Mechanical Ventilator 07/05/19 09:30 83 18 133/86 (102) 100 07/05/19 09:00 77 19 138/83 (101) 100 07/05/19 08:46 93 21 30 07/05/19 08:38 19 Mechanical Ventilator 30 07/05/19 08:30 74 19 148/86 (106) 99 07/05/19 08:00 30 07/05/19 08:00 84 8/23/19 08:00 Mechanical Ventilator 07/05/19 08:00 98.9 84 19 136/88 (104) 100 07/05/19 08:00 Mechanical Ventilator 07/05/19 07:30 84 18 141/81 (101) 99 07/05/19 07:15 89 23 100 Mechanical Ventilator 30 07/05/19 07:07 80 18 100 Mechanical Ventilator 30 07/05/19 07:07 82 18 30 07/05/19 07:00 81 19 142/84 (103) 98 07/05/19 07:00 20 Mechanical Ventilator 30 07/05/19 06:45 89 20 156/94 (114) 100 07/05/19 06:30 81 19 146/87 (106) 99 07/05/19 06:15 84 19 151/84 (106) 97 07/05/19 06:00 88 20 152/93 (112) 96 07/05/19 06:00 20 Mechanical Ventilator 30 07/05/19 05:45 20 Mechanical Ventilator 30 07/05/19 05:45 92 21 146/97 (113) 97 07/05/19 05:30 141 30 165/110 (128) 100 07/05/19 05:08 85 21 30 07/05/19 05:00 85 23 140/81 (100) 100 07/05/19 05:00 20 Mechanical Ventilator 30 07/05/19 04:30 87 23 131/94 (106) 100 07/05/19 04:00 Mechanical Ventilator 07/05/19 04:00 99.1 87 25 157/89 (111) 100 07/05/19 04:00 30 07/05/19 04:00 20 Mechanical Ventilator 30 07/05/19 04:00 92 07/05/19 03:30 79 19 136/88 (104) 100 07/05/19 03:12 78 18 100 Mechanical Ventilator 30 07/05/19 03:00 76 18 128/83 (98) 100 07/05/19 03:00 20 Mechanical Ventilator 30 07/05/19 02:58 77 24 100 Mechanical Ventilator 30 07/05/19 02:56 76 20 30 07/05/19 02:30 78 19 130/82 (98) 100 07/05/19 02:08 98.2 07/05/19 02:00 77 19 124/79 (94) 100 07/05/19 02:00 30 07/05/19 02:00 20 Mechanical Ventilator 30 07/05/19 01:30 79 20 132/83 (99) 100 07/05/19 01:30 20 Mechanical Ventilator 30 07/05/19 01:15 78 19 40 07/05/19 01:00 20 Mechanical Ventilator 30 07/05/19 01:00 82 19 128/81 (97) 100 07/05/19 00:30 83 19 121/78 (92) 100 07/05/19 00:00 98.7 84 19 123/82 (96) 100 07/05/19 00:00 20 Mechanical Ventilator 30 07/05/19 00:00 Mechanical Ventilator 07/05/19 00:00 40 07/05/19 00:00 82 07/04/19 23:45 87 19 129/81 (97) 100 07/04/19 23:45 20 Mechanical Ventilator 30 07/04/19 23:30 20 Mechanical Ventilator 30 07/04/19 23:30 87 19 131/85 (100) 100 07/04/19 23:17 90 19 40 07/04/19 23:15 20 Mechanical Ventilator 30 07/04/19 23:15 96 20 137/86 (103) 100 07/04/19 23:00 20 Mechanical Ventilator 30 07/04/19 23:00 95 18 126/85 (99) 100 07/04/19 22:45 100 18 129/92 (104) 100 07/04/19 22:45 20 Mechanical Ventilator 30 07/04/19 22:30 101 18 123/82 (96) 100 07/04/19 22:30 20 Non-Rebreather 30 07/04/19 22:15 20 Mechanical Ventilator 30 07/04/19 22:15 97.8 07/04/19 22:15 104 19 128/88 (101) 100 07/04/19 22:00 106 20 146/96 (113) 100 07/04/19 22:00 20 Mechanical Ventilator 40 07/04/19 21:47 117 22 100 Mechanical Ventilator 40 07/04/19 21:45 20 Mechanical Ventilator 30 07/04/19 21:45 107 18 154/97 (116) 100 07/04/19 21:37 121 26 100 Mechanical Ventilator 40 07/04/19 21:30 126 23 157/99 (118) 93 07/04/19 21:30 20 Mechanical Ventilator 30 07/04/19 21:15 20 Mechanical Ventilator 30 07/04/19 21:15 115 31 169/95 (119) 100 07/04/19 21:00 20 Mechanical Ventilator 30 07/04/19 21:00 129 30 158/123 (135) 93 07/04/19 20:48 114 22 40 07/04/19 20:45 40 07/04/19 20:45 20 Mechanical Ventilator 30 07/04/19 20:15 128 29 163/111 (128) 98 07/04/19 20:00 98.6 109 30 145/117 (126) 99 07/04/19 20:00 Trach Collar 07/04/19 20:00 92 07/04/19 19:22 97 Cool Aerosol 8.0 30 07/04/19 19:00 116 163/85 (111) 96 07/04/19 18:32 180/95 07/04/19 18:00 97.8 64 25 170/90 (116) 100 07/04/19 17:16 100 Cool Aerosol 8.0 30 07/04/19 17:00 72 19 161/82 (108) 97 07/04/19 16:16 30 07/04/19 16:00 Trach Collar 07/04/19 16:00 75 07/04/19 16:00 30 07/04/19 16:00 67 21 160/80 (106) 99 07/04/19 15:47 160/92 07/04/19 15:00 63 19 160/92 (114) 100 07/04/19 14:37 63 20 30 07/04/19 14:00 109 26 189/90 (123) 88 07/04/19 13:02 84 23 30 07/04/19 13:00 66 23 172/94 (120) 100 07/04/19 12:16 167/91 07/04/19 12:00 30 07/04/19 12:00 59 07/04/19 12:00 Mechanical Ventilator 07/04/19 12:00 89.9 56 19 167/91 (116) 100 07/04/19 11:01 62 17 30 07/04/19 11:00 59 18 158/91 (113) 100 07/04/19 11:00 30 07/04/19 10:30 54 18 168/83 (111) 100 07/04/19 10:00 71 21 169/87 (114) 99 07/04/19 09:30 58 19 160/92 (114) 100 07/04/19 09:00 56 18 161/86 (111) 100 07/04/19 08:57 56 19 30 07/04/19 08:30 56 20 163/84 (110) 100 07/04/19 08:00 30 07/04/19 08:00 Mechanical Ventilator 07/04/19 08:00 97.8 57 18 163/89 (113) 100 07/04/19 08:00 58 07/04/19 07:26 60 19 144/98 (113) 100 07/04/19 07:19 69 20 177/129 (145) 98 07/04/19 07:00 56 21 175/91 (119) 100 07/04/19 06:54 64 24 30 07/04/19 06:30 64 20 166/91 (116) 100 07/04/19 06:00 63 18 162/87 (112) 100 07/04/19 05:30 60 18 162/88 (112) 100 07/04/19 05:05 65 18 30 07/04/19 05:05 65 18 100 Mechanical Ventilator 30 07/04/19 05:00 67 17 158/87 (110) 100 07/04/19 04:00 97.8 58 20 161/85 (110) 100 07/04/19 04:00 89 07/04/19 04:00 18 Mechanical Ventilator 30 07/04/19 04:00 Mechanical Ventilator 07/04/19 04:00 30 07/04/19 03:30 58 20 152/84 (106) 100 07/04/19 03:00 19 Mechanical Ventilator 30 07/04/19 03:00 53 18 147/93 (111) 100 07/04/19 02:47 55 18 30 07/04/19 02:30 55 19 147/79 (101) 100 07/04/19 02:00 60 18 153/81 (105) 100 07/04/19 02:00 18 Mechanical Ventilator 30 07/04/19 01:30 55 18 139/82 (101) 100 07/04/19 01:05 57 18 30 07/04/19 01:00 57 18 147/76 (99) 100 07/04/19 01:00 19 Mechanical Ventilator 30 07/04/19 00:59 19 Mechanical Ventilator 30 07/04/19 00:30 58 19 142/82 (102) 100 07/04/19 00:15 57 18 146/85 (105) 100 07/04/19 00:00 60 07/04/19 00:00 30 07/04/19 00:00 Mechanical Ventilator 07/04/19 00:00 20 Mechanical Ventilator 30 07/04/19 00:00 98.4 62 19 146/85 (105) 100 07/03/19 23:30 66 23 30 07/03/19 23:30 70 19 161/102 (121) 100 07/03/19 23:15 61 18 140/85 (103) 100 07/03/19 23:00 20 Mechanical Ventilator 30 07/03/19 23:00 60 19 144/85 (104) 100 07/03/19 22:30 62 18 149/80 (103) 100 07/03/19 22:00 20 Mechanical Ventilator 30 07/03/19 22:00 59 19 150/84 (106) 100 07/03/19 21:30 66 19 147/83 (104) 100 07/03/19 21:04 64 19 30 07/03/19 21:00 20 Mechanical Ventilator 30 07/03/19 21:00 63 19 138/78 (98) 100 07/03/19 20:30 70 20 141/76 (97) 100 07/03/19 20:00 Mechanical Ventilator 07/03/19 20:00 30 07/03/19 20:00 63 07/03/19 20:00 20 Mechanical Ventilator 30 07/03/19 20:00 98.8 60 20 127/71 (89) 100 07/03/19 19:30 59 19 137/77 (97) 100 07/03/19 19:12 60 19 30 07/03/19 19:00 57 19 139/81 (100) 100 07/03/19 19:00 20 Mechanical Ventilator 30 07/03/19 18:30 59 18 125/74 (91) 100 07/03/19 18:00 20 Mechanical Ventilator 07/03/19 18:00 60 19 127/75 (92) 100 07/03/19 17:30 70 18 130/75 (93) 100 07/03/19 17:17 22 Mechanical Ventilator 07/03/19 17:00 78 20 134/81 (98) 98 07/03/19 17:00 18 Mechanical Ventilator 07/03/19 16:30 100 22 30 07/03/19 16:30 91 20 144/79 (100) 98 07/03/19 16:00 137 07/03/19 16:00 Mechanical Ventilator 07/03/19 16:00 18 Mechanical Ventilator 07/03/19 16:00 98.2 132 25 166/86 (112) 99 07/03/19 16:00 30 07/03/19 15:30 62 24 144/75 (98) 100 07/03/19 15:23 172/92 Intake and Output 07/04/19 07/05/19 18:59 06:59 Intake Total 987 ml 1540 ml Output Total 440 ml 985 ml Balance 547 ml 555 ml Intake IV Total 987 ml 1540 ml Output Urine Total 440 ml 985 ml Labs Test 07/03/19 05:55 07/03/19 12:40 07/04/19 05:00 07/04/19 05:21 White Blood Count 19.4 K/UL (4.8-10.8) 15.4 K/UL (4.8-10.8) Red Blood Count 3.47 M/UL (4.20-5.40) 3.11 M/UL (4.20-5.40) Hemoglobin 10.9 G/DL (12.0-16.0) 9.7 G/DL (12.0-16.0) Hematocrit 32.3 % (37.0-47.0) 29.0 % (37.0-47.0) Mean Corpuscular Volume 93 FL (80-99) 93 FL (80-99) Mean Corpuscular Hemoglobin 31.5 PG (27.0-31.0) 31.0 PG (27.0-31.0) Mean Corpuscular Hemoglobin Concent 33.9 G/DL (32.0-36.0) 33.3 G/DL (32.0-36.0) Red Cell Distribution Width 15.2 % (11.6-14.8) 15.1 % (11.6-14.8) Platelet Count 91 K/UL (150-450) 110 K/UL (150-450) Mean Platelet Volume 11.6 FL (6.5-10.1) 10.2 FL (6.5-10.1) Neutrophils (%) (Auto) % (45.0-75.0) % (45.0-75.0) Lymphocytes (%) (Auto) % (20.0-45.0) % (20.0-45.0) Monocytes (%) (Auto) % (1.0-10.0) % (1.0-10.0) Eosinophils (%) (Auto) % (0.0-3.0) % (0.0-3.0) Basophils (%) (Auto) % (0.0-2.0) % (0.0-2.0) Differential Total Cells Counted 100 100 Neutrophils % (Manual) 92 % (45-75) 89 % (45-75) Lymphocytes % (Manual) 5 % (20-45) 3 % (20-45) Monocytes % (Manual) 3 % (1-10) 7 % (1-10) Eosinophils % (Manual) 0 % (0-3) 0 % (0-3) Basophils % (Manual) 0 % (0-2) 0 % (0-2) Band Neutrophils 0 % (0-8) 1 % (0-8) Platelet Estimate Decreased Decreased Platelet Morphology Normal Giant Platelets Rare Polychromasia 1+ Anisocytosis 1+ 1+ Sodium Level 142 MMOL/L (136-145) 140 MMOL/L (136-145) Potassium Level 3.4 MMOL/L (3.5-5.1) 3.2 MMOL/L (3.5-5.1) Chloride Level 111 MMOL/L (98-107) 111 MMOL/L (98-107) Carbon Dioxide Level 18 MMOL/L (21-32) 19 MMOL/L (21-32) Anion Gap 13 mmol/L (5-15) 10 mmol/L (5-15) Blood Urea Nitrogen 46 mg/dL (7-18) 40 mg/dL (7-18) Creatinine 3.3 MG/DL (0.55-1.30) 2.6 MG/DL (0.55-1.30) Estimat Glomerular Filtration Rate 17.2 mL/min (>60) 22.8 mL/min (>60) Glucose Level 185 MG/DL (74-106) 151 MG/DL (74-106) Calcium Level 8.0 MG/DL (8.5-10.1) 7.9 MG/DL (8.5-10.1) Venous Blood pH 7.334 7.33 Venous Blood Partial Pressure CO2 23.6 33.4 Venous Blood Partial Pressure O2 < 45.3 82.4 Venous Blood HCO3 12.3 17.5 Venous Blood Oxygen Saturation 77.6 95.4 Venous Blood Base Excess -12.4 -7.5 Nucleated Red Blood Cells 1 /100 WBC Erythrocyte Sedimentation Rate 30 MM/HR (0-30) Prothrombin Time 10.0 SEC (9.30-11.50) Prothromb Time International Ratio 0.9 (0.9-1.1) Activated Partial Thromboplast Time 23 SEC (23-33) Total Bilirubin 0.4 MG/DL (0.2-1.0) Aspartate Amino Transf (AST/SGOT) 130 U/L (15-37) Alanine Aminotransferase (ALT/SGPT) 316 U/L (12-78) Alkaline Phosphatase 63 U/L (46-116) C-Reactive Protein, Quantitative 0.8 mg/dL (0.00-0.90) Total Protein 6.3 G/DL (6.4-8.2) Albumin 2.8 G/DL (3.4-5.0) Globulin 3.5 g/dL Albumin/Globulin Ratio 0.8 (1.0-2.7) Amylase Level 83 U/L (25-115) Lipase 536 U/L (73-393) Venous Blood Total Carbon Dioxide 33.4 Venous Bld O2 Saturation (Measured) 30 Methemoglobin 0.7 Sodium (Blood Gas) Test 07/04/19 20:21 07/05/19 05:50 Arterial Blood pH 7.384 (7.350-7.450) Arterial Blood Partial Pressure CO2 26.4 mmHg (35.0-45.0) Arterial Blood Partial Pressure O2 79.3 mmHg (75.0-100.0) Arterial Blood HCO3 15.4 mmol/L (22.0-26.0) Arterial Blood Oxygen Saturation 94.8 % (95-100) Arterial Blood Base Excess -8.3 (-2-2) Maxim Test Positive White Blood Count 15.9 K/UL (4.8-10.8) Red Blood Count 3.14 M/UL (4.20-5.40) Hemoglobin 9.8 G/DL (12.0-16.0) Hematocrit 29.6 % (37.0-47.0) Mean Corpuscular Volume 94 FL (80-99) Mean Corpuscular Hemoglobin 31.3 PG (27.0-31.0) Mean Corpuscular Hemoglobin Concent 33.2 G/DL (32.0-36.0) Red Cell Distribution Width 15.5 % (11.6-14.8) Platelet Count 138 K/UL (150-450) Mean Platelet Volume 9.7 FL (6.5-10.1) Neutrophils (%) (Auto) 81.9 % (45.0-75.0) Lymphocytes (%) (Auto) 7.1 % (20.0-45.0) Monocytes (%) (Auto) 9.6 % (1.0-10.0) Eosinophils (%) (Auto) 0.3 % (0.0-3.0) Basophils (%) (Auto) 1.1 % (0.0-2.0) Sodium Level 144 MMOL/L (136-145) Potassium Level 3.2 MMOL/L (3.5-5.1) Chloride Level 113 MMOL/L (98-107) Carbon Dioxide Level 19 MMOL/L (21-32) Anion Gap 12 mmol/L (5-15) Blood Urea Nitrogen 35 mg/dL (7-18) Creatinine 2.3 MG/DL (0.55-1.30) Estimat Glomerular Filtration Rate 26.3 mL/min (>60) Glucose Level 106 MG/DL (74-106) Calcium Level 8.1 MG/DL (8.5-10.1) Total Bilirubin 0.6 MG/DL (0.2-1.0) Aspartate Amino Transf (AST/SGOT) 51 U/L (15-37) Alanine Aminotransferase (ALT/SGPT) 214 U/L (12-78) Alkaline Phosphatase 67 U/L (46-116) Total Creatine Kinase 176 U/L (26-308) Total Protein 6.2 G/DL (6.4-8.2) Albumin 2.7 G/DL (3.4-5.0) Globulin 3.5 g/dL Albumin/Globulin Ratio 0.8 (1.0-2.7) Lipase 751 U/L (73-393) Height (Feet): 5 Height (Inches): 4.00 Weight (Pounds): 170 Objective Physical Exam: Vitals: reviewed General Appearance: NAD HEENT: normocephalic, atraumatic ++ trach VENT Neck: non-tender, normal alignment Respiratory/Chest: normal breath sounds bilaterally Cardiovascular/Chest: normal peripheral pulses, normal rate Abdomen: normal bowel sounds, soft, nontender Extremities: normal range of motion Jordan Nguyen MD Jul 05, 2019 15:08
--- NOTE | 2019-07-05 16:48 | General Progress Note ---
Assessment/Plan Status: stable, progressing Assessment/Plan: Hemodialysis 07/02 and 07/03 and 07/04. CBC, CMP tomorrow. We will continue to monitor and evaluate need and time for hemodialysis. Subjective ROS Limited/Unobtainable: Yes Allergies: Coded Allergies: No Known Allergies (Unverified , 06/29/19) Subjective The patient is able to nod yes or no/ pt on a trach/vent ROS, limited by pt present condition Objective Last 24 Hour Vital Signs Date Time Temp Pulse Resp B/P (MAP) Pulse Ox O2 Delivery O2 Flow Rate FiO2 07/05/19 15:00 68 18 142/87 (105) 99 07/05/19 15:00 Mechanical Ventilator 07/05/19 14:58 68 18 100 Mechanical Ventilator 30 07/05/19 14:48 67 18 100 Mechanical Ventilator 30 07/05/19 14:46 67 18 30 07/05/19 14:30 70 18 146/90 (108) 100 07/05/19 14:00 71 18 151/102 (118) 100 07/05/19 14:00 Mechanical Ventilator 07/05/19 13:32 73 18 161/84 (109) 100 07/05/19 13:18 72 23 30 07/05/19 13:00 72 19 145/90 (108) 99 07/05/19 13:00 Mechanical Ventilator 07/05/19 12:30 72 19 142/95 (111) 99 07/05/19 12:09 Mechanical Ventilator 07/05/19 12:00 Mechanical Ventilator 07/05/19 12:00 30 07/05/19 12:00 98.8 74 18 123/78 (93) 99 07/05/19 11:30 78 19 128/75 (92) 99 07/05/19 11:00 83 19 134/79 (97) 100 07/05/19 11:00 Mechanical Ventilator 07/05/19 10:45 75 18 100 Mechanical Ventilator 30 07/05/19 10:38 68 18 100 Mechanical Ventilator 30 07/05/19 10:37 71 19 30 07/05/19 10:37 Mechanical Ventilator 07/05/19 10:30 73 18 129/88 (102) 99 07/05/19 10:00 71 19 130/80 (97) 99 07/05/19 09:38 Mechanical Ventilator 07/05/19 09:30 83 18 133/86 (102) 100 8/23/19 09:00 77 19 138/83 (101) 100 07/05/19 08:46 93 21 30 07/05/19 08:38 19 Mechanical Ventilator 30 07/05/19 08:30 74 19 148/86 (106) 99 07/05/19 08:00 30 07/05/19 08:00 84 07/05/19 08:00 Mechanical Ventilator 07/05/19 08:00 98.9 84 19 136/88 (104) 100 07/05/19 08:00 Mechanical Ventilator 07/05/19 07:30 84 18 141/81 (101) 99 07/05/19 07:15 89 23 100 Mechanical Ventilator 30 07/05/19 07:07 80 18 100 Mechanical Ventilator 30 07/05/19 07:07 82 18 30 07/05/19 07:00 81 19 142/84 (103) 98 07/05/19 07:00 20 Mechanical Ventilator 30 07/05/19 06:45 89 20 156/94 (114) 100 07/05/19 06:30 81 19 146/87 (106) 99 07/05/19 06:15 84 19 151/84 (106) 97 07/05/19 06:00 88 20 152/93 (112) 96 07/05/19 06:00 20 Mechanical Ventilator 30 07/05/19 05:45 20 Mechanical Ventilator 30 07/05/19 05:45 92 21 146/97 (113) 97 07/05/19 05:30 141 30 165/110 (128) 100 07/05/19 05:08 85 21 30 07/05/19 05:00 85 23 140/81 (100) 100 07/05/19 05:00 20 Mechanical Ventilator 30 07/05/19 04:30 87 23 131/94 (106) 100 07/05/19 04:00 Mechanical Ventilator 07/05/19 04:00 99.1 87 25 157/89 (111) 100 07/05/19 04:00 30 07/05/19 04:00 20 Mechanical Ventilator 30 07/05/19 04:00 92 07/05/19 03:30 79 19 136/88 (104) 100 07/05/19 03:12 78 18 100 Mechanical Ventilator 30 07/05/19 03:00 76 18 128/83 (98) 100 07/05/19 03:00 20 Mechanical Ventilator 30 07/05/19 02:58 77 24 100 Mechanical Ventilator 30 07/05/19 02:56 76 20 30 07/05/19 02:30 78 19 130/82 (98) 100 07/05/19 02:08 98.2 07/05/19 02:00 77 19 124/79 (94) 100 07/05/19 02:00 30 07/05/19 02:00 20 Mechanical Ventilator 30 07/05/19 01:30 79 20 132/83 (99) 100 07/05/19 01:30 20 Mechanical Ventilator 30 07/05/19 01:15 78 19 40 07/05/19 01:00 20 Mechanical Ventilator 30 07/05/19 01:00 82 19 128/81 (97) 100 07/05/19 00:30 83 19 121/78 (92) 100 07/05/19 00:00 98.7 84 19 123/82 (96) 100 07/05/19 00:00 20 Mechanical Ventilator 30 07/05/19 00:00 Mechanical Ventilator 07/05/19 00:00 40 07/05/19 00:00 82 07/04/19 23:45 87 19 129/81 (97) 100 07/04/19 23:45 20 Mechanical Ventilator 30 07/04/19 23:30 20 Mechanical Ventilator 30 07/04/19 23:30 87 19 131/85 (100) 100 07/04/19 23:17 90 19 40 07/04/19 23:15 20 Mechanical Ventilator 30 07/04/19 23:15 96 20 137/86 (103) 100 07/04/19 23:00 20 Mechanical Ventilator 30 07/04/19 23:00 95 18 126/85 (99) 100 07/04/19 22:45 100 18 129/92 (104) 100 07/04/19 22:45 20 Mechanical Ventilator 30 07/04/19 22:30 101 18 123/82 (96) 100 07/04/19 22:30 20 Non-Rebreather 30 07/04/19 22:15 20 Mechanical Ventilator 30 07/04/19 22:15 97.8 07/04/19 22:15 104 19 128/88 (101) 100 07/04/19 22:00 106 20 146/96 (113) 100 07/04/19 22:00 20 Mechanical Ventilator 40 07/04/19 21:47 117 22 100 Mechanical Ventilator 40 07/04/19 21:45 20 Mechanical Ventilator 30 07/04/19 21:45 107 18 154/97 (116) 100 07/04/19 21:37 121 26 100 Mechanical Ventilator 40 07/04/19 21:30 126 23 157/99 (118) 93 07/04/19 21:30 20 Mechanical Ventilator 30 07/04/19 21:15 20 Mechanical Ventilator 30 07/04/19 21:15 115 31 169/95 (119) 100 07/04/19 21:00 20 Mechanical Ventilator 30 07/04/19 21:00 129 30 158/123 (135) 93 07/04/19 20:48 114 22 40 07/04/19 20:45 40 07/04/19 20:45 20 Mechanical Ventilator 30 07/04/19 20:15 128 29 163/111 (128) 98 07/04/19 20:00 98.6 109 30 145/117 (126) 99 07/04/19 20:00 Trach Collar 07/04/19 20:00 92 07/04/19 19:22 97 Cool Aerosol 8.0 30 07/04/19 19:00 116 163/85 (111) 96 07/04/19 18:32 180/95 07/04/19 18:00 97.8 64 25 170/90 (116) 100 07/04/19 17:16 100 Cool Aerosol 8.0 30 07/04/19 17:00 72 19 161/82 (108) 97 Intake and Output 07/04/19 07/05/19 19:00 07:00 Intake Total 1112 ml 1450 ml Output Total 445 ml 1025 ml Balance 667 ml 425 ml Intake IV Total 1112 ml 1450 ml Output Urine Total 445 ml 1025 ml Laboratory Tests 07/04/19 20:21: Arterial Blood pH 7.384, Arterial Blood Partial Pressure CO2 26.4L, Arterial Blood Partial Pressure O2 79.3, Arterial Blood HCO3 15.4*L, Arterial Blood Oxygen Saturation 94.8L, Arterial Blood Base Excess -8.3L, Maxim Test Positive 07/05/19 05:50: White Blood Count 15.9H, Red Blood Count 3.14L, Hemoglobin 9.8L, Hematocrit 29.6L, Mean Corpuscular Volume 94, Mean Corpuscular Hemoglobin 31.3H, Mean Corpuscular Hemoglobin Concent 33.2, Red Cell Distribution Width 15.5H, Platelet Count 138L, Mean Platelet Volume 9.7, Neutrophils (%) (Auto) 81.9H, Lymphocytes (%) (Auto) 7.1L, Monocytes (%) (Auto) 9.6, Eosinophils (%) (Auto) 0.3, Basophils (%) (Auto) 1.1, Lymphocytes [Pending], Sodium Level 144, Potassium Level 3.2L, Chloride Level 113H, Carbon Dioxide Level 19L, Anion Gap 12, Blood Urea Nitrogen 35H, Creatinine 2.3H, Estimat Glomerular Filtration Rate 26.3, Glucose Level 106, Calcium Level 8.1L, Total Bilirubin 0.6, Aspartate Amino Transf (AST/SGOT) 51H, Alanine Aminotransferase (ALT/SGPT) 214H , Alkaline Phosphatase 67, Total Creatine Kinase 176, Total Protein 6.2L, Albumin 2.7L, Globulin 3.5, Albumin/Globulin Ratio 0.8L, Lipase 751H, Percent CD3 Cells [Pending], Absolute CD3 Count [Pending], Percent CD4 Cells [Pending], Absolute CD4 Count [Pending], T-Lymphocyte CD4/CD8 Ratio [Pending], Percent CD8 Cells [Pending], Absolute CD8 Count [Pending], HIV-1 RNA (PCR) log10 Value [ Pending], HIV-1 RNA Ultraquantitative (PCR) [Pending] Height (Feet): 5 Height (Inches): 4.00 Weight (Pounds): 170 General Appearance: WD/WN, no apparent distress EENT: PERRL/EOMI Neck: normal inspection Cardiovascular: normal peripheral pulses, normal rate, regular rhythm Respiratory/Chest: lungs clear, normal breath sounds, no respiratory distress Abdomen: normal bowel sounds, non tender Extremities: non-tender, normal inspection Edema: no edema noted Arm (L), no edema noted Arm (R), no edema noted Leg (L), no edema noted Leg (R) 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 Tracheostomy site appears healthy/no signs of infection. She has a patel draining yellow clear urine Sharee Alvarez N.P. Jul 05, 2019 16:47
--- NOTE | 2019-07-05 19:21 | Surgery Progress Note ---
Surgery Progress Note Subjective Additional Comments lots of secretions did not tolerate off vent back o for support Objective Last 24 Hour Vital Signs Date Time Temp Pulse Resp B/P (MAP) Pulse Ox O2 Delivery O2 Flow Rate FiO2 07/05/19 18:30 67 19 151/94 (113) 100 07/05/19 18:05 Mechanical Ventilator 07/05/19 18:00 70 20 148/91 (110) 100 07/05/19 17:30 72 18 153/93 (113) 100 07/05/19 17:02 23 Mechanical Ventilator 07/05/19 17:00 73 21 156/97 (116) 99 07/05/19 16:44 70 18 30 07/05/19 16:30 70 20 153/87 (109) 99 07/05/19 16:00 30 07/05/19 16:00 Mechanical Ventilator 07/05/19 16:00 98.9 71 18 149/96 (113) 98 07/05/19 16:00 19 Mechanical Ventilator 07/05/19 16:00 73 07/05/19 15:30 71 20 148/86 (106) 98 07/05/19 15:00 68 18 142/87 (105) 99 07/05/19 15:00 20 Mechanical Ventilator 07/05/19 14:58 68 18 100 Mechanical Ventilator 30 07/05/19 14:48 67 18 100 Mechanical Ventilator 30 07/05/19 14:46 67 18 30 07/05/19 14:30 70 18 146/90 (108) 100 07/05/19 14:00 71 18 151/102 (118) 100 07/05/19 14:00 19 Mechanical Ventilator 07/05/19 13:32 73 18 161/84 (109) 100 07/05/19 13:18 72 23 30 07/05/19 13:00 72 19 145/90 (108) 99 07/05/19 13:00 20 Mechanical Ventilator 07/05/19 12:30 72 19 142/95 (111) 99 07/05/19 12:09 19 Mechanical Ventilator 07/05/19 12:00 Mechanical Ventilator 07/05/19 12:00 30 07/05/19 12:00 75 07/05/19 12:00 98.8 74 18 123/78 (93) 99 07/05/19 11:30 78 19 128/75 (92) 99 07/05/19 11:00 83 19 134/79 (97) 100 07/05/19 11:00 19 Mechanical Ventilator 07/05/19 10:45 75 18 100 Mechanical Ventilator 30 07/05/19 10:38 68 18 100 Mechanical Ventilator 30 07/05/19 10:37 71 19 30 07/05/19 10:37 Mechanical Ventilator 07/05/19 10:30 73 18 129/88 (102) 99 07/05/19 10:00 71 19 130/80 (97) 99 07/05/19 10:00 18 Mechanical Ventilator 07/05/19 09:38 19 Mechanical Ventilator 07/05/19 09:30 83 18 133/86 (102) 100 07/05/19 09:00 77 19 138/83 (101) 100 07/05/19 09:00 19 Mechanical Ventilator 07/05/19 08:46 93 21 30 07/05/19 08:38 19 Mechanical Ventilator 30 07/05/19 08:30 74 19 148/86 (106) 99 07/05/19 08:00 30 07/05/19 08:00 84 07/05/19 08:00 Mechanical Ventilator 07/05/19 08:00 98.9 84 19 136/88 (104) 100 07/05/19 08:00 19 Mechanical Ventilator 07/05/19 07:30 84 18 141/81 (101) 99 07/05/19 07:15 89 23 100 Mechanical Ventilator 30 07/05/19 07:07 80 18 100 Mechanical Ventilator 30 07/05/19 07:07 82 18 30 07/05/19 07:00 81 19 142/84 (103) 98 07/05/19 07:00 20 Mechanical Ventilator 30 07/05/19 06:45 89 20 156/94 (114) 100 07/05/19 06:30 81 19 146/87 (106) 99 07/05/19 06:15 84 19 151/84 (106) 97 07/05/19 06:00 88 20 152/93 (112) 96 07/05/19 06:00 20 Mechanical Ventilator 30 07/05/19 05:45 20 Mechanical Ventilator 30 07/05/19 05:45 92 21 146/97 (113) 97 07/05/19 05:30 141 30 165/110 (128) 100 07/05/19 05:08 85 21 30 07/05/19 05:00 85 23 140/81 (100) 100 07/05/19 05:00 20 Mechanical Ventilator 30 07/05/19 04:30 87 23 131/94 (106) 100 07/05/19 04:00 Mechanical Ventilator 07/05/19 04:00 99.1 87 25 157/89 (111) 100 07/05/19 04:00 30 07/05/19 04:00 20 Mechanical Ventilator 30 07/05/19 04:00 92 07/05/19 03:30 79 19 136/88 (104) 100 07/05/19 03:12 78 18 100 Mechanical Ventilator 30 07/05/19 03:00 76 18 128/83 (98) 100 07/05/19 03:00 20 Mechanical Ventilator 30 07/05/19 02:58 77 24 100 Mechanical Ventilator 30 07/05/19 02:56 76 20 30 07/05/19 02:30 78 19 130/82 (98) 100 07/05/19 02:08 98.2 07/05/19 02:00 77 19 124/79 (94) 100 07/05/19 02:00 30 07/05/19 02:00 20 Mechanical Ventilator 30 07/05/19 01:30 79 20 132/83 (99) 100 07/05/19 01:30 20 Mechanical Ventilator 30 07/05/19 01:15 78 19 40 07/05/19 01:00 20 Mechanical Ventilator 30 07/05/19 01:00 82 19 128/81 (97) 100 07/05/19 00:30 83 19 121/78 (92) 100 07/05/19 00:00 98.7 84 19 123/82 (96) 100 07/05/19 00:00 20 Mechanical Ventilator 30 07/05/19 00:00 Mechanical Ventilator 07/05/19 00:00 40 07/05/19 00:00 82 07/04/19 23:45 87 19 129/81 (97) 100 07/04/19 23:45 20 Mechanical Ventilator 30 07/04/19 23:30 20 Mechanical Ventilator 30 07/04/19 23:30 87 19 131/85 (100) 100 07/04/19 23:17 90 19 40 07/04/19 23:15 20 Mechanical Ventilator 30 07/04/19 23:15 96 20 137/86 (103) 100 07/04/19 23:00 20 Mechanical Ventilator 30 07/04/19 23:00 95 18 126/85 (99) 100 07/04/19 22:45 100 18 129/92 (104) 100 07/04/19 22:45 20 Mechanical Ventilator 30 07/04/19 22:30 101 18 123/82 (96) 100 07/04/19 22:30 20 Non-Rebreather 30 07/04/19 22:15 20 Mechanical Ventilator 30 07/04/19 22:15 97.8 07/04/19 22:15 104 19 128/88 (101) 100 07/04/19 22:00 106 20 146/96 (113) 100 07/04/19 22:00 20 Mechanical Ventilator 40 07/04/19 21:47 117 22 100 Mechanical Ventilator 40 07/04/19 21:45 20 Mechanical Ventilator 30 07/04/19 21:45 107 18 154/97 (116) 100 07/04/19 21:37 121 26 100 Mechanical Ventilator 40 07/04/19 21:30 126 23 157/99 (118) 93 07/04/19 21:30 20 Mechanical Ventilator 30 07/04/19 21:15 20 Mechanical Ventilator 30 07/04/19 21:15 115 31 169/95 (119) 100 07/04/19 21:00 20 Mechanical Ventilator 30 07/04/19 21:00 129 30 158/123 (135) 93 07/04/19 20:48 114 22 40 07/04/19 20:45 40 07/04/19 20:45 20 Mechanical Ventilator 30 07/04/19 20:15 128 29 163/111 (128) 98 07/04/19 20:00 98.6 109 30 145/117 (126) 99 07/04/19 20:00 Trach Collar 07/04/19 20:00 92 07/04/19 19:22 97 Cool Aerosol 8.0 30 I&O Intake and Output 07/04/19 07/05/19 19:00 07:00 Intake Total 1112 ml 1450 ml Output Total 445 ml 1025 ml Balance 667 ml 425 ml Intake IV Total 1112 ml 1450 ml Output Urine Total 445 ml 1025 ml Dressing: dry Wound: clean Drains: other Cardiovascular: RSR Respiratory: decreased breath sounds Abdomen: soft, present bowel sounds Extremities: no edema, no tenderness Laboratory Tests Test 07/04/19 20:21 07/05/19 05:50 Arterial Blood pH 7.384 (7.350-7.450) Arterial Blood Partial Pressure CO2 26.4 mmHg (35.0-45.0) L Arterial Blood Partial Pressure O2 79.3 mmHg (75.0-100.0) Arterial Blood HCO3 15.4 mmol/L (22.0-26.0) *L Arterial Blood Oxygen Saturation 94.8 % (95-100) L Arterial Blood Base Excess -8.3 (-2-2) L Maxim Test Positive White Blood Count 15.9 K/UL (4.8-10.8) H Red Blood Count 3.14 M/UL (4.20-5.40) L Hemoglobin 9.8 G/DL (12.0-16.0) L Hematocrit 29.6 % (37.0-47.0) L Mean Corpuscular Volume 94 FL (80-99) Mean Corpuscular Hemoglobin 31.3 PG (27.0-31.0) H Mean Corpuscular Hemoglobin Concent 33.2 G/DL (32.0-36.0) Red Cell Distribution Width 15.5 % (11.6-14.8) H Platelet Count 138 K/UL (150-450) L Mean Platelet Volume 9.7 FL (6.5-10.1) Neutrophils (%) (Auto) 81.9 % (45.0-75.0) H Lymphocytes (%) (Auto) 7.1 % (20.0-45.0) L Monocytes (%) (Auto) 9.6 % (1.0-10.0) Eosinophils (%) (Auto) 0.3 % (0.0-3.0) Basophils (%) (Auto) 1.1 % (0.0-2.0) Lymphocytes Pending Sodium Level 144 MMOL/L (136-145) Potassium Level 3.2 MMOL/L (3.5-5.1) L Chloride Level 113 MMOL/L (98-107) H Carbon Dioxide Level 19 MMOL/L (21-32) L Anion Gap 12 mmol/L (5-15) Blood Urea Nitrogen 35 mg/dL (7-18) H Creatinine 2.3 MG/DL (0.55-1.30) H Estimat Glomerular Filtration Rate 26.3 mL/min (>60) Glucose Level 106 MG/DL (74-106) Calcium Level 8.1 MG/DL (8.5-10.1) L Total Bilirubin 0.6 MG/DL (0.2-1.0) Aspartate Amino Transf (AST/SGOT) 51 U/L (15-37) H Alanine Aminotransferase (ALT/SGPT) 214 U/L (12-78) H Alkaline Phosphatase 67 U/L (46-116) Total Creatine Kinase 176 U/L (26-308) Total Protein 6.2 G/DL (6.4-8.2) L Albumin 2.7 G/DL (3.4-5.0) L Globulin 3.5 g/dL Albumin/Globulin Ratio 0.8 (1.0-2.7) L Lipase 751 U/L (73-393) H Percent CD3 Cells Pending Absolute CD3 Count Pending Percent CD4 Cells Pending Absolute CD4 Count Pending T-Lymphocyte CD4/CD8 Ratio Pending Percent CD8 Cells Pending Absolute CD8 Count Pending HIV-1 RNA (PCR) log10 Value Pending HIV-1 RNA Ultraquantitative (PCR) Pending Plan Problems: (1) Angioedema Assessment & Plan: airway trach as per reports trach stable currently sutures in place dressings changed HD line in place and noted back o vent wean will follow with recs thank you (2) Tracheostomy hemorrhage Assessment & Plan: stable dressings dry will monitor cont off vent as tolerated (3) Tracheostomy complication George Cavazos Jul 05, 2019 19:20
[2019-07-05] MEDS: Dyna-Hex 2% Top Sol 2oz TOPIC SCH (20:00)
[2019-07-05] MEDS: Epoetin Alfa-EPBX(ESRD on dialysis)4000 units/ml vial SUBQ SCH (21:06)
--- NOTE | 2019-07-05 21:42 | Pulmonolgy Critical Care Note ---
Critical Care - Asmt/Plan Assessment/Plan: Pulmonary CCM Progress Note Patient is a 59-year-old female admitted with acute airway compromise complicating Angioedema, she has a history of hypertension. Presented with a severe allergic reaction. She woke up 2 hours prior to arrival with her tongue being swollen. S/p 4 unit transfusion on day of admission - post OR was hypotensive - had EBL 2000ml, pressors weaned Oliguric, Renal following, renal function improving, required HD Allergies: No Known Allergies Past Medical History: Hypertension All Other Systems: negative except mentioned in HPI Physical Exam Vital signs noted, on ACV via tracheostomy General Appearance: Mildly sedated, interactive Head: normocephalic, atraumatic Eyes: bilateral eye PERRL, bilateral eye EOMI ENT: Mosit mm. tracheostomy site, no active bleeding Neck: swollen, no LN Respiratory: chest non-tender, lungs clear, normal breath sounds Cardiovascular: Normal HS1, HS2, regular rate, rhythm, no murmur Gastrointestinal: normal bowel sounds, non tender, no mass, no organomegaly, no bruit, non-distended Musculoskeletal: back normal, gait/station normal, normal range of motion Neurological: No focal signs, moving all limbs, PERRL Impression: Angioedema s/p Emergent Tracheostomy Severe Hypotension associated with acute blood loss - EBL 2000ml ARF, HD requiring Previous Hypertension Cocaine use previously Plan HD per Renal Cardiology following Wean as tolerated ISS Monitor labs PRN sedation SCD Wean FIO2 PPX Continue current management EKG: tachycardiac: NSR, no acute ST changes Chest X-Ray: no consolidation, no effusion, no pneumothorax, no acute cardiopulmonary disease, tracheostomy position appropriate Critical Care - Objective Last 24 Hour Vital Signs Date Time Temp Pulse Resp B/P (MAP) Pulse Ox O2 Delivery O2 Flow Rate FiO2 07/05/19 19:22 87 18 100 Mechanical Ventilator 30 87 18 30 07/05/19 18:30 67 19 151/94 (113) 100 07/05/19 18:05 Mechanical Ventilator 07/05/19 18:00 70 20 148/91 (110) 100 07/05/19 17:30 72 18 153/93 (113) 100 07/05/19 17:02 23 Mechanical Ventilator 07/05/19 17:00 73 21 156/97 (116) 99 07/05/19 16:44 70 18 30 07/05/19 16:30 70 20 153/87 (109) 99 07/05/19 16:00 30 07/05/19 16:00 Mechanical Ventilator 07/05/19 16:00 98.9 71 18 149/96 (113) 98 07/05/19 16:00 19 Mechanical Ventilator 07/05/19 16:00 73 07/05/19 15:30 71 20 148/86 (106) 98 07/05/19 15:00 68 18 142/87 (105) 99 07/05/19 15:00 20 Mechanical Ventilator 07/05/19 14:58 68 18 100 Mechanical Ventilator 30 07/05/19 14:48 67 18 100 Mechanical Ventilator 30 07/05/19 14:46 67 18 30 07/05/19 14:30 70 18 146/90 (108) 100 07/05/19 14:00 71 18 151/102 (118) 100 07/05/19 14:00 19 Mechanical Ventilator 07/05/19 13:32 73 18 161/84 (109) 100 07/05/19 13:18 72 23 30 07/05/19 13:00 72 19 145/90 (108) 99 07/05/19 13:00 20 Mechanical Ventilator 07/05/19 12:30 72 19 142/95 (111) 99 07/05/19 12:09 19 Mechanical Ventilator 07/05/19 12:00 Mechanical Ventilator 07/05/19 12:00 30 07/05/19 12:00 75 07/05/19 12:00 98.8 74 18 123/78 (93) 99 07/05/19 11:30 78 19 128/75 (92) 99 07/05/19 11:00 83 19 134/79 (97) 100 07/05/19 11:00 19 Mechanical Ventilator 07/05/19 10:45 75 18 100 Mechanical Ventilator 30 07/05/19 10:38 68 18 100 Mechanical Ventilator 30 07/05/19 10:37 71 19 30 07/05/19 10:37 Mechanical Ventilator 07/05/19 10:30 73 18 129/88 (102) 99 07/05/19 10:00 71 19 130/80 (97) 99 07/05/19 10:00 18 Mechanical Ventilator 07/05/19 09:38 19 Mechanical Ventilator 07/05/19 09:30 83 18 133/86 (102) 100 07/05/19 09:00 77 19 138/83 (101) 100 07/05/19 09:00 19 Mechanical Ventilator 07/05/19 08:46 93 21 30 07/05/19 08:38 19 Mechanical Ventilator 30 07/05/19 08:30 74 19 148/86 (106) 99 07/05/19 08:00 30 07/05/19 08:00 84 07/05/19 08:00 Mechanical Ventilator 07/05/19 08:00 98.9 84 19 136/88 (104) 100 07/05/19 08:00 19 Mechanical Ventilator 07/05/19 07:30 84 18 141/81 (101) 99 07/05/19 07:15 89 23 100 Mechanical Ventilator 30 07/05/19 07:07 80 18 100 Mechanical Ventilator 30 07/05/19 07:07 82 18 30 07/05/19 07:00 81 19 142/84 (103) 98 07/05/19 07:00 20 Mechanical Ventilator 30 07/05/19 06:45 89 20 156/94 (114) 100 07/05/19 06:30 81 19 146/87 (106) 99 07/05/19 06:15 84 19 151/84 (106) 97 07/05/19 06:00 88 20 152/93 (112) 96 07/05/19 06:00 20 Mechanical Ventilator 30 07/05/19 05:45 20 Mechanical Ventilator 30 07/05/19 05:45 92 21 146/97 (113) 97 07/05/19 05:30 141 30 165/110 (128) 100 07/05/19 05:08 85 21 30 07/05/19 05:00 85 23 140/81 (100) 100 07/05/19 05:00 20 Mechanical Ventilator 30 07/05/19 04:30 87 23 131/94 (106) 100 07/05/19 04:00 Mechanical Ventilator 07/05/19 04:00 99.1 87 25 157/89 (111) 100 07/05/19 04:00 30 07/05/19 04:00 20 Mechanical Ventilator 30 07/05/19 04:00 92 07/05/19 03:30 79 19 136/88 (104) 100 07/05/19 03:12 78 18 100 Mechanical Ventilator 30 07/05/19 03:00 76 18 128/83 (98) 100 07/05/19 03:00 20 Mechanical Ventilator 30 07/05/19 02:58 77 24 100 Mechanical Ventilator 30 07/05/19 02:56 76 20 30 07/05/19 02:30 78 19 130/82 (98) 100 07/05/19 02:08 98.2 07/05/19 02:00 77 19 124/79 (94) 100 07/05/19 02:00 30 07/05/19 02:00 20 Mechanical Ventilator 30 07/05/19 01:30 79 20 132/83 (99) 100 07/05/19 01:30 20 Mechanical Ventilator 30 07/05/19 01:15 78 19 40 07/05/19 01:00 20 Mechanical Ventilator 30 07/05/19 01:00 82 19 128/81 (97) 100 07/05/19 00:30 83 19 121/78 (92) 100 07/05/19 00:00 98.7 84 19 123/82 (96) 100 07/05/19 00:00 20 Mechanical Ventilator 30 07/05/19 00:00 Mechanical Ventilator 07/05/19 00:00 40 07/05/19 00:00 82 07/04/19 23:45 87 19 129/81 (97) 100 07/04/19 23:45 20 Mechanical Ventilator 30 07/04/19 23:30 20 Mechanical Ventilator 30 07/04/19 23:30 87 19 131/85 (100) 100 07/04/19 23:17 90 19 40 07/04/19 23:15 20 Mechanical Ventilator 30 07/04/19 23:15 96 20 137/86 (103) 100 07/04/19 23:00 20 Mechanical Ventilator 30 07/04/19 23:00 95 18 126/85 (99) 100 07/04/19 22:45 100 18 129/92 (104) 100 07/04/19 22:45 20 Mechanical Ventilator 30 07/04/19 22:30 101 18 123/82 (96) 100 07/04/19 22:30 20 Non-Rebreather 30 07/04/19 22:15 20 Mechanical Ventilator 30 07/04/19 22:15 97.8 07/04/19 22:15 104 19 128/88 (101) 100 07/04/19 22:00 106 20 146/96 (113) 100 07/04/19 22:00 20 Mechanical Ventilator 40 07/04/19 21:47 117 22 100 Mechanical Ventilator 40 07/04/19 21:45 20 Mechanical Ventilator 30 07/04/19 21:45 107 18 154/97 (116) 100 Accucheck: 128 Critical Care - Subjective ROS Limited/Unobtainable: No FI02: 30 Vent Support Breath Rate: 18 Vent Support Mode: AC Vent Tidal Volume: 550 Sputum Amount: Moderate PEEP: 5.0 PIP: 21 I&O: Intake and Output 07/04/19 07/05/19 19:00 07:00 Intake Total 1112 ml 1450 ml Output Total 445 ml 1025 ml Balance 667 ml 425 ml Intake IV Total 1112 ml 1450 ml Output Urine Total 445 ml 1025 ml Deangelo John MD Jul 05, 2019 21:42
--- NOTE | 2019-07-05 23:36 | General Progress Note ---
Assessment/Plan Status: stable, progressing Assessment/Plan: Assessment - Angioedema, s/p emergency trach - abnormal LFT, ? Rhabdo related - improving - borderline CBD dilation on U/S - abnormal Lipase, ? significance - dysphagia, did not pass swallow - Thrombocytopenia - improved - HIV (+) - Drug abuse Recommendations - Will hold off on NGT/OGT per pt request - re-evaluate swallow function daily - Monitor platelets, LFT, CPK - will consider CT imaging of abd once out of ICU Subjective Allergies: Coded Allergies: No Known Allergies (Unverified , 06/29/19) Subjective more awake no new complaints declines NGT Objective Last 24 Hour Vital Signs Date Time Temp Pulse Resp B/P (MAP) Pulse Ox O2 Delivery O2 Flow Rate FiO2 07/05/19 23:00 76 19 152/92 (112) 100 07/05/19 22:30 69 20 146/90 (108) 100 07/05/19 22:00 80 19 156/92 (113) 100 07/05/19 21:30 66 20 135/94 (108) 100 07/05/19 21:00 77 18 123/76 (92) 100 07/05/19 20:30 67 18 144/78 (100) 100 07/05/19 20:00 98.9 71 19 144/78 (100) 100 07/05/19 20:00 30 07/05/19 20:00 Mechanical Ventilator 07/05/19 19:30 65 19 156/80 (105) 100 07/05/19 19:22 87 18 100 Mechanical Ventilator 30 87 18 30 07/05/19 19:00 67 19 153/84 (107) 100 07/05/19 18:30 67 19 151/94 (113) 100 07/05/19 18:05 Mechanical Ventilator 07/05/19 18:00 70 20 148/91 (110) 100 07/05/19 17:30 72 18 153/93 (113) 100 07/05/19 17:02 23 Mechanical Ventilator 07/05/19 17:00 73 21 156/97 (116) 99 07/05/19 16:44 70 18 30 07/05/19 16:30 70 20 153/87 (109) 99 07/05/19 16:00 30 07/05/19 16:00 Mechanical Ventilator 07/05/19 16:00 98.9 71 18 149/96 (113) 98 07/05/19 16:00 19 Mechanical Ventilator 07/05/19 16:00 73 07/05/19 15:30 71 20 148/86 (106) 98 07/05/19 15:00 68 18 142/87 (105) 99 07/05/19 15:00 20 Mechanical Ventilator 07/05/19 14:58 68 18 100 Mechanical Ventilator 30 07/05/19 14:48 67 18 100 Mechanical Ventilator 30 07/05/19 14:46 67 18 30 07/05/19 14:30 70 18 146/90 (108) 100 07/05/19 14:00 71 18 151/102 (118) 100 07/05/19 14:00 19 Mechanical Ventilator 07/05/19 13:32 73 18 161/84 (109) 100 07/05/19 13:18 72 23 30 07/05/19 13:00 72 19 145/90 (108) 99 07/05/19 13:00 20 Mechanical Ventilator 07/05/19 12:30 72 19 142/95 (111) 99 07/05/19 12:09 19 Mechanical Ventilator 07/05/19 12:00 Mechanical Ventilator 07/05/19 12:00 30 07/05/19 12:00 75 07/05/19 12:00 98.8 74 18 123/78 (93) 99 07/05/19 11:30 78 19 128/75 (92) 99 07/05/19 11:00 83 19 134/79 (97) 100 07/05/19 11:00 19 Mechanical Ventilator 07/05/19 10:45 75 18 100 Mechanical Ventilator 30 07/05/19 10:38 68 18 100 Mechanical Ventilator 30 07/05/19 10:37 71 19 30 07/05/19 10:37 Mechanical Ventilator 07/05/19 10:30 73 18 129/88 (102) 99 07/05/19 10:00 71 19 130/80 (97) 99 07/05/19 10:00 18 Mechanical Ventilator 07/05/19 09:38 19 Mechanical Ventilator 07/05/19 09:30 83 18 133/86 (102) 100 07/05/19 09:00 77 19 138/83 (101) 100 07/05/19 09:00 19 Mechanical Ventilator 07/05/19 08:46 93 21 30 07/05/19 08:38 19 Mechanical Ventilator 30 07/05/19 08:30 74 19 148/86 (106) 99 07/05/19 08:00 30 07/05/19 08:00 84 07/05/19 08:00 Mechanical Ventilator 07/05/19 08:00 98.9 84 19 136/88 (104) 100 07/05/19 08:00 19 Mechanical Ventilator 07/05/19 07:30 84 18 141/81 (101) 99 07/05/19 07:15 89 23 100 Mechanical Ventilator 30 07/05/19 07:07 80 18 100 Mechanical Ventilator 30 07/05/19 07:07 82 18 30 07/05/19 07:00 81 19 142/84 (103) 98 07/05/19 07:00 20 Mechanical Ventilator 30 07/05/19 06:45 89 20 156/94 (114) 100 07/05/19 06:30 81 19 146/87 (106) 99 07/05/19 06:15 84 19 151/84 (106) 97 07/05/19 06:00 88 20 152/93 (112) 96 07/05/19 06:00 20 Mechanical Ventilator 30 07/05/19 05:45 20 Mechanical Ventilator 30 07/05/19 05:45 92 21 146/97 (113) 97 07/05/19 05:30 141 30 165/110 (128) 100 07/05/19 05:08 85 21 30 07/05/19 05:00 85 23 140/81 (100) 100 07/05/19 05:00 20 Mechanical Ventilator 30 07/05/19 04:30 87 23 131/94 (106) 100 07/05/19 04:00 Mechanical Ventilator 07/05/19 04:00 99.1 87 25 157/89 (111) 100 07/05/19 04:00 30 07/05/19 04:00 20 Mechanical Ventilator 30 07/05/19 04:00 92 07/05/19 03:30 79 19 136/88 (104) 100 07/05/19 03:12 78 18 100 Mechanical Ventilator 30 07/05/19 03:00 76 18 128/83 (98) 100 07/05/19 03:00 20 Mechanical Ventilator 30 07/05/19 02:58 77 24 100 Mechanical Ventilator 30 07/05/19 02:56 76 20 30 07/05/19 02:30 78 19 130/82 (98) 100 07/05/19 02:08 98.2 07/05/19 02:00 77 19 124/79 (94) 100 07/05/19 02:00 30 07/05/19 02:00 20 Mechanical Ventilator 30 07/05/19 01:30 79 20 132/83 (99) 100 07/05/19 01:30 20 Mechanical Ventilator 30 07/05/19 01:15 78 19 40 07/05/19 01:00 20 Mechanical Ventilator 30 07/05/19 01:00 82 19 128/81 (97) 100 07/05/19 00:30 83 19 121/78 (92) 100 07/05/19 00:00 98.7 84 19 123/82 (96) 100 07/05/19 00:00 20 Mechanical Ventilator 30 07/05/19 00:00 Mechanical Ventilator 07/05/19 00:00 40 07/05/19 00:00 82 07/04/19 23:45 87 19 129/81 (97) 100 07/04/19 23:45 20 Mechanical Ventilator 30 Intake and Output 07/04/19 07/05/19 19:00 07:00 Intake Total 1112 ml 1450 ml Output Total 445 ml 1025 ml Balance 667 ml 425 ml Intake IV Total 1112 ml 1450 ml Output Urine Total 445 ml 1025 ml Laboratory Tests 07/05/19 05:50: White Blood Count 15.9H, Red Blood Count 3.14L, Hemoglobin 9.8L, Hematocrit 29.6L, Mean Corpuscular Volume 94, Mean Corpuscular Hemoglobin 31.3H, Mean Corpuscular Hemoglobin Concent 33.2, Red Cell Distribution Width 15.5H, Platelet Count 138L, Mean Platelet Volume 9.7, Neutrophils (%) (Auto) 81.9H, Lymphocytes (%) (Auto) 7.1L, Monocytes (%) (Auto) 9.6, Eosinophils (%) (Auto) 0.3, Basophils (%) (Auto) 1.1, Lymphocytes [Pending], Sodium Level 144, Potassium Level 3.2L, Chloride Level 113H, Carbon Dioxide Level 19L, Anion Gap 12, Blood Urea Nitrogen 35H, Creatinine 2.3H, Estimat Glomerular Filtration Rate 26.3, Glucose Level 106, Calcium Level 8.1L, Total Bilirubin 0.6, Aspartate Amino Transf (AST/SGOT) 51H, Alanine Aminotransferase (ALT/SGPT) 214H , Alkaline Phosphatase 67, Total Creatine Kinase 176, Total Protein 6.2L, Albumin 2.7L, Globulin 3.5, Albumin/Globulin Ratio 0.8L, Lipase 751H, Percent CD3 Cells [Pending], Absolute CD3 Count [Pending], Percent CD4 Cells [Pending], Absolute CD4 Count [Pending], T-Lymphocyte CD4/CD8 Ratio [Pending], Percent CD8 Cells [Pending], Absolute CD8 Count [Pending], HIV-1 RNA (PCR) log10 Value [ Pending], HIV-1 RNA Ultraquantitative (PCR) [Pending] Height (Feet): 5 Height (Inches): 4.00 Weight (Pounds): 170 Objective WDWN AA woman NCAT (+) trach Coarse BS RR abd soft no edema Elisabeth Sommers MD Jul 05, 2019 23:36
[2019-07-05] MEDS: LORazepam Inj 2mg/ml 1ml IV PRN (23:59)
[2019-07-06] VITALS (55 sets, daily range): BP systolic 89–148; BP diastolic 61–103
[2019-07-06] MEDS: fentaNYL Citrate 2,500 MCG in NS 200 ML IV SCH ×3 (00:14→13:56)
[2019-07-06] MEDS: D5 1/2NS 1,000 ML IV SCH ×2 (00:28→09:33)
[2019-07-06] MEDS: Albuterol/Ipratropium 3ml neb HHN SCH ×6 (03:47→23:20)
[2019-07-06] MEDS: NovoLOG Insulin Flexpen SUBQ SCH ×4 (06:09→21:10)
[2019-07-06 07:09] LABS: ALANINE AMINOTRANSFERASE 122 U/L (12-78); ALBUMIN/GLOBULIN RATIO 0.6 (1.0-2.7); ALKALINE PHOSPHATASE 49 U/L (46-116); ANION GAP 9 mmol/L (5-15); ASPARTATE AMINO TRANSFERASE 26 U/L (15-37); BASOPHILS % (AUTO) 1.5 % (0.0-2.0); BILIRUBIN,TOTAL 0.5 MG/DL (0.2-1.0); BLOOD UREA NITROGEN 25 mg/dL (7-18); CALCIUM 7.7 MG/DL (8.5-10.1); CARBON DIOXIDE 20 MMOL/L (21-32); CHLORIDE 112 MMOL/L (98-107); CREATININE 1.8 MG/DL (0.55-1.30); EOSINOPHILS % (AUTO) 0.8 % (0.0-3.0); HEMATOCRIT 25.4 % (37.0-47.0); HEMOGLOBIN 8.5 G/DL (12.0-16.0); LYMPHOCYTES % (AUTO) 7.4 % (20.0-45.0); MEAN CORPUSCULAR VOLUME 95 FL (80-99); MONOCYTES % (AUTO) 8.6 % (1.0-10.0); NEUTROPHILS % (AUTO) 81.6 % (45.0-75.0); PLATELET COUNT 131 K/UL (150-450); POTASSIUM 3.3 MMOL/L (3.5-5.1); RED BLOOD COUNT 2.68 M/UL (4.20-5.40); RED CELL DISTRIBUTION WIDTH 15.7 % (11.6-14.8); SODIUM 141 MMOL/L (136-145); WHITE BLOOD COUNT 14.6 K/UL (4.8-10.8)
[2019-07-06] MEDS: Thiamine HCl 100 MG in D5W 55 ML IVPB SCH (09:33)
[2019-07-06] MEDS: Solu-MEDROL 40mg Inj IVP SCH (09:33)
[2019-07-06] MEDS: LORazepam Inj 2mg/ml 1ml IV PRN ×2 (11:47→22:06)
--- NOTE | 2019-07-06 11:59 | Nephrology Progress Note ---
Assessment/Plan Problem List: (1) Rhabdomyolysis (2) JUANITA (acute kidney injury) (3) Angioedema (4) Hypertension (5) Tracheostomy complication Plan creatinine and ck lower, nonoliguric, no dialysis can remove dave Subjective Constitutional: Reports: weakness HEENT: Reports: no symptoms Genitourinary: Reports: no symptoms Neurologic/Psychiatric: Reports: no symptoms Objective Objective Last 24 Hour Vital Signs Date Time Temp Pulse Resp B/P (MAP) Pulse Ox O2 Delivery O2 Flow Rate FiO2 07/06/19 11:32 88 23 100 Mechanical Ventilator 30 90 19 30 07/06/19 10:26 100 07/06/19 10:00 92 23 109/68 (82) 100 07/06/19 09:30 99 27 121/83 (96) 100 07/06/19 09:01 103 23 30 30 07/06/19 09:00 96 21 116/70 (85) 100 07/06/19 09:00 Mechanical Ventilator 07/06/19 08:30 97 19 108/62 (77) 100 07/06/19 08:30 Mechanical Ventilator 07/06/19 08:00 100 19 107/67 (80) 100 07/06/19 08:00 30 07/06/19 08:00 Mechanical Ventilator 07/06/19 08:00 Mechanical Ventilator 07/06/19 08:00 94 07/06/19 07:30 90 14 131/80 (97) 100 07/06/19 07:22 91 20 100 Mechanical Ventilator 30 88 19 30 07/06/19 07:00 18 Mechanical Ventilator 30 07/06/19 07:00 88 18 113/66 (82) 07/06/19 06:45 85 19 104/63 (77) 07/06/19 06:30 91 20 102/64 (77) 07/06/19 06:15 89 20 100 07/06/19 06:00 18 Mechanical Ventilator 30 07/06/19 06:00 89 19 137/82 (100) 100 07/06/19 05:45 86 19 130/78 (95) 100 07/06/19 05:30 90 18 125/81 (96) 100 07/06/19 05:20 84 19 30 07/06/19 05:15 90 18 131/80 (97) 100 07/06/19 05:00 18 Mechanical Ventilator 30 07/06/19 05:00 91 18 122/80 (94) 100 07/06/19 04:45 94 18 128/76 (93) 100 07/06/19 04:30 100 18 124/85 (98) 100 07/06/19 04:15 95 19 143/84 (103) 100 07/06/19 04:00 30 07/06/19 04:00 99.1 90 19 142/85 (104) 100 07/06/19 04:00 68 07/06/19 04:00 24 Mechanical Ventilator 30 07/06/19 04:00 Mechanical Ventilator 07/06/19 03:45 82 19 142/85 (104) 100 07/06/19 03:30 77 18 126/78 (94) 100 07/06/19 03:22 88 18 100 Mechanical Ventilator 30 89 18 30 07/06/19 03:00 24 Mechanical Ventilator 30 07/06/19 03:00 77 18 126/78 (94) 100 07/06/19 02:30 76 18 127/79 (95) 100 07/06/19 02:00 77 18 129/87 (101) 100 07/06/19 02:00 24 Mechanical Ventilator 30 07/06/19 01:30 82 19 145/83 (103) 100 07/06/19 01:00 90 18 126/81 (96) 100 07/06/19 01:00 18 Mechanical Ventilator 30 07/06/19 00:52 98.9 07/06/19 00:39 85 18 30 07/06/19 00:30 98 18 136/83 (100) 100 07/06/19 00:14 18 Mechanical Ventilator 8.0 30 07/06/19 00:00 Mechanical Ventilator 07/06/19 00:00 68 07/06/19 00:00 18 Mechanical Ventilator 30 07/06/19 00:00 30 07/06/19 00:00 98.7 85 18 145/91 (109) 100 07/05/19 23:40 87 18 100 Mechanical Ventilator 30 69 20 30 07/05/19 23:30 69 19 143/81 (101) 100 07/05/19 23:00 76 19 152/92 (112) 100 07/05/19 23:00 18 Mechanical Ventilator 30 07/05/19 22:30 69 20 146/90 (108) 100 07/05/19 22:00 80 19 156/92 (113) 100 07/05/19 22:00 18 Mechanical Ventilator 30 07/05/19 21:30 66 20 135/94 (108) 100 07/05/19 21:10 91 19 30 07/05/19 21:00 18 Mechanical Ventilator 30 07/05/19 21:00 77 18 123/76 (92) 100 07/05/19 20:30 67 18 144/78 (100) 100 07/05/19 20:00 98.9 71 19 144/78 (100) 100 07/05/19 20:00 18 Mechanical Ventilator 30 07/05/19 20:00 30 07/05/19 20:00 65 07/05/19 20:00 Mechanical Ventilator 07/05/19 19:30 65 19 156/80 (105) 100 07/05/19 19:22 87 18 100 Mechanical Ventilator 30 87 18 30 07/05/19 19:22 87 18 100 Mechanical Ventilator 30 07/05/19 19:00 67 19 153/84 (107) 100 07/05/19 19:00 18 Mechanical Ventilator 30 07/05/19 18:30 67 19 151/94 (113) 100 07/05/19 18:05 Mechanical Ventilator 07/05/19 18:00 70 20 148/91 (110) 100 07/05/19 17:30 72 18 153/93 (113) 100 07/05/19 17:02 23 Mechanical Ventilator 07/05/19 17:00 73 21 156/97 (116) 99 07/05/19 16:44 70 18 30 07/05/19 16:30 70 20 153/87 (109) 99 07/05/19 16:00 30 07/05/19 16:00 Mechanical Ventilator 07/05/19 16:00 98.9 71 18 149/96 (113) 98 07/05/19 16:00 19 Mechanical Ventilator 07/05/19 16:00 73 07/05/19 15:30 71 20 148/86 (106) 98 07/05/19 15:00 68 18 142/87 (105) 99 07/05/19 15:00 20 Mechanical Ventilator 07/05/19 14:58 68 18 100 Mechanical Ventilator 30 07/05/19 14:48 67 18 100 Mechanical Ventilator 30 07/05/19 14:46 67 18 30 07/05/19 14:30 70 18 146/90 (108) 100 07/05/19 14:00 71 18 151/102 (118) 100 07/05/19 14:00 19 Mechanical Ventilator 07/05/19 13:32 73 18 161/84 (109) 100 07/05/19 13:18 72 23 30 07/05/19 13:00 72 19 145/90 (108) 99 07/05/19 13:00 20 Mechanical Ventilator 07/05/19 12:30 72 19 142/95 (111) 99 07/05/19 12:09 19 Mechanical Ventilator 07/05/19 12:00 Mechanical Ventilator 07/05/19 12:00 30 07/05/19 12:00 75 07/05/19 12:00 98.8 74 18 123/78 (93) 99 Intake and Output 07/05/19 07/06/19 19:00 07:00 Intake Total 1410 ml 352 ml Output Total 1000 ml 1090 ml Balance 410 ml -738 ml Intake IV Total 1410 ml 352 ml Output Urine Total 1000 ml 1090 ml Laboratory Tests 07/06/19 06:20: White Blood Count 14.6H, Red Blood Count 2.68L, Hemoglobin 8.5L, Hematocrit 25.4L, Mean Corpuscular Volume 95, Mean Corpuscular Hemoglobin 31.5H, Mean Corpuscular Hemoglobin Concent 33.3, Red Cell Distribution Width 15.7H, Platelet Count 131L, Mean Platelet Volume 8.4, Neutrophils (%) (Auto) 81.6H, Lymphocytes (%) (Auto) 7.4L, Monocytes (%) (Auto) 8.6, Eosinophils (%) (Auto) 0.8, Basophils (%) (Auto) 1.5, Sodium Level 141, Potassium Level 3.3L, Chloride Level 112H, Carbon Dioxide Level 20L, Anion Gap 9, Blood Urea Nitrogen 25H, Creatinine 1.8H, Estimat Glomerular Filtration Rate 34.8, Glucose Level 113H, Calcium Level 7.7L, Total Bilirubin 0.5, Aspartate Amino Transf (AST/SGOT) 26, Alanine Aminotransferase (ALT/SGPT) 122H, Alkaline Phosphatase 49, Total Protein 5.2L, Albumin 2.0L, Globulin 3.2, Albumin/Globulin Ratio 0.6L Height (Feet): 5 Height (Inches): 4.00 Weight (Pounds): 170 General Appearance: no apparent distress, alert, other - on vent EENT: normal ENT inspection Cardiovascular: regular rhythm Respiratory/Chest: lungs clear Abdomen: non tender, soft Extremities: trace edema Neurologic: spice fumigator II-XII grossly normal Henry Seymour MD Jul 06, 2019 11:59
--- NOTE | 2019-07-06 12:37 | Cardiac Electrophysiology PN ---
Assessment/Plan Assessment/Plan 1. Angioedema, s/p emergency tracheostomy on the Vent Weaning protocol in progress 2. S/P Hypotension, 3. Hypertension. On Clonidine patch weekly 4. Cocaine abuse 5. ARF. Last HD and no further . Left femoral Jeison to be removed today 6. Anemia partial blood loss during tracheostomy DW RN Subjective Subjective Intubated via tracheostomy in ICU. Off Pressors. In SR with no arrhythmias Objective Last 24 Hour Vital Signs Date Time Temp Pulse Resp B/P (MAP) Pulse Ox O2 Delivery O2 Flow Rate FiO2 07/06/19 11:32 88 23 100 Mechanical Ventilator 30 90 19 30 07/06/19 10:26 100 07/06/19 10:00 92 23 109/68 (82) 100 07/06/19 09:30 99 27 121/83 (96) 100 07/06/19 09:01 103 23 30 30 07/06/19 09:00 96 21 116/70 (85) 100 07/06/19 09:00 Mechanical Ventilator 07/06/19 08:30 97 19 108/62 (77) 100 07/06/19 08:30 Mechanical Ventilator 07/06/19 08:00 100 19 107/67 (80) 100 07/06/19 08:00 30 07/06/19 08:00 Mechanical Ventilator 07/06/19 08:00 Mechanical Ventilator 07/06/19 08:00 94 07/06/19 07:30 90 14 131/80 (97) 100 07/06/19 07:22 91 20 100 Mechanical Ventilator 30 88 19 30 07/06/19 07:00 18 Mechanical Ventilator 30 07/06/19 07:00 88 18 113/66 (82) 07/06/19 06:45 85 19 104/63 (77) 07/06/19 06:30 91 20 102/64 (77) 07/06/19 06:15 89 20 100 07/06/19 06:00 18 Mechanical Ventilator 30 07/06/19 06:00 89 19 137/82 (100) 100 07/06/19 05:45 86 19 130/78 (95) 100 07/06/19 05:30 90 18 125/81 (96) 100 07/06/19 05:20 84 19 30 07/06/19 05:15 90 18 131/80 (97) 100 07/06/19 05:00 18 Mechanical Ventilator 30 07/06/19 05:00 91 18 122/80 (94) 100 07/06/19 04:45 94 18 128/76 (93) 100 07/06/19 04:30 100 18 124/85 (98) 100 07/06/19 04:15 95 19 143/84 (103) 100 07/06/19 04:00 30 07/06/19 04:00 99.1 90 19 142/85 (104) 100 07/06/19 04:00 68 07/06/19 04:00 24 Mechanical Ventilator 30 07/06/19 04:00 Mechanical Ventilator 07/06/19 03:45 82 19 142/85 (104) 100 07/06/19 03:30 77 18 126/78 (94) 100 07/06/19 03:22 88 18 100 Mechanical Ventilator 30 89 18 30 07/06/19 03:00 24 Mechanical Ventilator 30 07/06/19 03:00 77 18 126/78 (94) 100 07/06/19 02:30 76 18 127/79 (95) 100 07/06/19 02:00 77 18 129/87 (101) 100 07/06/19 02:00 24 Mechanical Ventilator 30 07/06/19 01:30 82 19 145/83 (103) 100 07/06/19 01:00 90 18 126/81 (96) 100 07/06/19 01:00 18 Mechanical Ventilator 30 07/06/19 00:52 98.9 07/06/19 00:39 85 18 30 07/06/19 00:30 98 18 136/83 (100) 100 07/06/19 00:14 18 Mechanical Ventilator 8.0 30 07/06/19 00:00 Mechanical Ventilator 07/06/19 00:00 68 07/06/19 00:00 18 Mechanical Ventilator 30 07/06/19 00:00 30 07/06/19 00:00 98.7 85 18 145/91 (109) 100 07/05/19 23:40 87 18 100 Mechanical Ventilator 30 69 20 30 07/05/19 23:30 69 19 143/81 (101) 100 07/05/19 23:00 76 19 152/92 (112) 100 07/05/19 23:00 18 Mechanical Ventilator 30 07/05/19 22:30 69 20 146/90 (108) 100 07/05/19 22:00 80 19 156/92 (113) 100 07/05/19 22:00 18 Mechanical Ventilator 30 07/05/19 21:30 66 20 135/94 (108) 100 07/05/19 21:10 91 19 30 07/05/19 21:00 18 Mechanical Ventilator 30 07/05/19 21:00 77 18 123/76 (92) 100 07/05/19 20:30 67 18 144/78 (100) 100 07/05/19 20:00 98.9 71 19 144/78 (100) 100 07/05/19 20:00 18 Mechanical Ventilator 30 07/05/19 20:00 30 07/05/19 20:00 65 07/05/19 20:00 Mechanical Ventilator 07/05/19 19:30 65 19 156/80 (105) 100 07/05/19 19:22 87 18 100 Mechanical Ventilator 30 87 18 30 07/05/19 19:22 87 18 100 Mechanical Ventilator 30 07/05/19 19:00 67 19 153/84 (107) 100 07/05/19 19:00 18 Mechanical Ventilator 30 07/05/19 18:30 67 19 151/94 (113) 100 07/05/19 18:05 Mechanical Ventilator 07/05/19 18:00 70 20 148/91 (110) 100 07/05/19 17:30 72 18 153/93 (113) 100 07/05/19 17:02 23 Mechanical Ventilator 07/05/19 17:00 73 21 156/97 (116) 99 07/05/19 16:44 70 18 30 07/05/19 16:30 70 20 153/87 (109) 99 07/05/19 16:00 30 07/05/19 16:00 Mechanical Ventilator 07/05/19 16:00 98.9 71 18 149/96 (113) 98 07/05/19 16:00 19 Mechanical Ventilator 07/05/19 16:00 73 07/05/19 15:30 71 20 148/86 (106) 98 07/05/19 15:00 68 18 142/87 (105) 99 07/05/19 15:00 20 Mechanical Ventilator 07/05/19 14:58 68 18 100 Mechanical Ventilator 30 07/05/19 14:48 67 18 100 Mechanical Ventilator 30 07/05/19 14:46 67 18 30 07/05/19 14:30 70 18 146/90 (108) 100 07/05/19 14:00 71 18 151/102 (118) 100 07/05/19 14:00 19 Mechanical Ventilator 07/05/19 13:32 73 18 161/84 (109) 100 07/05/19 13:18 72 23 30 07/05/19 13:00 72 19 145/90 (108) 99 07/05/19 13:00 20 Mechanical Ventilator Intake and Output 07/05/19 07/06/19 18:59 06:59 Intake Total 1413 ml 364 ml Output Total 995 ml 1090 ml Balance 418 ml -726 ml Intake IV Total 1413 ml 364 ml Output Urine Total 995 ml 1090 ml Laboratory Tests Test 07/06/19 06:20 White Blood Count 14.6 K/UL (4.8-10.8) H Red Blood Count 2.68 M/UL (4.20-5.40) L Hemoglobin 8.5 G/DL (12.0-16.0) L Hematocrit 25.4 % (37.0-47.0) L Mean Corpuscular Volume 95 FL (80-99) Mean Corpuscular Hemoglobin 31.5 PG (27.0-31.0) H Mean Corpuscular Hemoglobin Concent 33.3 G/DL (32.0-36.0) Red Cell Distribution Width 15.7 % (11.6-14.8) H Platelet Count 131 K/UL (150-450) L Mean Platelet Volume 8.4 FL (6.5-10.1) Neutrophils (%) (Auto) 81.6 % (45.0-75.0) H Lymphocytes (%) (Auto) 7.4 % (20.0-45.0) L Monocytes (%) (Auto) 8.6 % (1.0-10.0) Eosinophils (%) (Auto) 0.8 % (0.0-3.0) Basophils (%) (Auto) 1.5 % (0.0-2.0) Sodium Level 141 MMOL/L (136-145) Potassium Level 3.3 MMOL/L (3.5-5.1) L Chloride Level 112 MMOL/L (98-107) H Carbon Dioxide Level 20 MMOL/L (21-32) L Anion Gap 9 mmol/L (5-15) Blood Urea Nitrogen 25 mg/dL (7-18) H Creatinine 1.8 MG/DL (0.55-1.30) H Estimat Glomerular Filtration Rate 34.8 mL/min (>60) Glucose Level 113 MG/DL (74-106) H Calcium Level 7.7 MG/DL (8.5-10.1) L Total Bilirubin 0.5 MG/DL (0.2-1.0) Aspartate Amino Transf (AST/SGOT) 26 U/L (15-37) Alanine Aminotransferase (ALT/SGPT) 122 U/L (12-78) H Alkaline Phosphatase 49 U/L (46-116) Total Protein 5.2 G/DL (6.4-8.2) L Albumin 2.0 G/DL (3.4-5.0) L Globulin 3.2 g/dL Albumin/Globulin Ratio 0.6 (1.0-2.7) L Objective HEENT: Tracheostomy in place LUNGS: Coarse rhonchi CVS: RRR ABDOMEN: Obese EXT: No edema. Left groin Jeison Catheter Giles Rodarte MD Jul 06, 2019 12:37
--- NOTE | 2019-07-06 12:41 | Surgery Progress Note ---
Surgery Progress Note Subjective Additional Comments no acute events still no tolerating weaning well trach site foul odor and cleaned Objective Last 24 Hour Vital Signs Date Time Temp Pulse Resp B/P (MAP) Pulse Ox O2 Delivery O2 Flow Rate FiO2 07/06/19 11:32 88 23 100 Mechanical Ventilator 30 90 19 30 07/06/19 10:26 100 07/06/19 10:00 92 23 109/68 (82) 100 07/06/19 09:30 99 27 121/83 (96) 100 07/06/19 09:01 103 23 30 30 07/06/19 09:00 96 21 116/70 (85) 100 07/06/19 09:00 Mechanical Ventilator 07/06/19 08:30 97 19 108/62 (77) 100 07/06/19 08:30 Mechanical Ventilator 07/06/19 08:00 100 19 107/67 (80) 100 07/06/19 08:00 30 07/06/19 08:00 Mechanical Ventilator 07/06/19 08:00 Mechanical Ventilator 07/06/19 08:00 94 07/06/19 07:30 90 14 131/80 (97) 100 07/06/19 07:22 91 20 100 Mechanical Ventilator 30 88 19 30 07/06/19 07:00 18 Mechanical Ventilator 30 07/06/19 07:00 88 18 113/66 (82) 07/06/19 06:45 85 19 104/63 (77) 07/06/19 06:30 91 20 102/64 (77) 07/06/19 06:15 89 20 100 07/06/19 06:00 18 Mechanical Ventilator 30 07/06/19 06:00 89 19 137/82 (100) 100 07/06/19 05:45 86 19 130/78 (95) 100 07/06/19 05:30 90 18 125/81 (96) 100 07/06/19 05:20 84 19 30 07/06/19 05:15 90 18 131/80 (97) 100 07/06/19 05:00 18 Mechanical Ventilator 30 07/06/19 05:00 91 18 122/80 (94) 100 07/06/19 04:45 94 18 128/76 (93) 100 07/06/19 04:30 100 18 124/85 (98) 100 07/06/19 04:15 95 19 143/84 (103) 100 07/06/19 04:00 30 07/06/19 04:00 99.1 90 19 142/85 (104) 100 07/06/19 04:00 68 07/06/19 04:00 24 Mechanical Ventilator 30 07/06/19 04:00 Mechanical Ventilator 07/06/19 03:45 82 19 142/85 (104) 100 07/06/19 03:30 77 18 126/78 (94) 100 07/06/19 03:22 88 18 100 Mechanical Ventilator 30 89 18 30 07/06/19 03:00 24 Mechanical Ventilator 30 07/06/19 03:00 77 18 126/78 (94) 100 07/06/19 02:30 76 18 127/79 (95) 100 07/06/19 02:00 77 18 129/87 (101) 100 07/06/19 02:00 24 Mechanical Ventilator 30 07/06/19 01:30 82 19 145/83 (103) 100 07/06/19 01:00 90 18 126/81 (96) 100 07/06/19 01:00 18 Mechanical Ventilator 30 07/06/19 00:52 98.9 07/06/19 00:39 85 18 30 07/06/19 00:30 98 18 136/83 (100) 100 07/06/19 00:14 18 Mechanical Ventilator 8.0 30 07/06/19 00:00 Mechanical Ventilator 07/06/19 00:00 68 07/06/19 00:00 18 Mechanical Ventilator 30 07/06/19 00:00 30 07/06/19 00:00 98.7 85 18 145/91 (109) 100 07/05/19 23:40 87 18 100 Mechanical Ventilator 30 69 20 30 07/05/19 23:30 69 19 143/81 (101) 100 07/05/19 23:00 76 19 152/92 (112) 100 07/05/19 23:00 18 Mechanical Ventilator 30 07/05/19 22:30 69 20 146/90 (108) 100 07/05/19 22:00 80 19 156/92 (113) 100 07/05/19 22:00 18 Mechanical Ventilator 30 07/05/19 21:30 66 20 135/94 (108) 100 07/05/19 21:10 91 19 30 07/05/19 21:00 18 Mechanical Ventilator 30 07/05/19 21:00 77 18 123/76 (92) 100 07/05/19 20:30 67 18 144/78 (100) 100 07/05/19 20:00 98.9 71 19 144/78 (100) 100 07/05/19 20:00 18 Mechanical Ventilator 30 07/05/19 20:00 30 07/05/19 20:00 65 07/05/19 20:00 Mechanical Ventilator 07/05/19 19:30 65 19 156/80 (105) 100 07/05/19 19:22 87 18 100 Mechanical Ventilator 30 87 18 30 07/05/19 19:22 87 18 100 Mechanical Ventilator 30 07/05/19 19:00 67 19 153/84 (107) 100 07/05/19 19:00 18 Mechanical Ventilator 30 07/05/19 18:30 67 19 151/94 (113) 100 07/05/19 18:05 Mechanical Ventilator 07/05/19 18:00 70 20 148/91 (110) 100 07/05/19 17:30 72 18 153/93 (113) 100 07/05/19 17:02 23 Mechanical Ventilator 07/05/19 17:00 73 21 156/97 (116) 99 07/05/19 16:44 70 18 30 07/05/19 16:30 70 20 153/87 (109) 99 07/05/19 16:00 30 07/05/19 16:00 Mechanical Ventilator 07/05/19 16:00 98.9 71 18 149/96 (113) 98 07/05/19 16:00 19 Mechanical Ventilator 07/05/19 16:00 73 07/05/19 15:30 71 20 148/86 (106) 98 07/05/19 15:00 68 18 142/87 (105) 99 07/05/19 15:00 20 Mechanical Ventilator 07/05/19 14:58 68 18 100 Mechanical Ventilator 30 07/05/19 14:48 67 18 100 Mechanical Ventilator 30 07/05/19 14:46 67 18 30 07/05/19 14:30 70 18 146/90 (108) 100 07/05/19 14:00 71 18 151/102 (118) 100 07/05/19 14:00 19 Mechanical Ventilator 07/05/19 13:32 73 18 161/84 (109) 100 07/05/19 13:18 72 23 30 07/05/19 13:00 72 19 145/90 (108) 99 07/05/19 13:00 20 Mechanical Ventilator I&O Intake and Output 07/05/19 07/06/19 18:59 06:59 Intake Total 1413 ml 364 ml Output Total 995 ml 1090 ml Balance 418 ml -726 ml Intake IV Total 1413 ml 364 ml Output Urine Total 995 ml 1090 ml Dressing: saturated Wound: other Drains: other Cardiovascular: RSR Respiratory: clear Abdomen: soft, present bowel sounds Extremities: no cyanosis Laboratory Tests Test 07/06/19 06:20 White Blood Count 14.6 K/UL (4.8-10.8) H Red Blood Count 2.68 M/UL (4.20-5.40) L Hemoglobin 8.5 G/DL (12.0-16.0) L Hematocrit 25.4 % (37.0-47.0) L Mean Corpuscular Volume 95 FL (80-99) Mean Corpuscular Hemoglobin 31.5 PG (27.0-31.0) H Mean Corpuscular Hemoglobin Concent 33.3 G/DL (32.0-36.0) Red Cell Distribution Width 15.7 % (11.6-14.8) H Platelet Count 131 K/UL (150-450) L Mean Platelet Volume 8.4 FL (6.5-10.1) Neutrophils (%) (Auto) 81.6 % (45.0-75.0) H Lymphocytes (%) (Auto) 7.4 % (20.0-45.0) L Monocytes (%) (Auto) 8.6 % (1.0-10.0) Eosinophils (%) (Auto) 0.8 % (0.0-3.0) Basophils (%) (Auto) 1.5 % (0.0-2.0) Sodium Level 141 MMOL/L (136-145) Potassium Level 3.3 MMOL/L (3.5-5.1) L Chloride Level 112 MMOL/L (98-107) H Carbon Dioxide Level 20 MMOL/L (21-32) L Anion Gap 9 mmol/L (5-15) Blood Urea Nitrogen 25 mg/dL (7-18) H Creatinine 1.8 MG/DL (0.55-1.30) H Estimat Glomerular Filtration Rate 34.8 mL/min (>60) Glucose Level 113 MG/DL (74-106) H Calcium Level 7.7 MG/DL (8.5-10.1) L Total Bilirubin 0.5 MG/DL (0.2-1.0) Aspartate Amino Transf (AST/SGOT) 26 U/L (15-37) Alanine Aminotransferase (ALT/SGPT) 122 U/L (12-78) H Alkaline Phosphatase 49 U/L (46-116) Total Protein 5.2 G/DL (6.4-8.2) L Albumin 2.0 G/DL (3.4-5.0) L Globulin 3.2 g/dL Albumin/Globulin Ratio 0.6 (1.0-2.7) L Plan Problems: (1) Angioedema Assessment & Plan: airway trach as per reports trach stable currently sutures in place dressings changed HD line in place and noted back o vent wean will follow with recs thank you (2) Tracheostomy hemorrhage Assessment & Plan: stable dressings dry will monitor cont off vent as tolerated (3) Tracheostomy complication George Cavazos Jul 06, 2019 12:41
[2019-07-06] MEDS: Vasopressin 100 UNITS in NS 95 ML IV SCH (13:13)
--- NOTE | 2019-07-06 13:37 | General Progress Note ---
Assessment/Plan Status: stable, progressing Assessment/Plan: Assessment - Angioedema, s/p emergency trach - abnormal LFT, ? Rhabdo related - improving - borderline CBD dilation on U/S - abnormal Lipase, ? 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 Still refused NGT this am Objective Last 24 Hour Vital Signs Date Time Temp Pulse Resp B/P (MAP) Pulse Ox O2 Delivery O2 Flow Rate FiO2 07/06/19 11:32 88 23 100 Mechanical Ventilator 30 90 19 30 07/06/19 10:26 100 07/06/19 10:00 92 23 109/68 (82) 100 07/06/19 09:30 99 27 121/83 (96) 100 07/06/19 09:01 103 23 30 30 07/06/19 09:00 96 21 116/70 (85) 100 07/06/19 09:00 Mechanical Ventilator 07/06/19 08:30 97 19 108/62 (77) 100 07/06/19 08:30 Mechanical Ventilator 07/06/19 08:00 100 19 107/67 (80) 100 07/06/19 08:00 30 07/06/19 08:00 Mechanical Ventilator 07/06/19 08:00 Mechanical Ventilator 07/06/19 08:00 94 07/06/19 07:30 90 14 131/80 (97) 100 07/06/19 07:22 91 20 100 Mechanical Ventilator 30 88 19 30 07/06/19 07:00 18 Mechanical Ventilator 30 07/06/19 07:00 88 18 113/66 (82) 07/06/19 06:45 85 19 104/63 (77) 07/06/19 06:30 91 20 102/64 (77) 07/06/19 06:15 89 20 100 07/06/19 06:00 18 Mechanical Ventilator 30 07/06/19 06:00 89 19 137/82 (100) 100 07/06/19 05:45 86 19 130/78 (95) 100 07/06/19 05:30 90 18 125/81 (96) 100 07/06/19 05:20 84 19 30 07/06/19 05:15 90 18 131/80 (97) 100 07/06/19 05:00 18 Mechanical Ventilator 30 07/06/19 05:00 91 18 122/80 (94) 100 07/06/19 04:45 94 18 128/76 (93) 100 07/06/19 04:30 100 18 124/85 (98) 100 07/06/19 04:15 95 19 143/84 (103) 100 07/06/19 04:00 30 07/06/19 04:00 99.1 90 19 142/85 (104) 100 07/06/19 04:00 68 07/06/19 04:00 24 Mechanical Ventilator 30 07/06/19 04:00 Mechanical Ventilator 07/06/19 03:45 82 19 142/85 (104) 100 07/06/19 03:30 77 18 126/78 (94) 100 07/06/19 03:22 88 18 100 Mechanical Ventilator 30 89 18 30 07/06/19 03:00 24 Mechanical Ventilator 30 07/06/19 03:00 77 18 126/78 (94) 100 07/06/19 02:30 76 18 127/79 (95) 100 07/06/19 02:00 77 18 129/87 (101) 100 07/06/19 02:00 24 Mechanical Ventilator 30 07/06/19 01:30 82 19 145/83 (103) 100 07/06/19 01:00 90 18 126/81 (96) 100 07/06/19 01:00 18 Mechanical Ventilator 30 07/06/19 00:52 98.9 07/06/19 00:39 85 18 30 07/06/19 00:30 98 18 136/83 (100) 100 07/06/19 00:14 18 Mechanical Ventilator 8.0 30 07/06/19 00:00 Mechanical Ventilator 07/06/19 00:00 68 07/06/19 00:00 18 Mechanical Ventilator 30 07/06/19 00:00 30 07/06/19 00:00 98.7 85 18 145/91 (109) 100 07/05/19 23:40 87 18 100 Mechanical Ventilator 30 69 20 30 07/05/19 23:30 69 19 143/81 (101) 100 07/05/19 23:00 76 19 152/92 (112) 100 07/05/19 23:00 18 Mechanical Ventilator 30 07/05/19 22:30 69 20 146/90 (108) 100 07/05/19 22:00 80 19 156/92 (113) 100 07/05/19 22:00 18 Mechanical Ventilator 30 07/05/19 21:30 66 20 135/94 (108) 100 07/05/19 21:10 91 19 30 07/05/19 21:00 18 Mechanical Ventilator 30 07/05/19 21:00 77 18 123/76 (92) 100 07/05/19 20:30 67 18 144/78 (100) 100 07/05/19 20:00 98.9 71 19 144/78 (100) 100 07/05/19 20:00 18 Mechanical Ventilator 30 07/05/19 20:00 30 07/05/19 20:00 65 07/05/19 20:00 Mechanical Ventilator 07/05/19 19:30 65 19 156/80 (105) 100 07/05/19 19:22 87 18 100 Mechanical Ventilator 30 87 18 30 07/05/19 19:22 87 18 100 Mechanical Ventilator 30 07/05/19 19:00 67 19 153/84 (107) 100 07/05/19 19:00 18 Mechanical Ventilator 30 07/05/19 18:30 67 19 151/94 (113) 100 07/05/19 18:05 Mechanical Ventilator 07/05/19 18:00 70 20 148/91 (110) 100 07/05/19 17:30 72 18 153/93 (113) 100 07/05/19 17:02 23 Mechanical Ventilator 07/05/19 17:00 73 21 156/97 (116) 99 07/05/19 16:44 70 18 30 07/05/19 16:30 70 20 153/87 (109) 99 07/05/19 16:00 30 07/05/19 16:00 Mechanical Ventilator 07/05/19 16:00 98.9 71 18 149/96 (113) 98 07/05/19 16:00 19 Mechanical Ventilator 07/05/19 16:00 73 07/05/19 15:30 71 20 148/86 (106) 98 07/05/19 15:00 68 18 142/87 (105) 99 07/05/19 15:00 20 Mechanical Ventilator 07/05/19 14:58 68 18 100 Mechanical Ventilator 30 07/05/19 14:48 67 18 100 Mechanical Ventilator 30 07/05/19 14:46 67 18 30 07/05/19 14:30 70 18 146/90 (108) 100 07/05/19 14:00 71 18 151/102 (118) 100 07/05/19 14:00 19 Mechanical Ventilator 07/05/19 13:32 73 18 161/84 (109) 100 Intake and Output 07/05/19 07/06/19 18:59 06:59 Intake Total 1413 ml 364 ml Output Total 995 ml 1090 ml Balance 418 ml -726 ml Intake IV Total 1413 ml 364 ml Output Urine Total 995 ml 1090 ml Laboratory Tests 07/06/19 06:20: White Blood Count 14.6H, Red Blood Count 2.68L, Hemoglobin 8.5L, Hematocrit 25.4L, Mean Corpuscular Volume 95, Mean Corpuscular Hemoglobin 31.5H, Mean Corpuscular Hemoglobin Concent 33.3, Red Cell Distribution Width 15.7H, Platelet Count 131L, Mean Platelet Volume 8.4, Neutrophils (%) (Auto) 81.6H, Lymphocytes (%) (Auto) 7.4L, Monocytes (%) (Auto) 8.6, Eosinophils (%) (Auto) 0.8, Basophils (%) (Auto) 1.5, Sodium Level 141, Potassium Level 3.3L, Chloride Level 112H, Carbon Dioxide Level 20L, Anion Gap 9, Blood Urea Nitrogen 25H, Creatinine 1.8H, Estimat Glomerular Filtration Rate 34.8, Glucose Level 113H, Calcium Level 7.7L, Total Bilirubin 0.5, Aspartate Amino Transf (AST/SGOT) 26, Alanine Aminotransferase (ALT/SGPT) 122H, Alkaline Phosphatase 49, Total Protein 5.2L, Albumin 2.0L, Globulin 3.2, Albumin/Globulin Ratio 0.6L Height (Feet): 5 Height (Inches): 4.00 Weight (Pounds): 170 Objective WDWN AA woman NCAT (+) trach Coarse BS RR abd soft no edema Elisabeth Sommers MD Jul 06, 2019 13:37
[2019-07-06] MEDS: D5 1/2NS w/KCl 30mEq 1000ml 1,000 ML IV SCH ×2 (13:56→23:45)
--- NOTE | 2019-07-06 14:18 | General Progress Note ---
Assessment/Plan Problem List: (1) Tracheostomy hemorrhage ICD Codes: J95.01 - Hemorrhage from tracheostomy stoma SNOMED: 44525063 (2) Tracheostomy complication ICD Codes: J95.00 - Unspecified tracheostomy complication SNOMED: 07084473 (3) Cocaine abuse ICD Codes: F14.10 - Cocaine abuse, uncomplicated SNOMED: 94439639 (4) Angioedema ICD Codes: T78.3XXA - Angioneurotic edema, initial encounter SNOMED: 10024748 Qualifiers: Qualified Codes: T78.3XXA - Angioneurotic edema, initial encounter (5) Hypertension ICD Codes: I10 - Essential (primary) hypertension SNOMED: 99811840 Qualifiers: Qualified Codes: I10 - Essential (primary) hypertension Status: stable, progressing Assessment/Plan: vent resp care monitor for bleeding, pain rx iv steroids per pulm dvt/stress ulcer prophylaxis anxiolytics replace k speech follow up ngt if pt agrees psych eval for agitation Subjective ROS Limited/Unobtainable: No Constitutional: Reports: malaise, weakness HEENT: Reports: no symptoms Cardiovascular: Reports: no symptoms Respiratory: Reports: cough, shortness of breath Gastrointestinal/Abdominal: Reports: no symptoms Genitourinary: Reports: no symptoms Neurologic/Psychiatric: Reports: anxiety Endocrine: Reports: no symptoms Hematologic/Lymphatic: Reports: anemia Allergies: Coded Allergies: No Known Allergies (Unverified , 06/29/19) All Systems: reviewed and negative except above Subjective remains on the vent. remains agitated. on fentanyl drip. no fever or chills. no sob. bleeding noted. uop good. renal fxn improving. Objective Last 24 Hour Vital Signs Date Time Temp Pulse Resp B/P (MAP) Pulse Ox O2 Delivery O2 Flow Rate FiO2 07/06/19 13:56 Mechanical Ventilator 07/06/19 13:26 82 18 30 07/06/19 13:22 Mechanical Ventilator 07/06/19 11:32 88 23 100 Mechanical Ventilator 30 90 19 30 07/06/19 10:26 100 07/06/19 10:00 92 23 109/68 (82) 100 07/06/19 09:30 99 27 121/83 (96) 100 07/06/19 09:01 103 23 30 30 07/06/19 09:00 96 21 116/70 (85) 100 07/06/19 09:00 Mechanical Ventilator 07/06/19 08:30 97 19 108/62 (77) 100 07/06/19 08:30 Mechanical Ventilator 07/06/19 08:00 100 19 107/67 (80) 100 07/06/19 08:00 30 07/06/19 08:00 Mechanical Ventilator 07/06/19 08:00 Mechanical Ventilator 07/06/19 08:00 94 07/06/19 07:30 90 14 131/80 (97) 100 07/06/19 07:22 91 20 100 Mechanical Ventilator 30 88 19 30 07/06/19 07:00 18 Mechanical Ventilator 30 07/06/19 07:00 88 18 113/66 (82) 07/06/19 06:45 85 19 104/63 (77) 07/06/19 06:30 91 20 102/64 (77) 07/06/19 06:15 89 20 100 07/06/19 06:00 18 Mechanical Ventilator 30 07/06/19 06:00 89 19 137/82 (100) 100 07/06/19 05:45 86 19 130/78 (95) 100 07/06/19 05:30 90 18 125/81 (96) 100 07/06/19 05:20 84 19 30 07/06/19 05:15 90 18 131/80 (97) 100 07/06/19 05:00 18 Mechanical Ventilator 30 07/06/19 05:00 91 18 122/80 (94) 100 07/06/19 04:45 94 18 128/76 (93) 100 07/06/19 04:30 100 18 124/85 (98) 100 07/06/19 04:15 95 19 143/84 (103) 100 07/06/19 04:00 30 07/06/19 04:00 99.1 90 19 142/85 (104) 100 07/06/19 04:00 68 07/06/19 04:00 24 Mechanical Ventilator 30 07/06/19 04:00 Mechanical Ventilator 07/06/19 03:45 82 19 142/85 (104) 100 07/06/19 03:30 77 18 126/78 (94) 100 07/06/19 03:22 88 18 100 Mechanical Ventilator 30 89 18 30 07/06/19 03:00 24 Mechanical Ventilator 30 07/06/19 03:00 77 18 126/78 (94) 100 07/06/19 02:30 76 18 127/79 (95) 100 07/06/19 02:00 77 18 129/87 (101) 100 07/06/19 02:00 24 Mechanical Ventilator 30 07/06/19 01:30 82 19 145/83 (103) 100 07/06/19 01:00 90 18 126/81 (96) 100 07/06/19 01:00 18 Mechanical Ventilator 30 07/06/19 00:52 98.9 07/06/19 00:39 85 18 30 07/06/19 00:30 98 18 136/83 (100) 100 07/06/19 00:14 18 Mechanical Ventilator 8.0 30 07/06/19 00:00 Mechanical Ventilator 07/06/19 00:00 68 07/06/19 00:00 18 Mechanical Ventilator 30 07/06/19 00:00 30 07/06/19 00:00 98.7 85 18 145/91 (109) 100 07/05/19 23:40 87 18 100 Mechanical Ventilator 30 69 20 30 07/05/19 23:30 69 19 143/81 (101) 100 07/05/19 23:00 76 19 152/92 (112) 100 07/05/19 23:00 18 Mechanical Ventilator 30 07/05/19 22:30 69 20 146/90 (108) 100 07/05/19 22:00 80 19 156/92 (113) 100 07/05/19 22:00 18 Mechanical Ventilator 30 07/05/19 21:30 66 20 135/94 (108) 100 07/05/19 21:10 91 19 30 07/05/19 21:00 18 Mechanical Ventilator 30 07/05/19 21:00 77 18 123/76 (92) 100 07/05/19 20:30 67 18 144/78 (100) 100 07/05/19 20:00 98.9 71 19 144/78 (100) 100 07/05/19 20:00 18 Mechanical Ventilator 30 07/05/19 20:00 30 07/05/19 20:00 65 07/05/19 20:00 Mechanical Ventilator 07/05/19 19:30 65 19 156/80 (105) 100 07/05/19 19:22 87 18 100 Mechanical Ventilator 30 87 18 30 07/05/19 19:22 87 18 100 Mechanical Ventilator 30 07/05/19 19:00 67 19 153/84 (107) 100 07/05/19 19:00 18 Mechanical Ventilator 30 07/05/19 18:30 67 19 151/94 (113) 100 07/05/19 18:05 Mechanical Ventilator 07/05/19 18:00 70 20 148/91 (110) 100 07/05/19 17:30 72 18 153/93 (113) 100 07/05/19 17:02 23 Mechanical Ventilator 07/05/19 17:00 73 21 156/97 (116) 99 07/05/19 16:44 70 18 30 07/05/19 16:30 70 20 153/87 (109) 99 07/05/19 16:00 30 07/05/19 16:00 Mechanical Ventilator 07/05/19 16:00 98.9 71 18 149/96 (113) 98 07/05/19 16:00 19 Mechanical Ventilator 07/05/19 16:00 73 07/05/19 15:30 71 20 148/86 (106) 98 07/05/19 15:00 68 18 142/87 (105) 99 07/05/19 15:00 20 Mechanical Ventilator 07/05/19 14:58 68 18 100 Mechanical Ventilator 30 07/05/19 14:48 67 18 100 Mechanical Ventilator 30 07/05/19 14:46 67 18 30 07/05/19 14:30 70 18 146/90 (108) 100 Intake and Output 07/05/19 07/06/19 18:59 06:59 Intake Total 1413 ml 364 ml Output Total 995 ml 1090 ml Balance 418 ml -726 ml Intake IV Total 1413 ml 364 ml Output Urine Total 995 ml 1090 ml Laboratory Tests 07/06/19 06:20: White Blood Count 14.6H, Red Blood Count 2.68L, Hemoglobin 8.5L, Hematocrit 25.4L, Mean Corpuscular Volume 95, Mean Corpuscular Hemoglobin 31.5H, Mean Corpuscular Hemoglobin Concent 33.3, Red Cell Distribution Width 15.7H, Platelet Count 131L, Mean Platelet Volume 8.4, Neutrophils (%) (Auto) 81.6H, Lymphocytes (%) (Auto) 7.4L, Monocytes (%) (Auto) 8.6, Eosinophils (%) (Auto) 0.8, Basophils (%) (Auto) 1.5, Sodium Level 141, Potassium Level 3.3L, Chloride Level 112H, Carbon Dioxide Level 20L, Anion Gap 9, Blood Urea Nitrogen 25H, Creatinine 1.8H, Estimat Glomerular Filtration Rate 34.8, Glucose Level 113H, Calcium Level 7.7L, Total Bilirubin 0.5, Aspartate Amino Transf (AST/SGOT) 26, Alanine Aminotransferase (ALT/SGPT) 122H, Alkaline Phosphatase 49, Total Protein 5.2L, Albumin 2.0L, Globulin 3.2, Albumin/Globulin Ratio 0.6L Height (Feet): 5 Height (Inches): 4.00 Weight (Pounds): 170 Objective General Appearance: WD/WN, alert Neck: supple, other - trach midline Cardiovascular: normal rate, regular rhythm Respiratory/Chest: chest wall non-tender, lungs clear, normal breath sounds, no respiratory distress Abdomen: normal bowel sounds, non tender, soft, no organomegaly Edema: no edema noted Arm (L), no edema noted Arm (R), no edema noted Leg (L), no edema noted Leg (R), no edema noted Pedal (L), no edema noted Pedal (R), no edema noted Generalized Danis Markham MD Jul 06, 2019 14:18
--- NOTE | 2019-07-06 14:24 | Pulmonolgy Critical Care Note ---
Critical Care - Asmt/Plan Assessment/Plan: Pulmonary CCM Progress Note Patient is a 59-year-old female admitted with acute airway compromise complicating Angioedema, she has a history of hypertension. Presented with a severe allergic reaction. She woke up 2 hours prior to arrival with her tongue being swollen. S/p 4 unit transfusion on day of admission - post OR was hypotensive - had EBL 2000ml, pressors weaned off, weaning to TC as tolerated Oliguric, Renal following, renal function improving, required HD Allergies: No Known Allergies Past Medical History: Hypertension All Other Systems: negative except mentioned in HPI Physical Exam Vital signs noted, on ACV via tracheostomy General Appearance: Mildly sedated, interactive Head: normocephalic, atraumatic Eyes: bilateral eye PERRL, bilateral eye EOMI ENT: Mosit mm. tracheostomy site, no active bleeding Neck: swollen, no LN Respiratory: chest non-tender, lungs clear, normal breath sounds Cardiovascular: Normal HS1, HS2, regular rate, rhythm, no murmur Gastrointestinal: normal bowel sounds, non tender, no mass, no organomegaly, no bruit, non-distended Musculoskeletal: back normal, gait/station normal, normal range of motion Neurological: No focal signs, moving all limbs, PERRL Impression: Angioedema s/p Emergent Tracheostomy Severe Hypotension associated with acute blood loss - EBL 2000ml ARF, HD requiring Previous Hypertension Cocaine use previously Plan HD per Renal Cardiology following Wean as tolerated ISS Monitor labs PRN sedation SCD Wean FIO2 PPX Continue current management EKG: tachycardiac: NSR, no acute ST changes Chest X-Ray: no consolidation, no effusion, no pneumothorax, no acute cardiopulmonary disease, tracheostomy position appropriate Critical Care - Objective Last 24 Hour Vital Signs Date Time Temp Pulse Resp B/P (MAP) Pulse Ox O2 Delivery O2 Flow Rate FiO2 07/06/19 13:56 Mechanical Ventilator 07/06/19 13:26 82 18 30 07/06/19 13:22 Mechanical Ventilator 07/06/19 11:32 88 23 100 Mechanical Ventilator 30 90 19 30 07/06/19 10:26 100 07/06/19 10:00 92 23 109/68 (82) 100 07/06/19 09:30 99 27 121/83 (96) 100 07/06/19 09:01 103 23 30 30 07/06/19 09:00 96 21 116/70 (85) 100 07/06/19 09:00 Mechanical Ventilator 07/06/19 08:30 97 19 108/62 (77) 100 07/06/19 08:30 Mechanical Ventilator 07/06/19 08:00 100 19 107/67 (80) 100 07/06/19 08:00 30 07/06/19 08:00 Mechanical Ventilator 07/06/19 08:00 Mechanical Ventilator 07/06/19 08:00 94 07/06/19 07:30 90 14 131/80 (97) 100 07/06/19 07:22 91 20 100 Mechanical Ventilator 30 88 19 30 07/06/19 07:00 18 Mechanical Ventilator 30 07/06/19 07:00 88 18 113/66 (82) 07/06/19 06:45 85 19 104/63 (77) 07/06/19 06:30 91 20 102/64 (77) 07/06/19 06:15 89 20 100 07/06/19 06:00 18 Mechanical Ventilator 30 07/06/19 06:00 89 19 137/82 (100) 100 07/06/19 05:45 86 19 130/78 (95) 100 07/06/19 05:30 90 18 125/81 (96) 100 07/06/19 05:20 84 19 30 07/06/19 05:15 90 18 131/80 (97) 100 07/06/19 05:00 18 Mechanical Ventilator 30 07/06/19 05:00 91 18 122/80 (94) 100 07/06/19 04:45 94 18 128/76 (93) 100 07/06/19 04:30 100 18 124/85 (98) 100 07/06/19 04:15 95 19 143/84 (103) 100 07/06/19 04:00 30 07/06/19 04:00 99.1 90 19 142/85 (104) 100 07/06/19 04:00 68 07/06/19 04:00 24 Mechanical Ventilator 30 07/06/19 04:00 Mechanical Ventilator 07/06/19 03:45 82 19 142/85 (104) 100 07/06/19 03:30 77 18 126/78 (94) 100 07/06/19 03:22 88 18 100 Mechanical Ventilator 30 89 18 30 07/06/19 03:00 24 Mechanical Ventilator 30 07/06/19 03:00 77 18 126/78 (94) 100 07/06/19 02:30 76 18 127/79 (95) 100 07/06/19 02:00 77 18 129/87 (101) 100 07/06/19 02:00 24 Mechanical Ventilator 30 07/06/19 01:30 82 19 145/83 (103) 100 07/06/19 01:00 90 18 126/81 (96) 100 07/06/19 01:00 18 Mechanical Ventilator 30 07/06/19 00:52 98.9 07/06/19 00:39 85 18 30 07/06/19 00:30 98 18 136/83 (100) 100 07/06/19 00:14 18 Mechanical Ventilator 8.0 30 07/06/19 00:00 Mechanical Ventilator 07/06/19 00:00 68 07/06/19 00:00 18 Mechanical Ventilator 30 07/06/19 00:00 30 07/06/19 00:00 98.7 85 18 145/91 (109) 100 07/05/19 23:40 87 18 100 Mechanical Ventilator 30 69 20 30 07/05/19 23:30 69 19 143/81 (101) 100 07/05/19 23:00 76 19 152/92 (112) 100 07/05/19 23:00 18 Mechanical Ventilator 30 07/05/19 22:30 69 20 146/90 (108) 100 07/05/19 22:00 80 19 156/92 (113) 100 07/05/19 22:00 18 Mechanical Ventilator 30 07/05/19 21:30 66 20 135/94 (108) 100 07/05/19 21:10 91 19 30 07/05/19 21:00 18 Mechanical Ventilator 30 07/05/19 21:00 77 18 123/76 (92) 100 07/05/19 20:30 67 18 144/78 (100) 100 07/05/19 20:00 98.9 71 19 144/78 (100) 100 07/05/19 20:00 18 Mechanical Ventilator 30 07/05/19 20:00 30 07/05/19 20:00 65 07/05/19 20:00 Mechanical Ventilator 07/05/19 19:30 65 19 156/80 (105) 100 07/05/19 19:22 87 18 100 Mechanical Ventilator 30 87 18 30 07/05/19 19:22 87 18 100 Mechanical Ventilator 30 07/05/19 19:00 67 19 153/84 (107) 100 07/05/19 19:00 18 Mechanical Ventilator 30 07/05/19 18:30 67 19 151/94 (113) 100 07/05/19 18:05 Mechanical Ventilator 07/05/19 18:00 70 20 148/91 (110) 100 07/05/19 17:30 72 18 153/93 (113) 100 07/05/19 17:02 23 Mechanical Ventilator 07/05/19 17:00 73 21 156/97 (116) 99 07/05/19 16:44 70 18 30 07/05/19 16:30 70 20 153/87 (109) 99 07/05/19 16:00 30 07/05/19 16:00 Mechanical Ventilator 07/05/19 16:00 98.9 71 18 149/96 (113) 98 07/05/19 16:00 19 Mechanical Ventilator 07/05/19 16:00 73 07/05/19 15:30 71 20 148/86 (106) 98 07/05/19 15:00 68 18 142/87 (105) 99 07/05/19 15:00 20 Mechanical Ventilator 07/05/19 14:58 68 18 100 Mechanical Ventilator 30 07/05/19 14:48 67 18 100 Mechanical Ventilator 30 07/05/19 14:46 67 18 30 07/05/19 14:30 70 18 146/90 (108) 100 Accucheck: 148 Critical Care - Subjective ROS Limited/Unobtainable: No FI02: 30 Vent Support Breath Rate: 18 Vent Support Mode: AC Vent Tidal Volume: 550 Sputum Amount: Small PEEP: 5.0 PIP: 17 I&O: Intake and Output 07/05/19 07/06/19 18:59 06:59 Intake Total 1413 ml 364 ml Output Total 995 ml 1090 ml Balance 418 ml -726 ml Intake IV Total 1413 ml 364 ml Output Urine Total 995 ml 1090 ml Deaneglo John MD Jul 06, 2019 14:24
[2019-07-06] MEDS: EPINEPHrine 1mg/1ml Amp 1 MG in D5W 249 ML IV SCH (15:43)
[2019-07-06] MEDS ORDERED: NS 275ml ONE ×4 (16:17→17:46)
[2019-07-06] MEDS ORDERED: D5 1/2NS 1000ml IV ONE ×4 (16:17→17:46)
[2019-07-06] MEDS ORDERED: Tubing IV Secondary IV ONE (16:18)
[2019-07-06] MEDS ORDERED: Sterile Water Irrig 1000ml IRRIG ONE (16:18)
[2019-07-06] MEDS: DiphenhydrAMINE 50mg/ml Inj IVP PRN (17:25)
[2019-07-06] MEDS: Dyna-Hex 2% Top Sol 2oz TOPIC SCH (19:53)
[2019-07-07] VITALS (61 sets, daily range): BP systolic 134–188; BP diastolic 71–117
[2019-07-07] MEDS: Albuterol/Ipratropium 3ml neb HHN SCH ×6 (03:10→23:16)
[2019-07-07] MEDS: NovoLOG Insulin Flexpen SUBQ SCH ×4 (06:05→21:00)
[2019-07-07 07:52] LABS: ANION GAP 11 mmol/L (5-15); BLOOD UREA NITROGEN 18 mg/dL (7-18); CALCIUM 8.1 MG/DL (8.5-10.1); CARBON DIOXIDE 18 MMOL/L (21-32); CHLORIDE 112 MMOL/L (98-107); CREATINE KINASE 93 U/L (26-308); CREATININE 1.5 MG/DL (0.55-1.30); PHOSPHORUS 3.7 MG/DL (2.5-4.9); POTASSIUM 3.9 MMOL/L (3.5-5.1); SODIUM 141 MMOL/L (136-145)
--- NOTE | 2019-07-07 07:55 | General Progress Note ---
Assessment/Plan Problem List: (1) Tracheostomy hemorrhage ICD Codes: J95.01 - Hemorrhage from tracheostomy stoma SNOMED: 55792804 (2) Tracheostomy complication ICD Codes: J95.00 - Unspecified tracheostomy complication SNOMED: 91781472 (3) Cocaine abuse ICD Codes: F14.10 - Cocaine abuse, uncomplicated SNOMED: 19605061 (4) Angioedema ICD Codes: T78.3XXA - Angioneurotic edema, initial encounter SNOMED: 63292368 Qualifiers: Qualified Codes: T78.3XXA - Angioneurotic edema, initial encounter (5) Hypertension ICD Codes: I10 - Essential (primary) hypertension SNOMED: 62072068 Qualifiers: Qualified Codes: I10 - Essential (primary) hypertension Status: stable, progressing Assessment/Plan: vent resp care monitor for bleeding, pain rx iv steroids per pulm dvt/stress ulcer prophylaxis anxiolytics replace k speech follow up Subjective ROS Limited/Unobtainable: No Constitutional: Reports: malaise, weakness HEENT: Reports: no symptoms Cardiovascular: Reports: no symptoms Respiratory: Reports: no symptoms Gastrointestinal/Abdominal: Reports: difficulty swallowing Genitourinary: Reports: no symptoms Neurologic/Psychiatric: Reports: anxiety Endocrine: Reports: no symptoms Hematologic/Lymphatic: Reports: no symptoms Allergies: Coded Allergies: No Known Allergies (Unverified , 06/29/19) All Systems: reviewed and negative except above Subjective no change. less agitation. still on fentanyl drip. refused ngt placement, Objective Last 24 Hour Vital Signs Date Time Temp Pulse Resp B/P (MAP) Pulse Ox O2 Delivery O2 Flow Rate FiO2 07/07/19 07:20 89 24 100 Mechanical Ventilator 30 07/07/19 07:15 96 24 30 07/07/19 07:00 98 24 147/95 (112) 98 07/07/19 06:30 101 23 151/91 (111) 100 07/07/19 06:00 18 Mechanical Ventilator 30 07/07/19 06:00 83 20 153/91 (111) 100 07/07/19 05:30 84 20 149/89 (109) 100 07/07/19 05:00 91 21 147/82 (103) 100 07/07/19 05:00 18 Mechanical Ventilator 30 07/07/19 04:45 93 19 138/71 (93) 100 07/07/19 04:41 89 22 30 8/25/19 04:30 94 20 147/92 (110) 100 07/07/19 04:15 90 19 147/90 (109) 100 07/07/19 04:00 30 07/07/19 04:00 Mechanical Ventilator 07/07/19 04:00 18 Mechanical Ventilator 30 07/07/19 04:00 95 07/07/19 04:00 98.5 92 29 152/87 (108) 100 07/07/19 03:30 93 20 162/97 (118) 100 07/07/19 03:11 98 22 100 30 100 20 30 07/07/19 03:00 98 22 155/99 (117) 100 07/07/19 03:00 18 Mechanical Ventilator 30 07/07/19 02:30 93 20 152/91 (111) 100 07/07/19 02:00 92 19 154/90 (111) 100 07/07/19 02:00 18 Non-Rebreather 30 07/07/19 01:30 108 23 176/117 (136) 100 07/07/19 01:10 106 19 30 07/07/19 01:00 18 Mechanical Ventilator 30 07/07/19 01:00 92 21 155/86 (109) 100 07/07/19 00:45 90 18 139/80 (99) 100 07/07/19 00:30 81 21 134/78 (96) 100 07/07/19 00:15 94 21 139/81 (100) 100 07/07/19 00:00 Mechanical Ventilator 07/07/19 00:00 75 07/07/19 00:00 98.7 89 20 140/80 (100) 100 07/07/19 00:00 18 Mechanical Ventilator 30 07/07/19 00:00 30 07/06/19 23:30 78 18 140/103 (115) 100 07/06/19 23:20 78 20 100 30 82 18 30 07/06/19 23:00 18 Mechanical Ventilator 30 07/06/19 23:00 80 21 137/80 (99) 100 07/06/19 22:30 85 23 135/83 (100) 100 07/06/19 22:00 18 Mechanical Ventilator 30 07/06/19 22:00 81 19 134/78 (96) 100 07/06/19 21:30 77 18 141/83 (102) 100 07/06/19 21:17 80 18 30 07/06/19 21:00 79 21 136/82 (100) 100 07/06/19 21:00 18 Mechanical Ventilator 30 07/06/19 20:30 81 20 136/84 (101) 100 07/06/19 20:00 Mechanical Ventilator 07/06/19 20:00 74 07/06/19 20:00 18 Mechanical Ventilator 30 07/06/19 20:00 98.3 78 19 133/76 (95) 100 07/06/19 20:00 30 07/06/19 19:30 67 18 143/80 (101) 100 07/06/19 19:30 65 18 100 30 68 18 30 07/06/19 19:00 18 Mechanical Ventilator 30 07/06/19 19:00 72 18 136/81 (99) 100 07/06/19 18:30 74 18 129/86 (100) 100 07/06/19 18:00 81 18 134/86 (102) 100 07/06/19 18:00 Mechanical Ventilator 07/06/19 17:30 86 18 147/90 (109) 100 07/06/19 17:00 86 18 30 07/06/19 17:00 91 19 148/87 (107) 100 07/06/19 17:00 Mechanical Ventilator 07/06/19 16:30 88 20 103/67 (79) 100 07/06/19 16:00 Mechanical Ventilator 07/06/19 16:00 98.9 90 21 100/67 (78) 100 07/06/19 16:00 Mechanical Ventilator 07/06/19 16:00 30 07/06/19 16:00 92 07/06/19 15:30 94 24 111/66 (81) 100 07/06/19 15:04 73 20 100 Mechanical Ventilator 30 82 21 30 07/06/19 15:00 70 20 105/73 (84) 100 07/06/19 15:00 Mechanical Ventilator 07/06/19 14:45 77 18 89/64 (72) 100 07/06/19 14:30 78 18 91/65 (74) 100 07/06/19 14:00 75 18 96/64 (75) 100 07/06/19 13:56 Mechanical Ventilator 07/06/19 13:30 79 18 106/62 (77) 100 8/24/19 13:26 82 18 30 07/06/19 13:22 Mechanical Ventilator 07/06/19 13:00 Mechanical Ventilator 07/06/19 13:00 83 18 89/62 (71) 100 07/06/19 12:30 92 18 89/63 (72) 100 07/06/19 12:00 84 07/06/19 12:00 Mechanical Ventilator 07/06/19 12:00 99.1 96 18 105/67 (80) 100 07/06/19 12:00 30 07/06/19 12:00 Mechanical Ventilator 07/06/19 11:32 88 23 100 Mechanical Ventilator 30 90 19 30 07/06/19 11:30 99 20 110/72 (85) 100 07/06/19 11:00 83 19 99/61 (74) 100 07/06/19 11:00 Mechanical Ventilator 07/06/19 10:30 90 19 112/68 (83) 100 07/06/19 10:30 Mechanical Ventilator 07/06/19 10:26 100 07/06/19 10:20 Mechanical Ventilator 07/06/19 10:15 Mechanical Ventilator 07/06/19 10:00 30 07/06/19 10:00 92 23 109/68 (82) 100 07/06/19 10:00 Mechanical Ventilator 07/06/19 09:50 Mechanical Ventilator 07/06/19 09:33 Mechanical Ventilator 07/06/19 09:30 99 27 121/83 (96) 100 07/06/19 09:01 103 23 30 30 07/06/19 09:00 96 21 116/70 (85) 100 07/06/19 09:00 Mechanical Ventilator 07/06/19 08:45 Mechanical Ventilator 07/06/19 08:30 97 19 108/62 (77) 100 07/06/19 08:30 Mechanical Ventilator 07/06/19 08:00 100.1 100 19 107/67 (80) 100 07/06/19 08:00 30 07/06/19 08:00 Mechanical Ventilator 07/06/19 08:00 Mechanical Ventilator 07/06/19 08:00 94 Intake and Output 07/06/19 07/07/19 19:00 07:00 Intake Total 791 ml 45 ml Output Total 880 ml 1000 ml Balance -89 ml -955 ml Intake IV Total 791 ml 45 ml Output Urine Total 880 ml 1000 ml Laboratory Tests 07/07/19 07:00: Sodium Level [Pending], Potassium Level [Pending], Chloride Level [Pending], Carbon Dioxide Level [Pending], Blood Urea Nitrogen [Pending], Creatinine [ Pending], Estimat Glomerular Filtration Rate [Pending], Glucose Level [Pending] , Calcium Level [Pending], Phosphorus Level [Pending], Magnesium Level [Pending] , Total Creatine Kinase [Pending] Height (Feet): 5 Height (Inches): 4.00 Weight (Pounds): 170 Objective General Appearance: WD/WN, alert Neck: supple, other - trach midline Cardiovascular: normal rate, regular rhythm Respiratory/Chest: chest wall non-tender, lungs clear, normal breath sounds, no respiratory distress Abdomen: normal bowel sounds, non tender, soft, no organomegaly Edema: no edema noted Arm (L), no edema noted Arm (R), no edema noted Leg (L), no edema noted Leg (R), no edema noted Pedal (L), no edema noted Pedal (R), no edema noted Generalized Danis Markham MD Jul 07, 2019 07:55
[2019-07-07 09:28] LABS: BASOPHILS % (AUTO) 0.8 % (0.0-2.0); EOSINOPHILS % (AUTO) 0.7 % (0.0-3.0); HEMATOCRIT 26.3 % (37.0-47.0); HEMOGLOBIN 8.6 G/DL (12.0-16.0); LYMPHOCYTES % (AUTO) 7.7 % (20.0-45.0); MEAN CORPUSCULAR VOLUME 95 FL (80-99); MONOCYTES % (AUTO) 9.9 % (1.0-10.0); NEUTROPHILS % (AUTO) 80.9 % (45.0-75.0); PLATELET COUNT 184 K/UL (150-450); RED BLOOD COUNT 2.78 M/UL (4.20-5.40); RED CELL DISTRIBUTION WIDTH 15.1 % (11.6-14.8); WHITE BLOOD COUNT 15.3 K/UL (4.8-10.8)
[2019-07-07] MEDS: Solu-MEDROL 40mg Inj IVP SCH (09:51)
[2019-07-07] MEDS: D5 1/2NS w/KCl 30mEq 1000ml 1,000 ML IV SCH ×3 (09:52→23:26)
[2019-07-07] MEDS: Thiamine HCl 100 MG in D5W 55 ML IVPB SCH (09:52)
[2019-07-07] MEDS: LORazepam Inj 2mg/ml 1ml IV PRN (10:27)
--- NOTE | 2019-07-07 10:56 | Infectious Diseases Prog Note ---
Assessment/Plan Assessment/Plan A 1. leucocytosis 2. angioedema 3. respiratory failure s/p emergent tracheostomy 4. HIV, AIDS 5. renal failure improving P 1. repeat CXR 2. Start on PCP Prophylaxis with Mepron 3. Start on Cefepime Subjective ROS Limited/Unobtainable: Yes Respiratory: Reports: other - didn't tolerate weaning Neurologic: Reports: other - on restraint Allergies: Coded Allergies: No Known Allergies (Unverified , 06/29/19) Objective Vital Signs Last 24 Hour Vital Signs Date Time Temp Pulse Resp B/P (MAP) Pulse Ox O2 Delivery O2 Flow Rate FiO2 07/07/19 09:20 99 07/07/19 08:54 85 27 30 07/07/19 07:20 89 24 100 Mechanical Ventilator 30 07/07/19 07:15 96 24 30 07/07/19 07:00 98 24 147/95 (112) 98 07/07/19 06:30 101 23 151/91 (111) 100 07/07/19 06:00 18 Mechanical Ventilator 30 07/07/19 06:00 83 20 153/91 (111) 100 07/07/19 05:30 84 20 149/89 (109) 100 07/07/19 05:00 91 21 147/82 (103) 100 07/07/19 05:00 18 Mechanical Ventilator 30 07/07/19 04:45 93 19 138/71 (93) 100 07/07/19 04:41 89 22 30 07/07/19 04:30 94 20 147/92 (110) 100 07/07/19 04:15 90 19 147/90 (109) 100 07/07/19 04:00 30 07/07/19 04:00 Mechanical Ventilator 07/07/19 04:00 18 Mechanical Ventilator 30 07/07/19 04:00 95 07/07/19 04:00 98.5 92 29 152/87 (108) 100 07/07/19 03:30 93 20 162/97 (118) 100 07/07/19 03:11 98 22 100 30 100 20 30 07/07/19 03:00 98 22 155/99 (117) 100 07/07/19 03:00 18 Mechanical Ventilator 30 07/07/19 02:30 93 20 152/91 (111) 100 07/07/19 02:00 92 19 154/90 (111) 100 07/07/19 02:00 18 Non-Rebreather 30 07/07/19 01:30 108 23 176/117 (136) 100 07/07/19 01:10 106 19 30 07/07/19 01:00 18 Mechanical Ventilator 30 07/07/19 01:00 92 21 155/86 (109) 100 07/07/19 00:45 90 18 139/80 (99) 100 07/07/19 00:30 81 21 134/78 (96) 100 07/07/19 00:15 94 21 139/81 (100) 100 07/07/19 00:00 Mechanical Ventilator 07/07/19 00:00 75 07/07/19 00:00 98.7 89 20 140/80 (100) 100 07/07/19 00:00 18 Mechanical Ventilator 30 07/07/19 00:00 30 07/06/19 23:30 78 18 140/103 (115) 100 07/06/19 23:20 78 20 100 30 82 18 30 07/06/19 23:00 18 Mechanical Ventilator 30 07/06/19 23:00 80 21 137/80 (99) 100 07/06/19 22:30 85 23 135/83 (100) 100 07/06/19 22:00 18 Mechanical Ventilator 30 07/06/19 22:00 81 19 134/78 (96) 100 07/06/19 21:30 77 18 141/83 (102) 100 07/06/19 21:17 80 18 30 07/06/19 21:00 79 21 136/82 (100) 100 07/06/19 21:00 18 Mechanical Ventilator 30 07/06/19 20:30 81 20 136/84 (101) 100 07/06/19 20:00 Mechanical Ventilator 07/06/19 20:00 74 07/06/19 20:00 18 Mechanical Ventilator 30 07/06/19 20:00 98.3 78 19 133/76 (95) 100 07/06/19 20:00 30 07/06/19 19:30 67 18 143/80 (101) 100 07/06/19 19:30 65 18 100 30 68 18 30 07/06/19 19:00 18 Mechanical Ventilator 30 07/06/19 19:00 72 18 136/81 (99) 100 07/06/19 18:30 74 18 129/86 (100) 100 07/06/19 18:00 81 18 134/86 (102) 100 07/06/19 18:00 Mechanical Ventilator 07/06/19 17:30 86 18 147/90 (109) 100 07/06/19 17:00 86 18 30 07/06/19 17:00 91 19 148/87 (107) 100 07/06/19 17:00 Mechanical Ventilator 07/06/19 16:30 88 20 103/67 (79) 100 07/06/19 16:00 Mechanical Ventilator 07/06/19 16:00 98.9 90 21 100/67 (78) 100 07/06/19 16:00 Mechanical Ventilator 07/06/19 16:00 30 07/06/19 16:00 92 07/06/19 15:30 94 24 111/66 (81) 100 07/06/19 15:04 73 20 100 Mechanical Ventilator 30 82 21 30 07/06/19 15:00 70 20 105/73 (84) 100 07/06/19 15:00 Mechanical Ventilator 07/06/19 14:45 77 18 89/64 (72) 100 07/06/19 14:30 78 18 91/65 (74) 100 07/06/19 14:00 75 18 96/64 (75) 100 07/06/19 13:56 Mechanical Ventilator 07/06/19 13:30 79 18 106/62 (77) 100 07/06/19 13:26 82 18 30 07/06/19 13:22 Mechanical Ventilator 07/06/19 13:00 Mechanical Ventilator 07/06/19 13:00 83 18 89/62 (71) 100 07/06/19 12:30 92 18 89/63 (72) 100 07/06/19 12:00 84 07/06/19 12:00 Mechanical Ventilator 07/06/19 12:00 99.1 96 18 105/67 (80) 100 07/06/19 12:00 30 07/06/19 12:00 Mechanical Ventilator 07/06/19 11:32 88 23 100 Mechanical Ventilator 30 90 19 30 07/06/19 11:30 99 20 110/72 (85) 100 07/06/19 11:00 83 19 99/61 (74) 100 07/06/19 11:00 Mechanical Ventilator Height (Feet): 5 Height (Inches): 4.00 Weight (Pounds): 170 HEENT: other - s/o tracheostomy Respiratory/Chest: lungs clear, other - on ventilator, secretion in ET Cardiovascular: normal rate Abdomen: soft, non tender, other - NG tube feeding Extremities: other - edema of left arm Neurologic/Psychiatric: alert, responsive Laboratory Tests Test 07/07/19 07:00 07/07/19 09:14 Sodium Level 141 MMOL/L (136-145) Potassium Level 3.9 MMOL/L (3.5-5.1) Chloride Level 112 MMOL/L (98-107) H Carbon Dioxide Level 18 MMOL/L (21-32) L Anion Gap 11 mmol/L (5-15) Blood Urea Nitrogen 18 mg/dL (7-18) Creatinine 1.5 MG/DL (0.55-1.30) H Estimat Glomerular Filtration Rate 42.9 mL/min (>60) Glucose Level 104 MG/DL (74-106) Calcium Level 8.1 MG/DL (8.5-10.1) L Phosphorus Level 3.7 MG/DL (2.5-4.9) Magnesium Level 1.3 MG/DL (1.8-2.4) L Total Creatine Kinase 93 U/L (26-308) White Blood Count 15.3 K/UL (4.8-10.8) H Red Blood Count 2.78 M/UL (4.20-5.40) L Hemoglobin 8.6 G/DL (12.0-16.0) L Hematocrit 26.3 % (37.0-47.0) L Mean Corpuscular Volume 95 FL (80-99) Mean Corpuscular Hemoglobin 30.9 PG (27.0-31.0) Mean Corpuscular Hemoglobin Concent 32.7 G/DL (32.0-36.0) Red Cell Distribution Width 15.1 % (11.6-14.8) H Platelet Count 184 K/UL (150-450) Mean Platelet Volume 8.7 FL (6.5-10.1) Neutrophils (%) (Auto) 80.9 % (45.0-75.0) H Lymphocytes (%) (Auto) 7.7 % (20.0-45.0) L Monocytes (%) (Auto) 9.9 % (1.0-10.0) Eosinophils (%) (Auto) 0.7 % (0.0-3.0) Basophils (%) (Auto) 0.8 % (0.0-2.0) Current Medications Medications (Trade) Dose Ordered Sig/Dmitri Route PRN Reason Start Time Stop Time Status Last Admin Dose Admin Acetaminophen (Tylenol) 650 mg Q4H PRN RECTAL FEVER 06/29/19 11:01 07/29/19 11:00 Albuterol/ Ipratropium (Albuterol/ Ipratropium) 3 ml Q4HRT HHN 07/04/19 20:55 07/09/19 20:54 07/07/19 07:20 Chlorhexidine Gluconate (Lynn-Hex 2%) 1 applic DAILY@2000 TOPIC 06/29/19 20:00 07/29/19 19:59 07/06/19 19:53 Clonidine HCl (Catapres TTS-1) 1 patch QWEEK TDERMAL 07/04/19 15:00 08/03/19 14:59 07/04/19 15:47 Dextrose (Dextrose 50%) 25 ml Q30M PRN IV Hypoglycemia 06/30/19 15:00 07/30/19 14:59 Dextrose (Dextrose 50%) 50 ml Q30M PRN IV Hypoglycemia 06/30/19 15:00 07/30/19 14:59 Dextrose/ Electrolytes 1,000 ml @ 100 mls/hr Q10H IV 07/06/19 13:30 08/05/19 13:29 07/07/19 09:52 Diphenhydramine HCl (Benadryl) 25 mg Q6H PRN IVP Muscle Spasm 06/29/19 11:01 07/29/19 11:00 07/06/19 17:25 Epinephrine 1 mg/ Dextrose 250 ml @ 0 mls/hr Q24H IV 06/29/19 16:00 07/29/19 15:59 Epoetin Eric (Epoetin Eric(ESRD on dialysis)) 8,000 unit MON-MON-MON SUBQ 07/01/19 21:00 07/31/19 20:59 07/05/19 21:06 Famotidine (Pepcid I.v.) 20 mg Q12HR IVP 06/30/19 21:00 07/30/19 20:59 07/07/19 09:53 Fentanyl Citrate 2500 mcg/Sodium Chloride 250 ml @ 0 mls/hr Q24H IV 06/29/19 12:30 07/13/19 12:29 07/06/19 13:56 Hydralazine HCl (Apresoline) 10 mg Q2H PRN IV For High Blood Pressure 07/02/19 21:15 08/01/19 21:14 07/04/19 18:32 Hydromorphone HCl (Dilaudid) 2 mg Q3H PRN IVP SEVERE BREAKTHROUGH PAIN 07/06/19 13:45 07/13/19 13:44 07/06/19 17:25 Insulin Aspart (NovoLOG) BEFORE MEALS AND HS SUBQ 06/30/19 16:30 07/30/19 16:29 07/06/19 21:10 Lorazepam (Ativan 2mg/ml 1ml) 2 mg Q4H PRN IV For Anxiety 07/03/19 09:15 07/10/19 09:14 07/07/19 10:27 Magnesium Sulfate 100 ml @ 100 mls/hr Q1H IVPB 07/07/19 09:00 07/07/19 10:59 07/07/19 09:53 Methylprednisolone Sodium Succinate (Solu-MEDROL) 40 mg DAILY IVP 07/05/19 09:00 07/29/19 13:59 07/07/19 09:51 Metoclopramide HCl (Reglan) 10 mg Q6H PRN IVP Nausea & Vomiting 06/29/19 11:01 07/29/19 11:00 Norepinephrine Bitartrate 8 mg/ Dextrose 508 ml @ 0 mls/hr Q24H IV 06/29/19 12:30 07/29/19 12:29 06/30/19 11:42 Ondansetron HCl (Zofran) 4 mg Q6H PRN IVP Nausea & Vomiting 06/29/19 11:01 07/29/19 11:00 Potassium Chloride 100 ml @ 50 mls/hr ONCE ONCE IVPB 07/07/19 09:00 07/07/19 10:59 07/07/19 09:53 Thiamine HCl 100 mg/Dextrose 56 ml @ 112 mls/hr DAILY IVPB 07/03/19 11:00 08/02/19 10:59 07/07/19 09:52 Vasopressin 100 units/Sodium Chloride 100 ml @ 2.4 mls/hr Q24H IV 06/29/19 14:15 07/29/19 14:14 06/30/19 15:40 Kwaku Garcia MD Jul 07, 2019 10:56
--- NOTE | 2019-07-07 10:59 | Nephrology Progress Note ---
Assessment/Plan Problem List: (1) Rhabdomyolysis (2) JUANITA (acute kidney injury) (3) Angioedema (4) Hypertension (5) Tracheostomy complication Plan creatinine and ck lower, nonoliguric, no dialysis removed dave, low Mg to replace Subjective Constitutional: Reports: weakness HEENT: Reports: no symptoms Genitourinary: Reports: no symptoms Neurologic/Psychiatric: Reports: no symptoms Objective Objective Last 24 Hour Vital Signs Date Time Temp Pulse Resp B/P (MAP) Pulse Ox O2 Delivery O2 Flow Rate FiO2 07/07/19 09:20 99 07/07/19 08:54 85 27 30 07/07/19 07:20 89 24 100 Mechanical Ventilator 30 07/07/19 07:15 96 24 30 07/07/19 07:00 98 24 147/95 (112) 98 07/07/19 06:30 101 23 151/91 (111) 100 07/07/19 06:00 18 Mechanical Ventilator 30 07/07/19 06:00 83 20 153/91 (111) 100 07/07/19 05:30 84 20 149/89 (109) 100 07/07/19 05:00 91 21 147/82 (103) 100 07/07/19 05:00 18 Mechanical Ventilator 30 07/07/19 04:45 93 19 138/71 (93) 100 07/07/19 04:41 89 22 30 07/07/19 04:30 94 20 147/92 (110) 100 07/07/19 04:15 90 19 147/90 (109) 100 07/07/19 04:00 30 07/07/19 04:00 Mechanical Ventilator 07/07/19 04:00 18 Mechanical Ventilator 30 07/07/19 04:00 95 07/07/19 04:00 98.5 92 29 152/87 (108) 100 07/07/19 03:30 93 20 162/97 (118) 100 07/07/19 03:11 98 22 100 30 100 20 30 07/07/19 03:00 98 22 155/99 (117) 100 07/07/19 03:00 18 Mechanical Ventilator 07/07/19 02:30 93 20 152/91 (111) 100 07/07/19 02:00 92 19 154/90 (111) 100 07/07/19 02:00 18 Non-Rebreather 30 07/07/19 01:30 108 23 176/117 (136) 100 07/07/19 01:10 106 19 30 07/07/19 01:00 18 Mechanical Ventilator 30 07/07/19 01:00 92 21 155/86 (109) 100 07/07/19 00:45 90 18 139/80 (99) 100 07/07/19 00:30 81 21 134/78 (96) 100 07/07/19 00:15 94 21 139/81 (100) 100 07/07/19 00:00 Mechanical Ventilator 07/07/19 00:00 75 07/07/19 00:00 98.7 89 20 140/80 (100) 100 07/07/19 00:00 18 Mechanical Ventilator 30 07/07/19 00:00 30 07/06/19 23:30 78 18 140/103 (115) 100 07/06/19 23:20 78 20 100 30 82 18 30 07/06/19 23:00 18 Mechanical Ventilator 30 07/06/19 23:00 80 21 137/80 (99) 100 07/06/19 22:30 85 23 135/83 (100) 100 07/06/19 22:00 18 Mechanical Ventilator 30 07/06/19 22:00 81 19 134/78 (96) 100 07/06/19 21:30 77 18 141/83 (102) 100 07/06/19 21:17 80 18 30 07/06/19 21:00 79 21 136/82 (100) 100 07/06/19 21:00 18 Mechanical Ventilator 30 07/06/19 20:30 81 20 136/84 (101) 100 07/06/19 20:00 Mechanical Ventilator 07/06/19 20:00 74 07/06/19 20:00 18 Mechanical Ventilator 30 07/06/19 20:00 98.3 78 19 133/76 (95) 100 07/06/19 20:00 30 07/06/19 19:30 67 18 143/80 (101) 100 07/06/19 19:30 65 18 100 30 68 18 30 07/06/19 19:00 18 Mechanical Ventilator 30 07/06/19 19:00 72 18 136/81 (99) 100 07/06/19 18:30 74 18 129/86 (100) 100 07/06/19 18:00 81 18 134/86 (102) 100 07/06/19 18:00 Mechanical Ventilator 07/06/19 17:30 86 18 147/90 (109) 100 07/06/19 17:00 86 18 30 07/06/19 17:00 91 19 148/87 (107) 100 07/06/19 17:00 Mechanical Ventilator 07/06/19 16:30 88 20 103/67 (79) 100 07/06/19 16:00 Mechanical Ventilator 07/06/19 16:00 98.9 90 21 100/67 (78) 100 07/06/19 16:00 Mechanical Ventilator 07/06/19 16:00 30 07/06/19 16:00 92 07/06/19 15:30 94 24 111/66 (81) 100 07/06/19 15:04 73 20 100 Mechanical Ventilator 30 82 21 30 07/06/19 15:00 70 20 105/73 (84) 100 07/06/19 15:00 Mechanical Ventilator 07/06/19 14:45 77 18 89/64 (72) 100 07/06/19 14:30 78 18 91/65 (74) 100 07/06/19 14:00 75 18 96/64 (75) 100 07/06/19 13:56 Mechanical Ventilator 07/06/19 13:30 79 18 106/62 (77) 100 07/06/19 13:26 82 18 30 07/06/19 13:22 Mechanical Ventilator 07/06/19 13:00 Mechanical Ventilator 07/06/19 13:00 83 18 89/62 (71) 100 07/06/19 12:30 92 18 89/63 (72) 100 07/06/19 12:00 84 07/06/19 12:00 Mechanical Ventilator 07/06/19 12:00 99.1 96 18 105/67 (80) 100 07/06/19 12:00 30 07/06/19 12:00 Mechanical Ventilator 07/06/19 11:32 88 23 100 Mechanical Ventilator 30 90 19 30 07/06/19 11:30 99 20 110/72 (85) 100 07/06/19 11:00 83 19 99/61 (74) 100 07/06/19 11:00 Mechanical Ventilator Intake and Output 07/06/19 07/07/19 19:00 07:00 Intake Total 791 ml 45 ml Output Total 880 ml 1000 ml Balance -89 ml -955 ml Intake IV Total 791 ml 45 ml Output Urine Total 880 ml 1000 ml Laboratory Tests 07/07/19 07:00: Sodium Level 141, Potassium Level 3.9, Chloride Level 112H, Carbon Dioxide Level 18L, Anion Gap 11, Blood Urea Nitrogen 18, Creatinine 1.5H, Estimat Glomerular Filtration Rate 42.9, Glucose Level 104, Calcium Level 8.1L, Phosphorus Level 3.7, Magnesium Level 1.3L, Total Creatine Kinase 93 07/07/19 09:14: White Blood Count 15.3H, Red Blood Count 2.78L, Hemoglobin 8.6L, Hematocrit 26.3L, Mean Corpuscular Volume 95, Mean Corpuscular Hemoglobin 30.9, Mean Corpuscular Hemoglobin Concent 32.7, Red Cell Distribution Width 15.1H, Platelet Count 184, Mean Platelet Volume 8.7, Neutrophils (%) (Auto) 80.9H, Lymphocytes (%) (Auto) 7.7L, Monocytes (%) (Auto) 9.9, Eosinophils (%) (Auto) 0.7, Basophils (%) (Auto) 0.8 Height (Feet): 5 Height (Inches): 4.00 Weight (Pounds): 170 General Appearance: no apparent distress, alert EENT: normal ENT inspection Neck: other - trach Cardiovascular: normal rate, regular rhythm Respiratory/Chest: rhonchi - bilaterally Abdomen: non tender, soft Extremities: other - no edema Neurologic: fine patcher II-XII grossly normal Henry Seymour MD Jul 07, 2019 10:59
[2019-07-07] MEDS ORDERED: Cefepime HCl 1 GM in D5W 55 ML IVPB SCH (11:00)
[2019-07-07] MEDS: Cefepime 2gm/D5W 110ml IV SCH ×2 (11:48)
--- NOTE | 2019-07-07 11:48 | Diagnostic Imaging Report ---
EXAM: XR Abdomen, 1 Views CLINICAL HISTORY: F/U TECHNIQUE: Frontal view of the abdomen/pelvis. COMPARISON: No relevant prior studies available. FINDINGS: Gastrointestinal tract: Mild nonspecific gassy small bowel. No dilation. Bones/joints: Unremarkable. Tubes, lines and devices: Feeding tube tip in the distal stomach. IMPRESSION: Feeding tube tip in the distal stomach.
[2019-07-07] MEDS: Atovaquone 750mg/5ml Susp NG SCH (12:12)
--- NOTE | 2019-07-07 12:12 | Pulmonolgy Critical Care Note ---
Critical Care - Asmt/Plan Assessment/Plan: Pulmonary CCM Progress Note Patient is a 59-year-old female admitted with acute airway compromise complicating Angioedema, she has a history of hypertension. Presented with a severe allergic reaction. She woke up 2 hours prior to arrival with her tongue being swollen. S/p 4 unit transfusion on day of admission - post OR was hypotensive - had EBL 2000ml, pressors weaned off, weaning to TC as tolerated Oliguric, Renal following, renal function improving, required HD Allergies: No Known Allergies Past Medical History: Hypertension All Other Systems: negative except mentioned in HPI Physical Exam Vital signs noted, on ACV via tracheostomy General Appearance: Mildly sedated, interactive Head: normocephalic, atraumatic Eyes: bilateral eye PERRL, bilateral eye EOMI ENT: Mosit mm. tracheostomy site, no active bleeding Neck: swollen, no LN Respiratory: chest non-tender, lungs clear, normal breath sounds Cardiovascular: Normal HS1, HS2, regular rate, rhythm, no murmur Gastrointestinal: normal bowel sounds, non tender, no mass, no organomegaly, no bruit, non-distended Musculoskeletal: back normal, gait/station normal, normal range of motion Neurological: No focal signs, moving all limbs, PERRL Impression: Angioedema s/p Emergent Tracheostomy Severe Hypotension associated with acute blood loss - EBL 2000ml ARF, HD requiring Previous Hypertension Cocaine use previously Plan HD per Renal Cardiology following Wean as tolerated ISS Monitor labs PRN sedation SCD Wean to TC as tolerated PPX Continue current management EKG: tachycardiac: NSR, no acute ST changes Chest X-Ray: no consolidation, no effusion, no pneumothorax, no acute cardiopulmonary disease, tracheostomy position appropriate Critical Care - Objective Last 24 Hour Vital Signs Date Time Temp Pulse Resp B/P (MAP) Pulse Ox O2 Delivery O2 Flow Rate FiO2 07/07/19 11:48 154/94 07/07/19 11:18 91 23 30 07/07/19 09:20 99 07/07/19 08:54 85 27 30 07/07/19 07:20 89 24 100 Mechanical Ventilator 30 07/07/19 07:15 96 24 30 07/07/19 07:00 98 24 147/95 (112) 98 07/07/19 06:30 101 23 151/91 (111) 100 07/07/19 06:00 18 Mechanical Ventilator 30 07/07/19 06:00 83 20 153/91 (111) 100 07/07/19 05:30 84 20 149/89 (109) 100 07/07/19 05:00 91 21 147/82 (103) 100 07/07/19 05:00 18 Mechanical Ventilator 30 07/07/19 04:45 93 19 138/71 (93) 100 07/07/19 04:41 89 22 30 07/07/19 04:30 94 20 147/92 (110) 100 07/07/19 04:15 90 19 147/90 (109) 100 07/07/19 04:00 30 07/07/19 04:00 Mechanical Ventilator 07/07/19 04:00 18 Mechanical Ventilator 07/07/19 04:00 95 07/07/19 04:00 98.5 92 29 152/87 (108) 100 07/07/19 03:30 93 20 162/97 (118) 100 07/07/19 03:11 98 22 100 30 100 20 30 07/07/19 03:00 98 22 155/99 (117) 100 07/07/19 03:00 18 Mechanical Ventilator 07/07/19 02:30 93 20 152/91 (111) 100 07/07/19 02:00 92 19 154/90 (111) 100 07/07/19 02:00 18 Non-Rebreather 07/07/19 01:30 108 23 176/117 (136) 100 07/07/19 01:10 106 19 30 07/07/19 01:00 18 Mechanical Ventilator 07/07/19 01:00 92 21 155/86 (109) 100 07/07/19 00:45 90 18 139/80 (99) 100 07/07/19 00:30 81 21 134/78 (96) 100 07/07/19 00:15 94 21 139/81 (100) 100 07/07/19 00:00 Mechanical Ventilator 07/07/19 00:00 75 07/07/19 00:00 98.7 89 20 140/80 (100) 100 07/07/19 00:00 18 Mechanical Ventilator 30 07/07/19 00:00 30 07/06/19 23:30 78 18 140/103 (115) 100 07/06/19 23:20 78 20 100 30 82 18 30 07/06/19 23:00 18 Mechanical Ventilator 30 07/06/19 23:00 80 21 137/80 (99) 100 07/06/19 22:30 85 23 135/83 (100) 100 07/06/19 22:00 18 Mechanical Ventilator 30 07/06/19 22:00 81 19 134/78 (96) 100 07/06/19 21:30 77 18 141/83 (102) 100 07/06/19 21:17 80 18 30 07/06/19 21:00 79 21 136/82 (100) 100 07/06/19 21:00 18 Mechanical Ventilator 30 07/06/19 20:30 81 20 136/84 (101) 100 07/06/19 20:00 Mechanical Ventilator 07/06/19 20:00 74 07/06/19 20:00 18 Mechanical Ventilator 30 07/06/19 20:00 98.3 78 19 133/76 (95) 100 07/06/19 20:00 30 07/06/19 19:30 67 18 143/80 (101) 100 07/06/19 19:30 65 18 100 30 68 18 30 07/06/19 19:00 18 Mechanical Ventilator 30 07/06/19 19:00 72 18 136/81 (99) 100 07/06/19 18:30 74 18 129/86 (100) 100 07/06/19 18:00 81 18 134/86 (102) 100 07/06/19 18:00 Mechanical Ventilator 07/06/19 17:30 86 18 147/90 (109) 100 07/06/19 17:00 86 18 30 07/06/19 17:00 91 19 148/87 (107) 100 07/06/19 17:00 Mechanical Ventilator 07/06/19 16:30 88 20 103/67 (79) 100 07/06/19 16:00 Mechanical Ventilator 07/06/19 16:00 98.9 90 21 100/67 (78) 100 07/06/19 16:00 Mechanical Ventilator 07/06/19 16:00 30 07/06/19 16:00 92 07/06/19 15:30 94 24 111/66 (81) 100 07/06/19 15:04 73 20 100 Mechanical Ventilator 30 82 21 30 07/06/19 15:00 70 20 105/73 (84) 100 07/06/19 15:00 Mechanical Ventilator 07/06/19 14:45 77 18 89/64 (72) 100 07/06/19 14:30 78 18 91/65 (74) 100 07/06/19 14:00 75 18 96/64 (75) 100 07/06/19 13:56 Mechanical Ventilator 07/06/19 13:30 79 18 106/62 (77) 100 07/06/19 13:26 82 18 30 07/06/19 13:22 Mechanical Ventilator 07/06/19 13:00 Mechanical Ventilator 07/06/19 13:00 83 18 89/62 (71) 100 07/06/19 12:30 92 18 89/63 (72) 100 Accucheck: 95 Critical Care - Subjective ROS Limited/Unobtainable: No FI02: 30 Vent Support Breath Rate: 18 Vent Support Mode: AC Vent Tidal Volume: 550 Sputum Amount: Small PEEP: 5.0 PIP: 21 I&O: Intake and Output 07/06/19 07/07/19 19:00 07:00 Intake Total 791 ml 45 ml Output Total 880 ml 1000 ml Balance -89 ml -955 ml Intake IV Total 791 ml 45 ml Output Urine Total 880 ml 1000 ml Deangelo John MD Jul 07, 2019 12:12
--- NOTE | 2019-07-07 12:35 | Hematology/Onc Progress Note ---
Assessment/Plan Assessment/Plan A/R # Thrombocytopenia - potential causes multifactorial, evaluate liver and viral etiologies to begin, also could be related to underlying medications patient has received. 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 Significance/etiology uncertain. This can be seen in chronic pancreatitis as well as ductectatic neoplasm--> once more stable get Ct with iv cont --> DIC panel has been reviewed, NEgative --> Peripheral smear ordered to evaluate for blasts /schistocytes and none noted --> abx and other meds have been reviewed --> ok for ppx if plt >50k w/ either heparin or lovenox --> Transfuse if Plt < 20k and fever, or if Plt < 10k without fever --> plt trend 200-->87-->60-->38k-> 50k-->91k-->110k-->138k-->184k -> [id number] ordered -- > is neg --> ID eval and care per id # Anemia of chronic disease due to underlying chronic medical issues, multifactorial --> Anemia workup has been ordered and c/w acd --> No evidence of hemolysis is noted, peripheral smear has been reviewed. --> Hgb goal >7. Transfuse prn. --> Epogen or iron at this time is not particularly indicated --> Medications have been reviewed --> low threshold for gi evaluation in case has occult + --> hgb trend 8.7--> 9-->10.9-->9.7 # Leukocytosis --> wbc trend 17-->15-->14k->16-->19.4-->15-->15.9 --> steriods for angioedema # Angioedeam --> ffp, steriods given --> s/p trach # Resp failure s/p trach --> to vent # Severe Hypotension , Now off both pressors. # Hx of Hypertension # Cocaine abuse # ARF on HD now --> 07/02, 07/03 hd # HIV++ The timing of this note does not necessarily reflect the time of the patient was seen. GREATLY APPRECIATE CONSULTATION. Subjective HEENT: Denies: no symptoms, eye pain, blurred vision, tearing, double vision, ear pain, ear discharge, nose pain, nose congestion, throat pain, throat swelling, mouth pain, mouth swelling, other Cardiovascular: Denies: no symptoms, chest pain, edema, irregular heart rate, lightheadedness, palpitations, syncope, other Respiratory: Denies: no symptoms, cough, shortness of breath, SOB with excertion, SOB at rest, sputum, wheezing, other Gastrointestinal/Abdominal: Denies: no symptoms, abdomen distended, abdominal pain, black stools, tarry stools, blood in stool, constipated, diarrhea, difficulty swallowing, nausea, poor appetite, poor fluid intake, rectal bleeding , vomiting, other Neurologic/Psychiatric: Denies: no symptoms, anxiety, depressed, emotional problems, headache, numbness, paresthesia, pre-existing deficit, seizure, tingling, tremors, weakness, other Endocrine: Denies: no symptoms, excessive sweating, flushing, intolerance to cold, intolerance to heat, increased hunger, increased thirst, increased urine, unexplained weight gain, unexplained weight loss, other Allergies: Coded Allergies: No Known Allergies (Unverified , 06/29/19) Subjective 07/02: remains in the icu, onpressors and epogen, hgb stable 07/03: in icu, no events, on vent, no fever or chills, denies pain or sob 07/04: s/p vent/trach, on fentanyl gtt, id made aware of HIV++ 07/05: sedated, trach, off abx, labs reviewed 07/07: weaning off pressors, no fevers or chills, is on pcp ppx Objective Objective Current Medications Medications (Trade) Dose Ordered Sig/Dmitri Route PRN Reason Start Time Stop Time Status Last Admin Dose Admin Acetaminophen (Tylenol) 650 mg Q4H PRN RECTAL FEVER 06/29/19 11:01 07/29/19 11:00 Albuterol/ Ipratropium (Albuterol/ Ipratropium) 3 ml Q4HRT HHN 07/04/19 20:55 07/09/19 20:54 07/07/19 11:45 Atovaquone (Mepron Susp) 1,500 mg DAILY NG 07/07/19 12:30 08/06/19 12:29 07/07/19 12:12 Cefepime HCl 2 gm/ Dextrose 110 ml @ 220 mls/hr Q24H IV 07/07/19 12:00 07/14/19 11:59 07/07/19 11:48 Chlorhexidine Gluconate (Lynn-Hex 2%) 1 applic DAILY@2000 TOPIC 06/29/19 20:00 07/29/19 19:59 07/06/19 19:53 Clonidine HCl (Catapres TTS-1) 1 patch QWEEK TDERMAL 07/04/19 15:00 08/03/19 14:59 07/04/19 15:47 Dextrose (Dextrose 50%) 25 ml Q30M PRN IV Hypoglycemia 06/30/19 15:00 07/30/19 14:59 Dextrose (Dextrose 50%) 50 ml Q30M PRN IV Hypoglycemia 06/30/19 15:00 07/30/19 14:59 Dextrose/ Electrolytes 1,000 ml @ 100 mls/hr Q10H IV 07/06/19 13:30 08/05/19 13:29 07/07/19 09:52 Diphenhydramine HCl (Benadryl) 25 mg Q6H PRN IVP Muscle Spasm 06/29/19 11:01 07/29/19 11:00 07/06/19 17:25 Epinephrine 1 mg/ Dextrose 250 ml @ 0 mls/hr Q24H IV 06/29/19 16:00 07/29/19 15:59 Epoetin Eric (Epoetin Eric(ESRD on dialysis)) 8,000 unit SUBQ 07/01/19 21:00 07/31/19 20:59 07/05/19 21:06 Famotidine (Pepcid I.v.) 20 mg Q12HR IVP 06/30/19 21:00 07/30/19 20:59 07/07/19 09:53 Fentanyl Citrate 2500 mcg/Sodium Chloride 250 ml @ 0 mls/hr Q24H IV 06/29/19 12:30 07/13/19 12:29 07/06/19 13:56 Hydralazine HCl (Apresoline) 10 mg Q2H PRN IV For High Blood Pressure 07/02/19 21:15 08/01/19 21:14 07/04/19 18:32 Hydromorphone HCl (Dilaudid) 2 mg Q3H PRN IVP SEVERE BREAKTHROUGH PAIN 07/06/19 13:45 07/13/19 13:44 07/06/19 17:25 Insulin Aspart (NovoLOG) BEFORE MEALS AND HS SUBQ 06/30/19 16:30 07/30/19 16:29 07/07/19 12:11 Lorazepam (Ativan 2mg/ml 1ml) 2 mg Q4H PRN IV For Anxiety 07/03/19 09:15 07/10/19 09:14 07/07/19 10:27 Magnesium Oxide (Mag-Ox 400mg) 400 mg THREE TIMES A DAY NG 07/07/19 13:00 08/06/19 12:59 Methylprednisolone Sodium Succinate (Solu-MEDROL) 40 mg DAILY IVP 07/05/19 09:00 07/29/19 13:59 07/07/19 09:51 Metoclopramide HCl (Reglan) 10 mg Q6H PRN IVP Nausea & Vomiting 06/29/19 11:01 07/29/19 11:00 Norepinephrine Bitartrate 8 mg/ Dextrose 508 ml @ 0 mls/hr Q24H IV 06/29/19 12:30 07/29/19 12:29 06/30/19 11:42 Ondansetron HCl (Zofran) 4 mg Q6H PRN IVP Nausea & Vomiting 06/29/19 11:01 07/29/19 11:00 Thiamine HCl 100 mg/Dextrose 56 ml @ 112 mls/hr DAILY IVPB 07/03/19 11:00 08/02/19 10:59 07/07/19 09:52 Vasopressin 100 units/Sodium Chloride 100 ml @ 2.4 mls/hr Q24H IV 06/29/19 14:15 07/29/19 14:14 06/30/19 15:40 Last 24 Hour Vital Signs Date Time Temp Pulse Resp B/P (MAP) Pulse Ox O2 Delivery O2 Flow Rate FiO2 07/07/19 11:48 154/94 07/07/19 11:18 91 23 30 07/07/19 09:20 99 07/07/19 08:54 85 27 30 07/07/19 07:20 89 24 100 Mechanical Ventilator 30 07/07/19 07:15 96 24 30 07/07/19 07:00 98 24 147/95 (112) 98 07/07/19 06:30 101 23 151/91 (111) 100 07/07/19 06:00 18 Mechanical Ventilator 30 07/07/19 06:00 83 20 153/91 (111) 100 07/07/19 05:30 84 20 149/89 (109) 100 07/07/19 05:00 91 21 147/82 (103) 100 07/07/19 05:00 18 Mechanical Ventilator 30 07/07/19 04:45 93 19 138/71 (93) 100 07/07/19 04:41 89 22 30 07/07/19 04:30 94 20 147/92 (110) 100 07/07/19 04:15 90 19 147/90 (109) 100 07/07/19 04:00 30 07/07/19 04:00 Mechanical Ventilator 07/07/19 04:00 18 Mechanical Ventilator 07/07/19 04:00 95 07/07/19 04:00 98.5 92 29 152/87 (108) 100 07/07/19 03:30 93 20 162/97 (118) 100 07/07/19 03:11 98 22 100 30 100 20 30 07/07/19 03:00 98 22 155/99 (117) 100 07/07/19 03:00 18 Mechanical Ventilator 07/07/19 02:30 93 20 152/91 (111) 100 07/07/19 02:00 92 19 154/90 (111) 100 07/07/19 02:00 18 Non-Rebreather 30 07/07/19 01:30 108 23 176/117 (136) 100 07/07/19 01:10 106 19 30 07/07/19 01:00 18 Mechanical Ventilator 07/07/19 01:00 92 21 155/86 (109) 100 07/07/19 00:45 90 18 139/80 (99) 100 07/07/19 00:30 81 21 134/78 (96) 100 07/07/19 00:15 94 21 139/81 (100) 100 07/07/19 00:00 Mechanical Ventilator 07/07/19 00:00 75 07/07/19 00:00 98.7 89 20 140/80 (100) 100 07/07/19 00:00 18 Mechanical Ventilator 30 07/07/19 00:00 30 07/06/19 23:30 78 18 140/103 (115) 100 07/06/19 23:20 78 20 100 30 82 18 30 07/06/19 23:00 18 Mechanical Ventilator 30 07/06/19 23:00 80 21 137/80 (99) 100 07/06/19 22:30 85 23 135/83 (100) 100 07/06/19 22:00 18 Mechanical Ventilator 30 07/06/19 22:00 81 19 134/78 (96) 100 07/06/19 21:30 77 18 141/83 (102) 100 07/06/19 21:17 80 18 30 07/06/19 21:00 79 21 136/82 (100) 100 07/06/19 21:00 18 Mechanical Ventilator 30 07/06/19 20:30 81 20 136/84 (101) 100 07/06/19 20:00 Mechanical Ventilator 07/06/19 20:00 74 07/06/19 20:00 18 Mechanical Ventilator 30 07/06/19 20:00 98.3 78 19 133/76 (95) 100 07/06/19 20:00 30 07/06/19 19:30 67 18 143/80 (101) 100 07/06/19 19:30 65 18 100 30 68 18 30 07/06/19 19:00 18 Mechanical Ventilator 30 07/06/19 19:00 72 18 136/81 (99) 100 07/06/19 18:30 74 18 129/86 (100) 100 07/06/19 18:00 81 18 134/86 (102) 100 07/06/19 18:00 Mechanical Ventilator 07/06/19 17:30 86 18 147/90 (109) 100 07/06/19 17:00 86 18 30 07/06/19 17:00 91 19 148/87 (107) 100 07/06/19 17:00 Mechanical Ventilator 07/06/19 16:30 88 20 103/67 (79) 100 07/06/19 16:00 Mechanical Ventilator 07/06/19 16:00 98.9 90 21 100/67 (78) 100 07/06/19 16:00 Mechanical Ventilator 07/06/19 16:00 30 8/24/19 16:00 92 07/06/19 15:30 94 24 111/66 (81) 100 07/06/19 15:04 73 20 100 Mechanical Ventilator 30 82 21 30 07/06/19 15:00 70 20 105/73 (84) 100 07/06/19 15:00 Mechanical Ventilator 07/06/19 14:45 77 18 89/64 (72) 100 07/06/19 14:30 78 18 91/65 (74) 100 07/06/19 14:00 75 18 96/64 (75) 100 07/06/19 13:56 Mechanical Ventilator 07/06/19 13:30 79 18 106/62 (77) 100 07/06/19 13:26 82 18 30 07/06/19 13:22 Mechanical Ventilator 07/06/19 13:00 Mechanical Ventilator 07/06/19 13:00 83 18 89/62 (71) 100 07/06/19 12:30 92 18 89/63 (72) 100 07/06/19 12:00 84 07/06/19 12:00 Mechanical Ventilator 07/06/19 12:00 99.1 96 18 105/67 (80) 100 07/06/19 12:00 30 07/06/19 12:00 Mechanical Ventilator 07/06/19 11:32 88 23 100 Mechanical Ventilator 30 90 19 30 07/06/19 11:30 99 20 110/72 (85) 100 07/06/19 11:00 83 19 99/61 (74) 100 07/06/19 11:00 Mechanical Ventilator 07/06/19 10:30 90 19 112/68 (83) 100 07/06/19 10:30 Mechanical Ventilator 07/06/19 10:26 100 07/06/19 10:20 Mechanical Ventilator 07/06/19 10:15 Mechanical Ventilator 07/06/19 10:00 30 07/06/19 10:00 92 23 109/68 (82) 100 07/06/19 10:00 Mechanical Ventilator 07/06/19 09:50 Mechanical Ventilator 07/06/19 09:33 Mechanical Ventilator 07/06/19 09:30 99 27 121/83 (96) 100 07/06/19 09:01 103 23 30 30 07/06/19 09:00 96 21 116/70 (85) 100 07/06/19 09:00 Mechanical Ventilator 8/24/19 08:45 Mechanical Ventilator 07/06/19 08:30 97 19 108/62 (77) 100 07/06/19 08:30 Mechanical Ventilator 07/06/19 08:00 100.1 100 19 107/67 (80) 100 07/06/19 08:00 30 07/06/19 08:00 Mechanical Ventilator 07/06/19 08:00 Mechanical Ventilator 07/06/19 08:00 94 07/06/19 07:30 90 14 131/80 (97) 100 07/06/19 07:22 91 20 100 Mechanical Ventilator 30 88 19 30 07/06/19 07:00 30 07/06/19 07:00 18 Mechanical Ventilator 30 07/06/19 07:00 88 18 113/66 (82) 07/06/19 06:45 85 19 104/63 (77) 07/06/19 06:30 91 20 102/64 (77) 07/06/19 06:15 89 20 100 07/06/19 06:00 18 Mechanical Ventilator 30 07/06/19 06:00 89 19 137/82 (100) 100 07/06/19 05:45 86 19 130/78 (95) 100 07/06/19 05:30 90 18 125/81 (96) 100 07/06/19 05:20 84 19 30 07/06/19 05:15 90 18 131/80 (97) 100 07/06/19 05:00 18 Mechanical Ventilator 30 07/06/19 05:00 91 18 122/80 (94) 100 07/06/19 04:45 94 18 128/76 (93) 100 07/06/19 04:30 100 18 124/85 (98) 100 07/06/19 04:15 95 19 143/84 (103) 100 07/06/19 04:00 30 07/06/19 04:00 99.1 90 19 142/85 (104) 100 07/06/19 04:00 68 07/06/19 04:00 24 Mechanical Ventilator 30 07/06/19 04:00 Mechanical Ventilator 07/06/19 03:45 82 19 142/85 (104) 100 07/06/19 03:30 77 18 126/78 (94) 100 07/06/19 03:22 88 18 100 Mechanical Ventilator 30 89 18 30 07/06/19 03:00 24 Mechanical Ventilator 30 07/06/19 03:00 77 18 126/78 (94) 100 07/06/19 02:30 76 18 127/79 (95) 100 07/06/19 02:00 77 18 129/87 (101) 100 07/06/19 02:00 24 Mechanical Ventilator 30 07/06/19 01:30 82 19 145/83 (103) 100 07/06/19 01:00 90 18 126/81 (96) 100 07/06/19 01:00 18 Mechanical Ventilator 30 07/06/19 00:52 98.9 07/06/19 00:39 85 18 30 07/06/19 00:30 98 18 136/83 (100) 100 07/06/19 00:14 18 Mechanical Ventilator 8.0 30 07/06/19 00:00 Mechanical Ventilator 07/06/19 00:00 68 07/06/19 00:00 18 Mechanical Ventilator 30 07/06/19 00:00 30 07/06/19 00:00 98.7 85 18 145/91 (109) 100 07/05/19 23:40 87 18 100 Mechanical Ventilator 30 69 20 30 07/05/19 23:30 69 19 143/81 (101) 100 07/05/19 23:00 76 19 152/92 (112) 100 07/05/19 23:00 18 Mechanical Ventilator 30 07/05/19 22:30 69 20 146/90 (108) 100 07/05/19 22:00 80 19 156/92 (113) 100 07/05/19 22:00 18 Mechanical Ventilator 30 07/05/19 21:30 66 20 135/94 (108) 100 07/05/19 21:10 91 19 30 07/05/19 21:00 18 Mechanical Ventilator 30 07/05/19 21:00 77 18 123/76 (92) 100 07/05/19 20:30 67 18 144/78 (100) 100 07/05/19 20:00 98.9 71 19 144/78 (100) 100 07/05/19 20:00 18 Mechanical Ventilator 30 07/05/19 20:00 30 07/05/19 20:00 65 07/05/19 20:00 Mechanical Ventilator 07/05/19 19:30 65 19 156/80 (105) 100 07/05/19 19:22 87 18 100 Mechanical Ventilator 30 87 18 30 07/05/19 19:22 87 18 100 Mechanical Ventilator 30 07/05/19 19:00 67 19 153/84 (107) 100 07/05/19 19:00 18 Mechanical Ventilator 30 07/05/19 18:30 67 19 151/94 (113) 100 07/05/19 18:05 Mechanical Ventilator 07/05/19 18:00 70 20 148/91 (110) 100 07/05/19 17:30 72 18 153/93 (113) 100 07/05/19 17:02 23 Mechanical Ventilator 07/05/19 17:00 73 21 156/97 (116) 99 07/05/19 16:44 70 18 30 07/05/19 16:30 70 20 153/87 (109) 99 07/05/19 16:00 30 07/05/19 16:00 Mechanical Ventilator 07/05/19 16:00 98.9 71 18 149/96 (113) 98 07/05/19 16:00 19 Mechanical Ventilator 07/05/19 16:00 73 07/05/19 15:30 71 20 148/86 (106) 98 07/05/19 15:00 68 18 142/87 (105) 99 07/05/19 15:00 20 Mechanical Ventilator 07/05/19 14:58 68 18 100 Mechanical Ventilator 30 07/05/19 14:48 67 18 100 Mechanical Ventilator 30 07/05/19 14:46 67 18 30 07/05/19 14:30 70 18 146/90 (108) 100 07/05/19 14:00 71 18 151/102 (118) 100 07/05/19 14:00 19 Mechanical Ventilator 07/05/19 13:32 73 18 161/84 (109) 100 07/05/19 13:18 72 23 30 07/05/19 13:00 72 19 145/90 (108) 99 07/05/19 13:00 20 Mechanical Ventilator Intake and Output 07/06/19 07/07/19 19:00 07:00 Intake Total 791 ml 45 ml Output Total 880 ml 1000 ml Balance -89 ml -955 ml Intake IV Total 791 ml 45 ml Output Urine Total 880 ml 1000 ml Labs Test 07/04/19 20:21 07/05/19 05:50 07/06/19 06:20 07/07/19 07:00 Arterial Blood pH 7.384 (7.350-7.450) Arterial Blood Partial Pressure CO2 26.4 mmHg (35.0-45.0) Arterial Blood Partial Pressure O2 79.3 mmHg (75.0-100.0) Arterial Blood HCO3 15.4 mmol/L (22.0-26.0) Arterial Blood Oxygen Saturation 94.8 % (95-100) Arterial Blood Base Excess -8.3 (-2-2) Maxim Test Positive White Blood Count 15.9 K/UL (4.8-10.8) 14.6 K/UL (4.8-10.8) Red Blood Count 3.14 M/UL (4.20-5.40) 2.68 M/UL (4.20-5.40) Hemoglobin 9.8 G/DL (12.0-16.0) 8.5 G/DL (12.0-16.0) Hematocrit 29.6 % (37.0-47.0) 25.4 % (37.0-47.0) Mean Corpuscular Volume 94 FL (80-99) 95 FL (80-99) Mean Corpuscular Hemoglobin 31.3 PG (27.0-31.0) 31.5 PG (27.0-31.0) Mean Corpuscular Hemoglobin Concent 33.2 G/DL (32.0-36.0) 33.3 G/DL (32.0-36.0) Red Cell Distribution Width 15.5 % (11.6-14.8) 15.7 % (11.6-14.8) Platelet Count 138 K/UL (150-450) 131 K/UL (150-450) Mean Platelet Volume 9.7 FL (6.5-10.1) 8.4 FL (6.5-10.1) Neutrophils (%) (Auto) 81.9 % (45.0-75.0) 81.6 % (45.0-75.0) Lymphocytes (%) (Auto) 7.1 % (20.0-45.0) 7.4 % (20.0-45.0) Monocytes (%) (Auto) 9.6 % (1.0-10.0) 8.6 % (1.0-10.0) Eosinophils (%) (Auto) 0.3 % (0.0-3.0) 0.8 % (0.0-3.0) Basophils (%) (Auto) 1.1 % (0.0-2.0) 1.5 % (0.0-2.0) Lymphocytes 8 % (Not Estab.) Nucleated Red Blood Cells 1 % (0 - 0) Sodium Level 144 MMOL/L (136-145) 141 MMOL/L (136-145) 141 MMOL/L (136-145) Potassium Level 3.2 MMOL/L (3.5-5.1) 3.3 MMOL/L (3.5-5.1) 3.9 MMOL/L (3.5-5.1) Chloride Level 113 MMOL/L (98-107) 112 MMOL/L (98-107) 112 MMOL/L (98-107) Carbon Dioxide Level 19 MMOL/L (21-32) 20 MMOL/L (21-32) 18 MMOL/L (21-32) Anion Gap 12 mmol/L (5-15) 9 mmol/L (5-15) 11 mmol/L (5-15) Blood Urea Nitrogen 35 mg/dL (7-18) 25 mg/dL (7-18) 18 mg/dL (7-18) Creatinine 2.3 MG/DL (0.55-1.30) 1.8 MG/DL (0.55-1.30) 1.5 MG/DL (0.55-1.30) Estimat Glomerular Filtration Rate 26.3 mL/min (>60) 34.8 mL/min (>60) 42.9 mL/min (>60) Glucose Level 106 MG/DL (74-106) 113 MG/DL (74-106) 104 MG/DL (74-106) Calcium Level 8.1 MG/DL (8.5-10.1) 7.7 MG/DL (8.5-10.1) 8.1 MG/DL (8.5-10.1) Total Bilirubin 0.6 MG/DL (0.2-1.0) 0.5 MG/DL (0.2-1.0) Aspartate Amino Transf (AST/SGOT) 51 U/L (15-37) 26 U/L (15-37) Alanine Aminotransferase (ALT/SGPT) 214 U/L (12-78) 122 U/L (12-78) Alkaline Phosphatase 67 U/L (46-116) 49 U/L (46-116) Total Creatine Kinase 176 U/L (26-308) 93 U/L (26-308) Total Protein 6.2 G/DL (6.4-8.2) 5.2 G/DL (6.4-8.2) Albumin 2.7 G/DL (3.4-5.0) 2.0 G/DL (3.4-5.0) Globulin 3.5 g/dL 3.2 g/dL Albumin/Globulin Ratio 0.8 (1.0-2.7) 0.6 (1.0-2.7) Lipase 751 U/L (73-393) Absolute Lymphocytes (Cell Immunity 1.2 x10E3/uL (0.7-3.1) Percent CD3 Cells 81.7 % (57.5-86.2) Absolute CD3 Count 980 /uL (622-2402) Percent CD4 Cells 8.0 % (30.8-58.5) Absolute CD4 Count 96 /uL (359-1519) T-Lymphocyte CD4/CD8 Ratio 0.11 (0.92-3.72) Percent CD8 Cells 73.4 % (12.0-35.5) Absolute CD8 Count 881 /uL (109-897) Phosphorus Level 3.7 MG/DL (2.5-4.9) Magnesium Level 1.3 MG/DL (1.8-2.4) Test 07/07/19 09:14 White Blood Count 15.3 K/UL (4.8-10.8) Red Blood Count 2.78 M/UL (4.20-5.40) Hemoglobin 8.6 G/DL (12.0-16.0) Hematocrit 26.3 % (37.0-47.0) Mean Corpuscular Volume 95 FL (80-99) Mean Corpuscular Hemoglobin 30.9 PG (27.0-31.0) Mean Corpuscular Hemoglobin Concent 32.7 G/DL (32.0-36.0) Red Cell Distribution Width 15.1 % (11.6-14.8) Platelet Count 184 K/UL (150-450) Mean Platelet Volume 8.7 FL (6.5-10.1) Neutrophils (%) (Auto) 80.9 % (45.0-75.0) Lymphocytes (%) (Auto) 7.7 % (20.0-45.0) Monocytes (%) (Auto) 9.9 % (1.0-10.0) Eosinophils (%) (Auto) 0.7 % (0.0-3.0) Basophils (%) (Auto) 0.8 % (0.0-2.0) Height (Feet): 5 Height (Inches): 4.00 Weight (Pounds): 170 Objective Physical Exam: Vitals: reviewed General Appearance: NAD HEENT: normocephalic, atraumatic ++ trach VENT Neck: non-tender, normal alignment Respiratory/Chest: normal breath sounds bilaterally Cardiovascular/Chest: normal peripheral pulses, normal rate Abdomen: normal bowel sounds, soft, nontender Extremities: normal range of motion Jordan Nguyen MD Jul 07, 2019 12:35
[2019-07-07] MEDS: Vasopressin 100 UNITS in NS 95 ML IV SCH (13:23)
[2019-07-07] MEDS: Magnesium Oxide 400mg tab NG SCH ×2 (13:23→17:36)
--- NOTE | 2019-07-07 14:12 | Surgery Progress Note ---
Surgery Progress Note Subjective Additional Comments leukocytosis foul odor from trach site possible leak around trach with mucus possible infection>? Objective Last 24 Hour Vital Signs Date Time Temp Pulse Resp B/P (MAP) Pulse Ox O2 Delivery O2 Flow Rate FiO2 07/07/19 11:48 154/94 07/07/19 11:18 91 23 30 07/07/19 09:20 99 07/07/19 08:54 85 27 30 07/07/19 07:20 89 24 100 Mechanical Ventilator 30 07/07/19 07:15 96 24 30 07/07/19 07:00 98 24 147/95 (112) 98 07/07/19 06:30 101 23 151/91 (111) 100 07/07/19 06:00 18 Mechanical Ventilator 30 07/07/19 06:00 83 20 153/91 (111) 100 07/07/19 05:30 84 20 149/89 (109) 100 07/07/19 05:00 91 21 147/82 (103) 100 07/07/19 05:00 18 Mechanical Ventilator 30 07/07/19 04:45 93 19 138/71 (93) 100 07/07/19 04:41 89 22 30 07/07/19 04:30 94 20 147/92 (110) 100 07/07/19 04:15 90 19 147/90 (109) 100 07/07/19 04:00 30 07/07/19 04:00 Mechanical Ventilator 07/07/19 04:00 18 Mechanical Ventilator 07/07/19 04:00 95 07/07/19 04:00 98.5 92 29 152/87 (108) 100 07/07/19 03:30 93 20 162/97 (118) 100 07/07/19 03:11 98 22 100 30 100 20 30 07/07/19 03:00 98 22 155/99 (117) 100 07/07/19 03:00 18 Mechanical Ventilator 07/07/19 02:30 93 20 152/91 (111) 100 07/07/19 02:00 92 19 154/90 (111) 100 07/07/19 02:00 18 Non-Rebreather 30 07/07/19 01:30 108 23 176/117 (136) 100 07/07/19 01:10 106 19 30 07/07/19 01:00 18 Mechanical Ventilator 07/07/19 01:00 92 21 155/86 (109) 100 07/07/19 00:45 90 18 139/80 (99) 100 07/07/19 00:30 81 21 134/78 (96) 100 07/07/19 00:15 94 21 139/81 (100) 100 07/07/19 00:00 Mechanical Ventilator 07/07/19 00:00 75 07/07/19 00:00 98.7 89 20 140/80 (100) 100 07/07/19 00:00 18 Mechanical Ventilator 30 07/07/19 00:00 30 07/06/19 23:30 78 18 140/103 (115) 100 07/06/19 23:20 78 20 100 30 82 18 30 07/06/19 23:00 18 Mechanical Ventilator 30 07/06/19 23:00 80 21 137/80 (99) 100 07/06/19 22:30 85 23 135/83 (100) 100 07/06/19 22:00 18 Mechanical Ventilator 30 07/06/19 22:00 81 19 134/78 (96) 100 07/06/19 21:30 77 18 141/83 (102) 100 07/06/19 21:17 80 18 30 07/06/19 21:00 79 21 136/82 (100) 100 07/06/19 21:00 18 Mechanical Ventilator 30 07/06/19 20:30 81 20 136/84 (101) 100 07/06/19 20:00 Mechanical Ventilator 07/06/19 20:00 74 07/06/19 20:00 18 Mechanical Ventilator 30 07/06/19 20:00 98.3 78 19 133/76 (95) 100 07/06/19 20:00 30 07/06/19 19:30 67 18 143/80 (101) 100 07/06/19 19:30 65 18 100 30 68 18 30 07/06/19 19:00 18 Mechanical Ventilator 30 07/06/19 19:00 72 18 136/81 (99) 100 07/06/19 18:30 74 18 129/86 (100) 100 07/06/19 18:00 81 18 134/86 (102) 100 07/06/19 18:00 Mechanical Ventilator 07/06/19 17:30 86 18 147/90 (109) 100 07/06/19 17:00 86 18 30 07/06/19 17:00 91 19 148/87 (107) 100 07/06/19 17:00 Mechanical Ventilator 07/06/19 16:30 88 20 103/67 (79) 100 07/06/19 16:00 Mechanical Ventilator 07/06/19 16:00 98.9 90 21 100/67 (78) 100 07/06/19 16:00 Mechanical Ventilator 07/06/19 16:00 30 07/06/19 16:00 92 07/06/19 15:30 94 24 111/66 (81) 100 07/06/19 15:04 73 20 100 Mechanical Ventilator 30 82 21 30 07/06/19 15:00 70 20 105/73 (84) 100 07/06/19 15:00 Mechanical Ventilator 07/06/19 14:45 77 18 89/64 (72) 100 07/06/19 14:30 78 18 91/65 (74) 100 I&O Intake and Output 07/06/19 07/07/19 19:00 07:00 Intake Total 791 ml 45 ml Output Total 880 ml 1000 ml Balance -89 ml -955 ml Intake IV Total 791 ml 45 ml Output Urine Total 880 ml 1000 ml Dressing: saturated Wound: other Drains: other Cardiovascular: RSR Respiratory: clear Abdomen: soft, present bowel sounds, non-distended Extremities: no cyanosis Laboratory Tests Test 07/07/19 07:00 07/07/19 09:14 Sodium Level 141 MMOL/L (136-145) Potassium Level 3.9 MMOL/L (3.5-5.1) Chloride Level 112 MMOL/L (98-107) H Carbon Dioxide Level 18 MMOL/L (21-32) L Anion Gap 11 mmol/L (5-15) Blood Urea Nitrogen 18 mg/dL (7-18) Creatinine 1.5 MG/DL (0.55-1.30) H Estimat Glomerular Filtration Rate 42.9 mL/min (>60) Glucose Level 104 MG/DL (74-106) Calcium Level 8.1 MG/DL (8.5-10.1) L Phosphorus Level 3.7 MG/DL (2.5-4.9) Magnesium Level 1.3 MG/DL (1.8-2.4) L Total Creatine Kinase 93 U/L (26-308) White Blood Count 15.3 K/UL (4.8-10.8) H Red Blood Count 2.78 M/UL (4.20-5.40) L Hemoglobin 8.6 G/DL (12.0-16.0) L Hematocrit 26.3 % (37.0-47.0) L Mean Corpuscular Volume 95 FL (80-99) Mean Corpuscular Hemoglobin 30.9 PG (27.0-31.0) Mean Corpuscular Hemoglobin Concent 32.7 G/DL (32.0-36.0) Red Cell Distribution Width 15.1 % (11.6-14.8) H Platelet Count 184 K/UL (150-450) Mean Platelet Volume 8.7 FL (6.5-10.1) Neutrophils (%) (Auto) 80.9 % (45.0-75.0) H Lymphocytes (%) (Auto) 7.7 % (20.0-45.0) L Monocytes (%) (Auto) 9.9 % (1.0-10.0) Eosinophils (%) (Auto) 0.7 % (0.0-3.0) Basophils (%) (Auto) 0.8 % (0.0-2.0) Plan Problems: (1) Angioedema Assessment & Plan: airway trach as per reports trach stable currently sutures in place dressings changed HD line in place and noted back o vent wean will follow with recs thank you (2) Tracheostomy hemorrhage Assessment & Plan: stable dressings dry will monitor cont off vent as tolerated (3) Tracheostomy complication Assessment & Plan: if continues to have leak of mucus with cough and possible infection of trach site may need revision George Cavazos Jul 07, 2019 14:12
--- NOTE | 2019-07-07 15:55 | General Progress Note ---
Assessment/Plan Status: stable, progressing Assessment/Plan: Assessment - Angioedema, s/p emergency trach - abnormal LFT, ? Rhabdo related - improving - borderline CBD dilation on U/S - abnormal Lipase, ? 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 patient agreed to [place] NJT -- placed and confirmed position Objective Last 24 Hour Vital Signs Date Time Temp Pulse Resp B/P (MAP) Pulse Ox O2 Delivery O2 Flow Rate FiO2 07/07/19 15:07 82 18 100 Mechanical Ventilator 30 86 18 07/07/19 15:00 19 Mechanical Ventilator 30 07/07/19 14:00 83 18 160/92 (114) 100 07/07/19 14:00 20 Mechanical Ventilator 07/07/19 13:45 79 18 161/94 (116) 100 07/07/19 13:30 84 18 163/92 (115) 100 07/07/19 13:30 16 Mechanical Ventilator 07/07/19 13:15 87 18 158/91 (113) 100 07/07/19 13:06 78 19 30 07/07/19 13:00 90 18 162/91 (114) 100 07/07/19 13:00 18 Mechanical Ventilator 07/07/19 12:45 97 21 166/115 (132) 100 07/07/19 12:30 106 22 149/98 (115) 100 07/07/19 12:30 18 Mechanical Ventilator 07/07/19 12:15 95 24 165/104 (124) 100 07/07/19 12:00 30 07/07/19 12:00 Mechanical Ventilator 07/07/19 12:00 22 Mechanical Ventilator 07/07/19 12:00 96 22 152/93 (112) 100 07/07/19 11:48 154/94 07/07/19 11:30 18 Mechanical Ventilator 30 07/07/19 11:30 94 22 163/99 (120) 100 07/07/19 11:18 91 23 30 07/07/19 11:00 89 22 150/94 (112) 100 07/07/19 11:00 22 Mechanical Ventilator 30 07/07/19 10:30 98 21 155/95 (115) 100 07/07/19 10:00 96 19 153/94 (113) 100 07/07/19 10:00 19 Mechanical Ventilator 30 07/07/19 09:30 100 25 160/113 (129) 100 07/07/19 09:20 99 07/07/19 09:00 25 Mechanical Ventilator 30 07/07/19 09:00 115 25 166/97 (120) 100 07/07/19 08:54 85 27 30 07/07/19 08:30 89 23 188/95 (126) 100 07/07/19 08:15 88 21 148/89 (108) 100 07/07/19 08:00 22 Mechanical Ventilator 30 07/07/19 08:00 30 07/07/19 08:00 Mechanical Ventilator 07/07/19 08:00 87 22 144/88 (106) 100 07/07/19 07:45 89 22 144/86 (105) 100 07/07/19 07:30 87 21 146/89 (108) 100 07/07/19 07:30 23 Mechanical Ventilator 30 07/07/19 07:20 89 24 100 Mechanical Ventilator 30 07/07/19 07:15 96 24 30 07/07/19 07:00 98 24 147/95 (112) 98 07/07/19 07:00 23 Mechanical Ventilator 30 07/07/19 06:30 101 23 151/91 (111) 100 07/07/19 06:00 18 Mechanical Ventilator 30 07/07/19 06:00 83 20 153/91 (111) 100 07/07/19 05:30 84 20 149/89 (109) 100 07/07/19 05:00 91 21 147/82 (103) 100 07/07/19 05:00 18 Mechanical Ventilator 30 07/07/19 04:45 93 19 138/71 (93) 100 07/07/19 04:41 89 22 30 07/07/19 04:30 94 20 147/92 (110) 100 07/07/19 04:15 90 19 147/90 (109) 100 07/07/19 04:00 30 07/07/19 04:00 Mechanical Ventilator 07/07/19 04:00 18 Mechanical Ventilator 30 07/07/19 04:00 95 07/07/19 04:00 98.5 92 29 152/87 (108) 100 07/07/19 03:30 93 20 162/97 (118) 100 07/07/19 03:11 98 22 100 30 100 20 30 07/07/19 03:00 98 22 155/99 (117) 100 07/07/19 03:00 18 Mechanical Ventilator 07/07/19 02:30 93 20 152/91 (111) 100 07/07/19 02:00 92 19 154/90 (111) 100 07/07/19 02:00 18 Non-Rebreather 30 07/07/19 01:30 108 23 176/117 (136) 100 07/07/19 01:10 106 19 30 07/07/19 01:00 18 Mechanical Ventilator 07/07/19 01:00 92 21 155/86 (109) 100 07/07/19 00:45 90 18 139/80 (99) 100 07/07/19 00:30 81 21 134/78 (96) 100 07/07/19 00:15 94 21 139/81 (100) 100 07/07/19 00:00 Mechanical Ventilator 07/07/19 00:00 75 07/07/19 00:00 98.7 89 20 140/80 (100) 100 07/07/19 00:00 18 Mechanical Ventilator 07/07/19 00:00 30 07/06/19 23:30 78 18 140/103 (115) 100 07/06/19 23:20 78 20 100 30 82 18 30 07/06/19 23:00 18 Mechanical Ventilator 30 07/06/19 23:00 80 21 137/80 (99) 100 07/06/19 22:30 85 23 135/83 (100) 100 07/06/19 22:00 18 Mechanical Ventilator 30 07/06/19 22:00 81 19 134/78 (96) 100 07/06/19 21:30 77 18 141/83 (102) 100 07/06/19 21:17 80 18 30 07/06/19 21:00 79 21 136/82 (100) 100 07/06/19 21:00 18 Mechanical Ventilator 30 07/06/19 20:30 81 20 136/84 (101) 100 07/06/19 20:00 Mechanical Ventilator 07/06/19 20:00 74 07/06/19 20:00 18 Mechanical Ventilator 30 07/06/19 20:00 98.3 78 19 133/76 (95) 100 07/06/19 20:00 30 07/06/19 19:30 67 18 143/80 (101) 100 07/06/19 19:30 65 18 100 30 68 18 30 07/06/19 19:00 18 Mechanical Ventilator 30 07/06/19 19:00 72 18 136/81 (99) 100 07/06/19 18:30 74 18 129/86 (100) 100 07/06/19 18:00 81 18 134/86 (102) 100 07/06/19 18:00 Mechanical Ventilator 07/06/19 17:30 86 18 147/90 (109) 100 07/06/19 17:00 86 18 30 07/06/19 17:00 91 19 148/87 (107) 100 07/06/19 17:00 Mechanical Ventilator 07/06/19 16:30 88 20 103/67 (79) 100 07/06/19 16:00 Mechanical Ventilator 07/06/19 16:00 98.9 90 21 100/67 (78) 100 07/06/19 16:00 Mechanical Ventilator 07/06/19 16:00 30 07/06/19 16:00 92 Intake and Output 07/06/19 07/07/19 18:59 06:59 Intake Total 806 ml 50 ml Output Total 885 ml 975 ml Balance -79 ml -925 ml Intake IV Total 806 ml 50 ml Output Urine Total 885 ml 975 ml Laboratory Tests 07/07/19 07:00: Sodium Level 141, Potassium Level 3.9, Chloride Level 112H, Carbon Dioxide Level 18L, Anion Gap 11, Blood Urea Nitrogen 18, Creatinine 1.5H, Estimat Glomerular Filtration Rate 42.9, Glucose Level 104, Calcium Level 8.1L, Phosphorus Level 3.7, Magnesium Level 1.3L, Total Creatine Kinase 93 07/07/19 09:14: White Blood Count 15.3H, Red Blood Count 2.78L, Hemoglobin 8.6L, Hematocrit 26.3L, Mean Corpuscular Volume 95, Mean Corpuscular Hemoglobin 30.9, Mean Corpuscular Hemoglobin Concent 32.7, Red Cell Distribution Width 15.1H, Platelet Count 184, Mean Platelet Volume 8.7, Neutrophils (%) (Auto) 80.9H, Lymphocytes (%) (Auto) 7.7L, Monocytes (%) (Auto) 9.9, Eosinophils (%) (Auto) 0.7, Basophils (%) (Auto) 0.8 Height (Feet): 5 Height (Inches): 4.00 Weight (Pounds): 170 Objective WDWN AA woman NCAT (+) trach Coarse BS RR abd soft no edema Elisabeth Sommers MD Jul 07, 2019 15:55
[2019-07-07] MEDS: EPINEPHrine 1mg/1ml Amp 1 MG in D5W 249 ML IV SCH (16:00)
[2019-07-07] MEDS ORDERED: Tubing IV Secondary IV ONE (17:51)
[2019-07-07] MEDS: fentaNYL Citrate 2,500 MCG in NS 200 ML IV SCH (18:23)
[2019-07-07] MEDS: Dyna-Hex 2% Top Sol 2oz TOPIC SCH (20:41)
[2019-07-08] VITALS (48 sets, daily range): BP systolic 101–158; BP diastolic 43–100
[2019-07-08] MEDS: Albuterol/Ipratropium 3ml neb HHN SCH ×6 (03:16→23:07)
[2019-07-08] MEDS: fentaNYL Citrate 2,500 MCG in NS 200 ML IV SCH ×2 (04:34→17:59)
[2019-07-08 05:20] LABS: BASOPHILS % (AUTO) 0.6 % (0.0-2.0); EOSINOPHILS % (AUTO) 0.4 % (0.0-3.0); HEMATOCRIT 26.4 % (37.0-47.0); HEMOGLOBIN 8.6 G/DL (12.0-16.0); LYMPHOCYTES % (AUTO) 8.3 % (20.0-45.0); MEAN CORPUSCULAR VOLUME 96 FL (80-99); MONOCYTES % (AUTO) 9.6 % (1.0-10.0); NEUTROPHILS % (AUTO) 81.1 % (45.0-75.0); PLATELET COUNT 207 K/UL (150-450); RED BLOOD COUNT 2.76 M/UL (4.20-5.40); RED CELL DISTRIBUTION WIDTH 15.4 % (11.6-14.8); WHITE BLOOD COUNT 13.1 K/UL (4.8-10.8)
[2019-07-08 05:43] LABS: ALANINE AMINOTRANSFERASE 86 U/L (12-78); ALBUMIN 2.1 G/DL (3.4-5.0); ALBUMIN/GLOBULIN RATIO 0.6 (1.0-2.7); ALKALINE PHOSPHATASE 56 U/L (46-116); ANION GAP 11 mmol/L (5-15); ASPARTATE AMINO TRANSFERASE 17 U/L (15-37); BILIRUBIN,TOTAL 0.5 MG/DL (0.2-1.0); BLOOD UREA NITROGEN 16 mg/dL (7-18); CARBON DIOXIDE 19 MMOL/L (21-32); CHLORIDE 110 MMOL/L (98-107); CREATININE 1.5 MG/DL (0.55-1.30); POTASSIUM 4.2 MMOL/L (3.5-5.1); SODIUM 140 MMOL/L (136-145)
[2019-07-08] MEDS: NovoLOG Insulin Flexpen SUBQ SCH ×4 (06:13→21:00)
--- NOTE | 2019-07-08 06:48 | General Progress Note ---
Assessment/Plan Status: stable, progressing Assessment/Plan: Assessment - dark stools, possibly due to trach site bleeding - Angioedema, s/p emergency trach - abnormal LFT, ? Rhabdo related - improving - borderline CBD dilation on U/S - abnormal Lipase, ? 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 some dark/maroon stools noted by RN Objective Last 24 Hour Vital Signs Date Time Temp Pulse Resp B/P (MAP) Pulse Ox O2 Delivery O2 Flow Rate FiO2 07/08/19 06:00 99 18 110/50 (70) 100 07/08/19 06:00 18 Mechanical Ventilator 07/08/19 05:27 68 18 Mechanical Ventilator 30 07/08/19 05:00 102 18 114/43 (66) 100 07/08/19 05:00 18 Mechanical Ventilator 07/08/19 04:34 18 Mechanical Ventilator 07/08/19 04:00 30 07/08/19 04:00 18 Mechanical Ventilator 07/08/19 04:00 Mechanical Ventilator 07/08/19 04:00 94 18 135/57 (83) 100 07/08/19 04:00 77 07/08/19 03:17 94 21 100 Mechanical Ventilator 30 86 19 30 07/08/19 03:00 97 18 101/51 (68) 100 07/08/19 03:00 18 Mechanical Ventilator 07/08/19 02:00 18 Mechanical Ventilator 07/08/19 02:00 107 18 105/48 (67) 100 07/08/19 01:00 76 18 141/73 (95) 100 07/08/19 01:00 16 Mechanical Ventilator 07/08/19 01:00 80 20 Mechanical Ventilator 30 07/08/19 00:00 80 18 140/70 (93) 100 07/08/19 00:00 Mechanical Ventilator 07/08/19 00:00 16 Mechanical Ventilator 07/08/19 00:00 30 07/08/19 00:00 65 07/07/19 23:17 85 19 100 Mechanical Ventilator 30 86 18 30 07/07/19 23:00 16 Mechanical Ventilator 07/07/19 23:00 80 18 144/80 (101) 100 07/07/19 22:30 78 18 145/88 (107) 100 07/07/19 22:00 18 Mechanical Ventilator 07/07/19 22:00 89 18 149/88 (108) 100 07/07/19 21:30 80 18 154/90 (111) 100 07/07/19 21:00 74 18 30 07/07/19 21:00 80 18 148/88 (108) 100 07/07/19 21:00 18 Mechanical Ventilator 07/07/19 20:30 80 18 150/97 (114) 100 07/07/19 20:00 84 07/07/19 20:00 Mechanical Ventilator 07/07/19 20:00 30 07/07/19 20:00 18 Mechanical Ventilator 07/07/19 20:00 80 18 164/97 (119) 100 07/07/19 19:32 80 20 100 Mechanical Ventilator 30 84 20 30 07/07/19 19:30 98.8 80 18 168/95 (119) 100 07/07/19 19:00 19 Mechanical Ventilator 30 07/07/19 19:00 78 18 152/99 (116) 100 07/07/19 18:30 78 18 166/97 (120) 100 07/07/19 18:23 19 Mechanical Ventilator 30 07/07/19 18:00 19 Mechanical Ventilator 30 07/07/19 18:00 74 18 159/97 (117) 100 07/07/19 17:30 19 Mechanical Ventilator 30 07/07/19 17:30 75 19 154/94 (114) 100 07/07/19 17:15 19 Mechanical Ventilator 30 07/07/19 17:00 78 18 149/93 (111) 100 07/07/19 17:00 19 Mechanical Ventilator 30 07/07/19 16:54 89 22 30 07/07/19 16:45 19 Mechanical Ventilator 30 07/07/19 16:30 98.6 82 19 150/95 (113) 100 07/07/19 16:30 24 Mechanical Ventilator 70 07/07/19 16:00 81 18 144/88 (106) 100 07/07/19 16:00 79 07/07/19 16:00 20 Mechanical Ventilator 30 07/07/19 16:00 30 07/07/19 16:00 Mechanical Ventilator 07/07/19 15:45 83 19 154/99 (117) 100 07/07/19 15:30 97 23 167/98 (121) 99 07/07/19 15:15 83 19 158/96 (116) 100 07/07/19 15:07 82 18 100 Mechanical Ventilator 30 86 18 07/07/19 15:00 19 Mechanical Ventilator 30 07/07/19 15:00 83 18 156/100 (118) 100 07/07/19 14:45 85 19 154/97 (116) 100 07/07/19 14:30 84 20 161/100 (120) 100 07/07/19 14:00 83 18 160/92 (114) 100 07/07/19 14:00 20 Mechanical Ventilator 30 07/07/19 13:45 79 18 161/94 (116) 100 07/07/19 13:30 84 18 163/92 (115) 100 07/07/19 13:30 16 Mechanical Ventilator 30 07/07/19 13:15 87 18 158/91 (113) 100 07/07/19 13:06 78 19 30 07/07/19 13:00 90 18 162/91 (114) 100 07/07/19 13:00 18 Mechanical Ventilator 30 07/07/19 12:45 97 21 166/115 (132) 100 07/07/19 12:30 106 22 149/98 (115) 100 07/07/19 12:30 18 Mechanical Ventilator 30 07/07/19 12:15 95 24 165/104 (124) 100 07/07/19 12:00 30 07/07/19 12:00 98.6 96 22 152/93 (112) 100 07/07/19 12:00 100 07/07/19 12:00 Mechanical Ventilator 07/07/19 12:00 22 Mechanical Ventilator 30 07/07/19 12:00 96 22 152/93 (112) 100 07/07/19 11:48 154/94 07/07/19 11:30 18 Mechanical Ventilator 30 07/07/19 11:30 94 22 163/99 (120) 100 07/07/19 11:18 91 23 30 07/07/19 11:00 89 22 150/94 (112) 100 07/07/19 11:00 22 Mechanical Ventilator 30 07/07/19 10:30 98 21 155/95 (115) 100 07/07/19 10:00 96 19 153/94 (113) 100 07/07/19 10:00 19 Mechanical Ventilator 30 07/07/19 09:30 100 25 160/113 (129) 100 07/07/19 09:20 99 07/07/19 09:00 25 Mechanical Ventilator 30 07/07/19 09:00 115 25 166/97 (120) 100 07/07/19 08:54 85 27 30 07/07/19 08:30 89 23 188/95 (126) 100 07/07/19 08:15 88 21 148/89 (108) 100 07/07/19 08:00 22 Mechanical Ventilator 30 07/07/19 08:00 30 07/07/19 08:00 Mechanical Ventilator 07/07/19 08:00 87 22 144/88 (106) 100 07/07/19 08:00 85 07/07/19 07:45 89 22 144/86 (105) 100 07/07/19 07:30 87 21 146/89 (108) 100 07/07/19 07:30 23 Mechanical Ventilator 30 07/07/19 07:20 89 24 100 Mechanical Ventilator 30 07/07/19 07:15 96 24 30 07/07/19 07:00 98 24 147/95 (112) 98 07/07/19 07:00 23 Mechanical Ventilator 30 Intake and Output 07/07/19 07/08/19 19:00 07:00 Intake Total 1262.75 ml 1592.5 ml Output Total 2500 ml 1600 ml Balance -1237.25 ml -7.5 ml Intake IV Total 1262.75 ml 1382.5 ml Tube Feeding 210 ml Output Urine Total 2500 ml 1600 ml Laboratory Tests 07/07/19 07:00: Sodium Level 141, Potassium Level 3.9, Chloride Level 112H, Carbon Dioxide Level 18L, Anion Gap 11, Blood Urea Nitrogen 18, Creatinine 1.5H, Estimat Glomerular Filtration Rate 42.9, Glucose Level 104, Calcium Level 8.1L, Phosphorus Level 3.7, Magnesium Level 1.3L, Total Creatine Kinase 93 07/07/19 09:14: White Blood Count 15.3H, Red Blood Count 2.78L, Hemoglobin 8.6L, Hematocrit 26.3L, Mean Corpuscular Volume 95, Mean Corpuscular Hemoglobin 30.9, Mean Corpuscular Hemoglobin Concent 32.7, Red Cell Distribution Width 15.1H, Platelet Count 184, Mean Platelet Volume 8.7, Neutrophils (%) (Auto) 80.9H, Lymphocytes (%) (Auto) 7.7L, Monocytes (%) (Auto) 9.9, Eosinophils (%) (Auto) 0.7, Basophils (%) (Auto) 0.8 07/08/19 04:00: Sodium Level 140, Potassium Level 4.2, Chloride Level 110H, Carbon Dioxide Level 19L, Anion Gap 11, Blood Urea Nitrogen 16, Creatinine 1.5H, Estimat Glomerular Filtration Rate 42.9, Glucose Level 100, Calcium Level 8.0L, White Blood Count 13.1H, Red Blood Count 2.76L, Hemoglobin 8.6L, Hematocrit 26.4L, Mean Corpuscular Volume 96, Mean Corpuscular Hemoglobin 31.0, Mean Corpuscular Hemoglobin Concent 32.4, Red Cell Distribution Width 15.4H, Platelet Count 207, Mean Platelet Volume 8.2, Neutrophils (%) (Auto) 81.1H, Lymphocytes (%) (Auto) 8.3L, Monocytes (%) (Auto) 9.6, Eosinophils (%) (Auto) 0.4, Basophils (%) (Auto ) 0.6, Total Bilirubin 0.5, Aspartate Amino Transf (AST/SGOT) 17, Alanine Aminotransferase (ALT/SGPT) 86H, Alkaline Phosphatase 56, Total Protein 5.8L, Albumin 2.1L, Globulin 3.7, Albumin/Globulin Ratio 0.6L Height (Feet): 5 Height (Inches): 4.00 Weight (Pounds): 168 Objective WDWN AA woman NCAT (+) NGT (+) trach Coarse BS RR abd soft no edema Elisabeth Sommers MD Jul 08, 2019 06:48
[2019-07-08] MEDS: Magnesium Oxide 400mg tab NG SCH ×3 (08:22→17:03)
[2019-07-08] MEDS: Solu-MEDROL 40mg Inj IVP SCH (08:22)
[2019-07-08] MEDS: Atovaquone 750mg/5ml Susp NG SCH (08:23)
--- NOTE | 2019-07-08 08:35 | Critical Care Progress Note ---
Assessment/Plan Assessment/Plan Angioedema Severe Hypotension Previous Hypertension Cocaine abuse s/p emergent trach Anemia secondary to blood loss acute respiratory failure leukocytosis, possible steroid related thrombocytopenia renal failure, acute on chronic toxic metabolic encephalopathy HIV+ PLAN post op care iv steroids to off heme, renal evaluation noted and reviewed ID follow up vent support ---not weaning on trach care ? subacute; needs GT nutrition needed monitor for bleeding ICU care support as able nutrition GI following monitor hemodynamics medications/laboratory data/nursing notes/ICU care reviewed in detail note reviewed and edited care discussed with RN and RT ICU time spent 40 minutes Critical Care - Subjective Interval Events: 72 hour care reviewed and discussed in ICU on vent and trach still on full support ROS Limited/Unobtainable: Yes Condition: critical EKG Rhythm: Sinus Rhythm I&O: Intake and Output 07/07/19 07/08/19 19:00 07:00 Intake Total 1262.75 ml 1752.5 ml Output Total 2500 ml 1750 ml Balance -1237.25 ml 2.5 ml Intake IV Total 1262.75 ml 1492.5 ml Tube Feeding 260 ml Output Urine Total 2500 ml 1750 ml Critical Care - Objective Last 24 Hour Vital Signs Date Time Temp Pulse Resp B/P (MAP) Pulse Ox O2 Delivery O2 Flow Rate FiO2 07/08/19 07:30 75 23 114/79 (91) 98 07/08/19 07:20 78 24 30 30 07/08/19 07:00 18 Mechanical Ventilator 07/08/19 07:00 66 18 123/82 (96) 100 07/08/19 06:30 77 18 129/85 (100) 100 07/08/19 06:00 99 18 110/50 (70) 100 07/08/19 06:00 18 Mechanical Ventilator 07/08/19 05:30 76 18 137/90 (106) 100 07/08/19 05:27 68 18 Mechanical Ventilator 30 07/08/19 05:00 102 18 114/43 (66) 100 07/08/19 05:00 18 Mechanical Ventilator 07/08/19 04:34 18 Mechanical Ventilator 07/08/19 04:30 75 18 110/72 (85) 100 07/08/19 04:00 30 07/08/19 04:00 18 Mechanical Ventilator 07/08/19 04:00 Mechanical Ventilator 07/08/19 04:00 94 18 135/57 (83) 100 07/08/19 04:00 77 07/08/19 03:30 81 18 141/88 (105) 100 07/08/19 03:17 94 21 100 Mechanical Ventilator 30 86 19 30 07/08/19 03:00 97 18 101/51 (68) 100 07/08/19 03:00 18 Mechanical Ventilator 07/08/19 02:30 67 18 137/80 (99) 100 07/08/19 02:00 18 Mechanical Ventilator 07/08/19 02:00 107 18 105/48 (67) 100 07/08/19 01:30 70 18 126/78 (94) 100 07/08/19 01:00 76 18 141/73 (95) 100 07/08/19 01:00 16 Mechanical Ventilator 07/08/19 01:00 80 20 Mechanical Ventilator 30 07/08/19 00:30 71 18 118/75 (89) 100 07/08/19 00:00 80 18 140/70 (93) 100 07/08/19 00:00 Mechanical Ventilator 07/08/19 00:00 16 Mechanical Ventilator 07/08/19 00:00 30 07/08/19 00:00 65 07/07/19 23:30 68 18 144/82 (102) 100 07/07/19 23:17 85 19 100 Mechanical Ventilator 30 86 18 30 07/07/19 23:00 16 Mechanical Ventilator 07/07/19 23:00 80 18 144/80 (101) 100 07/07/19 22:30 78 18 145/88 (107) 100 07/07/19 22:00 18 Mechanical Ventilator 07/07/19 22:00 89 18 149/88 (108) 100 07/07/19 21:30 80 18 154/90 (111) 100 07/07/19 21:00 74 18 30 07/07/19 21:00 80 18 148/88 (108) 100 07/07/19 21:00 18 Mechanical Ventilator 07/07/19 20:30 80 18 150/97 (114) 100 07/07/19 20:00 84 07/07/19 20:00 Mechanical Ventilator 07/07/19 20:00 30 07/07/19 20:00 18 Mechanical Ventilator 07/07/19 20:00 80 18 164/97 (119) 100 07/07/19 19:32 80 20 100 Mechanical Ventilator 30 84 20 30 07/07/19 19:30 98.8 80 18 168/95 (119) 100 07/07/19 19:00 19 Mechanical Ventilator 30 07/07/19 19:00 78 18 152/99 (116) 100 07/07/19 18:30 78 18 166/97 (120) 100 07/07/19 18:23 19 Mechanical Ventilator 30 07/07/19 18:00 19 Mechanical Ventilator 30 07/07/19 18:00 74 18 159/97 (117) 100 07/07/19 17:30 19 Mechanical Ventilator 30 07/07/19 17:30 75 19 154/94 (114) 100 07/07/19 17:15 19 Mechanical Ventilator 30 07/07/19 17:00 78 18 149/93 (111) 100 07/07/19 17:00 19 Mechanical Ventilator 30 07/07/19 16:54 89 22 30 07/07/19 16:45 19 Mechanical Ventilator 30 07/07/19 16:30 98.6 82 19 150/95 (113) 100 07/07/19 16:30 24 Mechanical Ventilator 70 07/07/19 16:00 81 18 144/88 (106) 100 07/07/19 16:00 79 07/07/19 16:00 20 Mechanical Ventilator 30 07/07/19 16:00 30 07/07/19 16:00 Mechanical Ventilator 07/07/19 15:45 83 19 154/99 (117) 100 07/07/19 15:30 97 23 167/98 (121) 99 07/07/19 15:15 83 19 158/96 (116) 100 07/07/19 15:07 82 18 100 Mechanical Ventilator 30 86 18 07/07/19 15:00 19 Mechanical Ventilator 30 07/07/19 15:00 83 18 156/100 (118) 100 07/07/19 14:45 85 19 154/97 (116) 100 07/07/19 14:30 84 20 161/100 (120) 100 07/07/19 14:00 83 18 160/92 (114) 100 07/07/19 14:00 20 Mechanical Ventilator 30 07/07/19 13:45 79 18 161/94 (116) 100 07/07/19 13:30 84 18 163/92 (115) 100 07/07/19 13:30 16 Mechanical Ventilator 30 07/07/19 13:15 87 18 158/91 (113) 100 07/07/19 13:06 78 19 30 07/07/19 13:00 90 18 162/91 (114) 100 07/07/19 13:00 18 Mechanical Ventilator 30 07/07/19 12:45 97 21 166/115 (132) 100 07/07/19 12:30 106 22 149/98 (115) 100 07/07/19 12:30 18 Mechanical Ventilator 30 07/07/19 12:15 95 24 165/104 (124) 100 07/07/19 12:00 30 07/07/19 12:00 98.6 96 22 152/93 (112) 100 07/07/19 12:00 100 07/07/19 12:00 Mechanical Ventilator 07/07/19 12:00 22 Mechanical Ventilator 30 07/07/19 12:00 96 22 152/93 (112) 100 07/07/19 11:48 154/94 07/07/19 11:30 18 Mechanical Ventilator 30 07/07/19 11:30 94 22 163/99 (120) 100 07/07/19 11:18 91 23 30 07/07/19 11:00 89 22 150/94 (112) 100 07/07/19 11:00 22 Mechanical Ventilator 30 07/07/19 10:30 98 21 155/95 (115) 100 07/07/19 10:00 96 19 153/94 (113) 100 07/07/19 10:00 19 Mechanical Ventilator 30 07/07/19 09:30 100 25 160/113 (129) 100 07/07/19 09:20 99 07/07/19 09:00 25 Mechanical Ventilator 30 07/07/19 09:00 115 25 166/97 (120) 100 07/07/19 08:54 85 27 30 Labs: Labs Test 07/06/19 06:20 07/07/19 07:00 07/07/19 09:14 07/08/19 04:00 White Blood Count 14.6 K/UL (4.8-10.8) 15.3 K/UL (4.8-10.8) 13.1 K/UL (4.8-10.8) Red Blood Count 2.68 M/UL (4.20-5.40) 2.78 M/UL (4.20-5.40) 2.76 M/UL (4.20-5.40) Hemoglobin 8.5 G/DL (12.0-16.0) 8.6 G/DL (12.0-16.0) 8.6 G/DL (12.0-16.0) Hematocrit 25.4 % (37.0-47.0) 26.3 % (37.0-47.0) 26.4 % (37.0-47.0) Mean Corpuscular Volume 95 FL (80-99) 95 FL (80-99) 96 FL (80-99) Mean Corpuscular Hemoglobin 31.5 PG (27.0-31.0) 30.9 PG (27.0-31.0) 31.0 PG (27.0-31.0) Mean Corpuscular Hemoglobin Concent 33.3 G/DL (32.0-36.0) 32.7 G/DL (32.0-36.0) 32.4 G/DL (32.0-36.0) Red Cell Distribution Width 15.7 % (11.6-14.8) 15.1 % (11.6-14.8) 15.4 % (11.6-14.8) Platelet Count 131 K/UL (150-450) 184 K/UL (150-450) 207 K/UL (150-450) Mean Platelet Volume 8.4 FL (6.5-10.1) 8.7 FL (6.5-10.1) 8.2 FL (6.5-10.1) Neutrophils (%) (Auto) 81.6 % (45.0-75.0) 80.9 % (45.0-75.0) 81.1 % (45.0-75.0) Lymphocytes (%) (Auto) 7.4 % (20.0-45.0) 7.7 % (20.0-45.0) 8.3 % (20.0-45.0) Monocytes (%) (Auto) 8.6 % (1.0-10.0) 9.9 % (1.0-10.0) 9.6 % (1.0-10.0) Eosinophils (%) (Auto) 0.8 % (0.0-3.0) 0.7 % (0.0-3.0) 0.4 % (0.0-3.0) Basophils (%) (Auto) 1.5 % (0.0-2.0) 0.8 % (0.0-2.0) 0.6 % (0.0-2.0) Sodium Level 141 MMOL/L (136-145) 141 MMOL/L (136-145) 140 MMOL/L (136-145) Potassium Level 3.3 MMOL/L (3.5-5.1) 3.9 MMOL/L (3.5-5.1) 4.2 MMOL/L (3.5-5.1) Chloride Level 112 MMOL/L (98-107) 112 MMOL/L (98-107) 110 MMOL/L (98-107) Carbon Dioxide Level 20 MMOL/L (21-32) 18 MMOL/L (21-32) 19 MMOL/L (21-32) Anion Gap 9 mmol/L (5-15) 11 mmol/L (5-15) 11 mmol/L (5-15) Blood Urea Nitrogen 25 mg/dL (7-18) 18 mg/dL (7-18) 16 mg/dL (7-18) Creatinine 1.8 MG/DL (0.55-1.30) 1.5 MG/DL (0.55-1.30) 1.5 MG/DL (0.55-1.30) Estimat Glomerular Filtration Rate 34.8 mL/min (>60) 42.9 mL/min (>60) 42.9 mL/min (>60) Glucose Level 113 MG/DL (74-106) 104 MG/DL (74-106) 100 MG/DL (74-106) Calcium Level 7.7 MG/DL (8.5-10.1) 8.1 MG/DL (8.5-10.1) 8.0 MG/DL (8.5-10.1) Total Bilirubin 0.5 MG/DL (0.2-1.0) 0.5 MG/DL (0.2-1.0) Aspartate Amino Transf (AST/SGOT) 26 U/L (15-37) 17 U/L (15-37) Alanine Aminotransferase (ALT/SGPT) 122 U/L (12-78) 86 U/L (12-78) Alkaline Phosphatase 49 U/L (46-116) 56 U/L (46-116) Total Protein 5.2 G/DL (6.4-8.2) 5.8 G/DL (6.4-8.2) Albumin 2.0 G/DL (3.4-5.0) 2.1 G/DL (3.4-5.0) Globulin 3.2 g/dL 3.7 g/dL Albumin/Globulin Ratio 0.6 (1.0-2.7) 0.6 (1.0-2.7) Phosphorus Level 3.7 MG/DL (2.5-4.9) Magnesium Level 1.3 MG/DL (1.8-2.4) Total Creatine Kinase 93 U/L (26-308) Objective: WDWN on trach and vent reduced LOC reduced breath sounds bilaterally without rhonchi or wheeze [id number] without MRG NABS nontender no HSM no CCE nonfocal and alert NABS nontender no distention; NGT reviewed and edited Accucheck: 100 Radames Ray MD Jul 08, 2019 08:35
[2019-07-08] MEDS ORDERED: Lidocaine 1% Plain 30 ml INJ PRN (09:15)
[2019-07-08] MEDS ORDERED: Heparin1,000 units/500ml Premix(Conc:2 units/ml) IV PRN (09:15)
[2019-07-08] MEDS: Thiamine HCl 100 MG in D5W 55 ML IVPB SCH (09:42)
[2019-07-08] MEDS: D5 1/2NS w/KCl 30mEq 1000ml 1,000 ML IV SCH ×2 (09:47→18:30)
[2019-07-08] MEDS: Cefepime 2gm/D5W 110ml IV SCH ×2 (11:20)
--- NOTE | 2019-07-08 11:50 | Infectious Diseases Prog Note ---
Assessment/Plan Assessment/Plan A 1. leucocytosis improving 2. angioedema 3. respiratory failure s/p emergent tracheostomy 4. HIV, AIDS 5. renal failure improving 6. tracheostomy site infection P 1. repeat CXR 2. Start on PCP Prophylaxis with Mepron 3. Continue Cefepime, add IV Vancomycin Subjective ROS Limited/Unobtainable: Yes Constitutional: Denies: fever Respiratory: Reports: other - on weaning process Allergies: Coded Allergies: No Known Allergies (Unverified , 06/29/19) Objective Vital Signs Last 24 Hour Vital Signs Date Time Temp Pulse Resp B/P (MAP) Pulse Ox O2 Delivery O2 Flow Rate FiO2 07/08/19 11:34 139/96 07/08/19 11:30 79 13 139/96 (110) 100 07/08/19 11:29 80 24 100 Mechanical Ventilator 30 78 27 30 30 07/08/19 11:00 71 23 130/80 (97) 100 07/08/19 10:30 74 22 135/83 (100) 100 07/08/19 10:00 79 22 117/80 (92) 100 07/08/19 10:00 22 Mechanical Ventilator 07/08/19 09:34 100 07/08/19 09:30 73 23 131/78 (95) 100 07/08/19 09:29 74 24 30 30 07/08/19 09:00 20 Mechanical Ventilator 07/08/19 09:00 79 24 121/81 (94) 100 07/08/19 08:30 80 26 131/78 (95) 100 07/08/19 08:00 Mechanical Ventilator 07/08/19 08:00 30 07/08/19 08:00 98.2 79 24 149/99 (116) 100 07/08/19 08:00 18 Mechanical Ventilator 07/08/19 08:00 73 07/08/19 07:30 75 23 114/79 (91) 98 07/08/19 07:20 78 24 30 30 07/08/19 07:00 18 Mechanical Ventilator 07/08/19 07:00 66 18 123/82 (96) 100 07/08/19 06:30 77 18 129/85 (100) 100 07/08/19 06:00 99 18 110/50 (70) 100 07/08/19 06:00 18 Mechanical Ventilator 07/08/19 05:30 76 18 137/90 (106) 100 8/26/19 05:27 68 18 Mechanical Ventilator 30 07/08/19 05:00 102 18 114/43 (66) 100 07/08/19 05:00 18 Mechanical Ventilator 07/08/19 04:34 18 Mechanical Ventilator 07/08/19 04:30 75 18 110/72 (85) 100 07/08/19 04:00 30 07/08/19 04:00 18 Mechanical Ventilator 07/08/19 04:00 Mechanical Ventilator 07/08/19 04:00 94 18 135/57 (83) 100 07/08/19 04:00 77 07/08/19 03:30 81 18 141/88 (105) 100 07/08/19 03:17 94 21 100 Mechanical Ventilator 30 86 19 30 07/08/19 03:00 97 18 101/51 (68) 100 07/08/19 03:00 18 Mechanical Ventilator 07/08/19 02:30 67 18 137/80 (99) 100 07/08/19 02:00 18 Mechanical Ventilator 07/08/19 02:00 107 18 105/48 (67) 100 07/08/19 01:30 70 18 126/78 (94) 100 07/08/19 01:00 76 18 141/73 (95) 100 07/08/19 01:00 16 Mechanical Ventilator 07/08/19 01:00 80 20 Mechanical Ventilator 30 07/08/19 00:30 71 18 118/75 (89) 100 07/08/19 00:00 80 18 140/70 (93) 100 07/08/19 00:00 Mechanical Ventilator 07/08/19 00:00 16 Mechanical Ventilator 07/08/19 00:00 30 07/08/19 00:00 65 07/07/19 23:30 68 18 144/82 (102) 100 07/07/19 23:17 85 19 100 Mechanical Ventilator 30 86 18 30 07/07/19 23:00 16 Mechanical Ventilator 07/07/19 23:00 80 18 144/80 (101) 100 07/07/19 22:30 78 18 145/88 (107) 100 07/07/19 22:00 18 Mechanical Ventilator 07/07/19 22:00 89 18 149/88 (108) 100 07/07/19 21:30 80 18 154/90 (111) 100 8/25/19 21:00 74 18 30 07/07/19 21:00 80 18 148/88 (108) 100 07/07/19 21:00 18 Mechanical Ventilator 07/07/19 20:30 80 18 150/97 (114) 100 07/07/19 20:00 84 07/07/19 20:00 Mechanical Ventilator 07/07/19 20:00 30 07/07/19 20:00 18 Mechanical Ventilator 07/07/19 20:00 80 18 164/97 (119) 100 07/07/19 19:32 80 20 100 Mechanical Ventilator 30 84 20 30 07/07/19 19:30 98.8 80 18 168/95 (119) 100 07/07/19 19:00 19 Mechanical Ventilator 30 07/07/19 19:00 78 18 152/99 (116) 100 07/07/19 18:30 78 18 166/97 (120) 100 07/07/19 18:23 19 Mechanical Ventilator 30 07/07/19 18:00 19 Mechanical Ventilator 30 07/07/19 18:00 74 18 159/97 (117) 100 07/07/19 17:30 19 Mechanical Ventilator 30 07/07/19 17:30 75 19 154/94 (114) 100 07/07/19 17:15 19 Mechanical Ventilator 30 07/07/19 17:00 78 18 149/93 (111) 100 07/07/19 17:00 19 Mechanical Ventilator 30 07/07/19 16:54 89 22 30 07/07/19 16:45 19 Mechanical Ventilator 30 07/07/19 16:30 98.6 82 19 150/95 (113) 100 07/07/19 16:30 24 Mechanical Ventilator 70 07/07/19 16:00 81 18 144/88 (106) 100 07/07/19 16:00 79 07/07/19 16:00 20 Mechanical Ventilator 30 07/07/19 16:00 30 07/07/19 16:00 Mechanical Ventilator 07/07/19 15:45 83 19 154/99 (117) 100 07/07/19 15:30 97 23 167/98 (121) 99 07/07/19 15:15 83 19 158/96 (116) 100 07/07/19 15:07 82 18 100 Mechanical Ventilator 30 86 18 07/07/19 15:00 19 Mechanical Ventilator 30 07/07/19 15:00 83 18 156/100 (118) 100 07/07/19 14:45 85 19 154/97 (116) 100 07/07/19 14:30 84 20 161/100 (120) 100 07/07/19 14:00 83 18 160/92 (114) 100 07/07/19 14:00 20 Mechanical Ventilator 30 07/07/19 13:45 79 18 161/94 (116) 100 07/07/19 13:30 84 18 163/92 (115) 100 07/07/19 13:30 16 Mechanical Ventilator 30 07/07/19 13:15 87 18 158/91 (113) 100 07/07/19 13:06 78 19 30 07/07/19 13:00 90 18 162/91 (114) 100 07/07/19 13:00 18 Mechanical Ventilator 30 07/07/19 12:45 97 21 166/115 (132) 100 07/07/19 12:30 106 22 149/98 (115) 100 07/07/19 12:30 18 Mechanical Ventilator 30 07/07/19 12:15 95 24 165/104 (124) 100 07/07/19 12:00 30 07/07/19 12:00 98.6 96 22 152/93 (112) 100 07/07/19 12:00 100 07/07/19 12:00 Mechanical Ventilator 07/07/19 12:00 22 Mechanical Ventilator 30 07/07/19 12:00 96 22 152/93 (112) 100 07/07/19 11:48 154/94 Height (Feet): 5 Height (Inches): 4.00 Weight (Pounds): 168 General Appearance: no acute distress HEENT: other - s/p tracheostomy, secretions around tracheostomy site Respiratory/Chest: lungs clear Cardiovascular: normal rate Abdomen: soft, non tender, other - s/p GT Extremities: no edema Neurologic/Psychiatric: alert, responsive Microbiology Date/Time Source Procedure Growth Status 07/07/19 04:00 Trachea Drainage Gram Stain Pending Resulted 07/07/19 04:00 Wound Culture - Preliminary Staphylococcus Aureus Gram Negative Bacillus 1 Resulted Laboratory Tests Test 07/08/19 04:00 White Blood Count 13.1 K/UL (4.8-10.8) H Red Blood Count 2.76 M/UL (4.20-5.40) L Hemoglobin 8.6 G/DL (12.0-16.0) L Hematocrit 26.4 % (37.0-47.0) L Mean Corpuscular Volume 96 FL (80-99) Mean Corpuscular Hemoglobin 31.0 PG (27.0-31.0) Mean Corpuscular Hemoglobin Concent 32.4 G/DL (32.0-36.0) Red Cell Distribution Width 15.4 % (11.6-14.8) H Platelet Count 207 K/UL (150-450) Mean Platelet Volume 8.2 FL (6.5-10.1) Neutrophils (%) (Auto) 81.1 % (45.0-75.0) H Lymphocytes (%) (Auto) 8.3 % (20.0-45.0) L Monocytes (%) (Auto) 9.6 % (1.0-10.0) Eosinophils (%) (Auto) 0.4 % (0.0-3.0) Basophils (%) (Auto) 0.6 % (0.0-2.0) Sodium Level 140 MMOL/L (136-145) Potassium Level 4.2 MMOL/L (3.5-5.1) Chloride Level 110 MMOL/L (98-107) H Carbon Dioxide Level 19 MMOL/L (21-32) L Anion Gap 11 mmol/L (5-15) Blood Urea Nitrogen 16 mg/dL (7-18) Creatinine 1.5 MG/DL (0.55-1.30) H Estimat Glomerular Filtration Rate 42.9 mL/min (>60) Glucose Level 100 MG/DL (74-106) Calcium Level 8.0 MG/DL (8.5-10.1) L Total Bilirubin 0.5 MG/DL (0.2-1.0) Aspartate Amino Transf (AST/SGOT) 17 U/L (15-37) Alanine Aminotransferase (ALT/SGPT) 86 U/L (12-78) H Alkaline Phosphatase 56 U/L (46-116) Total Protein 5.8 G/DL (6.4-8.2) L Albumin 2.1 G/DL (3.4-5.0) L Globulin 3.7 g/dL Albumin/Globulin Ratio 0.6 (1.0-2.7) L Current Medications Medications (Trade) Dose Ordered Sig/Dmitri Route PRN Reason Start Time Stop Time Status Last Admin Dose Admin Acetaminophen (Tylenol) 650 mg Q4H PRN RECTAL FEVER 06/29/19 11:01 07/29/19 11:00 Albuterol/ Ipratropium (Albuterol/ Ipratropium) 3 ml Q4HRT HHN 07/04/19 20:55 07/09/19 20:54 07/08/19 11:37 Atovaquone (Mepron Susp) 1,500 mg DAILY NG 07/07/19 12:30 08/06/19 12:29 07/08/19 08:23 Cefepime HCl 2 gm/ Dextrose 110 ml @ 220 mls/hr Q24H IV 07/07/19 12:00 07/14/19 11:59 07/08/19 11:20 Chlorhexidine Gluconate (Lynn-Hex 2%) 1 applic DAILY@2000 TOPIC 07/08/19 20:00 08/07/19 19:59 Clonidine HCl (Catapres TTS-1) 1 patch QWEEK TDERMAL 07/04/19 15:00 08/03/19 14:59 07/04/19 15:47 Dextrose (Dextrose 50%) 25 ml Q30M PRN IV Hypoglycemia 06/30/19 15:00 07/30/19 14:59 Dextrose (Dextrose 50%) 50 ml Q30M PRN IV Hypoglycemia 06/30/19 15:00 07/30/19 14:59 Dextrose/ Electrolytes 1,000 ml @ 100 mls/hr Q10H IV 07/06/19 13:30 08/05/19 13:29 07/08/19 09:47 Diphenhydramine HCl (Benadryl) 25 mg Q6H PRN IVP Muscle Spasm 06/29/19 11:01 07/29/19 11:00 07/06/19 17:25 Epinephrine 1 mg/ Dextrose 250 ml @ 0 mls/hr Q24H IV 06/29/19 16:00 07/29/19 15:59 Epoetin Eric (Epoetin Eric(ESRD on dialysis)) 8,000 unit MON-WED-MON SUBQ 07/01/19 21:00 07/31/19 20:59 07/05/19 21:06 Famotidine (Pepcid I.v.) 20 mg Q12HR IVP 06/30/19 21:00 07/30/19 20:59 07/08/19 08:22 Fentanyl Citrate 2500 mcg/Sodium Chloride 250 ml @ 0 mls/hr Q24H IV 06/29/19 12:30 07/13/19 12:29 07/08/19 04:34 Heparin Sodium/ Sodium Chloride (Heparin 1000 units/500ml Premix) 1,000 unit ONCE PRN IV PICC PLACEMENT 07/08/19 09:15 07/10/19 23:59 Hydralazine HCl (Apresoline) 10 mg Q2H PRN IV For High Blood Pressure 07/02/19 21:15 08/01/19 21:14 07/04/19 18:32 Hydromorphone HCl (Dilaudid) 2 mg Q3H PRN IVP SEVERE BREAKTHROUGH PAIN 07/06/19 13:45 07/13/19 13:44 07/06/19 17:25 Insulin Aspart (NovoLOG) BEFORE MEALS AND HS SUBQ 06/30/19 16:30 07/30/19 16:29 07/08/19 11:19 Lidocaine HCl (Xylocaine 1% 30ml) 30 ml ONCE PRN INJ PICC PLACEMENT 07/08/19 09:15 07/10/19 23:59 Lorazepam (Ativan 2mg/ml 1ml) 2 mg Q4H PRN IV For Anxiety 07/03/19 09:15 07/10/19 09:14 07/07/19 10:27 Magnesium Oxide (Mag-Ox 400mg) 400 mg THREE TIMES A DAY NG 07/07/19 13:00 08/06/19 12:59 07/08/19 08:22 Methylprednisolone Sodium Succinate (Solu-MEDROL) 40 mg DAILY IVP 07/05/19 09:00 07/29/19 13:59 07/08/19 08:22 Metoclopramide HCl (Reglan) 10 mg Q6H PRN IVP Nausea & Vomiting 06/29/19 11:01 07/29/19 11:00 Norepinephrine Bitartrate 8 mg/ Dextrose 508 ml @ 0 mls/hr Q24H IV 06/29/19 12:30 07/29/19 12:29 06/30/19 11:42 Ondansetron HCl (Zofran) 4 mg Q6H PRN IVP Nausea & Vomiting 06/29/19 11:01 07/29/19 11:00 Thiamine HCl 100 mg/Dextrose 56 ml @ 112 mls/hr DAILY IVPB 07/03/19 11:00 08/02/19 10:59 07/08/19 09:42 Vasopressin 100 units/Sodium Chloride 100 ml @ 2.4 mls/hr Q24H IV 06/29/19 14:15 07/29/19 14:14 06/30/19 15:40 Kwaku Garcia MD Jul 08, 2019 11:50
--- NOTE | 2019-07-08 12:18 | Nephrology Progress Note ---
Assessment/Plan Problem List: (1) Cocaine abuse (2) Angioedema (3) Hypertension (4) Tracheostomy hemorrhage (5) JUANITA (acute kidney injury) Plan CBC, BMP today and tomorrow Tube feeding continue Abx per ID Resp therapy to reattempt weening. The patient is no longer anuric and is not acidotic. Will continue to monitor labs to verify renal function. Subjective Constitutional: Reports: no symptoms HEENT: Reports: no symptoms Genitourinary: Reports: no symptoms Neurologic/Psychiatric: Reports: no symptoms Subjective The patient has a tracheostomy and is on a mechanical ventilator. She denies nausea, pain or general discomfort, by shaking and nodding her head. Objective Objective Last 24 Hour Vital Signs Date Time Temp Pulse Resp B/P (MAP) Pulse Ox O2 Delivery O2 Flow Rate FiO2 07/08/19 11:34 139/96 07/08/19 11:30 79 13 139/96 (110) 100 07/08/19 11:29 80 24 100 Mechanical Ventilator 30 78 27 30 30 07/08/19 11:00 71 23 130/80 (97) 100 07/08/19 10:30 74 22 135/83 (100) 100 07/08/19 10:00 79 22 117/80 (92) 100 07/08/19 10:00 22 Mechanical Ventilator 07/08/19 09:34 100 07/08/19 09:30 73 23 131/78 (95) 100 07/08/19 09:29 74 24 30 30 07/08/19 09:00 20 Mechanical Ventilator 07/08/19 09:00 79 24 121/81 (94) 100 07/08/19 08:30 80 26 131/78 (95) 100 07/08/19 08:00 Mechanical Ventilator 07/08/19 08:00 30 07/08/19 08:00 98.2 79 24 149/99 (116) 100 07/08/19 08:00 18 Mechanical Ventilator 07/08/19 08:00 73 07/08/19 07:30 75 23 114/79 (91) 98 07/08/19 07:20 78 24 30 30 07/08/19 07:00 18 Mechanical Ventilator 07/08/19 07:00 66 18 123/82 (96) 100 07/08/19 06:30 77 18 129/85 (100) 100 07/08/19 06:00 99 18 110/50 (70) 100 07/08/19 06:00 18 Mechanical Ventilator 07/08/19 05:30 76 18 137/90 (106) 100 07/08/19 05:27 68 18 Mechanical Ventilator 30 07/08/19 05:00 102 18 114/43 (66) 100 07/08/19 05:00 18 Mechanical Ventilator 07/08/19 04:34 18 Mechanical Ventilator 07/08/19 04:30 75 18 110/72 (85) 100 07/08/19 04:00 30 07/08/19 04:00 18 Mechanical Ventilator 07/08/19 04:00 Mechanical Ventilator 07/08/19 04:00 94 18 135/57 (83) 100 07/08/19 04:00 77 07/08/19 03:30 81 18 141/88 (105) 100 07/08/19 03:17 94 21 100 Mechanical Ventilator 30 86 19 30 07/08/19 03:00 97 18 101/51 (68) 100 07/08/19 03:00 18 Mechanical Ventilator 07/08/19 02:30 67 18 137/80 (99) 100 07/08/19 02:00 18 Mechanical Ventilator 07/08/19 02:00 107 18 105/48 (67) 100 07/08/19 01:30 70 18 126/78 (94) 100 07/08/19 01:00 76 18 141/73 (95) 100 07/08/19 01:00 16 Mechanical Ventilator 07/08/19 01:00 80 20 Mechanical Ventilator 30 07/08/19 00:30 71 18 118/75 (89) 100 07/08/19 00:00 80 18 140/70 (93) 100 07/08/19 00:00 Mechanical Ventilator 07/08/19 00:00 16 Mechanical Ventilator 07/08/19 00:00 30 07/08/19 00:00 65 07/07/19 23:30 68 18 144/82 (102) 100 07/07/19 23:17 85 19 100 Mechanical Ventilator 30 86 18 30 07/07/19 23:00 16 Mechanical Ventilator 07/07/19 23:00 80 18 144/80 (101) 100 07/07/19 22:30 78 18 145/88 (107) 100 07/07/19 22:00 18 Mechanical Ventilator 07/07/19 22:00 89 18 149/88 (108) 100 07/07/19 21:30 80 18 154/90 (111) 100 07/07/19 21:00 74 18 30 07/07/19 21:00 80 18 148/88 (108) 100 07/07/19 21:00 18 Mechanical Ventilator 07/07/19 20:30 80 18 150/97 (114) 100 07/07/19 20:00 84 07/07/19 20:00 Mechanical Ventilator 07/07/19 20:00 30 07/07/19 20:00 18 Mechanical Ventilator 07/07/19 20:00 80 18 164/97 (119) 100 07/07/19 19:32 80 20 100 Mechanical Ventilator 30 84 20 30 07/07/19 19:30 98.8 80 18 168/95 (119) 100 07/07/19 19:00 19 Mechanical Ventilator 30 07/07/19 19:00 78 18 152/99 (116) 100 07/07/19 18:30 78 18 166/97 (120) 100 07/07/19 18:23 19 Mechanical Ventilator 30 07/07/19 18:00 19 Mechanical Ventilator 30 07/07/19 18:00 74 18 159/97 (117) 100 07/07/19 17:30 19 Mechanical Ventilator 30 07/07/19 17:30 75 19 154/94 (114) 100 07/07/19 17:15 19 Mechanical Ventilator 30 07/07/19 17:00 78 18 149/93 (111) 100 07/07/19 17:00 19 Mechanical Ventilator 30 07/07/19 16:54 89 22 30 07/07/19 16:45 19 Mechanical Ventilator 30 07/07/19 16:30 98.6 82 19 150/95 (113) 100 07/07/19 16:30 24 Mechanical Ventilator 70 07/07/19 16:00 81 18 144/88 (106) 100 07/07/19 16:00 79 07/07/19 16:00 20 Mechanical Ventilator 30 07/07/19 16:00 30 07/07/19 16:00 Mechanical Ventilator 07/07/19 15:45 83 19 154/99 (117) 100 07/07/19 15:30 97 23 167/98 (121) 99 07/07/19 15:15 83 19 158/96 (116) 100 07/07/19 15:07 82 18 100 Mechanical Ventilator 30 86 18 07/07/19 15:00 19 Mechanical Ventilator 30 07/07/19 15:00 83 18 156/100 (118) 100 07/07/19 14:45 85 19 154/97 (116) 100 07/07/19 14:30 84 20 161/100 (120) 100 07/07/19 14:00 83 18 160/92 (114) 100 07/07/19 14:00 20 Mechanical Ventilator 30 07/07/19 13:45 79 18 161/94 (116) 100 07/07/19 13:30 84 18 163/92 (115) 100 07/07/19 13:30 16 Mechanical Ventilator 30 07/07/19 13:15 87 18 158/91 (113) 100 07/07/19 13:06 78 19 30 07/07/19 13:00 90 18 162/91 (114) 100 07/07/19 13:00 18 Mechanical Ventilator 30 07/07/19 12:45 97 21 166/115 (132) 100 07/07/19 12:30 106 22 149/98 (115) 100 07/07/19 12:30 18 Mechanical Ventilator 30 07/07/19 12:15 95 24 165/104 (124) 100 Intake and Output 07/07/19 07/08/19 19:00 07:00 Intake Total 1262.75 ml 1752.5 ml Output Total 2500 ml 1750 ml Balance -1237.25 ml 2.5 ml Intake IV Total 1262.75 ml 1492.5 ml Tube Feeding 260 ml Output Urine Total 2500 ml 1750 ml Laboratory Tests 07/08/19 04:00: White Blood Count 13.1H, Red Blood Count 2.76L, Hemoglobin 8.6L, Hematocrit 26.4L, Mean Corpuscular Volume 96, Mean Corpuscular Hemoglobin 31.0, Mean Corpuscular Hemoglobin Concent 32.4, Red Cell Distribution Width 15.4H, Platelet Count 207, Mean Platelet Volume 8.2, Neutrophils (%) (Auto) 81.1H, Lymphocytes (%) (Auto) 8.3L, Monocytes (%) (Auto) 9.6, Eosinophils (%) (Auto) 0.4, Basophils (%) (Auto) 0.6, Sodium Level 140, Potassium Level 4.2, Chloride Level 110H, Carbon Dioxide Level 19L, Anion Gap 11, Blood Urea Nitrogen 16, Creatinine 1.5H, Estimat Glomerular Filtration Rate 42.9, Glucose Level 100, Calcium Level 8.0L, Total Bilirubin 0.5, Aspartate Amino Transf (AST/SGOT) 17, Alanine Aminotransferase (ALT/SGPT) 86H, Alkaline Phosphatase 56, Total Protein 5.8L, Albumin 2.1L, Globulin 3.7, Albumin/Globulin Ratio 0.6L Height (Feet): 5 Height (Inches): 4.00 Weight (Pounds): 168 General Appearance: WD/WN, no apparent distress, alert EENT: PERRL/EOMI Neck: non-tender, supple Cardiovascular: normal peripheral pulses, normal rate, regular rhythm Respiratory/Chest: lungs clear Abdomen: normal bowel sounds, non tender, soft, no organomegaly Extremities: non-tender, normal inspection, no calf tenderness Neurologic: alert, oriented x 3 Objective Ms. Burnett appears calm at this time. 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 Jul 08, 2019 12:18
[2019-07-08] MEDS: Vasopressin 100 UNITS in NS 95 ML IV SCH (12:57)
[2019-07-08] MEDS ORDERED: Vancomycin 1.5gm Premix IVPB ONE (13:00)
--- NOTE | 2019-07-08 15:30 | Cardiac Electrophysiology PN ---
Assessment/Plan Assessment/Plan 1. Angioedema, s/p emergency tracheostomy on the Vent Weaning in progress 2. S/P Hypotension, 3. Hypertension. On Clonidine patch weekly 4. Cocaine abuse 5. ARF. Last HD and no further . Left femoral Jeison removed 6. Anemia partial blood loss during tracheostomy DW RN Had new Right arm PICC line today Subjective Subjective Intubated via tracheostomy in ICU. Off Pressors. In SR . Left Femoral dialysis line is out. Underwent new Right arm PICC line today Objective Last 24 Hour Vital Signs Date Time Temp Pulse Resp B/P (MAP) Pulse Ox O2 Delivery O2 Flow Rate FiO2 07/08/19 14:30 76 28 134/84 (101) 100 07/08/19 14:00 112 27 120/88 (99) 99 07/08/19 14:00 22 Mechanical Ventilator 07/08/19 13:30 87 19 114/100 (105) 99 07/08/19 13:00 24 Endotracheal Tube 07/08/19 13:00 78 20 124/84 (97) 100 07/08/19 12:48 74 20 Mechanical Ventilator 30 30 07/08/19 12:30 76 21 133/83 (100) 100 07/08/19 12:00 30 07/08/19 12:00 97.9 83 20 136/89 (105) 100 07/08/19 12:00 Mechanical Ventilator 07/08/19 12:00 22 Mechanical Ventilator 07/08/19 12:00 75 07/08/19 11:34 139/96 07/08/19 11:30 79 13 139/96 (110) 100 07/08/19 11:29 80 24 100 Mechanical Ventilator 30 78 27 30 30 07/08/19 11:00 20 Mechanical Ventilator 07/08/19 11:00 71 23 130/80 (97) 100 07/08/19 10:30 74 22 135/83 (100) 100 07/08/19 10:00 79 22 117/80 (92) 100 07/08/19 10:00 22 Mechanical Ventilator 07/08/19 09:34 100 07/08/19 09:30 73 23 131/78 (95) 100 07/08/19 09:29 74 24 30 30 07/08/19 09:00 20 Mechanical Ventilator 07/08/19 09:00 79 24 121/81 (94) 100 07/08/19 08:30 80 26 131/78 (95) 100 07/08/19 08:00 Mechanical Ventilator 07/08/19 08:00 30 07/08/19 08:00 98.2 79 24 149/99 (116) 100 07/08/19 08:00 18 Mechanical Ventilator 07/08/19 08:00 73 07/08/19 07:30 75 23 114/79 (91) 98 07/08/19 07:20 78 24 30 30 07/08/19 07:00 18 Mechanical Ventilator 07/08/19 07:00 66 18 123/82 (96) 100 07/08/19 06:30 77 18 129/85 (100) 100 07/08/19 06:00 99 18 110/50 (70) 100 07/08/19 06:00 18 Mechanical Ventilator 07/08/19 05:30 76 18 137/90 (106) 100 07/08/19 05:27 68 18 Mechanical Ventilator 30 07/08/19 05:00 102 18 114/43 (66) 100 07/08/19 05:00 18 Mechanical Ventilator 07/08/19 04:34 18 Mechanical Ventilator 07/08/19 04:30 75 18 110/72 (85) 100 07/08/19 04:00 30 07/08/19 04:00 18 Mechanical Ventilator 07/08/19 04:00 Mechanical Ventilator 07/08/19 04:00 94 18 135/57 (83) 100 07/08/19 04:00 77 07/08/19 03:30 81 18 141/88 (105) 100 07/08/19 03:17 94 21 100 Mechanical Ventilator 30 86 19 30 07/08/19 03:00 97 18 101/51 (68) 100 07/08/19 03:00 18 Mechanical Ventilator 07/08/19 02:30 67 18 137/80 (99) 100 07/08/19 02:00 18 Mechanical Ventilator 07/08/19 02:00 107 18 105/48 (67) 100 07/08/19 01:30 70 18 126/78 (94) 100 07/08/19 01:00 76 18 141/73 (95) 100 07/08/19 01:00 16 Mechanical Ventilator 07/08/19 01:00 80 20 Mechanical Ventilator 30 07/08/19 00:30 71 18 118/75 (89) 100 07/08/19 00:00 80 18 140/70 (93) 100 07/08/19 00:00 Mechanical Ventilator 07/08/19 00:00 16 Mechanical Ventilator 07/08/19 00:00 30 07/08/19 00:00 65 07/07/19 23:30 68 18 144/82 (102) 100 07/07/19 23:17 85 19 100 Mechanical Ventilator 30 86 18 30 07/07/19 23:00 16 Mechanical Ventilator 07/07/19 23:00 80 18 144/80 (101) 100 07/07/19 22:30 78 18 145/88 (107) 100 07/07/19 22:00 18 Mechanical Ventilator 07/07/19 22:00 89 18 149/88 (108) 100 07/07/19 21:30 80 18 154/90 (111) 100 07/07/19 21:00 74 18 30 07/07/19 21:00 80 18 148/88 (108) 100 07/07/19 21:00 18 Mechanical Ventilator 07/07/19 20:30 80 18 150/97 (114) 100 07/07/19 20:00 84 07/07/19 20:00 Mechanical Ventilator 07/07/19 20:00 30 07/07/19 20:00 18 Mechanical Ventilator 07/07/19 20:00 80 18 164/97 (119) 100 07/07/19 19:32 80 20 100 Mechanical Ventilator 30 84 20 30 07/07/19 19:30 98.8 80 18 168/95 (119) 100 07/07/19 19:00 19 Mechanical Ventilator 30 07/07/19 19:00 78 18 152/99 (116) 100 07/07/19 18:30 78 18 166/97 (120) 100 07/07/19 18:23 19 Mechanical Ventilator 30 07/07/19 18:00 19 Mechanical Ventilator 30 07/07/19 18:00 74 18 159/97 (117) 100 07/07/19 17:30 19 Mechanical Ventilator 30 07/07/19 17:30 75 19 154/94 (114) 100 07/07/19 17:15 19 Mechanical Ventilator 30 07/07/19 17:00 78 18 149/93 (111) 100 07/07/19 17:00 19 Mechanical Ventilator 30 07/07/19 16:54 89 22 30 07/07/19 16:45 19 Mechanical Ventilator 30 07/07/19 16:30 98.6 82 19 150/95 (113) 100 07/07/19 16:30 24 Mechanical Ventilator 70 07/07/19 16:00 81 18 144/88 (106) 100 07/07/19 16:00 79 07/07/19 16:00 20 Mechanical Ventilator 30 07/07/19 16:00 30 07/07/19 16:00 Mechanical Ventilator 07/07/19 15:45 83 19 154/99 (117) 100 07/07/19 15:30 97 23 167/98 (121) 99 Intake and Output 07/07/19 07/08/19 19:00 07:00 Intake Total 1262.75 ml 1752.5 ml Output Total 2500 ml 1750 ml Balance -1237.25 ml 2.5 ml Intake IV Total 1262.75 ml 1492.5 ml Tube Feeding 260 ml Output Urine Total 2500 ml 1750 ml Laboratory Tests Test 07/08/19 04:00 White Blood Count 13.1 K/UL (4.8-10.8) H Red Blood Count 2.76 M/UL (4.20-5.40) L Hemoglobin 8.6 G/DL (12.0-16.0) L Hematocrit 26.4 % (37.0-47.0) L Mean Corpuscular Volume 96 FL (80-99) Mean Corpuscular Hemoglobin 31.0 PG (27.0-31.0) Mean Corpuscular Hemoglobin Concent 32.4 G/DL (32.0-36.0) Red Cell Distribution Width 15.4 % (11.6-14.8) H Platelet Count 207 K/UL (150-450) Mean Platelet Volume 8.2 FL (6.5-10.1) Neutrophils (%) (Auto) 81.1 % (45.0-75.0) H Lymphocytes (%) (Auto) 8.3 % (20.0-45.0) L Monocytes (%) (Auto) 9.6 % (1.0-10.0) Eosinophils (%) (Auto) 0.4 % (0.0-3.0) Basophils (%) (Auto) 0.6 % (0.0-2.0) Sodium Level 140 MMOL/L (136-145) Potassium Level 4.2 MMOL/L (3.5-5.1) Chloride Level 110 MMOL/L (98-107) H Carbon Dioxide Level 19 MMOL/L (21-32) L Anion Gap 11 mmol/L (5-15) Blood Urea Nitrogen 16 mg/dL (7-18) Creatinine 1.5 MG/DL (0.55-1.30) H Estimat Glomerular Filtration Rate 42.9 mL/min (>60) Glucose Level 100 MG/DL (74-106) Calcium Level 8.0 MG/DL (8.5-10.1) L Total Bilirubin 0.5 MG/DL (0.2-1.0) Aspartate Amino Transf (AST/SGOT) 17 U/L (15-37) Alanine Aminotransferase (ALT/SGPT) 86 U/L (12-78) H Alkaline Phosphatase 56 U/L (46-116) Total Protein 5.8 G/DL (6.4-8.2) L Albumin 2.1 G/DL (3.4-5.0) L Globulin 3.7 g/dL Albumin/Globulin Ratio 0.6 (1.0-2.7) L Microbiology Date/Time Source Procedure Growth Status 07/07/19 04:00 Sputum Induced Gram Stain - Final Resulted 07/07/19 04:00 Sputum Induced Sputum Culture Pending Resulted 07/07/19 04:00 Trachea Drainage Gram Stain - Final Resulted 07/07/19 04:00 Wound Culture - Preliminary Staphylococcus Aureus Gram Negative Bacillus 1 Resulted Objective HEENT: Tracheostomy in place LUNGS: Coarse rhonchi CVS: RRR ABDOMEN: Obese EXT: No edema. Right femoral triple lumen Catheter and Right arm PICC line in place Giles Rodarte MD Jul 08, 2019 15:30
--- NOTE | 2019-07-08 15:39 | Surgery Progress Note ---
Surgery Progress Note Subjective Additional Comments no acute events line being placed today trach site still with drainage on vent support Objective Last 24 Hour Vital Signs Date Time Temp Pulse Resp B/P (MAP) Pulse Ox O2 Delivery O2 Flow Rate FiO2 07/08/19 14:30 76 28 134/84 (101) 100 07/08/19 14:00 112 27 120/88 (99) 99 07/08/19 14:00 22 Mechanical Ventilator 07/08/19 13:30 87 19 114/100 (105) 99 07/08/19 13:00 24 Endotracheal Tube 07/08/19 13:00 78 20 124/84 (97) 100 07/08/19 12:48 74 20 Mechanical Ventilator 30 30 07/08/19 12:30 76 21 133/83 (100) 100 07/08/19 12:00 30 07/08/19 12:00 97.9 83 20 136/89 (105) 100 07/08/19 12:00 Mechanical Ventilator 07/08/19 12:00 22 Mechanical Ventilator 07/08/19 12:00 75 07/08/19 11:34 139/96 07/08/19 11:30 79 13 139/96 (110) 100 07/08/19 11:29 80 24 100 Mechanical Ventilator 30 78 27 30 30 07/08/19 11:00 20 Mechanical Ventilator 07/08/19 11:00 71 23 130/80 (97) 100 07/08/19 10:30 74 22 135/83 (100) 100 07/08/19 10:00 79 22 117/80 (92) 100 07/08/19 10:00 22 Mechanical Ventilator 07/08/19 09:34 100 07/08/19 09:30 73 23 131/78 (95) 100 07/08/19 09:29 74 24 30 30 07/08/19 09:00 20 Mechanical Ventilator 07/08/19 09:00 79 24 121/81 (94) 100 07/08/19 08:30 80 26 131/78 (95) 100 07/08/19 08:00 Mechanical Ventilator 07/08/19 08:00 30 07/08/19 08:00 98.2 79 24 149/99 (116) 100 07/08/19 08:00 18 Mechanical Ventilator 07/08/19 08:00 73 07/08/19 07:30 75 23 114/79 (91) 98 07/08/19 07:20 78 24 30 30 07/08/19 07:00 18 Mechanical Ventilator 07/08/19 07:00 66 18 123/82 (96) 100 07/08/19 06:30 77 18 129/85 (100) 100 07/08/19 06:00 99 18 110/50 (70) 100 07/08/19 06:00 18 Mechanical Ventilator 07/08/19 05:30 76 18 137/90 (106) 100 07/08/19 05:27 68 18 Mechanical Ventilator 30 07/08/19 05:00 102 18 114/43 (66) 100 07/08/19 05:00 18 Mechanical Ventilator 07/08/19 04:34 18 Mechanical Ventilator 07/08/19 04:30 75 18 110/72 (85) 100 07/08/19 04:00 30 07/08/19 04:00 18 Mechanical Ventilator 07/08/19 04:00 Mechanical Ventilator 07/08/19 04:00 94 18 135/57 (83) 100 07/08/19 04:00 77 07/08/19 03:30 81 18 141/88 (105) 100 07/08/19 03:17 94 21 100 Mechanical Ventilator 30 86 19 30 07/08/19 03:00 97 18 101/51 (68) 100 07/08/19 03:00 18 Mechanical Ventilator 07/08/19 02:30 67 18 137/80 (99) 100 07/08/19 02:00 18 Mechanical Ventilator 07/08/19 02:00 107 18 105/48 (67) 100 07/08/19 01:30 70 18 126/78 (94) 100 07/08/19 01:00 76 18 141/73 (95) 100 07/08/19 01:00 16 Mechanical Ventilator 07/08/19 01:00 80 20 Mechanical Ventilator 30 07/08/19 00:30 71 18 118/75 (89) 100 07/08/19 00:00 80 18 140/70 (93) 100 07/08/19 00:00 Mechanical Ventilator 07/08/19 00:00 16 Mechanical Ventilator 07/08/19 00:00 30 07/08/19 00:00 65 07/07/19 23:30 68 18 144/82 (102) 100 07/07/19 23:17 85 19 100 Mechanical Ventilator 30 86 18 30 07/07/19 23:00 16 Mechanical Ventilator 07/07/19 23:00 80 18 144/80 (101) 100 07/07/19 22:30 78 18 145/88 (107) 100 07/07/19 22:00 18 Mechanical Ventilator 07/07/19 22:00 89 18 149/88 (108) 100 07/07/19 21:30 80 18 154/90 (111) 100 07/07/19 21:00 74 18 30 07/07/19 21:00 80 18 148/88 (108) 100 07/07/19 21:00 18 Mechanical Ventilator 07/07/19 20:30 80 18 150/97 (114) 100 07/07/19 20:00 84 07/07/19 20:00 Mechanical Ventilator 07/07/19 20:00 30 07/07/19 20:00 18 Mechanical Ventilator 07/07/19 20:00 80 18 164/97 (119) 100 07/07/19 19:32 80 20 100 Mechanical Ventilator 30 84 20 30 07/07/19 19:30 98.8 80 18 168/95 (119) 100 07/07/19 19:00 19 Mechanical Ventilator 30 07/07/19 19:00 78 18 152/99 (116) 100 07/07/19 18:30 78 18 166/97 (120) 100 07/07/19 18:23 19 Mechanical Ventilator 30 07/07/19 18:00 19 Mechanical Ventilator 30 07/07/19 18:00 74 18 159/97 (117) 100 07/07/19 17:30 19 Mechanical Ventilator 30 07/07/19 17:30 75 19 154/94 (114) 100 07/07/19 17:15 19 Mechanical Ventilator 30 07/07/19 17:00 78 18 149/93 (111) 100 07/07/19 17:00 19 Mechanical Ventilator 30 07/07/19 16:54 89 22 30 07/07/19 16:45 19 Mechanical Ventilator 30 07/07/19 16:30 98.6 82 19 150/95 (113) 100 07/07/19 16:30 24 Mechanical Ventilator 70 07/07/19 16:00 81 18 144/88 (106) 100 07/07/19 16:00 79 07/07/19 16:00 20 Mechanical Ventilator 30 07/07/19 16:00 30 07/07/19 16:00 Mechanical Ventilator 07/07/19 15:45 83 19 154/99 (117) 100 I&O Intake and Output 07/07/19 07/08/19 19:00 07:00 Intake Total 1262.75 ml 1752.5 ml Output Total 2500 ml 1750 ml Balance -1237.25 ml 2.5 ml Intake IV Total 1262.75 ml 1492.5 ml Tube Feeding 260 ml Output Urine Total 2500 ml 1750 ml Dressing: saturated Wound: other Drains: other Cardiovascular: RSR Respiratory: decreased breath sounds Abdomen: soft, present bowel sounds Extremities: no cyanosis Laboratory Tests Test 07/08/19 04:00 White Blood Count 13.1 K/UL (4.8-10.8) H Red Blood Count 2.76 M/UL (4.20-5.40) L Hemoglobin 8.6 G/DL (12.0-16.0) L Hematocrit 26.4 % (37.0-47.0) L Mean Corpuscular Volume 96 FL (80-99) Mean Corpuscular Hemoglobin 31.0 PG (27.0-31.0) Mean Corpuscular Hemoglobin Concent 32.4 G/DL (32.0-36.0) Red Cell Distribution Width 15.4 % (11.6-14.8) H Platelet Count 207 K/UL (150-450) Mean Platelet Volume 8.2 FL (6.5-10.1) Neutrophils (%) (Auto) 81.1 % (45.0-75.0) H Lymphocytes (%) (Auto) 8.3 % (20.0-45.0) L Monocytes (%) (Auto) 9.6 % (1.0-10.0) Eosinophils (%) (Auto) 0.4 % (0.0-3.0) Basophils (%) (Auto) 0.6 % (0.0-2.0) Sodium Level 140 MMOL/L (136-145) Potassium Level 4.2 MMOL/L (3.5-5.1) Chloride Level 110 MMOL/L (98-107) H Carbon Dioxide Level 19 MMOL/L (21-32) L Anion Gap 11 mmol/L (5-15) Blood Urea Nitrogen 16 mg/dL (7-18) Creatinine 1.5 MG/DL (0.55-1.30) H Estimat Glomerular Filtration Rate 42.9 mL/min (>60) Glucose Level 100 MG/DL (74-106) Calcium Level 8.0 MG/DL (8.5-10.1) L Total Bilirubin 0.5 MG/DL (0.2-1.0) Aspartate Amino Transf (AST/SGOT) 17 U/L (15-37) Alanine Aminotransferase (ALT/SGPT) 86 U/L (12-78) H Alkaline Phosphatase 56 U/L (46-116) Total Protein 5.8 G/DL (6.4-8.2) L Albumin 2.1 G/DL (3.4-5.0) L Globulin 3.7 g/dL Albumin/Globulin Ratio 0.6 (1.0-2.7) L Plan Problems: (1) Angioedema Assessment & Plan: airway trach as per reports trach stable currently sutures in place dressings changed HD line in place and noted back o vent wean will follow with recs thank you (2) Tracheostomy hemorrhage Assessment & Plan: stable dressings dry will monitor cont off vent as tolerated (3) Tracheostomy complication Assessment & Plan: if continues to have leak of mucus with cough and possible infection of trach site may need revision George Cavazos Jul 08, 2019 15:39
[2019-07-08] MEDS: EPINEPHrine 1mg/1ml Amp 1 MG in D5W 249 ML IV SCH (15:45)
[2019-07-08] MEDS: DiphenhydrAMINE 50mg/ml Inj IVP PRN (16:12)
--- NOTE | 2019-07-08 16:16 | Hematology/Onc Progress Note ---
Assessment/Plan Assessment/Plan A/R # Thrombocytopenia - potential causes multifactorial, evaluate liver and viral etiologies to begin, also could be related to underlying medications patient has received. 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 Significance/etiology uncertain. This can be seen in chronic pancreatitis as well as ductectatic neoplasm--> once more stable get Ct with iv cont --> DIC panel has been reviewed, NEgative --> Peripheral smear ordered to evaluate for blasts /schistocytes and none noted --> abx and other meds have been reviewed --> ok for ppx if plt >50k w/ either heparin or lovenox --> Transfuse if Plt < 20k and fever, or if Plt < 10k without fever --> plt trend 200-->87-->60-->38k-> 50k-->91k-->110k-->138k-->184k->207k -> [id number] ordered -- > is neg --> ID eval and care per id # Anemia of chronic disease due to underlying chronic medical issues, multifactorial --> Anemia workup has been ordered and c/w acd --> No evidence of hemolysis is noted, peripheral smear has been reviewed. --> Hgb goal >7. Transfuse prn. --> Epogen or iron at this time is not particularly indicated --> Medications have been reviewed --> low threshold for gi evaluation in case has occult + --> hgb trend 8.7--> 9-->10.9-->9.7->8.6 # Leukocytosis --> wbc trend 17-->15-->14k->16-->19.4-->15-->15.9-->13.6 --> steriods for angioedema # Angioedeam --> ffp, steriods given --> s/p trach # Resp failure s/p trach --> to vent # Severe Hypotension --> is now off both pressors. # Hx of Hypertension # Cocaine abuse # ARF on HD now --> 07/02 --> now off hd # HIV++ The timing of this note does not necessarily reflect the time of the patient was seen. GREATLY APPRECIATE CONSULTATION. Subjective Constitutional: Denies: no symptoms, chills, fever, malaise, weakness, other HEENT: Denies: no symptoms, eye pain, blurred vision, tearing, double vision, ear pain, ear discharge, nose pain, nose congestion, throat pain, throat swelling, mouth pain, mouth swelling, other Gastrointestinal/Abdominal: Denies: no symptoms, abdomen distended, abdominal pain, black stools, tarry stools, blood in stool, constipated, diarrhea, difficulty swallowing, nausea, poor appetite, poor fluid intake, rectal bleeding , vomiting, other Genitourinary: Denies: no symptoms, burning, discharge, frequency, flank pain, hematuria, incontinence, pain, urgency, other Neurologic/Psychiatric: Denies: no symptoms, anxiety, depressed, emotional problems, headache, numbness, paresthesia, pre-existing deficit, seizure, tingling, tremors, weakness, other Endocrine: Denies: no symptoms, excessive sweating, flushing, intolerance to cold, intolerance to heat, increased hunger, increased thirst, increased urine, unexplained weight gain, unexplained weight loss, other Allergies: Coded Allergies: No Known Allergies (Unverified , 06/29/19) Subjective 07/02: remains in the icu, onpressors and epogen, hgb stable 07/03: in icu, no events, on vent, no fever or chills, denies pain or sob 07/04: s/p vent/trach, on fentanyl gtt, id made aware of HIV++ 07/05: sedated, trach, off abx, labs reviewed 07/07: weaning off pressors, no fevers or chills, is on pcp ppx 07/08: weaning off vent, no bleeding, htn better on clonidine coughing intermittently Objective Objective Current Medications Medications (Trade) Dose Ordered Sig/Dmitri Route PRN Reason Start Time Stop Time Status Last Admin Dose Admin Acetaminophen (Tylenol) 650 mg Q4H PRN RECTAL FEVER 06/29/19 11:01 07/29/19 11:00 Albuterol/ Ipratropium (Albuterol/ Ipratropium) 3 ml Q4HRT HHN 07/04/19 20:55 07/09/19 20:54 07/08/19 16:04 Atovaquone (Mepron Susp) 1,500 mg DAILY NG 07/07/19 12:30 08/06/19 12:29 07/08/19 08:23 Cefepime HCl 2 gm/ Dextrose 110 ml @ 220 mls/hr Q24H IV 07/07/19 12:00 07/14/19 11:59 07/08/19 11:20 Chlorhexidine Gluconate (Lynn-Hex 2%) 1 applic DAILY@2000 TOPIC 07/08/19 20:00 08/07/19 19:59 Clonidine HCl (Catapres TTS-1) 1 patch QWEEK TDERMAL 07/04/19 15:00 08/03/19 14:59 07/04/19 15:47 Dextrose (Dextrose 50%) 25 ml Q30M PRN IV Hypoglycemia 06/30/19 15:00 07/30/19 14:59 Dextrose (Dextrose 50%) 50 ml Q30M PRN IV Hypoglycemia 06/30/19 15:00 07/30/19 14:59 Dextrose/ Electrolytes 1,000 ml @ 100 mls/hr Q10H IV 07/06/19 13:30 08/05/19 13:29 07/08/19 09:47 Diphenhydramine HCl (Benadryl) 25 mg Q6H PRN IVP Muscle Spasm 06/29/19 11:01 07/29/19 11:00 07/08/19 16:12 Epinephrine 1 mg/ Dextrose 250 ml @ 0 mls/hr Q24H IV 06/29/19 16:00 07/29/19 15:59 Epoetin Eric (Epoetin Eric(ESRD on dialysis)) 8,000 unit MON-MON-MON SUBQ 07/01/19 21:00 07/31/19 20:59 07/05/19 21:06 Famotidine (Pepcid I.v.) 20 mg Q12HR IVP 06/30/19 21:00 07/30/19 20:59 07/08/19 08:22 Fentanyl Citrate 2500 mcg/Sodium Chloride 250 ml @ 0 mls/hr Q24H IV 06/29/19 12:30 07/13/19 12:29 07/08/19 04:34 Heparin Sodium/ Sodium Chloride (Heparin 1000 units/500ml Premix) 1,000 unit ONCE PRN IV PICC PLACEMENT 07/08/19 09:15 07/10/19 23:59 Hydralazine HCl (Apresoline) 10 mg Q2H PRN IV For High Blood Pressure 07/02/19 21:15 08/01/19 21:14 07/04/19 18:32 Hydromorphone HCl (Dilaudid) 2 mg Q3H PRN IVP SEVERE BREAKTHROUGH PAIN 07/06/19 13:45 07/13/19 13:44 07/06/19 17:25 Insulin Aspart (NovoLOG) BEFORE MEALS AND HS SUBQ 06/30/19 16:30 07/30/19 16:29 07/08/19 11:19 Lidocaine HCl (Xylocaine 1% 30ml) 30 ml ONCE PRN INJ PICC PLACEMENT 07/08/19 09:15 07/10/19 23:59 Lorazepam (Ativan 2mg/ml 1ml) 2 mg Q4H PRN IV For Anxiety 07/03/19 09:15 07/10/19 09:14 07/07/19 10:27 Magnesium Oxide (Mag-Ox 400mg) 400 mg THREE TIMES A DAY NG 07/07/19 13:00 08/06/19 12:59 07/08/19 13:44 Methylprednisolone Sodium Succinate (Solu-MEDROL) 40 mg DAILY IVP 07/05/19 09:00 07/29/19 13:59 07/08/19 08:22 Metoclopramide HCl (Reglan) 10 mg Q6H PRN IVP Nausea & Vomiting 06/29/19 11:01 07/29/19 11:00 Norepinephrine Bitartrate 8 mg/ Dextrose 508 ml @ 0 mls/hr Q24H IV 06/29/19 12:30 07/29/19 12:29 06/30/19 11:42 Ondansetron HCl (Zofran) 4 mg Q6H PRN IVP Nausea & Vomiting 06/29/19 11:01 07/29/19 11:00 Thiamine HCl 100 mg/Dextrose 56 ml @ 112 mls/hr DAILY IVPB 07/03/19 11:00 08/02/19 10:59 07/08/19 09:42 Vancomycin HCl (Vanco rx to dose) 1 ea DAILY PRN MISC Per rx protocol 07/08/19 12:00 08/07/19 11:59 Vasopressin 100 units/Sodium Chloride 100 ml @ 2.4 mls/hr Q24H IV 06/29/19 14:15 07/29/19 14:14 06/30/19 15:40 Last 24 Hour Vital Signs Date Time Temp Pulse Resp B/P (MAP) Pulse Ox O2 Delivery O2 Flow Rate FiO2 07/08/19 16:04 75 19 100 Mechanical Ventilator 30 95 24 30 07/08/19 15:30 74 21 130/83 (99) 100 07/08/19 15:00 71 16 134/84 (101) 100 07/08/19 15:00 24 Mechanical Ventilator 07/08/19 14:30 76 28 134/84 (101) 100 07/08/19 14:00 112 27 120/88 (99) 99 07/08/19 14:00 22 Mechanical Ventilator 07/08/19 13:30 87 19 114/100 (105) 99 07/08/19 13:00 24 Endotracheal Tube 07/08/19 13:00 78 20 124/84 (97) 100 07/08/19 12:48 74 20 30 30 07/08/19 12:30 76 21 133/83 (100) 100 07/08/19 12:00 30 07/08/19 12:00 97.9 83 20 136/89 (105) 100 07/08/19 12:00 Mechanical Ventilator 07/08/19 12:00 22 Mechanical Ventilator 07/08/19 12:00 75 07/08/19 11:34 139/96 07/08/19 11:30 79 13 139/96 (110) 100 07/08/19 11:29 80 24 100 Mechanical Ventilator 30 78 27 30 30 07/08/19 11:00 20 Mechanical Ventilator 07/08/19 11:00 71 23 130/80 (97) 100 07/08/19 10:30 74 22 135/83 (100) 100 07/08/19 10:00 79 22 117/80 (92) 100 07/08/19 10:00 22 Mechanical Ventilator 07/08/19 09:34 100 07/08/19 09:30 73 23 131/78 (95) 100 07/08/19 09:29 74 24 30 30 07/08/19 09:00 20 Mechanical Ventilator 07/08/19 09:00 79 24 121/81 (94) 100 07/08/19 08:30 80 26 131/78 (95) 100 07/08/19 08:00 Mechanical Ventilator 07/08/19 08:00 30 07/08/19 08:00 98.2 79 24 149/99 (116) 100 07/08/19 08:00 18 Mechanical Ventilator 07/08/19 08:00 73 07/08/19 07:30 75 23 114/79 (91) 98 07/08/19 07:20 78 24 30 30 07/08/19 07:00 18 Mechanical Ventilator 07/08/19 07:00 66 18 123/82 (96) 100 07/08/19 06:30 77 18 129/85 (100) 100 07/08/19 06:00 99 18 110/50 (70) 100 07/08/19 06:00 18 Mechanical Ventilator 07/08/19 05:30 76 18 137/90 (106) 100 07/08/19 05:27 68 18 Mechanical Ventilator 30 07/08/19 05:00 102 18 114/43 (66) 100 07/08/19 05:00 18 Mechanical Ventilator 07/08/19 04:34 18 Mechanical Ventilator 07/08/19 04:30 75 18 110/72 (85) 100 07/08/19 04:00 30 07/08/19 04:00 18 Mechanical Ventilator 07/08/19 04:00 Mechanical Ventilator 07/08/19 04:00 94 18 135/57 (83) 100 07/08/19 04:00 77 07/08/19 03:30 81 18 141/88 (105) 100 07/08/19 03:17 94 21 100 Mechanical Ventilator 30 86 19 30 07/08/19 03:00 97 18 101/51 (68) 100 07/08/19 03:00 18 Mechanical Ventilator 07/08/19 02:30 67 18 137/80 (99) 100 07/08/19 02:00 18 Mechanical Ventilator 07/08/19 02:00 107 18 105/48 (67) 100 07/08/19 01:30 70 18 126/78 (94) 100 07/08/19 01:00 76 18 141/73 (95) 100 07/08/19 01:00 16 Mechanical Ventilator 07/08/19 01:00 80 20 Mechanical Ventilator 30 07/08/19 00:30 71 18 118/75 (89) 100 07/08/19 00:00 80 18 140/70 (93) 100 07/08/19 00:00 Mechanical Ventilator 07/08/19 00:00 16 Mechanical Ventilator 07/08/19 00:00 30 07/08/19 00:00 65 07/07/19 23:30 68 18 144/82 (102) 100 07/07/19 23:17 85 19 100 Mechanical Ventilator 30 86 18 30 07/07/19 23:00 16 Mechanical Ventilator 07/07/19 23:00 80 18 144/80 (101) 100 07/07/19 22:30 78 18 145/88 (107) 100 07/07/19 22:00 18 Mechanical Ventilator 07/07/19 22:00 89 18 149/88 (108) 100 07/07/19 21:30 80 18 154/90 (111) 100 07/07/19 21:00 74 18 30 07/07/19 21:00 80 18 148/88 (108) 100 07/07/19 21:00 18 Mechanical Ventilator 07/07/19 20:30 80 18 150/97 (114) 100 07/07/19 20:00 84 07/07/19 20:00 Mechanical Ventilator 07/07/19 20:00 30 07/07/19 20:00 18 Mechanical Ventilator 07/07/19 20:00 80 18 164/97 (119) 100 07/07/19 19:32 80 20 100 Mechanical Ventilator 30 84 20 30 07/07/19 19:30 98.8 80 18 168/95 (119) 100 07/07/19 19:00 19 Mechanical Ventilator 30 07/07/19 19:00 78 18 152/99 (116) 100 07/07/19 18:30 78 18 166/97 (120) 100 07/07/19 18:23 19 Mechanical Ventilator 30 07/07/19 18:00 19 Mechanical Ventilator 30 07/07/19 18:00 74 18 159/97 (117) 100 07/07/19 17:30 19 Mechanical Ventilator 30 07/07/19 17:30 75 19 154/94 (114) 100 07/07/19 17:15 19 Mechanical Ventilator 30 07/07/19 17:00 78 18 149/93 (111) 100 07/07/19 17:00 19 Mechanical Ventilator 30 07/07/19 16:54 89 22 30 07/07/19 16:45 19 Mechanical Ventilator 30 07/07/19 16:30 98.6 82 19 150/95 (113) 100 07/07/19 16:30 24 Mechanical Ventilator 70 07/07/19 16:00 81 18 144/88 (106) 100 07/07/19 16:00 79 07/07/19 16:00 20 Mechanical Ventilator 30 07/07/19 16:00 30 07/07/19 16:00 Mechanical Ventilator 07/07/19 15:45 83 19 154/99 (117) 100 07/07/19 15:30 97 23 167/98 (121) 99 07/07/19 15:15 83 19 158/96 (116) 100 07/07/19 15:07 82 18 100 Mechanical Ventilator 30 86 18 07/07/19 15:00 19 Mechanical Ventilator 30 07/07/19 15:00 83 18 156/100 (118) 100 07/07/19 14:45 85 19 154/97 (116) 100 07/07/19 14:30 84 20 161/100 (120) 100 07/07/19 14:00 83 18 160/92 (114) 100 07/07/19 14:00 20 Mechanical Ventilator 30 07/07/19 13:45 79 18 161/94 (116) 100 07/07/19 13:30 84 18 163/92 (115) 100 07/07/19 13:30 16 Mechanical Ventilator 30 07/07/19 13:15 87 18 158/91 (113) 100 07/07/19 13:06 78 19 30 07/07/19 13:00 90 18 162/91 (114) 100 07/07/19 13:00 18 Mechanical Ventilator 30 07/07/19 12:45 97 21 166/115 (132) 100 07/07/19 12:30 106 22 149/98 (115) 100 07/07/19 12:30 18 Mechanical Ventilator 30 07/07/19 12:15 95 24 165/104 (124) 100 07/07/19 12:00 30 07/07/19 12:00 98.6 96 22 152/93 (112) 100 07/07/19 12:00 100 07/07/19 12:00 Mechanical Ventilator 07/07/19 12:00 22 Mechanical Ventilator 30 07/07/19 12:00 96 22 152/93 (112) 100 07/07/19 11:48 154/94 07/07/19 11:30 18 Mechanical Ventilator 30 07/07/19 11:30 94 22 163/99 (120) 100 07/07/19 11:18 91 23 30 07/07/19 11:00 89 22 150/94 (112) 100 07/07/19 11:00 22 Mechanical Ventilator 30 07/07/19 10:30 98 21 155/95 (115) 100 07/07/19 10:00 96 19 153/94 (113) 100 07/07/19 10:00 19 Mechanical Ventilator 30 07/07/19 09:30 100 25 160/113 (129) 100 07/07/19 09:20 99 07/07/19 09:00 25 Mechanical Ventilator 30 07/07/19 09:00 115 25 166/97 (120) 100 07/07/19 08:54 85 27 30 07/07/19 08:30 89 23 188/95 (126) 100 07/07/19 08:15 88 21 148/89 (108) 100 07/07/19 08:00 22 Mechanical Ventilator 30 07/07/19 08:00 30 07/07/19 08:00 Mechanical Ventilator 07/07/19 08:00 87 22 144/88 (106) 100 07/07/19 08:00 85 07/07/19 07:45 89 22 144/86 (105) 100 07/07/19 07:30 87 21 146/89 (108) 100 07/07/19 07:30 23 Mechanical Ventilator 30 07/07/19 07:20 89 24 100 Mechanical Ventilator 30 07/07/19 07:15 96 24 30 07/07/19 07:00 98 24 147/95 (112) 98 07/07/19 07:00 23 Mechanical Ventilator 30 07/07/19 06:30 101 23 151/91 (111) 100 07/07/19 06:00 18 Mechanical Ventilator 30 07/07/19 06:00 83 20 153/91 (111) 100 07/07/19 05:30 84 20 149/89 (109) 100 07/07/19 05:00 91 21 147/82 (103) 100 07/07/19 05:00 18 Mechanical Ventilator 30 07/07/19 04:45 93 19 138/71 (93) 100 07/07/19 04:41 89 22 30 07/07/19 04:30 94 20 147/92 (110) 100 07/07/19 04:15 90 19 147/90 (109) 100 07/07/19 04:00 30 07/07/19 04:00 Mechanical Ventilator 07/07/19 04:00 18 Mechanical Ventilator 30 07/07/19 04:00 95 07/07/19 04:00 98.5 92 29 152/87 (108) 100 07/07/19 03:30 93 20 162/97 (118) 100 07/07/19 03:11 98 22 100 30 100 20 30 07/07/19 03:00 98 22 155/99 (117) 100 07/07/19 03:00 18 Mechanical Ventilator 30 07/07/19 02:30 93 20 152/91 (111) 100 07/07/19 02:00 92 19 154/90 (111) 100 07/07/19 02:00 18 Non-Rebreather 30 07/07/19 01:30 108 23 176/117 (136) 100 07/07/19 01:10 106 19 30 07/07/19 01:00 18 Mechanical Ventilator 30 07/07/19 01:00 92 21 155/86 (109) 100 07/07/19 00:45 90 18 139/80 (99) 100 07/07/19 00:30 81 21 134/78 (96) 100 07/07/19 00:15 94 21 139/81 (100) 100 07/07/19 00:00 Mechanical Ventilator 07/07/19 00:00 75 07/07/19 00:00 98.7 89 20 140/80 (100) 100 07/07/19 00:00 18 Mechanical Ventilator 30 07/07/19 00:00 30 07/06/19 23:30 78 18 140/103 (115) 100 07/06/19 23:20 78 20 100 30 82 18 30 07/06/19 23:00 18 Mechanical Ventilator 30 07/06/19 23:00 80 21 137/80 (99) 100 07/06/19 22:30 85 23 135/83 (100) 100 07/06/19 22:00 18 Mechanical Ventilator 30 07/06/19 22:00 81 19 134/78 (96) 100 07/06/19 21:30 77 18 141/83 (102) 100 07/06/19 21:17 80 18 30 07/06/19 21:00 79 21 136/82 (100) 100 07/06/19 21:00 18 Mechanical Ventilator 30 07/06/19 20:30 81 20 136/84 (101) 100 07/06/19 20:00 Mechanical Ventilator 07/06/19 20:00 74 07/06/19 20:00 18 Mechanical Ventilator 30 07/06/19 20:00 98.3 78 19 133/76 (95) 100 07/06/19 20:00 30 07/06/19 19:30 67 18 143/80 (101) 100 07/06/19 19:30 65 18 100 30 68 18 30 07/06/19 19:00 18 Mechanical Ventilator 30 07/06/19 19:00 72 18 136/81 (99) 100 07/06/19 18:30 74 18 129/86 (100) 100 07/06/19 18:00 81 18 134/86 (102) 100 07/06/19 18:00 Mechanical Ventilator 07/06/19 17:30 86 18 147/90 (109) 100 07/06/19 17:00 86 18 30 07/06/19 17:00 91 19 148/87 (107) 100 07/06/19 17:00 Mechanical Ventilator 07/06/19 16:30 88 20 103/67 (79) 100 Intake and Output 07/07/19 07/08/19 19:00 07:00 Intake Total 1262.75 ml 1752.5 ml Output Total 2500 ml 1750 ml Balance -1237.25 ml 2.5 ml Intake IV Total 1262.75 ml 1492.5 ml Tube Feeding 260 ml Output Urine Total 2500 ml 1750 ml Labs Test 07/06/19 06:20 07/07/19 07:00 07/07/19 09:14 07/08/19 04:00 White Blood Count 14.6 K/UL (4.8-10.8) 15.3 K/UL (4.8-10.8) 13.1 K/UL (4.8-10.8) Red Blood Count 2.68 M/UL (4.20-5.40) 2.78 M/UL (4.20-5.40) 2.76 M/UL (4.20-5.40) Hemoglobin 8.5 G/DL (12.0-16.0) 8.6 G/DL (12.0-16.0) 8.6 G/DL (12.0-16.0) Hematocrit 25.4 % (37.0-47.0) 26.3 % (37.0-47.0) 26.4 % (37.0-47.0) Mean Corpuscular Volume 95 FL (80-99) 95 FL (80-99) 96 FL (80-99) Mean Corpuscular Hemoglobin 31.5 PG (27.0-31.0) 30.9 PG (27.0-31.0) 31.0 PG (27.0-31.0) Mean Corpuscular Hemoglobin Concent 33.3 G/DL (32.0-36.0) 32.7 G/DL (32.0-36.0) 32.4 G/DL (32.0-36.0) Red Cell Distribution Width 15.7 % (11.6-14.8) 15.1 % (11.6-14.8) 15.4 % (11.6-14.8) Platelet Count 131 K/UL (150-450) 184 K/UL (150-450) 207 K/UL (150-450) Mean Platelet Volume 8.4 FL (6.5-10.1) 8.7 FL (6.5-10.1) 8.2 FL (6.5-10.1) Neutrophils (%) (Auto) 81.6 % (45.0-75.0) 80.9 % (45.0-75.0) 81.1 % (45.0-75.0) Lymphocytes (%) (Auto) 7.4 % (20.0-45.0) 7.7 % (20.0-45.0) 8.3 % (20.0-45.0) Monocytes (%) (Auto) 8.6 % (1.0-10.0) 9.9 % (1.0-10.0) 9.6 % (1.0-10.0) Eosinophils (%) (Auto) 0.8 % (0.0-3.0) 0.7 % (0.0-3.0) 0.4 % (0.0-3.0) Basophils (%) (Auto) 1.5 % (0.0-2.0) 0.8 % (0.0-2.0) 0.6 % (0.0-2.0) Sodium Level 141 MMOL/L (136-145) 141 MMOL/L (136-145) 140 MMOL/L (136-145) Potassium Level 3.3 MMOL/L (3.5-5.1) 3.9 MMOL/L (3.5-5.1) 4.2 MMOL/L (3.5-5.1) Chloride Level 112 MMOL/L (98-107) 112 MMOL/L (98-107) 110 MMOL/L (98-107) Carbon Dioxide Level 20 MMOL/L (21-32) 18 MMOL/L (21-32) 19 MMOL/L (21-32) Anion Gap 9 mmol/L (5-15) 11 mmol/L (5-15) 11 mmol/L (5-15) Blood Urea Nitrogen 25 mg/dL (7-18) 18 mg/dL (7-18) 16 mg/dL (7-18) Creatinine 1.8 MG/DL (0.55-1.30) 1.5 MG/DL (0.55-1.30) 1.5 MG/DL (0.55-1.30) Estimat Glomerular Filtration Rate 34.8 mL/min (>60) 42.9 mL/min (>60) 42.9 mL/min (>60) Glucose Level 113 MG/DL (74-106) 104 MG/DL (74-106) 100 MG/DL (74-106) Calcium Level 7.7 MG/DL (8.5-10.1) 8.1 MG/DL (8.5-10.1) 8.0 MG/DL (8.5-10.1) Total Bilirubin 0.5 MG/DL (0.2-1.0) 0.5 MG/DL (0.2-1.0) Aspartate Amino Transf (AST/SGOT) 26 U/L (15-37) 17 U/L (15-37) Alanine Aminotransferase (ALT/SGPT) 122 U/L (12-78) 86 U/L (12-78) Alkaline Phosphatase 49 U/L (46-116) 56 U/L (46-116) Total Protein 5.2 G/DL (6.4-8.2) 5.8 G/DL (6.4-8.2) Albumin 2.0 G/DL (3.4-5.0) 2.1 G/DL (3.4-5.0) Globulin 3.2 g/dL 3.7 g/dL Albumin/Globulin Ratio 0.6 (1.0-2.7) 0.6 (1.0-2.7) Phosphorus Level 3.7 MG/DL (2.5-4.9) Magnesium Level 1.3 MG/DL (1.8-2.4) Total Creatine Kinase 93 U/L (26-308) Height (Feet): 5 Height (Inches): 4.00 Weight (Pounds): 168 Objective Physical Exam: Vitals: reviewed General Appearance: NAD HEENT: normocephalic, atraumatic ++ trach VENT Neck: non-tender, normal alignment Respiratory/Chest: normal breath sounds bilaterally Cardiovascular/Chest: normal peripheral pulses, normal rate Abdomen: normal bowel sounds, soft, nontender Extremities: normal range of motion Jordan Nguyen MD Jul 08, 2019 16:16
--- NOTE | 2019-07-08 17:35 | General Progress Note ---
Assessment/Plan Problem List: (1) Tracheostomy hemorrhage ICD Codes: J95.01 - Hemorrhage from tracheostomy stoma SNOMED: 88451905 (2) Tracheostomy complication ICD Codes: J95.00 - Unspecified tracheostomy complication SNOMED: 80405595 (3) Cocaine abuse ICD Codes: F14.10 - Cocaine abuse, uncomplicated SNOMED: 87969324 (4) Angioedema ICD Codes: T78.3XXA - Angioneurotic edema, initial encounter SNOMED: 60619743 Qualifiers: Qualified Codes: T78.3XXA - Angioneurotic edema, initial encounter (5) Hypertension ICD Codes: I10 - Essential (primary) hypertension SNOMED: 54110717 Qualifiers: Qualified Codes: I10 - Essential (primary) hypertension Status: stable, progressing Assessment/Plan: vent resp care monitor for bleeding, monitor labs pain rx wean sedation anxiolytics Subjective ROS Limited/Unobtainable: No Constitutional: Reports: malaise, weakness HEENT: Reports: no symptoms Cardiovascular: Reports: no symptoms Respiratory: Reports: cough, shortness of breath Gastrointestinal/Abdominal: Reports: no symptoms Genitourinary: Reports: no symptoms Neurologic/Psychiatric: Reports: anxiety, depressed Endocrine: Reports: no symptoms Hematologic/Lymphatic: Reports: anemia Allergies: Coded Allergies: No Known Allergies (Unverified , 06/29/19) All Systems: reviewed and negative except above Subjective ngt placed. tolerating feeds. remains on fentanyl drip. labs reviewed Objective Last 24 Hour Vital Signs Date Time Temp Pulse Resp B/P (MAP) Pulse Ox O2 Delivery O2 Flow Rate FiO2 07/08/19 17:20 82 21 30 07/08/19 17:00 88 20 128/66 (86) 98 07/08/19 17:00 24 Mechanical Ventilator 07/08/19 16:30 88 20 124/69 (87) 95 07/08/19 16:04 75 19 100 Mechanical Ventilator 30 95 24 30 07/08/19 16:00 30 07/08/19 16:00 20 Mechanical Ventilator 07/08/19 16:00 Mechanical Ventilator 07/08/19 16:00 98.0 78 21 158/90 (112) 100 07/08/19 16:00 73 07/08/19 15:30 74 21 130/83 (99) 100 07/08/19 15:00 71 16 134/84 (101) 100 07/08/19 15:00 24 Mechanical Ventilator 07/08/19 14:30 76 28 134/84 (101) 100 07/08/19 14:00 112 27 120/88 (99) 99 07/08/19 14:00 22 Mechanical Ventilator 07/08/19 13:30 87 19 114/100 (105) 99 07/08/19 13:00 24 Endotracheal Tube 07/08/19 13:00 78 20 124/84 (97) 100 07/08/19 12:48 74 20 30 30 07/08/19 12:30 76 21 133/83 (100) 100 07/08/19 12:00 30 07/08/19 12:00 97.9 83 20 136/89 (105) 100 07/08/19 12:00 Mechanical Ventilator 07/08/19 12:00 22 Mechanical Ventilator 07/08/19 12:00 75 07/08/19 11:34 139/96 07/08/19 11:30 79 13 139/96 (110) 100 07/08/19 11:29 80 24 100 Mechanical Ventilator 30 78 27 30 30 07/08/19 11:00 20 Mechanical Ventilator 07/08/19 11:00 71 23 130/80 (97) 100 07/08/19 10:30 74 22 135/83 (100) 100 07/08/19 10:00 79 22 117/80 (92) 100 07/08/19 10:00 22 Mechanical Ventilator 07/08/19 09:34 100 07/08/19 09:30 73 23 131/78 (95) 100 07/08/19 09:29 74 24 30 30 07/08/19 09:00 20 Mechanical Ventilator 07/08/19 09:00 79 24 121/81 (94) 100 07/08/19 08:30 80 26 131/78 (95) 100 07/08/19 08:00 Mechanical Ventilator 07/08/19 08:00 30 07/08/19 08:00 98.2 79 24 149/99 (116) 100 07/08/19 08:00 18 Mechanical Ventilator 07/08/19 08:00 73 07/08/19 07:30 75 23 114/79 (91) 98 07/08/19 07:20 78 24 30 30 07/08/19 07:00 18 Mechanical Ventilator 07/08/19 07:00 66 18 123/82 (96) 100 07/08/19 06:30 77 18 129/85 (100) 100 07/08/19 06:00 99 18 110/50 (70) 100 07/08/19 06:00 18 Mechanical Ventilator 07/08/19 05:30 76 18 137/90 (106) 100 07/08/19 05:27 68 18 Mechanical Ventilator 30 07/08/19 05:00 102 18 114/43 (66) 100 07/08/19 05:00 18 Mechanical Ventilator 07/08/19 04:34 18 Mechanical Ventilator 07/08/19 04:30 75 18 110/72 (85) 100 07/08/19 04:00 30 07/08/19 04:00 18 Mechanical Ventilator 07/08/19 04:00 Mechanical Ventilator 07/08/19 04:00 94 18 135/57 (83) 100 07/08/19 04:00 77 07/08/19 03:30 81 18 141/88 (105) 100 07/08/19 03:17 94 21 100 Mechanical Ventilator 30 86 19 30 07/08/19 03:00 97 18 101/51 (68) 100 07/08/19 03:00 18 Mechanical Ventilator 07/08/19 02:30 67 18 137/80 (99) 100 07/08/19 02:00 18 Mechanical Ventilator 07/08/19 02:00 107 18 105/48 (67) 100 07/08/19 01:30 70 18 126/78 (94) 100 07/08/19 01:00 76 18 141/73 (95) 100 07/08/19 01:00 16 Mechanical Ventilator 07/08/19 01:00 80 20 Mechanical Ventilator 30 07/08/19 00:30 71 18 118/75 (89) 100 07/08/19 00:00 80 18 140/70 (93) 100 07/08/19 00:00 Mechanical Ventilator 07/08/19 00:00 16 Mechanical Ventilator 07/08/19 00:00 30 07/08/19 00:00 65 07/07/19 23:30 68 18 144/82 (102) 100 07/07/19 23:17 85 19 100 Mechanical Ventilator 30 86 18 30 07/07/19 23:00 16 Mechanical Ventilator 07/07/19 23:00 80 18 144/80 (101) 100 07/07/19 22:30 78 18 145/88 (107) 100 07/07/19 22:00 18 Mechanical Ventilator 07/07/19 22:00 89 18 149/88 (108) 100 07/07/19 21:30 80 18 154/90 (111) 100 07/07/19 21:00 74 18 30 07/07/19 21:00 80 18 148/88 (108) 100 07/07/19 21:00 18 Mechanical Ventilator 07/07/19 20:30 80 18 150/97 (114) 100 07/07/19 20:00 84 07/07/19 20:00 Mechanical Ventilator 07/07/19 20:00 30 07/07/19 20:00 18 Mechanical Ventilator 07/07/19 20:00 80 18 164/97 (119) 100 07/07/19 19:32 80 20 100 Mechanical Ventilator 30 84 20 30 07/07/19 19:30 98.8 80 18 168/95 (119) 100 07/07/19 19:00 19 Mechanical Ventilator 30 07/07/19 19:00 78 18 152/99 (116) 100 07/07/19 18:30 78 18 166/97 (120) 100 07/07/19 18:23 19 Mechanical Ventilator 30 07/07/19 18:00 19 Mechanical Ventilator 30 07/07/19 18:00 74 18 159/97 (117) 100 Intake and Output 07/07/19 07/08/19 19:00 07:00 Intake Total 1262.75 ml 1752.5 ml Output Total 2500 ml 1750 ml Balance -1237.25 ml 2.5 ml Intake IV Total 1262.75 ml 1492.5 ml Tube Feeding 260 ml Output Urine Total 2500 ml 1750 ml Laboratory Tests 07/08/19 04:00: White Blood Count 13.1H, Red Blood Count 2.76L, Hemoglobin 8.6L, Hematocrit 26.4L, Mean Corpuscular Volume 96, Mean Corpuscular Hemoglobin 31.0, Mean Corpuscular Hemoglobin Concent 32.4, Red Cell Distribution Width 15.4H, Platelet Count 207, Mean Platelet Volume 8.2, Neutrophils (%) (Auto) 81.1H, Lymphocytes (%) (Auto) 8.3L, Monocytes (%) (Auto) 9.6, Eosinophils (%) (Auto) 0.4, Basophils (%) (Auto) 0.6, Sodium Level 140, Potassium Level 4.2, Chloride Level 110H, Carbon Dioxide Level 19L, Anion Gap 11, Blood Urea Nitrogen 16, Creatinine 1.5H, Estimat Glomerular Filtration Rate 42.9, Glucose Level 100, Calcium Level 8.0L, Total Bilirubin 0.5, Aspartate Amino Transf (AST/SGOT) 17, Alanine Aminotransferase (ALT/SGPT) 86H, Alkaline Phosphatase 56, Total Protein 5.8L, Albumin 2.1L, Globulin 3.7, Albumin/Globulin Ratio 0.6L Height (Feet): 5 Height (Inches): 4.00 Weight (Pounds): 168 Objective General Appearance: WD/WN, alert Neck: supple, other - trach midline Cardiovascular: normal rate, regular rhythm Respiratory/Chest: chest wall non-tender, lungs clear, normal breath sounds, no respiratory distress Abdomen: normal bowel sounds, non tender, soft, no organomegaly Edema: no edema noted Arm (L), no edema noted Arm (R), no edema noted Leg (L), no edema noted Leg (R), no edema noted Pedal (L), no edema noted Pedal (R), no edema noted Generalized Danis Markham MD Jul 08, 2019 17:35
[2019-07-08] MEDS ORDERED: Dyna-Hex 2% Top Sol 2oz TOPIC SCH (20:00)
[2019-07-08] MEDS: Epoetin Alfa-EPBX(ESRD on dialysis)4000 units/ml vial SUBQ SCH (21:17)
[2019-07-09] VITALS (36 sets, daily range): BP systolic 81–159; BP diastolic 17–122
[2019-07-09] MEDS: Albuterol/Ipratropium 3ml neb HHN SCH ×5 (03:01→18:40)
[2019-07-09] MEDS: fentaNYL Citrate 2,500 MCG in NS 200 ML IV SCH (03:35)
[2019-07-09 04:53] LABS: EOSINOPHILS % (AUTO) 0.9 % (0.0-3.0); HEMATOCRIT 24.6 % (37.0-47.0); HEMOGLOBIN 8.1 G/DL (12.0-16.0); LYMPHOCYTES % (AUTO) 8.1 % (20.0-45.0); MEAN CORPUSCULAR VOLUME 96 FL (80-99); MONOCYTES % (AUTO) 8.4 % (1.0-10.0); NEUTROPHILS % (AUTO) 81.6 % (45.0-75.0); PLATELET COUNT 219 K/UL (150-450); RED BLOOD COUNT 2.56 M/UL (4.20-5.40); WHITE BLOOD COUNT 12.1 K/UL (4.8-10.8)
[2019-07-09 05:12] LABS: ALANINE AMINOTRANSFERASE 57 U/L (12-78); ALBUMIN 1.9 G/DL (3.4-5.0); ALBUMIN/GLOBULIN RATIO 0.6 (1.0-2.7); ALKALINE PHOSPHATASE 54 U/L (46-116); ANION GAP 10 mmol/L (5-15); ASPARTATE AMINO TRANSFERASE 15 U/L (15-37); BILIRUBIN,TOTAL 0.3 MG/DL (0.2-1.0); BLOOD UREA NITROGEN 18 mg/dL (7-18); CARBON DIOXIDE 19 MMOL/L (21-32); CHLORIDE 114 MMOL/L (98-107); CREATININE 1.4 MG/DL (0.55-1.30); POTASSIUM 4.6 MMOL/L (3.5-5.1); SODIUM 143 MMOL/L (136-145)
[2019-07-09] MEDS: D5 1/2NS w/KCl 30mEq 1000ml 1,000 ML IV SCH (05:54)
[2019-07-09] MEDS: NovoLOG Insulin Flexpen SUBQ SCH ×4 (05:56→21:00)
--- NOTE | 2019-07-09 08:39 | Critical Care Progress Note ---
Assessment/Plan Assessment/Plan Angioedema Severe Hypotension Previous Hypertension Cocaine abuse s/p emergent trach Anemia secondary to blood loss acute respiratory failure leukocytosis, possible steroid related thrombocytopenia renal failure, acute on chronic toxic metabolic encephalopathy HIV+ PLAN post op care iv steroids -dc heme, renal evaluation noted and reviewed; all noted ID follow up reviewed vent support ---wean as able on trach care ? subacute; needs GT due to need to transition nutrition as tolerated monitor for bleeding; none so far ICU care support as able nutrition GI following and discussed monitor hemodynamics medications/laboratory data/nursing notes/ICU care reviewed in detail note reviewed and edited care discussed with RN and RT ICU time spent 42 minutes Critical Care - Subjective Interval Events: events noted vent and trach reviewed reviewed ICU care ROS Limited/Unobtainable: Yes Condition: critical EKG Rhythm: Sinus Rhythm Residuals: minimal Tube Feeding Tolerated: yes I&O: Intake and Output 07/08/19 07/09/19 19:00 07:00 Intake Total 2190.5 ml 1860 ml Output Total 1400 ml 980 ml Balance 790.5 ml 880 ml Intake IV Total 1590.5 ml 1260 ml Tube Feeding 600 ml 600 ml Output Urine Total 1400 ml 980 ml # Bowel Movements 3 Critical Care - Objective Last 24 Hour Vital Signs Date Time Temp Pulse Resp B/P (MAP) Pulse Ox O2 Delivery O2 Flow Rate FiO2 07/09/19 08:00 Mechanical Ventilator 07/09/19 08:00 30 07/09/19 07:30 76 18 138/78 (98) 98 07/09/19 07:14 73 18 98 Mechanical Ventilator 30 73 18 30 07/09/19 07:00 68 18 113/74 (87) 97 07/09/19 06:30 69 18 114/74 (87) 95 07/09/19 06:00 66 18 121/77 (92) 96 07/09/19 06:00 18 Mechanical Ventilator 30 07/09/19 05:30 71 18 116/74 (88) 98 07/09/19 05:13 75 18 30 07/09/19 05:00 18 Mechanical Ventilator 30 07/09/19 05:00 73 18 107/71 (83) 96 07/09/19 04:30 79 18 102/64 (77) 99 07/09/19 04:00 75 07/09/19 04:00 Mechanical Ventilator 07/09/19 04:00 30 07/09/19 04:00 98.6 78 18 111/68 (82) 99 07/09/19 04:00 18 Mechanical Ventilator 30 07/09/19 03:35 18 Mechanical Ventilator 30 07/09/19 03:30 79 18 115/67 (83) 98 07/09/19 03:00 84 23 128/78 (95) 97 07/09/19 03:00 64 18 100 Mechanical Ventilator 30 64 18 30 07/09/19 03:00 17 Mechanical Ventilator 30 07/09/19 02:30 70 18 108/69 (82) 98 07/09/19 02:00 17 Mechanical Ventilator 30 07/09/19 02:00 69 18 105/73 (84) 98 07/09/19 01:30 70 18 110/71 (84) 95 07/09/19 01:13 78 18 30 07/09/19 01:00 72 18 112/68 (83) 96 07/09/19 01:00 18 Mechanical Ventilator 30 07/09/19 00:30 82 18 107/64 (78) 97 07/09/19 00:00 Mechanical Ventilator 07/09/19 00:00 18 Mechanical Ventilator 30 07/09/19 00:00 77 07/09/19 00:00 30 07/09/19 00:00 98.7 77 18 127/73 (91) 98 07/08/19 23:30 78 18 117/71 (86) 98 07/08/19 23:05 77 19 100 Mechanical Ventilator 30 68 18 30 07/08/19 23:00 17 Mechanical Ventilator 30 07/08/19 23:00 83 18 112/63 (79) 100 07/08/19 22:30 83 18 117/71 (86) 100 07/08/19 22:00 77 18 117/70 (86) 100 07/08/19 22:00 18 Mechanical Ventilator 30 07/08/19 21:30 78 19 117/74 (88) 100 07/08/19 21:00 18 Mechanical Ventilator 30 07/08/19 21:00 70 18 127/77 (94) 100 07/08/19 20:30 84 20 30 07/08/19 20:30 94 21 134/85 (101) 97 07/08/19 20:00 75 07/08/19 20:00 73 18 134/90 (105) 97 07/08/19 20:00 30 07/08/19 20:00 Mechanical Ventilator 07/08/19 20:00 18 Mechanical Ventilator 30 07/08/19 19:30 98.5 67 18 126/76 (93) 97 07/08/19 19:25 67 18 100 Mechanical Ventilator 30 68 18 30 07/08/19 19:00 68 128/79 (95) 07/08/19 19:00 17 Mechanical Ventilator 30 07/08/19 18:30 70 20 127/79 (95) 100 07/08/19 18:00 17 Mechanical Ventilator 07/08/19 18:00 70 18 123/74 (90) 100 07/08/19 17:59 17 Mechanical Ventilator 07/08/19 17:30 80 22 127/79 (95) 100 07/08/19 17:20 82 21 30 07/08/19 17:00 88 20 128/66 (86) 98 07/08/19 17:00 24 Mechanical Ventilator 07/08/19 16:30 88 20 124/69 (87) 95 07/08/19 16:04 75 19 100 Mechanical Ventilator 30 95 24 30 07/08/19 16:00 30 07/08/19 16:00 20 Mechanical Ventilator 07/08/19 16:00 Mechanical Ventilator 07/08/19 16:00 98.0 78 21 158/90 (112) 100 07/08/19 16:00 73 07/08/19 15:30 74 21 130/83 (99) 100 07/08/19 15:00 71 16 134/84 (101) 100 07/08/19 15:00 24 Mechanical Ventilator 07/08/19 14:30 76 28 134/84 (101) 100 07/08/19 14:00 112 27 120/88 (99) 99 07/08/19 14:00 22 Mechanical Ventilator 07/08/19 13:30 87 19 114/100 (105) 99 07/08/19 13:00 24 Endotracheal Tube 07/08/19 13:00 78 20 124/84 (97) 100 07/08/19 12:48 74 20 30 30 07/08/19 12:30 76 21 133/83 (100) 100 07/08/19 12:00 30 07/08/19 12:00 97.9 83 20 136/89 (105) 100 07/08/19 12:00 Mechanical Ventilator 07/08/19 12:00 22 Mechanical Ventilator 07/08/19 12:00 75 07/08/19 11:34 139/96 07/08/19 11:30 79 13 139/96 (110) 100 07/08/19 11:29 80 24 100 Mechanical Ventilator 30 78 27 30 30 07/08/19 11:00 20 Mechanical Ventilator 07/08/19 11:00 71 23 130/80 (97) 100 07/08/19 10:30 74 22 135/83 (100) 100 07/08/19 10:00 79 22 117/80 (92) 100 07/08/19 10:00 22 Mechanical Ventilator 07/08/19 09:34 100 07/08/19 09:30 73 23 131/78 (95) 100 07/08/19 09:29 74 24 30 30 07/08/19 09:00 20 Mechanical Ventilator 07/08/19 09:00 79 24 121/81 (94) 100 Labs: Labs Test 07/07/19 07:00 07/07/19 09:14 07/08/19 04:00 07/09/19 03:00 Sodium Level 141 MMOL/L (136-145) 140 MMOL/L (136-145) 143 MMOL/L (136-145) Potassium Level 3.9 MMOL/L (3.5-5.1) 4.2 MMOL/L (3.5-5.1) 4.6 MMOL/L (3.5-5.1) Chloride Level 112 MMOL/L (98-107) 110 MMOL/L (98-107) 114 MMOL/L (98-107) Carbon Dioxide Level 18 MMOL/L (21-32) 19 MMOL/L (21-32) 19 MMOL/L (21-32) Anion Gap 11 mmol/L (5-15) 11 mmol/L (5-15) 10 mmol/L (5-15) Blood Urea Nitrogen 18 mg/dL (7-18) 16 mg/dL (7-18) 18 mg/dL (7-18) Creatinine 1.5 MG/DL (0.55-1.30) 1.5 MG/DL (0.55-1.30) 1.4 MG/DL (0.55-1.30) Estimat Glomerular Filtration Rate 42.9 mL/min (>60) 42.9 mL/min (>60) 46.5 mL/min (>60) Glucose Level 104 MG/DL (74-106) 100 MG/DL (74-106) 120 MG/DL (74-106) Calcium Level 8.1 MG/DL (8.5-10.1) 8.0 MG/DL (8.5-10.1) 8.0 MG/DL (8.5-10.1) Phosphorus Level 3.7 MG/DL (2.5-4.9) Magnesium Level 1.3 MG/DL (1.8-2.4) Total Creatine Kinase 93 U/L (26-308) White Blood Count 15.3 K/UL (4.8-10.8) 13.1 K/UL (4.8-10.8) 12.1 K/UL (4.8-10.8) Red Blood Count 2.78 M/UL (4.20-5.40) 2.76 M/UL (4.20-5.40) 2.56 M/UL (4.20-5.40) Hemoglobin 8.6 G/DL (12.0-16.0) 8.6 G/DL (12.0-16.0) 8.1 G/DL (12.0-16.0) Hematocrit 26.3 % (37.0-47.0) 26.4 % (37.0-47.0) 24.6 % (37.0-47.0) Mean Corpuscular Volume 95 FL (80-99) 96 FL (80-99) 96 FL (80-99) Mean Corpuscular Hemoglobin 30.9 PG (27.0-31.0) 31.0 PG (27.0-31.0) 31.4 PG (27.0-31.0) Mean Corpuscular Hemoglobin Concent 32.7 G/DL (32.0-36.0) 32.4 G/DL (32.0-36.0) 32.8 G/DL (32.0-36.0) Red Cell Distribution Width 15.1 % (11.6-14.8) 15.4 % (11.6-14.8) 15.0 % (11.6-14.8) Platelet Count 184 K/UL (150-450) 207 K/UL (150-450) 219 K/UL (150-450) Mean Platelet Volume 8.7 FL (6.5-10.1) 8.2 FL (6.5-10.1) 7.7 FL (6.5-10.1) Neutrophils (%) (Auto) 80.9 % (45.0-75.0) 81.1 % (45.0-75.0) 81.6 % (45.0-75.0) Lymphocytes (%) (Auto) 7.7 % (20.0-45.0) 8.3 % (20.0-45.0) 8.1 % (20.0-45.0) Monocytes (%) (Auto) 9.9 % (1.0-10.0) 9.6 % (1.0-10.0) 8.4 % (1.0-10.0) Eosinophils (%) (Auto) 0.7 % (0.0-3.0) 0.4 % (0.0-3.0) 0.9 % (0.0-3.0) Basophils (%) (Auto) 0.8 % (0.0-2.0) 0.6 % (0.0-2.0) 1.0 % (0.0-2.0) Total Bilirubin 0.5 MG/DL (0.2-1.0) 0.3 MG/DL (0.2-1.0) Aspartate Amino Transf (AST/SGOT) 17 U/L (15-37) 15 U/L (15-37) Alanine Aminotransferase (ALT/SGPT) 86 U/L (12-78) 57 U/L (12-78) Alkaline Phosphatase 56 U/L (46-116) 54 U/L (46-116) Total Protein 5.8 G/DL (6.4-8.2) 5.2 G/DL (6.4-8.2) Albumin 2.1 G/DL (3.4-5.0) 1.9 G/DL (3.4-5.0) Globulin 3.7 g/dL 3.3 g/dL Albumin/Globulin Ratio 0.6 (1.0-2.7) 0.6 (1.0-2.7) Lipase 389 U/L (73-393) Objective: WDWN on trach and vent reduced LOC reduced breath sounds bilaterally without rhonchi or wheeze [id number] without MRG NABS nontender no HSM no CCE nonfocal and alert NABS nontender no distention; NGT reviewed and edited Micro: Microbiology Date/Time Source Procedure Growth Status 07/07/19 04:00 Sputum Induced Gram Stain - Final Resulted 07/07/19 04:00 Sputum Culture - Preliminary Staphylococcus Aureus Gram Negative Bacillus 1 Resulted 07/07/19 04:00 Trachea Drainage Gram Stain - Final Resulted 07/07/19 04:00 Wound Culture - Preliminary Staphylococcus Aureus Gram Negative Bacillus 1 Resulted Accucheck: 136 Radames Ray MD Jul 09, 2019 08:39
[2019-07-09] MEDS: Solu-MEDROL 40mg Inj IVP SCH (08:44)
[2019-07-09] MEDS: Magnesium Oxide 400mg tab NG SCH ×3 (08:45→17:30)
[2019-07-09] MEDS: Atovaquone 750mg/5ml Susp NG SCH (08:45)
--- NOTE | 2019-07-09 09:08 | General Progress Note ---
Assessment/Plan Problem List: (1) Tracheostomy hemorrhage ICD Codes: J95.01 - Hemorrhage from tracheostomy stoma SNOMED: 16420850 (2) Tracheostomy complication ICD Codes: J95.00 - Unspecified tracheostomy complication SNOMED: 24826575 (3) Cocaine abuse ICD Codes: F14.10 - Cocaine abuse, uncomplicated SNOMED: 19198678 (4) Angioedema ICD Codes: T78.3XXA - Angioneurotic edema, initial encounter SNOMED: 37349354 Qualifiers: Qualified Codes: T78.3XXA - Angioneurotic edema, initial encounter (5) Hypertension ICD Codes: I10 - Essential (primary) hypertension SNOMED: 35523507 Qualifiers: Qualified Codes: I10 - Essential (primary) hypertension Status: stable, progressing Assessment/Plan: vent resp care monitor for bleeding, monitor labs pain rx wean sedation anxiolytics- try to wean added klonipin Subjective ROS Limited/Unobtainable: No Constitutional: Reports: malaise, weakness HEENT: Reports: no symptoms Cardiovascular: Reports: no symptoms Respiratory: Reports: cough, shortness of breath Gastrointestinal/Abdominal: Reports: no symptoms Genitourinary: Reports: no symptoms Neurologic/Psychiatric: Reports: no symptoms Endocrine: Reports: no symptoms Hematologic/Lymphatic: Reports: anemia Allergies: Coded Allergies: No Known Allergies (Unverified , 06/29/19) All Systems: reviewed and negative except above Subjective no events. remains on fentanyl drip. awake. minimal pain and sob. very anxious without drip Objective Last 24 Hour Vital Signs Date Time Temp Pulse Resp B/P (MAP) Pulse Ox O2 Delivery O2 Flow Rate FiO2 07/09/19 08:30 80 19 125/71 (89) 96 07/09/19 08:00 Mechanical Ventilator 07/09/19 08:00 30 07/09/19 08:00 98.0 84 19 114/63 (80) 95 07/09/19 07:30 76 18 138/78 (98) 98 07/09/19 07:14 73 18 98 Mechanical Ventilator 30 73 18 30 07/09/19 07:00 68 18 113/74 (87) 97 07/09/19 06:30 69 18 114/74 (87) 95 07/09/19 06:00 66 18 121/77 (92) 96 07/09/19 06:00 18 Mechanical Ventilator 30 07/09/19 05:30 71 18 116/74 (88) 98 07/09/19 05:13 75 18 30 07/09/19 05:00 18 Mechanical Ventilator 30 07/09/19 05:00 73 18 107/71 (83) 96 07/09/19 04:30 79 18 102/64 (77) 99 07/09/19 04:00 75 07/09/19 04:00 Mechanical Ventilator 07/09/19 04:00 30 07/09/19 04:00 98.6 78 18 111/68 (82) 99 07/09/19 04:00 18 Mechanical Ventilator 30 07/09/19 03:35 18 Mechanical Ventilator 30 07/09/19 03:30 79 18 115/67 (83) 98 07/09/19 03:00 84 23 128/78 (95) 97 07/09/19 03:00 64 18 100 Mechanical Ventilator 30 64 18 30 07/09/19 03:00 17 Mechanical Ventilator 30 07/09/19 02:30 70 18 108/69 (82) 98 07/09/19 02:00 17 Mechanical Ventilator 30 07/09/19 02:00 69 18 105/73 (84) 98 07/09/19 01:30 70 18 110/71 (84) 95 07/09/19 01:13 78 18 30 07/09/19 01:00 72 18 112/68 (83) 96 07/09/19 01:00 18 Mechanical Ventilator 30 07/09/19 00:30 82 18 107/64 (78) 97 07/09/19 00:00 Mechanical Ventilator 07/09/19 00:00 18 Mechanical Ventilator 30 07/09/19 00:00 77 07/09/19 00:00 30 07/09/19 00:00 98.7 77 18 127/73 (91) 98 07/08/19 23:30 78 18 117/71 (86) 98 07/08/19 23:05 77 19 100 Mechanical Ventilator 30 68 18 30 07/08/19 23:00 17 Mechanical Ventilator 30 07/08/19 23:00 83 18 112/63 (79) 100 07/08/19 22:30 83 18 117/71 (86) 100 07/08/19 22:00 77 18 117/70 (86) 100 07/08/19 22:00 18 Mechanical Ventilator 30 07/08/19 21:30 78 19 117/74 (88) 100 07/08/19 21:00 18 Mechanical Ventilator 30 07/08/19 21:00 70 18 127/77 (94) 100 07/08/19 20:30 84 20 30 07/08/19 20:30 94 21 134/85 (101) 97 07/08/19 20:00 75 07/08/19 20:00 73 18 134/90 (105) 97 07/08/19 20:00 30 07/08/19 20:00 Mechanical Ventilator 07/08/19 20:00 18 Mechanical Ventilator 30 07/08/19 19:30 98.5 67 18 126/76 (93) 97 07/08/19 19:25 67 18 100 Mechanical Ventilator 30 68 18 30 07/08/19 19:00 68 128/79 (95) 07/08/19 19:00 17 Mechanical Ventilator 30 07/08/19 18:30 70 20 127/79 (95) 100 07/08/19 18:00 17 Mechanical Ventilator 07/08/19 18:00 70 18 123/74 (90) 100 07/08/19 17:59 17 Mechanical Ventilator 07/08/19 17:30 80 22 127/79 (95) 100 07/08/19 17:20 82 21 30 07/08/19 17:00 88 20 128/66 (86) 98 07/08/19 17:00 24 Mechanical Ventilator 07/08/19 16:30 88 20 124/69 (87) 95 07/08/19 16:04 75 19 100 Mechanical Ventilator 30 95 24 30 07/08/19 16:00 30 07/08/19 16:00 20 Mechanical Ventilator 07/08/19 16:00 Mechanical Ventilator 07/08/19 16:00 98.0 78 21 158/90 (112) 100 07/08/19 16:00 73 07/08/19 15:30 74 21 130/83 (99) 100 07/08/19 15:00 71 16 134/84 (101) 100 07/08/19 15:00 24 Mechanical Ventilator 07/08/19 14:30 76 28 134/84 (101) 100 07/08/19 14:00 112 27 120/88 (99) 99 07/08/19 14:00 22 Mechanical Ventilator 07/08/19 13:30 87 19 114/100 (105) 99 07/08/19 13:00 24 Endotracheal Tube 07/08/19 13:00 78 20 124/84 (97) 100 07/08/19 12:48 74 20 30 30 07/08/19 12:30 76 21 133/83 (100) 100 07/08/19 12:00 30 07/08/19 12:00 97.9 83 20 136/89 (105) 100 07/08/19 12:00 Mechanical Ventilator 07/08/19 12:00 22 Mechanical Ventilator 07/08/19 12:00 75 07/08/19 11:34 139/96 07/08/19 11:30 79 13 139/96 (110) 100 07/08/19 11:29 80 24 100 Mechanical Ventilator 30 78 27 30 30 07/08/19 11:00 20 Mechanical Ventilator 07/08/19 11:00 71 23 130/80 (97) 100 07/08/19 10:30 74 22 135/83 (100) 100 07/08/19 10:00 79 22 117/80 (92) 100 07/08/19 10:00 22 Mechanical Ventilator 07/08/19 09:34 100 07/08/19 09:30 73 23 131/78 (95) 100 07/08/19 09:29 74 24 30 30 Intake and Output 07/08/19 07/09/19 19:00 07:00 Intake Total 2190.5 ml 1860 ml Output Total 1400 ml 980 ml Balance 790.5 ml 880 ml Intake IV Total 1590.5 ml 1260 ml Tube Feeding 600 ml 600 ml Output Urine Total 1400 ml 980 ml # Bowel Movements 3 Laboratory Tests 07/09/19 03:00: White Blood Count 12.1H, Red Blood Count 2.56L, Hemoglobin 8.1L, Hematocrit 24.6L, Mean Corpuscular Volume 96, Mean Corpuscular Hemoglobin 31.4H, Mean Corpuscular Hemoglobin Concent 32.8, Red Cell Distribution Width 15.0H, Platelet Count 219, Mean Platelet Volume 7.7, Neutrophils (%) (Auto) 81.6H, Lymphocytes (%) (Auto) 8.1L, Monocytes (%) (Auto) 8.4, Eosinophils (%) (Auto) 0.9, Basophils (%) (Auto) 1.0, Sodium Level 143, Potassium Level 4.6, Chloride Level 114H, Carbon Dioxide Level 19L, Anion Gap 10, Blood Urea Nitrogen 18, Creatinine 1.4H, Estimat Glomerular Filtration Rate 46.5, Glucose Level 120H, Calcium Level 8.0L, Total Bilirubin 0.3, Aspartate Amino Transf (AST/SGOT) 15, Alanine Aminotransferase (ALT/SGPT) 57, Alkaline Phosphatase 54, Total Protein 5.2L, Albumin 1.9L, Globulin 3.3, Albumin/Globulin Ratio 0.6L, Lipase 389 Height (Feet): 5 Height (Inches): 4.00 Weight (Pounds): 173 Objective General Appearance: WD/WN, alert Neck: supple, other - trach midline Cardiovascular: normal rate, regular rhythm Respiratory/Chest: chest wall non-tender, lungs clear, normal breath sounds, no respiratory distress Abdomen: normal bowel sounds, non tender, soft, no organomegaly Edema: no edema noted Arm (L), no edema noted Arm (R), no edema noted Leg (L), no edema noted Leg (R), no edema noted Pedal (L), no edema noted Pedal (R), no edema noted Generalized Danis Markham MD Jul 09, 2019 09:08
[2019-07-09] MEDS ORDERED: LORazepam Inj 2mg/ml 1ml IV PRN (09:15)
[2019-07-09] MEDS: Thiamine HCl 100 MG in D5W 55 ML IVPB SCH (09:57)
[2019-07-09] MEDS ORDERED: NS 275ml ONE (10:10)
--- NOTE | 2019-07-09 10:16 | Infectious Diseases Prog Note ---
Assessment/Plan Assessment/Plan A 1. leucocytosis improving 2. angioedema 3. respiratory failure s/p emergent tracheostomy 4. HIV, AIDS 5. renal failure improving 6. tracheostomy site infection P 1. Continue PCP Prophylaxis with Mepron 2. Continue Cefepime & IV Vancomycin Subjective ROS Limited/Unobtainable: Yes Respiratory: Reports: other - off of ventilator Allergies: Coded Allergies: No Known Allergies (Unverified , 06/29/19) Objective Vital Signs Last 24 Hour Vital Signs Date Time Temp Pulse Resp B/P (MAP) Pulse Ox O2 Delivery O2 Flow Rate FiO2 07/09/19 10:00 99 29 118/72 (87) 95 07/09/19 09:30 91 21 124/70 (88) 93 07/09/19 09:08 100 07/09/19 09:08 83 18 Trach Collar 8.0 30 30 07/09/19 09:00 81 22 128/77 (94) 97 07/09/19 08:30 80 19 125/71 (89) 96 07/09/19 08:00 Mechanical Ventilator 07/09/19 08:00 30 07/09/19 08:00 84 07/09/19 08:00 98.0 84 19 114/63 (80) 95 07/09/19 07:30 76 18 138/78 (98) 98 07/09/19 07:14 73 18 98 Mechanical Ventilator 30 73 18 30 07/09/19 07:00 68 18 113/74 (87) 97 07/09/19 06:30 69 18 114/74 (87) 95 07/09/19 06:00 66 18 121/77 (92) 96 07/09/19 06:00 18 Mechanical Ventilator 30 07/09/19 05:30 71 18 116/74 (88) 98 07/09/19 05:13 75 18 30 07/09/19 05:00 18 Mechanical Ventilator 30 07/09/19 05:00 73 18 107/71 (83) 96 07/09/19 04:30 79 18 102/64 (77) 99 07/09/19 04:00 75 07/09/19 04:00 Mechanical Ventilator 07/09/19 04:00 30 07/09/19 04:00 98.6 78 18 111/68 (82) 99 07/09/19 04:00 18 Mechanical Ventilator 30 07/09/19 03:35 18 Mechanical Ventilator 30 07/09/19 03:30 79 18 115/67 (83) 98 07/09/19 03:00 84 23 128/78 (95) 97 07/09/19 03:00 64 18 100 Mechanical Ventilator 30 64 18 30 07/09/19 03:00 17 Mechanical Ventilator 30 07/09/19 02:30 70 18 108/69 (82) 98 07/09/19 02:00 17 Mechanical Ventilator 30 07/09/19 02:00 69 18 105/73 (84) 98 07/09/19 01:30 70 18 110/71 (84) 95 07/09/19 01:13 78 18 30 07/09/19 01:00 72 18 112/68 (83) 96 07/09/19 01:00 18 Mechanical Ventilator 30 07/09/19 00:30 82 18 107/64 (78) 97 07/09/19 00:00 Mechanical Ventilator 07/09/19 00:00 18 Mechanical Ventilator 30 07/09/19 00:00 77 07/09/19 00:00 30 07/09/19 00:00 98.7 77 18 127/73 (91) 98 07/08/19 23:30 78 18 117/71 (86) 98 07/08/19 23:05 77 19 100 Mechanical Ventilator 30 68 18 30 07/08/19 23:00 17 Mechanical Ventilator 30 07/08/19 23:00 83 18 112/63 (79) 100 07/08/19 22:30 83 18 117/71 (86) 100 07/08/19 22:00 77 18 117/70 (86) 100 07/08/19 22:00 18 Mechanical Ventilator 30 07/08/19 21:30 78 19 117/74 (88) 100 07/08/19 21:00 18 Mechanical Ventilator 30 07/08/19 21:00 70 18 127/77 (94) 100 07/08/19 20:30 84 20 30 07/08/19 20:30 94 21 134/85 (101) 97 07/08/19 20:00 75 07/08/19 20:00 73 18 134/90 (105) 97 07/08/19 20:00 30 07/08/19 20:00 Mechanical Ventilator 07/08/19 20:00 18 Mechanical Ventilator 30 07/08/19 19:30 98.5 67 18 126/76 (93) 97 07/08/19 19:25 67 18 100 Mechanical Ventilator 30 68 18 30 07/08/19 19:00 68 128/79 (95) 07/08/19 19:00 17 Mechanical Ventilator 30 07/08/19 18:30 70 20 127/79 (95) 100 07/08/19 18:00 17 Mechanical Ventilator 07/08/19 18:00 70 18 123/74 (90) 100 07/08/19 17:59 17 Mechanical Ventilator 07/08/19 17:30 80 22 127/79 (95) 100 07/08/19 17:20 82 21 30 07/08/19 17:00 88 20 128/66 (86) 98 07/08/19 17:00 24 Mechanical Ventilator 07/08/19 16:30 88 20 124/69 (87) 95 07/08/19 16:04 75 19 100 Mechanical Ventilator 30 95 24 30 07/08/19 16:00 30 07/08/19 16:00 20 Mechanical Ventilator 07/08/19 16:00 Mechanical Ventilator 07/08/19 16:00 98.0 78 21 158/90 (112) 100 07/08/19 16:00 73 07/08/19 15:30 74 21 130/83 (99) 100 07/08/19 15:00 71 16 134/84 (101) 100 07/08/19 15:00 24 Mechanical Ventilator 07/08/19 14:30 76 28 134/84 (101) 100 07/08/19 14:00 112 27 120/88 (99) 99 07/08/19 14:00 22 Mechanical Ventilator 07/08/19 13:30 87 19 114/100 (105) 99 07/08/19 13:00 24 Endotracheal Tube 07/08/19 13:00 78 20 124/84 (97) 100 07/08/19 12:48 74 20 30 30 07/08/19 12:30 76 21 133/83 (100) 100 07/08/19 12:00 30 07/08/19 12:00 97.9 83 20 136/89 (105) 100 07/08/19 12:00 Mechanical Ventilator 07/08/19 12:00 22 Mechanical Ventilator 07/08/19 12:00 75 07/08/19 11:34 139/96 07/08/19 11:30 79 13 139/96 (110) 100 07/08/19 11:29 80 24 100 Mechanical Ventilator 30 78 27 30 30 07/08/19 11:00 20 Mechanical Ventilator 07/08/19 11:00 71 23 130/80 (97) 100 07/08/19 10:30 74 22 135/83 (100) 100 Height (Feet): 5 Height (Inches): 4.00 Weight (Pounds): 173 General Appearance: no acute distress HEENT: status post trach Respiratory/Chest: lungs clear, other - on T bar Cardiovascular: normal rate Abdomen: soft, non tender, other - NG tube Extremities: no edema Neurologic/Psychiatric: other - sleeping Microbiology Date/Time Source Procedure Growth Status 07/07/19 04:00 Sputum Induced Gram Stain - Final Resulted 07/07/19 04:00 Sputum Culture - Preliminary Staphylococcus Aureus Gram Negative Bacillus 1 Resulted 07/07/19 04:00 Trachea Drainage Gram Stain - Final Resulted 07/07/19 04:00 Wound Culture - Preliminary Staphylococcus Aureus Gram Negative Bacillus 1 Resulted Laboratory Tests Test 07/09/19 03:00 White Blood Count 12.1 K/UL (4.8-10.8) H Red Blood Count 2.56 M/UL (4.20-5.40) L Hemoglobin 8.1 G/DL (12.0-16.0) L Hematocrit 24.6 % (37.0-47.0) L Mean Corpuscular Volume 96 FL (80-99) Mean Corpuscular Hemoglobin 31.4 PG (27.0-31.0) H Mean Corpuscular Hemoglobin Concent 32.8 G/DL (32.0-36.0) Red Cell Distribution Width 15.0 % (11.6-14.8) H Platelet Count 219 K/UL (150-450) Mean Platelet Volume 7.7 FL (6.5-10.1) Neutrophils (%) (Auto) 81.6 % (45.0-75.0) H Lymphocytes (%) (Auto) 8.1 % (20.0-45.0) L Monocytes (%) (Auto) 8.4 % (1.0-10.0) Eosinophils (%) (Auto) 0.9 % (0.0-3.0) Basophils (%) (Auto) 1.0 % (0.0-2.0) Sodium Level 143 MMOL/L (136-145) Potassium Level 4.6 MMOL/L (3.5-5.1) Chloride Level 114 MMOL/L (98-107) H Carbon Dioxide Level 19 MMOL/L (21-32) L Anion Gap 10 mmol/L (5-15) Blood Urea Nitrogen 18 mg/dL (7-18) Creatinine 1.4 MG/DL (0.55-1.30) H Estimat Glomerular Filtration Rate 46.5 mL/min (>60) Glucose Level 120 MG/DL (74-106) H Calcium Level 8.0 MG/DL (8.5-10.1) L Total Bilirubin 0.3 MG/DL (0.2-1.0) Aspartate Amino Transf (AST/SGOT) 15 U/L (15-37) Alanine Aminotransferase (ALT/SGPT) 57 U/L (12-78) Alkaline Phosphatase 54 U/L (46-116) Total Protein 5.2 G/DL (6.4-8.2) L Albumin 1.9 G/DL (3.4-5.0) L Globulin 3.3 g/dL Albumin/Globulin Ratio 0.6 (1.0-2.7) L Lipase 389 U/L (73-393) Current Medications Medications (Trade) Dose Ordered Sig/Dmitri Route PRN Reason Start Time Stop Time Status Last Admin Dose Admin Acetaminophen (Tylenol) 650 mg Q4H PRN RECTAL FEVER 06/29/19 11:01 07/29/19 11:00 Albuterol/ Ipratropium (Albuterol/ Ipratropium) 3 ml Q4HRT HHN 07/04/19 20:55 07/09/19 20:54 07/09/19 07:14 Atovaquone (Mepron Susp) 1,500 mg DAILY NG 07/07/19 12:30 08/06/19 12:29 07/09/19 08:45 Cefepime HCl 2 gm/ Dextrose 110 ml @ 220 mls/hr Q24H IV 07/07/19 12:00 07/14/19 11:59 07/08/19 11:20 Chlorhexidine Gluconate (Lynn-Hex 2%) 1 applic DAILY@2000 TOPIC 07/08/19 20:00 08/07/19 19:59 07/08/19 21:17 Clonazepam (KlonoPIN) 1 mg Q6H PRN ORAL For Anxiety 07/09/19 09:15 07/16/19 09:14 Clonidine HCl (Catapres TTS-1) 1 patch QWEEK TDERMAL 07/04/19 15:00 08/03/19 14:59 07/04/19 15:47 Dextrose (Dextrose 50%) 25 ml Q30M PRN IV Hypoglycemia 06/30/19 15:00 07/30/19 14:59 Dextrose (Dextrose 50%) 50 ml Q30M PRN IV Hypoglycemia 06/30/19 15:00 07/30/19 14:59 Dextrose/ Electrolytes 1,000 ml @ 100 mls/hr Q10H IV 07/06/19 13:30 08/05/19 13:29 07/09/19 05:54 Diphenhydramine HCl (Benadryl) 25 mg Q6H PRN IVP Muscle Spasm 06/29/19 11:01 07/29/19 11:00 07/08/19 16:12 Epinephrine 1 mg/ Dextrose 250 ml @ 0 mls/hr Q24H IV 06/29/19 16:00 07/29/19 15:59 Epoetin Eric (Epoetin Eric(ESRD on dialysis)) 8,000 unit MON-MON-MON SUBQ 07/01/19 21:00 07/31/19 20:59 07/08/19 21:17 Famotidine (Pepcid I.v.) 20 mg Q12HR IVP 06/30/19 21:00 07/30/19 20:59 07/09/19 08:44 Fentanyl Citrate 2500 mcg/Sodium Chloride 250 ml @ 0 mls/hr Q24H IV 06/29/19 12:30 07/13/19 12:29 07/09/19 03:35 Heparin Sodium/ Sodium Chloride (Heparin 1000 units/500ml Premix) 1,000 unit ONCE PRN IV PICC PLACEMENT 07/08/19 09:15 07/10/19 23:59 Hydralazine HCl (Apresoline) 10 mg Q2H PRN IV For High Blood Pressure 07/02/19 21:15 08/01/19 21:14 07/04/19 18:32 Hydromorphone HCl (Dilaudid) 2 mg Q3H PRN IVP SEVERE BREAKTHROUGH PAIN 07/06/19 13:45 07/13/19 13:44 07/09/19 08:44 Insulin Aspart (NovoLOG) BEFORE MEALS AND HS SUBQ 06/30/19 16:30 07/30/19 16:29 07/09/19 05:56 Lidocaine HCl (Xylocaine 1% 30ml) 30 ml ONCE PRN INJ PICC PLACEMENT 07/08/19 09:15 07/10/19 23:59 Lorazepam (Ativan 2mg/ml 1ml) 2 mg Q4H PRN IV For Anxiety 07/09/19 09:15 07/10/19 09:14 Magnesium Oxide (Mag-Ox 400mg) 400 mg THREE TIMES A DAY NG 07/07/19 13:00 08/06/19 12:59 07/09/19 08:45 Methylprednisolone Sodium Succinate (Solu-MEDROL) 40 mg DAILY IVP 07/05/19 09:00 07/29/19 13:59 07/09/19 08:44 Metoclopramide HCl (Reglan) 10 mg Q6H PRN IVP Nausea & Vomiting 06/29/19 11:01 07/29/19 11:00 Norepinephrine Bitartrate 8 mg/ Dextrose 508 ml @ 0 mls/hr Q24H IV 06/29/19 12:30 07/29/19 12:29 06/30/19 11:42 Ondansetron HCl (Zofran) 4 mg Q6H PRN IVP Nausea & Vomiting 06/29/19 11:01 07/29/19 11:00 Thiamine HCl 100 mg/Dextrose 56 ml @ 112 mls/hr DAILY IVPB 07/03/19 11:00 08/02/19 10:59 07/09/19 09:57 Vancomycin HCl (Vanco rx to dose) 1 ea DAILY PRN MISC Per rx protocol 07/08/19 12:00 08/07/19 11:59 Vasopressin 100 units/Sodium Chloride 100 ml @ 2.4 mls/hr Q24H IV 06/29/19 14:15 07/29/19 14:14 06/30/19 15:40 Kwaku Garcia MD Jul 09, 2019 10:16
--- NOTE | 2019-07-09 10:44 | Diagnostic Imaging Report ---
Indication: Dyspnea Comparison: 06/30/2019 A single view chest radiograph was obtained. Findings: No definite infiltrate or pulmonary vascular congestion identified. Tracheostomy noted. There is a feeding tube demonstrated the tip of which is not visualized but somewhat within the mid to distal stomach. The heart is normal in size. The aorta is mildly enlarged consistent with atherosclerotic vascular disease. The bones are osteopenic. Impression: No acute disease
--- NOTE | 2019-07-09 10:44 | Diagnostic Imaging Report ---
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 The right upper extremity was prepped with alcohol. All elements of maximal sterile barrier technique were followed including usage of a cap, mask, sterile gown, sterile gloves, hand hygiene and a large sterile sheet. Sonographic evaluation of the upper extremity was performed demonstrating a patent and compressible basilic vein. Access was obtained under real-time ultrasound guidance (with utilization of sterile gel and sterile probe cover) and digital image was saved and archived. An .018 wire was introduced. Needle exchanged for a 5 [place] peel-away sheath. Measurements were obtained. A 5 [place] dual-lumen Power PICC line catheter was cut to 35 cm and introduced over the wire. Peel-away sheath and wire were removed.Catheter was secured to the skin using 2-0 Prolene suture. Both ports aspirate and flush easily. Post procedure chest x-ray demonstrates good position of the PICC line catheter within the SVC. Impression: Successful placement of an upper extremity PICC line catheter
[2019-07-09] MEDS: Cefepime 2gm/D5W 110ml IV SCH ×2 (12:26)
--- NOTE | 2019-07-09 12:44 | Cardiac Electrophysiology PN ---
Assessment/Plan Assessment/Plan 1. Angioedema, s/p emergency tracheostomy on the Vent Off the vent since this am 2. S/P Hypotension, 3. Hypertension. On Clonidine patch weekly 4. Cocaine abuse 5. ARF. Last HD and no further . Left femoral Jeison removed 6. Anemia partial blood loss during tracheostomy DW RN Subjective Subjective Off the vent today, on T tube and tracheostomy in ICU. Off Pressors. In SR . Objective Last 24 Hour Vital Signs Date Time Temp Pulse Resp B/P (MAP) Pulse Ox O2 Delivery O2 Flow Rate FiO2 07/09/19 11:26 128/82 07/09/19 11:00 79 27 128/82 (97) 94 07/09/19 10:30 80 25 125/81 (96) 95 07/09/19 10:00 99 29 118/72 (87) 95 07/09/19 09:30 91 21 124/70 (88) 93 07/09/19 09:08 100 07/09/19 09:08 83 18 Trach Collar 8.0 30 30 07/09/19 09:00 81 22 128/77 (94) 97 07/09/19 08:30 80 19 125/71 (89) 96 07/09/19 08:00 Mechanical Ventilator 07/09/19 08:00 30 07/09/19 08:00 84 07/09/19 08:00 98.0 84 19 114/63 (80) 95 07/09/19 07:30 76 18 138/78 (98) 98 07/09/19 07:14 73 18 98 Mechanical Ventilator 30 73 18 30 07/09/19 07:00 68 18 113/74 (87) 97 07/09/19 06:30 69 18 114/74 (87) 95 07/09/19 06:00 66 18 121/77 (92) 96 07/09/19 06:00 18 Mechanical Ventilator 30 07/09/19 05:30 71 18 116/74 (88) 98 07/09/19 05:13 75 18 30 07/09/19 05:00 18 Mechanical Ventilator 30 07/09/19 05:00 73 18 107/71 (83) 96 07/09/19 04:30 79 18 102/64 (77) 99 07/09/19 04:00 75 07/09/19 04:00 Mechanical Ventilator 07/09/19 04:00 30 07/09/19 04:00 98.6 78 18 111/68 (82) 99 07/09/19 04:00 18 Mechanical Ventilator 30 07/09/19 03:35 18 Mechanical Ventilator 30 07/09/19 03:30 79 18 115/67 (83) 98 07/09/19 03:00 84 23 128/78 (95) 97 07/09/19 03:00 64 18 100 Mechanical Ventilator 30 64 18 30 07/09/19 03:00 17 Mechanical Ventilator 30 07/09/19 02:30 70 18 108/69 (82) 98 07/09/19 02:00 17 Mechanical Ventilator 30 07/09/19 02:00 69 18 105/73 (84) 98 07/09/19 01:30 70 18 110/71 (84) 95 07/09/19 01:13 78 18 30 07/09/19 01:00 72 18 112/68 (83) 96 07/09/19 01:00 18 Mechanical Ventilator 30 07/09/19 00:30 82 18 107/64 (78) 97 07/09/19 00:00 Mechanical Ventilator 07/09/19 00:00 18 Mechanical Ventilator 30 07/09/19 00:00 77 07/09/19 00:00 30 07/09/19 00:00 98.7 77 18 127/73 (91) 98 07/08/19 23:30 78 18 117/71 (86) 98 07/08/19 23:05 77 19 100 Mechanical Ventilator 30 68 18 30 07/08/19 23:00 17 Mechanical Ventilator 30 07/08/19 23:00 83 18 112/63 (79) 100 07/08/19 22:30 83 18 117/71 (86) 100 07/08/19 22:00 77 18 117/70 (86) 100 07/08/19 22:00 18 Mechanical Ventilator 30 07/08/19 21:30 78 19 117/74 (88) 100 07/08/19 21:00 18 Mechanical Ventilator 30 07/08/19 21:00 70 18 127/77 (94) 100 07/08/19 20:30 84 20 30 07/08/19 20:30 94 21 134/85 (101) 97 07/08/19 20:00 75 07/08/19 20:00 73 18 134/90 (105) 97 07/08/19 20:00 30 07/08/19 20:00 Mechanical Ventilator 07/08/19 20:00 18 Mechanical Ventilator 30 07/08/19 19:30 98.5 67 18 126/76 (93) 97 07/08/19 19:25 67 18 100 Mechanical Ventilator 30 68 18 30 07/08/19 19:00 68 128/79 (95) 07/08/19 19:00 17 Mechanical Ventilator 30 07/08/19 18:30 70 20 127/79 (95) 100 07/08/19 18:00 17 Mechanical Ventilator 07/08/19 18:00 70 18 123/74 (90) 100 07/08/19 17:59 17 Mechanical Ventilator 07/08/19 17:30 80 22 127/79 (95) 100 07/08/19 17:20 82 21 30 07/08/19 17:00 88 20 128/66 (86) 98 07/08/19 17:00 24 Mechanical Ventilator 07/08/19 16:30 88 20 124/69 (87) 95 07/08/19 16:04 75 19 100 Mechanical Ventilator 30 95 24 30 07/08/19 16:00 30 07/08/19 16:00 20 Mechanical Ventilator 07/08/19 16:00 Mechanical Ventilator 07/08/19 16:00 98.0 78 21 158/90 (112) 100 07/08/19 16:00 73 07/08/19 15:30 74 21 130/83 (99) 100 07/08/19 15:00 71 16 134/84 (101) 100 07/08/19 15:00 24 Mechanical Ventilator 07/08/19 14:30 76 28 134/84 (101) 100 07/08/19 14:00 112 27 120/88 (99) 99 07/08/19 14:00 22 Mechanical Ventilator 07/08/19 13:30 87 19 114/100 (105) 99 07/08/19 13:00 24 Endotracheal Tube 07/08/19 13:00 78 20 124/84 (97) 100 07/08/19 12:48 74 20 30 30 Intake and Output 07/08/19 07/09/19 19:00 07:00 Intake Total 2190.5 ml 1860 ml Output Total 1400 ml 980 ml Balance 790.5 ml 880 ml Intake IV Total 1590.5 ml 1260 ml Tube Feeding 600 ml 600 ml Output Urine Total 1400 ml 980 ml # Bowel Movements 3 Laboratory Tests Test 07/09/19 03:00 07/09/19 12:14 White Blood Count 12.1 K/UL (4.8-10.8) H Red Blood Count 2.56 M/UL (4.20-5.40) L Hemoglobin 8.1 G/DL (12.0-16.0) L Hematocrit 24.6 % (37.0-47.0) L Mean Corpuscular Volume 96 FL (80-99) Mean Corpuscular Hemoglobin 31.4 PG (27.0-31.0) H Mean Corpuscular Hemoglobin Concent 32.8 G/DL (32.0-36.0) Red Cell Distribution Width 15.0 % (11.6-14.8) H Platelet Count 219 K/UL (150-450) Mean Platelet Volume 7.7 FL (6.5-10.1) Neutrophils (%) (Auto) 81.6 % (45.0-75.0) H Lymphocytes (%) (Auto) 8.1 % (20.0-45.0) L Monocytes (%) (Auto) 8.4 % (1.0-10.0) Eosinophils (%) (Auto) 0.9 % (0.0-3.0) Basophils (%) (Auto) 1.0 % (0.0-2.0) Sodium Level 143 MMOL/L (136-145) Potassium Level 4.6 MMOL/L (3.5-5.1) Chloride Level 114 MMOL/L (98-107) H Carbon Dioxide Level 19 MMOL/L (21-32) L Anion Gap 10 mmol/L (5-15) Blood Urea Nitrogen 18 mg/dL (7-18) Creatinine 1.4 MG/DL (0.55-1.30) H Estimat Glomerular Filtration Rate 46.5 mL/min (>60) Glucose Level 120 MG/DL (74-106) H Calcium Level 8.0 MG/DL (8.5-10.1) L Total Bilirubin 0.3 MG/DL (0.2-1.0) Aspartate Amino Transf (AST/SGOT) 15 U/L (15-37) Alanine Aminotransferase (ALT/SGPT) 57 U/L (12-78) Alkaline Phosphatase 54 U/L (46-116) Total Protein 5.2 G/DL (6.4-8.2) L Albumin 1.9 G/DL (3.4-5.0) L Globulin 3.3 g/dL Albumin/Globulin Ratio 0.6 (1.0-2.7) L Lipase 389 U/L (73-393) Arterial Blood pH 7.337 (7.350-7.450) Arterial Blood Partial Pressure CO2 32.4 mmHg (35.0-45.0) L Arterial Blood Partial Pressure O2 87.7 mmHg (75.0-100.0) Arterial Blood HCO3 17.0 mmol/L (22.0-26.0) *L Arterial Blood Oxygen Saturation 96.1 % (95-100) Arterial Blood Base Excess -8.0 (-2-2) L Maxim Test Positive Microbiology Date/Time Source Procedure Growth Status 07/07/19 04:00 Sputum Induced Gram Stain - Final Resulted 07/07/19 04:00 Sputum Culture - Preliminary Staphylococcus Aureus Gram Negative Bacillus 1 Resulted 07/07/19 04:00 Trachea Drainage Gram Stain - Final Complete 07/07/19 04:00 Wound Culture - Final Staphylococcus Aureus - Mrsa Proteus Mirabilis Complete Objective HEENT: Tracheostomy in place LUNGS: Coarse rhonchi CVS: RRR ABDOMEN: Obese EXT: No edema. Right femoral triple lumen Catheter and Right arm PICC line in place Giles Rodarte MD Jul 09, 2019 12:44
[2019-07-09] MEDS ORDERED: Sodium Bicarbonate 50ml Carp IV SCH (12:54)
--- NOTE | 2019-07-09 13:41 | Surgery Progress Note ---
Surgery Progress Note Subjective Additional Comments no acute events awake responsive comfortable mucus and foul odor from trach site off vent support now and on trach mask Objective Last 24 Hour Vital Signs Date Time Temp Pulse Resp B/P (MAP) Pulse Ox O2 Delivery O2 Flow Rate FiO2 07/09/19 13:00 94 32 123/81 (95) 99 07/09/19 12:48 83 18 97 Trach Collar 8.0 30 83 18 30 07/09/19 12:00 98.2 87 28 115/71 (86) 95 07/09/19 12:00 100 07/09/19 12:00 30 07/09/19 12:00 Mechanical Ventilator 07/09/19 11:30 94 25 109/66 (80) 97 07/09/19 11:26 128/82 07/09/19 11:00 79 27 128/82 (97) 94 07/09/19 10:30 80 25 125/81 (96) 95 07/09/19 10:00 99 29 118/72 (87) 95 07/09/19 09:30 91 21 124/70 (88) 93 07/09/19 09:08 100 07/09/19 09:08 83 18 Trach Collar 8.0 30 30 07/09/19 09:00 81 22 128/77 (94) 97 07/09/19 08:30 80 19 125/71 (89) 96 07/09/19 08:00 Mechanical Ventilator 07/09/19 08:00 30 07/09/19 08:00 84 07/09/19 08:00 98.0 84 19 114/63 (80) 95 07/09/19 07:30 76 18 138/78 (98) 98 07/09/19 07:14 73 18 98 Mechanical Ventilator 30 73 18 30 07/09/19 07:00 68 18 113/74 (87) 97 07/09/19 06:30 69 18 114/74 (87) 95 07/09/19 06:00 66 18 121/77 (92) 96 07/09/19 06:00 18 Mechanical Ventilator 30 07/09/19 05:30 71 18 116/74 (88) 98 07/09/19 05:13 75 18 30 07/09/19 05:00 18 Mechanical Ventilator 30 07/09/19 05:00 73 18 107/71 (83) 96 07/09/19 04:30 79 18 102/64 (77) 99 07/09/19 04:00 75 07/09/19 04:00 Mechanical Ventilator 07/09/19 04:00 30 07/09/19 04:00 98.6 78 18 111/68 (82) 99 07/09/19 04:00 18 Mechanical Ventilator 30 07/09/19 03:35 18 Mechanical Ventilator 30 07/09/19 03:30 79 18 115/67 (83) 98 07/09/19 03:00 84 23 128/78 (95) 97 07/09/19 03:00 64 18 100 Mechanical Ventilator 30 64 18 30 07/09/19 03:00 17 Mechanical Ventilator 30 07/09/19 02:30 70 18 108/69 (82) 98 07/09/19 02:00 17 Mechanical Ventilator 30 07/09/19 02:00 69 18 105/73 (84) 98 07/09/19 01:30 70 18 110/71 (84) 95 07/09/19 01:13 78 18 30 07/09/19 01:00 72 18 112/68 (83) 96 07/09/19 01:00 18 Mechanical Ventilator 30 07/09/19 00:30 82 18 107/64 (78) 97 07/09/19 00:00 Mechanical Ventilator 07/09/19 00:00 18 Mechanical Ventilator 30 07/09/19 00:00 77 07/09/19 00:00 30 07/09/19 00:00 98.7 77 18 127/73 (91) 98 07/08/19 23:30 78 18 117/71 (86) 98 07/08/19 23:05 77 19 100 Mechanical Ventilator 30 68 18 30 07/08/19 23:00 17 Mechanical Ventilator 30 07/08/19 23:00 83 18 112/63 (79) 100 07/08/19 22:30 83 18 117/71 (86) 100 07/08/19 22:00 77 18 117/70 (86) 100 07/08/19 22:00 18 Mechanical Ventilator 30 07/08/19 21:30 78 19 117/74 (88) 100 07/08/19 21:00 18 Mechanical Ventilator 30 07/08/19 21:00 70 18 127/77 (94) 100 07/08/19 20:30 84 20 30 07/08/19 20:30 94 21 134/85 (101) 97 07/08/19 20:00 75 07/08/19 20:00 73 18 134/90 (105) 97 07/08/19 20:00 30 07/08/19 20:00 Mechanical Ventilator 07/08/19 20:00 18 Mechanical Ventilator 30 07/08/19 19:30 98.5 67 18 126/76 (93) 97 07/08/19 19:25 67 18 100 Mechanical Ventilator 30 68 18 30 07/08/19 19:00 68 128/79 (95) 07/08/19 19:00 17 Mechanical Ventilator 30 07/08/19 18:30 70 20 127/79 (95) 100 07/08/19 18:00 17 Mechanical Ventilator 07/08/19 18:00 70 18 123/74 (90) 100 07/08/19 17:59 17 Mechanical Ventilator 07/08/19 17:30 80 22 127/79 (95) 100 07/08/19 17:20 82 21 30 07/08/19 17:00 88 20 128/66 (86) 98 07/08/19 17:00 24 Mechanical Ventilator 07/08/19 16:30 88 20 124/69 (87) 95 07/08/19 16:04 75 19 100 Mechanical Ventilator 30 95 24 30 07/08/19 16:00 30 07/08/19 16:00 20 Mechanical Ventilator 07/08/19 16:00 Mechanical Ventilator 07/08/19 16:00 98.0 78 21 158/90 (112) 100 07/08/19 16:00 73 07/08/19 15:30 74 21 130/83 (99) 100 07/08/19 15:00 71 16 134/84 (101) 100 07/08/19 15:00 24 Mechanical Ventilator 07/08/19 14:30 76 28 134/84 (101) 100 07/08/19 14:00 112 27 120/88 (99) 99 07/08/19 14:00 22 Mechanical Ventilator I&O Intake and Output 07/08/19 07/09/19 19:00 07:00 Intake Total 2190.5 ml 1860 ml Output Total 1400 ml 980 ml Balance 790.5 ml 880 ml Intake IV Total 1590.5 ml 1260 ml Tube Feeding 600 ml 600 ml Output Urine Total 1400 ml 980 ml # Bowel Movements 3 Dressing: saturated Wound: other Drains: other Cardiovascular: RSR Respiratory: clear Abdomen: soft, present bowel sounds Extremities: no tenderness, no cyanosis Laboratory Tests Test 07/09/19 03:00 07/09/19 12:14 White Blood Count 12.1 K/UL (4.8-10.8) H Red Blood Count 2.56 M/UL (4.20-5.40) L Hemoglobin 8.1 G/DL (12.0-16.0) L Hematocrit 24.6 % (37.0-47.0) L Mean Corpuscular Volume 96 FL (80-99) Mean Corpuscular Hemoglobin 31.4 PG (27.0-31.0) H Mean Corpuscular Hemoglobin Concent 32.8 G/DL (32.0-36.0) Red Cell Distribution Width 15.0 % (11.6-14.8) H Platelet Count 219 K/UL (150-450) Mean Platelet Volume 7.7 FL (6.5-10.1) Neutrophils (%) (Auto) 81.6 % (45.0-75.0) H Lymphocytes (%) (Auto) 8.1 % (20.0-45.0) L Monocytes (%) (Auto) 8.4 % (1.0-10.0) Eosinophils (%) (Auto) 0.9 % (0.0-3.0) Basophils (%) (Auto) 1.0 % (0.0-2.0) Sodium Level 143 MMOL/L (136-145) Potassium Level 4.6 MMOL/L (3.5-5.1) Chloride Level 114 MMOL/L (98-107) H Carbon Dioxide Level 19 MMOL/L (21-32) L Anion Gap 10 mmol/L (5-15) Blood Urea Nitrogen 18 mg/dL (7-18) Creatinine 1.4 MG/DL (0.55-1.30) H Estimat Glomerular Filtration Rate 46.5 mL/min (>60) Glucose Level 120 MG/DL (74-106) H Calcium Level 8.0 MG/DL (8.5-10.1) L Total Bilirubin 0.3 MG/DL (0.2-1.0) Aspartate Amino Transf (AST/SGOT) 15 U/L (15-37) Alanine Aminotransferase (ALT/SGPT) 57 U/L (12-78) Alkaline Phosphatase 54 U/L (46-116) Total Protein 5.2 G/DL (6.4-8.2) L Albumin 1.9 G/DL (3.4-5.0) L Globulin 3.3 g/dL Albumin/Globulin Ratio 0.6 (1.0-2.7) L Lipase 389 U/L (73-393) Arterial Blood pH 7.337 (7.350-7.450) Arterial Blood Partial Pressure CO2 32.4 mmHg (35.0-45.0) L Arterial Blood Partial Pressure O2 87.7 mmHg (75.0-100.0) Arterial Blood HCO3 17.0 mmol/L (22.0-26.0) *L Arterial Blood Oxygen Saturation 96.1 % (95-100) Arterial Blood Base Excess -8.0 (-2-2) L Maxim Test Positive Plan Problems: (1) Angioedema Assessment & Plan: airway trach as per reports trach stable currently sutures in place dressings changed HD line in place and noted off vent will follow with recs thank you (2) Tracheostomy hemorrhage Assessment & Plan: stable dressings dry will monitor doing well may need revision given mucus leak (3) Tracheostomy complication Assessment & Plan: if continues to have leak of mucus with cough and possible infection of trach site may need revision George Cavazos Jul 09, 2019 13:41
[2019-07-09] MEDS: Vasopressin 100 UNITS in NS 95 ML IV SCH (13:42)
--- NOTE | 2019-07-09 15:52 | Nephrology Progress Note ---
Assessment/Plan Problem List: (1) Cocaine abuse (2) Angioedema (3) Hypertension (4) Tracheostomy hemorrhage (5) JUANITA (acute kidney injury) Plan CBC, BMP today and tomorrow Tube feeding continue Abx per ID Contact isolation. Resp therapy to reattempt weening. The patient is no longer anuric and is not acidotic. Will continue to monitor labs to verify renal function. Continue to monitor off ventilator. Consideration for movement to step down tomorrow after pt seen by Dr. Cavazos for possible revision of trach. stoma. Subjective Subjective The patient has a tracheostomy and is limited in conversation. She denies nausea , pain or general discomfort, by shaking and nodding her head. Objective Objective Last 24 Hour Vital Signs Date Time Temp Pulse Resp B/P (MAP) Pulse Ox O2 Delivery O2 Flow Rate FiO2 07/09/19 14:52 104 29 97 Trach Collar 8.0 30 83 18 30 07/09/19 14:00 135 28 141/114 (123) 07/09/19 13:00 94 32 123/81 (95) 99 07/09/19 12:48 83 18 97 Trach Collar 8.0 30 83 18 30 07/09/19 12:00 98.2 87 28 115/71 (86) 95 07/09/19 12:00 100 07/09/19 12:00 30 07/09/19 12:00 Mechanical Ventilator 07/09/19 11:30 94 25 109/66 (80) 97 07/09/19 11:26 128/82 07/09/19 11:00 79 27 128/82 (97) 94 07/09/19 10:30 80 25 125/81 (96) 95 07/09/19 10:00 99 29 118/72 (87) 95 07/09/19 09:30 91 21 124/70 (88) 93 07/09/19 09:08 100 07/09/19 09:08 83 18 Trach Collar 8.0 30 30 07/09/19 09:00 81 22 128/77 (94) 97 07/09/19 08:30 80 19 125/71 (89) 96 07/09/19 08:00 Mechanical Ventilator 07/09/19 08:00 30 07/09/19 08:00 84 07/09/19 08:00 98.0 84 19 114/63 (80) 95 07/09/19 07:30 76 18 138/78 (98) 98 07/09/19 07:14 73 18 98 Mechanical Ventilator 30 73 18 30 07/09/19 07:00 68 18 113/74 (87) 97 07/09/19 06:30 69 18 114/74 (87) 95 07/09/19 06:00 66 18 121/77 (92) 96 07/09/19 06:00 18 Mechanical Ventilator 30 07/09/19 05:30 71 18 116/74 (88) 98 07/09/19 05:13 75 18 30 07/09/19 05:00 18 Mechanical Ventilator 30 07/09/19 05:00 73 18 107/71 (83) 96 07/09/19 04:30 79 18 102/64 (77) 99 07/09/19 04:00 75 07/09/19 04:00 Mechanical Ventilator 07/09/19 04:00 30 07/09/19 04:00 98.6 78 18 111/68 (82) 99 07/09/19 04:00 18 Mechanical Ventilator 30 07/09/19 03:35 18 Mechanical Ventilator 30 07/09/19 03:30 79 18 115/67 (83) 98 07/09/19 03:00 84 23 128/78 (95) 97 07/09/19 03:00 64 18 100 Mechanical Ventilator 30 64 18 30 07/09/19 03:00 17 Mechanical Ventilator 30 07/09/19 02:30 70 18 108/69 (82) 98 07/09/19 02:00 17 Mechanical Ventilator 30 07/09/19 02:00 69 18 105/73 (84) 98 07/09/19 01:30 70 18 110/71 (84) 95 07/09/19 01:13 78 18 30 07/09/19 01:00 72 18 112/68 (83) 96 07/09/19 01:00 18 Mechanical Ventilator 30 07/09/19 00:30 82 18 107/64 (78) 97 07/09/19 00:00 Mechanical Ventilator 07/09/19 00:00 18 Mechanical Ventilator 30 07/09/19 00:00 77 07/09/19 00:00 30 07/09/19 00:00 98.7 77 18 127/73 (91) 98 07/08/19 23:30 78 18 117/71 (86) 98 07/08/19 23:05 77 19 100 Mechanical Ventilator 30 68 18 30 07/08/19 23:00 17 Mechanical Ventilator 30 07/08/19 23:00 83 18 112/63 (79) 100 07/08/19 22:30 83 18 117/71 (86) 100 07/08/19 22:00 77 18 117/70 (86) 100 07/08/19 22:00 18 Mechanical Ventilator 30 07/08/19 21:30 78 19 117/74 (88) 100 07/08/19 21:00 18 Mechanical Ventilator 30 07/08/19 21:00 70 18 127/77 (94) 100 07/08/19 20:30 84 20 30 07/08/19 20:30 94 21 134/85 (101) 97 07/08/19 20:00 75 07/08/19 20:00 73 18 134/90 (105) 97 07/08/19 20:00 30 07/08/19 20:00 Mechanical Ventilator 07/08/19 20:00 18 Mechanical Ventilator 30 07/08/19 19:30 98.5 67 18 126/76 (93) 97 07/08/19 19:25 67 18 100 Mechanical Ventilator 30 68 18 30 07/08/19 19:00 68 128/79 (95) 07/08/19 19:00 17 Mechanical Ventilator 30 07/08/19 18:30 70 20 127/79 (95) 100 07/08/19 18:00 17 Mechanical Ventilator 07/08/19 18:00 70 18 123/74 (90) 100 07/08/19 17:59 17 Mechanical Ventilator 07/08/19 17:30 80 22 127/79 (95) 100 07/08/19 17:20 82 21 30 07/08/19 17:00 88 20 128/66 (86) 98 07/08/19 17:00 24 Mechanical Ventilator 07/08/19 16:30 88 20 124/69 (87) 95 07/08/19 16:04 75 19 100 Mechanical Ventilator 30 95 24 30 07/08/19 16:00 30 07/08/19 16:00 20 Mechanical Ventilator 07/08/19 16:00 Mechanical Ventilator 07/08/19 16:00 98.0 78 21 158/90 (112) 100 07/08/19 16:00 73 Intake and Output 07/08/19 07/09/19 19:00 07:00 Intake Total 2190.5 ml 1860 ml Output Total 1400 ml 980 ml Balance 790.5 ml 880 ml Intake IV Total 1590.5 ml 1260 ml Tube Feeding 600 ml 600 ml Output Urine Total 1400 ml 980 ml # Bowel Movements 3 Laboratory Tests 07/09/19 03:00: White Blood Count 12.1H, Red Blood Count 2.56L, Hemoglobin 8.1L, Hematocrit 24.6L, Mean Corpuscular Volume 96, Mean Corpuscular Hemoglobin 31.4H, Mean Corpuscular Hemoglobin Concent 32.8, Red Cell Distribution Width 15.0H, Platelet Count 219, Mean Platelet Volume 7.7, Neutrophils (%) (Auto) 81.6H, Lymphocytes (%) (Auto) 8.1L, Monocytes (%) (Auto) 8.4, Eosinophils (%) (Auto) 0.9, Basophils (%) (Auto) 1.0, Sodium Level 143, Potassium Level 4.6, Chloride Level 114H, Carbon Dioxide Level 19L, Anion Gap 10, Blood Urea Nitrogen 18, Creatinine 1.4H, Estimat Glomerular Filtration Rate 46.5, Glucose Level 120H, Calcium Level 8.0L, Total Bilirubin 0.3, Aspartate Amino Transf (AST/SGOT) 15, Alanine Aminotransferase (ALT/SGPT) 57, Alkaline Phosphatase 54, Total Protein 5.2L, Albumin 1.9L, Globulin 3.3, Albumin/Globulin Ratio 0.6L, Lipase 389 07/09/19 12:14: Arterial Blood pH 7.337L, Arterial Blood Partial Pressure CO2 32.4L, Arterial Blood Partial Pressure O2 87.7, Arterial Blood HCO3 17.0*L, Arterial Blood Oxygen Saturation 96.1, Arterial Blood Base Excess -8.0L, Maxim Test Positive Height (Feet): 5 Height (Inches): 4.00 Weight (Pounds): 173 General Appearance: no apparent distress, alert Neck: non-tender, supple Cardiovascular: normal peripheral pulses, normal rate, regular rhythm Respiratory/Chest: lungs clear, normal breath sounds, no respiratory distress Abdomen: normal bowel sounds, non tender, soft Extremities: non-tender, normal inspection Neurologic: alert Objective Ms. Burnett appears calm at this time. She is awake and pleasant, NAD. She is heard attempting to clear her trach. The vent has been removed, RT has suctioned multiple times, with minimal aspirate returned. She has a dry cough, and is being given cool aerosol via trach. Presently, she is MRSA +, so contact isolation started. She is producing 50-100cc of urine per hour. Neuro: A&Ox4, [employer] intact CVS: RRR Lungs:clear, trach HEENT: head atraumatic, PERRLA, nose/mouth pink-moist mucosa, tracheostomy clean /no drainage noted Abd: no ttp, BS +, gtube feed GI/: patel w/ yellow clear urine Extremities: no edema, pop/pedal 2+ Skin: normal for ethnicity, no decub ulcers Sharee Alvarez N.P. Jul 09, 2019 15:52
[2019-07-09] MEDS: EPINEPHrine 1mg/1ml Amp 1 MG in D5W 249 ML IV SCH (16:00)
[2019-07-09] MEDS ORDERED: Vancomycin 1.5gm Premix IVPB ONE (17:00)
[2019-07-09] MEDS: DiphenhydrAMINE 50mg/ml Inj IVP PRN (17:03)
--- NOTE | 2019-07-09 17:44 | General Progress Note ---
Assessment/Plan Status: stable, progressing Assessment/Plan: Assessment - Angioedema, s/p emergency trach - abnormal LFT, ? Rhabdo related - improving - borderline CBD dilation on U/S - abnormal Lipase, ? significance - dysphagia, did not pass swallow - now with NJT - Thrombocytopenia - improved - HIV (+) - Drug abuse Recommendations - Continue tube feeds - Scheduled for PEG TH am , if patient agreeable - Monitor labs - will consider CT imaging of abd once out of ICU - Pepcid Subjective Allergies: Coded Allergies: No Known Allergies (Unverified , 06/29/19) Subjective awake d/w patient re indications for PEG she wants to wait a day or two to think about it Objective Last 24 Hour Vital Signs Date Time Temp Pulse Resp B/P (MAP) Pulse Ox O2 Delivery O2 Flow Rate FiO2 07/09/19 17:26 101 19 30 07/09/19 17:00 109 25 157/97 (117) 97 07/09/19 16:00 110 07/09/19 16:00 110 26 145/122 (130) 94 07/09/19 15:00 120 33 145/122 (130) 95 07/09/19 14:52 104 29 97 Trach Collar 8.0 30 83 18 30 07/09/19 14:00 135 28 141/114 (123) 07/09/19 13:00 94 32 123/81 (95) 99 07/09/19 12:48 83 18 97 Trach Collar 8.0 30 83 18 30 07/09/19 12:00 98.2 87 28 115/71 (86) 95 07/09/19 12:00 100 07/09/19 12:00 30 07/09/19 12:00 Mechanical Ventilator 07/09/19 11:30 94 25 109/66 (80) 97 07/09/19 11:26 128/82 07/09/19 11:00 79 27 128/82 (97) 94 07/09/19 10:30 80 25 125/81 (96) 95 07/09/19 10:00 99 29 118/72 (87) 95 07/09/19 09:30 91 21 124/70 (88) 93 07/09/19 09:08 100 07/09/19 09:08 83 18 Trach Collar 8.0 30 30 07/09/19 09:00 81 22 128/77 (94) 97 07/09/19 08:30 80 19 125/71 (89) 96 07/09/19 08:00 Mechanical Ventilator 07/09/19 08:00 30 07/09/19 08:00 84 07/09/19 08:00 98.0 84 19 114/63 (80) 95 07/09/19 07:30 76 18 138/78 (98) 98 07/09/19 07:14 73 18 98 Mechanical Ventilator 30 73 18 30 07/09/19 07:00 68 18 113/74 (87) 97 07/09/19 06:30 69 18 114/74 (87) 95 07/09/19 06:00 66 18 121/77 (92) 96 07/09/19 06:00 18 Mechanical Ventilator 30 07/09/19 05:30 71 18 116/74 (88) 98 07/09/19 05:13 75 18 30 07/09/19 05:00 18 Mechanical Ventilator 30 07/09/19 05:00 73 18 107/71 (83) 96 07/09/19 04:30 79 18 102/64 (77) 99 07/09/19 04:00 75 07/09/19 04:00 Mechanical Ventilator 07/09/19 04:00 30 07/09/19 04:00 98.6 78 18 111/68 (82) 99 07/09/19 04:00 18 Mechanical Ventilator 30 07/09/19 03:35 18 Mechanical Ventilator 30 07/09/19 03:30 79 18 115/67 (83) 98 07/09/19 03:00 84 23 128/78 (95) 97 07/09/19 03:00 64 18 100 Mechanical Ventilator 30 64 18 30 07/09/19 03:00 17 Mechanical Ventilator 30 07/09/19 02:30 70 18 108/69 (82) 98 07/09/19 02:00 17 Mechanical Ventilator 30 07/09/19 02:00 69 18 105/73 (84) 98 07/09/19 01:30 70 18 110/71 (84) 95 07/09/19 01:13 78 18 30 07/09/19 01:00 72 18 112/68 (83) 96 07/09/19 01:00 18 Mechanical Ventilator 30 07/09/19 00:30 82 18 107/64 (78) 97 8/27/19 00:00 Mechanical Ventilator 07/09/19 00:00 18 Mechanical Ventilator 30 07/09/19 00:00 77 07/09/19 00:00 30 07/09/19 00:00 98.7 77 18 127/73 (91) 98 07/08/19 23:30 78 18 117/71 (86) 98 07/08/19 23:05 77 19 100 Mechanical Ventilator 30 68 18 30 07/08/19 23:00 17 Mechanical Ventilator 30 07/08/19 23:00 83 18 112/63 (79) 100 07/08/19 22:30 83 18 117/71 (86) 100 07/08/19 22:00 77 18 117/70 (86) 100 07/08/19 22:00 18 Mechanical Ventilator 30 07/08/19 21:30 78 19 117/74 (88) 100 07/08/19 21:00 18 Mechanical Ventilator 30 07/08/19 21:00 70 18 127/77 (94) 100 07/08/19 20:30 84 20 30 07/08/19 20:30 94 21 134/85 (101) 97 07/08/19 20:00 75 07/08/19 20:00 73 18 134/90 (105) 97 07/08/19 20:00 30 07/08/19 20:00 Mechanical Ventilator 07/08/19 20:00 18 Mechanical Ventilator 30 07/08/19 19:30 98.5 67 18 126/76 (93) 97 07/08/19 19:25 67 18 100 Mechanical Ventilator 30 68 18 30 07/08/19 19:00 68 128/79 (95) 07/08/19 19:00 17 Mechanical Ventilator 30 07/08/19 18:30 70 20 127/79 (95) 100 07/08/19 18:00 17 Mechanical Ventilator 07/08/19 18:00 70 18 123/74 (90) 100 07/08/19 17:59 17 Mechanical Ventilator Intake and Output 07/08/19 07/09/19 19:00 07:00 Intake Total 2190.5 ml 1860 ml Output Total 1400 ml 980 ml Balance 790.5 ml 880 ml Intake IV Total 1590.5 ml 1260 ml Tube Feeding 600 ml 600 ml Output Urine Total 1400 ml 980 ml # Bowel Movements 3 Laboratory Tests 07/09/19 03:00: White Blood Count 12.1H, Red Blood Count 2.56L, Hemoglobin 8.1L, Hematocrit 24.6L, Mean Corpuscular Volume 96, Mean Corpuscular Hemoglobin 31.4H, Mean Corpuscular Hemoglobin Concent 32.8, Red Cell Distribution Width 15.0H, Platelet Count 219, Mean Platelet Volume 7.7, Neutrophils (%) (Auto) 81.6H, Lymphocytes (%) (Auto) 8.1L, Monocytes (%) (Auto) 8.4, Eosinophils (%) (Auto) 0.9, Basophils (%) (Auto) 1.0, Sodium Level 143, Potassium Level 4.6, Chloride Level 114H, Carbon Dioxide Level 19L, Anion Gap 10, Blood Urea Nitrogen 18, Creatinine 1.4H, Estimat Glomerular Filtration Rate 46.5, Glucose Level 120H, Calcium Level 8.0L, Total Bilirubin 0.3, Aspartate Amino Transf (AST/SGOT) 15, Alanine Aminotransferase (ALT/SGPT) 57, Alkaline Phosphatase 54, Total Protein 5.2L, Albumin 1.9L, Globulin 3.3, Albumin/Globulin Ratio 0.6L, Lipase 389 07/09/19 12:14: Arterial Blood pH 7.337L, Arterial Blood Partial Pressure CO2 32.4L, Arterial Blood Partial Pressure O2 87.7, Arterial Blood HCO3 17.0*L, Arterial Blood Oxygen Saturation 96.1, Arterial Blood Base Excess -8.0L, Maxim Test Positive 07/09/19 15:43: Random Vancomycin Level 9.2 Height (Feet): 5 Height (Inches): 4.00 Weight (Pounds): 173 Objective WDWN AA woman NCAT (+) NGT (+) trach Coarse BS RR abd soft no edema Elisabeth Sommers MD Jul 09, 2019 17:44
[2019-07-10] VITALS (24 sets, daily range): BP systolic 110–163; BP diastolic 68–139
[2019-07-10] MEDS: DiphenhydrAMINE 50mg/ml Inj IVP PRN ×3 (01:26→23:01)
[2019-07-10 05:17] LABS: HEMATOCRIT 24.4 % (37.0-47.0); HEMOGLOBIN 7.9 G/DL (12.0-16.0); MEAN CORPUSCULAR VOLUME 96 FL (80-99); PLATELET COUNT 224 K/UL (150-450); RED BLOOD COUNT 2.56 M/UL (4.20-5.40); RED CELL DISTRIBUTION WIDTH 14.8 % (11.6-14.8); WHITE BLOOD COUNT 12.6 K/UL (4.8-10.8)
[2019-07-10 05:32] LABS: ANION GAP 9 mmol/L (5-15); BLOOD UREA NITROGEN 17 mg/dL (7-18); CALCIUM 8.3 MG/DL (8.5-10.1); CARBON DIOXIDE 23 MMOL/L (21-32); CHLORIDE 114 MMOL/L (98-107); CREATININE 1.4 MG/DL (0.55-1.30); POTASSIUM 4.2 MMOL/L (3.5-5.1); SODIUM 146 MMOL/L (136-145)
[2019-07-10] MEDS: NovoLOG Insulin Flexpen SUBQ SCH ×4 (05:56→21:00)
[2019-07-10] MEDS: Solu-MEDROL 40mg Inj IVP SCH (08:10)
[2019-07-10] MEDS: Magnesium Oxide 400mg tab NG SCH ×3 (08:11→18:10)
[2019-07-10] MEDS: Atovaquone 750mg/5ml Susp NG SCH (08:12)
[2019-07-10] MEDS: Thiamine HCl 100 MG in D5W 55 ML IVPB SCH (09:40)
[2019-07-10] MEDS: fentaNYL Citrate 2,500 MCG in NS 200 ML IV SCH (11:31)
[2019-07-10] MEDS: Cefepime 2gm/D5W 110ml IV SCH ×2 (11:53)
--- NOTE | 2019-07-10 12:11 | Infectious Diseases Prog Note ---
"Assessment/Plan Assessment/Plan antibiotics : vancomycin iv, cefepime A 1. leucocytosis improving 2. angioedema 3. respiratory failure s/p emergent tracheostomy 4. HIV, cd4 96 5. renal failure improving 5. MRSA | proteus pneumonia P 1. continue iv vancomycin,cefepime 2. will follow up cultures Subjective ROS Limited/Unobtainable: Yes Allergies: Coded Allergies: No Known Allergies (Unverified , 06/29/19) Objective Vital Signs Last 24 Hour Vital Signs Date Time Temp Pulse Resp B/P (MAP) Pulse Ox O2 Delivery O2 Flow Rate FiO2 07/10/19 11:10 82 20 100 T-Piece 8.0 30 07/10/19 11:00 81 3 133/82 (99) 100 07/10/19 10:00 80 11 126/81 (96) 100 07/10/19 09:00 76 31 136/83 (100) 100 07/10/19 08:55 100 07/10/19 08:55 78 24 T-Piece 8.0 30 07/10/19 08:55 8.0 30 07/10/19 08:00 73 07/10/19 08:00 Mechanical Ventilator 07/10/19 08:00 30 07/10/19 08:00 73 18 110/68 (82) 100 07/10/19 07:00 98.7 72 18 125/86 (99) 100 07/10/19 06:38 74 18 30 07/10/19 06:00 73 18 116/73 (87) 100 07/10/19 05:55 99.1 07/10/19 05:00 99.1 106 27 138/95 (109) 100 07/10/19 04:50 80 21 30 07/10/19 04:00 81 20 146/73 (97) 100 07/10/19 04:00 81 07/10/19 04:00 30 07/10/19 04:00 Mechanical Ventilator 07/10/19 03:01 88 22 30 07/10/19 03:00 81 18 121/79 (93) 100 07/10/19 02:00 98.4 88 21 127/80 (96) 100 07/10/19 02:00 98.4 07/10/19 01:00 101 27 140/97 (111) 100 07/10/19 00:59 86 21 30 07/10/19 00:00 95 07/10/19 00:00 100.2 95 18 111/73 (86) 100 07/10/19 00:00 30 07/10/19 00:00 Mechanical Ventilator 07/09/19 23:00 100 29 119/79 (92) 100 07/09/19 22:51 95 26 30 07/09/19 22:00 93 24 113/69 (84) 100 07/09/19 21:00 98.1 98 26 81/17 (38) 100 07/09/19 20:55 98 24 30 07/09/19 20:00 Mechanical Ventilator 07/09/19 20:00 105 26 159/99 (119) 100 07/09/19 20:00 101 07/09/19 20:00 30 07/09/19 19:00 98 21 153/101 (118) 97 07/09/19 18:40 94 18 98 Mechanical Ventilator 30 94 18 30 07/09/19 18:00 98.1 100 21 159/103 (121) 97 07/09/19 17:26 101 19 30 07/09/19 17:00 109 25 157/97 (117) 97 07/09/19 16:00 Mechanical Ventilator 07/09/19 16:00 30 07/09/19 16:00 110 07/09/19 16:00 110 26 145/122 (130) 94 07/09/19 15:00 120 33 145/122 (130) 95 07/09/19 14:52 104 29 97 Trach Collar 8.0 30 83 18 30 07/09/19 14:00 135 28 141/114 (123) 07/09/19 13:00 94 32 123/81 (95) 99 07/09/19 12:48 83 18 97 Trach Collar 8.0 30 83 18 30 Height (Feet): 5 Height (Inches): 4.00 Weight (Pounds): 175 HEENT: status post trach Respiratory/Chest: lungs clear Cardiovascular: normal rate, regular rhythm, no gallop/murmur Abdomen: soft, non tender Extremities: no edema Laboratory Tests Test 07/09/19 12:14 07/09/19 15:43 07/10/19 04:25 Arterial Blood pH 7.337 (7.350-7.450) Arterial Blood Partial Pressure CO2 32.4 mmHg (35.0-45.0) L Arterial Blood Partial Pressure O2 87.7 mmHg (75.0-100.0) Arterial Blood HCO3 17.0 mmol/L (22.0-26.0) *L Arterial Blood Oxygen Saturation 96.1 % (95-100) Arterial Blood Base Excess -8.0 (-2-2) L Maxim Test Positive Random Vancomycin Level 9.2 ug/mL White Blood Count 12.6 K/UL (4.8-10.8) H Red Blood Count 2.56 M/UL (4.20-5.40) L Hemoglobin 7.9 G/DL (12.0-16.0) L Hematocrit 24.4 % (37.0-47.0) L Mean Corpuscular Volume 96 FL (80-99) Mean Corpuscular Hemoglobin 30.9 PG (27.0-31.0) Mean Corpuscular Hemoglobin Concent 32.4 G/DL (32.0-36.0) Red Cell Distribution Width 14.8 % (11.6-14.8) Platelet Count 224 K/UL (150-450) Mean Platelet Volume 7.1 FL (6.5-10.1) Neutrophils (%) (Auto) % (45.0-75.0) Lymphocytes (%) (Auto) % (20.0-45.0) Monocytes (%) (Auto) % (1.0-10.0) Eosinophils (%) (Auto) % (0.0-3.0) Basophils (%) (Auto) % (0.0-2.0) Sodium Level 146 MMOL/L (136-145) H Potassium Level 4.2 MMOL/L (3.5-5.1) Chloride Level 114 MMOL/L (98-107) H Carbon Dioxide Level 23 MMOL/L (21-32) Anion Gap 9 mmol/L (5-15) Blood Urea Nitrogen 17 mg/dL (7-18) Creatinine 1.4 MG/DL (0.55-1.30) H Estimat Glomerular Filtration Rate 46.5 mL/min (>60) Glucose Level 117 MG/DL (74-106) H Calcium Level 8.3 MG/DL (8.5-10.1) L Current Medications Medications (Trade) Dose Ordered Sig/Dmitri Route PRN Reason Start Time Stop Time Status Last Admin Dose Admin Acetaminophen (Tylenol) 650 mg Q4H PRN RECTAL FEVER 06/29/19 11:01 07/29/19 11:00 07/10/19 01:26 Atovaquone (Mepron Susp) 1,500 mg DAILY NG 07/07/19 12:30 08/06/19 12:29 07/10/19 08:12 Cefepime HCl 2 gm/ Dextrose 110 ml @ 220 mls/hr Q24H IV 07/07/19 12:00 07/14/19 11:59 07/10/19 11:53 Clonazepam (KlonoPIN) 1 mg Q6H PRN ORAL For Anxiety 07/09/19 09:15 07/16/19 09:14 Clonidine HCl (Catapres TTS-1) 1 patch QWEEK TDERMAL 07/04/19 15:00 08/03/19 14:59 07/04/19 15:47 Dextrose (Dextrose 50%) 25 ml Q30M PRN IV Hypoglycemia 06/30/19 15:00 07/30/19 14:59 Dextrose (Dextrose 50%) 50 ml Q30M PRN IV Hypoglycemia 06/30/19 15:00 07/30/19 14:59 Diphenhydramine HCl (Benadryl) 25 mg Q6H PRN IVP Muscle Spasm 06/29/19 11:01 07/29/19 11:00 07/10/19 09:40 Epinephrine 1 mg/ Dextrose 250 ml @ 0 mls/hr Q24H IV 06/29/19 16:00 07/29/19 15:59 Epoetin Eric (Epoetin Eric(ESRD on dialysis)) 8,000 unit SUBQ 07/01/19 21:00 07/31/19 20:59 07/08/19 21:17 Famotidine (Pepcid I.v.) 20 mg Q12HR IVP 06/30/19 21:00 07/30/19 20:59 07/10/19 08:11 Fentanyl Citrate 2500 mcg/Sodium Chloride 250 ml @ 0 mls/hr Q24H IV 06/29/19 12:30 07/13/19 12:29 07/09/19 03:35 Hydralazine HCl (Apresoline) 10 mg Q2H PRN IV For High Blood Pressure 07/02/19 21:15 08/01/19 21:14 07/04/19 18:32 Hydromorphone HCl (Dilaudid) 2 mg Q3H PRN IVP SEVERE BREAKTHROUGH PAIN 07/06/19 13:45 07/13/19 13:44 07/10/19 11:54 Insulin Aspart (NovoLOG) BEFORE MEALS AND HS SUBQ 06/30/19 16:30 07/30/19 16:29 07/10/19 12:03 Magnesium Oxide (Mag-Ox 400mg) 400 mg THREE TIMES A DAY NG 07/07/19 13:00 08/06/19 12:59 07/10/19 08:11 Methylprednisolone Sodium Succinate (Solu-MEDROL) 40 mg DAILY IVP 07/05/19 09:00 07/29/19 13:59 07/10/19 08:10 Metoclopramide HCl (Reglan) 10 mg Q6H PRN IVP Nausea & Vomiting 06/29/19 11:01 07/29/19 11:00 Norepinephrine Bitartrate 8 mg/ Dextrose 508 ml @ 0 mls/hr Q24H IV 06/29/19 12:30 07/29/19 12:29 06/30/19 11:42 Ondansetron HCl (Zofran) 4 mg Q6H PRN IVP Nausea & Vomiting 06/29/19 11:01 07/29/19 11:00 Thiamine HCl 100 mg/Dextrose 56 ml @ 112 mls/hr DAILY IVPB 07/03/19 11:00 08/02/19 10:59 07/10/19 09:40 Vancomycin HCl (Vanco rx to dose) 1 ea DAILY PRN MISC Per rx protocol 07/08/19 12:00 08/07/19 11:59 Vasopressin 100 units/Sodium Chloride 100 ml @ 2.4 mls/hr Q24H IV 06/29/19 14:15 07/29/19 14:14 06/30/19 15:40 Robert Aadms MD Jul 10, 2019 12:11"
--- NOTE | 2019-07-10 12:52 | Nephrology Progress Note ---
Assessment/Plan Problem List: (1) Cocaine abuse (2) Angioedema (3) Hypertension (4) Tracheostomy hemorrhage (5) JUANITA (acute kidney injury) Plan CBC, BMP today and tomorrow Tube feeding continue Abx per ID Contact isolation. Continue to monitor off ventilator with suction and cool air humidifier Consideration for movement to step down again, tomorrow after pt seen by Dr. Cavazos for possible revision of trach. Subjective Constitutional: Reports: no symptoms HEENT: Reports: no symptoms Genitourinary: Reports: no symptoms Neurologic/Psychiatric: Reports: no symptoms Subjective The patient has a tracheostomy and is limited in conversation. She denies nausea , pain or general discomfort, by shaking and nodding her head. Objective Objective Last 24 Hour Vital Signs Date Time Temp Pulse Resp B/P (MAP) Pulse Ox O2 Delivery O2 Flow Rate FiO2 07/10/19 11:10 82 20 100 T-Piece 8.0 30 07/10/19 11:00 81 3 133/82 (99) 100 07/10/19 10:00 80 11 126/81 (96) 100 07/10/19 09:00 76 31 136/83 (100) 100 07/10/19 08:55 100 07/10/19 08:55 78 24 T-Piece 8.0 30 07/10/19 08:55 8.0 30 07/10/19 08:00 73 07/10/19 08:00 Mechanical Ventilator 07/10/19 08:00 30 07/10/19 08:00 73 18 110/68 (82) 100 07/10/19 07:00 98.7 72 18 125/86 (99) 100 07/10/19 06:38 74 18 30 07/10/19 06:00 73 18 116/73 (87) 100 07/10/19 05:55 99.1 07/10/19 05:00 99.1 106 27 138/95 (109) 100 07/10/19 04:50 80 21 30 07/10/19 04:00 81 20 146/73 (97) 100 07/10/19 04:00 81 07/10/19 04:00 30 07/10/19 04:00 Mechanical Ventilator 07/10/19 03:01 88 22 30 07/10/19 03:00 81 18 121/79 (93) 100 07/10/19 02:00 98.4 88 21 127/80 (96) 100 07/10/19 02:00 98.4 07/10/19 01:00 101 27 140/97 (111) 100 07/10/19 00:59 86 21 30 07/10/19 00:00 95 07/10/19 00:00 100.2 95 18 111/73 (86) 100 07/10/19 00:00 30 07/10/19 00:00 Mechanical Ventilator 07/09/19 23:00 100 29 119/79 (92) 100 07/09/19 22:51 95 26 30 07/09/19 22:00 93 24 113/69 (84) 100 07/09/19 21:00 98.1 98 26 81/17 (38) 100 07/09/19 20:55 98 24 30 07/09/19 20:00 Mechanical Ventilator 07/09/19 20:00 105 26 159/99 (119) 100 07/09/19 20:00 101 07/09/19 20:00 30 07/09/19 19:00 98 21 153/101 (118) 97 07/09/19 18:40 94 18 98 Mechanical Ventilator 30 94 18 30 07/09/19 18:00 98.1 100 21 159/103 (121) 97 07/09/19 17:26 101 19 30 07/09/19 17:00 109 25 157/97 (117) 97 07/09/19 16:00 Mechanical Ventilator 07/09/19 16:00 30 07/09/19 16:00 110 07/09/19 16:00 110 26 145/122 (130) 94 07/09/19 15:00 120 33 145/122 (130) 95 07/09/19 14:52 104 29 97 Trach Collar 8.0 30 83 18 30 07/09/19 14:00 135 28 141/114 (123) 07/09/19 13:00 94 32 123/81 (95) 99 07/09/19 12:48 83 18 97 Trach Collar 8.0 30 83 18 30 Intake and Output 07/09/19 07/10/19 19:00 07:00 Intake Total 866 ml 600 ml Output Total 650 ml 800 ml Balance 216 ml -200 ml Intake IV Total 266 ml Tube Feeding 600 ml 600 ml Output Urine Total 650 ml 800 ml Laboratory Tests 07/09/19 15:43: Random Vancomycin Level 9.2 07/10/19 04:25: White Blood Count 12.6H, Red Blood Count 2.56L, Hemoglobin 7.9L, Hematocrit 24.4L, Mean Corpuscular Volume 96, Mean Corpuscular Hemoglobin 30.9, Mean Corpuscular Hemoglobin Concent 32.4, Red Cell Distribution Width 14.8, Platelet Count 224, Mean Platelet Volume 7.1, Neutrophils (%) (Auto) , Lymphocytes (%) ( Auto) , Monocytes (%) (Auto) , Eosinophils (%) (Auto) , Basophils (%) (Auto) , Sodium Level 146H, Potassium Level 4.2, Chloride Level 114H, Carbon Dioxide Level 23, Anion Gap 9, Blood Urea Nitrogen 17, Creatinine 1.4H, Estimat Glomerular Filtration Rate 46.5, Glucose Level 117H, Calcium Level 8.3L Height (Feet): 5 Height (Inches): 4.00 Weight (Pounds): 175 General Appearance: WD/WN, no apparent distress, alert EENT: PERRL/EOMI Cardiovascular: normal peripheral pulses, normal rate, regular rhythm Respiratory/Chest: lungs clear Abdomen: non tender, soft, no organomegaly Extremities: non-tender, normal inspection Neurologic: inspector exhaust emissions II-XII grossly normal, alert, oriented x 3, responsive, normal mood/affect Objective Ms. Burnett appears calm at this time. She is awake and pleasant, NAD. She is no longer clearing her trach. The vent has been removed, and cool aerosol continues. Presently, she is MRSA +, so contact isolation started. She continues to be producing clear yellow urine noted in patel bag/tubing. Neuro: A&Ox4, [employer] intact CVS: RRR Lungs:clear, trached HEENT: head atraumatic, PERRLA, nose/mouth pink-moist mucosa, tracheostomy clean /no drainage noted Abd: no ttp, BS +, gtube feed GI/: patel, no n/v/d/c per nursing notes Extremities: no edema, pop/pedal 2+ (sequentials in place and on) Skin: normal for ethnicity, no decub ulcers Sharee Alvarez N.P. Jul 10, 2019 12:52
[2019-07-10] MEDS: Vasopressin 100 UNITS in NS 95 ML IV SCH (13:15)
[2019-07-10] MEDS: Acetaminophen 650mg/20.3ml NG PRN (13:38)
[2019-07-10] MEDS ORDERED: Acetaminophen 650 MG SUPP RECTAL PRN (13:45)
[2019-07-10] MEDS ORDERED: NS 275ml ONE (14:29)
[2019-07-10] MEDS: EPINEPHrine 1mg/1ml Amp 1 MG in D5W 249 ML IV SCH (15:02)
--- NOTE | 2019-07-10 15:19 | Cardiac Electrophysiology PN ---
Assessment/Plan Assessment/Plan 1. Angioedema, s/p emergency tracheostomy on the Vent Off the vent since this am. Was on the vent last night again 2. S/P Hypotension, 3. Hypertension. On Clonidine patch weekly 4. Cocaine abuse 5. ARF. Last HD and no further . Left femoral Jeison removed 6. Anemia DW RN Subjective Subjective Off the vent today, on T tube and tracheostomy in ICU. Off Pressors. In SR .Was on the vent overnight Objective Last 24 Hour Vital Signs Date Time Temp Pulse Resp B/P (MAP) Pulse Ox O2 Delivery O2 Flow Rate FiO2 07/10/19 14:08 99.1 07/10/19 13:00 73 30 124/74 (91) 100 07/10/19 12:41 71 27 100 T-Piece 8.0 30 07/10/19 12:00 71 07/10/19 12:00 Mechanical Ventilator 07/10/19 12:00 99.1 87 21 136/79 (98) 94 07/10/19 11:10 82 20 100 T-Piece 8.0 30 07/10/19 11:00 81 3 133/82 (99) 100 07/10/19 10:00 80 11 126/81 (96) 100 07/10/19 09:00 76 31 136/83 (100) 100 07/10/19 08:55 100 07/10/19 08:55 78 24 T-Piece 8.0 30 07/10/19 08:55 8.0 30 07/10/19 08:00 73 07/10/19 08:00 Mechanical Ventilator 07/10/19 08:00 30 07/10/19 08:00 73 18 110/68 (82) 100 07/10/19 07:00 98.7 72 18 125/86 (99) 100 07/10/19 06:38 74 18 30 07/10/19 06:00 73 18 116/73 (87) 100 07/10/19 05:55 99.1 07/10/19 05:00 99.1 106 27 138/95 (109) 100 07/10/19 04:50 80 21 30 07/10/19 04:00 81 20 146/73 (97) 100 07/10/19 04:00 81 07/10/19 04:00 30 07/10/19 04:00 Mechanical Ventilator 07/10/19 03:01 88 22 30 07/10/19 03:00 81 18 121/79 (93) 100 07/10/19 02:00 98.4 88 21 127/80 (96) 100 07/10/19 02:00 98.4 07/10/19 01:00 101 27 140/97 (111) 100 07/10/19 00:59 86 21 30 07/10/19 00:00 95 07/10/19 00:00 100.2 95 18 111/73 (86) 100 07/10/19 00:00 30 07/10/19 00:00 Mechanical Ventilator 07/09/19 23:00 100 29 119/79 (92) 100 07/09/19 22:51 95 26 30 07/09/19 22:00 93 24 113/69 (84) 100 07/09/19 21:00 98.1 98 26 81/17 (38) 100 07/09/19 20:55 98 24 30 07/09/19 20:00 Mechanical Ventilator 07/09/19 20:00 105 26 159/99 (119) 100 07/09/19 20:00 101 07/09/19 20:00 30 07/09/19 19:00 98 21 153/101 (118) 97 07/09/19 18:40 94 18 98 Mechanical Ventilator 30 94 18 30 07/09/19 18:00 98.1 100 21 159/103 (121) 97 07/09/19 17:26 101 19 30 07/09/19 17:00 109 25 157/97 (117) 97 07/09/19 16:00 Mechanical Ventilator 07/09/19 16:00 30 07/09/19 16:00 110 07/09/19 16:00 110 26 145/122 (130) 94 Intake and Output 07/09/19 07/10/19 19:00 07:00 Intake Total 866 ml 600 ml Output Total 650 ml 800 ml Balance 216 ml -200 ml Intake IV Total 266 ml Tube Feeding 600 ml 600 ml Output Urine Total 650 ml 800 ml Laboratory Tests Test 07/09/19 15:43 07/10/19 04:25 07/10/19 13:45 Random Vancomycin Level 9.2 ug/mL White Blood Count 12.6 K/UL (4.8-10.8) H Red Blood Count 2.56 M/UL (4.20-5.40) L Hemoglobin 7.9 G/DL (12.0-16.0) L Hematocrit 24.4 % (37.0-47.0) L Mean Corpuscular Volume 96 FL (80-99) Mean Corpuscular Hemoglobin 30.9 PG (27.0-31.0) Mean Corpuscular Hemoglobin Concent 32.4 G/DL (32.0-36.0) Red Cell Distribution Width 14.8 % (11.6-14.8) Platelet Count 224 K/UL (150-450) Mean Platelet Volume 7.1 FL (6.5-10.1) Neutrophils (%) (Auto) % (45.0-75.0) Lymphocytes (%) (Auto) % (20.0-45.0) Monocytes (%) (Auto) % (1.0-10.0) Eosinophils (%) (Auto) % (0.0-3.0) Basophils (%) (Auto) % (0.0-2.0) Sodium Level 146 MMOL/L (136-145) H Potassium Level 4.2 MMOL/L (3.5-5.1) Chloride Level 114 MMOL/L (98-107) H Carbon Dioxide Level 23 MMOL/L (21-32) Anion Gap 9 mmol/L (5-15) Blood Urea Nitrogen 17 mg/dL (7-18) Creatinine 1.4 MG/DL (0.55-1.30) H Estimat Glomerular Filtration Rate 46.5 mL/min (>60) Glucose Level 117 MG/DL (74-106) H Calcium Level 8.3 MG/DL (8.5-10.1) L Prothrombin Time 10.6 SEC (9.30-11.50) Prothromb Time International Ratio 1.0 (0.9-1.1) Activated Partial Thromboplast Time 27 SEC (23-33) Objective HEENT: Tracheostomy in place LUNGS: Coarse rhonchi CVS: RRR ABDOMEN: Obese EXT: No edema. Right femoral triple lumen Catheter and Right arm PICC line in place Giles Rodarte MD Jul 10, 2019 15:19
--- NOTE | 2019-07-10 15:54 | Surgery Progress Note ---
Surgery Progress Note Subjective Additional Comments no acute events comfortable stable less drainage around trach site Objective Last 24 Hour Vital Signs Date Time Temp Pulse Resp B/P (MAP) Pulse Ox O2 Delivery O2 Flow Rate FiO2 07/10/19 15:11 84 18 100 T-Piece 8.0 30 07/10/19 14:08 99.1 07/10/19 13:00 73 30 124/74 (91) 100 07/10/19 12:41 71 27 100 T-Piece 8.0 30 07/10/19 12:00 71 07/10/19 12:00 Mechanical Ventilator 07/10/19 12:00 99.1 87 21 136/79 (98) 94 07/10/19 11:10 82 20 100 T-Piece 8.0 30 07/10/19 11:00 81 3 133/82 (99) 100 07/10/19 10:00 80 11 126/81 (96) 100 07/10/19 09:00 76 31 136/83 (100) 100 07/10/19 08:55 100 07/10/19 08:55 78 24 T-Piece 8.0 30 07/10/19 08:55 8.0 30 07/10/19 08:00 73 07/10/19 08:00 Mechanical Ventilator 07/10/19 08:00 30 07/10/19 08:00 73 18 110/68 (82) 100 07/10/19 07:00 98.7 72 18 125/86 (99) 100 07/10/19 06:38 74 18 30 07/10/19 06:00 73 18 116/73 (87) 100 07/10/19 05:55 99.1 07/10/19 05:00 99.1 106 27 138/95 (109) 100 07/10/19 04:50 80 21 30 07/10/19 04:00 81 20 146/73 (97) 100 07/10/19 04:00 81 07/10/19 04:00 30 07/10/19 04:00 Mechanical Ventilator 07/10/19 03:01 88 22 30 07/10/19 03:00 81 18 121/79 (93) 100 07/10/19 02:00 98.4 88 21 127/80 (96) 100 07/10/19 02:00 98.4 07/10/19 01:00 101 27 140/97 (111) 100 07/10/19 00:59 86 21 30 07/10/19 00:00 95 07/10/19 00:00 100.2 95 18 111/73 (86) 100 07/10/19 00:00 30 07/10/19 00:00 Mechanical Ventilator 07/09/19 23:00 100 29 119/79 (92) 100 07/09/19 22:51 95 26 30 07/09/19 22:00 93 24 113/69 (84) 100 07/09/19 21:00 98.1 98 26 81/17 (38) 100 07/09/19 20:55 98 24 30 07/09/19 20:00 Mechanical Ventilator 07/09/19 20:00 105 26 159/99 (119) 100 07/09/19 20:00 101 07/09/19 20:00 30 07/09/19 19:00 98 21 153/101 (118) 97 07/09/19 18:40 94 18 98 Mechanical Ventilator 30 94 18 30 07/09/19 18:00 98.1 100 21 159/103 (121) 97 07/09/19 17:26 101 19 30 07/09/19 17:00 109 25 157/97 (117) 97 07/09/19 16:00 Mechanical Ventilator 07/09/19 16:00 30 07/09/19 16:00 110 07/09/19 16:00 110 26 145/122 (130) 94 I&O Intake and Output 07/09/19 07/10/19 19:00 07:00 Intake Total 866 ml 600 ml Output Total 650 ml 800 ml Balance 216 ml -200 ml Intake IV Total 266 ml Tube Feeding 600 ml 600 ml Output Urine Total 650 ml 800 ml Dressing: saturated Wound: clean Cardiovascular: RSR Respiratory: clear Abdomen: soft, flat, non-tender, present bowel sounds Extremities: no edema, no tenderness, no cyanosis Laboratory Tests Test 07/10/19 04:25 07/10/19 13:45 07/10/19 15:35 White Blood Count 12.6 K/UL (4.8-10.8) H Red Blood Count 2.56 M/UL (4.20-5.40) L Hemoglobin 7.9 G/DL (12.0-16.0) L Hematocrit 24.4 % (37.0-47.0) L Mean Corpuscular Volume 96 FL (80-99) Mean Corpuscular Hemoglobin 30.9 PG (27.0-31.0) Mean Corpuscular Hemoglobin Concent 32.4 G/DL (32.0-36.0) Red Cell Distribution Width 14.8 % (11.6-14.8) Platelet Count 224 K/UL (150-450) Mean Platelet Volume 7.1 FL (6.5-10.1) Neutrophils (%) (Auto) % (45.0-75.0) Lymphocytes (%) (Auto) % (20.0-45.0) Monocytes (%) (Auto) % (1.0-10.0) Eosinophils (%) (Auto) % (0.0-3.0) Basophils (%) (Auto) % (0.0-2.0) Sodium Level 146 MMOL/L (136-145) H Potassium Level 4.2 MMOL/L (3.5-5.1) Chloride Level 114 MMOL/L (98-107) H Carbon Dioxide Level 23 MMOL/L (21-32) Anion Gap 9 mmol/L (5-15) Blood Urea Nitrogen 17 mg/dL (7-18) Creatinine 1.4 MG/DL (0.55-1.30) H Estimat Glomerular Filtration Rate 46.5 mL/min (>60) Glucose Level 117 MG/DL (74-106) H Calcium Level 8.3 MG/DL (8.5-10.1) L Prothrombin Time 10.6 SEC (9.30-11.50) Prothromb Time International Ratio 1.0 (0.9-1.1) Activated Partial Thromboplast Time 27 SEC (23-33) Arterial Blood pH 7.416 (7.350-7.450) Arterial Blood Partial Pressure CO2 35.1 mmHg (35.0-45.0) Arterial Blood Partial Pressure O2 89.8 mmHg (75.0-100.0) Arterial Blood HCO3 22.1 mmol/L (22.0-26.0) Arterial Blood Oxygen Saturation 96.2 % (95-100) Arterial Blood Base Excess -2.1 (-2-2) L Maxim Test Positive Plan Problems: (1) Angioedema Assessment & Plan: airway trach as per reports trach stable currently sutures in place dressings changed HD line in place and noted off vent will follow with recs thank you (2) Tracheostomy hemorrhage Assessment & Plan: stable dressings dry will monitor doing well may need revision given mucus leak (3) Tracheostomy complication Assessment & Plan: if continues to have leak of mucus with cough and possible infection of trach site may need revision George Cavazos Jul 10, 2019 15:54
--- NOTE | 2019-07-10 17:20 | General Progress Note ---
Assessment/Plan Problem List: (1) Tracheostomy hemorrhage ICD Codes: J95.01 - Hemorrhage from tracheostomy stoma SNOMED: 20305904 (2) Tracheostomy complication ICD Codes: J95.00 - Unspecified tracheostomy complication SNOMED: 68455528 (3) Cocaine abuse ICD Codes: F14.10 - Cocaine abuse, uncomplicated SNOMED: 65111202 (4) Angioedema ICD Codes: T78.3XXA - Angioneurotic edema, initial encounter SNOMED: 89504332 Qualifiers: Qualified Codes: T78.3XXA - Angioneurotic edema, initial encounter (5) Hypertension ICD Codes: I10 - Essential (primary) hypertension SNOMED: 40043250 Qualifiers: Qualified Codes: I10 - Essential (primary) hypertension Status: stable, progressing Assessment/Plan: vent - wean as able resp care monitor for bleeding, monitor labs pain rx wean sedation anxiolytics- try to wean GT by GI Subjective ROS Limited/Unobtainable: No Constitutional: Reports: malaise, weakness HEENT: Reports: no symptoms Cardiovascular: Reports: no symptoms Respiratory: Reports: shortness of breath Gastrointestinal/Abdominal: Reports: difficulty swallowing Allergies: Coded Allergies: No Known Allergies (Unverified , 06/29/19) Subjective no events. off fentanyl drip. awake. minimal pain and sob. weaning. tolerating ngt feeds Objective Last 24 Hour Vital Signs Date Time Temp Pulse Resp B/P (MAP) Pulse Ox O2 Delivery O2 Flow Rate FiO2 07/10/19 16:00 Mechanical Ventilator 07/10/19 16:00 70 07/10/19 16:00 99.0 78 26 124/73 (90) 99 07/10/19 16:00 8.0 30 07/10/19 15:54 100 T-Piece 8.0 30 07/10/19 15:53 78 24 100 T-Piece 8.0 30 07/10/19 15:11 84 18 100 T-Piece 8.0 30 07/10/19 15:00 76 10 129/81 (97) 100 07/10/19 14:08 99.1 07/10/19 14:00 72 21 121/81 (94) 100 07/10/19 13:00 73 30 124/74 (91) 100 07/10/19 12:41 71 27 100 T-Piece 8.0 30 07/10/19 12:00 71 8/28/19 12:00 Mechanical Ventilator 07/10/19 12:00 99.1 87 21 136/79 (98) 94 07/10/19 11:10 82 20 100 T-Piece 8.0 30 07/10/19 11:00 81 3 133/82 (99) 100 07/10/19 10:00 80 11 126/81 (96) 100 07/10/19 09:00 76 31 136/83 (100) 100 07/10/19 08:55 100 07/10/19 08:55 78 24 T-Piece 8.0 30 07/10/19 08:55 8.0 30 07/10/19 08:00 73 07/10/19 08:00 Mechanical Ventilator 07/10/19 08:00 30 07/10/19 08:00 73 18 110/68 (82) 100 07/10/19 07:00 98.7 72 18 125/86 (99) 100 07/10/19 06:38 74 18 30 07/10/19 06:00 73 18 116/73 (87) 100 07/10/19 05:55 99.1 07/10/19 05:00 99.1 106 27 138/95 (109) 100 07/10/19 04:50 80 21 30 07/10/19 04:00 81 20 146/73 (97) 100 07/10/19 04:00 81 07/10/19 04:00 30 07/10/19 04:00 Mechanical Ventilator 07/10/19 03:01 88 22 30 07/10/19 03:00 81 18 121/79 (93) 100 07/10/19 02:00 98.4 88 21 127/80 (96) 100 07/10/19 02:00 98.4 07/10/19 01:00 101 27 140/97 (111) 100 07/10/19 00:59 86 21 30 07/10/19 00:00 95 07/10/19 00:00 100.2 95 18 111/73 (86) 100 07/10/19 00:00 30 07/10/19 00:00 Mechanical Ventilator 07/09/19 23:00 100 29 119/79 (92) 100 07/09/19 22:51 95 26 30 07/09/19 22:00 93 24 113/69 (84) 100 07/09/19 21:00 98.1 98 26 81/17 (38) 100 07/09/19 20:55 98 24 30 07/09/19 20:00 Mechanical Ventilator 07/09/19 20:00 105 26 159/99 (119) 100 07/09/19 20:00 101 07/09/19 20:00 30 07/09/19 19:00 98 21 153/101 (118) 97 07/09/19 18:40 94 18 98 Mechanical Ventilator 30 94 18 30 07/09/19 18:00 98.1 100 21 159/103 (121) 97 07/09/19 17:26 101 19 30 Intake and Output 07/09/19 07/10/19 19:00 07:00 Intake Total 866 ml 600 ml Output Total 650 ml 800 ml Balance 216 ml -200 ml Intake IV Total 266 ml Tube Feeding 600 ml 600 ml Output Urine Total 650 ml 800 ml Laboratory Tests 07/10/19 04:25: White Blood Count 12.6H, Red Blood Count 2.56L, Hemoglobin 7.9L, Hematocrit 24.4L, Mean Corpuscular Volume 96, Mean Corpuscular Hemoglobin 30.9, Mean Corpuscular Hemoglobin Concent 32.4, Red Cell Distribution Width 14.8, Platelet Count 224, Mean Platelet Volume 7.1, Neutrophils (%) (Auto) , Lymphocytes (%) ( Auto) , Monocytes (%) (Auto) , Eosinophils (%) (Auto) , Basophils (%) (Auto) , Sodium Level 146H, Potassium Level 4.2, Chloride Level 114H, Carbon Dioxide Level 23, Anion Gap 9, Blood Urea Nitrogen 17, Creatinine 1.4H, Estimat Glomerular Filtration Rate 46.5, Glucose Level 117H, Calcium Level 8.3L 07/10/19 13:45: Prothrombin Time 10.6, Prothromb Time International Ratio 1.0, Activated Partial Thromboplast Time 27 07/10/19 15:35: Arterial Blood pH 7.416, Arterial Blood Partial Pressure CO2 35.1, Arterial Blood Partial Pressure O2 89.8, Arterial Blood HCO3 22.1, Arterial Blood Oxygen Saturation 96.2, Arterial Blood Base Excess -2.1L, Maxim Test Positive Height (Feet): 5 Height (Inches): 4.00 Weight (Pounds): 165 Objective General Appearance: WD/WN, alert Neck: supple, other - trach midline Cardiovascular: normal rate, regular rhythm Respiratory/Chest: chest wall non-tender, lungs clear, normal breath sounds, no respiratory distress Abdomen: normal bowel sounds, non tender, soft, no organomegaly Edema: no edema noted Arm (L), no edema noted Arm (R), no edema noted Leg (L), no edema noted Leg (R), no edema noted Pedal (L), no edema noted Pedal (R), no edema noted Generalized Danis Markham MD Jul 10, 2019 17:20
--- NOTE | 2019-07-10 18:59 | Hematology/Onc Progress Note ---
Assessment/Plan Assessment/Plan A/R # Thrombocytopenia - potential causes multifactorial, evaluate liver and viral etiologies to begin, also could be related to underlying medications patient has received. 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 Significance/etiology uncertain. This can be seen in chronic pancreatitis as well as ductectatic neoplasm--> once more stable get Ct with iv cont --> DIC panel has been reviewed, NEgative --> Peripheral smear ordered to evaluate for blasts /schistocytes and none noted --> abx and other meds have been reviewed --> ok for ppx if plt >50k w/ either heparin or lovenox --> Transfuse if Plt < 20k and fever, or if Plt < 10k without fever --> plt trend 200-->87-->60-->38k-> 50k-->91k-->110k-->138k-->184k->207k -> [id number] ordered -- > is neg --> ID eval and care per id # Anemia of chronic disease due to underlying chronic medical issues, multifactorial --> Anemia workup has been ordered and c/w acd --> No evidence of hemolysis is noted, peripheral smear has been reviewed. --> Hgb goal >7. Transfuse prn. --> Epogen or iron at this time is not particularly indicated --> Medications have been reviewed --> low threshold for gi evaluation in case has occult + --> hgb trend 8.7--> 9-->10.9-->9.7->8.6 # Leukocytosis --> wbc trend 17-->15-->14k->16-->19.4-->15-->15.9-->13.6 --> steriods for angioedema # Angioedeam --> ffp, steriods given --> s/p trach # Resp failure s/p trach --> to vent # Severe Hypotension --> is now off both pressors. # Hx of Hypertension # Cocaine abuse # ARF on HD now --> 07/02 --> now off hd # HIV++ The timing of this note does not necessarily reflect the time of the patient was seen. GREATLY APPRECIATE CONSULTATION. Subjective Constitutional: Denies: no symptoms, chills, fever, malaise, weakness, other Cardiovascular: Denies: no symptoms, chest pain, edema, irregular heart rate, lightheadedness, palpitations, syncope, other Respiratory: Denies: no symptoms, cough, shortness of breath, SOB with excertion, SOB at rest, sputum, wheezing, other Gastrointestinal/Abdominal: Denies: no symptoms, abdomen distended, abdominal pain, black stools, tarry stools, blood in stool, constipated, diarrhea, difficulty swallowing, nausea, poor appetite, poor fluid intake, rectal bleeding , vomiting, other Genitourinary: Denies: no symptoms, burning, discharge, frequency, flank pain, hematuria, incontinence, pain, urgency, other Neurologic/Psychiatric: Denies: no symptoms, anxiety, depressed, emotional problems, headache, numbness, paresthesia, pre-existing deficit, seizure, tingling, tremors, weakness, other Endocrine: Denies: no symptoms, excessive sweating, flushing, intolerance to cold, intolerance to heat, increased hunger, increased thirst, increased urine, unexplained weight gain, unexplained weight loss, other Allergies: Coded Allergies: No Known Allergies (Unverified , 06/29/19) Subjective 07/02: remains in the icu, onpressors and epogen, hgb stable 07/03: in icu, no events, on vent, no fever or chills, denies pain or sob 07/04: s/p vent/trach, on fentanyl gtt, id made aware of HIV++ 07/05: sedated, trach, off abx, labs reviewed 07/07: weaning off pressors, no fevers or chills, is on pcp ppx 07/08: weaning off vent, no bleeding, htn better on clonidine coughing intermittently 07/10: getting 1 unit prnc, weaning vent when possible Objective Objective Current Medications Medications (Trade) Dose Ordered Sig/Dmitri Route PRN Reason Start Time Stop Time Status Last Admin Dose Admin Acetaminophen (Tylenol) 650 mg Q4H PRN NG Mild Pain/fever 07/10/19 13:30 08/09/19 13:29 07/10/19 13:38 Acetaminophen (Tylenol) 650 mg Q4H PRN RECTAL FEVER 07/10/19 13:45 07/29/19 11:00 Atovaquone (Mepron Susp) 1,500 mg DAILY NG 07/07/19 12:30 08/06/19 12:29 07/10/19 08:12 Cefepime HCl 2 gm/ Dextrose 110 ml @ 220 mls/hr Q24H IV 07/07/19 12:00 07/14/19 11:59 07/10/19 11:53 Clonazepam (KlonoPIN) 1 mg Q6H PRN NG For Anxiety 07/10/19 13:45 07/16/19 09:14 Clonidine HCl (Catapres TTS-1) 1 patch QWEEK TDERMAL 07/04/19 15:00 08/03/19 14:59 07/04/19 15:47 Dextrose (Dextrose 50%) 25 ml Q30M PRN IV Hypoglycemia 06/30/19 15:00 07/30/19 14:59 Dextrose (Dextrose 50%) 50 ml Q30M PRN IV Hypoglycemia 06/30/19 15:00 07/30/19 14:59 Diphenhydramine HCl (Benadryl) 25 mg Q6H PRN IVP Muscle Spasm 06/29/19 11:01 07/29/19 11:00 07/10/19 09:40 Epinephrine 1 mg/ Dextrose 250 ml @ 0 mls/hr Q24H IV 06/29/19 16:00 07/29/19 15:59 Epoetin Eric (Epoetin Eric(ESRD on dialysis)) 8,000 unit SUBQ 07/01/19 21:00 07/31/19 20:59 07/08/19 21:17 Famotidine (Pepcid I.v.) 20 mg Q12HR IVP 06/30/19 21:00 07/30/19 20:59 07/10/19 08:11 Fentanyl Citrate 2500 mcg/Sodium Chloride 250 ml @ 0 mls/hr Q24H IV 06/29/19 12:30 07/13/19 12:29 07/09/19 03:35 Hydralazine HCl (Apresoline) 10 mg Q2H PRN IV For High Blood Pressure 07/02/19 21:15 08/01/19 21:14 07/04/19 18:32 Hydromorphone HCl (Dilaudid) 2 mg Q3H PRN IVP SEVERE BREAKTHROUGH PAIN 07/06/19 13:45 07/13/19 13:44 07/10/19 11:54 Insulin Aspart (NovoLOG) BEFORE MEALS AND HS SUBQ 06/30/19 16:30 07/30/19 16:29 07/10/19 12:03 Magnesium Oxide (Mag-Ox 400mg) 400 mg THREE TIMES A DAY NG 07/07/19 13:00 08/06/19 12:59 07/10/19 18:10 Methylprednisolone Sodium Succinate (Solu-MEDROL) 40 mg DAILY IVP 07/05/19 09:00 07/29/19 13:59 07/10/19 08:10 Metoclopramide HCl (Reglan) 10 mg Q6H PRN IVP Nausea & Vomiting 06/29/19 11:01 07/29/19 11:00 Norepinephrine Bitartrate 8 mg/ Dextrose 508 ml @ 0 mls/hr Q24H IV 06/29/19 12:30 07/29/19 12:29 06/30/19 11:42 Ondansetron HCl (Zofran) 4 mg Q6H PRN IVP Nausea & Vomiting 06/29/19 11:01 07/29/19 11:00 Thiamine HCl 100 mg/Dextrose 56 ml @ 112 mls/hr DAILY IVPB 07/03/19 11:00 08/02/19 10:59 07/10/19 09:40 Vancomycin HCl (Vanco rx to dose) 1 ea DAILY PRN MISC Per rx protocol 07/08/19 12:00 08/07/19 11:59 Vasopressin 100 units/Sodium Chloride 100 ml @ 2.4 mls/hr Q24H IV 06/29/19 14:15 07/29/19 14:14 06/30/19 15:40 Last 24 Hour Vital Signs Date Time Temp Pulse Resp B/P (MAP) Pulse Ox O2 Delivery O2 Flow Rate FiO2 07/10/19 16:00 Mechanical Ventilator 07/10/19 16:00 70 07/10/19 16:00 99.0 78 26 124/73 (90) 99 07/10/19 16:00 8.0 30 07/10/19 15:54 100 T-Piece 8.0 30 07/10/19 15:53 78 24 100 T-Piece 8.0 30 07/10/19 15:11 84 18 100 T-Piece 8.0 30 07/10/19 15:00 76 10 129/81 (97) 100 07/10/19 14:08 99.1 07/10/19 14:00 72 21 121/81 (94) 100 07/10/19 13:00 73 30 124/74 (91) 100 07/10/19 12:41 71 27 100 T-Piece 8.0 30 07/10/19 12:00 71 07/10/19 12:00 Mechanical Ventilator 07/10/19 12:00 99.1 87 21 136/79 (98) 94 07/10/19 11:10 82 20 100 T-Piece 8.0 30 07/10/19 11:00 81 3 133/82 (99) 100 07/10/19 10:00 80 11 126/81 (96) 100 07/10/19 09:00 76 31 136/83 (100) 100 07/10/19 08:55 100 07/10/19 08:55 78 24 T-Piece 8.0 30 07/10/19 08:55 8.0 30 07/10/19 08:00 73 07/10/19 08:00 Mechanical Ventilator 07/10/19 08:00 30 07/10/19 08:00 73 18 110/68 (82) 100 07/10/19 07:00 98.7 72 18 125/86 (99) 100 07/10/19 06:38 74 18 30 07/10/19 06:00 73 18 116/73 (87) 100 07/10/19 05:55 99.1 07/10/19 05:00 99.1 106 27 138/95 (109) 100 07/10/19 04:50 80 21 30 07/10/19 04:00 81 20 146/73 (97) 100 07/10/19 04:00 81 07/10/19 04:00 30 07/10/19 04:00 Mechanical Ventilator 07/10/19 03:01 88 22 30 07/10/19 03:00 81 18 121/79 (93) 100 07/10/19 02:00 98.4 88 21 127/80 (96) 100 07/10/19 02:00 98.4 07/10/19 01:00 101 27 140/97 (111) 100 07/10/19 00:59 86 21 30 07/10/19 00:00 95 07/10/19 00:00 100.2 95 18 111/73 (86) 100 07/10/19 00:00 30 07/10/19 00:00 Mechanical Ventilator 07/09/19 23:00 100 29 119/79 (92) 100 07/09/19 22:51 95 26 30 07/09/19 22:00 93 24 113/69 (84) 100 07/09/19 21:00 98.1 98 26 81/17 (38) 100 07/09/19 20:55 98 24 30 07/09/19 20:00 Mechanical Ventilator 07/09/19 20:00 105 26 159/99 (119) 100 07/09/19 20:00 101 07/09/19 20:00 30 07/09/19 19:00 98 21 153/101 (118) 97 07/09/19 18:40 94 18 98 Mechanical Ventilator 30 94 18 30 07/09/19 18:00 98.1 100 21 159/103 (121) 97 07/09/19 17:26 101 19 30 07/09/19 17:00 109 25 157/97 (117) 97 07/09/19 16:00 Mechanical Ventilator 07/09/19 16:00 30 07/09/19 16:00 110 07/09/19 16:00 110 26 145/122 (130) 94 07/09/19 15:00 120 33 145/122 (130) 95 07/09/19 14:52 104 29 97 Trach Collar 8.0 30 83 18 30 07/09/19 14:00 135 28 141/114 (123) 07/09/19 13:00 94 32 123/81 (95) 99 07/09/19 12:48 83 18 97 Trach Collar 8.0 30 83 18 30 07/09/19 12:00 98.2 87 28 115/71 (86) 95 07/09/19 12:00 100 07/09/19 12:00 30 07/09/19 12:00 Mechanical Ventilator 07/09/19 11:30 94 25 109/66 (80) 97 07/09/19 11:26 128/82 07/09/19 11:00 79 27 128/82 (97) 94 07/09/19 10:30 80 25 125/81 (96) 95 07/09/19 10:00 99 29 118/72 (87) 95 07/09/19 09:30 91 21 124/70 (88) 93 07/09/19 09:08 100 07/09/19 09:08 83 18 Trach Collar 8.0 30 30 07/09/19 09:00 81 22 128/77 (94) 97 07/09/19 08:30 80 19 125/71 (89) 96 07/09/19 08:00 Mechanical Ventilator 07/09/19 08:00 30 07/09/19 08:00 84 07/09/19 08:00 98.0 84 19 114/63 (80) 95 07/09/19 07:30 76 18 138/78 (98) 98 07/09/19 07:14 73 18 98 Mechanical Ventilator 30 73 18 30 07/09/19 07:00 68 18 113/74 (87) 97 07/09/19 06:30 69 18 114/74 (87) 95 07/09/19 06:00 66 18 121/77 (92) 96 07/09/19 06:00 18 Mechanical Ventilator 30 07/09/19 05:30 71 18 116/74 (88) 98 07/09/19 05:13 75 18 30 07/09/19 05:00 18 Mechanical Ventilator 30 07/09/19 05:00 73 18 107/71 (83) 96 07/09/19 04:30 79 18 102/64 (77) 99 07/09/19 04:00 75 07/09/19 04:00 Mechanical Ventilator 07/09/19 04:00 30 07/09/19 04:00 98.6 78 18 111/68 (82) 99 07/09/19 04:00 18 Mechanical Ventilator 30 07/09/19 03:35 18 Mechanical Ventilator 30 07/09/19 03:30 79 18 115/67 (83) 98 07/09/19 03:00 84 23 128/78 (95) 97 07/09/19 03:00 64 18 100 Mechanical Ventilator 30 64 18 30 07/09/19 03:00 17 Mechanical Ventilator 30 07/09/19 02:30 70 18 108/69 (82) 98 07/09/19 02:00 17 Mechanical Ventilator 30 07/09/19 02:00 69 18 105/73 (84) 98 07/09/19 01:30 70 18 110/71 (84) 95 07/09/19 01:13 78 18 30 07/09/19 01:00 72 18 112/68 (83) 96 07/09/19 01:00 18 Mechanical Ventilator 30 07/09/19 00:30 82 18 107/64 (78) 97 07/09/19 00:00 Mechanical Ventilator 07/09/19 00:00 18 Mechanical Ventilator 30 07/09/19 00:00 77 07/09/19 00:00 30 07/09/19 00:00 98.7 77 18 127/73 (91) 98 07/08/19 23:30 78 18 117/71 (86) 98 07/08/19 23:05 77 19 100 Mechanical Ventilator 30 68 18 30 07/08/19 23:00 17 Mechanical Ventilator 30 07/08/19 23:00 83 18 112/63 (79) 100 07/08/19 22:30 83 18 117/71 (86) 100 07/08/19 22:00 77 18 117/70 (86) 100 07/08/19 22:00 18 Mechanical Ventilator 30 07/08/19 21:30 78 19 117/74 (88) 100 07/08/19 21:00 18 Mechanical Ventilator 30 07/08/19 21:00 70 18 127/77 (94) 100 07/08/19 20:30 84 20 30 07/08/19 20:30 94 21 134/85 (101) 97 07/08/19 20:00 75 07/08/19 20:00 73 18 134/90 (105) 97 07/08/19 20:00 30 07/08/19 20:00 Mechanical Ventilator 07/08/19 20:00 18 Mechanical Ventilator 30 07/08/19 19:30 98.5 67 18 126/76 (93) 97 07/08/19 19:25 67 18 100 Mechanical Ventilator 30 68 18 30 07/08/19 19:00 68 128/79 (95) 07/08/19 19:00 17 Mechanical Ventilator 30 Intake and Output 07/09/19 07/10/19 19:00 07:00 Intake Total 866 ml 600 ml Output Total 650 ml 800 ml Balance 216 ml -200 ml Intake IV Total 266 ml Tube Feeding 600 ml 600 ml Output Urine Total 650 ml 800 ml Labs Test 07/08/19 04:00 07/09/19 03:00 07/09/19 12:14 07/09/19 15:43 White Blood Count 13.1 K/UL (4.8-10.8) 12.1 K/UL (4.8-10.8) Red Blood Count 2.76 M/UL (4.20-5.40) 2.56 M/UL (4.20-5.40) Hemoglobin 8.6 G/DL (12.0-16.0) 8.1 G/DL (12.0-16.0) Hematocrit 26.4 % (37.0-47.0) 24.6 % (37.0-47.0) Mean Corpuscular Volume 96 FL (80-99) 96 FL (80-99) Mean Corpuscular Hemoglobin 31.0 PG (27.0-31.0) 31.4 PG (27.0-31.0) Mean Corpuscular Hemoglobin Concent 32.4 G/DL (32.0-36.0) 32.8 G/DL (32.0-36.0) Red Cell Distribution Width 15.4 % (11.6-14.8) 15.0 % (11.6-14.8) Platelet Count 207 K/UL (150-450) 219 K/UL (150-450) Mean Platelet Volume 8.2 FL (6.5-10.1) 7.7 FL (6.5-10.1) Neutrophils (%) (Auto) 81.1 % (45.0-75.0) 81.6 % (45.0-75.0) Lymphocytes (%) (Auto) 8.3 % (20.0-45.0) 8.1 % (20.0-45.0) Monocytes (%) (Auto) 9.6 % (1.0-10.0) 8.4 % (1.0-10.0) Eosinophils (%) (Auto) 0.4 % (0.0-3.0) 0.9 % (0.0-3.0) Basophils (%) (Auto) 0.6 % (0.0-2.0) 1.0 % (0.0-2.0) Sodium Level 140 MMOL/L (136-145) 143 MMOL/L (136-145) Potassium Level 4.2 MMOL/L (3.5-5.1) 4.6 MMOL/L (3.5-5.1) Chloride Level 110 MMOL/L (98-107) 114 MMOL/L (98-107) Carbon Dioxide Level 19 MMOL/L (21-32) 19 MMOL/L (21-32) Anion Gap 11 mmol/L (5-15) 10 mmol/L (5-15) Blood Urea Nitrogen 16 mg/dL (7-18) 18 mg/dL (7-18) Creatinine 1.5 MG/DL (0.55-1.30) 1.4 MG/DL (0.55-1.30) Estimat Glomerular Filtration Rate 42.9 mL/min (>60) 46.5 mL/min (>60) Glucose Level 100 MG/DL (74-106) 120 MG/DL (74-106) Calcium Level 8.0 MG/DL (8.5-10.1) 8.0 MG/DL (8.5-10.1) Total Bilirubin 0.5 MG/DL (0.2-1.0) 0.3 MG/DL (0.2-1.0) Aspartate Amino Transf (AST/SGOT) 17 U/L (15-37) 15 U/L (15-37) Alanine Aminotransferase (ALT/SGPT) 86 U/L (12-78) 57 U/L (12-78) Alkaline Phosphatase 56 U/L (46-116) 54 U/L (46-116) Total Protein 5.8 G/DL (6.4-8.2) 5.2 G/DL (6.4-8.2) Albumin 2.1 G/DL (3.4-5.0) 1.9 G/DL (3.4-5.0) Globulin 3.7 g/dL 3.3 g/dL Albumin/Globulin Ratio 0.6 (1.0-2.7) 0.6 (1.0-2.7) Lipase 389 U/L (73-393) Arterial Blood pH 7.337 (7.350-7.450) Arterial Blood Partial Pressure CO2 32.4 mmHg (35.0-45.0) Arterial Blood Partial Pressure O2 87.7 mmHg (75.0-100.0) Arterial Blood HCO3 17.0 mmol/L (22.0-26.0) Arterial Blood Oxygen Saturation 96.1 % (95-100) Arterial Blood Base Excess -8.0 (-2-2) Maxim Test Positive Random Vancomycin Level 9.2 ug/mL Test 07/10/19 04:25 07/10/19 13:45 07/10/19 15:35 07/10/19 18:25 White Blood Count 12.6 K/UL (4.8-10.8) Red Blood Count 2.56 M/UL (4.20-5.40) Hemoglobin 7.9 G/DL (12.0-16.0) Hematocrit 24.4 % (37.0-47.0) Mean Corpuscular Volume 96 FL (80-99) Mean Corpuscular Hemoglobin 30.9 PG (27.0-31.0) Mean Corpuscular Hemoglobin Concent 32.4 G/DL (32.0-36.0) Red Cell Distribution Width 14.8 % (11.6-14.8) Platelet Count 224 K/UL (150-450) Mean Platelet Volume 7.1 FL (6.5-10.1) Neutrophils (%) (Auto) % (45.0-75.0) Lymphocytes (%) (Auto) % (20.0-45.0) Monocytes (%) (Auto) % (1.0-10.0) Eosinophils (%) (Auto) % (0.0-3.0) Basophils (%) (Auto) % (0.0-2.0) Sodium Level 146 MMOL/L (136-145) Potassium Level 4.2 MMOL/L (3.5-5.1) Chloride Level 114 MMOL/L (98-107) Carbon Dioxide Level 23 MMOL/L (21-32) Anion Gap 9 mmol/L (5-15) Blood Urea Nitrogen 17 mg/dL (7-18) Creatinine 1.4 MG/DL (0.55-1.30) Estimat Glomerular Filtration Rate 46.5 mL/min (>60) Glucose Level 117 MG/DL (74-106) Calcium Level 8.3 MG/DL (8.5-10.1) Prothrombin Time 10.6 SEC (9.30-11.50) Prothromb Time International Ratio 1.0 (0.9-1.1) Activated Partial Thromboplast Time 27 SEC (23-33) Arterial Blood pH 7.416 (7.350-7.450) Arterial Blood Partial Pressure CO2 35.1 mmHg (35.0-45.0) Arterial Blood Partial Pressure O2 89.8 mmHg (75.0-100.0) Arterial Blood HCO3 22.1 mmol/L (22.0-26.0) Arterial Blood Oxygen Saturation 96.2 % (95-100) Arterial Blood Base Excess -2.1 (-2-2) Maxim Test Positive Height (Feet): 5 Height (Inches): 4.00 Weight (Pounds): 165 Objective Physical Exam: Vitals: reviewed General Appearance: NAD HEENT: normocephalic, atraumatic ++ trach VENT Neck: non-tender, normal alignment Respiratory/Chest: normal breath sounds bilaterally Cardiovascular/Chest: normal peripheral pulses, normal rate Abdomen: normal bowel sounds, soft, nontender Extremities: normal range of motion Jordan Nguyen MD Jul 10, 2019 18:59
[2019-07-10] MEDS ORDERED: Vancomycin 1.5gm Premix IVPB ONE (21:00)
[2019-07-10] MEDS: Epoetin Alfa-EPBX(ESRD on dialysis)4000 units/ml vial SUBQ SCH (21:37)
--- NOTE | 2019-07-10 22:11 | General Progress Note ---
Assessment/Plan Status: stable, progressing Assessment/Plan: Assessment - Angioedema, s/p emergency trach - abnormal LFT, ? Rhabdo related - improving - borderline CBD dilation on U/S - abnormal Lipase, ? significance - dysphagia, did not pass swallow - now with NJT - Thrombocytopenia - improved - HIV (+) - Drug abuse Recommendations - Continue tube feeds - Scheduled for PEG TH am , patient agreeable - Monitor labs - will consider CT imaging of abd once out of ICU - Pepcid Subjective Allergies: Coded Allergies: No Known Allergies (Unverified , 06/29/19) Subjective awake d/w patient re indications for PEG agreed to proceed with placement tomorrow Objective Last 24 Hour Vital Signs Date Time Temp Pulse Resp B/P (MAP) Pulse Ox O2 Delivery O2 Flow Rate FiO2 07/10/19 21:37 98.0 07/10/19 21:00 83 16 156/139 (145) 100 07/10/19 20:00 98.0 83 10 148/83 (104) 100 07/10/19 20:00 8.0 30 07/10/19 20:00 Mechanical Ventilator 07/10/19 20:00 83 07/10/19 19:09 74 22 100 T-Piece 8.0 30 07/10/19 19:09 100 T-Piece 8.0 30 07/10/19 19:00 75 34 146/82 (103) 100 07/10/19 18:00 82 20 161/101 (121) 100 07/10/19 17:00 85 27 148/90 (109) 100 07/10/19 16:00 Mechanical Ventilator 07/10/19 16:00 70 07/10/19 16:00 99.0 78 26 124/73 (90) 99 07/10/19 16:00 8.0 30 07/10/19 15:54 100 T-Piece 8.0 30 07/10/19 15:53 78 24 100 T-Piece 8.0 30 07/10/19 15:11 84 18 100 T-Piece 8.0 30 07/10/19 15:00 76 10 129/81 (97) 100 07/10/19 14:08 99.1 07/10/19 14:00 72 21 121/81 (94) 100 07/10/19 13:00 73 30 124/74 (91) 100 07/10/19 12:41 71 27 100 T-Piece 8.0 30 07/10/19 12:00 71 07/10/19 12:00 Mechanical Ventilator 07/10/19 12:00 99.1 87 21 136/79 (98) 94 07/10/19 11:10 82 20 100 T-Piece 8.0 30 07/10/19 11:00 81 3 133/82 (99) 100 07/10/19 10:00 80 11 126/81 (96) 100 07/10/19 09:00 76 31 136/83 (100) 100 07/10/19 08:55 100 07/10/19 08:55 78 24 T-Piece 8.0 30 07/10/19 08:55 8.0 30 07/10/19 08:00 73 07/10/19 08:00 Mechanical Ventilator 07/10/19 08:00 30 07/10/19 08:00 73 18 110/68 (82) 100 07/10/19 07:00 98.7 72 18 125/86 (99) 100 07/10/19 06:38 74 18 30 07/10/19 06:00 73 18 116/73 (87) 100 07/10/19 05:00 99.1 106 27 138/95 (109) 100 07/10/19 04:50 80 21 30 07/10/19 04:00 81 20 146/73 (97) 100 07/10/19 04:00 81 07/10/19 04:00 30 07/10/19 04:00 Mechanical Ventilator 07/10/19 03:01 88 22 30 07/10/19 03:00 81 18 121/79 (93) 100 07/10/19 02:00 98.4 88 21 127/80 (96) 100 07/10/19 02:00 98.4 07/10/19 01:00 101 27 140/97 (111) 100 07/10/19 00:59 86 21 30 07/10/19 00:00 95 07/10/19 00:00 100.2 95 18 111/73 (86) 100 07/10/19 00:00 30 07/10/19 00:00 Mechanical Ventilator 07/09/19 23:00 100 29 119/79 (92) 100 07/09/19 22:51 95 26 30 Intake and Output 07/09/19 07/10/19 19:00 07:00 Intake Total 866 ml 600 ml Output Total 650 ml 800 ml Balance 216 ml -200 ml Intake IV Total 266 ml Tube Feeding 600 ml 600 ml Output Urine Total 650 ml 800 ml Laboratory Tests 07/10/19 04:25: White Blood Count 12.6H, Red Blood Count 2.56L, Hemoglobin 7.9L, Hematocrit 24.4L, Mean Corpuscular Volume 96, Mean Corpuscular Hemoglobin 30.9, Mean Corpuscular Hemoglobin Concent 32.4, Red Cell Distribution Width 14.8, Platelet Count 224, Mean Platelet Volume 7.1, Neutrophils (%) (Auto) , Lymphocytes (%) ( Auto) , Monocytes (%) (Auto) , Eosinophils (%) (Auto) , Basophils (%) (Auto) , Sodium Level 146H, Potassium Level 4.2, Chloride Level 114H, Carbon Dioxide Level 23, Anion Gap 9, Blood Urea Nitrogen 17, Creatinine 1.4H, Estimat Glomerular Filtration Rate 46.5, Glucose Level 117H, Calcium Level 8.3L 07/10/19 13:45: Prothrombin Time 10.6, Prothromb Time International Ratio 1.0, Activated Partial Thromboplast Time 27 07/10/19 15:35: Arterial Blood pH 7.416, Arterial Blood Partial Pressure CO2 35.1, Arterial Blood Partial Pressure O2 89.8, Arterial Blood HCO3 22.1, Arterial Blood Oxygen Saturation 96.2, Arterial Blood Base Excess -2.1L, Maxim Test Positive 07/10/19 18:25: Random Vancomycin Level 13.1 Height (Feet): 5 Height (Inches): 4.00 Weight (Pounds): 165 Objective WDWN AA woman NCAT (+) NGT (+) trach Coarse BS RR abd soft no edema Elisabeth Sommers MD Jul 10, 2019 22:11
[2019-07-11] VITALS (24 sets, daily range): BP systolic 128–167; BP diastolic 76–109
[2019-07-11 05:13] LABS: HEMATOCRIT 29.1 % (37.0-47.0); HEMOGLOBIN 9.6 G/DL (12.0-16.0); MEAN CORPUSCULAR VOLUME 94 FL (80-99); PLATELET COUNT 241 K/UL (150-450); RED BLOOD COUNT 3.08 M/UL (4.20-5.40); RED CELL DISTRIBUTION WIDTH 14.8 % (11.6-14.8); WHITE BLOOD COUNT 17.1 K/UL (4.8-10.8)
[2019-07-11 05:59] LABS: ANION GAP 8 mmol/L (5-15); BLOOD UREA NITROGEN 18 mg/dL (7-18); CALCIUM 8.7 MG/DL (8.5-10.1); CARBON DIOXIDE 26 MMOL/L (21-32); CHLORIDE 109 MMOL/L (98-107); CREATININE 1.3 MG/DL (0.55-1.30); POTASSIUM 4.1 MMOL/L (3.5-5.1); SODIUM 143 MMOL/L (136-145)
[2019-07-11] MEDS: NovoLOG Insulin Flexpen SUBQ SCH ×4 (06:18→20:45)
--- NOTE | 2019-07-11 08:34 | Critical Care Progress Note ---
Assessment/Plan Assessment/Plan Angioedema Severe Hypotension Previous Hypertension Cocaine abuse s/p emergent trach Anemia secondary to blood loss acute respiratory failure leukocytosis, possible steroid related thrombocytopenia renal failure, acute on chronic toxic metabolic encephalopathy HIV+ PLAN post op care iv steroids -off wbc still elevated heme, renal evaluation noted and reviewed; all noted ID follow up and recs vent support ---off for now on trach care plan for GT in am nutrition as tolerated monitor for bleeding ICU care support as able nutrition GI following and discussed monitor hemodynamics medications/laboratory data/nursing notes/ICU care reviewed in detail note reviewed and edited care discussed with RN and RT ICU time spent 40 minutes Critical Care - Subjective Interval Events: tolerating trach collar acid base noted gt in am ROS Limited/Unobtainable: Yes Condition: critical EKG Rhythm: Sinus Rhythm Residuals: minimal Tube Feeding Tolerated: yes I&O: Intake and Output 07/10/19 07/11/19 19:00 07:00 Intake Total 992 ml 475.0 ml Output Total 780 ml 1140 ml Balance 212 ml -665.0 ml Intake IV Total 332 ml 275.0 ml Tube Feeding 600 ml 200 ml Other 60 ml Output Urine Total 780 ml 1140 ml # Bowel Movements 2 Critical Care - Objective Last 24 Hour Vital Signs Date Time Temp Pulse Resp B/P (MAP) Pulse Ox O2 Delivery O2 Flow Rate FiO2 07/11/19 08:00 8.0 30 07/11/19 08:00 80 07/11/19 08:00 80 29 151/86 (107) 99 07/11/19 08:00 Mechanical Ventilator 07/11/19 07:21 77 20 98 T-Piece 8.0 30 07/11/19 07:20 98 T-Piece 8.0 30 07/11/19 07:00 73 27 139/89 (106) 97 07/11/19 06:48 98.5 07/11/19 06:00 91 27 167/86 (113) 100 07/11/19 05:00 78 28 144/79 (100) 100 07/11/19 04:00 75 07/11/19 04:00 Mechanical Ventilator 07/11/19 04:00 8.0 30 07/11/19 04:00 98.5 75 20 154/109 (124) 100 07/11/19 03:00 75 19 151/91 (111) 100 8/29/19 02:00 76 22 141/84 (103) 100 07/11/19 01:05 100 T-Piece 8.0 30 07/11/19 01:00 87 22 161/90 (113) 100 07/11/19 00:00 8.0 30 07/11/19 00:00 Mechanical Ventilator 07/11/19 00:00 98.2 85 25 141/83 (102) 100 07/11/19 00:00 85 07/10/19 23:00 84 29 163/93 (116) 100 07/10/19 22:00 80 25 128/78 (95) 100 07/10/19 21:00 83 16 156/139 (145) 100 07/10/19 20:00 98.0 83 10 148/83 (104) 100 07/10/19 20:00 8.0 30 07/10/19 20:00 Mechanical Ventilator 07/10/19 20:00 83 07/10/19 19:09 74 22 100 T-Piece 8.0 30 07/10/19 19:09 100 T-Piece 8.0 30 07/10/19 19:00 75 34 146/82 (103) 100 07/10/19 18:00 82 20 161/101 (121) 100 07/10/19 17:00 85 27 148/90 (109) 100 07/10/19 16:00 Mechanical Ventilator 07/10/19 16:00 70 07/10/19 16:00 99.0 78 26 124/73 (90) 99 07/10/19 16:00 8.0 30 07/10/19 15:54 100 T-Piece 8.0 30 07/10/19 15:53 78 24 100 T-Piece 8.0 30 07/10/19 15:11 84 18 100 T-Piece 8.0 30 07/10/19 15:00 76 10 129/81 (97) 100 07/10/19 14:08 99.1 07/10/19 14:00 72 21 121/81 (94) 100 07/10/19 13:00 73 30 124/74 (91) 100 07/10/19 12:41 71 27 100 T-Piece 8.0 30 07/10/19 12:00 71 07/10/19 12:00 Mechanical Ventilator 07/10/19 12:00 99.1 87 21 136/79 (98) 94 07/10/19 11:10 82 20 100 T-Piece 8.0 30 07/10/19 11:00 81 3 133/82 (99) 100 07/10/19 10:00 80 11 126/81 (96) 100 07/10/19 09:00 76 31 136/83 (100) 100 07/10/19 08:55 100 07/10/19 08:55 78 24 T-Piece 8.0 30 07/10/19 08:55 8.0 30 Labs: Labs Test 07/09/19 03:00 07/09/19 12:14 07/09/19 15:43 07/10/19 04:25 White Blood Count 12.1 K/UL (4.8-10.8) 12.6 K/UL (4.8-10.8) Red Blood Count 2.56 M/UL (4.20-5.40) 2.56 M/UL (4.20-5.40) Hemoglobin 8.1 G/DL (12.0-16.0) 7.9 G/DL (12.0-16.0) Hematocrit 24.6 % (37.0-47.0) 24.4 % (37.0-47.0) Mean Corpuscular Volume 96 FL (80-99) 96 FL (80-99) Mean Corpuscular Hemoglobin 31.4 PG (27.0-31.0) 30.9 PG (27.0-31.0) Mean Corpuscular Hemoglobin Concent 32.8 G/DL (32.0-36.0) 32.4 G/DL (32.0-36.0) Red Cell Distribution Width 15.0 % (11.6-14.8) 14.8 % (11.6-14.8) Platelet Count 219 K/UL (150-450) 224 K/UL (150-450) Mean Platelet Volume 7.7 FL (6.5-10.1) 7.1 FL (6.5-10.1) Neutrophils (%) (Auto) 81.6 % (45.0-75.0) % (45.0-75.0) Lymphocytes (%) (Auto) 8.1 % (20.0-45.0) % (20.0-45.0) Monocytes (%) (Auto) 8.4 % (1.0-10.0) % (1.0-10.0) Eosinophils (%) (Auto) 0.9 % (0.0-3.0) % (0.0-3.0) Basophils (%) (Auto) 1.0 % (0.0-2.0) % (0.0-2.0) Sodium Level 143 MMOL/L (136-145) 146 MMOL/L (136-145) Potassium Level 4.6 MMOL/L (3.5-5.1) 4.2 MMOL/L (3.5-5.1) Chloride Level 114 MMOL/L (98-107) 114 MMOL/L (98-107) Carbon Dioxide Level 19 MMOL/L (21-32) 23 MMOL/L (21-32) Anion Gap 10 mmol/L (5-15) 9 mmol/L (5-15) Blood Urea Nitrogen 18 mg/dL (7-18) 17 mg/dL (7-18) Creatinine 1.4 MG/DL (0.55-1.30) 1.4 MG/DL (0.55-1.30) Estimat Glomerular Filtration Rate 46.5 mL/min (>60) 46.5 mL/min (>60) Glucose Level 120 MG/DL (74-106) 117 MG/DL (74-106) Calcium Level 8.0 MG/DL (8.5-10.1) 8.3 MG/DL (8.5-10.1) Total Bilirubin 0.3 MG/DL (0.2-1.0) Aspartate Amino Transf (AST/SGOT) 15 U/L (15-37) Alanine Aminotransferase (ALT/SGPT) 57 U/L (12-78) Alkaline Phosphatase 54 U/L (46-116) Total Protein 5.2 G/DL (6.4-8.2) Albumin 1.9 G/DL (3.4-5.0) Globulin 3.3 g/dL Albumin/Globulin Ratio 0.6 (1.0-2.7) Lipase 389 U/L (73-393) Arterial Blood pH 7.337 (7.350-7.450) Arterial Blood Partial Pressure CO2 32.4 mmHg (35.0-45.0) Arterial Blood Partial Pressure O2 87.7 mmHg (75.0-100.0) Arterial Blood HCO3 17.0 mmol/L (22.0-26.0) Arterial Blood Oxygen Saturation 96.1 % (95-100) Arterial Blood Base Excess -8.0 (-2-2) Maxim Test Positive Random Vancomycin Level 9.2 ug/mL Test 07/10/19 13:45 07/10/19 15:35 07/10/19 18:25 07/11/19 03:30 Prothrombin Time 10.6 SEC (9.30-11.50) Prothromb Time International Ratio 1.0 (0.9-1.1) Activated Partial Thromboplast Time 27 SEC (23-33) Arterial Blood pH 7.416 (7.350-7.450) Arterial Blood Partial Pressure CO2 35.1 mmHg (35.0-45.0) Arterial Blood Partial Pressure O2 89.8 mmHg (75.0-100.0) Arterial Blood HCO3 22.1 mmol/L (22.0-26.0) Arterial Blood Oxygen Saturation 96.2 % (95-100) Arterial Blood Base Excess -2.1 (-2-2) Maxim Test Positive Random Vancomycin Level 13.1 ug/mL White Blood Count 17.1 K/UL (4.8-10.8) Red Blood Count 3.08 M/UL (4.20-5.40) Hemoglobin 9.6 G/DL (12.0-16.0) Hematocrit 29.1 % (37.0-47.0) Mean Corpuscular Volume 94 FL (80-99) Mean Corpuscular Hemoglobin 31.1 PG (27.0-31.0) Mean Corpuscular Hemoglobin Concent 32.9 G/DL (32.0-36.0) Red Cell Distribution Width 14.8 % (11.6-14.8) Platelet Count 241 K/UL (150-450) Mean Platelet Volume 7.1 FL (6.5-10.1) Neutrophils (%) (Auto) % (45.0-75.0) Lymphocytes (%) (Auto) % (20.0-45.0) Monocytes (%) (Auto) % (1.0-10.0) Eosinophils (%) (Auto) % (0.0-3.0) Basophils (%) (Auto) % (0.0-2.0) Sodium Level 143 MMOL/L (136-145) Potassium Level 4.1 MMOL/L (3.5-5.1) Chloride Level 109 MMOL/L (98-107) Carbon Dioxide Level 26 MMOL/L (21-32) Anion Gap 8 mmol/L (5-15) Blood Urea Nitrogen 18 mg/dL (7-18) Creatinine 1.3 MG/DL (0.55-1.30) Estimat Glomerular Filtration Rate 50.7 mL/min (>60) Glucose Level 76 MG/DL (74-106) Calcium Level 8.7 MG/DL (8.5-10.1) Objective: WDWN on trach and off vent reduced LOC reduced breath sounds bilaterally without rhonchi or wheeze [id number] without MRG NABS nontender no HSM no CCE nonfocal and alert and eyes open NABS nontender no distention; NGT reviewed and edited Accucheck: 85 Radames Ray MD Jul 11, 2019 08:34
[2019-07-11] MEDS: Solu-MEDROL 40mg Inj IVP SCH (08:38)
[2019-07-11] MEDS: Magnesium Oxide 400mg tab NG SCH ×3 (08:38→17:08)
[2019-07-11] MEDS: Thiamine HCl 100 MG in D5W 55 ML IVPB SCH (08:38)
[2019-07-11] MEDS: Atovaquone 750mg/5ml Susp NG SCH (08:38)
--- NOTE | 2019-07-11 09:29 | General Progress Note ---
Assessment/Plan Problem List: (1) Tracheostomy hemorrhage ICD Codes: J95.01 - Hemorrhage from tracheostomy stoma SNOMED: 58161831 (2) Tracheostomy complication ICD Codes: J95.00 - Unspecified tracheostomy complication SNOMED: 45441327 (3) Cocaine abuse ICD Codes: F14.10 - Cocaine abuse, uncomplicated SNOMED: 63338185 (4) Angioedema ICD Codes: T78.3XXA - Angioneurotic edema, initial encounter SNOMED: 83118805 Qualifiers: Qualified Codes: T78.3XXA - Angioneurotic edema, initial encounter (5) Hypertension ICD Codes: I10 - Essential (primary) hypertension SNOMED: 81032261 Qualifiers: Qualified Codes: I10 - Essential (primary) hypertension Status: stable, progressing Assessment/Plan: trach care resp care monitor for bleeding, monitor labs trend wbc pain rx wean sedation anxiolytics as needed GT by GI Subjective ROS Limited/Unobtainable: No Constitutional: Reports: malaise, weakness HEENT: Reports: no symptoms Cardiovascular: Reports: no symptoms Respiratory: Reports: cough Gastrointestinal/Abdominal: Reports: difficulty swallowing Genitourinary: Reports: no symptoms Neurologic/Psychiatric: Reports: anxiety, emotional problems Endocrine: Reports: no symptoms Hematologic/Lymphatic: Reports: no symptoms Allergies: Coded Allergies: No Known Allergies (Unverified , 06/29/19) All Systems: reviewed and negative except above Subjective off the vent. on t bar. less anxious. on ivf. awaiting gt placment. no new complaints. labs noted. WBC trendign up Objective Last 24 Hour Vital Signs Date Time Temp Pulse Resp B/P (MAP) Pulse Ox O2 Delivery O2 Flow Rate FiO2 07/11/19 09:00 98.3 77 13 148/86 (106) 99 07/11/19 08:00 8.0 30 07/11/19 08:00 80 07/11/19 08:00 80 29 151/86 (107) 99 07/11/19 08:00 Mechanical Ventilator 07/11/19 07:21 77 20 98 T-Piece 8.0 30 07/11/19 07:20 98 T-Piece 8.0 30 07/11/19 07:00 73 27 139/89 (106) 97 07/11/19 06:48 98.5 07/11/19 06:00 91 27 167/86 (113) 100 07/11/19 05:00 78 28 144/79 (100) 100 07/11/19 04:00 75 07/11/19 04:00 Mechanical Ventilator 07/11/19 04:00 8.0 30 07/11/19 04:00 98.5 75 20 154/109 (124) 100 07/11/19 03:00 75 19 151/91 (111) 100 07/11/19 02:00 76 22 141/84 (103) 100 07/11/19 01:05 100 T-Piece 8.0 30 07/11/19 01:00 87 22 161/90 (113) 100 07/11/19 00:00 8.0 30 07/11/19 00:00 Mechanical Ventilator 07/11/19 00:00 98.2 85 25 141/83 (102) 100 07/11/19 00:00 85 07/10/19 23:00 84 29 163/93 (116) 100 07/10/19 22:00 80 25 128/78 (95) 100 07/10/19 21:00 83 16 156/139 (145) 100 07/10/19 20:00 98.0 83 10 148/83 (104) 100 07/10/19 20:00 8.0 30 07/10/19 20:00 Mechanical Ventilator 07/10/19 20:00 83 07/10/19 19:09 74 22 100 T-Piece 8.0 30 07/10/19 19:09 100 T-Piece 8.0 30 07/10/19 19:00 75 34 146/82 (103) 100 07/10/19 18:00 82 20 161/101 (121) 100 07/10/19 17:00 85 27 148/90 (109) 100 07/10/19 16:00 Mechanical Ventilator 07/10/19 16:00 70 07/10/19 16:00 99.0 78 26 124/73 (90) 99 07/10/19 16:00 8.0 30 07/10/19 15:54 100 T-Piece 8.0 30 07/10/19 15:53 78 24 100 T-Piece 8.0 30 07/10/19 15:11 84 18 100 T-Piece 8.0 30 07/10/19 15:00 76 10 129/81 (97) 100 07/10/19 14:08 99.1 07/10/19 14:00 72 21 121/81 (94) 100 07/10/19 13:00 73 30 124/74 (91) 100 07/10/19 12:41 71 27 100 T-Piece 8.0 30 07/10/19 12:00 71 07/10/19 12:00 Mechanical Ventilator 07/10/19 12:00 99.1 87 21 136/79 (98) 94 07/10/19 11:10 82 20 100 T-Piece 8.0 30 07/10/19 11:00 81 3 133/82 (99) 100 07/10/19 10:00 80 11 126/81 (96) 100 Intake and Output 07/10/19 07/11/19 19:00 07:00 Intake Total 992 ml 475.0 ml Output Total 780 ml 1140 ml Balance 212 ml -665.0 ml Intake IV Total 332 ml 275.0 ml Tube Feeding 600 ml 200 ml Other 60 ml Output Urine Total 780 ml 1140 ml # Bowel Movements 2 Laboratory Tests 07/10/19 13:45: Prothrombin Time 10.6, Prothromb Time International Ratio 1.0, Activated Partial Thromboplast Time 27 07/10/19 15:35: Arterial Blood pH 7.416, Arterial Blood Partial Pressure CO2 35.1, Arterial Blood Partial Pressure O2 89.8, Arterial Blood HCO3 22.1, Arterial Blood Oxygen Saturation 96.2, Arterial Blood Base Excess -2.1L, Maxim Test Positive 07/10/19 18:25: Random Vancomycin Level 13.1 07/11/19 03:30: White Blood Count 17.1H, Red Blood Count 3.08L, Hemoglobin 9.6L, Hematocrit 29.1L, Mean Corpuscular Volume 94, Mean Corpuscular Hemoglobin 31.1H, Mean Corpuscular Hemoglobin Concent 32.9, Red Cell Distribution Width 14.8, Platelet Count 241, Mean Platelet Volume 7.1, Neutrophils (%) (Auto) , Lymphocytes (%) ( Auto) , Monocytes (%) (Auto) , Eosinophils (%) (Auto) , Basophils (%) (Auto) , Differential Total Cells Counted 100, Neutrophils % (Manual) 86H, Lymphocytes % (Manual) 4L, Monocytes % (Manual) 8, Eosinophils % (Manual) 2, Basophils % ( Manual) 0, Band Neutrophils 0, Platelet Estimate Adequate, Platelet Morphology Normal, Anisocytosis 1+, Sodium Level 143, Potassium Level 4.1, Chloride Level 109H, Carbon Dioxide Level 26, Anion Gap 8, Blood Urea Nitrogen 18, Creatinine 1.3, Estimat Glomerular Filtration Rate 50.7, Glucose Level 76, Calcium Level 8.7 Height (Feet): 5 Height (Inches): 3.00 Weight (Pounds): 175 Objective General Appearance: WD/WN, alert Neck: supple, other - trach midline Cardiovascular: normal rate, regular rhythm Respiratory/Chest: chest wall non-tender, lungs clear, normal breath sounds, no respiratory distress Abdomen: normal bowel sounds, non tender, soft, no organomegaly Edema: no edema noted Arm (L), no edema noted Arm (R), no edema noted Leg (L), no edema noted Leg (R), no edema noted Pedal (L), no edema noted Pedal (R), no edema noted Generalized Danis Markham MD Jul 11, 2019 09:29
--- NOTE | 2019-07-11 09:53 | Infectious Diseases Prog Note ---
Assessment/Plan Assessment/Plan A 1. leucocytosis i 2. angioedema 3. respiratory failure s/p emergent tracheostomy 4. HIV, AIDS 5. renal failure improving 6. tracheostomy site infection P 1. Continue PCP Prophylaxis with Mepron 2. Change Cefepime to Levaquin 3. Continue IV Vancomycin Subjective ROS Limited/Unobtainable: Yes Constitutional: Reports: no symptoms Respiratory: Reports: productive cough, other - off of ventilator Musculoskeletal: Reports: no symptoms Allergies: Coded Allergies: No Known Allergies (Unverified , 06/29/19) Objective Vital Signs Last 24 Hour Vital Signs Date Time Temp Pulse Resp B/P (MAP) Pulse Ox O2 Delivery O2 Flow Rate FiO2 07/11/19 09:00 98.3 77 13 148/86 (106) 99 07/11/19 08:00 8.0 30 07/11/19 08:00 80 07/11/19 08:00 80 29 151/86 (107) 99 07/11/19 08:00 Mechanical Ventilator 07/11/19 07:21 77 20 98 T-Piece 8.0 30 07/11/19 07:20 98 T-Piece 8.0 30 07/11/19 07:00 73 27 139/89 (106) 97 07/11/19 06:48 98.5 07/11/19 06:00 91 27 167/86 (113) 100 07/11/19 05:00 78 28 144/79 (100) 100 07/11/19 04:00 75 07/11/19 04:00 Mechanical Ventilator 07/11/19 04:00 8.0 30 07/11/19 04:00 98.5 75 20 154/109 (124) 100 07/11/19 03:00 75 19 151/91 (111) 100 07/11/19 02:00 76 22 141/84 (103) 100 07/11/19 01:05 100 T-Piece 8.0 30 07/11/19 01:00 87 22 161/90 (113) 100 07/11/19 00:00 8.0 30 07/11/19 00:00 Mechanical Ventilator 07/11/19 00:00 98.2 85 25 141/83 (102) 100 07/11/19 00:00 85 07/10/19 23:00 84 29 163/93 (116) 100 07/10/19 22:00 80 25 128/78 (95) 100 07/10/19 21:00 83 16 156/139 (145) 100 07/10/19 20:00 98.0 83 10 148/83 (104) 100 07/10/19 20:00 8.0 30 07/10/19 20:00 Mechanical Ventilator 07/10/19 20:00 83 07/10/19 19:09 74 22 100 T-Piece 8.0 30 07/10/19 19:09 100 T-Piece 8.0 30 07/10/19 19:00 75 34 146/82 (103) 100 07/10/19 18:00 82 20 161/101 (121) 100 07/10/19 17:00 85 27 148/90 (109) 100 07/10/19 16:00 Mechanical Ventilator 07/10/19 16:00 70 07/10/19 16:00 99.0 78 26 124/73 (90) 99 07/10/19 16:00 8.0 30 07/10/19 15:54 100 T-Piece 8.0 30 07/10/19 15:53 78 24 100 T-Piece 8.0 30 07/10/19 15:11 84 18 100 T-Piece 8.0 30 07/10/19 15:00 76 10 129/81 (97) 100 07/10/19 14:08 99.1 07/10/19 14:00 72 21 121/81 (94) 100 07/10/19 13:00 73 30 124/74 (91) 100 07/10/19 12:41 71 27 100 T-Piece 8.0 30 07/10/19 12:00 71 07/10/19 12:00 Mechanical Ventilator 07/10/19 12:00 99.1 87 21 136/79 (98) 94 07/10/19 11:10 82 20 100 T-Piece 8.0 30 07/10/19 11:00 81 3 133/82 (99) 100 07/10/19 10:00 80 11 126/81 (96) 100 Height (Feet): 5 Height (Inches): 3.00 Weight (Pounds): 175 HEENT: mucous membranes moist, status post trach Respiratory/Chest: lungs clear, other - on T bar Cardiovascular: normal rate Abdomen: soft, non tender, other - NG tube Extremities: no edema Neurologic/Psychiatric: alert, oriented x 3, responsive Laboratory Tests Test 07/10/19 13:45 07/10/19 15:35 07/10/19 18:25 07/11/19 03:30 Prothrombin Time 10.6 SEC (9.30-11.50) Prothromb Time International Ratio 1.0 (0.9-1.1) Activated Partial Thromboplast Time 27 SEC (23-33) Arterial Blood pH 7.416 (7.350-7.450) Arterial Blood Partial Pressure CO2 35.1 mmHg (35.0-45.0) Arterial Blood Partial Pressure O2 89.8 mmHg (75.0-100.0) Arterial Blood HCO3 22.1 mmol/L (22.0-26.0) Arterial Blood Oxygen Saturation 96.2 % (95-100) Arterial Blood Base Excess -2.1 (-2-2) L Maxim Test Positive Random Vancomycin Level 13.1 ug/mL White Blood Count 17.1 K/UL (4.8-10.8) H Red Blood Count 3.08 M/UL (4.20-5.40) L Hemoglobin 9.6 G/DL (12.0-16.0) L Hematocrit 29.1 % (37.0-47.0) L Mean Corpuscular Volume 94 FL (80-99) Mean Corpuscular Hemoglobin 31.1 PG (27.0-31.0) H Mean Corpuscular Hemoglobin Concent 32.9 G/DL (32.0-36.0) Red Cell Distribution Width 14.8 % (11.6-14.8) Platelet Count 241 K/UL (150-450) Mean Platelet Volume 7.1 FL (6.5-10.1) Neutrophils (%) (Auto) % (45.0-75.0) Lymphocytes (%) (Auto) % (20.0-45.0) Monocytes (%) (Auto) % (1.0-10.0) Eosinophils (%) (Auto) % (0.0-3.0) Basophils (%) (Auto) % (0.0-2.0) Differential Total Cells Counted 100 Neutrophils % (Manual) 86 % (45-75) H Lymphocytes % (Manual) 4 % (20-45) L Monocytes % (Manual) 8 % (1-10) Eosinophils % (Manual) 2 % (0-3) Basophils % (Manual) 0 % (0-2) Band Neutrophils 0 % (0-8) Platelet Estimate Adequate Platelet Morphology Normal Anisocytosis 1+ Sodium Level 143 MMOL/L (136-145) Potassium Level 4.1 MMOL/L (3.5-5.1) Chloride Level 109 MMOL/L (98-107) H Carbon Dioxide Level 26 MMOL/L (21-32) Anion Gap 8 mmol/L (5-15) Blood Urea Nitrogen 18 mg/dL (7-18) Creatinine 1.3 MG/DL (0.55-1.30) Estimat Glomerular Filtration Rate 50.7 mL/min (>60) Glucose Level 76 MG/DL (74-106) Calcium Level 8.7 MG/DL (8.5-10.1) Current Medications Medications (Trade) Dose Ordered Sig/Dmitri Route PRN Reason Start Time Stop Time Status Last Admin Dose Admin Acetaminophen (Tylenol) 650 mg Q4H PRN NG Mild Pain/fever 07/10/19 13:30 08/09/19 13:29 07/10/19 13:38 Acetaminophen (Tylenol) 650 mg Q4H PRN RECTAL FEVER 07/10/19 13:45 07/29/19 11:00 Atovaquone (Mepron Susp) 1,500 mg DAILY NG 07/07/19 12:30 08/06/19 12:29 07/11/19 08:38 Cefepime HCl 2 gm/ Dextrose 110 ml @ 220 mls/hr Q24H IV 07/07/19 12:00 07/14/19 11:59 07/10/19 11:53 Clonazepam (KlonoPIN) 1 mg Q6H PRN NG For Anxiety 07/10/19 13:45 07/16/19 09:14 Clonidine HCl (Catapres TTS-1) 1 patch QWEEK TDERMAL 07/04/19 15:00 08/03/19 14:59 07/04/19 15:47 Dextrose (Dextrose 50%) 25 ml Q30M PRN IV Hypoglycemia 06/30/19 15:00 07/30/19 14:59 Dextrose (Dextrose 50%) 50 ml Q30M PRN IV Hypoglycemia 06/30/19 15:00 07/30/19 14:59 Diphenhydramine HCl (Benadryl) 25 mg Q6H PRN IVP Muscle Spasm 06/29/19 11:01 07/29/19 11:00 07/10/19 23:01 Epinephrine 1 mg/ Dextrose 250 ml @ 0 mls/hr Q24H IV 06/29/19 16:00 07/29/19 15:59 Epoetin Eric (Epoetin Eric(ESRD on dialysis)) 8,000 unit MON- SUBQ 07/01/19 21:00 07/31/19 20:59 07/10/19 21:37 Famotidine (Pepcid I.v.) 20 mg Q12HR IVP 06/30/19 21:00 07/30/19 20:59 07/11/19 08:38 Fentanyl Citrate 2500 mcg/Sodium Chloride 250 ml @ 0 mls/hr Q24H IV 06/29/19 12:30 07/13/19 12:29 07/09/19 03:35 Hydralazine HCl (Apresoline) 10 mg Q2H PRN IV For High Blood Pressure 07/02/19 21:15 08/01/19 21:14 07/04/19 18:32 Hydromorphone HCl (Dilaudid) 2 mg Q3H PRN IVP SEVERE BREAKTHROUGH PAIN 07/06/19 13:45 07/13/19 13:44 07/11/19 06:14 Insulin Aspart (NovoLOG) BEFORE MEALS AND HS SUBQ 06/30/19 16:30 07/30/19 16:29 07/10/19 12:03 Magnesium Oxide (Mag-Ox 400mg) 400 mg THREE TIMES A DAY NG 07/07/19 13:00 08/06/19 12:59 07/10/19 18:10 Methylprednisolone Sodium Succinate (Solu-MEDROL) 40 mg DAILY IVP 07/05/19 09:00 07/29/19 13:59 07/11/19 08:38 Metoclopramide HCl (Reglan) 10 mg Q6H PRN IVP Nausea & Vomiting 06/29/19 11:01 07/29/19 11:00 Norepinephrine Bitartrate 8 mg/ Dextrose 508 ml @ 0 mls/hr Q24H IV 06/29/19 12:30 07/29/19 12:29 06/30/19 11:42 Ondansetron HCl (Zofran) 4 mg Q6H PRN IVP Nausea & Vomiting 06/29/19 11:01 07/29/19 11:00 Thiamine HCl 100 mg/Dextrose 56 ml @ 112 mls/hr DAILY IVPB 07/03/19 11:00 08/02/19 10:59 07/11/19 08:38 Vancomycin HCl (Vanco rx to dose) 1 ea DAILY PRN MISC Per rx protocol 07/08/19 12:00 08/07/19 11:59 Vasopressin 100 units/Sodium Chloride 100 ml @ 2.4 mls/hr Q24H IV 06/29/19 14:15 07/29/19 14:14 06/30/19 15:40 Kwaku Garcia MD Jul 11, 2019 09:53
--- NOTE | 2019-07-11 10:26 | Hematology/Onc Progress Note ---
Assessment/Plan Assessment/Plan A/R # Thrombocytopenia - potential causes multifactorial, evaluate liver and viral etiologies to begin, also could be related to underlying medications patient has received. 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 Significance/etiology uncertain. This can be seen in chronic pancreatitis as well as ductectatic neoplasm--> once more stable get Ct with iv cont --> DIC panel has been reviewed, NEgative --> Peripheral smear ordered to evaluate for blasts /schistocytes and none noted --> abx and other meds have been reviewed --> ok for ppx if plt >50k w/ either heparin or lovenox --> Transfuse if Plt < 20k and fever, or if Plt < 10k without fever --> plt trend 200-->87-->60-->38k-> 50k-->91k-->110k-->138k-->184k->207k-->241k -> [id number] ordered -- > is neg --> ID eval and care per id # Anemia of chronic disease due to underlying chronic medical issues, multifactorial --> Anemia workup has been ordered and c/w acd --> No evidence of hemolysis is noted, peripheral smear has been reviewed. --> Hgb goal >7. Transfuse prn. --> Epogen or iron at this time is not particularly indicated --> Medications have been reviewed --> low threshold for gi evaluation in case has occult + --> hgb trend 8.7--> 9-->10.9-->9.7->8.6-->9.6 # Leukocytosis --> wbc trend 17-->15-->14k->16-->19.4-->15-->15.9-->13.6-->17.1 --> steriods for angioedema # Angioedeam --> ffp, steriods given --> s/p trach # Resp failure s/p trach --> to vent # Severe Hypotension --> is now off both pressors. # Hx of Hypertension # Cocaine abuse # ARF on HD now --> 07/02 --> now off hd # HIV++ The timing of this note does not necessarily reflect the time of the patient was seen. GREATLY APPRECIATE CONSULTATION. Subjective Allergies: Coded Allergies: No Known Allergies (Unverified , 06/29/19) Subjective 07/02: remains in the icu, onpressors and epogen, hgb stable 07/03: in icu, no events, on vent, no fever or chills, denies pain or sob 07/04: s/p vent/trach, on fentanyl gtt, id made aware of HIV++ 07/05: sedated, trach, off abx, labs reviewed 07/07: weaning off pressors, no fevers or chills, is on pcp ppx 07/08: weaning off vent, no bleeding, htn better on clonidine coughing intermittently 07/10: getting 1 unit prnc, weaning vent when possible 07/11: off the vent, on ivf, no complaints. on abx, labs noted, wbc trending up Objective Objective Current Medications Medications (Trade) Dose Ordered Sig/Dmitri Route PRN Reason Start Time Stop Time Status Last Admin Dose Admin Acetaminophen (Tylenol) 650 mg Q4H PRN NG Mild Pain/fever 07/10/19 13:30 08/09/19 13:29 07/10/19 13:38 Acetaminophen (Tylenol) 650 mg Q4H PRN RECTAL FEVER 07/10/19 13:45 07/29/19 11:00 Clonazepam (KlonoPIN) 1 mg Q6H PRN NG For Anxiety 07/10/19 13:45 07/16/19 09:14 Clonidine HCl (Catapres TTS-1) 1 patch QWEEK TDERMAL 07/04/19 15:00 08/03/19 14:59 07/04/19 15:47 Dextrose (Dextrose 50%) 25 ml Q30M PRN IV Hypoglycemia 06/30/19 15:00 07/30/19 14:59 Dextrose (Dextrose 50%) 50 ml Q30M PRN IV Hypoglycemia 06/30/19 15:00 07/30/19 14:59 Diphenhydramine HCl (Benadryl) 25 mg Q6H PRN IVP Muscle Spasm 06/29/19 11:01 07/29/19 11:00 07/10/19 23:01 Epinephrine 1 mg/ Dextrose 250 ml @ 0 mls/hr Q24H IV 06/29/19 16:00 07/29/19 15:59 Epoetin Eric (Epoetin Eric(ESRD on dialysis)) 8,000 unit MON- SUBQ 07/01/19 21:00 07/31/19 20:59 07/10/19 21:37 Famotidine (Pepcid I.v.) 20 mg Q12HR IVP 06/30/19 21:00 07/30/19 20:59 07/11/19 08:38 Fentanyl Citrate 2500 mcg/Sodium Chloride 250 ml @ 0 mls/hr Q24H IV 06/29/19 12:30 07/13/19 12:29 07/09/19 03:35 Hydralazine HCl (Apresoline) 10 mg Q2H PRN IV For High Blood Pressure 07/02/19 21:15 08/01/19 21:14 07/04/19 18:32 Hydromorphone HCl (Dilaudid) 2 mg Q3H PRN IVP SEVERE BREAKTHROUGH PAIN 07/06/19 13:45 07/13/19 13:44 07/11/19 06:14 Insulin Aspart (NovoLOG) BEFORE MEALS AND HS SUBQ 06/30/19 16:30 07/30/19 16:29 07/10/19 12:03 Magnesium Oxide (Mag-Ox 400mg) 400 mg THREE TIMES A DAY NG 07/07/19 13:00 08/06/19 12:59 07/10/19 18:10 Methylprednisolone Sodium Succinate (Solu-MEDROL) 40 mg DAILY IVP 07/05/19 09:00 07/29/19 13:59 07/11/19 08:38 Metoclopramide HCl (Reglan) 10 mg Q6H PRN IVP Nausea & Vomiting 06/29/19 11:01 07/29/19 11:00 Norepinephrine Bitartrate 8 mg/ Dextrose 508 ml @ 0 mls/hr Q24H IV 06/29/19 12:30 07/29/19 12:29 06/30/19 11:42 Ondansetron HCl (Zofran) 4 mg Q6H PRN IVP Nausea & Vomiting 06/29/19 11:01 07/29/19 11:00 Thiamine HCl 100 mg/Dextrose 56 ml @ 112 mls/hr DAILY IVPB 07/03/19 11:00 08/02/19 10:59 07/11/19 08:38 Trimethoprim/ Sulfamethoxazole (Bactrim-DS) 20 ml EVERY 12 HOURS NG 07/11/19 21:00 07/18/19 20:59 Vasopressin 100 units/Sodium Chloride 100 ml @ 2.4 mls/hr Q24H IV 06/29/19 14:15 07/29/19 14:14 06/30/19 15:40 Last 24 Hour Vital Signs Date Time Temp Pulse Resp B/P (MAP) Pulse Ox O2 Delivery O2 Flow Rate FiO2 07/11/19 09:00 98.3 77 13 148/86 (106) 99 07/11/19 08:00 8.0 30 07/11/19 08:00 80 07/11/19 08:00 80 29 151/86 (107) 99 07/11/19 08:00 Mechanical Ventilator 07/11/19 07:21 77 20 98 T-Piece 8.0 30 07/11/19 07:20 98 T-Piece 8.0 30 07/11/19 07:00 73 27 139/89 (106) 97 07/11/19 06:48 98.5 07/11/19 06:00 91 27 167/86 (113) 100 07/11/19 05:00 78 28 144/79 (100) 100 07/11/19 04:00 75 07/11/19 04:00 Mechanical Ventilator 07/11/19 04:00 8.0 30 07/11/19 04:00 98.5 75 20 154/109 (124) 100 07/11/19 03:00 75 19 151/91 (111) 100 07/11/19 02:00 76 22 141/84 (103) 100 07/11/19 01:05 100 T-Piece 8.0 30 07/11/19 01:00 87 22 161/90 (113) 100 07/11/19 00:00 8.0 30 07/11/19 00:00 Mechanical Ventilator 07/11/19 00:00 98.2 85 25 141/83 (102) 100 07/11/19 00:00 85 07/10/19 23:00 84 29 163/93 (116) 100 07/10/19 22:00 80 25 128/78 (95) 100 07/10/19 21:00 83 16 156/139 (145) 100 07/10/19 20:00 98.0 83 10 148/83 (104) 100 07/10/19 20:00 8.0 30 07/10/19 20:00 Mechanical Ventilator 07/10/19 20:00 83 07/10/19 19:09 74 22 100 T-Piece 8.0 30 07/10/19 19:09 100 T-Piece 8.0 30 07/10/19 19:00 75 34 146/82 (103) 100 07/10/19 18:00 82 20 161/101 (121) 100 07/10/19 17:00 85 27 148/90 (109) 100 07/10/19 16:00 Mechanical Ventilator 07/10/19 16:00 70 07/10/19 16:00 99.0 78 26 124/73 (90) 99 07/10/19 16:00 8.0 30 07/10/19 15:54 100 T-Piece 8.0 30 07/10/19 15:53 78 24 100 T-Piece 8.0 30 07/10/19 15:11 84 18 100 T-Piece 8.0 30 07/10/19 15:00 76 10 129/81 (97) 100 07/10/19 14:08 99.1 07/10/19 14:00 72 21 121/81 (94) 100 07/10/19 13:00 73 30 124/74 (91) 100 07/10/19 12:41 71 27 100 T-Piece 8.0 30 07/10/19 12:00 71 07/10/19 12:00 Mechanical Ventilator 07/10/19 12:00 99.1 87 21 136/79 (98) 94 07/10/19 11:10 82 20 100 T-Piece 8.0 30 07/10/19 11:00 81 3 133/82 (99) 100 07/10/19 10:00 80 11 126/81 (96) 100 07/10/19 09:00 76 31 136/83 (100) 100 07/10/19 08:55 100 07/10/19 08:55 78 24 T-Piece 8.0 30 07/10/19 08:55 8.0 30 07/10/19 08:00 73 07/10/19 08:00 Mechanical Ventilator 07/10/19 08:00 30 07/10/19 08:00 73 18 110/68 (82) 100 07/10/19 07:00 98.7 72 18 125/86 (99) 100 07/10/19 06:38 74 18 30 07/10/19 06:00 73 18 116/73 (87) 100 07/10/19 05:00 99.1 106 27 138/95 (109) 100 07/10/19 04:50 80 21 30 07/10/19 04:00 81 20 146/73 (97) 100 07/10/19 04:00 81 07/10/19 04:00 30 07/10/19 04:00 Mechanical Ventilator 07/10/19 03:01 88 22 30 07/10/19 03:00 81 18 121/79 (93) 100 07/10/19 02:00 98.4 88 21 127/80 (96) 100 07/10/19 02:00 98.4 07/10/19 01:00 101 27 140/97 (111) 100 07/10/19 00:59 86 21 30 07/10/19 00:00 95 07/10/19 00:00 100.2 95 18 111/73 (86) 100 07/10/19 00:00 30 07/10/19 00:00 Mechanical Ventilator 07/09/19 23:00 100 29 119/79 (92) 100 07/09/19 22:51 95 26 30 07/09/19 22:00 93 24 113/69 (84) 100 07/09/19 21:00 98.1 98 26 81/17 (38) 100 07/09/19 20:55 98 24 30 07/09/19 20:00 Mechanical Ventilator 07/09/19 20:00 105 26 159/99 (119) 100 07/09/19 20:00 101 07/09/19 20:00 30 07/09/19 19:00 98 21 153/101 (118) 97 07/09/19 18:40 94 18 98 Mechanical Ventilator 30 94 18 30 07/09/19 18:00 98.1 100 21 159/103 (121) 97 07/09/19 17:26 101 19 30 07/09/19 17:00 109 25 157/97 (117) 97 07/09/19 16:00 Mechanical Ventilator 07/09/19 16:00 30 07/09/19 16:00 110 07/09/19 16:00 110 26 145/122 (130) 94 07/09/19 15:00 120 33 145/122 (130) 95 07/09/19 14:52 104 29 97 Trach Collar 8.0 30 83 18 30 07/09/19 14:00 135 28 141/114 (123) 07/09/19 13:00 94 32 123/81 (95) 99 07/09/19 12:48 83 18 97 Trach Collar 8.0 30 83 18 30 07/09/19 12:00 98.2 87 28 115/71 (86) 95 07/09/19 12:00 100 07/09/19 12:00 30 07/09/19 12:00 Mechanical Ventilator 07/09/19 11:30 94 25 109/66 (80) 97 07/09/19 11:26 128/82 07/09/19 11:00 79 27 128/82 (97) 94 07/09/19 10:30 80 25 125/81 (96) 95 Intake and Output 07/10/19 07/11/19 19:00 07:00 Intake Total 992 ml 475.0 ml Output Total 780 ml 1140 ml Balance 212 ml -665.0 ml Intake IV Total 332 ml 275.0 ml Tube Feeding 600 ml 200 ml Other 60 ml Output Urine Total 780 ml 1140 ml # Bowel Movements 2 Labs Test 07/09/19 03:00 07/09/19 12:14 07/09/19 15:43 07/10/19 04:25 White Blood Count 12.1 K/UL (4.8-10.8) 12.6 K/UL (4.8-10.8) Red Blood Count 2.56 M/UL (4.20-5.40) 2.56 M/UL (4.20-5.40) Hemoglobin 8.1 G/DL (12.0-16.0) 7.9 G/DL (12.0-16.0) Hematocrit 24.6 % (37.0-47.0) 24.4 % (37.0-47.0) Mean Corpuscular Volume 96 FL (80-99) 96 FL (80-99) Mean Corpuscular Hemoglobin 31.4 PG (27.0-31.0) 30.9 PG (27.0-31.0) Mean Corpuscular Hemoglobin Concent 32.8 G/DL (32.0-36.0) 32.4 G/DL (32.0-36.0) Red Cell Distribution Width 15.0 % (11.6-14.8) 14.8 % (11.6-14.8) Platelet Count 219 K/UL (150-450) 224 K/UL (150-450) Mean Platelet Volume 7.7 FL (6.5-10.1) 7.1 FL (6.5-10.1) Neutrophils (%) (Auto) 81.6 % (45.0-75.0) % (45.0-75.0) Lymphocytes (%) (Auto) 8.1 % (20.0-45.0) % (20.0-45.0) Monocytes (%) (Auto) 8.4 % (1.0-10.0) % (1.0-10.0) Eosinophils (%) (Auto) 0.9 % (0.0-3.0) % (0.0-3.0) Basophils (%) (Auto) 1.0 % (0.0-2.0) % (0.0-2.0) Sodium Level 143 MMOL/L (136-145) 146 MMOL/L (136-145) Potassium Level 4.6 MMOL/L (3.5-5.1) 4.2 MMOL/L (3.5-5.1) Chloride Level 114 MMOL/L (98-107) 114 MMOL/L (98-107) Carbon Dioxide Level 19 MMOL/L (21-32) 23 MMOL/L (21-32) Anion Gap 10 mmol/L (5-15) 9 mmol/L (5-15) Blood Urea Nitrogen 18 mg/dL (7-18) 17 mg/dL (7-18) Creatinine 1.4 MG/DL (0.55-1.30) 1.4 MG/DL (0.55-1.30) Estimat Glomerular Filtration Rate 46.5 mL/min (>60) 46.5 mL/min (>60) Glucose Level 120 MG/DL (74-106) 117 MG/DL (74-106) Calcium Level 8.0 MG/DL (8.5-10.1) 8.3 MG/DL (8.5-10.1) Total Bilirubin 0.3 MG/DL (0.2-1.0) Aspartate Amino Transf (AST/SGOT) 15 U/L (15-37) Alanine Aminotransferase (ALT/SGPT) 57 U/L (12-78) Alkaline Phosphatase 54 U/L (46-116) Total Protein 5.2 G/DL (6.4-8.2) Albumin 1.9 G/DL (3.4-5.0) Globulin 3.3 g/dL Albumin/Globulin Ratio 0.6 (1.0-2.7) Lipase 389 U/L (73-393) Arterial Blood pH 7.337 (7.350-7.450) Arterial Blood Partial Pressure CO2 32.4 mmHg (35.0-45.0) Arterial Blood Partial Pressure O2 87.7 mmHg (75.0-100.0) Arterial Blood HCO3 17.0 mmol/L (22.0-26.0) Arterial Blood Oxygen Saturation 96.1 % (95-100) Arterial Blood Base Excess -8.0 (-2-2) Maxim Test Positive Random Vancomycin Level 9.2 ug/mL Test 07/10/19 13:45 07/10/19 15:35 07/10/19 18:25 07/11/19 03:30 Prothrombin Time 10.6 SEC (9.30-11.50) Prothromb Time International Ratio 1.0 (0.9-1.1) Activated Partial Thromboplast Time 27 SEC (23-33) Arterial Blood pH 7.416 (7.350-7.450) Arterial Blood Partial Pressure CO2 35.1 mmHg (35.0-45.0) Arterial Blood Partial Pressure O2 89.8 mmHg (75.0-100.0) Arterial Blood HCO3 22.1 mmol/L (22.0-26.0) Arterial Blood Oxygen Saturation 96.2 % (95-100) Arterial Blood Base Excess -2.1 (-2-2) Maxim Test Positive Random Vancomycin Level 13.1 ug/mL White Blood Count 17.1 K/UL (4.8-10.8) Red Blood Count 3.08 M/UL (4.20-5.40) Hemoglobin 9.6 G/DL (12.0-16.0) Hematocrit 29.1 % (37.0-47.0) Mean Corpuscular Volume 94 FL (80-99) Mean Corpuscular Hemoglobin 31.1 PG (27.0-31.0) Mean Corpuscular Hemoglobin Concent 32.9 G/DL (32.0-36.0) Red Cell Distribution Width 14.8 % (11.6-14.8) Platelet Count 241 K/UL (150-450) Mean Platelet Volume 7.1 FL (6.5-10.1) Neutrophils (%) (Auto) % (45.0-75.0) Lymphocytes (%) (Auto) % (20.0-45.0) Monocytes (%) (Auto) % (1.0-10.0) Eosinophils (%) (Auto) % (0.0-3.0) Basophils (%) (Auto) % (0.0-2.0) Differential Total Cells Counted 100 Neutrophils % (Manual) 86 % (45-75) Lymphocytes % (Manual) 4 % (20-45) Monocytes % (Manual) 8 % (1-10) Eosinophils % (Manual) 2 % (0-3) Basophils % (Manual) 0 % (0-2) Band Neutrophils 0 % (0-8) Platelet Estimate Adequate Platelet Morphology Normal Anisocytosis 1+ Sodium Level 143 MMOL/L (136-145) Potassium Level 4.1 MMOL/L (3.5-5.1) Chloride Level 109 MMOL/L (98-107) Carbon Dioxide Level 26 MMOL/L (21-32) Anion Gap 8 mmol/L (5-15) Blood Urea Nitrogen 18 mg/dL (7-18) Creatinine 1.3 MG/DL (0.55-1.30) Estimat Glomerular Filtration Rate 50.7 mL/min (>60) Glucose Level 76 MG/DL (74-106) Calcium Level 8.7 MG/DL (8.5-10.1) Height (Feet): 5 Height (Inches): 3.00 Weight (Pounds): 175 Objective Physical Exam: Vitals: reviewed General Appearance: NAD HEENT: normocephalic, atraumatic ++ trach VENT Neck: non-tender, normal alignment Respiratory/Chest: normal breath sounds bilaterally Cardiovascular/Chest: normal peripheral pulses, normal rate Abdomen: normal bowel sounds, soft, nontender Extremities: normal range of motion Jordan Nguyen MD Jul 11, 2019 10:26
[2019-07-11] MEDS: fentaNYL Citrate 2,500 MCG in NS 200 ML IV SCH (11:28)
[2019-07-11] MEDS ORDERED: Lidocaine 1% MPF 10mg/ml 5ml ONE (11:30)
[2019-07-11] MEDS ORDERED: Propofol 200mg/20ml IV ONE (11:30)
--- NOTE | 2019-07-11 11:34 | General Progress Note ---
Assessment/Plan Status: stable, progressing Assessment/Plan: Assessment - Angioedema, s/p emergency trach - abnormal LFT, ? Rhabdo related - improving - borderline CBD dilation on U/S - abnormal Lipase, ? significance - dysphagia, did not pass swallow - now with NJT - Thrombocytopenia - improved - HIV (+) - Drug abuse Recommendations - Continue tube feeds - Scheduled for PEG TH am , patient agreeable - Monitor labs - will consider CT imaging of abd once out of ICU - Pepcid Subjective Allergies: Coded Allergies: No Known Allergies (Unverified , 06/29/19) Subjective awake d/w patient re PEG agreed to proceed with placement d/w pharmacy re last Vanco dose last night per Pharm D, levels still acceptable at this time for PEG to get Bactrim PO as well Objective Last 24 Hour Vital Signs Date Time Temp Pulse Resp B/P (MAP) Pulse Ox O2 Delivery O2 Flow Rate FiO2 07/11/19 11:00 75 27 160/109 (126) 100 07/11/19 10:00 78 16 149/89 (109) 100 07/11/19 09:00 98.3 77 13 148/86 (106) 99 07/11/19 08:00 8.0 30 07/11/19 08:00 80 07/11/19 08:00 80 29 151/86 (107) 99 07/11/19 08:00 Mechanical Ventilator 07/11/19 07:21 77 20 98 T-Piece 8.0 30 07/11/19 07:20 98 T-Piece 8.0 30 07/11/19 07:00 73 27 139/89 (106) 97 07/11/19 06:48 98.5 07/11/19 06:00 91 27 167/86 (113) 100 07/11/19 05:00 78 28 144/79 (100) 100 07/11/19 04:00 75 07/11/19 04:00 Mechanical Ventilator 07/11/19 04:00 8.0 30 07/11/19 04:00 98.5 75 20 154/109 (124) 100 07/11/19 03:00 75 19 151/91 (111) 100 07/11/19 02:00 76 22 141/84 (103) 100 07/11/19 01:05 100 T-Piece 8.0 30 07/11/19 01:00 87 22 161/90 (113) 100 07/11/19 00:00 8.0 30 07/11/19 00:00 Mechanical Ventilator 07/11/19 00:00 98.2 85 25 141/83 (102) 100 07/11/19 00:00 85 07/10/19 23:00 84 29 163/93 (116) 100 07/10/19 22:00 80 25 128/78 (95) 100 07/10/19 21:00 83 16 156/139 (145) 100 07/10/19 20:00 98.0 83 10 148/83 (104) 100 07/10/19 20:00 8.0 30 07/10/19 20:00 Mechanical Ventilator 07/10/19 20:00 83 07/10/19 19:09 74 22 100 T-Piece 8.0 30 07/10/19 19:09 100 T-Piece 8.0 30 07/10/19 19:00 75 34 146/82 (103) 100 07/10/19 18:00 82 20 161/101 (121) 100 07/10/19 17:00 85 27 148/90 (109) 100 07/10/19 16:00 Mechanical Ventilator 07/10/19 16:00 70 07/10/19 16:00 99.0 78 26 124/73 (90) 99 07/10/19 16:00 8.0 30 07/10/19 15:54 100 T-Piece 8.0 30 07/10/19 15:53 78 24 100 T-Piece 8.0 30 07/10/19 15:11 84 18 100 T-Piece 8.0 30 07/10/19 15:00 76 10 129/81 (97) 100 07/10/19 14:08 99.1 07/10/19 14:00 72 21 121/81 (94) 100 07/10/19 13:00 73 30 124/74 (91) 100 07/10/19 12:41 71 27 100 T-Piece 8.0 30 07/10/19 12:00 71 07/10/19 12:00 Mechanical Ventilator 07/10/19 12:00 99.1 87 21 136/79 (98) 94 Intake and Output 07/10/19 07/11/19 19:00 07:00 Intake Total 992 ml 475.0 ml Output Total 780 ml 1140 ml Balance 212 ml -665.0 ml Intake IV Total 332 ml 275.0 ml Tube Feeding 600 ml 200 ml Other 60 ml Output Urine Total 780 ml 1140 ml # Bowel Movements 2 Laboratory Tests 07/10/19 13:45: Prothrombin Time 10.6, Prothromb Time International Ratio 1.0, Activated Partial Thromboplast Time 27 07/10/19 15:35: Arterial Blood pH 7.416, Arterial Blood Partial Pressure CO2 35.1, Arterial Blood Partial Pressure O2 89.8, Arterial Blood HCO3 22.1, Arterial Blood Oxygen Saturation 96.2, Arterial Blood Base Excess -2.1L, Maxim Test Positive 07/10/19 18:25: Random Vancomycin Level 13.1 07/11/19 03:30: White Blood Count 17.1H, Red Blood Count 3.08L, Hemoglobin 9.6L, Hematocrit 29.1L, Mean Corpuscular Volume 94, Mean Corpuscular Hemoglobin 31.1H, Mean Corpuscular Hemoglobin Concent 32.9, Red Cell Distribution Width 14.8, Platelet Count 241, Mean Platelet Volume 7.1, Neutrophils (%) (Auto) , Lymphocytes (%) ( Auto) , Monocytes (%) (Auto) , Eosinophils (%) (Auto) , Basophils (%) (Auto) , Differential Total Cells Counted 100, Neutrophils % (Manual) 86H, Lymphocytes % (Manual) 4L, Monocytes % (Manual) 8, Eosinophils % (Manual) 2, Basophils % ( Manual) 0, Band Neutrophils 0, Platelet Estimate Adequate, Platelet Morphology Normal, Anisocytosis 1+, Sodium Level 143, Potassium Level 4.1, Chloride Level 109H, Carbon Dioxide Level 26, Anion Gap 8, Blood Urea Nitrogen 18, Creatinine 1.3, Estimat Glomerular Filtration Rate 50.7, Glucose Level 76, Calcium Level 8.7 Height (Feet): 5 Height (Inches): 3.00 Weight (Pounds): 175 Objective WDWN AA woman NCAT (+) NGT (+) trach Coarse BS RR abd soft no edema Elisabeth Sommers MD Jul 11, 2019 11:34
--- NOTE | 2019-07-11 11:35 | Pre-Procedure Note/Attestation ---
Pre-Procedure Note/Attestation Complete Prior to Procedure Planned Procedure: not applicable Procedure Narrative: EGD, PEG Indications for Procedure Pre-Operative Diagnosis: Dysphagia Attestation I attest that I discussed the nature of the procedure; its benefits; risks and complications; and alternatives (and the risks and benefits of such alternatives ), prior to the procedure, with the patient (or the patient's legal u.s. representative). I attest that, if there was a reasonable possibility of needing a blood transfusion, the patient (or the patient's legal u.s. representative) was given the [facility] standardized written summary, pursuant to the [place] Blood Safety Act ([place] Health and Safety Code # 1645, as amended). I attest that I re-evaluated the patient just prior to the surgery and that there has been no change in the patient's H&P, except as documented below: Elisabeth Sommers MD Jul 11, 2019 11:35
[2019-07-11] MEDS ORDERED: Levofloxacin 750mg tab NG SCH (12:00)
[2019-07-11] MEDS ORDERED: NS 275ml ONE (12:21)
[2019-07-11] MEDS ORDERED: Tubing Blood Filter IV ONE (12:21)
[2019-07-11] MEDS ORDERED: Tubing IV Secondary IV ONE (12:21)
--- NOTE | 2019-07-11 12:28 | Nephrology Progress Note ---
Assessment/Plan Problem List: (1) Cocaine abuse (2) Angioedema (3) Hypertension (4) Tracheostomy hemorrhage (5) JUANITA (acute kidney injury) Plan CBC, BMP today and tomorrow Abx per ID Contact isolation. Continue to monitor off ventilator with suction and cool air humidifier w/ RT suction Will continue to monitor renal function and respond accordingly . Subjective Subjective The patient has a tracheostomy and is limited in conversation. No new events per ICU Team. Objective Objective Last 24 Hour Vital Signs Date Time Temp Pulse Resp B/P (MAP) Pulse Ox O2 Delivery O2 Flow Rate FiO2 07/11/19 12:07 81 23 30 07/11/19 12:00 98.2 85 157/95 (115) 07/11/19 12:00 Mechanical Ventilator 07/11/19 12:00 8.0 30 07/11/19 11:00 75 27 160/109 (126) 100 07/11/19 10:00 78 16 149/89 (109) 100 07/11/19 09:00 98.3 77 13 148/86 (106) 99 07/11/19 08:00 8.0 30 07/11/19 08:00 80 07/11/19 08:00 80 29 151/86 (107) 99 07/11/19 08:00 Mechanical Ventilator 07/11/19 07:21 77 20 98 T-Piece 8.0 30 07/11/19 07:20 98 T-Piece 8.0 30 07/11/19 07:00 73 27 139/89 (106) 97 07/11/19 06:48 98.5 07/11/19 06:00 91 27 167/86 (113) 100 07/11/19 05:00 78 28 144/79 (100) 100 07/11/19 04:00 75 07/11/19 04:00 Mechanical Ventilator 07/11/19 04:00 8.0 30 07/11/19 04:00 98.5 75 20 154/109 (124) 100 07/11/19 03:00 75 19 151/91 (111) 100 07/11/19 02:00 76 22 141/84 (103) 100 07/11/19 01:05 100 T-Piece 8.0 30 07/11/19 01:00 87 22 161/90 (113) 100 07/11/19 00:00 8.0 30 07/11/19 00:00 Mechanical Ventilator 07/11/19 00:00 98.2 85 25 141/83 (102) 100 07/11/19 00:00 85 07/10/19 23:00 84 29 163/93 (116) 100 07/10/19 22:00 80 25 128/78 (95) 100 07/10/19 21:00 83 16 156/139 (145) 100 07/10/19 20:00 98.0 83 10 148/83 (104) 100 07/10/19 20:00 8.0 30 07/10/19 20:00 Mechanical Ventilator 07/10/19 20:00 83 07/10/19 19:09 74 22 100 T-Piece 8.0 30 07/10/19 19:09 100 T-Piece 8.0 30 07/10/19 19:00 75 34 146/82 (103) 100 07/10/19 18:00 82 20 161/101 (121) 100 07/10/19 17:00 85 27 148/90 (109) 100 07/10/19 16:00 Mechanical Ventilator 07/10/19 16:00 70 07/10/19 16:00 99.0 78 26 124/73 (90) 99 07/10/19 16:00 8.0 30 07/10/19 15:54 100 T-Piece 8.0 30 07/10/19 15:53 78 24 100 T-Piece 8.0 30 07/10/19 15:11 84 18 100 T-Piece 8.0 30 07/10/19 15:00 76 10 129/81 (97) 100 07/10/19 14:08 99.1 07/10/19 14:00 72 21 121/81 (94) 100 07/10/19 13:00 73 30 124/74 (91) 100 07/10/19 12:41 71 27 100 T-Piece 8.0 30 Intake and Output 07/10/19 07/11/19 19:00 07:00 Intake Total 992 ml 475.0 ml Output Total 780 ml 1140 ml Balance 212 ml -665.0 ml Intake IV Total 332 ml 275.0 ml Tube Feeding 600 ml 200 ml Other 60 ml Output Urine Total 780 ml 1140 ml # Bowel Movements 2 Laboratory Tests 07/10/19 13:45: Prothrombin Time 10.6, Prothromb Time International Ratio 1.0, Activated Partial Thromboplast Time 27 07/10/19 15:35: Arterial Blood pH 7.416, Arterial Blood Partial Pressure CO2 35.1, Arterial Blood Partial Pressure O2 89.8, Arterial Blood HCO3 22.1, Arterial Blood Oxygen Saturation 96.2, Arterial Blood Base Excess -2.1L, Maxim Test Positive 07/10/19 18:25: Random Vancomycin Level 13.1 07/11/19 03:30: White Blood Count 17.1H, Red Blood Count 3.08L, Hemoglobin 9.6L, Hematocrit 29.1L, Mean Corpuscular Volume 94, Mean Corpuscular Hemoglobin 31.1H, Mean Corpuscular Hemoglobin Concent 32.9, Red Cell Distribution Width 14.8, Platelet Count 241, Mean Platelet Volume 7.1, Neutrophils (%) (Auto) , Lymphocytes (%) ( Auto) , Monocytes (%) (Auto) , Eosinophils (%) (Auto) , Basophils (%) (Auto) , Differential Total Cells Counted 100, Neutrophils % (Manual) 86H, Lymphocytes % (Manual) 4L, Monocytes % (Manual) 8, Eosinophils % (Manual) 2, Basophils % ( Manual) 0, Band Neutrophils 0, Platelet Estimate Adequate, Platelet Morphology Normal, Anisocytosis 1+, Sodium Level 143, Potassium Level 4.1, Chloride Level 109H, Carbon Dioxide Level 26, Anion Gap 8, Blood Urea Nitrogen 18, Creatinine 1.3, Estimat Glomerular Filtration Rate 50.7, Glucose Level 76, Calcium Level 8.7 Height (Feet): 5 Height (Inches): 3.00 Weight (Pounds): 175 General Appearance: WD/WN, alert EENT: PERRL/EOMI, pharynx normal Cardiovascular: normal peripheral pulses, normal rate, regular rhythm Respiratory/Chest: lungs clear, normal breath sounds Abdomen: normal bowel sounds, non tender, soft Extremities: non-tender, normal inspection, normal capillary refill Neurologic: radiology teacher II-XII grossly normal, alert, oriented x 3, responsive Objective Ms. Burnett appears calm at this time. She is observed clearing airway with suction help from RT. She is awake and alert. The vent has been removed, and cool aerosol continues. Presently, she is MRSA +, so contact isolation started. She continues to be producing clear yellow urine noted in patel bag/tubing. Neuro: A&Ox4, IMPORT/EXPORT FREIGHT FORWARDER intact CVS: RRR Lungs:clear, trached (RT suctioning an d patient making attempt to clear as well ) HEENT: head atraumatic, PERRLA, nose/mouth pink-moist mucosa, tracheostomy clean /no drainage noted to gauze Abd: no ttp, BS +, peg placed GI/: patel, no n/v/d/c per nursing notes Extremities: no edema, pop/pedal 2+ (sequentials in place and on) Skin: normal for ethnicity, no decub ulcers Sharee Alvarez N.P. Jul 11, 2019 12:28
--- NOTE | 2019-07-11 12:38 | Surgery Progress Note ---
Surgery Progress Note Subjective Additional Comments doing well less drainage from trach site today plan for peg today Objective Last 24 Hour Vital Signs Date Time Temp Pulse Resp B/P (MAP) Pulse Ox O2 Delivery O2 Flow Rate FiO2 07/11/19 12:07 81 23 30 07/11/19 12:00 98.2 85 157/95 (115) 07/11/19 12:00 Mechanical Ventilator 07/11/19 12:00 8.0 30 07/11/19 11:00 75 27 160/109 (126) 100 07/11/19 10:00 78 16 149/89 (109) 100 07/11/19 09:00 98.3 77 13 148/86 (106) 99 07/11/19 08:00 8.0 30 07/11/19 08:00 80 07/11/19 08:00 80 29 151/86 (107) 99 07/11/19 08:00 Mechanical Ventilator 07/11/19 07:21 77 20 98 T-Piece 8.0 30 07/11/19 07:20 98 T-Piece 8.0 30 07/11/19 07:00 73 27 139/89 (106) 97 07/11/19 06:48 98.5 07/11/19 06:00 91 27 167/86 (113) 100 07/11/19 05:00 78 28 144/79 (100) 100 07/11/19 04:00 75 07/11/19 04:00 Mechanical Ventilator 07/11/19 04:00 8.0 30 07/11/19 04:00 98.5 75 20 154/109 (124) 100 07/11/19 03:00 75 19 151/91 (111) 100 07/11/19 02:00 76 22 141/84 (103) 100 07/11/19 01:05 100 T-Piece 8.0 30 07/11/19 01:00 87 22 161/90 (113) 100 07/11/19 00:00 8.0 30 07/11/19 00:00 Mechanical Ventilator 07/11/19 00:00 98.2 85 25 141/83 (102) 100 07/11/19 00:00 85 07/10/19 23:00 84 29 163/93 (116) 100 07/10/19 22:00 80 25 128/78 (95) 100 07/10/19 21:00 83 16 156/139 (145) 100 07/10/19 20:00 98.0 83 10 148/83 (104) 100 07/10/19 20:00 8.0 30 07/10/19 20:00 Mechanical Ventilator 07/10/19 20:00 83 07/10/19 19:09 74 22 100 T-Piece 8.0 30 07/10/19 19:09 100 T-Piece 8.0 30 07/10/19 19:00 75 34 146/82 (103) 100 07/10/19 18:00 82 20 161/101 (121) 100 07/10/19 17:00 85 27 148/90 (109) 100 07/10/19 16:00 Mechanical Ventilator 07/10/19 16:00 70 07/10/19 16:00 99.0 78 26 124/73 (90) 99 07/10/19 16:00 8.0 30 07/10/19 15:54 100 T-Piece 8.0 30 07/10/19 15:53 78 24 100 T-Piece 8.0 30 07/10/19 15:11 84 18 100 T-Piece 8.0 30 07/10/19 15:00 76 10 129/81 (97) 100 07/10/19 14:08 99.1 07/10/19 14:00 72 21 121/81 (94) 100 07/10/19 13:00 73 30 124/74 (91) 100 07/10/19 12:41 71 27 100 T-Piece 8.0 30 I&O Intake and Output 07/10/19 07/11/19 19:00 07:00 Intake Total 992 ml 475.0 ml Output Total 780 ml 1140 ml Balance 212 ml -665.0 ml Intake IV Total 332 ml 275.0 ml Tube Feeding 600 ml 200 ml Other 60 ml Output Urine Total 780 ml 1140 ml # Bowel Movements 2 Dressing: saturated Wound: clean Drains: none Cardiovascular: RSR Respiratory: clear Abdomen: soft, flat, non-tender, present bowel sounds, non-distended Extremities: no edema, no tenderness, no cyanosis Laboratory Tests Test 07/10/19 13:45 07/10/19 15:35 07/10/19 18:25 07/11/19 03:30 Prothrombin Time 10.6 SEC (9.30-11.50) Prothromb Time International Ratio 1.0 (0.9-1.1) Activated Partial Thromboplast Time 27 SEC (23-33) Arterial Blood pH 7.416 (7.350-7.450) Arterial Blood Partial Pressure CO2 35.1 mmHg (35.0-45.0) Arterial Blood Partial Pressure O2 89.8 mmHg (75.0-100.0) Arterial Blood HCO3 22.1 mmol/L (22.0-26.0) Arterial Blood Oxygen Saturation 96.2 % (95-100) Arterial Blood Base Excess -2.1 (-2-2) L Maxim Test Positive Random Vancomycin Level 13.1 ug/mL White Blood Count 17.1 K/UL (4.8-10.8) H Red Blood Count 3.08 M/UL (4.20-5.40) L Hemoglobin 9.6 G/DL (12.0-16.0) L Hematocrit 29.1 % (37.0-47.0) L Mean Corpuscular Volume 94 FL (80-99) Mean Corpuscular Hemoglobin 31.1 PG (27.0-31.0) H Mean Corpuscular Hemoglobin Concent 32.9 G/DL (32.0-36.0) Red Cell Distribution Width 14.8 % (11.6-14.8) Platelet Count 241 K/UL (150-450) Mean Platelet Volume 7.1 FL (6.5-10.1) Neutrophils (%) (Auto) % (45.0-75.0) Lymphocytes (%) (Auto) % (20.0-45.0) Monocytes (%) (Auto) % (1.0-10.0) Eosinophils (%) (Auto) % (0.0-3.0) Basophils (%) (Auto) % (0.0-2.0) Differential Total Cells Counted 100 Neutrophils % (Manual) 86 % (45-75) H Lymphocytes % (Manual) 4 % (20-45) L Monocytes % (Manual) 8 % (1-10) Eosinophils % (Manual) 2 % (0-3) Basophils % (Manual) 0 % (0-2) Band Neutrophils 0 % (0-8) Platelet Estimate Adequate Platelet Morphology Normal Anisocytosis 1+ Sodium Level 143 MMOL/L (136-145) Potassium Level 4.1 MMOL/L (3.5-5.1) Chloride Level 109 MMOL/L (98-107) H Carbon Dioxide Level 26 MMOL/L (21-32) Anion Gap 8 mmol/L (5-15) Blood Urea Nitrogen 18 mg/dL (7-18) Creatinine 1.3 MG/DL (0.55-1.30) Estimat Glomerular Filtration Rate 50.7 mL/min (>60) Glucose Level 76 MG/DL (74-106) Calcium Level 8.7 MG/DL (8.5-10.1) Plan Problems: (1) Angioedema Assessment & Plan: airway trach as per reports trach stable currently sutures in place dressings changed HD line in place and noted off vent will follow with recs thank you (2) Tracheostomy hemorrhage Assessment & Plan: stable dressings dry will monitor doing well may need revision given mucus leak (3) Tracheostomy complication Assessment & Plan: if continues to have leak of mucus with cough and possible infection of trach site may need revision George Cavazos Jul 11, 2019 12:38
[2019-07-11] MEDS: Bactrim Susp 20ml NG SCH ×2 (12:44→20:43)
[2019-07-11] MEDS: D5 1/2NS 1,000 ML IV SCH ×2 (12:45→22:43)
[2019-07-11] MEDS: Acetaminophen 650mg/20.3ml NG PRN ×2 (13:02→17:12)
[2019-07-11] MEDS: Vasopressin 100 UNITS in NS 95 ML IV SCH (13:35)
[2019-07-11] MEDS: EPINEPHrine 1mg/1ml Amp 1 MG in D5W 249 ML IV SCH (15:12)
[2019-07-11] MEDS ORDERED: Zolpidem 5mg tab GT PRN (15:45)
[2019-07-11] MEDS ORDERED: Zolpidem 5mg tab NG PRN (15:45)
--- NOTE | 2019-07-11 16:06 | Cardiac Electrophysiology PN ---
Assessment/Plan Assessment/Plan 1. Angioedema, s/p emergency tracheostomy on the Vent Off the vent since this am. 2. S/P Hypotension, 3. Hypertension. On Clonidine patch weekly 4. Cocaine abuse 5. ARF. Last HD and no further. 6. Anemia 7. HIV positive, newly diagnosed 8. Dysphagia, S/P PEG DW RN Subjective Subjective Off the vent on T tube and tracheostomy in ICU. Off Pressors. In SR . Just had PEG Objective Last 24 Hour Vital Signs Date Time Temp Pulse Resp B/P (MAP) Pulse Ox O2 Delivery O2 Flow Rate FiO2 07/11/19 15:34 151/93 07/11/19 15:00 88 21 151/93 (112) 100 07/11/19 14:00 72 29 143/92 (109) 100 07/11/19 13:14 100 T-Piece 8.0 30 07/11/19 13:00 76 16 137/87 (104) 99 07/11/19 12:07 81 23 30 07/11/19 12:00 98.2 85 17 157/95 (115) 100 07/11/19 12:00 Mechanical Ventilator 07/11/19 12:00 8.0 30 07/11/19 12:00 76 07/11/19 11:00 75 27 160/109 (126) 100 07/11/19 10:00 78 16 149/89 (109) 100 07/11/19 09:00 98.3 77 13 148/86 (106) 99 07/11/19 08:00 8.0 30 07/11/19 08:00 80 07/11/19 08:00 80 29 151/86 (107) 99 07/11/19 08:00 Mechanical Ventilator 07/11/19 07:21 77 20 98 T-Piece 8.0 30 07/11/19 07:20 98 T-Piece 8.0 30 07/11/19 07:00 73 27 139/89 (106) 97 07/11/19 06:48 98.5 07/11/19 06:00 91 27 167/86 (113) 100 07/11/19 05:00 78 28 144/79 (100) 100 07/11/19 04:00 75 07/11/19 04:00 Mechanical Ventilator 07/11/19 04:00 8.0 30 07/11/19 04:00 98.5 75 20 154/109 (124) 100 07/11/19 03:00 75 19 151/91 (111) 100 07/11/19 02:00 76 22 141/84 (103) 100 07/11/19 01:05 100 T-Piece 8.0 30 07/11/19 01:00 87 22 161/90 (113) 100 07/11/19 00:00 8.0 30 07/11/19 00:00 Mechanical Ventilator 07/11/19 00:00 98.2 85 25 141/83 (102) 100 07/11/19 00:00 85 07/10/19 23:00 84 29 163/93 (116) 100 07/10/19 22:00 80 25 128/78 (95) 100 07/10/19 21:00 83 16 156/139 (145) 100 07/10/19 20:00 98.0 83 10 148/83 (104) 100 07/10/19 20:00 8.0 30 07/10/19 20:00 Mechanical Ventilator 07/10/19 20:00 83 07/10/19 19:09 74 22 100 T-Piece 8.0 30 07/10/19 19:09 100 T-Piece 8.0 30 07/10/19 19:00 75 34 146/82 (103) 100 07/10/19 18:00 82 20 161/101 (121) 100 07/10/19 17:00 85 27 148/90 (109) 100 Intake and Output 07/10/19 07/11/19 19:00 07:00 Intake Total 992 ml 475.0 ml Output Total 780 ml 1140 ml Balance 212 ml -665.0 ml IV Total 332 ml 275.0 ml Tube Feeding 600 ml 200 ml Other 60 ml Output Urine Total 780 ml 1140 ml # Bowel Movements 2 Laboratory Tests Test 07/10/19 18:25 07/11/19 03:30 Random Vancomycin Level 13.1 ug/mL White Blood Count 17.1 K/UL (4.8-10.8) H Red Blood Count 3.08 M/UL (4.20-5.40) L Hemoglobin 9.6 G/DL (12.0-16.0) L Hematocrit 29.1 % (37.0-47.0) L Mean Corpuscular Volume 94 FL (80-99) Mean Corpuscular Hemoglobin 31.1 PG (27.0-31.0) H Mean Corpuscular Hemoglobin Concent 32.9 G/DL (32.0-36.0) Red Cell Distribution Width 14.8 % (11.6-14.8) Platelet Count 241 K/UL (150-450) Mean Platelet Volume 7.1 FL (6.5-10.1) Neutrophils (%) (Auto) % (45.0-75.0) Lymphocytes (%) (Auto) % (20.0-45.0) Monocytes (%) (Auto) % (1.0-10.0) Eosinophils (%) (Auto) % (0.0-3.0) Basophils (%) (Auto) % (0.0-2.0) Differential Total Cells Counted 100 Neutrophils % (Manual) 86 % (45-75) H Lymphocytes % (Manual) 4 % (20-45) L Monocytes % (Manual) 8 % (1-10) Eosinophils % (Manual) 2 % (0-3) Basophils % (Manual) 0 % (0-2) Band Neutrophils 0 % (0-8) Platelet Estimate Adequate Platelet Morphology Normal Anisocytosis 1+ Sodium Level 143 MMOL/L (136-145) Potassium Level 4.1 MMOL/L (3.5-5.1) Chloride Level 109 MMOL/L (98-107) H Carbon Dioxide Level 26 MMOL/L (21-32) Anion Gap 8 mmol/L (5-15) Blood Urea Nitrogen 18 mg/dL (7-18) Creatinine 1.3 MG/DL (0.55-1.30) Estimat Glomerular Filtration Rate 50.7 mL/min (>60) Glucose Level 76 MG/DL (74-106) Calcium Level 8.7 MG/DL (8.5-10.1) Objective HEENT: Tracheostomy in place LUNGS: Coarse rhonchi CVS: RRR ABDOMEN: Obese. PEG in place EXT: No edema. Right femoral triple lumen Catheter and Right arm PICC line in place Giles Rodarte MD Jul 11, 2019 16:06
--- NOTE | 2019-07-11 17:59 | Endoscopy Procedure Note ---
Endoscopy Procedure Note General Indication for Procedure: dysphagia Procedures Performed: EGD, PEG Operative Findings/Diagnosis: GT placed Specimen: none Pt Tolerated Procedure Well: Yes Estimated Blood Loss: none Anesthesia Anesthesiologist: see report Anesthesia: MAC Medications Medication Given: see anesthesia record Inserted Devices Implant(s) used?: No GI Core Measures 50 yrs or older w/o bx or poly: Not Applicable 10yrs. F/U recommended: Not Applicable Elisabeth Sommers MD Jul 11, 2019 17:59
--- NOTE | 2019-07-11 18:00 | Brief Operative Note ---
Immediate Post Operative Note Operative Note Chief Complaint: dysphagia Pre-op Diagnosis: Dysphagia Procedure: EGD, PEG Post-op Diagnosis: dysphagia Surgeon: alexsander Anesthesiologist: see report Specimen: none Complications: yes Fluids: given Implant(s) used?: No Elisabeth Sommers MD Jul 11, 2019 18:00
--- NOTE | 2019-07-11 20:45 | Procedure Note ---
DATE OF PROCEDURE: 07/11/2019 GASTROENTEROLOGY PROCEDURE REPORT PROCEDURE: Upper gastrointestinal endoscopy with gastrostomy tube placement. SURGEON: Elisabeth Sommers M.D. ANESTHESIA: Please see the separate anesthesiologist notes for details. PRE-ENDOSCOPIC DIAGNOSIS: Dysphagia. POST-ENDOSCOPIC DIAGNOSIS: Status post gastrostomy tube placement. DESCRIPTION OF PROCEDURE: The procedure, its risks, indications, alternatives, and possible complications including, but not limited to bleeding, infection, perforation, , and anesthesia complications were explained to the patient and informed consent was obtained. The patient was then sedated in the supine position and a diagnostic upper endoscope was introduced through the oropharynx and advanced to the duodenum. The endoscope was then gradually withdrawn and the mucosa examined carefully. Examination of the upper gastrointestinal mucosa did not reveal any abnormalities. The location for placement of gastrostomy tube was identified by the palpation and transillumination techniques. The outside skin was sterilely prepared, anesthetized, and incised and the trocar needle was used with a single pass to place the gastrostomy tube using the standard pull technique. Position was verified endoscopically. The markings were at the 3 centimeters from the outside. The patient was left to recovery in good condition. COMPLICATIONS: None. RECOMMENDATIONS: 1. Observe overnight. 2. Begin tube feedings tomorrow. Elisabeth Sommers M.D. DR: REZA JOB#: [id number] CC:
[2019-07-11] MEDS ORDERED: Bactrim Susp 20ml NG SCH (21:00)
[2019-07-12] VITALS (24 sets, daily range): BP systolic 108–154; BP diastolic 68–93
[2019-07-12] MEDS: Acetaminophen 650mg/20.3ml NG PRN (01:43)
--- NOTE | 2019-07-12 02:45 | Consultation ---
DATE OF CONSULTATION: 07/11/2019 HISTORY OF PRESENT ILLNESS: The patient is a 59-year-old female with a history of angioedema, history of hypertension, and opiate use, who has been recently diagnosed with HIV. The patient presented with swollen tongue in March and has undergone emergency tracheostomy per the EMS report. The patient started having severe bleeding about 2000 mL of blood came out. The patient received several units of blood. During the evaluation today, the patient was communicating via writing. The patient currently is very weak and is thrombocytopenic. She is able to answer the questions. The patient is sad, anxious, and worried about the cancer. The patient just found out that she is positive for HIV. she is not able to sleep at night. The patient is having mostly anxiety at night. She is having insomnia. No suicidal or homicidal ideation. PAST PSYCHIATRIC HISTORY: She has a history of anxiety. PAST MEDICAL HISTORY: As above. ALLERGIES: No known drug allergies. SUBSTANCE ABUSE HISTORY: Significant for cocaine. Her urine tox was positive for cocaine. MENTAL STATUS EXAMINATION: The patient is alert and oriented times self, place, and situation. She is smiling, cooperative, and pleasant. Mood is anxious. Affect is constricted. Congruent with mood. Thought process is linear and goal oriented. Thought content, no suicidal or homicidal ideation. ASSESSMENT: Jeanerette I Substance use disorder. Anxiety disorder. Jeanerette II Deferred. Jeanerette III As above. Jeanerette IV Low. Jeanerette V 50. PLAN: 1. The patient will be started on Remeron 7.5 at bedtime. 2. I provided the patient with reality orientation and supportive therapy. Discussed the case with the charge nurse. Caden Ferreira M.D. DR: MARY JOB#: [id number] CC: HIRAM
[2019-07-12 04:51] LABS: HEMATOCRIT 27.3 % (37.0-47.0); HEMOGLOBIN 8.8 G/DL (12.0-16.0); MEAN CORPUSCULAR VOLUME 94 FL (80-99); PLATELET COUNT 221 K/UL (150-450); RED CELL DISTRIBUTION WIDTH 14.1 % (11.6-14.8); WHITE BLOOD COUNT 12.1 K/UL (4.8-10.8)
[2019-07-12 05:20] LABS: ANION GAP 6 mmol/L (5-15); BLOOD UREA NITROGEN 13 mg/dL (7-18); CALCIUM 8.6 MG/DL (8.5-10.1); CARBON DIOXIDE 26 MMOL/L (21-32); CHLORIDE 109 MMOL/L (98-107); CREATININE 1.4 MG/DL (0.55-1.30); POTASSIUM 3.6 MMOL/L (3.5-5.1); SODIUM 141 MMOL/L (136-145)
[2019-07-12] MEDS: NovoLOG Insulin Flexpen SUBQ SCH ×4 (06:16→21:00)
--- NOTE | 2019-07-12 07:04 | General Progress Note ---
Assessment/Plan Problem List: (1) Tracheostomy hemorrhage ICD Codes: J95.01 - Hemorrhage from tracheostomy stoma SNOMED: 53364217 (2) Tracheostomy complication ICD Codes: J95.00 - Unspecified tracheostomy complication SNOMED: 46227094 (3) Cocaine abuse ICD Codes: F14.10 - Cocaine abuse, uncomplicated SNOMED: 11521148 (4) Angioedema ICD Codes: T78.3XXA - Angioneurotic edema, initial encounter SNOMED: 91287197 Qualifiers: Qualified Codes: T78.3XXA - Angioneurotic edema, initial encounter (5) Hypertension ICD Codes: I10 - Essential (primary) hypertension SNOMED: 35506831 Qualifiers: Qualified Codes: I10 - Essential (primary) hypertension Status: stable, progressing Assessment/Plan: trach care resp care monitor for bleeding, monitor labs trend wbc pain rx wean sedation anxiolytics as needed gt feeds barium swallow today Subjective Constitutional: Reports: no symptoms HEENT: Reports: no symptoms Cardiovascular: Reports: no symptoms Respiratory: Reports: cough Gastrointestinal/Abdominal: Reports: difficulty swallowing Genitourinary: Reports: no symptoms Neurologic/Psychiatric: Reports: anxiety, depressed Endocrine: Reports: no symptoms Hematologic/Lymphatic: Reports: anemia Allergies: Coded Allergies: No Known Allergies (Unverified , 06/29/19) All Systems: reviewed and negative except above Subjective no events. on t bar. s/p gt placement. no complaints. denies cp/sob. Objective Last 24 Hour Vital Signs Date Time Temp Pulse Resp B/P (MAP) Pulse Ox O2 Delivery O2 Flow Rate FiO2 07/12/19 06:00 67 29 132/81 (98) 100 07/12/19 05:00 61 25 129/81 (97) 100 07/12/19 04:00 97.5 66 20 124/74 (91) 100 07/12/19 04:00 Mechanical Ventilator 07/12/19 04:00 8.0 30 07/12/19 04:00 66 07/12/19 03:10 98.5 07/12/19 03:00 66 19 131/81 (98) 100 07/12/19 02:15 98.5 07/12/19 02:00 67 24 139/85 (103) 100 07/12/19 01:40 100 T-Piece 8.0 30 8/30/19 01:00 75 23 154/93 (113) 99 07/12/19 00:00 Mechanical Ventilator 07/12/19 00:00 98.5 74 19 142/92 (109) 100 07/11/19 23:00 75 24 148/88 (108) 99 07/11/19 22:00 71 16 128/76 (93) 100 07/11/19 21:00 67 22 143/89 (107) 100 07/11/19 20:00 8.0 30 07/11/19 20:00 98.5 69 28 137/90 (106) 100 07/11/19 20:00 Mechanical Ventilator 07/11/19 20:00 69 07/11/19 19:10 70 18 100 T-Piece 8.0 30 07/11/19 19:10 100 T-Piece 8.0 30 07/11/19 19:00 70 22 149/87 (107) 100 07/11/19 18:00 74 26 144/87 (106) 100 07/11/19 17:00 71 18 149/86 (107) 100 07/11/19 16:00 Mechanical Ventilator 07/11/19 16:00 98.3 75 21 144/87 (106) 100 07/11/19 16:00 8.0 30 07/11/19 16:00 72 07/11/19 15:34 151/93 07/11/19 15:00 88 21 151/93 (112) 100 07/11/19 14:00 72 29 143/92 (109) 100 07/11/19 13:14 100 T-Piece 8.0 30 07/11/19 13:00 76 16 137/87 (104) 99 07/11/19 12:07 81 23 30 07/11/19 12:00 98.2 85 17 157/95 (115) 100 07/11/19 12:00 Mechanical Ventilator 07/11/19 12:00 8.0 30 07/11/19 12:00 76 07/11/19 11:00 75 27 160/109 (126) 100 07/11/19 10:00 78 16 149/89 (109) 100 07/11/19 09:00 98.3 77 13 148/86 (106) 99 07/11/19 08:00 8.0 30 07/11/19 08:00 80 8/29/19 08:00 80 29 151/86 (107) 99 07/11/19 08:00 Mechanical Ventilator 07/11/19 07:21 77 20 98 T-Piece 8.0 30 07/11/19 07:20 98 T-Piece 8.0 30 Intake and Output 07/11/19 07/12/19 18:59 06:59 Intake Total 641 ml 1252 ml Output Total 1290 ml 990 ml Balance -649 ml 262 ml Intake Free Water 60 ml 50 ml IV Total 581 ml 1202 ml Output Urine Total 1290 ml 990 ml Laboratory Tests 07/12/19 04:33: White Blood Count 12.1H, Red Blood Count 2.90L, Hemoglobin 8.8L, Hematocrit 27.3L, Mean Corpuscular Volume 94, Mean Corpuscular Hemoglobin 30.4, Mean Corpuscular Hemoglobin Concent 32.4, Red Cell Distribution Width 14.1, Platelet Count 221, Mean Platelet Volume 7.2, Neutrophils (%) (Auto) , Lymphocytes (%) ( Auto) , Monocytes (%) (Auto) , Eosinophils (%) (Auto) , Basophils (%) (Auto) , Sodium Level 141, Potassium Level 3.6, Chloride Level 109H, Carbon Dioxide Level 26, Anion Gap 6, Blood Urea Nitrogen 13, Creatinine 1.4H, Estimat Glomerular Filtration Rate 46.5, Glucose Level 98, Calcium Level 8.6 Height (Feet): 5 Height (Inches): 3.00 Weight (Pounds): 173 Objective General Appearance: WD/WN, alert Neck: supple, other - trach midline Cardiovascular: normal rate, regular rhythm Respiratory/Chest: chest wall non-tender, lungs clear, normal breath sounds, no respiratory distress Abdomen: normal bowel sounds, non tender, soft, no organomegaly Edema: no edema noted Arm (L), no edema noted Arm (R), no edema noted Leg (L), no edema noted Leg (R), no edema noted Pedal (L), no edema noted Pedal (R), no edema noted Generalized Danis Markham MD Jul 12, 2019 07:04
[2019-07-12] MEDS: Solu-MEDROL 40mg Inj IVP SCH (09:34)
--- NOTE | 2019-07-12 09:34 | Infectious Diseases Prog Note ---
Assessment/Plan Assessment/Plan A 1. leucocytosis improving 2. angioedema 3. respiratory failure s/p emergent tracheostomy 4. HIV, AIDS 5. renal failure improving 6. tracheostomy site infection P 1. Continue Bactrim 2. Will need to start ART soon Subjective ROS Limited/Unobtainable: Yes Constitutional: Denies: fever Respiratory: Reports: other - has lots of respiratory secretions Gastrointestinal/Abdominal: Reports: other - had PEG placement yesterday Allergies: Coded Allergies: No Known Allergies (Unverified , 06/29/19) Objective Vital Signs Last 24 Hour Vital Signs Date Time Temp Pulse Resp B/P (MAP) Pulse Ox O2 Delivery O2 Flow Rate FiO2 07/12/19 08:03 73 23 100 T-Piece 8.0 30 07/12/19 08:03 100 T-Piece 8.0 30 07/12/19 08:00 70 21 135/81 (99) 100 07/12/19 08:00 8.0 30 07/12/19 07:00 66 25 130/84 (99) 100 07/12/19 06:00 67 29 132/81 (98) 100 07/12/19 05:00 61 25 129/81 (97) 100 07/12/19 04:00 97.5 66 20 124/74 (91) 100 07/12/19 04:00 Mechanical Ventilator 07/12/19 04:00 8.0 30 07/12/19 04:00 66 07/12/19 03:10 98.5 07/12/19 03:00 66 19 131/81 (98) 100 07/12/19 02:15 98.5 07/12/19 02:00 67 24 139/85 (103) 100 07/12/19 01:40 100 T-Piece 8.0 30 07/12/19 01:00 75 23 154/93 (113) 99 07/12/19 00:00 Mechanical Ventilator 07/12/19 00:00 98.5 74 19 142/92 (109) 100 07/11/19 23:00 75 24 148/88 (108) 99 07/11/19 22:00 71 16 128/76 (93) 100 07/11/19 21:00 67 22 143/89 (107) 100 07/11/19 20:00 8.0 30 07/11/19 20:00 98.5 69 28 137/90 (106) 100 07/11/19 20:00 Mechanical Ventilator 07/11/19 20:00 69 07/11/19 19:10 70 18 100 T-Piece 8.0 30 07/11/19 19:10 100 T-Piece 8.0 30 07/11/19 19:00 70 22 149/87 (107) 100 07/11/19 18:00 74 26 144/87 (106) 100 07/11/19 17:00 71 18 149/86 (107) 100 07/11/19 16:00 Mechanical Ventilator 07/11/19 16:00 98.3 75 21 144/87 (106) 100 07/11/19 16:00 8.0 30 07/11/19 16:00 72 07/11/19 15:34 151/93 07/11/19 15:00 88 21 151/93 (112) 100 07/11/19 14:00 72 29 143/92 (109) 100 07/11/19 13:14 100 T-Piece 8.0 30 07/11/19 13:00 76 16 137/87 (104) 99 07/11/19 12:07 81 23 30 07/11/19 12:00 98.2 85 17 157/95 (115) 100 07/11/19 12:00 Mechanical Ventilator 07/11/19 12:00 8.0 30 07/11/19 12:00 76 07/11/19 11:00 75 27 160/109 (126) 100 07/11/19 10:00 78 16 149/89 (109) 100 Height (Feet): 5 Height (Inches): 3.00 Weight (Pounds): 173 General Appearance: no acute distress HEENT: status post trach Respiratory/Chest: lungs clear, other - on T bar Cardiovascular: normal rate Abdomen: soft, non tender, other - GT feeding Extremities: no edema Neurologic/Psychiatric: alert, responsive Laboratory Tests Test 07/12/19 04:33 White Blood Count 12.1 K/UL (4.8-10.8) H Red Blood Count 2.90 M/UL (4.20-5.40) L Hemoglobin 8.8 G/DL (12.0-16.0) L Hematocrit 27.3 % (37.0-47.0) L Mean Corpuscular Volume 94 FL (80-99) Mean Corpuscular Hemoglobin 30.4 PG (27.0-31.0) Mean Corpuscular Hemoglobin Concent 32.4 G/DL (32.0-36.0) Red Cell Distribution Width 14.1 % (11.6-14.8) Platelet Count 221 K/UL (150-450) Mean Platelet Volume 7.2 FL (6.5-10.1) Neutrophils (%) (Auto) % (45.0-75.0) Lymphocytes (%) (Auto) % (20.0-45.0) Monocytes (%) (Auto) % (1.0-10.0) Eosinophils (%) (Auto) % (0.0-3.0) Basophils (%) (Auto) % (0.0-2.0) Sodium Level 141 MMOL/L (136-145) Potassium Level 3.6 MMOL/L (3.5-5.1) Chloride Level 109 MMOL/L (98-107) H Carbon Dioxide Level 26 MMOL/L (21-32) Anion Gap 6 mmol/L (5-15) Blood Urea Nitrogen 13 mg/dL (7-18) Creatinine 1.4 MG/DL (0.55-1.30) H Estimat Glomerular Filtration Rate 46.5 mL/min (>60) Glucose Level 98 MG/DL (74-106) Calcium Level 8.6 MG/DL (8.5-10.1) Current Medications Medications (Trade) Dose Ordered Sig/Dmitri Route PRN Reason Start Time Stop Time Status Last Admin Dose Admin Acetaminophen (Tylenol) 650 mg Q4H PRN NG Mild Pain/fever 07/10/19 13:30 08/09/19 13:29 07/12/19 01:43 Acetaminophen (Tylenol) 650 mg Q4H PRN RECTAL FEVER 07/10/19 13:45 07/29/19 11:00 Clonazepam (KlonoPIN) 1 mg Q6H PRN NG For Anxiety 07/10/19 13:45 07/16/19 09:14 Clonidine HCl (Catapres TTS-1) 1 patch QWEEK TDERMAL 07/04/19 15:00 08/03/19 14:59 07/11/19 15:34 Dextrose (Dextrose 50%) 25 ml Q30M PRN IV Hypoglycemia 06/30/19 15:00 07/30/19 14:59 Dextrose (Dextrose 50%) 50 ml Q30M PRN IV Hypoglycemia 06/30/19 15:00 07/30/19 14:59 Dextrose/Sodium Chloride 1,000 ml @ 100 mls/hr Q10H IV 07/11/19 12:45 08/10/19 12:44 07/11/19 22:43 Diphenhydramine HCl (Benadryl) 25 mg Q6H PRN IVP Muscle Spasm 06/29/19 11:01 07/29/19 11:00 07/10/19 23:01 Epinephrine 1 mg/ Dextrose 250 ml @ 0 mls/hr Q24H IV 06/29/19 16:00 07/29/19 15:59 Epoetin Eric (Epoetin Eric(ESRD on dialysis)) 8,000 unit SUBQ 07/01/19 21:00 07/31/19 20:59 07/10/19 21:37 Famotidine (Pepcid I.v.) 20 mg Q12HR IVP 06/30/19 21:00 07/30/19 20:59 07/11/19 20:42 Fentanyl Citrate 2500 mcg/Sodium Chloride 250 ml @ 0 mls/hr Q24H IV 06/29/19 12:30 07/13/19 12:29 07/09/19 03:35 Hydralazine HCl (Apresoline) 10 mg Q2H PRN IV For High Blood Pressure 07/02/19 21:15 08/01/19 21:14 07/04/19 18:32 Hydromorphone HCl (Dilaudid) 2 mg Q3H PRN IVP SEVERE BREAKTHROUGH PAIN 07/06/19 13:45 07/13/19 13:44 07/12/19 02:19 Insulin Aspart (NovoLOG) BEFORE MEALS AND HS SUBQ 06/30/19 16:30 07/30/19 16:29 07/11/19 20:45 Magnesium Oxide (Mag-Ox 400mg) 400 mg THREE TIMES A DAY NG 07/07/19 13:00 08/06/19 12:59 07/11/19 17:08 Methylprednisolone Sodium Succinate (Solu-MEDROL) 40 mg DAILY IVP 07/05/19 09:00 07/29/19 13:59 07/11/19 08:38 Metoclopramide HCl (Reglan) 10 mg Q6H PRN IVP Nausea & Vomiting 06/29/19 11:01 07/29/19 11:00 Mirtazapine (Remeron) 7.5 mg BEDTIME ORAL 07/12/19 21:00 08/11/19 00:00 Norepinephrine Bitartrate 8 mg/ Dextrose 508 ml @ 0 mls/hr Q24H IV 06/29/19 12:30 07/29/19 12:29 06/30/19 11:42 Ondansetron HCl (Zofran) 4 mg Q6H PRN IVP Nausea & Vomiting 06/29/19 11:01 07/29/19 11:00 07/11/19 12:58 Thiamine HCl 100 mg/Dextrose 56 ml @ 112 mls/hr DAILY IVPB 07/03/19 11:00 08/02/19 10:59 07/11/19 08:38 Trimethoprim/ Sulfamethoxazole (Bactrim-DS) 20 ml EVERY 12 HOURS NG 07/11/19 11:35 07/18/19 11:34 07/11/19 20:43 Vasopressin 100 units/Sodium Chloride 100 ml @ 2.4 mls/hr Q24H IV 06/29/19 14:15 07/29/19 14:14 06/30/19 15:40 Kwaku Garcia MD Jul 12, 2019 09:34
[2019-07-12] MEDS: Bactrim Susp 20ml NG SCH ×2 (09:35→21:21)
[2019-07-12] MEDS: Magnesium Oxide 400mg tab NG SCH ×3 (09:35→17:04)
[2019-07-12] MEDS: Thiamine HCl 100 MG in D5W 55 ML IVPB SCH (09:35)
--- NOTE | 2019-07-12 09:55 | Hematology/Onc Progress Note ---
Assessment/Plan Assessment/Plan A/R # Thrombocytopenia - potential causes multifactorial, evaluate liver and viral etiologies to begin, also could be related to underlying medications patient has received. 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 Significance/etiology uncertain. This can be seen in chronic pancreatitis as well as ductectatic neoplasm--> once more stable get Ct with iv cont --> DIC panel has been reviewed, NEgative --> Peripheral smear ordered to evaluate for blasts /schistocytes and none noted --> abx and other meds have been reviewed --> ok for ppx if plt >50k w/ either heparin or lovenox --> Transfuse if Plt < 20k and fever, or if Plt < 10k without fever --> plt trend 200-->87-->60-->38k-> 50k-->91k-->110k-->138k-->184k->207k-->241k- ->221k -> [id number] ordered -- > is neg --> ID eval and care per id # Anemia of chronic disease due to underlying chronic medical issues, multifactorial --> Anemia workup has been ordered and c/w acd --> No evidence of hemolysis is noted, peripheral smear has been reviewed. --> Hgb goal >7. Transfuse prn. --> Epogen or iron at this time is not particularly indicated --> Medications have been reviewed --> low threshold for gi evaluation in case has occult + --> hgb trend 8.7--> 9-->10.9-->9.7->8.6-->9.6-->8.8 # Leukocytosis --> wbc trend 17-->15-->14k->16-->19.4-->15-->15.9-->13.6-->17.1-->12.1 --> steriods for angioedema # Angioedeam --> ffp, steriods given --> s/p trach # Resp failure s/p trach --> to vent # Severe Hypotension --> is now off both pressors. # Hx of Hypertension # Cocaine abuse # ARF on HD now --> 07/02 --> now off hd # HIV++ The timing of this note does not necessarily reflect the time of the patient was seen. GREATLY APPRECIATE CONSULTATION. Subjective Allergies: Coded Allergies: No Known Allergies (Unverified , 06/29/19) Subjective 07/02: remains in the icu, onpressors and epogen, hgb stable 07/03: in icu, no events, on vent, no fever or chills, denies pain or sob 07/04: s/p vent/trach, on fentanyl gtt, id made aware of HIV++ 07/05: sedated, trach, off abx, labs reviewed 07/07: weaning off pressors, no fevers or chills, is on pcp ppx 07/08: weaning off vent, no bleeding, htn better on clonidine coughing intermittently 07/10: getting 1 unit prnc, weaning vent when possible 07/11: off the vent, on ivf, no complaints. on abx, labs noted, wbc trending up 07/12: vs stable, no pain or discomfort, on abx, Objective Objective Current Medications Medications (Trade) Dose Ordered Sig/Dmitri Route PRN Reason Start Time Stop Time Status Last Admin Dose Admin Acetaminophen (Tylenol) 650 mg Q4H PRN NG Mild Pain/fever 07/10/19 13:30 08/09/19 13:29 07/12/19 01:43 Acetaminophen (Tylenol) 650 mg Q4H PRN RECTAL FEVER 07/10/19 13:45 07/29/19 11:00 Clonazepam (KlonoPIN) 1 mg Q6H PRN NG For Anxiety 07/10/19 13:45 07/16/19 09:14 Clonidine HCl (Catapres TTS-1) 1 patch QWEEK TDERMAL 07/04/19 15:00 08/03/19 14:59 07/11/19 15:34 Dextrose (Dextrose 50%) 25 ml Q30M PRN IV Hypoglycemia 06/30/19 15:00 07/30/19 14:59 Dextrose (Dextrose 50%) 50 ml Q30M PRN IV Hypoglycemia 06/30/19 15:00 07/30/19 14:59 Dextrose/Sodium Chloride 1,000 ml @ 100 mls/hr Q10H IV 07/11/19 12:45 08/10/19 12:44 07/11/19 22:43 Diphenhydramine HCl (Benadryl) 25 mg Q6H PRN IVP Muscle Spasm 06/29/19 11:01 07/29/19 11:00 07/10/19 23:01 Epinephrine 1 mg/ Dextrose 250 ml @ 0 mls/hr Q24H IV 06/29/19 16:00 07/29/19 15:59 Epoetin Eric (Epoetin Eric(ESRD on dialysis)) 8,000 unit MON- SUBQ 07/01/19 21:00 07/31/19 20:59 07/10/19 21:37 Famotidine (Pepcid I.v.) 20 mg Q12HR IVP 06/30/19 21:00 07/30/19 20:59 07/12/19 09:34 Fentanyl Citrate 2500 mcg/Sodium Chloride 250 ml @ 0 mls/hr Q24H IV 06/29/19 12:30 07/13/19 12:29 07/09/19 03:35 Hydralazine HCl (Apresoline) 10 mg Q2H PRN IV For High Blood Pressure 07/02/19 21:15 08/01/19 21:14 07/04/19 18:32 Hydromorphone HCl (Dilaudid) 2 mg Q3H PRN IVP SEVERE BREAKTHROUGH PAIN 07/06/19 13:45 07/13/19 13:44 07/12/19 02:19 Insulin Aspart (NovoLOG) BEFORE MEALS AND HS SUBQ 06/30/19 16:30 07/30/19 16:29 07/11/19 20:45 Magnesium Oxide (Mag-Ox 400mg) 400 mg THREE TIMES A DAY NG 07/07/19 13:00 08/06/19 12:59 07/12/19 09:35 Methylprednisolone Sodium Succinate (Solu-MEDROL) 40 mg DAILY IVP 07/05/19 09:00 07/29/19 13:59 07/12/19 09:34 Metoclopramide HCl (Reglan) 10 mg Q6H PRN IVP Nausea & Vomiting 06/29/19 11:01 07/29/19 11:00 Mirtazapine (Remeron) 7.5 mg BEDTIME ORAL 07/12/19 21:00 08/11/19 00:00 Norepinephrine Bitartrate 8 mg/ Dextrose 508 ml @ 0 mls/hr Q24H IV 06/29/19 12:30 07/29/19 12:29 06/30/19 11:42 Ondansetron HCl (Zofran) 4 mg Q6H PRN IVP Nausea & Vomiting 06/29/19 11:01 07/29/19 11:00 07/11/19 12:58 Thiamine HCl 100 mg/Dextrose 56 ml @ 112 mls/hr DAILY IVPB 07/03/19 11:00 08/02/19 10:59 07/12/19 09:35 Trimethoprim/ Sulfamethoxazole (Bactrim-DS) 20 ml EVERY 12 HOURS NG 07/11/19 11:35 07/18/19 11:34 07/12/19 09:35 Vasopressin 100 units/Sodium Chloride 100 ml @ 2.4 mls/hr Q24H IV 06/29/19 14:15 07/29/19 14:14 06/30/19 15:40 Last 24 Hour Vital Signs Date Time Temp Pulse Resp B/P (MAP) Pulse Ox O2 Delivery O2 Flow Rate FiO2 07/12/19 08:03 73 23 100 T-Piece 8.0 30 07/12/19 08:03 100 T-Piece 8.0 30 07/12/19 08:00 70 21 135/81 (99) 100 07/12/19 08:00 8.0 30 07/12/19 07:00 66 25 130/84 (99) 100 07/12/19 06:00 67 29 132/81 (98) 100 07/12/19 05:00 61 25 129/81 (97) 100 07/12/19 04:00 97.5 66 20 124/74 (91) 100 07/12/19 04:00 Mechanical Ventilator 07/12/19 04:00 8.0 30 07/12/19 04:00 66 07/12/19 03:10 98.5 07/12/19 03:00 66 19 131/81 (98) 100 07/12/19 02:15 98.5 07/12/19 02:00 67 24 139/85 (103) 100 07/12/19 01:40 100 T-Piece 8.0 30 07/12/19 01:00 75 23 154/93 (113) 99 07/12/19 00:00 Mechanical Ventilator 07/12/19 00:00 98.5 74 19 142/92 (109) 100 07/11/19 23:00 75 24 148/88 (108) 99 07/11/19 22:00 71 16 128/76 (93) 100 07/11/19 21:00 67 22 143/89 (107) 100 07/11/19 20:00 8.0 30 07/11/19 20:00 98.5 69 28 137/90 (106) 100 07/11/19 20:00 Mechanical Ventilator 07/11/19 20:00 69 07/11/19 19:10 70 18 100 T-Piece 8.0 30 07/11/19 19:10 100 T-Piece 8.0 30 07/11/19 19:00 70 22 149/87 (107) 100 07/11/19 18:00 74 26 144/87 (106) 100 07/11/19 17:00 71 18 149/86 (107) 100 07/11/19 16:00 Mechanical Ventilator 07/11/19 16:00 98.3 75 21 144/87 (106) 100 07/11/19 16:00 8.0 30 07/11/19 16:00 72 07/11/19 15:34 151/93 07/11/19 15:00 88 21 151/93 (112) 100 07/11/19 14:00 72 29 143/92 (109) 100 07/11/19 13:14 100 T-Piece 8.0 30 07/11/19 13:00 76 16 137/87 (104) 99 07/11/19 12:07 81 23 30 07/11/19 12:00 98.2 85 17 157/95 (115) 100 07/11/19 12:00 Mechanical Ventilator 07/11/19 12:00 8.0 30 07/11/19 12:00 76 07/11/19 11:00 75 27 160/109 (126) 100 07/11/19 10:00 78 16 149/89 (109) 100 07/11/19 09:00 98.3 77 13 148/86 (106) 99 07/11/19 08:00 8.0 30 07/11/19 08:00 80 07/11/19 08:00 80 29 151/86 (107) 99 07/11/19 08:00 Mechanical Ventilator 07/11/19 07:21 77 20 98 T-Piece 8.0 30 07/11/19 07:20 98 T-Piece 8.0 30 07/11/19 07:00 73 27 139/89 (106) 97 07/11/19 06:00 91 27 167/86 (113) 100 07/11/19 05:00 78 28 144/79 (100) 100 07/11/19 04:00 75 07/11/19 04:00 Mechanical Ventilator 07/11/19 04:00 8.0 30 07/11/19 04:00 98.5 75 20 154/109 (124) 100 07/11/19 03:00 75 19 151/91 (111) 100 07/11/19 02:00 76 22 141/84 (103) 100 07/11/19 01:05 100 T-Piece 8.0 30 07/11/19 01:00 87 22 161/90 (113) 100 07/11/19 00:00 8.0 30 07/11/19 00:00 Mechanical Ventilator 07/11/19 00:00 98.2 85 25 141/83 (102) 100 07/11/19 00:00 85 07/10/19 23:00 84 29 163/93 (116) 100 07/10/19 22:00 80 25 128/78 (95) 100 07/10/19 21:00 83 16 156/139 (145) 100 07/10/19 20:00 98.0 83 10 148/83 (104) 100 07/10/19 20:00 8.0 30 07/10/19 20:00 Mechanical Ventilator 07/10/19 20:00 83 07/10/19 19:09 74 22 100 T-Piece 8.0 30 07/10/19 19:09 100 T-Piece 8.0 30 07/10/19 19:00 75 34 146/82 (103) 100 07/10/19 18:00 82 20 161/101 (121) 100 07/10/19 17:00 85 27 148/90 (109) 100 07/10/19 16:00 Mechanical Ventilator 07/10/19 16:00 70 07/10/19 16:00 99.0 78 26 124/73 (90) 99 07/10/19 16:00 8.0 30 07/10/19 15:54 100 T-Piece 8.0 30 07/10/19 15:53 78 24 100 T-Piece 8.0 30 07/10/19 15:11 84 18 100 T-Piece 8.0 30 07/10/19 15:00 76 10 129/81 (97) 100 07/10/19 14:00 72 21 121/81 (94) 100 07/10/19 13:00 73 30 124/74 (91) 100 07/10/19 12:41 71 27 100 T-Piece 8.0 30 07/10/19 12:00 71 07/10/19 12:00 Mechanical Ventilator 07/10/19 12:00 99.1 87 21 136/79 (98) 94 07/10/19 11:10 82 20 100 T-Piece 8.0 30 07/10/19 11:00 81 3 133/82 (99) 100 07/10/19 10:00 80 11 126/81 (96) 100 Intake and Output 07/11/19 07/12/19 18:59 06:59 Intake Total 641 ml 1252 ml Output Total 1290 ml 990 ml Balance -649 ml 262 ml Intake Free Water 60 ml 50 ml IV Total 581 ml 1202 ml Output Urine Total 1290 ml 990 ml Labs Test 07/09/19 12:14 07/09/19 15:43 07/10/19 04:25 07/10/19 13:45 Arterial Blood pH 7.337 (7.350-7.450) Arterial Blood Partial Pressure CO2 32.4 mmHg (35.0-45.0) Arterial Blood Partial Pressure O2 87.7 mmHg (75.0-100.0) Arterial Blood HCO3 17.0 mmol/L (22.0-26.0) Arterial Blood Oxygen Saturation 96.1 % (95-100) Arterial Blood Base Excess -8.0 (-2-2) Maxim Test Positive Random Vancomycin Level 9.2 ug/mL White Blood Count 12.6 K/UL (4.8-10.8) Red Blood Count 2.56 M/UL (4.20-5.40) Hemoglobin 7.9 G/DL (12.0-16.0) Hematocrit 24.4 % (37.0-47.0) Mean Corpuscular Volume 96 FL (80-99) Mean Corpuscular Hemoglobin 30.9 PG (27.0-31.0) Mean Corpuscular Hemoglobin Concent 32.4 G/DL (32.0-36.0) Red Cell Distribution Width 14.8 % (11.6-14.8) Platelet Count 224 K/UL (150-450) Mean Platelet Volume 7.1 FL (6.5-10.1) Neutrophils (%) (Auto) % (45.0-75.0) Lymphocytes (%) (Auto) % (20.0-45.0) Monocytes (%) (Auto) % (1.0-10.0) Eosinophils (%) (Auto) % (0.0-3.0) Basophils (%) (Auto) % (0.0-2.0) Sodium Level 146 MMOL/L (136-145) Potassium Level 4.2 MMOL/L (3.5-5.1) Chloride Level 114 MMOL/L (98-107) Carbon Dioxide Level 23 MMOL/L (21-32) Anion Gap 9 mmol/L (5-15) Blood Urea Nitrogen 17 mg/dL (7-18) Creatinine 1.4 MG/DL (0.55-1.30) Estimat Glomerular Filtration Rate 46.5 mL/min (>60) Glucose Level 117 MG/DL (74-106) Calcium Level 8.3 MG/DL (8.5-10.1) Prothrombin Time 10.6 SEC (9.30-11.50) Prothromb Time International Ratio 1.0 (0.9-1.1) Activated Partial Thromboplast Time 27 SEC (23-33) Test 07/10/19 15:35 07/10/19 18:25 07/11/19 03:30 07/12/19 04:33 Arterial Blood pH 7.416 (7.350-7.450) Arterial Blood Partial Pressure CO2 35.1 mmHg (35.0-45.0) Arterial Blood Partial Pressure O2 89.8 mmHg (75.0-100.0) Arterial Blood HCO3 22.1 mmol/L (22.0-26.0) Arterial Blood Oxygen Saturation 96.2 % (95-100) Arterial Blood Base Excess -2.1 (-2-2) Maxim Test Positive Random Vancomycin Level 13.1 ug/mL White Blood Count 17.1 K/UL (4.8-10.8) 12.1 K/UL (4.8-10.8) Red Blood Count 3.08 M/UL (4.20-5.40) 2.90 M/UL (4.20-5.40) Hemoglobin 9.6 G/DL (12.0-16.0) 8.8 G/DL (12.0-16.0) Hematocrit 29.1 % (37.0-47.0) 27.3 % (37.0-47.0) Mean Corpuscular Volume 94 FL (80-99) 94 FL (80-99) Mean Corpuscular Hemoglobin 31.1 PG (27.0-31.0) 30.4 PG (27.0-31.0) Mean Corpuscular Hemoglobin Concent 32.9 G/DL (32.0-36.0) 32.4 G/DL (32.0-36.0) Red Cell Distribution Width 14.8 % (11.6-14.8) 14.1 % (11.6-14.8) Platelet Count 241 K/UL (150-450) 221 K/UL (150-450) Mean Platelet Volume 7.1 FL (6.5-10.1) 7.2 FL (6.5-10.1) Neutrophils (%) (Auto) % (45.0-75.0) % (45.0-75.0) Lymphocytes (%) (Auto) % (20.0-45.0) % (20.0-45.0) Monocytes (%) (Auto) % (1.0-10.0) % (1.0-10.0) Eosinophils (%) (Auto) % (0.0-3.0) % (0.0-3.0) Basophils (%) (Auto) % (0.0-2.0) % (0.0-2.0) Differential Total Cells Counted 100 Neutrophils % (Manual) 86 % (45-75) Lymphocytes % (Manual) 4 % (20-45) Monocytes % (Manual) 8 % (1-10) Eosinophils % (Manual) 2 % (0-3) Basophils % (Manual) 0 % (0-2) Band Neutrophils 0 % (0-8) Platelet Estimate Adequate Platelet Morphology Normal Anisocytosis 1+ Sodium Level 143 MMOL/L (136-145) 141 MMOL/L (136-145) Potassium Level 4.1 MMOL/L (3.5-5.1) 3.6 MMOL/L (3.5-5.1) Chloride Level 109 MMOL/L (98-107) 109 MMOL/L (98-107) Carbon Dioxide Level 26 MMOL/L (21-32) 26 MMOL/L (21-32) Anion Gap 8 mmol/L (5-15) 6 mmol/L (5-15) Blood Urea Nitrogen 18 mg/dL (7-18) 13 mg/dL (7-18) Creatinine 1.3 MG/DL (0.55-1.30) 1.4 MG/DL (0.55-1.30) Estimat Glomerular Filtration Rate 50.7 mL/min (>60) 46.5 mL/min (>60) Glucose Level 76 MG/DL (74-106) 98 MG/DL (74-106) Calcium Level 8.7 MG/DL (8.5-10.1) 8.6 MG/DL (8.5-10.1) Height (Feet): 5 Height (Inches): 3.00 Weight (Pounds): 173 Objective Physical Exam: Vitals: reviewed General Appearance: NAD HEENT: normocephalic, atraumatic ++ trach VENT Neck: non-tender, normal alignment Respiratory/Chest: normal breath sounds bilaterally Cardiovascular/Chest: normal peripheral pulses, normal rate Abdomen: normal bowel sounds, soft, nontender Extremities: normal range of motion Jordan Nguyen MD Jul 12, 2019 09:55
[2019-07-12] MEDS: D5 1/2NS 1,000 ML IV SCH ×2 (10:03→19:00)
--- NOTE | 2019-07-12 11:05 | Nephrology Progress Note ---
Assessment/Plan Problem List: (1) Cocaine abuse (2) Angioedema (3) Hypertension (4) Tracheostomy hemorrhage (5) JUANITA (acute kidney injury) Plan CBC, BMP today and tomorrow Abx per ID Contact isolation. Continue to monitor off ventilator with suction and cool air humidifier w/ RT suction Will continue to monitor renal function and respond accordingly . PER GI: Peg can be used today. Laboratory Apparatus Glass Blower: Citlalli RN Contacting catering operations manager for diet orders--states she is working on it now, and will call ICU with new orders Requested for this to be done now. Prompt diet order necessary for healing. Subjective Subjective No new events. Pt remains stable. Objective Objective Last 24 Hour Vital Signs Date Time Temp Pulse Resp B/P (MAP) Pulse Ox O2 Delivery O2 Flow Rate FiO2 07/12/19 08:03 73 23 100 T-Piece 8.0 30 07/12/19 08:03 100 T-Piece 8.0 30 07/12/19 08:00 70 21 135/81 (99) 100 07/12/19 08:00 8.0 30 07/12/19 07:00 66 25 130/84 (99) 100 07/12/19 06:00 67 29 132/81 (98) 100 07/12/19 05:00 61 25 129/81 (97) 100 07/12/19 04:00 97.5 66 20 124/74 (91) 100 07/12/19 04:00 Mechanical Ventilator 07/12/19 04:00 8.0 30 07/12/19 04:00 66 07/12/19 03:10 98.5 07/12/19 03:00 66 19 131/81 (98) 100 07/12/19 02:15 98.5 07/12/19 02:00 67 24 139/85 (103) 100 07/12/19 01:40 100 T-Piece 8.0 30 07/12/19 01:00 75 23 154/93 (113) 99 07/12/19 00:00 Mechanical Ventilator 07/12/19 00:00 98.5 74 19 142/92 (109) 100 07/11/19 23:00 75 24 148/88 (108) 99 07/11/19 22:00 71 16 128/76 (93) 100 07/11/19 21:00 67 22 143/89 (107) 100 07/11/19 20:00 8.0 30 07/11/19 20:00 98.5 69 28 137/90 (106) 100 07/11/19 20:00 Mechanical Ventilator 07/11/19 20:00 69 07/11/19 19:10 70 18 100 T-Piece 8.0 30 07/11/19 19:10 100 T-Piece 8.0 30 07/11/19 19:00 70 22 149/87 (107) 100 07/11/19 18:00 74 26 144/87 (106) 100 07/11/19 17:00 71 18 149/86 (107) 100 07/11/19 16:00 Mechanical Ventilator 07/11/19 16:00 98.3 75 21 144/87 (106) 100 07/11/19 16:00 8.0 30 07/11/19 16:00 72 07/11/19 15:34 151/93 07/11/19 15:00 88 21 151/93 (112) 100 07/11/19 14:00 72 29 143/92 (109) 100 07/11/19 13:14 100 T-Piece 8.0 30 07/11/19 13:00 76 16 137/87 (104) 99 07/11/19 12:07 81 23 30 07/11/19 12:00 98.2 85 17 157/95 (115) 100 07/11/19 12:00 Mechanical Ventilator 07/11/19 12:00 8.0 30 07/11/19 12:00 76 07/11/19 11:00 75 27 160/109 (126) 100 Intake and Output 07/11/19 07/12/19 18:59 06:59 Intake Total 641 ml 1252 ml Output Total 1290 ml 990 ml Balance -649 ml 262 ml Intake Free Water 60 ml 50 ml IV Total 581 ml 1202 ml Output Urine Total 1290 ml 990 ml Laboratory Tests 07/12/19 04:33: White Blood Count 12.1H, Red Blood Count 2.90L, Hemoglobin 8.8L, Hematocrit 27.3L, Mean Corpuscular Volume 94, Mean Corpuscular Hemoglobin 30.4, Mean Corpuscular Hemoglobin Concent 32.4, Red Cell Distribution Width 14.1, Platelet Count 221, Mean Platelet Volume 7.2, Neutrophils (%) (Auto) , Lymphocytes (%) ( Auto) , Monocytes (%) (Auto) , Eosinophils (%) (Auto) , Basophils (%) (Auto) , Sodium Level 141, Potassium Level 3.6, Chloride Level 109H, Carbon Dioxide Level 26, Anion Gap 6, Blood Urea Nitrogen 13, Creatinine 1.4H, Estimat Glomerular Filtration Rate 46.5, Glucose Level 98, Calcium Level 8.6 Height (Feet): 5 Height (Inches): 3.00 Weight (Pounds): 173 General Appearance: WD/WN, no apparent distress, alert EENT: PERRL/EOMI Neck: normal inspection Cardiovascular: normal peripheral pulses, normal rate, regular rhythm Respiratory/Chest: lungs clear Abdomen: normal bowel sounds, non tender, soft Extremities: normal range of motion, non-tender, normal capillary refill Neurologic: public speaking coach II-XII grossly normal, no motor/sensory deficits, alert, oriented x 3, responsive, normal mood/affect Objective Ms. Burnett appears calm at this time. She is awake and alert. The vent has been removed, and cool aerosol continues. Presently, she is MRSA +, so contact isolation continues. She continues to be producing clear yellow urine noted in patel bag/tubing at approximately 60 ml/hr Neuro: A&Ox4, PORTABLE MACHINE SANDER intact CVS: RRR Lungs:clear, trached (cool mist) HEENT: head atraumatic, PERRLA, nose/mouth pink-moist mucosa, tracheostomy clean /no drainage noted to gauze Abd: no ttp, BS +, peg placed GI/: patel, BS+ Extremities: no edema, pop/pedal 2+ (sequentials in place and on) Skin: normal for ethnicity, no decub ulcers Sharee Alvarez N.P. Jul 12, 2019 11:05
[2019-07-12] MEDS: fentaNYL Citrate 2,500 MCG in NS 200 ML IV SCH (12:01)
--- NOTE | 2019-07-12 13:22 | Surgery Progress Note ---
Surgery Progress Note Subjective Additional Comments no acute events doing much better today awake, responsive. trach site improved Objective Last 24 Hour Vital Signs Date Time Temp Pulse Resp B/P (MAP) Pulse Ox O2 Delivery O2 Flow Rate FiO2 07/12/19 08:03 73 23 100 T-Piece 8.0 30 07/12/19 08:03 100 T-Piece 8.0 30 07/12/19 08:00 70 21 135/81 (99) 100 07/12/19 08:00 Mechanical Ventilator 07/12/19 08:00 8.0 30 07/12/19 07:00 66 25 130/84 (99) 100 07/12/19 06:00 67 29 132/81 (98) 100 07/12/19 05:00 61 25 129/81 (97) 100 07/12/19 04:00 97.5 66 20 124/74 (91) 100 07/12/19 04:00 Mechanical Ventilator 07/12/19 04:00 8.0 30 07/12/19 04:00 66 07/12/19 03:10 98.5 07/12/19 03:00 66 19 131/81 (98) 100 07/12/19 02:15 98.5 07/12/19 02:00 67 24 139/85 (103) 100 07/12/19 01:40 100 T-Piece 8.0 30 07/12/19 01:00 75 23 154/93 (113) 99 07/12/19 00:00 Mechanical Ventilator 07/12/19 00:00 98.5 74 19 142/92 (109) 100 07/11/19 23:00 75 24 148/88 (108) 99 07/11/19 22:00 71 16 128/76 (93) 100 07/11/19 21:00 67 22 143/89 (107) 100 07/11/19 20:00 8.0 30 07/11/19 20:00 98.5 69 28 137/90 (106) 100 07/11/19 20:00 Mechanical Ventilator 07/11/19 20:00 69 07/11/19 19:10 70 18 100 T-Piece 8.0 30 07/11/19 19:10 100 T-Piece 8.0 30 07/11/19 19:00 70 22 149/87 (107) 100 07/11/19 18:00 74 26 144/87 (106) 100 07/11/19 17:00 71 18 149/86 (107) 100 07/11/19 16:00 Mechanical Ventilator 07/11/19 16:00 98.3 75 21 144/87 (106) 100 07/11/19 16:00 8.0 30 07/11/19 16:00 72 07/11/19 15:34 151/93 07/11/19 15:00 88 21 151/93 (112) 100 07/11/19 14:00 72 29 143/92 (109) 100 I&O Intake and Output 07/11/19 07/12/19 19:00 07:00 Intake Total 741 ml 1252 ml Output Total 1300 ml 915 ml Balance -559 ml 337 ml Intake Free Water 60 ml 50 ml IV Total 681 ml 1202 ml Output Urine Total 1300 ml 915 ml Dressing: saturated Wound: other Drains: other Cardiovascular: RSR Respiratory: clear Abdomen: soft, non-tender, present bowel sounds, other, decreased bowel sounds Extremities: no edema, no tenderness, no cyanosis Laboratory Tests Test 07/12/19 04:33 White Blood Count 12.1 K/UL (4.8-10.8) H Red Blood Count 2.90 M/UL (4.20-5.40) L Hemoglobin 8.8 G/DL (12.0-16.0) L Hematocrit 27.3 % (37.0-47.0) L Mean Corpuscular Volume 94 FL (80-99) Mean Corpuscular Hemoglobin 30.4 PG (27.0-31.0) Mean Corpuscular Hemoglobin Concent 32.4 G/DL (32.0-36.0) Red Cell Distribution Width 14.1 % (11.6-14.8) Platelet Count 221 K/UL (150-450) Mean Platelet Volume 7.2 FL (6.5-10.1) Neutrophils (%) (Auto) % (45.0-75.0) Lymphocytes (%) (Auto) % (20.0-45.0) Monocytes (%) (Auto) % (1.0-10.0) Eosinophils (%) (Auto) % (0.0-3.0) Basophils (%) (Auto) % (0.0-2.0) Sodium Level 141 MMOL/L (136-145) Potassium Level 3.6 MMOL/L (3.5-5.1) Chloride Level 109 MMOL/L (98-107) H Carbon Dioxide Level 26 MMOL/L (21-32) Anion Gap 6 mmol/L (5-15) Blood Urea Nitrogen 13 mg/dL (7-18) Creatinine 1.4 MG/DL (0.55-1.30) H Estimat Glomerular Filtration Rate 46.5 mL/min (>60) Glucose Level 98 MG/DL (74-106) Calcium Level 8.6 MG/DL (8.5-10.1) Plan Problems: (1) Angioedema Assessment & Plan: airway trach as per reports trach stable currently sutures in place dressings changed HD line in place and noted off vent will follow with recs thank you (2) Tracheostomy hemorrhage Assessment & Plan: stable dressings dry will monitor doing well may need revision given mucus leak (3) Tracheostomy complication Assessment & Plan: if continues to have leak of mucus with cough and possible infection of trach site may need revision 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
[2019-07-12] MEDS: Vasopressin 100 UNITS in NS 95 ML IV SCH (14:15)
[2019-07-12] MEDS: EPINEPHrine 1mg/1ml Amp 1 MG in D5W 249 ML IV SCH (16:00)
--- NOTE | 2019-07-12 16:33 | Pulmonolgy Critical Care Note ---
Critical Care - Asmt/Plan Assessment/Plan: Pulmonary CCM Progress Note Patient is a 59-year-old female admitted with acute airway compromise complicating Angioedema, she has a history of hypertension. Presented with a severe allergic reaction. She woke up 2 hours prior to arrival with her tongue being swollen. S/p 4 unit transfusion on day of admission - post OR was hypotensive - had EBL 2000ml, pressors weaned off, weaning to TC as tolerated Oliguric, Renal following, renal function improving, required HD Gokul TC Allergies: No Known Allergies Past Medical History: Hypertension All Other Systems: negative except mentioned in HPI Physical Exam Vital signs noted, on ACV via tracheostomy General Appearance: Mildly sedated, interactive Head: normocephalic, atraumatic Eyes: bilateral eye PERRL, bilateral eye EOMI ENT: Mosit mm. tracheostomy site, no active bleeding Neck: swollen, no LN Respiratory: chest non-tender, lungs clear, normal breath sounds Cardiovascular: Normal HS1, HS2, regular rate, rhythm, no murmur Gastrointestinal: normal bowel sounds, non tender, no mass, no organomegaly, no bruit, non-distended Musculoskeletal: back normal, gait/station normal, normal range of motion Neurological: No focal signs, moving all limbs, PERRL Impression: Angioedema s/p Emergent Tracheostomy ARF Previous Hypertension Cocaine use previously Plan Renal following Cardiology following Wean as tolerated ISS Monitor labs PRN sedation SCD Wean to TC as tolerated PPX Continue current management EKG: tachycardiac: NSR, no acute ST changes Chest X-Ray: no consolidation, no effusion, no pneumothorax, no acute cardiopulmonary disease, tracheostomy position appropriate Critical Care - Objective Last 24 Hour Vital Signs Date Time Temp Pulse Resp B/P (MAP) Pulse Ox O2 Delivery O2 Flow Rate FiO2 07/12/19 15:11 100 T-Piece 6.0 28 07/12/19 14:00 68 27 134/87 (103) 100 07/12/19 13:30 100 T-Piece 8.0 30 07/12/19 13:00 77 21 117/77 (90) 100 07/12/19 12:00 8.0 30 07/12/19 12:00 60 07/12/19 12:00 Mechanical Ventilator 07/12/19 12:00 98.9 76 26 132/68 (89) 100 07/12/19 11:00 59 20 129/76 (93) 100 07/12/19 10:00 70 20 126/76 (93) 100 07/12/19 09:00 97.8 67 23 123/75 (91) 100 07/12/19 08:03 73 23 100 T-Piece 8.0 30 07/12/19 08:03 100 T-Piece 8.0 30 07/12/19 08:00 70 21 135/81 (99) 100 07/12/19 08:00 Mechanical Ventilator 07/12/19 08:00 64 07/12/19 08:00 8.0 30 07/12/19 07:00 66 25 130/84 (99) 100 07/12/19 06:00 67 29 132/81 (98) 100 07/12/19 05:00 61 25 129/81 (97) 100 07/12/19 04:00 97.5 66 20 124/74 (91) 100 07/12/19 04:00 Mechanical Ventilator 07/12/19 04:00 8.0 30 07/12/19 04:00 66 07/12/19 03:10 98.5 07/12/19 03:00 66 19 131/81 (98) 100 07/12/19 02:15 98.5 07/12/19 02:00 67 24 139/85 (103) 100 07/12/19 01:40 100 T-Piece 8.0 30 07/12/19 01:00 75 23 154/93 (113) 99 07/12/19 00:00 Mechanical Ventilator 07/12/19 00:00 98.5 74 19 142/92 (109) 100 07/11/19 23:00 75 24 148/88 (108) 99 07/11/19 22:00 71 16 128/76 (93) 100 07/11/19 21:00 67 22 143/89 (107) 100 07/11/19 20:00 8.0 30 07/11/19 20:00 98.5 69 28 137/90 (106) 100 07/11/19 20:00 Mechanical Ventilator 07/11/19 20:00 69 07/11/19 19:10 70 18 100 T-Piece 8.0 30 07/11/19 19:10 100 T-Piece 8.0 30 07/11/19 19:00 70 22 149/87 (107) 100 07/11/19 18:00 74 26 144/87 (106) 100 07/11/19 17:00 71 18 149/86 (107) 100 Accucheck: 142 Critical Care - Subjective ROS Limited/Unobtainable: No FI02: 28 Vent Support Breath Rate: 16 Vent Support Mode: AC Vent Tidal Volume: 550 Sputum Amount: Moderate PEEP: 5.0 PIP: 21 Tube Feeding Amount: 20 I&O: Intake and Output 07/11/19 07/12/19 19:00 07:00 Intake Total 741 ml 1252 ml Output Total 1300 ml 915 ml Balance -559 ml 337 ml Intake Free Water 60 ml 50 ml IV Total 681 ml 1202 ml Output Urine Total 1300 ml 915 ml Deangelo John MD Jul 12, 2019 16:33
[2019-07-12] MEDS: DiphenhydrAMINE 50mg/ml Inj IVP PRN (17:05)
--- NOTE | 2019-07-12 17:23 | General Progress Note ---
Assessment/Plan Status: stable, progressing Assessment/Plan: Assessment - Angioedema, s/p emergency trach - abnormal LFT, ? Rhabdo related - improving - borderline CBD dilation on U/S - abnormal Lipase, ? significance - dysphagia, did not pass swallow - now with PEG - Thrombocytopenia - improved - HIV (+) - Drug abuse Recommendations - Continue tube feeds - GT care - Monitor labs - will consider CT imaging of abd once out of ICU - Pepcid - I will return next week to see patient Subjective Allergies: Coded Allergies: No Known Allergies (Unverified , 06/29/19) Subjective awake POD #1 s/p PEG tolerating TF Objective Last 24 Hour Vital Signs Date Time Temp Pulse Resp B/P (MAP) Pulse Ox O2 Delivery O2 Flow Rate FiO2 07/12/19 15:11 100 T-Piece 6.0 28 07/12/19 14:00 68 27 134/87 (103) 100 07/12/19 13:30 100 T-Piece 8.0 30 07/12/19 13:00 77 21 117/77 (90) 100 07/12/19 12:00 8.0 30 07/12/19 12:00 60 07/12/19 12:00 Mechanical Ventilator 07/12/19 12:00 98.9 76 26 132/68 (89) 100 07/12/19 11:00 59 20 129/76 (93) 100 07/12/19 10:00 70 20 126/76 (93) 100 07/12/19 09:00 97.8 67 23 123/75 (91) 100 07/12/19 08:03 73 23 100 T-Piece 8.0 30 07/12/19 08:03 100 T-Piece 8.0 30 07/12/19 08:00 70 21 135/81 (99) 100 07/12/19 08:00 Mechanical Ventilator 07/12/19 08:00 64 07/12/19 08:00 8.0 30 07/12/19 07:00 66 25 130/84 (99) 100 07/12/19 06:00 67 29 132/81 (98) 100 07/12/19 05:00 61 25 129/81 (97) 100 07/12/19 04:00 97.5 66 20 124/74 (91) 100 07/12/19 04:00 Mechanical Ventilator 07/12/19 04:00 8.0 30 07/12/19 04:00 66 07/12/19 03:10 98.5 07/12/19 03:00 66 19 131/81 (98) 100 07/12/19 02:15 98.5 07/12/19 02:00 67 24 139/85 (103) 100 07/12/19 01:40 100 T-Piece 8.0 30 07/12/19 01:00 75 23 154/93 (113) 99 07/12/19 00:00 Mechanical Ventilator 07/12/19 00:00 98.5 74 19 142/92 (109) 100 07/11/19 23:00 75 24 148/88 (108) 99 07/11/19 22:00 71 16 128/76 (93) 100 07/11/19 21:00 67 22 143/89 (107) 100 07/11/19 20:00 8.0 30 07/11/19 20:00 98.5 69 28 137/90 (106) 100 07/11/19 20:00 Mechanical Ventilator 07/11/19 20:00 69 07/11/19 19:10 70 18 100 T-Piece 8.0 30 07/11/19 19:10 100 T-Piece 8.0 30 07/11/19 19:00 70 22 149/87 (107) 100 07/11/19 18:00 74 26 144/87 (106) 100 Intake and Output 07/11/19 07/12/19 19:00 07:00 Intake Total 741 ml 1252 ml Output Total 1300 ml 915 ml Balance -559 ml 337 ml Intake Free Water 60 ml 50 ml IV Total 681 ml 1202 ml Output Urine Total 1300 ml 915 ml Laboratory Tests 07/12/19 04:33: White Blood Count 12.1H, Red Blood Count 2.90L, Hemoglobin 8.8L, Hematocrit 27.3L, Mean Corpuscular Volume 94, Mean Corpuscular Hemoglobin 30.4, Mean Corpuscular Hemoglobin Concent 32.4, Red Cell Distribution Width 14.1, Platelet Count 221, Mean Platelet Volume 7.2, Neutrophils (%) (Auto) , Lymphocytes (%) ( Auto) , Monocytes (%) (Auto) , Eosinophils (%) (Auto) , Basophils (%) (Auto) , Sodium Level 141, Potassium Level 3.6, Chloride Level 109H, Carbon Dioxide Level 26, Anion Gap 6, Blood Urea Nitrogen 13, Creatinine 1.4H, Estimat Glomerular Filtration Rate 46.5, Glucose Level 98, Calcium Level 8.6 Height (Feet): 5 Height (Inches): 3.00 Weight (Pounds): 173 Objective WDWN AA woman NCAT (+) trach Coarse BS RR abd soft, (+) GT no edema Elisabeth Sommers MD Jul 12, 2019 17:23
[2019-07-12] MEDS: Epoetin Alfa-EPBX(ESRD on dialysis)4000 units/ml vial SUBQ SCH (21:21)
[2019-07-12] MEDS ORDERED: D5 1/2NS 1000ml IV ONE (21:32)
[2019-07-12] MEDS ORDERED: Tubing IV Secondary IV ONE (21:32)
[2019-07-13] VITALS (11 sets, daily range): BP systolic 100–127; BP diastolic 63–81
--- NOTE | 2019-07-13 | Progress Note ---
DATE: 07/12/2019 SUBJECTIVE: The patient is in the ICU. The patient is having anxiety, able to be engaged during the evaluation and answers the questions. The patient felt better last night. She is communicated via writing. MENTAL STATUS EXAMINATION: The patient is alert and oriented x4. Mood is anxious. Affect is flat. Congruent with mood. Thought process is linear and goal oriented. Thought content, no suicidal or homicidal ideation. ASSESSMENT: 1. Anxiety disorder. 2. sleep disorder. PLAN: 1. We will continue the Remeron. 2. Provide the patient with reality orientation and supportive therapy. Caden Ferreira M.D. DR: SCOT JOB#: [id number] CC: HIRAM
[2019-07-13] MEDS: D5 1/2NS 1,000 ML IV SCH ×3 (05:10→16:41)
[2019-07-13 05:18] LABS: BASOPHILS % (AUTO) 0.4 % (0.0-2.0); EOSINOPHILS % (AUTO) 1.2 % (0.0-3.0); HEMATOCRIT 31.8 % (37.0-47.0); HEMOGLOBIN 10.3 G/DL (12.0-16.0); LYMPHOCYTES % (AUTO) 9.3 % (20.0-45.0); MEAN CORPUSCULAR VOLUME 95 FL (80-99); MONOCYTES % (AUTO) 6.7 % (1.0-10.0); NEUTROPHILS % (AUTO) 82.3 % (45.0-75.0); PLATELET COUNT 274 K/UL (150-450); RED BLOOD COUNT 3.36 M/UL (4.20-5.40); WHITE BLOOD COUNT 10.2 K/UL (4.8-10.8)
[2019-07-13] MEDS ORDERED: Acetaminophen 650mg/20.3ml NG PRN (06:00)
[2019-07-13] MEDS ORDERED: Acetaminophen 650 MG SUPP RECTAL PRN (06:00)
[2019-07-13] MEDS ORDERED: Metoclopramide 10mg/2ml Inj IVP PRN (06:00)
[2019-07-13 06:02] LABS: ANION GAP 7 mmol/L (5-15); BLOOD UREA NITROGEN 13 mg/dL (7-18); CALCIUM 8.2 MG/DL (8.5-10.1); CARBON DIOXIDE 25 MMOL/L (21-32); CHLORIDE 109 MMOL/L (98-107); CREATININE 1.5 MG/DL (0.55-1.30); POTASSIUM 3.8 MMOL/L (3.5-5.1); SODIUM 141 MMOL/L (136-145)
[2019-07-13] MEDS: NovoLOG Insulin Flexpen SUBQ SCH ×5 (06:03→20:45)
--- NOTE | 2019-07-13 07:28 | General Progress Note ---
Assessment/Plan Status: stable, progressing Assessment/Plan: Assessment - Angioedema, s/p emergency trach - abnormal LFT, ? Rhabdo related - improving - borderline CBD dilation on U/S - abnormal Lipase, ? significance - dysphagia, did not pass swallow - now with PEG - Thrombocytopenia - improved - HIV (+) - Drug abuse Recommendations - Continue tube feeds - GT care - Monitor labs - will consider CT imaging of abd once out of ICU - Pepcid Subjective ROS Limited/Unobtainable: No Allergies: Coded Allergies: No Known Allergies (Unverified , 06/29/19) Objective Last 24 Hour Vital Signs Date Time Temp Pulse Resp B/P (MAP) Pulse Ox O2 Delivery O2 Flow Rate FiO2 07/13/19 06:00 98.4 60 21 106/71 (83) 100 07/13/19 05:00 58 21 106/71 (83) 100 07/13/19 04:50 98.8 07/13/19 04:00 T-piece 28.0 07/13/19 04:00 98.0 70 31 111/71 (84) 100 07/13/19 04:00 60 07/13/19 04:00 8.0 30 07/13/19 03:00 62 23 103/70 (81) 100 07/13/19 02:00 69 29 109/67 (81) 100 07/13/19 01:08 100 T-Piece 8.0 30 07/13/19 01:00 59 21 109/66 (80) 100 07/13/19 00:00 65 25 100/65 (77) 100 07/13/19 00:00 8.0 30 07/13/19 00:00 63 07/13/19 00:00 T-piece 28.0 07/12/19 23:00 75 25 112/70 (84) 100 07/12/19 22:00 69 30 109/70 (83) 100 07/12/19 21:00 61 20 110/71 (84) 100 07/12/19 20:00 98.8 62 26 108/72 (84) 100 07/12/19 20:00 61 07/12/19 20:00 T-piece 28.0 07/12/19 20:00 8.0 30 07/12/19 19:59 76 22 100 T-Piece 8.0 30 07/12/19 19:59 100 T-Piece 8.0 30 07/12/19 19:00 63 22 122/76 (91) 100 07/12/19 18:00 63 25 116/74 (88) 100 07/12/19 17:00 70 23 125/77 (93) 100 07/12/19 16:00 Mechanical Ventilator 07/12/19 16:00 68 07/12/19 16:00 98.5 66 22 116/75 (89) 100 07/12/19 16:00 8.0 30 07/12/19 15:11 100 T-Piece 6.0 28 07/12/19 15:00 70 24 123/75 (91) 100 07/12/19 14:00 68 27 134/87 (103) 100 07/12/19 13:30 100 T-Piece 8.0 30 07/12/19 13:00 77 21 117/77 (90) 100 07/12/19 12:00 8.0 30 07/12/19 12:00 60 07/12/19 12:00 Mechanical Ventilator 07/12/19 12:00 98.9 76 26 132/68 (89) 100 07/12/19 11:00 59 20 129/76 (93) 100 07/12/19 10:00 70 20 126/76 (93) 100 07/12/19 09:00 97.8 67 23 123/75 (91) 100 07/12/19 08:03 73 23 100 T-Piece 8.0 30 07/12/19 08:03 100 T-Piece 8.0 30 07/12/19 08:00 70 21 135/81 (99) 100 07/12/19 08:00 Mechanical Ventilator 07/12/19 08:00 64 07/12/19 08:00 8.0 30 Intake and Output 07/12/19 07/13/19 19:00 07:00 Intake Total 1382 ml 1625 ml Output Total 520 ml 520 ml Balance 862 ml 1105 ml IV Total 1112 ml 1085 ml Tube Feeding 210 ml 480 ml Other 60 ml 60 ml Output Urine Total 520 ml 520 ml Laboratory Tests 07/13/19 04:19: White Blood Count 10.2, Red Blood Count 3.36L, Hemoglobin 10.3L, Hematocrit 31.8L, Mean Corpuscular Volume 95, Mean Corpuscular Hemoglobin 30.7, Mean Corpuscular Hemoglobin Concent 32.4, Red Cell Distribution Width 14.0, Platelet Count 274, Mean Platelet Volume 7.9, Neutrophils (%) (Auto) 82.3H, Lymphocytes ( %) (Auto) 9.3L, Monocytes (%) (Auto) 6.7, Eosinophils (%) (Auto) 1.2, Basophils (%) (Auto) 0.4, Sodium Level 141, Potassium Level 3.8, Chloride Level 109H, Carbon Dioxide Level 25, Anion Gap 7, Blood Urea Nitrogen 13, Creatinine 1.5H, Estimat Glomerular Filtration Rate 42.9, Glucose Level 94, Calcium Level 8.2L Height (Feet): 5 Height (Inches): 3.00 Weight (Pounds): 173 General Appearance: no apparent distress EENT: normal ENT inspection Neck: supple Cardiovascular: normal rate Respiratory/Chest: decreased breath sounds Abdomen: normal bowel sounds, non tender, soft Extremities: non-tender Bunny Rogers MD Jul 13, 2019 07:28
--- NOTE | 2019-07-13 08:24 | General Progress Note ---
Assessment/Plan Problem List: (1) Tracheostomy hemorrhage ICD Codes: J95.01 - Hemorrhage from tracheostomy stoma SNOMED: 72562615 (2) Tracheostomy complication ICD Codes: J95.00 - Unspecified tracheostomy complication SNOMED: 25861110 (3) Cocaine abuse ICD Codes: F14.10 - Cocaine abuse, uncomplicated SNOMED: 25596923 (4) Angioedema ICD Codes: T78.3XXA - Angioneurotic edema, initial encounter SNOMED: 94541174 Qualifiers: Qualified Codes: T78.3XXA - Angioneurotic edema, initial encounter (5) Hypertension ICD Codes: I10 - Essential (primary) hypertension SNOMED: 91127508 Qualifiers: Qualified Codes: I10 - Essential (primary) hypertension Status: stable, progressing Assessment/Plan: trach care resp care monitor for bleeding, monitor labs trend wbc pain rx wean sedation anxiolytics as needed gt feeds barium swallow Subjective ROS Limited/Unobtainable: No Constitutional: Reports: weakness HEENT: Reports: no symptoms Cardiovascular: Reports: no symptoms Respiratory: Reports: cough Gastrointestinal/Abdominal: Reports: no symptoms Genitourinary: Reports: no symptoms Neurologic/Psychiatric: Reports: no symptoms Endocrine: Reports: no symptoms Hematologic/Lymphatic: Reports: anemia Allergies: Coded Allergies: No Known Allergies (Unverified , 06/29/19) All Systems: reviewed and negative except above Subjective out of the icu. c/o generalized pain. wants to eat. tolerating gt feeds. Objective Last 24 Hour Vital Signs Date Time Temp Pulse Resp B/P (MAP) Pulse Ox O2 Delivery O2 Flow Rate FiO2 07/13/19 08:10 100 T-Piece 8.0 30 07/13/19 08:10 78 20 100 T-Piece 8.0 30 07/13/19 08:00 98.2 67 21 120/81 (94) 100 07/13/19 06:00 98.4 60 21 106/71 (83) 100 07/13/19 05:00 58 21 106/71 (83) 100 07/13/19 04:50 98.8 07/13/19 04:00 T-piece 28.0 07/13/19 04:00 98.0 70 31 111/71 (84) 100 07/13/19 04:00 60 07/13/19 04:00 8.0 30 07/13/19 03:00 62 23 103/70 (81) 100 07/13/19 02:00 69 29 109/67 (81) 100 07/13/19 01:08 100 T-Piece 8.0 30 07/13/19 01:00 59 21 109/66 (80) 100 07/13/19 00:00 65 25 100/65 (77) 100 07/13/19 00:00 8.0 30 07/13/19 00:00 63 07/13/19 00:00 T-piece 28.0 07/12/19 23:00 75 25 112/70 (84) 100 07/12/19 22:00 69 30 109/70 (83) 100 07/12/19 21:00 61 20 110/71 (84) 100 07/12/19 20:00 98.8 62 26 108/72 (84) 100 07/12/19 20:00 61 07/12/19 20:00 T-piece 28.0 07/12/19 20:00 8.0 30 07/12/19 19:59 76 22 100 T-Piece 8.0 30 07/12/19 19:59 100 T-Piece 8.0 30 07/12/19 19:00 63 22 122/76 (91) 100 07/12/19 18:00 63 25 116/74 (88) 100 07/12/19 17:00 70 23 125/77 (93) 100 07/12/19 16:00 Mechanical Ventilator 07/12/19 16:00 68 07/12/19 16:00 98.5 66 22 116/75 (89) 100 07/12/19 16:00 8.0 30 07/12/19 15:11 100 T-Piece 6.0 28 07/12/19 15:00 70 24 123/75 (91) 100 07/12/19 14:00 68 27 134/87 (103) 100 07/12/19 13:30 100 T-Piece 8.0 30 07/12/19 13:00 77 21 117/77 (90) 100 07/12/19 12:00 8.0 30 07/12/19 12:00 60 07/12/19 12:00 Mechanical Ventilator 07/12/19 12:00 98.9 76 26 132/68 (89) 100 8/30/19 11:00 59 20 129/76 (93) 100 07/12/19 10:00 70 20 126/76 (93) 100 07/12/19 09:00 97.8 67 23 123/75 (91) 100 Intake and Output 07/12/19 07/13/19 18:59 06:59 Intake Total 1452 ml 1655 ml Output Total 515 ml 560 ml Balance 937 ml 1095 ml IV Total 1212 ml 1085 ml Tube Feeding 180 ml 510 ml Other 60 ml 60 ml Output Urine Total 515 ml 560 ml Laboratory Tests 07/13/19 04:19: White Blood Count 10.2, Red Blood Count 3.36L, Hemoglobin 10.3L, Hematocrit 31.8L, Mean Corpuscular Volume 95, Mean Corpuscular Hemoglobin 30.7, Mean Corpuscular Hemoglobin Concent 32.4, Red Cell Distribution Width 14.0, Platelet Count 274, Mean Platelet Volume 7.9, Neutrophils (%) (Auto) 82.3H, Lymphocytes ( %) (Auto) 9.3L, Monocytes (%) (Auto) 6.7, Eosinophils (%) (Auto) 1.2, Basophils (%) (Auto) 0.4, Sodium Level 141, Potassium Level 3.8, Chloride Level 109H, Carbon Dioxide Level 25, Anion Gap 7, Blood Urea Nitrogen 13, Creatinine 1.5H, Estimat Glomerular Filtration Rate 42.9, Glucose Level 94, Calcium Level 8.2L Height (Feet): 5 Height (Inches): 3.00 Weight (Pounds): 173 Objective General Appearance: WD/WN, alert Neck: supple, other - trach midline. off the vent Cardiovascular: normal rate, regular rhythm Respiratory/Chest: chest wall non-tender, lungs clear, normal breath sounds, no respiratory distress Abdomen: normal bowel sounds, non tender, soft, no organomegaly Edema: no edema noted Arm (L), no edema noted Arm (R), no edema noted Leg (L), no edema noted Leg (R), no edema noted Pedal (L), no edema noted Pedal (R), no edema noted Generalized Danis Markham MD Jul 13, 2019 08:24
[2019-07-13] MEDS: Solu-MEDROL 40mg Inj IVP SCH (08:52)
[2019-07-13] MEDS: Bactrim Susp 20ml NG SCH ×2 (08:52→20:42)
[2019-07-13] MEDS: DiphenhydrAMINE 50mg/ml Inj IVP PRN ×2 (08:52→17:26)
[2019-07-13] MEDS: Magnesium Oxide 400mg tab NG SCH ×3 (08:53→17:15)
--- NOTE | 2019-07-13 08:54 | Nephrology Progress Note ---
Assessment/Plan Problem List: (1) Cocaine abuse (2) Angioedema (3) Hypertension (4) Tracheostomy hemorrhage (5) JUANITA (acute kidney injury) Plan CBC, BMP today and tomorrow Abx per ID Contact isolation. Continue to monitor off ventilator with suction and cool air humidifier w/ RT suction Will continue to monitor renal function and respond accordingly . Use Peg for continued feeding, per income tax preparer orders. Subjective Constitutional: Reports: no symptoms HEENT: Reports: no symptoms Genitourinary: Reports: no symptoms Neurologic/Psychiatric: Reports: no symptoms Subjective No new events. Pt remains stable. Objective Objective Last 24 Hour Vital Signs Date Time Temp Pulse Resp B/P (MAP) Pulse Ox O2 Delivery O2 Flow Rate FiO2 07/13/19 08:10 100 T-Piece 8.0 30 07/13/19 08:10 78 20 100 T-Piece 8.0 30 07/13/19 08:00 98.2 67 21 120/81 (94) 100 07/13/19 06:00 98.4 60 21 106/71 (83) 100 07/13/19 05:00 58 21 106/71 (83) 100 07/13/19 04:50 98.8 07/13/19 04:00 T-piece 28.0 07/13/19 04:00 98.0 70 31 111/71 (84) 100 07/13/19 04:00 60 07/13/19 04:00 8.0 30 07/13/19 03:00 62 23 103/70 (81) 100 07/13/19 02:00 69 29 109/67 (81) 100 07/13/19 01:08 100 T-Piece 8.0 30 07/13/19 01:00 59 21 109/66 (80) 100 07/13/19 00:00 65 25 100/65 (77) 100 07/13/19 00:00 8.0 30 07/13/19 00:00 63 07/13/19 00:00 T-piece 28.0 07/12/19 23:00 75 25 112/70 (84) 100 07/12/19 22:00 69 30 109/70 (83) 100 07/12/19 21:00 61 20 110/71 (84) 100 07/12/19 20:00 98.8 62 26 108/72 (84) 100 07/12/19 20:00 61 07/12/19 20:00 T-piece 28.0 07/12/19 20:00 8.0 30 07/12/19 19:59 76 22 100 T-Piece 8.0 30 07/12/19 19:59 100 T-Piece 8.0 30 07/12/19 19:00 63 22 122/76 (91) 100 07/12/19 18:00 63 25 116/74 (88) 100 07/12/19 17:00 70 23 125/77 (93) 100 07/12/19 16:00 Mechanical Ventilator 07/12/19 16:00 68 07/12/19 16:00 98.5 66 22 116/75 (89) 100 07/12/19 16:00 8.0 30 07/12/19 15:11 100 T-Piece 6.0 28 07/12/19 15:00 70 24 123/75 (91) 100 07/12/19 14:00 68 27 134/87 (103) 100 07/12/19 13:30 100 T-Piece 8.0 30 07/12/19 13:00 77 21 117/77 (90) 100 07/12/19 12:00 8.0 30 07/12/19 12:00 60 07/12/19 12:00 Mechanical Ventilator 07/12/19 12:00 98.9 76 26 132/68 (89) 100 07/12/19 11:00 59 20 129/76 (93) 100 07/12/19 10:00 70 20 126/76 (93) 100 07/12/19 09:00 97.8 67 23 123/75 (91) 100 Intake and Output 07/12/19 07/13/19 18:59 06:59 Intake Total 1452 ml 1655 ml Output Total 515 ml 560 ml Balance 937 ml 1095 ml IV Total 1212 ml 1085 ml Tube Feeding 180 ml 510 ml Other 60 ml 60 ml Output Urine Total 515 ml 560 ml Laboratory Tests 07/13/19 04:19: White Blood Count 10.2, Red Blood Count 3.36L, Hemoglobin 10.3L, Hematocrit 31.8L, Mean Corpuscular Volume 95, Mean Corpuscular Hemoglobin 30.7, Mean Corpuscular Hemoglobin Concent 32.4, Red Cell Distribution Width 14.0, Platelet Count 274, Mean Platelet Volume 7.9, Neutrophils (%) (Auto) 82.3H, Lymphocytes ( %) (Auto) 9.3L, Monocytes (%) (Auto) 6.7, Eosinophils (%) (Auto) 1.2, Basophils (%) (Auto) 0.4, Sodium Level 141, Potassium Level 3.8, Chloride Level 109H, Carbon Dioxide Level 25, Anion Gap 7, Blood Urea Nitrogen 13, Creatinine 1.5H, Estimat Glomerular Filtration Rate 42.9, Glucose Level 94, Calcium Level 8.2L Height (Feet): 5 Height (Inches): 3.00 Weight (Pounds): 173 General Appearance: WD/WN, no apparent distress, alert EENT: PERRL/EOMI Neck: normal alignment, supple Cardiovascular: normal peripheral pulses, normal rate, regular rhythm, no JVD Respiratory/Chest: lungs clear, normal breath sounds, no respiratory distress Abdomen: normal bowel sounds, non tender, soft, no organomegaly Extremities: normal range of motion, non-tender, normal inspection 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 Burnett appears calm at this time. She is observed sitting in bed, having just moved to new room. She is pleasant and in NAD. Presently, she is MRSA +, so contact isolation continues. She continues to be producing clear yellow urine noted in patel bag/tubing. 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 Jul 13, 2019 08:54
[2019-07-13] MEDS ORDERED: Thiamine HCl 100 MG in D5W 55 ML IVPB SCH (09:00)
[2019-07-13] MEDS: Thiamine HCl 100 MG in D5W 55 ML IVPB SCH (10:09)
--- NOTE | 2019-07-13 11:31 | Critical Care Progress Note ---
Assessment/Plan Assessment/Plan Angioedema Severe Hypotension Previous Hypertension Cocaine abuse s/p emergent trach Anemia secondary to blood loss acute respiratory failure leukocytosis, possible steroid related thrombocytopenia renal failure, acute on chronic toxic metabolic encephalopathy HIV+ s/p GT PLAN post op care heme, renal evaluation noted and reviewed; all noted ID follow up and recs vent support ---off and stable on trach care GT care nutrition as tolerated monitor for bleeding support as able nutrition GI following and discussed monitor hemodynamics medications/laboratory data/nursing notes reviewed in detail note reviewed and edited care discussed with RN and RT dc planning Critical Care - Subjective Interval Events: stable post GT ROS Limited/Unobtainable: Yes Condition: improving EKG Rhythm: Sinus Rhythm Residuals: minimal Tube Feeding Tolerated: yes I&O: Intake and Output 07/12/19 07/13/19 18:59 06:59 Intake Total 1452 ml 1655 ml Output Total 515 ml 560 ml Balance 937 ml 1095 ml IV Total 1212 ml 1085 ml Tube Feeding 180 ml 510 ml Other 60 ml 60 ml Output Urine Total 515 ml 560 ml Critical Care - Objective Last 24 Hour Vital Signs Date Time Temp Pulse Resp B/P (MAP) Pulse Ox O2 Delivery O2 Flow Rate FiO2 07/13/19 09:00 68 07/13/19 08:10 100 T-Piece 8.0 30 07/13/19 08:10 78 20 100 T-Piece 8.0 30 07/13/19 08:00 98.2 67 21 120/81 (94) 100 07/13/19 08:00 8.0 30 07/13/19 08:00 T-piece 28.0 07/13/19 06:00 98.4 60 21 106/71 (83) 100 07/13/19 05:00 58 21 106/71 (83) 100 07/13/19 04:50 98.8 07/13/19 04:00 T-piece 28.0 07/13/19 04:00 98.0 70 31 111/71 (84) 100 07/13/19 04:00 60 07/13/19 04:00 8.0 30 07/13/19 03:00 62 23 103/70 (81) 100 07/13/19 02:00 69 29 109/67 (81) 100 07/13/19 01:08 100 T-Piece 8.0 30 07/13/19 01:00 59 21 109/66 (80) 100 07/13/19 00:00 65 25 100/65 (77) 100 07/13/19 00:00 8.0 30 07/13/19 00:00 63 07/13/19 00:00 T-piece 28.0 07/12/19 23:00 75 25 112/70 (84) 100 07/12/19 22:00 69 30 109/70 (83) 100 07/12/19 21:00 61 20 110/71 (84) 100 07/12/19 20:00 98.8 62 26 108/72 (84) 100 07/12/19 20:00 61 07/12/19 20:00 T-piece 28.0 07/12/19 20:00 8.0 30 07/12/19 19:59 76 22 100 T-Piece 8.0 30 07/12/19 19:59 100 T-Piece 8.0 30 07/12/19 19:00 63 22 122/76 (91) 100 07/12/19 18:00 63 25 116/74 (88) 100 07/12/19 17:00 70 23 125/77 (93) 100 07/12/19 16:00 Mechanical Ventilator 07/12/19 16:00 68 07/12/19 16:00 98.5 66 22 116/75 (89) 100 07/12/19 16:00 8.0 30 07/12/19 15:11 100 T-Piece 6.0 28 07/12/19 15:00 70 24 123/75 (91) 100 07/12/19 14:00 68 27 134/87 (103) 100 07/12/19 13:30 100 T-Piece 8.0 30 07/12/19 13:00 77 21 117/77 (90) 100 07/12/19 12:00 8.0 30 07/12/19 12:00 60 07/12/19 12:00 Mechanical Ventilator 07/12/19 12:00 98.9 76 26 132/68 (89) 100 Labs: Laboratory Tests Test 07/13/19 04:19 White Blood Count 10.2 K/UL (4.8-10.8) Red Blood Count 3.36 M/UL (4.20-5.40) L Hemoglobin 10.3 G/DL (12.0-16.0) L Hematocrit 31.8 % (37.0-47.0) L Mean Corpuscular Volume 95 FL (80-99) Mean Corpuscular Hemoglobin 30.7 PG (27.0-31.0) Mean Corpuscular Hemoglobin Concent 32.4 G/DL (32.0-36.0) Red Cell Distribution Width 14.0 % (11.6-14.8) Platelet Count 274 K/UL (150-450) Mean Platelet Volume 7.9 FL (6.5-10.1) Neutrophils (%) (Auto) 82.3 % (45.0-75.0) H Lymphocytes (%) (Auto) 9.3 % (20.0-45.0) L Monocytes (%) (Auto) 6.7 % (1.0-10.0) Eosinophils (%) (Auto) 1.2 % (0.0-3.0) Basophils (%) (Auto) 0.4 % (0.0-2.0) Sodium Level 141 MMOL/L (136-145) Potassium Level 3.8 MMOL/L (3.5-5.1) Chloride Level 109 MMOL/L (98-107) H Carbon Dioxide Level 25 MMOL/L (21-32) Anion Gap 7 mmol/L (5-15) Blood Urea Nitrogen 13 mg/dL (7-18) Creatinine 1.5 MG/DL (0.55-1.30) H Estimat Glomerular Filtration Rate 42.9 mL/min (>60) Glucose Level 94 MG/DL (74-106) Calcium Level 8.2 MG/DL (8.5-10.1) L Objective: WDWN on trach and off vent reduced LOC reduced breath sounds bilaterally without rhonchi or wheeze [id number] without MRG NABS nontender no HSM no CCE nonfocal and alert and eyes open NABS nontender no distention; GT reviewed and edited Accucheck: 137 Radames Ray MD Jul 13, 2019 11:31
--- NOTE | 2019-07-13 11:59 | Hematology/Onc Progress Note ---
Assessment/Plan Assessment/Plan A/R # Anemia of chronic disease due to underlying chronic medical issues, multifactorial --> Anemia workup has been ordered and c/w acd --> No evidence of hemolysis is noted, peripheral smear has been reviewed. --> Hgb goal >8. Transfuse prn. --> Epogen indicated given hiv --> Medications have been reviewed --> low threshold for gi evaluation in case has occult + --> hgb trend 8.7--> 9-->10.9-->9.7->8.6-->9.6-->8.8-->10.3 --> b12, folic acid, tsh reviewed # Leukocytosis --> wbc trend 17-->15-->14k->16-->19.4-->15-->15.9-->13.6-->17.1-->12.1 --> steriods for angioedema # Thrombocytopenia - potential causes multifactorial, evaluate liver and viral etiologies to begin, also could be related to underlying medications patient has received. 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 Significance/etiology uncertain. This can be seen in chronic pancreatitis as well as ductectatic neoplasm--> once more stable get Ct with iv cont --> DIC panel has been reviewed, NEgative --> Peripheral smear ordered to evaluate for blasts /schistocytes and none noted --> abx and other meds have been reviewed --> ok for ppx if plt >50k w/ either heparin or lovenox --> Transfuse if Plt < 20k and fever, or if Plt < 10k without fever --> plt trend 200-->87-->60-->38k-> 50k-->91k-->110k-->138k-->184k->207k-->241k- ->221k -> [id number] ordered -- > is neg --> ID eval and care per id # Angioedeama --> ffp, steriods given --> s/p trach # Resp failure s/p trach --> to vent # Severe Hypotension --> is now off both pressors. # Hx of Hypertension # Cocaine abuse # ARF on HD now --> 07/02 --> now off hd # HIV++ --> as per id The timing of this note does not necessarily reflect the time of the patient was seen. GREATLY APPRECIATE CONSULTATION. Subjective Constitutional: Denies: no symptoms, chills, fever, malaise, weakness, other HEENT: Denies: no symptoms, eye pain, blurred vision, tearing, double vision, ear pain, ear discharge, nose pain, nose congestion, throat pain, throat swelling, mouth pain, mouth swelling, other Cardiovascular: Denies: no symptoms, chest pain, edema, irregular heart rate, lightheadedness, palpitations, syncope, other Gastrointestinal/Abdominal: Denies: no symptoms, abdomen distended, abdominal pain, black stools, tarry stools, blood in stool, constipated, diarrhea, difficulty swallowing, nausea, poor appetite, poor fluid intake, rectal bleeding , vomiting, other Genitourinary: Denies: no symptoms, burning, discharge, frequency, flank pain, hematuria, incontinence, pain, urgency, other Neurologic/Psychiatric: Denies: no symptoms, anxiety, depressed, emotional problems, headache, numbness, paresthesia, pre-existing deficit, seizure, tingling, tremors, weakness, other Endocrine: Denies: no symptoms, excessive sweating, flushing, intolerance to cold, intolerance to heat, increased hunger, increased thirst, increased urine, unexplained weight gain, unexplained weight loss, other Allergies: Coded Allergies: No Known Allergies (Unverified , 06/29/19) Subjective 07/02: remains in the icu, onpressors and epogen, hgb stable 07/03: in icu, no events, on vent, no fever or chills, denies pain or sob 07/04: s/p vent/trach, on fentanyl gtt, id made aware of HIV++ 07/05: sedated, trach, off abx, labs reviewed 07/07: weaning off pressors, no fevers or chills, is on pcp ppx 07/08: weaning off vent, no bleeding, htn better on clonidine coughing intermittently 07/10: getting 1 unit prnc, weaning vent when possible 07/11: off the vent, on ivf, no complaints. on abx, labs noted, wbc trending up 07/12: vs stable, no pain or discomfort, on abx, 07/13: remains on peg tube feeds, on t-piece as well 8l Objective Objective Current Medications Medications (Trade) Dose Ordered Sig/Dmitri Route PRN Reason Start Time Stop Time Status Last Admin Dose Admin Acetaminophen (Tylenol) 650 mg Q4H PRN NG Mild Pain/fever 07/13/19 06:00 08/09/19 05:59 Acetaminophen (Tylenol) 650 mg Q4H PRN RECTAL FEVER 07/13/19 06:00 07/29/19 05:59 Clonazepam (KlonoPIN) 1 mg Q6H PRN NG For Anxiety 07/13/19 06:00 07/16/19 05:59 Clonidine HCl (Catapres TTS-1) 1 patch QWEEK TDERMAL 07/18/19 15:00 08/03/19 14:59 Dextrose (Dextrose 50%) 25 ml Q30M PRN IV Hypoglycemia 07/13/19 06:30 07/30/19 14:59 Dextrose (Dextrose 50%) 50 ml Q30M PRN IV Hypoglycemia 07/13/19 06:30 07/30/19 14:59 Dextrose/Sodium Chloride 1,000 ml @ 100 mls/hr Q10H IV 07/13/19 06:15 08/10/19 12:44 Diphenhydramine HCl (Benadryl) 25 mg Q6H PRN IVP Muscle Spasm 07/13/19 06:00 07/29/19 05:59 07/13/19 08:52 Epoetin Eric (Epoetin Eric(ESRD on dialysis)) 8,000 unit MON-MON-MON SUBQ 07/15/19 21:00 07/31/19 20:59 Famotidine (Pepcid I.v.) 20 mg Q12HR IVP 07/13/19 09:00 07/30/19 20:59 07/13/19 08:52 Hydralazine HCl (Apresoline) 10 mg Q2H PRN IV For High Blood Pressure 07/13/19 07:15 08/01/19 21:14 Hydromorphone HCl (Dilaudid) 2 mg Q3H PRN IVP SEVERE BREAKTHROUGH PAIN 07/13/19 07:45 07/13/19 13:44 07/13/19 08:54 Insulin Aspart (NovoLOG) BEFORE MEALS AND HS SUBQ 07/13/19 06:30 07/30/19 16:29 Magnesium Oxide (Mag-Ox 400mg) 400 mg THREE TIMES A DAY NG 07/13/19 09:00 08/06/19 12:59 07/13/19 08:53 Methylprednisolone Sodium Succinate (Solu-MEDROL) 40 mg DAILY IVP 07/13/19 09:00 07/29/19 13:59 07/13/19 08:52 Metoclopramide HCl (Reglan) 10 mg Q6H PRN IVP Nausea & Vomiting 07/13/19 06:00 07/29/19 05:59 Mirtazapine (Remeron) 7.5 mg BEDTIME ORAL 07/13/19 21:00 08/11/19 00:00 Ondansetron HCl (Zofran) 4 mg Q6H PRN IVP Nausea & Vomiting 07/13/19 06:00 07/29/19 05:59 Thiamine HCl 100 mg/Dextrose 56 ml @ 112 mls/hr DAILY IVPB 07/13/19 09:00 08/12/19 08:59 07/13/19 10:09 Trimethoprim/ Sulfamethoxazole (Bactrim-DS) 20 ml EVERY 12 HOURS NG 07/13/19 09:00 07/18/19 11:34 07/13/19 08:52 Last 24 Hour Vital Signs Date Time Temp Pulse Resp B/P (MAP) Pulse Ox O2 Delivery O2 Flow Rate FiO2 07/13/19 09:00 68 07/13/19 08:10 100 T-Piece 8.0 30 07/13/19 08:10 78 20 100 T-Piece 8.0 30 07/13/19 08:00 98.2 67 21 120/81 (94) 100 07/13/19 08:00 8.0 30 07/13/19 08:00 T-piece 28.0 07/13/19 06:00 98.4 60 21 106/71 (83) 100 07/13/19 05:00 58 21 106/71 (83) 100 07/13/19 04:50 98.8 07/13/19 04:00 T-piece 28.0 07/13/19 04:00 98.0 70 31 111/71 (84) 100 07/13/19 04:00 60 07/13/19 04:00 8.0 30 07/13/19 03:00 62 23 103/70 (81) 100 07/13/19 02:00 69 29 109/67 (81) 100 07/13/19 01:08 100 T-Piece 8.0 30 07/13/19 01:00 59 21 109/66 (80) 100 07/13/19 00:00 65 25 100/65 (77) 100 07/13/19 00:00 8.0 30 07/13/19 00:00 63 07/13/19 00:00 T-piece 28.0 07/12/19 23:00 75 25 112/70 (84) 100 07/12/19 22:00 69 30 109/70 (83) 100 07/12/19 21:00 61 20 110/71 (84) 100 07/12/19 20:00 98.8 62 26 108/72 (84) 100 07/12/19 20:00 61 07/12/19 20:00 T-piece 28.0 07/12/19 20:00 8.0 30 07/12/19 19:59 76 22 100 T-Piece 8.0 30 07/12/19 19:59 100 T-Piece 8.0 30 07/12/19 19:00 63 22 122/76 (91) 100 07/12/19 18:00 63 25 116/74 (88) 100 07/12/19 17:00 70 23 125/77 (93) 100 07/12/19 16:00 Mechanical Ventilator 07/12/19 16:00 68 07/12/19 16:00 98.5 66 22 116/75 (89) 100 07/12/19 16:00 8.0 30 07/12/19 15:11 100 T-Piece 6.0 28 07/12/19 15:00 70 24 123/75 (91) 100 07/12/19 14:00 68 27 134/87 (103) 100 07/12/19 13:30 100 T-Piece 8.0 30 07/12/19 13:00 77 21 117/77 (90) 100 07/12/19 12:00 8.0 30 07/12/19 12:00 60 07/12/19 12:00 Mechanical Ventilator 07/12/19 12:00 98.9 76 26 132/68 (89) 100 07/12/19 11:00 59 20 129/76 (93) 100 07/12/19 10:00 70 20 126/76 (93) 100 07/12/19 09:00 97.8 67 23 123/75 (91) 100 07/12/19 08:03 73 23 100 T-Piece 8.0 30 07/12/19 08:03 100 T-Piece 8.0 30 07/12/19 08:00 70 21 135/81 (99) 100 07/12/19 08:00 Mechanical Ventilator 07/12/19 08:00 64 07/12/19 08:00 8.0 30 07/12/19 07:00 66 25 130/84 (99) 100 07/12/19 06:00 67 29 132/81 (98) 100 07/12/19 05:00 61 25 129/81 (97) 100 07/12/19 04:00 97.5 66 20 124/74 (91) 100 07/12/19 04:00 Mechanical Ventilator 07/12/19 04:00 8.0 30 07/12/19 04:00 66 07/12/19 03:00 66 19 131/81 (98) 100 07/12/19 02:15 98.5 07/12/19 02:00 67 24 139/85 (103) 100 07/12/19 01:40 100 T-Piece 8.0 30 07/12/19 01:00 75 23 154/93 (113) 99 07/12/19 00:00 Mechanical Ventilator 07/12/19 00:00 98.5 74 19 142/92 (109) 100 07/11/19 23:00 75 24 148/88 (108) 99 07/11/19 22:00 71 16 128/76 (93) 100 07/11/19 21:00 67 22 143/89 (107) 100 07/11/19 20:00 8.0 30 07/11/19 20:00 98.5 69 28 137/90 (106) 100 07/11/19 20:00 Mechanical Ventilator 07/11/19 20:00 69 07/11/19 19:10 70 18 100 T-Piece 8.0 30 07/11/19 19:10 100 T-Piece 8.0 30 07/11/19 19:00 70 22 149/87 (107) 100 07/11/19 18:00 74 26 144/87 (106) 100 07/11/19 17:00 71 18 149/86 (107) 100 07/11/19 16:00 Mechanical Ventilator 07/11/19 16:00 98.3 75 21 144/87 (106) 100 07/11/19 16:00 8.0 30 07/11/19 16:00 72 07/11/19 15:34 151/93 07/11/19 15:00 88 21 151/93 (112) 100 07/11/19 14:00 72 29 143/92 (109) 100 07/11/19 13:14 100 T-Piece 8.0 30 07/11/19 13:00 76 16 137/87 (104) 99 07/11/19 12:07 81 23 30 07/11/19 12:00 98.2 85 17 157/95 (115) 100 07/11/19 12:00 Mechanical Ventilator 07/11/19 12:00 8.0 30 07/11/19 12:00 76 Intake and Output 07/12/19 07/13/19 18:59 06:59 Intake Total 1452 ml 1655 ml Output Total 515 ml 560 ml Balance 937 ml 1095 ml IV Total 1212 ml 1085 ml Tube Feeding 180 ml 510 ml Other 60 ml 60 ml Output Urine Total 515 ml 560 ml Labs Test 07/10/19 13:45 07/10/19 15:35 07/10/19 18:25 07/11/19 03:30 Prothrombin Time 10.6 SEC (9.30-11.50) Prothromb Time International Ratio 1.0 (0.9-1.1) Activated Partial Thromboplast Time 27 SEC (23-33) Arterial Blood pH 7.416 (7.350-7.450) Arterial Blood Partial Pressure CO2 35.1 mmHg (35.0-45.0) Arterial Blood Partial Pressure O2 89.8 mmHg (75.0-100.0) Arterial Blood HCO3 22.1 mmol/L (22.0-26.0) Arterial Blood Oxygen Saturation 96.2 % (95-100) Arterial Blood Base Excess -2.1 (-2-2) Maxim Test Positive Random Vancomycin Level 13.1 ug/mL White Blood Count 17.1 K/UL (4.8-10.8) Red Blood Count 3.08 M/UL (4.20-5.40) Hemoglobin 9.6 G/DL (12.0-16.0) Hematocrit 29.1 % (37.0-47.0) Mean Corpuscular Volume 94 FL (80-99) Mean Corpuscular Hemoglobin 31.1 PG (27.0-31.0) Mean Corpuscular Hemoglobin Concent 32.9 G/DL (32.0-36.0) Red Cell Distribution Width 14.8 % (11.6-14.8) Platelet Count 241 K/UL (150-450) Mean Platelet Volume 7.1 FL (6.5-10.1) Neutrophils (%) (Auto) % (45.0-75.0) Lymphocytes (%) (Auto) % (20.0-45.0) Monocytes (%) (Auto) % (1.0-10.0) Eosinophils (%) (Auto) % (0.0-3.0) Basophils (%) (Auto) % (0.0-2.0) Differential Total Cells Counted 100 Neutrophils % (Manual) 86 % (45-75) Lymphocytes % (Manual) 4 % (20-45) Monocytes % (Manual) 8 % (1-10) Eosinophils % (Manual) 2 % (0-3) Basophils % (Manual) 0 % (0-2) Band Neutrophils 0 % (0-8) Platelet Estimate Adequate Platelet Morphology Normal Anisocytosis 1+ Sodium Level 143 MMOL/L (136-145) Potassium Level 4.1 MMOL/L (3.5-5.1) Chloride Level 109 MMOL/L (98-107) Carbon Dioxide Level 26 MMOL/L (21-32) Anion Gap 8 mmol/L (5-15) Blood Urea Nitrogen 18 mg/dL (7-18) Creatinine 1.3 MG/DL (0.55-1.30) Estimat Glomerular Filtration Rate 50.7 mL/min (>60) Glucose Level 76 MG/DL (74-106) Calcium Level 8.7 MG/DL (8.5-10.1) Test 07/12/19 04:33 07/13/19 04:19 White Blood Count 12.1 K/UL (4.8-10.8) 10.2 K/UL (4.8-10.8) Red Blood Count 2.90 M/UL (4.20-5.40) 3.36 M/UL (4.20-5.40) Hemoglobin 8.8 G/DL (12.0-16.0) 10.3 G/DL (12.0-16.0) Hematocrit 27.3 % (37.0-47.0) 31.8 % (37.0-47.0) Mean Corpuscular Volume 94 FL (80-99) 95 FL (80-99) Mean Corpuscular Hemoglobin 30.4 PG (27.0-31.0) 30.7 PG (27.0-31.0) Mean Corpuscular Hemoglobin Concent 32.4 G/DL (32.0-36.0) 32.4 G/DL (32.0-36.0) Red Cell Distribution Width 14.1 % (11.6-14.8) 14.0 % (11.6-14.8) Platelet Count 221 K/UL (150-450) 274 K/UL (150-450) Mean Platelet Volume 7.2 FL (6.5-10.1) 7.9 FL (6.5-10.1) Neutrophils (%) (Auto) % (45.0-75.0) 82.3 % (45.0-75.0) Lymphocytes (%) (Auto) % (20.0-45.0) 9.3 % (20.0-45.0) Monocytes (%) (Auto) % (1.0-10.0) 6.7 % (1.0-10.0) Eosinophils (%) (Auto) % (0.0-3.0) 1.2 % (0.0-3.0) Basophils (%) (Auto) % (0.0-2.0) 0.4 % (0.0-2.0) Sodium Level 141 MMOL/L (136-145) 141 MMOL/L (136-145) Potassium Level 3.6 MMOL/L (3.5-5.1) 3.8 MMOL/L (3.5-5.1) Chloride Level 109 MMOL/L (98-107) 109 MMOL/L (98-107) Carbon Dioxide Level 26 MMOL/L (21-32) 25 MMOL/L (21-32) Anion Gap 6 mmol/L (5-15) 7 mmol/L (5-15) Blood Urea Nitrogen 13 mg/dL (7-18) 13 mg/dL (7-18) Creatinine 1.4 MG/DL (0.55-1.30) 1.5 MG/DL (0.55-1.30) Estimat Glomerular Filtration Rate 46.5 mL/min (>60) 42.9 mL/min (>60) Glucose Level 98 MG/DL (74-106) 94 MG/DL (74-106) Calcium Level 8.6 MG/DL (8.5-10.1) 8.2 MG/DL (8.5-10.1) Height (Feet): 5 Height (Inches): 3.00 Weight (Pounds): 173 Objective Physical Exam: Vitals: reviewed General Appearance: NAD HEENT: normocephalic, atraumatic ++ trach 9L Neck: non-tender, normal alignment Respiratory/Chest: normal breath sounds bilaterally Cardiovascular/Chest: normal peripheral pulses, normal rate Abdomen: normal bowel sounds, soft, nontender Extremities: normal range of motion Jordan Nguyen MD Jul 13, 2019 11:59
--- NOTE | 2019-07-13 14:43 | Cardiac Electrophysiology PN ---
Assessment/Plan Assessment/Plan 1. Angioedema, s/p emergency tracheostomy Off the vent . 2. Dysphagia, S/P PEG 3. Hypertension. On Clonidine patch weekly 4. Cocaine abuse 5. ARF. Last HD and no further. 6. Anemia 7. 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 Objective Last 24 Hour Vital Signs Date Time Temp Pulse Resp B/P (MAP) Pulse Ox O2 Delivery O2 Flow Rate FiO2 07/13/19 13:02 100 T-Piece 8.0 30 07/13/19 12:00 59 07/13/19 12:00 8.0 30 07/13/19 12:00 T-piece 28.0 07/13/19 12:00 97.9 71 21 110/71 (84) 95 07/13/19 09:00 68 07/13/19 08:10 100 T-Piece 8.0 30 07/13/19 08:10 78 20 100 T-Piece 8.0 30 07/13/19 08:00 98.2 67 21 120/81 (94) 100 07/13/19 08:00 8.0 30 07/13/19 08:00 T-piece 28.0 07/13/19 06:00 98.4 60 21 106/71 (83) 100 07/13/19 05:00 58 21 106/71 (83) 100 07/13/19 04:50 98.8 07/13/19 04:00 T-piece 28.0 07/13/19 04:00 98.0 70 31 111/71 (84) 100 07/13/19 04:00 60 07/13/19 04:00 8.0 30 07/13/19 03:00 62 23 103/70 (81) 100 07/13/19 02:00 69 29 109/67 (81) 100 07/13/19 01:08 100 T-Piece 8.0 30 07/13/19 01:00 59 21 109/66 (80) 100 07/13/19 00:00 65 25 100/65 (77) 100 07/13/19 00:00 8.0 30 07/13/19 00:00 63 07/13/19 00:00 T-piece 28.0 07/12/19 23:00 75 25 112/70 (84) 100 07/12/19 22:00 69 30 109/70 (83) 100 07/12/19 21:00 61 20 110/71 (84) 100 07/12/19 20:00 98.8 62 26 108/72 (84) 100 07/12/19 20:00 61 07/12/19 20:00 T-piece 28.0 07/12/19 20:00 8.0 30 07/12/19 19:59 76 22 100 T-Piece 8.0 30 07/12/19 19:59 100 T-Piece 8.0 30 07/12/19 19:00 63 22 122/76 (91) 100 07/12/19 18:00 63 25 116/74 (88) 100 07/12/19 17:00 70 23 125/77 (93) 100 07/12/19 16:00 Mechanical Ventilator 07/12/19 16:00 68 07/12/19 16:00 98.5 66 22 116/75 (89) 100 07/12/19 16:00 8.0 30 07/12/19 15:11 100 T-Piece 6.0 28 07/12/19 15:00 70 24 123/75 (91) 100 Intake and Output 07/12/19 07/13/19 18:59 06:59 Intake Total 1452 ml 1655 ml Output Total 515 ml 560 ml Balance 937 ml 1095 ml IV Total 1212 ml 1085 ml Tube Feeding 180 ml 510 ml Other 60 ml 60 ml Output Urine Total 515 ml 560 ml Laboratory Tests Test 07/13/19 04:19 White Blood Count 10.2 K/UL (4.8-10.8) Red Blood Count 3.36 M/UL (4.20-5.40) L Hemoglobin 10.3 G/DL (12.0-16.0) L Hematocrit 31.8 % (37.0-47.0) L Mean Corpuscular Volume 95 FL (80-99) Mean Corpuscular Hemoglobin 30.7 PG (27.0-31.0) Mean Corpuscular Hemoglobin Concent 32.4 G/DL (32.0-36.0) Red Cell Distribution Width 14.0 % (11.6-14.8) Platelet Count 274 K/UL (150-450) Mean Platelet Volume 7.9 FL (6.5-10.1) Neutrophils (%) (Auto) 82.3 % (45.0-75.0) H Lymphocytes (%) (Auto) 9.3 % (20.0-45.0) L Monocytes (%) (Auto) 6.7 % (1.0-10.0) Eosinophils (%) (Auto) 1.2 % (0.0-3.0) Basophils (%) (Auto) 0.4 % (0.0-2.0) Sodium Level 141 MMOL/L (136-145) Potassium Level 3.8 MMOL/L (3.5-5.1) Chloride Level 109 MMOL/L (98-107) H Carbon Dioxide Level 25 MMOL/L (21-32) Anion Gap 7 mmol/L (5-15) Blood Urea Nitrogen 13 mg/dL (7-18) Creatinine 1.5 MG/DL (0.55-1.30) H Estimat Glomerular Filtration Rate 42.9 mL/min (>60) Glucose Level 94 MG/DL (74-106) Calcium Level 8.2 MG/DL (8.5-10.1) L Objective HEENT: Tracheostomy in place LUNGS: Coarse rhonchi CVS: RRR ABDOMEN: Obese. PEG in place EXT: No edema. Right femoral triple lumen Catheter and Right arm PICC line in place Giles Rodarte MD Jul 13, 2019 14:43
--- NOTE | 2019-07-13 18:00 | Surgery Progress Note ---
Surgery Progress Note Subjective Symptoms: improved, tolerating diet, voiding well, passing flatus Objective Last 24 Hour Vital Signs Date Time Temp Pulse Resp B/P (MAP) Pulse Ox O2 Delivery O2 Flow Rate FiO2 07/13/19 16:00 98.1 61 21 111/63 (79) 96 07/13/19 16:00 T-piece 28.0 07/13/19 16:00 8.0 28 07/13/19 16:00 60 07/13/19 13:02 100 T-Piece 8.0 30 07/13/19 12:00 59 07/13/19 12:00 8.0 30 07/13/19 12:00 T-piece 28.0 07/13/19 12:00 97.9 71 21 110/71 (84) 95 07/13/19 09:00 68 07/13/19 08:10 100 T-Piece 8.0 30 07/13/19 08:10 78 20 100 T-Piece 8.0 30 07/13/19 08:00 98.2 67 21 120/81 (94) 100 07/13/19 08:00 8.0 30 07/13/19 08:00 T-piece 28.0 07/13/19 06:00 98.4 60 21 106/71 (83) 100 07/13/19 05:00 58 21 106/71 (83) 100 07/13/19 04:50 98.8 07/13/19 04:00 T-piece 28.0 07/13/19 04:00 98.0 70 31 111/71 (84) 100 07/13/19 04:00 60 07/13/19 04:00 8.0 30 07/13/19 03:00 62 23 103/70 (81) 100 07/13/19 02:00 69 29 109/67 (81) 100 07/13/19 01:08 100 T-Piece 8.0 30 07/13/19 01:00 59 21 109/66 (80) 100 07/13/19 00:00 65 25 100/65 (77) 100 07/13/19 00:00 8.0 30 07/13/19 00:00 63 07/13/19 00:00 T-piece 28.0 07/12/19 23:00 75 25 112/70 (84) 100 07/12/19 22:00 69 30 109/70 (83) 100 07/12/19 21:00 61 20 110/71 (84) 100 07/12/19 20:00 98.8 62 26 108/72 (84) 100 07/12/19 20:00 61 07/12/19 20:00 T-piece 28.0 07/12/19 20:00 8.0 30 07/12/19 19:59 76 22 100 T-Piece 8.0 30 07/12/19 19:59 100 T-Piece 8.0 30 07/12/19 19:00 63 22 122/76 (91) 100 I&O Intake and Output 07/12/19 07/13/19 19:00 07:00 Intake Total 1382 ml 1625 ml Output Total 520 ml 520 ml Balance 862 ml 1105 ml IV Total 1112 ml 1085 ml Tube Feeding 210 ml 480 ml Other 60 ml 60 ml Output Urine Total 520 ml 520 ml Dressing: dry Wound: clean Cardiovascular: RSR Respiratory: clear Abdomen: soft, non-tender, present bowel sounds, other, non-distended Extremities: no edema, no cyanosis Laboratory Tests Test 07/13/19 04:19 White Blood Count 10.2 K/UL (4.8-10.8) Red Blood Count 3.36 M/UL (4.20-5.40) L Hemoglobin 10.3 G/DL (12.0-16.0) L Hematocrit 31.8 % (37.0-47.0) L Mean Corpuscular Volume 95 FL (80-99) Mean Corpuscular Hemoglobin 30.7 PG (27.0-31.0) Mean Corpuscular Hemoglobin Concent 32.4 G/DL (32.0-36.0) Red Cell Distribution Width 14.0 % (11.6-14.8) Platelet Count 274 K/UL (150-450) Mean Platelet Volume 7.9 FL (6.5-10.1) Neutrophils (%) (Auto) 82.3 % (45.0-75.0) H Lymphocytes (%) (Auto) 9.3 % (20.0-45.0) L Monocytes (%) (Auto) 6.7 % (1.0-10.0) Eosinophils (%) (Auto) 1.2 % (0.0-3.0) Basophils (%) (Auto) 0.4 % (0.0-2.0) Sodium Level 141 MMOL/L (136-145) Potassium Level 3.8 MMOL/L (3.5-5.1) Chloride Level 109 MMOL/L (98-107) H Carbon Dioxide Level 25 MMOL/L (21-32) Anion Gap 7 mmol/L (5-15) Blood Urea Nitrogen 13 mg/dL (7-18) Creatinine 1.5 MG/DL (0.55-1.30) H Estimat Glomerular Filtration Rate 42.9 mL/min (>60) Glucose Level 94 MG/DL (74-106) Calcium Level 8.2 MG/DL (8.5-10.1) L Plan Problems: (1) Angioedema Assessment & Plan: airway trach as per reports trach stable currently sutures in place dressings changed HD line in place and noted off vent will follow with recs thank you (2) Tracheostomy hemorrhage Assessment & Plan: stable dressings dry will monitor doing well may need revision given mucus leak (3) Tracheostomy complication Assessment & Plan: if continues to have leak of mucus with cough and possible infection of trach site may need revision currently improved less mucus 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
[2019-07-14] VITALS: BP 104/70
[2019-07-14] MEDS: DiphenhydrAMINE 50mg/ml Inj IVP PRN (01:33)
[2019-07-14] MEDS: D5 1/2NS 1,000 ML IV SCH ×3 (03:25→22:45)
[2019-07-14 04:00] VITALS: BP 112/64
[2019-07-14 05:46] LABS: BASOPHILS % (AUTO) 0.5 % (0.0-2.0); EOSINOPHILS % (AUTO) 1.4 % (0.0-3.0); HEMATOCRIT 29.1 % (37.0-47.0); HEMOGLOBIN 9.5 G/DL (12.0-16.0); LYMPHOCYTES % (AUTO) 6.9 % (20.0-45.0); MEAN CORPUSCULAR VOLUME 95 FL (80-99); MONOCYTES % (AUTO) 6.5 % (1.0-10.0); NEUTROPHILS % (AUTO) 84.7 % (45.0-75.0); PLATELET COUNT 243 K/UL (150-450); RED BLOOD COUNT 3.08 M/UL (4.20-5.40); RED CELL DISTRIBUTION WIDTH 14.1 % (11.6-14.8)
[2019-07-14 06:00] LABS: ANION GAP 8 mmol/L (5-15); BLOOD UREA NITROGEN 16 mg/dL (7-18); CALCIUM 8.3 MG/DL (8.5-10.1); CARBON DIOXIDE 24 MMOL/L (21-32); CHLORIDE 109 MMOL/L (98-107); CREATININE 1.6 MG/DL (0.55-1.30); SODIUM 141 MMOL/L (136-145)
[2019-07-14] MEDS: NovoLOG Insulin Flexpen SUBQ SCH ×4 (06:12→21:00)
--- NOTE | 2019-07-14 07:28 | General Progress Note ---
Assessment/Plan Status: stable, progressing Assessment/Plan: Assessment - Angioedema, s/p emergency trach - abnormal LFT, ? Rhabdo related - improving - borderline CBD dilation on U/S - abnormal Lipase, ? significance - dysphagia, did not pass swallow - now with PEG - Thrombocytopenia - improved - HIV (+) - Drug abuse Recommendations - Continue tube feeds - GT care - Monitor labs - will consider CT imaging of abd once out of ICU - Pepcid Subjective ROS Limited/Unobtainable: No Allergies: Coded Allergies: No Known Allergies (Unverified , 06/29/19) Objective Last 24 Hour Vital Signs Date Time Temp Pulse Resp B/P (MAP) Pulse Ox O2 Delivery O2 Flow Rate FiO2 07/14/19 06:34 97 T-Piece 8.0 30 07/14/19 06:34 62 18 97 T-Piece 8.0 30 07/14/19 04:00 97.6 56 22 112/64 (80) 97 07/14/19 04:00 8.0 28 07/14/19 04:00 T-piece 28.0 07/14/19 03:59 54 07/14/19 01:02 98 T-Piece 8.0 30 07/14/19 00:00 T-piece 28.0 07/14/19 00:00 8.0 28 07/14/19 00:00 97.6 51 16 104/70 (81) 99 07/13/19 23:48 58 07/13/19 21:14 98.3 07/13/19 20:00 8.0 28 07/13/19 20:00 96.8 64 18 127/78 (94) 99 07/13/19 20:00 T-piece 28.0 07/13/19 19:30 94 T-Piece 8.0 30 07/13/19 19:30 61 18 95 T-Piece 8.0 30 07/13/19 19:20 63 07/13/19 16:00 98.1 61 21 111/63 (79) 96 07/13/19 16:00 T-piece 28.0 07/13/19 16:00 8.0 28 07/13/19 16:00 60 07/13/19 13:02 100 T-Piece 8.0 30 07/13/19 12:00 59 07/13/19 12:00 8.0 30 07/13/19 12:00 T-piece 28.0 07/13/19 12:00 97.9 71 21 110/71 (84) 95 07/13/19 09:00 68 07/13/19 08:10 100 T-Piece 8.0 30 07/13/19 08:10 78 20 100 T-Piece 8.0 30 07/13/19 08:00 98.2 67 21 120/81 (94) 100 07/13/19 08:00 8.0 30 07/13/19 08:00 T-piece 28.0 Intake and Output 07/13/19 07/14/19 19:00 07:00 Intake Total 1002 ml 1750 ml Output Total 900 ml 1100 ml Balance 102 ml 650 ml Intake Free Water 150 ml 100 ml IV Total 312 ml 1155 ml Tube Feeding 540 ml 495 ml Output Urine Total 900 ml 1100 ml Laboratory Tests 07/14/19 03:48: White Blood Count 8.0, Red Blood Count 3.08L, Hemoglobin 9.5L, Hematocrit 29.1L , Mean Corpuscular Volume 95, Mean Corpuscular Hemoglobin 30.8, Mean Corpuscular Hemoglobin Concent 32.5, Red Cell Distribution Width 14.1, Platelet Count 243, Mean Platelet Volume 7.3, Neutrophils (%) (Auto) 84.7H, Lymphocytes ( %) (Auto) 6.9L, Monocytes (%) (Auto) 6.5, Eosinophils (%) (Auto) 1.4, Basophils (%) (Auto) 0.5, Sodium Level 141, Potassium Level 4.0, Chloride Level 109H, Carbon Dioxide Level 24, Anion Gap 8, Blood Urea Nitrogen 16, Creatinine 1.6H, Estimat Glomerular Filtration Rate 39.9, Glucose Level 89, Calcium Level 8.3L Height (Feet): 5 Height (Inches): 3.00 Weight (Pounds): 173 General Appearance: no apparent distress EENT: normal ENT inspection Neck: normal alignment Cardiovascular: normal rate Respiratory/Chest: decreased breath sounds Abdomen: normal bowel sounds, non tender, soft Extremities: non-tender Bunny Rogers MD Jul 14, 2019 07:28
[2019-07-14 08:00] VITALS: BP 130/74
--- NOTE | 2019-07-14 09:01 | Critical Care Progress Note ---
Assessment/Plan Assessment/Plan Angioedema Severe Hypotension Previous Hypertension Cocaine abuse s/p emergent trach Anemia secondary to blood loss acute respiratory failure leukocytosis, possible steroid related thrombocytopenia renal failure, acute on chronic toxic metabolic encephalopathy HIV+ s/p GT PLAN post op care heme, renal evaluation noted and reviewed; all noted all noted vent support ---off and stable on trach care GT care nutrition as tolerated monitor for bleeding support as able nutrition GI following and discussed monitor hemodynamics medications/laboratory data/nursing notes reviewed in detail note reviewed and edited care discussed with RN and RT dc planning to snf placed Critical Care - Subjective Interval Events: comfortable no distress on trach collar Condition: stable EKG Rhythm: Sinus Rhythm Residuals: minimal Tube Feeding Tolerated: yes I&O: Intake and Output 07/13/19 07/14/19 19:00 07:00 Intake Total 1002 ml 1750 ml Output Total 900 ml 1100 ml Balance 102 ml 650 ml Intake Free Water 150 ml 100 ml IV Total 312 ml 1155 ml Tube Feeding 540 ml 495 ml Output Urine Total 900 ml 1100 ml Critical Care - Objective Last 24 Hour Vital Signs Date Time Temp Pulse Resp B/P (MAP) Pulse Ox O2 Delivery O2 Flow Rate FiO2 07/14/19 08:53 59 07/14/19 06:34 97 T-Piece 8.0 30 07/14/19 06:34 62 18 97 T-Piece 8.0 30 07/14/19 04:00 97.6 56 22 112/64 (80) 97 07/14/19 04:00 8.0 28 07/14/19 04:00 T-piece 28.0 07/14/19 03:59 54 07/14/19 01:02 98 T-Piece 8.0 30 07/14/19 00:00 T-piece 28.0 07/14/19 00:00 8.0 28 07/14/19 00:00 97.6 51 16 104/70 (81) 99 07/13/19 23:48 58 07/13/19 21:14 98.3 07/13/19 20:00 8.0 28 07/13/19 20:00 96.8 64 18 127/78 (94) 99 07/13/19 20:00 T-piece 28.0 07/13/19 19:30 94 T-Piece 8.0 30 07/13/19 19:30 61 18 95 T-Piece 8.0 30 07/13/19 19:20 63 07/13/19 16:00 98.1 61 21 111/63 (79) 96 07/13/19 16:00 T-piece 28.0 07/13/19 16:00 8.0 28 07/13/19 16:00 60 07/13/19 13:02 100 T-Piece 8.0 30 07/13/19 12:00 59 07/13/19 12:00 8.0 30 07/13/19 12:00 T-piece 28.0 07/13/19 12:00 97.9 71 21 110/71 (84) 95 Labs: Labs Test 07/12/19 04:33 07/13/19 04:19 07/14/19 03:48 White Blood Count 12.1 K/UL (4.8-10.8) 10.2 K/UL (4.8-10.8) 8.0 K/UL (4.8-10.8) Red Blood Count 2.90 M/UL (4.20-5.40) 3.36 M/UL (4.20-5.40) 3.08 M/UL (4.20-5.40) Hemoglobin 8.8 G/DL (12.0-16.0) 10.3 G/DL (12.0-16.0) 9.5 G/DL (12.0-16.0) Hematocrit 27.3 % (37.0-47.0) 31.8 % (37.0-47.0) 29.1 % (37.0-47.0) Mean Corpuscular Volume 94 FL (80-99) 95 FL (80-99) 95 FL (80-99) Mean Corpuscular Hemoglobin 30.4 PG (27.0-31.0) 30.7 PG (27.0-31.0) 30.8 PG (27.0-31.0) Mean Corpuscular Hemoglobin Concent 32.4 G/DL (32.0-36.0) 32.4 G/DL (32.0-36.0) 32.5 G/DL (32.0-36.0) Red Cell Distribution Width 14.1 % (11.6-14.8) 14.0 % (11.6-14.8) 14.1 % (11.6-14.8) Platelet Count 221 K/UL (150-450) 274 K/UL (150-450) 243 K/UL (150-450) Mean Platelet Volume 7.2 FL (6.5-10.1) 7.9 FL (6.5-10.1) 7.3 FL (6.5-10.1) Neutrophils (%) (Auto) % (45.0-75.0) 82.3 % (45.0-75.0) 84.7 % (45.0-75.0) Lymphocytes (%) (Auto) % (20.0-45.0) 9.3 % (20.0-45.0) 6.9 % (20.0-45.0) Monocytes (%) (Auto) % (1.0-10.0) 6.7 % (1.0-10.0) 6.5 % (1.0-10.0) Eosinophils (%) (Auto) % (0.0-3.0) 1.2 % (0.0-3.0) 1.4 % (0.0-3.0) Basophils (%) (Auto) % (0.0-2.0) 0.4 % (0.0-2.0) 0.5 % (0.0-2.0) Sodium Level 141 MMOL/L (136-145) 141 MMOL/L (136-145) 141 MMOL/L (136-145) Potassium Level 3.6 MMOL/L (3.5-5.1) 3.8 MMOL/L (3.5-5.1) 4.0 MMOL/L (3.5-5.1) Chloride Level 109 MMOL/L (98-107) 109 MMOL/L (98-107) 109 MMOL/L (98-107) Carbon Dioxide Level 26 MMOL/L (21-32) 25 MMOL/L (21-32) 24 MMOL/L (21-32) Anion Gap 6 mmol/L (5-15) 7 mmol/L (5-15) 8 mmol/L (5-15) Blood Urea Nitrogen 13 mg/dL (7-18) 13 mg/dL (7-18) 16 mg/dL (7-18) Creatinine 1.4 MG/DL (0.55-1.30) 1.5 MG/DL (0.55-1.30) 1.6 MG/DL (0.55-1.30) Estimat Glomerular Filtration Rate 46.5 mL/min (>60) 42.9 mL/min (>60) 39.9 mL/min (>60) Glucose Level 98 MG/DL (74-106) 94 MG/DL (74-106) 89 MG/DL (74-106) Calcium Level 8.6 MG/DL (8.5-10.1) 8.2 MG/DL (8.5-10.1) 8.3 MG/DL (8.5-10.1) Objective: WDWN on trach and off vent reduced LOC reduced breath sounds bilaterally without rhonchi or wheeze [id number] without MRG NABS nontender no HSM no CCE nonfocal and alert and eyes open NABS nontender no distention; GT reviewed and edited Accucheck: 111 Radames Ray MD Jul 14, 2019 09:01
[2019-07-14] MEDS: Solu-MEDROL 40mg Inj IVP SCH (09:15)
[2019-07-14] MEDS: Bactrim Susp 20ml NG SCH ×2 (09:15→21:16)
[2019-07-14] MEDS: Magnesium Oxide 400mg tab NG SCH ×3 (09:16→17:55)
[2019-07-14] MEDS: Thiamine HCl 100 MG in D5W 55 ML IVPB SCH (10:01)
--- NOTE | 2019-07-14 10:11 | Nephrology Progress Note ---
Assessment/Plan Problem List: (1) Cocaine abuse (2) Angioedema (3) Hypertension (4) Tracheostomy hemorrhage (5) JUANITA (acute kidney injury) Plan CBC, BMP today and tomorrow Abx per ID Contact isolation. Continue to monitor off ventilator. Possible speech evaluation on Monday. Will continue to monitor renal function and respond accordingly . Use Peg for continued feeding, per gill tender orders. Subjective Constitutional: Reports: no symptoms HEENT: Reports: no symptoms Genitourinary: Reports: no symptoms Neurologic/Psychiatric: Reports: no symptoms Subjective No new events. Pt remains stable. Objective Objective Last 24 Hour Vital Signs Date Time Temp Pulse Resp B/P (MAP) Pulse Ox O2 Delivery O2 Flow Rate FiO2 07/14/19 08:53 59 07/14/19 08:00 97.2 69 20 130/74 (92) 99 07/14/19 06:34 97 T-Piece 8.0 30 07/14/19 06:34 62 18 97 T-Piece 8.0 30 07/14/19 04:00 97.6 56 22 112/64 (80) 97 07/14/19 04:00 8.0 28 07/14/19 04:00 T-piece 28.0 07/14/19 03:59 54 07/14/19 01:02 98 T-Piece 8.0 30 07/14/19 00:00 T-piece 28.0 07/14/19 00:00 8.0 28 07/14/19 00:00 97.6 51 16 104/70 (81) 99 07/13/19 23:48 58 07/13/19 21:14 98.3 07/13/19 20:00 8.0 28 07/13/19 20:00 96.8 64 18 127/78 (94) 99 07/13/19 20:00 T-piece 28.0 07/13/19 19:30 94 T-Piece 8.0 30 07/13/19 19:30 61 18 95 T-Piece 8.0 30 07/13/19 19:20 63 07/13/19 16:00 98.1 61 21 111/63 (79) 96 07/13/19 16:00 T-piece 28.0 07/13/19 16:00 8.0 28 07/13/19 16:00 60 07/13/19 13:02 100 T-Piece 8.0 30 07/13/19 12:00 59 07/13/19 12:00 8.0 30 07/13/19 12:00 T-piece 28.0 07/13/19 12:00 97.9 71 21 110/71 (84) 95 Intake and Output 07/13/19 07/14/19 19:00 07:00 Intake Total 1002 ml 1750 ml Output Total 900 ml 1100 ml Balance 102 ml 650 ml Intake Free Water 150 ml 100 ml IV Total 312 ml 1155 ml Tube Feeding 540 ml 495 ml Output Urine Total 900 ml 1100 ml Laboratory Tests 07/14/19 03:48: White Blood Count 8.0, Red Blood Count 3.08L, Hemoglobin 9.5L, Hematocrit 29.1L , Mean Corpuscular Volume 95, Mean Corpuscular Hemoglobin 30.8, Mean Corpuscular Hemoglobin Concent 32.5, Red Cell Distribution Width 14.1, Platelet Count 243, Mean Platelet Volume 7.3, Neutrophils (%) (Auto) 84.7H, Lymphocytes ( %) (Auto) 6.9L, Monocytes (%) (Auto) 6.5, Eosinophils (%) (Auto) 1.4, Basophils (%) (Auto) 0.5, Sodium Level 141, Potassium Level 4.0, Chloride Level 109H, Carbon Dioxide Level 24, Anion Gap 8, Blood Urea Nitrogen 16, Creatinine 1.6H, Estimat Glomerular Filtration Rate 39.9, Glucose Level 89, Calcium Level 8.3L Height (Feet): 5 Height (Inches): 3.00 Weight (Pounds): 173 General Appearance: WD/WN, no apparent distress, alert EENT: PERRL/EOMI Neck: normal alignment Cardiovascular: normal peripheral pulses, normal rate, regular rhythm, no JVD Respiratory/Chest: chest wall non-tender, lungs clear, normal breath sounds, no respiratory distress, no accessory muscle use Abdomen: normal bowel sounds, non tender, soft, no organomegaly, no mass Extremities: normal range of motion, non-tender, normal inspection Neurologic: drum saw operator II-XII grossly normal, no motor/sensory deficits, alert, oriented x 3, responsive Objective Ms. Burnett appears calm at this time. She is observed laying in bed, awake/alert/ NAD She was recently suctioned and thick secretions noted by RN Now: Clear trach/Clear lungs/no trach sounds noted She continues to be producing clear yellow urine (approx 600 mls noted in patel bag/tubing) Neuro: A&Ox4, ARTERIAL EMBALMER intact CVS: RRR Lungs:clear, trached/no bleeding or drainage noted to gauze under cuff HEENT: head atraumatic, PERRLA, nose/mouth pink-moist mucosa, tracheostomy clean /no drainage noted to gauze Abd: no ttp, BS +, peg placed and in use for feeding GI/: patel, BS+4Q Extremities: no edema, pop/pedal 2+ (sequentials in place and on) Skin: normal for ethnicity, no decub ulcers Sharee Alvarez N.P. Jul 14, 2019 10:11
[2019-07-14] MEDS ORDERED: D5 1/2NS 1000ml IV ONE (10:21)
--- NOTE | 2019-07-14 11:32 | General Progress Note ---
Assessment/Plan Problem List: (1) Tracheostomy hemorrhage ICD Codes: J95.01 - Hemorrhage from tracheostomy stoma SNOMED: 57233668 (2) Tracheostomy complication ICD Codes: J95.00 - Unspecified tracheostomy complication SNOMED: 25538253 (3) Cocaine abuse ICD Codes: F14.10 - Cocaine abuse, uncomplicated SNOMED: 99885183 (4) Angioedema ICD Codes: T78.3XXA - Angioneurotic edema, initial encounter SNOMED: 52191592 Qualifiers: Qualified Codes: T78.3XXA - Angioneurotic edema, initial encounter (5) Hypertension ICD Codes: I10 - Essential (primary) hypertension SNOMED: 38649629 Qualifiers: Qualified Codes: I10 - Essential (primary) hypertension Status: stable, progressing Assessment/Plan: trach care resp care suctioning as needed monitor for bleeding, monitor labs trend wbc pain rx wean sedation anxiolytics as needed gt feeds barium swallow Subjective ROS Limited/Unobtainable: No Constitutional: Reports: malaise, weakness HEENT: Reports: no symptoms Cardiovascular: Reports: no symptoms Respiratory: Reports: cough Gastrointestinal/Abdominal: Reports: difficulty swallowing Genitourinary: Reports: no symptoms Neurologic/Psychiatric: Reports: no symptoms Endocrine: Reports: no symptoms Hematologic/Lymphatic: Reports: anemia Allergies: Coded Allergies: No Known Allergies (Unverified , 06/29/19) All Systems: reviewed and negative except above Subjective resting. no new complaints. no fever or chills. no sob. tolerating gt feeds pain and anxiety better controlled. Objective Last 24 Hour Vital Signs Date Time Temp Pulse Resp B/P (MAP) Pulse Ox O2 Delivery O2 Flow Rate FiO2 07/14/19 09:00 T-piece 28.0 07/14/19 08:53 59 07/14/19 08:00 8.0 28 07/14/19 08:00 97.2 69 20 130/74 (92) 99 07/14/19 06:34 97 T-Piece 8.0 30 07/14/19 06:34 62 18 97 T-Piece 8.0 30 07/14/19 04:00 97.6 56 22 112/64 (80) 97 07/14/19 04:00 8.0 28 07/14/19 04:00 T-piece 28.0 07/14/19 03:59 54 07/14/19 01:02 98 T-Piece 8.0 30 07/14/19 00:00 T-piece 28.0 07/14/19 00:00 8.0 28 07/14/19 00:00 97.6 51 16 104/70 (81) 99 07/13/19 23:48 58 07/13/19 21:14 98.3 07/13/19 20:00 8.0 28 07/13/19 20:00 96.8 64 18 127/78 (94) 99 07/13/19 20:00 T-piece 28.0 07/13/19 19:30 94 T-Piece 8.0 30 07/13/19 19:30 61 18 95 T-Piece 8.0 30 07/13/19 19:20 63 07/13/19 16:00 98.1 61 21 111/63 (79) 96 07/13/19 16:00 T-piece 28.0 07/13/19 16:00 8.0 28 07/13/19 16:00 60 07/13/19 13:02 100 T-Piece 8.0 30 07/13/19 12:00 59 07/13/19 12:00 8.0 30 07/13/19 12:00 T-piece 28.0 07/13/19 12:00 97.9 71 21 110/71 (84) 95 Intake and Output 07/13/19 07/14/19 18:59 06:59 Intake Total 902 ml 1795 ml Output Total 900 ml 1100 ml Balance 2 ml 695 ml Intake Free Water 150 ml 100 ml IV Total 212 ml 1155 ml Tube Feeding 540 ml 540 ml Output Urine Total 900 ml 1100 ml Laboratory Tests 07/14/19 03:48: White Blood Count 8.0, Red Blood Count 3.08L, Hemoglobin 9.5L, Hematocrit 29.1L , Mean Corpuscular Volume 95, Mean Corpuscular Hemoglobin 30.8, Mean Corpuscular Hemoglobin Concent 32.5, Red Cell Distribution Width 14.1, Platelet Count 243, Mean Platelet Volume 7.3, Neutrophils (%) (Auto) 84.7H, Lymphocytes ( %) (Auto) 6.9L, Monocytes (%) (Auto) 6.5, Eosinophils (%) (Auto) 1.4, Basophils (%) (Auto) 0.5, Sodium Level 141, Potassium Level 4.0, Chloride Level 109H, Carbon Dioxide Level 24, Anion Gap 8, Blood Urea Nitrogen 16, Creatinine 1.6H, Estimat Glomerular Filtration Rate 39.9, Glucose Level 89, Calcium Level 8.3L Height (Feet): 5 Height (Inches): 3.00 Weight (Pounds): 173 Objective General Appearance: WD/WN, alert Neck: supple, other - trach midline. off the vent Cardiovascular: normal rate, regular rhythm Respiratory/Chest: chest wall non-tender, lungs clear, normal breath sounds, no respiratory distress Abdomen: normal bowel sounds, non tender, soft, no organomegaly Edema: no edema noted Arm (L), no edema noted Arm (R), no edema noted Leg (L), no edema noted Leg (R), no edema noted Pedal (L), no edema noted Pedal (R), no edema noted Generalized Danis Markham MD Jul 14, 2019 11:32
--- NOTE | 2019-07-14 11:46 | Surgery Progress Note ---
Surgery Progress Note Subjective Additional Comments Patient seen and examined bedside. No acute events. Seemingly comfortable. No complaints. Able to communicate but nonverbal given trach. Tolerating tube feeds. Wound site clean dry and intact. Labs noted. Exam stable. Objective Last 24 Hour Vital Signs Date Time Temp Pulse Resp B/P (MAP) Pulse Ox O2 Delivery O2 Flow Rate FiO2 07/14/19 09:00 T-piece 28.0 07/14/19 08:53 59 07/14/19 08:00 8.0 28 07/14/19 08:00 97.2 69 20 130/74 (92) 99 07/14/19 06:34 97 T-Piece 8.0 30 07/14/19 06:34 62 18 97 T-Piece 8.0 30 07/14/19 04:00 97.6 56 22 112/64 (80) 97 07/14/19 04:00 8.0 28 07/14/19 04:00 T-piece 28.0 07/14/19 03:59 54 07/14/19 01:02 98 T-Piece 8.0 30 07/14/19 00:00 T-piece 28.0 07/14/19 00:00 8.0 28 07/14/19 00:00 97.6 51 16 104/70 (81) 99 07/13/19 23:48 58 07/13/19 21:14 98.3 07/13/19 20:00 8.0 28 07/13/19 20:00 96.8 64 18 127/78 (94) 99 07/13/19 20:00 T-piece 28.0 07/13/19 19:30 94 T-Piece 8.0 30 07/13/19 19:30 61 18 95 T-Piece 8.0 30 07/13/19 19:20 63 07/13/19 16:00 98.1 61 21 111/63 (79) 96 07/13/19 16:00 T-piece 28.0 07/13/19 16:00 8.0 28 07/13/19 16:00 60 07/13/19 13:02 100 T-Piece 8.0 30 07/13/19 12:00 59 07/13/19 12:00 8.0 30 07/13/19 12:00 T-piece 28.0 07/13/19 12:00 97.9 71 21 110/71 (84) 95 I&O Intake and Output 07/13/19 07/14/19 18:59 06:59 Intake Total 902 ml 1795 ml Output Total 900 ml 1100 ml Balance 2 ml 695 ml Intake Free Water 150 ml 100 ml IV Total 212 ml 1155 ml Tube Feeding 540 ml 540 ml Output Urine Total 900 ml 1100 ml Dressing: dry Wound: clean Cardiovascular: RSR Respiratory: clear Abdomen: soft, non-tender, present bowel sounds Extremities: no tenderness, no cyanosis Laboratory Tests Test 07/14/19 03:48 White Blood Count 8.0 K/UL (4.8-10.8) Red Blood Count 3.08 M/UL (4.20-5.40) L Hemoglobin 9.5 G/DL (12.0-16.0) L Hematocrit 29.1 % (37.0-47.0) L Mean Corpuscular Volume 95 FL (80-99) Mean Corpuscular Hemoglobin 30.8 PG (27.0-31.0) Mean Corpuscular Hemoglobin Concent 32.5 G/DL (32.0-36.0) Red Cell Distribution Width 14.1 % (11.6-14.8) Platelet Count 243 K/UL (150-450) Mean Platelet Volume 7.3 FL (6.5-10.1) Neutrophils (%) (Auto) 84.7 % (45.0-75.0) H Lymphocytes (%) (Auto) 6.9 % (20.0-45.0) L Monocytes (%) (Auto) 6.5 % (1.0-10.0) Eosinophils (%) (Auto) 1.4 % (0.0-3.0) Basophils (%) (Auto) 0.5 % (0.0-2.0) Sodium Level 141 MMOL/L (136-145) Potassium Level 4.0 MMOL/L (3.5-5.1) Chloride Level 109 MMOL/L (98-107) H Carbon Dioxide Level 24 MMOL/L (21-32) Anion Gap 8 mmol/L (5-15) Blood Urea Nitrogen 16 mg/dL (7-18) Creatinine 1.6 MG/DL (0.55-1.30) H Estimat Glomerular Filtration Rate 39.9 mL/min (>60) Glucose Level 89 MG/DL (74-106) Calcium Level 8.3 MG/DL (8.5-10.1) L Plan Problems: (1) Angioedema Assessment & Plan: airway trach as per reports trach stable currently sutures in place dressings changed HD line in place and noted off vent will follow with recs thank you (2) Tracheostomy hemorrhage Assessment & Plan: stable dressings dry will monitor doing well may need revision given mucus leak (3) Tracheostomy complication Assessment & Plan: Much less leakage around trach site. Wound clean and dry now. No signs of active infection. Mucus decrease. Will unlikely need revision at this point. 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
[2019-07-14 12:00] VITALS: BP 104/65
--- NOTE | 2019-07-14 12:29 | Infectious Diseases Prog Note ---
Assessment/Plan Assessment/Plan A 1. leucocytosis improving 2. angioedema 3. respiratory failure s/p emergent tracheostomy 4. HIV, AIDS 5. renal failure improving 6. tracheostomy site infection P 1. Continue Bactrim, will try to decrease the dose soon 2. Will need to start ART soon Subjective ROS Limited/Unobtainable: Yes Constitutional: Denies: fever Allergies: Coded Allergies: No Known Allergies (Unverified , 06/29/19) Objective Vital Signs Last 24 Hour Vital Signs Date Time Temp Pulse Resp B/P (MAP) Pulse Ox O2 Delivery O2 Flow Rate FiO2 07/14/19 12:00 T-piece 28.0 07/14/19 12:00 8.0 28 07/14/19 09:00 T-piece 28.0 07/14/19 08:53 59 07/14/19 08:00 8.0 28 07/14/19 08:00 97.2 69 20 130/74 (92) 99 07/14/19 06:34 97 T-Piece 8.0 30 07/14/19 06:34 62 18 97 T-Piece 8.0 30 07/14/19 04:00 97.6 56 22 112/64 (80) 97 07/14/19 04:00 8.0 28 07/14/19 04:00 T-piece 28.0 07/14/19 03:59 54 07/14/19 01:02 98 T-Piece 8.0 30 07/14/19 00:00 T-piece 28.0 07/14/19 00:00 8.0 28 07/14/19 00:00 97.6 51 16 104/70 (81) 99 07/13/19 23:48 58 07/13/19 21:14 98.3 07/13/19 20:00 8.0 28 07/13/19 20:00 96.8 64 18 127/78 (94) 99 07/13/19 20:00 T-piece 28.0 07/13/19 19:30 94 T-Piece 8.0 30 07/13/19 19:30 61 18 95 T-Piece 8.0 30 07/13/19 19:20 63 07/13/19 16:00 98.1 61 21 111/63 (79) 96 07/13/19 16:00 T-piece 28.0 07/13/19 16:00 8.0 28 07/13/19 16:00 60 07/13/19 13:02 100 T-Piece 8.0 30 Height (Feet): 5 Height (Inches): 3.00 Weight (Pounds): 173 General Appearance: no acute distress HEENT: status post trach Respiratory/Chest: lungs clear, other - on T bar Cardiovascular: normal rate Abdomen: soft, non tender, other - GT in place Extremities: no edema Neurologic/Psychiatric: other - sleeping Laboratory Tests Test 07/14/19 03:48 White Blood Count 8.0 K/UL (4.8-10.8) Red Blood Count 3.08 M/UL (4.20-5.40) L Hemoglobin 9.5 G/DL (12.0-16.0) L Hematocrit 29.1 % (37.0-47.0) L Mean Corpuscular Volume 95 FL (80-99) Mean Corpuscular Hemoglobin 30.8 PG (27.0-31.0) Mean Corpuscular Hemoglobin Concent 32.5 G/DL (32.0-36.0) Red Cell Distribution Width 14.1 % (11.6-14.8) Platelet Count 243 K/UL (150-450) Mean Platelet Volume 7.3 FL (6.5-10.1) Neutrophils (%) (Auto) 84.7 % (45.0-75.0) H Lymphocytes (%) (Auto) 6.9 % (20.0-45.0) L Monocytes (%) (Auto) 6.5 % (1.0-10.0) Eosinophils (%) (Auto) 1.4 % (0.0-3.0) Basophils (%) (Auto) 0.5 % (0.0-2.0) Sodium Level 141 MMOL/L (136-145) Potassium Level 4.0 MMOL/L (3.5-5.1) Chloride Level 109 MMOL/L (98-107) H Carbon Dioxide Level 24 MMOL/L (21-32) Anion Gap 8 mmol/L (5-15) Blood Urea Nitrogen 16 mg/dL (7-18) Creatinine 1.6 MG/DL (0.55-1.30) H Estimat Glomerular Filtration Rate 39.9 mL/min (>60) Glucose Level 89 MG/DL (74-106) Calcium Level 8.3 MG/DL (8.5-10.1) L Current Medications Medications (Trade) Dose Ordered Sig/Dmitri Route PRN Reason Start Time Stop Time Status Last Admin Dose Admin Acetaminophen (Tylenol) 650 mg Q4H PRN NG Mild Pain/fever 07/13/19 06:00 08/09/19 05:59 07/13/19 20:44 Acetaminophen (Tylenol) 650 mg Q4H PRN RECTAL FEVER 07/13/19 06:00 07/29/19 05:59 Clonazepam (KlonoPIN) 1 mg Q6H PRN NG For Anxiety 07/13/19 06:00 07/16/19 05:59 07/13/19 20:42 Clonidine HCl (Catapres TTS-1) 1 patch QWEEK TDERMAL 07/18/19 15:00 08/03/19 14:59 Dextrose (Dextrose 50%) 25 ml Q30M PRN IV Hypoglycemia 07/13/19 06:30 07/30/19 14:59 Dextrose (Dextrose 50%) 50 ml Q30M PRN IV Hypoglycemia 07/13/19 06:30 07/30/19 14:59 Dextrose/Sodium Chloride 1,000 ml @ 100 mls/hr Q10H IV 07/13/19 06:15 08/10/19 12:44 07/14/19 03:25 Diphenhydramine HCl (Benadryl) 25 mg Q6H PRN IVP Muscle Spasm 07/13/19 06:00 07/29/19 05:59 07/14/19 01:33 Epoetin Eric (Epoetin Eric(ESRD on dialysis)) 8,000 unit MON-MON-MON SUBQ 07/15/19 21:00 07/31/19 20:59 Famotidine (Pepcid I.v.) 20 mg Q12HR IVP 07/13/19 09:00 07/30/19 20:59 07/14/19 09:16 Hydralazine HCl (Apresoline) 10 mg Q2H PRN IV For High Blood Pressure 07/13/19 07:15 08/01/19 21:14 Hydromorphone HCl (Dilaudid) 2 mg Q3H PRN IVP Severe Breakthru Pain (>7) 07/13/19 17:15 07/20/19 17:14 07/14/19 06:14 Insulin Aspart (NovoLOG) BEFORE MEALS AND HS SUBQ 07/13/19 06:30 07/30/19 16:29 07/14/19 11:28 Magnesium Oxide (Mag-Ox 400mg) 400 mg THREE TIMES A DAY NG 07/13/19 09:00 08/06/19 12:59 07/14/19 09:16 Methylprednisolone Sodium Succinate (Solu-MEDROL) 40 mg DAILY IVP 07/13/19 09:00 07/29/19 13:59 07/14/19 09:15 Metoclopramide HCl (Reglan) 10 mg Q6H PRN IVP Nausea & Vomiting 07/13/19 06:00 07/29/19 05:59 Mirtazapine (Remeron) 7.5 mg BEDTIME ORAL 07/13/19 21:00 08/11/19 00:00 07/13/19 20:41 Ondansetron HCl (Zofran) 4 mg Q6H PRN IVP Nausea & Vomiting 07/13/19 06:00 07/29/19 05:59 Thiamine HCl 100 mg/Dextrose 56 ml @ 112 mls/hr DAILY IVPB 07/13/19 09:00 08/12/19 08:59 07/14/19 10:01 Trimethoprim/ Sulfamethoxazole (Bactrim-DS) 20 ml EVERY 12 HOURS NG 07/13/19 09:00 07/18/19 11:34 07/14/19 09:15 Kwaku Garcia MD Jul 14, 2019 12:29
--- NOTE | 2019-07-14 15:52 | Cardiac Electrophysiology PN ---
Assessment/Plan Assessment/Plan 1. Angioedema, s/p emergency tracheostomy Off the vent . 2. Dysphagia, S/P PEG 3. Hypertension. On Clonidine patch weekly 4. Cocaine abuse 5. ARF. Last HD and no further. 6. Anemia 7. HIV positive, newly diagnosed. FU ID DW RN Subjective Subjective On T tube and tracheostomy out of ICU.In SR.Awaiting swallow eval. Wants to eat Objective Last 24 Hour Vital Signs Date Time Temp Pulse Resp B/P (MAP) Pulse Ox O2 Delivery O2 Flow Rate FiO2 07/14/19 14:04 97.2 07/14/19 12:59 96 T-Piece 6.0 28 07/14/19 12:00 62 07/14/19 12:00 97.9 68 19 104/65 (78) 98 07/14/19 12:00 T-piece 28.0 07/14/19 12:00 8.0 28 07/14/19 09:00 T-piece 28.0 07/14/19 08:53 59 07/14/19 08:00 8.0 28 07/14/19 08:00 97.2 69 20 130/74 (92) 99 07/14/19 06:34 97 T-Piece 8.0 30 07/14/19 06:34 62 18 97 T-Piece 8.0 30 07/14/19 04:00 97.6 56 22 112/64 (80) 97 07/14/19 04:00 8.0 28 07/14/19 04:00 T-piece 28.0 07/14/19 03:59 54 07/14/19 01:02 98 T-Piece 8.0 30 07/14/19 00:00 T-piece 28.0 07/14/19 00:00 8.0 28 07/14/19 00:00 97.6 51 16 104/70 (81) 99 07/13/19 23:48 58 07/13/19 21:14 98.3 07/13/19 20:00 8.0 28 07/13/19 20:00 96.8 64 18 127/78 (94) 99 07/13/19 20:00 T-piece 28.0 07/13/19 19:30 94 T-Piece 8.0 30 07/13/19 19:30 61 18 95 T-Piece 8.0 30 07/13/19 19:20 63 07/13/19 16:00 98.1 61 21 111/63 (79) 96 07/13/19 16:00 T-piece 28.0 07/13/19 16:00 8.0 28 07/13/19 16:00 60 Intake and Output 07/13/19 07/14/19 18:59 06:59 Intake Total 902 ml 1795 ml Output Total 900 ml 1100 ml Balance 2 ml 695 ml Intake Free Water 150 ml 100 ml IV Total 212 ml 1155 ml Tube Feeding 540 ml 540 ml Output Urine Total 900 ml 1100 ml Laboratory Tests Test 07/14/19 03:48 White Blood Count 8.0 K/UL (4.8-10.8) Red Blood Count 3.08 M/UL (4.20-5.40) L Hemoglobin 9.5 G/DL (12.0-16.0) L Hematocrit 29.1 % (37.0-47.0) L Mean Corpuscular Volume 95 FL (80-99) Mean Corpuscular Hemoglobin 30.8 PG (27.0-31.0) Mean Corpuscular Hemoglobin Concent 32.5 G/DL (32.0-36.0) Red Cell Distribution Width 14.1 % (11.6-14.8) Platelet Count 243 K/UL (150-450) Mean Platelet Volume 7.3 FL (6.5-10.1) Neutrophils (%) (Auto) 84.7 % (45.0-75.0) H Lymphocytes (%) (Auto) 6.9 % (20.0-45.0) L Monocytes (%) (Auto) 6.5 % (1.0-10.0) Eosinophils (%) (Auto) 1.4 % (0.0-3.0) Basophils (%) (Auto) 0.5 % (0.0-2.0) Sodium Level 141 MMOL/L (136-145) Potassium Level 4.0 MMOL/L (3.5-5.1) Chloride Level 109 MMOL/L (98-107) H Carbon Dioxide Level 24 MMOL/L (21-32) Anion Gap 8 mmol/L (5-15) Blood Urea Nitrogen 16 mg/dL (7-18) Creatinine 1.6 MG/DL (0.55-1.30) H Estimat Glomerular Filtration Rate 39.9 mL/min (>60) Glucose Level 89 MG/DL (74-106) Calcium Level 8.3 MG/DL (8.5-10.1) L Objective HEENT: Tracheostomy in place LUNGS: Coarse rhonchi CVS: RRR ABDOMEN: Obese. PEG in place EXT: No edema. Right arm PICC line in place Giles Rodarte MD Jul 14, 2019 15:52
[2019-07-14 15:53] VITALS: BP 132/74
[2019-07-14 20:00] VITALS: BP 138/87
[2019-07-15] VITALS: BP 127/77
[2019-07-15] MEDS: DiphenhydrAMINE 50mg/ml Inj IVP PRN ×3 (01:29→17:58)
[2019-07-15 04:00] VITALS: BP 122/77
[2019-07-15 05:21] LABS: BASOPHILS % (AUTO) 0.7 % (0.0-2.0); EOSINOPHILS % (AUTO) 1.2 % (0.0-3.0); HEMOGLOBIN 9.3 G/DL (12.0-16.0); LYMPHOCYTES % (AUTO) 11.5 % (20.0-45.0); MEAN CORPUSCULAR VOLUME 95 FL (80-99); MONOCYTES % (AUTO) 7.9 % (1.0-10.0); NEUTROPHILS % (AUTO) 78.7 % (45.0-75.0); PLATELET COUNT 227 K/UL (150-450); RED BLOOD COUNT 3.06 M/UL (4.20-5.40); RED CELL DISTRIBUTION WIDTH 14.1 % (11.6-14.8); WHITE BLOOD COUNT 8.6 K/UL (4.8-10.8)
[2019-07-15 05:57] LABS: ANION GAP 9 mmol/L (5-15); BLOOD UREA NITROGEN 17 mg/dL (7-18); CALCIUM 8.4 MG/DL (8.5-10.1); CARBON DIOXIDE 23 MMOL/L (21-32); CHLORIDE 112 MMOL/L (98-107); CREATININE 1.5 MG/DL (0.55-1.30); POTASSIUM 4.2 MMOL/L (3.5-5.1); SODIUM 144 MMOL/L (136-145)
[2019-07-15] MEDS: NovoLOG Insulin Flexpen SUBQ SCH ×4 (06:19→21:00)
--- NOTE | 2019-07-15 07:20 | General Progress Note ---
Assessment/Plan Problem List: (1) Tracheostomy hemorrhage ICD Codes: J95.01 - Hemorrhage from tracheostomy stoma SNOMED: 70829166 (2) Tracheostomy complication ICD Codes: J95.00 - Unspecified tracheostomy complication SNOMED: 41134791 (3) Cocaine abuse ICD Codes: F14.10 - Cocaine abuse, uncomplicated SNOMED: 45941798 (4) Angioedema ICD Codes: T78.3XXA - Angioneurotic edema, initial encounter SNOMED: 12775060 Qualifiers: Qualified Codes: T78.3XXA - Angioneurotic edema, initial encounter (5) Hypertension ICD Codes: I10 - Essential (primary) hypertension SNOMED: 56364124 Qualifiers: Qualified Codes: I10 - Essential (primary) hypertension Status: stable, progressing Assessment/Plan: trach care resp care suctioning as needed monitor for bleeding, monitor labs trend wbc pain rx wean sedation anxiolytics as needed gt feeds barium swallow Subjective ROS Limited/Unobtainable: No Constitutional: Reports: malaise, weakness HEENT: Reports: no symptoms Cardiovascular: Reports: no symptoms Respiratory: Reports: cough Gastrointestinal/Abdominal: Reports: difficulty swallowing Genitourinary: Reports: no symptoms Neurologic/Psychiatric: Reports: no symptoms Endocrine: Reports: no symptoms Hematologic/Lymphatic: Reports: anemia Allergies: Coded Allergies: No Known Allergies (Unverified , 06/29/19) All Systems: reviewed and negative except above Subjective no complaints. minimal cough. no fever or chills. tolerating feeds. Objective Last 24 Hour Vital Signs Date Time Temp Pulse Resp B/P (MAP) Pulse Ox O2 Delivery O2 Flow Rate FiO2 07/15/19 06:59 56 18 97 T-Piece 6.0 28 07/15/19 06:59 97 T-Piece 6.0 28 07/15/19 04:00 T-piece 28.0 07/15/19 04:00 97.5 54 20 122/77 (92) 98 07/15/19 04:00 8.0 28 07/15/19 03:54 55 07/15/19 03:42 98 T-Piece 6.0 28 07/15/19 00:00 97.0 57 20 127/77 (94) 100 07/15/19 00:00 T-piece 28.0 07/14/19 23:30 58 07/14/19 20:00 T-piece 28.0 07/14/19 20:00 98.1 60 24 138/87 (104) 100 07/14/19 20:00 8.0 28 07/14/19 19:37 67 07/14/19 19:35 68 18 98 T-Piece 6.0 28 07/14/19 19:35 98 T-Piece 6.0 28 07/14/19 16:54 67 07/14/19 16:00 T-piece 28.0 07/14/19 16:00 8.0 28 07/14/19 15:53 97.7 66 20 132/74 (93) 98 07/14/19 14:04 97.2 07/14/19 12:59 96 T-Piece 6.0 28 07/14/19 12:00 62 07/14/19 12:00 97.9 68 19 104/65 (78) 98 07/14/19 12:00 T-piece 28.0 07/14/19 12:00 8.0 28 07/14/19 09:00 T-piece 28.0 07/14/19 08:53 59 07/14/19 08:00 8.0 28 07/14/19 08:00 97.2 69 20 130/74 (92) 99 Intake and Output 07/14/19 07/15/19 19:00 07:00 Intake Total 2040 ml 1620 ml Output Total 1600 ml 1700 ml Balance 440 ml -80 ml Intake Free Water 300 ml 100 ml IV Total 1200 ml 1025 ml Tube Feeding 540 ml 495 ml Output Urine Total 1600 ml 1700 ml Laboratory Tests 07/15/19 03:35: White Blood Count 8.6, Red Blood Count 3.06L, Hemoglobin 9.3L, Hematocrit 29.0L , Mean Corpuscular Volume 95, Mean Corpuscular Hemoglobin 30.4, Mean Corpuscular Hemoglobin Concent 32.1, Red Cell Distribution Width 14.1, Platelet Count 227, Mean Platelet Volume 7.3, Neutrophils (%) (Auto) 78.7H, Lymphocytes ( %) (Auto) 11.5L, Monocytes (%) (Auto) 7.9, Eosinophils (%) (Auto) 1.2, Basophils (%) (Auto) 0.7, Sodium Level 144, Potassium Level 4.2, Chloride Level 112H, Carbon Dioxide Level 23, Anion Gap 9, Blood Urea Nitrogen 17, Creatinine 1.5H, Estimat Glomerular Filtration Rate 42.9, Glucose Level 95, Calcium Level 8.4L Height (Feet): 5 Height (Inches): 3.00 Weight (Pounds): 174 Objective General Appearance: WD/WN, alert Neck: supple, other - trach midline. off the vent Cardiovascular: normal rate, regular rhythm Respiratory/Chest: chest wall non-tender, lungs clear, normal breath sounds, no respiratory distress Abdomen: normal bowel sounds, non tender, soft, no organomegaly Edema: no edema noted Arm (L), no edema noted Arm (R), no edema noted Leg (L), no edema noted Leg (R), no edema noted Pedal (L), no edema noted Pedal (R), no edema noted Generalized Danis Markham MD Jul 15, 2019 07:20
[2019-07-15 08:00] VITALS: BP 120/90
[2019-07-15] MEDS: Solu-MEDROL 40mg Inj IVP SCH (08:31)
[2019-07-15] MEDS: Bactrim Susp 20ml NG SCH ×2 (08:31→21:12)
[2019-07-15] MEDS: Magnesium Oxide 400mg tab NG SCH ×3 (08:37→17:59)
--- NOTE | 2019-07-15 09:01 | Critical Care Progress Note ---
Assessment/Plan Assessment/Plan Angioedema Severe Hypotension Previous Hypertension Cocaine abuse s/p emergent trach Anemia secondary to blood loss acute respiratory failure leukocytosis, possible steroid related thrombocytopenia renal failure, acute on chronic toxic metabolic encephalopathy HIV+ s/p GT PLAN maintain care heme, renal evaluation noted and reviewed; all noted on trach care GT and feeds monitor for bleeding support as able nutrition GI following and discussed monitor hemodynamics medications/laboratory data/nursing notes reviewed in detail note reviewed and edited care discussed with RN and RT dc planning to snf placed Critical Care - Subjective Interval Events: seems stable no distress off vent tolerating feeds Condition: stable EKG Rhythm: Sinus Rhythm Residuals: minimal Tube Feeding Tolerated: yes I&O: Intake and Output 07/14/19 07/15/19 19:00 07:00 Intake Total 2040 ml 1620 ml Output Total 1600 ml 1700 ml Balance 440 ml -80 ml Intake Free Water 300 ml 100 ml IV Total 1200 ml 1025 ml Tube Feeding 540 ml 495 ml Output Urine Total 1600 ml 1700 ml Critical Care - Objective Last 24 Hour Vital Signs Date Time Temp Pulse Resp B/P (MAP) Pulse Ox O2 Delivery O2 Flow Rate FiO2 07/15/19 06:59 56 18 97 T-Piece 6.0 28 07/15/19 06:59 97 T-Piece 6.0 28 07/15/19 04:00 T-piece 28.0 07/15/19 04:00 97.5 54 20 122/77 (92) 98 07/15/19 04:00 8.0 28 07/15/19 03:54 55 07/15/19 03:42 98 T-Piece 6.0 28 07/15/19 00:00 97.0 57 20 127/77 (94) 100 07/15/19 00:00 T-piece 28.0 07/14/19 23:30 58 07/14/19 20:00 T-piece 28.0 07/14/19 20:00 98.1 60 24 138/87 (104) 100 07/14/19 20:00 8.0 28 07/14/19 19:37 67 07/14/19 19:35 68 18 98 T-Piece 6.0 28 07/14/19 19:35 98 T-Piece 6.0 28 07/14/19 16:54 67 07/14/19 16:00 T-piece 28.0 07/14/19 16:00 8.0 28 07/14/19 15:53 97.7 66 20 132/74 (93) 98 07/14/19 14:04 97.2 07/14/19 12:59 96 T-Piece 6.0 28 07/14/19 12:00 62 07/14/19 12:00 97.9 68 19 104/65 (78) 98 07/14/19 12:00 T-piece 28.0 07/14/19 12:00 8.0 28 Labs: Laboratory Tests Test 07/15/19 03:35 White Blood Count 8.6 K/UL (4.8-10.8) Red Blood Count 3.06 M/UL (4.20-5.40) L Hemoglobin 9.3 G/DL (12.0-16.0) L Hematocrit 29.0 % (37.0-47.0) L Mean Corpuscular Volume 95 FL (80-99) Mean Corpuscular Hemoglobin 30.4 PG (27.0-31.0) Mean Corpuscular Hemoglobin Concent 32.1 G/DL (32.0-36.0) Red Cell Distribution Width 14.1 % (11.6-14.8) Platelet Count 227 K/UL (150-450) Mean Platelet Volume 7.3 FL (6.5-10.1) Neutrophils (%) (Auto) 78.7 % (45.0-75.0) H Lymphocytes (%) (Auto) 11.5 % (20.0-45.0) L Monocytes (%) (Auto) 7.9 % (1.0-10.0) Eosinophils (%) (Auto) 1.2 % (0.0-3.0) Basophils (%) (Auto) 0.7 % (0.0-2.0) Sodium Level 144 MMOL/L (136-145) Potassium Level 4.2 MMOL/L (3.5-5.1) Chloride Level 112 MMOL/L (98-107) H Carbon Dioxide Level 23 MMOL/L (21-32) Anion Gap 9 mmol/L (5-15) Blood Urea Nitrogen 17 mg/dL (7-18) Creatinine 1.5 MG/DL (0.55-1.30) H Estimat Glomerular Filtration Rate 42.9 mL/min (>60) Glucose Level 95 MG/DL (74-106) Calcium Level 8.4 MG/DL (8.5-10.1) L Objective: WDWN on trach and off vent reduced LOC reduced breath sounds bilaterally without rhonchi or wheeze [id number] without MRG NABS nontender no HSM no CCE nonfocal and alert and eyes open NABS nontender no distention; GT reviewed and edited Accucheck: 119 Radames Ray MD Jul 15, 2019 09:01
[2019-07-15] MEDS: Thiamine HCl 100 MG in D5W 55 ML IVPB SCH (09:05)
[2019-07-15] MEDS: D5 1/2NS 1,000 ML IV SCH ×2 (09:05→18:15)
--- NOTE | 2019-07-15 10:54 | Infectious Diseases Prog Note ---
"Assessment/Plan Assessment/Plan antibiotics : bactrim A 1. leucocytosis resolved 2. angioedema 3. respiratory failure s/p emergent tracheostomy 4. HIV, cd4 96 5. renal failure improving 5. MRSA | proteus pneumonia s/p rx P 1. continue bactrim 2. will follow up cultures Subjective ROS Limited/Unobtainable: Yes Allergies: Coded Allergies: No Known Allergies (Unverified , 06/29/19) Objective Vital Signs Last 24 Hour Vital Signs Date Time Temp Pulse Resp B/P (MAP) Pulse Ox O2 Delivery O2 Flow Rate FiO2 07/15/19 09:09 98.1 07/15/19 08:00 T-piece 28.0 07/15/19 08:00 98.1 67 20 120/90 (100) 98 07/15/19 08:00 8.0 28 07/15/19 08:00 59 07/15/19 06:59 56 18 97 T-Piece 6.0 28 07/15/19 06:59 97 T-Piece 6.0 28 07/15/19 04:00 T-piece 28.0 07/15/19 04:00 97.5 54 20 122/77 (92) 98 07/15/19 04:00 8.0 28 07/15/19 03:54 55 07/15/19 03:42 98 T-Piece 6.0 28 07/15/19 00:00 97.0 57 20 127/77 (94) 100 07/15/19 00:00 T-piece 28.0 07/14/19 23:30 58 07/14/19 20:00 T-piece 28.0 07/14/19 20:00 98.1 60 24 138/87 (104) 100 07/14/19 20:00 8.0 28 07/14/19 19:37 67 07/14/19 19:35 68 18 98 T-Piece 6.0 28 07/14/19 19:35 98 T-Piece 6.0 28 07/14/19 16:54 67 07/14/19 16:00 T-piece 28.0 07/14/19 16:00 8.0 28 07/14/19 15:53 97.7 66 20 132/74 (93) 98 07/14/19 12:59 96 T-Piece 6.0 07/14/19 12:00 62 07/14/19 12:00 97.9 68 19 104/65 (78) 98 07/14/19 12:00 T-piece 28.0 07/14/19 12:00 8.0 28 Height (Feet): 5 Height (Inches): 3.00 Weight (Pounds): 174 HEENT: status post trach Respiratory/Chest: lungs clear Cardiovascular: normal rate, regular rhythm, no gallop/murmur Abdomen: soft, non tender, other - GT Extremities: no edema Laboratory Tests Test 07/15/19 03:35 White Blood Count 8.6 K/UL (4.8-10.8) Red Blood Count 3.06 M/UL (4.20-5.40) L Hemoglobin 9.3 G/DL (12.0-16.0) L Hematocrit 29.0 % (37.0-47.0) L Mean Corpuscular Volume 95 FL (80-99) Mean Corpuscular Hemoglobin 30.4 PG (27.0-31.0) Mean Corpuscular Hemoglobin Concent 32.1 G/DL (32.0-36.0) Red Cell Distribution Width 14.1 % (11.6-14.8) Platelet Count 227 K/UL (150-450) Mean Platelet Volume 7.3 FL (6.5-10.1) Neutrophils (%) (Auto) 78.7 % (45.0-75.0) H Lymphocytes (%) (Auto) 11.5 % (20.0-45.0) L Monocytes (%) (Auto) 7.9 % (1.0-10.0) Eosinophils (%) (Auto) 1.2 % (0.0-3.0) Basophils (%) (Auto) 0.7 % (0.0-2.0) Sodium Level 144 MMOL/L (136-145) Potassium Level 4.2 MMOL/L (3.5-5.1) Chloride Level 112 MMOL/L (98-107) H Carbon Dioxide Level 23 MMOL/L (21-32) Anion Gap 9 mmol/L (5-15) Blood Urea Nitrogen 17 mg/dL (7-18) Creatinine 1.5 MG/DL (0.55-1.30) H Estimat Glomerular Filtration Rate 42.9 mL/min (>60) Glucose Level 95 MG/DL (74-106) Calcium Level 8.4 MG/DL (8.5-10.1) L Current Medications Medications (Trade) Dose Ordered Sig/Dmitri Route PRN Reason Start Time Stop Time Status Last Admin Dose Admin Acetaminophen (Tylenol) 650 mg Q4H PRN NG Mild Pain/fever 07/13/19 06:00 08/09/19 05:59 07/13/19 20:44 Acetaminophen (Tylenol) 650 mg Q4H PRN RECTAL FEVER 07/13/19 06:00 07/29/19 05:59 Clonazepam (KlonoPIN) 1 mg Q6H PRN NG For Anxiety 07/13/19 06:00 07/16/19 05:59 07/13/19 20:42 Clonidine HCl (Catapres TTS-1) 1 patch QWEEK TDERMAL 07/18/19 15:00 08/03/19 14:59 Dextrose (Dextrose 50%) 25 ml Q30M PRN IV Hypoglycemia 07/13/19 06:30 07/30/19 14:59 Dextrose (Dextrose 50%) 50 ml Q30M PRN IV Hypoglycemia 07/13/19 06:30 07/30/19 14:59 Dextrose/Sodium Chloride 1,000 ml @ 100 mls/hr Q10H IV 07/13/19 06:15 08/10/19 12:44 07/15/19 09:05 Diphenhydramine HCl (Benadryl) 25 mg Q6H PRN IVP Muscle Spasm 07/13/19 06:00 07/29/19 05:59 07/15/19 09:04 Epoetin Eric (Epoetin Eric(ESRD on dialysis)) 8,000 unit MON-MON-MON SUBQ 07/15/19 21:00 07/31/19 20:59 Famotidine (Pepcid I.v.) 20 mg Q12HR IVP 07/13/19 09:00 07/30/19 20:59 07/15/19 08:31 Hydralazine HCl (Apresoline) 10 mg Q2H PRN IV For High Blood Pressure 07/13/19 07:15 08/01/19 21:14 Hydromorphone HCl (Dilaudid) 2 mg Q3H PRN IVP Severe Breakthru Pain (>7) 07/13/19 17:15 07/20/19 17:14 07/15/19 08:39 Insulin Aspart (NovoLOG) BEFORE MEALS AND HS SUBQ 07/13/19 06:30 07/30/19 16:29 07/15/19 06:19 Magnesium Oxide (Mag-Ox 400mg) 400 mg THREE TIMES A DAY NG 07/13/19 09:00 08/06/19 12:59 07/15/19 08:37 Methylprednisolone Sodium Succinate (Solu-MEDROL) 40 mg DAILY IVP 07/13/19 09:00 07/29/19 13:59 07/15/19 08:31 Metoclopramide HCl (Reglan) 10 mg Q6H PRN IVP Nausea & Vomiting 07/13/19 06:00 07/29/19 05:59 Mirtazapine (Remeron) 7.5 mg BEDTIME ORAL 07/13/19 21:00 08/11/19 00:00 07/14/19 21:16 Ondansetron HCl (Zofran) 4 mg Q6H PRN IVP Nausea & Vomiting 07/13/19 06:00 07/29/19 05:59 Thiamine HCl 100 mg/Dextrose 56 ml @ 112 mls/hr DAILY IVPB 07/13/19 09:00 08/12/19 08:59 07/15/19 09:05 Trimethoprim/ Sulfamethoxazole (Bactrim-DS) 20 ml EVERY 12 HOURS NG 07/13/19 09:00 07/18/19 11:34 07/15/19 08:31 Robert Adams MD Jul 15, 2019 10:53"
[2019-07-15 12:00] VITALS: BP 120/75
--- NOTE | 2019-07-15 12:28 | Cardiac Electrophysiology PN ---
Assessment/Plan Assessment/Plan 1. Angioedema, s/p emergency tracheostomy Off the vent . Off the T tube also today 2. Dysphagia, S/P PEG 3. Hypertension. On Clonidine patch weekly 4. Cocaine abuse 5. ARF. Last HD and no further. 6. Anemia 7. HIV positive, newly diagnosed. FU ID DW RN Subjective Subjective On T tube and tracheostomy .In SR. T tube was just disconnected Objective Last 24 Hour Vital Signs Date Time Temp Pulse Resp B/P (MAP) Pulse Ox O2 Delivery O2 Flow Rate FiO2 07/15/19 09:09 98.1 07/15/19 08:00 T-piece 28.0 07/15/19 08:00 98.1 67 20 120/90 (100) 98 07/15/19 08:00 8.0 28 07/15/19 08:00 59 07/15/19 06:59 56 18 97 T-Piece 6.0 28 07/15/19 06:59 97 T-Piece 6.0 28 07/15/19 04:00 T-piece 28.0 07/15/19 04:00 97.5 54 20 122/77 (92) 98 07/15/19 04:00 8.0 28 07/15/19 03:54 55 07/15/19 03:42 98 T-Piece 6.0 28 07/15/19 00:00 97.0 57 20 127/77 (94) 100 07/15/19 00:00 T-piece 28.0 07/14/19 23:30 58 07/14/19 20:00 T-piece 28.0 07/14/19 20:00 98.1 60 24 138/87 (104) 100 07/14/19 20:00 8.0 28 07/14/19 19:37 67 07/14/19 19:35 68 18 98 T-Piece 6.0 28 07/14/19 19:35 98 T-Piece 6.0 28 07/14/19 16:54 67 07/14/19 16:00 T-piece 28.0 07/14/19 16:00 8.0 28 07/14/19 15:53 97.7 66 20 132/74 (93) 98 07/14/19 12:59 96 T-Piece 6.0 28 Intake and Output 07/14/19 07/15/19 19:00 07:00 Intake Total 2040 ml 1715 ml Output Total 1600 ml 1700 ml Balance 440 ml 15 ml Intake Free Water 300 ml 150 ml IV Total 1200 ml 1025 ml Tube Feeding 540 ml 540 ml Output Urine Total 1600 ml 1700 ml Laboratory Tests Test 07/15/19 03:35 White Blood Count 8.6 K/UL (4.8-10.8) Red Blood Count 3.06 M/UL (4.20-5.40) L Hemoglobin 9.3 G/DL (12.0-16.0) L Hematocrit 29.0 % (37.0-47.0) L Mean Corpuscular Volume 95 FL (80-99) Mean Corpuscular Hemoglobin 30.4 PG (27.0-31.0) Mean Corpuscular Hemoglobin Concent 32.1 G/DL (32.0-36.0) Red Cell Distribution Width 14.1 % (11.6-14.8) Platelet Count 227 K/UL (150-450) Mean Platelet Volume 7.3 FL (6.5-10.1) Neutrophils (%) (Auto) 78.7 % (45.0-75.0) H Lymphocytes (%) (Auto) 11.5 % (20.0-45.0) L Monocytes (%) (Auto) 7.9 % (1.0-10.0) Eosinophils (%) (Auto) 1.2 % (0.0-3.0) Basophils (%) (Auto) 0.7 % (0.0-2.0) Sodium Level 144 MMOL/L (136-145) Potassium Level 4.2 MMOL/L (3.5-5.1) Chloride Level 112 MMOL/L (98-107) H Carbon Dioxide Level 23 MMOL/L (21-32) Anion Gap 9 mmol/L (5-15) Blood Urea Nitrogen 17 mg/dL (7-18) Creatinine 1.5 MG/DL (0.55-1.30) H Estimat Glomerular Filtration Rate 42.9 mL/min (>60) Glucose Level 95 MG/DL (74-106) Calcium Level 8.4 MG/DL (8.5-10.1) L Microbiology Date/Time Source Procedure Growth Status 07/15/19 11:00 Rectum Received Objective HEENT: Tracheostomy in place LUNGS: Coarse rhonchi CVS: RRR ABDOMEN: Obese. PEG in place EXT: No edema. Right arm PICC line in place Giles Rodarte MD Jul 15, 2019 12:27
--- NOTE | 2019-07-15 13:52 | Surgery Progress Note ---
Surgery Progress Note Subjective Symptoms: improved, tolerating diet, voiding well, passing flatus Objective Last 24 Hour Vital Signs Date Time Temp Pulse Resp B/P (MAP) Pulse Ox O2 Delivery O2 Flow Rate FiO2 07/15/19 13:14 97.7 07/15/19 12:49 98 T-Piece 6.0 28 07/15/19 12:00 60 07/15/19 12:00 T-piece 28.0 07/15/19 12:00 98.4 67 20 120/75 (90) 98 07/15/19 12:00 8.0 28 07/15/19 08:00 T-piece 28.0 07/15/19 08:00 98.1 67 20 120/90 (100) 98 07/15/19 08:00 8.0 28 07/15/19 08:00 59 07/15/19 06:59 56 18 97 T-Piece 6.0 28 07/15/19 06:59 97 T-Piece 6.0 28 07/15/19 04:00 T-piece 28.0 07/15/19 04:00 97.5 54 20 122/77 (92) 98 07/15/19 04:00 8.0 28 07/15/19 03:54 55 07/15/19 03:42 98 T-Piece 6.0 28 07/15/19 00:00 97.0 57 20 127/77 (94) 100 07/15/19 00:00 T-piece 28.0 07/14/19 23:30 58 07/14/19 20:00 T-piece 28.0 07/14/19 20:00 98.1 60 24 138/87 (104) 100 07/14/19 20:00 8.0 28 07/14/19 19:37 67 07/14/19 19:35 68 18 98 T-Piece 6.0 28 07/14/19 19:35 98 T-Piece 6.0 28 07/14/19 16:54 67 07/14/19 16:00 T-piece 28.0 07/14/19 16:00 8.0 28 07/14/19 15:53 97.7 66 20 132/74 (93) 98 I&O Intake and Output 07/14/19 07/15/19 19:00 07:00 Intake Total 2040 ml 1715 ml Output Total 1600 ml 1700 ml Balance 440 ml 15 ml Intake Free Water 300 ml 150 ml IV Total 1200 ml 1025 ml Tube Feeding 540 ml 540 ml Output Urine Total 1600 ml 1700 ml Dressing: dry Wound: clean Drains: other Cardiovascular: RSR Respiratory: clear, decreased breath sounds Abdomen: soft, present bowel sounds, non-distended Extremities: no cyanosis, other Laboratory Tests Test 07/15/19 03:35 White Blood Count 8.6 K/UL (4.8-10.8) Red Blood Count 3.06 M/UL (4.20-5.40) L Hemoglobin 9.3 G/DL (12.0-16.0) L Hematocrit 29.0 % (37.0-47.0) L Mean Corpuscular Volume 95 FL (80-99) Mean Corpuscular Hemoglobin 30.4 PG (27.0-31.0) Mean Corpuscular Hemoglobin Concent 32.1 G/DL (32.0-36.0) Red Cell Distribution Width 14.1 % (11.6-14.8) Platelet Count 227 K/UL (150-450) Mean Platelet Volume 7.3 FL (6.5-10.1) Neutrophils (%) (Auto) 78.7 % (45.0-75.0) H Lymphocytes (%) (Auto) 11.5 % (20.0-45.0) L Monocytes (%) (Auto) 7.9 % (1.0-10.0) Eosinophils (%) (Auto) 1.2 % (0.0-3.0) Basophils (%) (Auto) 0.7 % (0.0-2.0) Sodium Level 144 MMOL/L (136-145) Potassium Level 4.2 MMOL/L (3.5-5.1) Chloride Level 112 MMOL/L (98-107) H Carbon Dioxide Level 23 MMOL/L (21-32) Anion Gap 9 mmol/L (5-15) Blood Urea Nitrogen 17 mg/dL (7-18) Creatinine 1.5 MG/DL (0.55-1.30) H Estimat Glomerular Filtration Rate 42.9 mL/min (>60) Glucose Level 95 MG/DL (74-106) Calcium Level 8.4 MG/DL (8.5-10.1) L Plan Problems: (1) Angioedema Assessment & Plan: airway trach as per reports trach stable currently sutures in place dressings changed HD line in place and noted off vent will follow with recs thank you (2) Tracheostomy hemorrhage Assessment & Plan: stable dressings dry will monitor doing well may need revision given mucus leak (3) Tracheostomy complication Assessment & Plan: Much less leakage around trach site. Wound clean and dry now. No signs of active infection. Mucus decrease. Will unlikely need revision at this point. 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
--- NOTE | 2019-07-15 14:31 | GI Progress Note ---
Assessment/Plan Problems: (1) Tracheostomy complication ICD Codes: J95.00 - Unspecified tracheostomy complication SNOMED: 92953021 (2) Angioedema ICD Codes: T78.3XXA - Angioneurotic edema, initial encounter SNOMED: 80471438 Qualifiers: Qualified Codes: T78.3XXA - Angioneurotic edema, initial encounter (3) Cocaine abuse ICD Codes: F14.10 - Cocaine abuse, uncomplicated SNOMED: 16277646 Status: progressing Status Narrative Discussed with Dr. Rogers. Assessment/Plan Assessment - Angioedema, s/p emergency trach - abnormal LFT, ? Rhabdo related - improving - borderline CBD dilation on U/S - abnormal Lipase, ? significance - dysphagia, did not pass swallow - now with PEG - Thrombocytopenia - improved - HIV (+) - Drug abuse Recommendations - Continue tube feeds, fu MBSS - GT care - Monitor labs - will consider CT imaging of abd once out of ICU - Pepcid - follow labs The patient was seen and examined at bedside and all new and available data was reviewed in the patients chart. I agree with the above findings, impression and plan. (Patient seen earlier today. Signature stamp does not reflect patient encounter time.). - Bunny Rogers MD Subjective Gastrointestinal/Abdominal: Reports: no symptoms Objective Last 24 Hour Vital Signs Date Time Temp Pulse Resp B/P (MAP) Pulse Ox O2 Delivery O2 Flow Rate FiO2 07/15/19 13:14 97.7 07/15/19 12:49 98 T-Piece 6.0 28 07/15/19 12:00 60 07/15/19 12:00 T-piece 28.0 07/15/19 12:00 98.4 67 20 120/75 (90) 98 07/15/19 12:00 8.0 28 07/15/19 08:00 T-piece 28.0 07/15/19 08:00 98.1 67 20 120/90 (100) 98 07/15/19 08:00 8.0 28 07/15/19 08:00 59 07/15/19 06:59 56 18 97 T-Piece 6.0 28 07/15/19 06:59 97 T-Piece 6.0 28 07/15/19 04:00 T-piece 28.0 07/15/19 04:00 97.5 54 20 122/77 (92) 98 9/2/19 04:00 8.0 28 07/15/19 03:54 55 07/15/19 03:42 98 T-Piece 6.0 28 07/15/19 00:00 97.0 57 20 127/77 (94) 100 07/15/19 00:00 T-piece 28.0 07/14/19 23:30 58 07/14/19 20:00 T-piece 28.0 07/14/19 20:00 98.1 60 24 138/87 (104) 100 07/14/19 20:00 8.0 28 07/14/19 19:37 67 07/14/19 19:35 68 18 98 T-Piece 6.0 28 07/14/19 19:35 98 T-Piece 6.0 28 07/14/19 16:54 67 07/14/19 16:00 T-piece 28.0 07/14/19 16:00 8.0 28 07/14/19 15:53 97.7 66 20 132/74 (93) 98 Intake and Output 07/14/19 07/15/19 19:00 07:00 Intake Total 2040 ml 1715 ml Output Total 1600 ml 1700 ml Balance 440 ml 15 ml Intake Free Water 300 ml 150 ml IV Total 1200 ml 1025 ml Tube Feeding 540 ml 540 ml Output Urine Total 1600 ml 1700 ml Laboratory Tests Test 07/15/19 03:35 White Blood Count 8.6 K/UL (4.8-10.8) Red Blood Count 3.06 M/UL (4.20-5.40) L Hemoglobin 9.3 G/DL (12.0-16.0) L Hematocrit 29.0 % (37.0-47.0) L Mean Corpuscular Volume 95 FL (80-99) Mean Corpuscular Hemoglobin 30.4 PG (27.0-31.0) Mean Corpuscular Hemoglobin Concent 32.1 G/DL (32.0-36.0) Red Cell Distribution Width 14.1 % (11.6-14.8) Platelet Count 227 K/UL (150-450) Mean Platelet Volume 7.3 FL (6.5-10.1) Neutrophils (%) (Auto) 78.7 % (45.0-75.0) H Lymphocytes (%) (Auto) 11.5 % (20.0-45.0) L Monocytes (%) (Auto) 7.9 % (1.0-10.0) Eosinophils (%) (Auto) 1.2 % (0.0-3.0) Basophils (%) (Auto) 0.7 % (0.0-2.0) Sodium Level 144 MMOL/L (136-145) Potassium Level 4.2 MMOL/L (3.5-5.1) Chloride Level 112 MMOL/L (98-107) H Carbon Dioxide Level 23 MMOL/L (21-32) Anion Gap 9 mmol/L (5-15) Blood Urea Nitrogen 17 mg/dL (7-18) Creatinine 1.5 MG/DL (0.55-1.30) H Estimat Glomerular Filtration Rate 42.9 mL/min (>60) Glucose Level 95 MG/DL (74-106) Calcium Level 8.4 MG/DL (8.5-10.1) L Microbiology Date/Time Source Procedure Growth Status 07/15/19 11:00 Rectum Received Height (Feet): 5 Height (Inches): 3.00 Weight (Pounds): 174 General Appearance: no apparent distress Cardiovascular: normal rate Respiratory/Chest: normal breath sounds, no respiratory distress, other - trach Abdominal Exam: normal bowel sounds, non tender, soft, GT site Extremities: non-tender Emely Castaneda NP Jul 15, 2019 14:31
[2019-07-15 16:00] VITALS: BP 121/77
--- NOTE | 2019-07-15 19:45 | Hematology/Onc Progress Note ---
Assessment/Plan Assessment/Plan A/R # Anemia of chronic disease due to underlying chronic medical issues, multifactorial --> Anemia workup has been ordered and c/w acd --> No evidence of hemolysis is noted, peripheral smear has been reviewed. --> Hgb goal >8. Transfuse prn. --> Epogen indicated given hiv --> Medications have been reviewed --> low threshold for gi evaluation in case has occult + --> hgb trend 8.7--> 9-->10.9-->9.7->8.6-->9.6-->8.8-->10.3->9.3 --> b12, folic acid, tsh reviewed # Leukocytosis --> wbc trend 17-->15-->14k->16-->19.4-->15-->15.9-->13.6-->17.1-->12.1-->8.6 --> steriods for angioedema # Thrombocytopenia - potential causes multifactorial, evaluate liver and viral etiologies to begin, also could be related to underlying medications patient has received. 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 Significance/etiology uncertain. This can be seen in chronic pancreatitis as well as ductectatic neoplasm--> once more stable get Ct with iv cont --> DIC panel has been reviewed, NEgative --> Peripheral smear ordered to evaluate for blasts /schistocytes and none noted --> abx and other meds have been reviewed --> ok for ppx if plt >50k w/ either heparin or lovenox --> Transfuse if Plt < 20k and fever, or if Plt < 10k without fever --> plt trend 200-->87-->60-->38k-> 50k-->91k-->110k-->138k-->184k->207k-->241k- ->221k -> [id number] ordered -- > is neg --> ID eval and care per id # Angioedeama --> ffp, steriods given --> s/p trach # Resp failure s/p trach --> to vent # Severe Hypotension --> is now off both pressors. # Hx of Hypertension # Cocaine abuse # ARF on HD now --> 07/02 --> now off hd # HIV++ --> as per id The timing of this note does not necessarily reflect the time of the patient was seen. GREATLY APPRECIATE CONSULTATION. Subjective HEENT: Denies: no symptoms, eye pain, blurred vision, tearing, double vision, ear pain, ear discharge, nose pain, nose congestion, throat pain, throat swelling, mouth pain, mouth swelling, other Cardiovascular: Denies: no symptoms, chest pain, edema, irregular heart rate, lightheadedness, palpitations, syncope, other Respiratory: Denies: no symptoms, cough, shortness of breath, SOB with excertion, SOB at rest, sputum, wheezing, other Genitourinary: Denies: no symptoms, burning, discharge, frequency, flank pain, hematuria, incontinence, pain, urgency, other Neurologic/Psychiatric: Denies: no symptoms, anxiety, depressed, emotional problems, headache, numbness, paresthesia, pre-existing deficit, seizure, tingling, tremors, weakness, other Endocrine: Denies: no symptoms, excessive sweating, flushing, intolerance to cold, intolerance to heat, increased hunger, increased thirst, increased urine, unexplained weight gain, unexplained weight loss, other Hematologic/Lymphatic: Denies: no symptoms, anemia, easy bleeding, easy bruising, adenopathy, other Allergies: Coded Allergies: No Known Allergies (Unverified , 06/29/19) Subjective 07/02: remains in the icu, onpressors and epogen, hgb stable 07/03: in icu, no events, on vent, no fever or chills, denies pain or sob 07/04: s/p vent/trach, on fentanyl gtt, id made aware of HIV++ 07/05: sedated, trach, off abx, labs reviewed 07/07: weaning off pressors, no fevers or chills, is on pcp ppx 07/08: weaning off vent, no bleeding, htn better on clonidine coughing intermittently 07/10: getting 1 unit prnc, weaning vent when possible 07/11: off the vent, on ivf, no complaints. on abx, labs noted, wbc trending up 07/12: vs stable, no pain or discomfort, on abx, 07/13: remains on peg tube feeds, on t-piece as well 8l 07/15: no bleeding, continue on meds, on tube feeds Objective Objective Current Medications Medications (Trade) Dose Ordered Sig/Dmitri Route PRN Reason Start Time Stop Time Status Last Admin Dose Admin Acetaminophen (Tylenol) 650 mg Q4H PRN NG Mild Pain/fever 07/13/19 06:00 08/09/19 05:59 07/13/19 20:44 Acetaminophen (Tylenol) 650 mg Q4H PRN RECTAL FEVER 07/13/19 06:00 07/29/19 05:59 Clonazepam (KlonoPIN) 1 mg Q6H PRN NG For Anxiety 07/13/19 06:00 07/16/19 05:59 07/13/19 20:42 Clonidine HCl (Catapres TTS-1) 1 patch QWEEK TDERMAL 07/18/19 15:00 08/03/19 14:59 Dextrose (Dextrose 50%) 25 ml Q30M PRN IV Hypoglycemia 07/13/19 06:30 07/30/19 14:59 Dextrose (Dextrose 50%) 50 ml Q30M PRN IV Hypoglycemia 07/13/19 06:30 07/30/19 14:59 Dextrose/Sodium Chloride 1,000 ml @ 100 mls/hr Q10H IV 07/13/19 06:15 08/10/19 12:44 07/15/19 09:05 Diphenhydramine HCl (Benadryl) 25 mg Q6H PRN IVP Muscle Spasm 07/13/19 06:00 07/29/19 05:59 07/15/19 17:58 Epoetin Eric (Epoetin Eric(ESRD on dialysis)) 8,000 unit MON-MON-MON SUBQ 07/15/19 21:00 07/31/19 20:59 Famotidine (Pepcid I.v.) 20 mg Q12HR IVP 07/13/19 09:00 07/30/19 20:59 07/15/19 08:31 Hydralazine HCl (Apresoline) 10 mg Q2H PRN IV For High Blood Pressure 07/13/19 07:15 08/01/19 21:14 Hydromorphone HCl (Dilaudid) 2 mg Q3H PRN IVP Severe Breakthru Pain (>7) 07/13/19 17:15 07/20/19 17:14 07/15/19 17:59 Insulin Aspart (NovoLOG) BEFORE MEALS AND HS SUBQ 07/13/19 06:30 07/30/19 16:29 07/15/19 12:48 Magnesium Oxide (Mag-Ox 400mg) 400 mg THREE TIMES A DAY NG 07/13/19 09:00 08/06/19 12:59 07/15/19 17:59 Methylprednisolone Sodium Succinate (Solu-MEDROL) 40 mg DAILY IVP 07/13/19 09:00 07/29/19 13:59 07/15/19 08:31 Metoclopramide HCl (Reglan) 10 mg Q6H PRN IVP Nausea & Vomiting 07/13/19 06:00 07/29/19 05:59 Mirtazapine (Remeron) 7.5 mg BEDTIME ORAL 07/13/19 21:00 08/11/19 00:00 07/14/19 21:16 Ondansetron HCl (Zofran) 4 mg Q6H PRN IVP Nausea & Vomiting 07/13/19 06:00 07/29/19 05:59 Thiamine HCl 100 mg/Dextrose 56 ml @ 112 mls/hr DAILY IVPB 07/13/19 09:00 08/12/19 08:59 07/15/19 09:05 Trimethoprim/ Sulfamethoxazole (Bactrim-DS) 20 ml EVERY 12 HOURS NG 07/13/19 09:00 07/18/19 11:34 07/15/19 08:31 Last 24 Hour Vital Signs Date Time Temp Pulse Resp B/P (MAP) Pulse Ox O2 Delivery O2 Flow Rate FiO2 07/15/19 18:29 97.7 07/15/19 16:00 8.0 28 07/15/19 16:00 T-piece 28.0 07/15/19 16:00 97.7 60 18 121/77 (92) 100 07/15/19 16:00 62 07/15/19 12:49 98 T-Piece 6.0 28 07/15/19 12:00 60 07/15/19 12:00 T-piece 28.0 07/15/19 12:00 98.4 67 20 120/75 (90) 98 07/15/19 12:00 8.0 28 07/15/19 08:00 T-piece 28.0 07/15/19 08:00 98.1 67 20 120/90 (100) 98 07/15/19 08:00 8.0 28 07/15/19 08:00 59 07/15/19 06:59 56 18 97 T-Piece 6.0 07/15/19 06:59 97 T-Piece 6.0 07/15/19 04:00 T-piece 28.0 07/15/19 04:00 97.5 54 20 122/77 (92) 98 07/15/19 04:00 8.0 07/15/19 03:54 55 07/15/19 03:42 98 T-Piece 6.0 07/15/19 00:00 97.0 57 20 127/77 (94) 100 07/15/19 00:00 T-piece 28.0 07/14/19 23:30 58 07/14/19 20:00 T-piece 28.0 07/14/19 20:00 98.1 60 24 138/87 (104) 100 07/14/19 20:00 8.0 28 07/14/19 19:37 67 07/14/19 19:35 68 18 98 T-Piece 6.0 07/14/19 19:35 98 T-Piece 6.0 07/14/19 16:54 67 07/14/19 16:00 T-piece 28.0 07/14/19 16:00 8.0 28 07/14/19 15:53 97.7 66 20 132/74 (93) 98 07/14/19 12:59 96 T-Piece 6.0 07/14/19 12:00 62 07/14/19 12:00 97.9 68 19 104/65 (78) 98 07/14/19 12:00 T-piece 28.0 07/14/19 12:00 8.0 28 07/14/19 09:00 T-piece 28.0 07/14/19 08:53 59 07/14/19 08:00 8.0 28 07/14/19 08:00 97.2 69 20 130/74 (92) 99 07/14/19 06:34 97 T-Piece 8.0 30 07/14/19 06:34 62 18 97 T-Piece 8.0 30 07/14/19 04:00 97.6 56 22 112/64 (80) 97 07/14/19 04:00 8.0 28 07/14/19 04:00 T-piece 28.0 07/14/19 03:59 54 07/14/19 01:02 98 T-Piece 8.0 30 07/14/19 00:00 T-piece 28.0 07/14/19 00:00 8.0 28 07/14/19 00:00 97.6 51 16 104/70 (81) 99 07/13/19 23:48 58 07/13/19 21:14 98.3 07/13/19 20:00 8.0 28 07/13/19 20:00 96.8 64 18 127/78 (94) 99 07/13/19 20:00 T-piece 28.0 Intake and Output 07/14/19 07/15/19 19:00 07:00 Intake Total 2040 ml 1715 ml Output Total 1600 ml 1700 ml Balance 440 ml 15 ml Intake Free Water 300 ml 150 ml IV Total 1200 ml 1025 ml Tube Feeding 540 ml 540 ml Output Urine Total 1600 ml 1700 ml Labs Test 07/13/19 04:19 07/14/19 03:48 07/15/19 03:35 White Blood Count 10.2 K/UL (4.8-10.8) 8.0 K/UL (4.8-10.8) 8.6 K/UL (4.8-10.8) Red Blood Count 3.36 M/UL (4.20-5.40) 3.08 M/UL (4.20-5.40) 3.06 M/UL (4.20-5.40) Hemoglobin 10.3 G/DL (12.0-16.0) 9.5 G/DL (12.0-16.0) 9.3 G/DL (12.0-16.0) Hematocrit 31.8 % (37.0-47.0) 29.1 % (37.0-47.0) 29.0 % (37.0-47.0) Mean Corpuscular Volume 95 FL (80-99) 95 FL (80-99) 95 FL (80-99) Mean Corpuscular Hemoglobin 30.7 PG (27.0-31.0) 30.8 PG (27.0-31.0) 30.4 PG (27.0-31.0) Mean Corpuscular Hemoglobin Concent 32.4 G/DL (32.0-36.0) 32.5 G/DL (32.0-36.0) 32.1 G/DL (32.0-36.0) Red Cell Distribution Width 14.0 % (11.6-14.8) 14.1 % (11.6-14.8) 14.1 % (11.6-14.8) Platelet Count 274 K/UL (150-450) 243 K/UL (150-450) 227 K/UL (150-450) Mean Platelet Volume 7.9 FL (6.5-10.1) 7.3 FL (6.5-10.1) 7.3 FL (6.5-10.1) Neutrophils (%) (Auto) 82.3 % (45.0-75.0) 84.7 % (45.0-75.0) 78.7 % (45.0-75.0) Lymphocytes (%) (Auto) 9.3 % (20.0-45.0) 6.9 % (20.0-45.0) 11.5 % (20.0-45.0) Monocytes (%) (Auto) 6.7 % (1.0-10.0) 6.5 % (1.0-10.0) 7.9 % (1.0-10.0) Eosinophils (%) (Auto) 1.2 % (0.0-3.0) 1.4 % (0.0-3.0) 1.2 % (0.0-3.0) Basophils (%) (Auto) 0.4 % (0.0-2.0) 0.5 % (0.0-2.0) 0.7 % (0.0-2.0) Sodium Level 141 MMOL/L (136-145) 141 MMOL/L (136-145) 144 MMOL/L (136-145) Potassium Level 3.8 MMOL/L (3.5-5.1) 4.0 MMOL/L (3.5-5.1) 4.2 MMOL/L (3.5-5.1) Chloride Level 109 MMOL/L (98-107) 109 MMOL/L (98-107) 112 MMOL/L (98-107) Carbon Dioxide Level 25 MMOL/L (21-32) 24 MMOL/L (21-32) 23 MMOL/L (21-32) Anion Gap 7 mmol/L (5-15) 8 mmol/L (5-15) 9 mmol/L (5-15) Blood Urea Nitrogen 13 mg/dL (7-18) 16 mg/dL (7-18) 17 mg/dL (7-18) Creatinine 1.5 MG/DL (0.55-1.30) 1.6 MG/DL (0.55-1.30) 1.5 MG/DL (0.55-1.30) Estimat Glomerular Filtration Rate 42.9 mL/min (>60) 39.9 mL/min (>60) 42.9 mL/min (>60) Glucose Level 94 MG/DL (74-106) 89 MG/DL (74-106) 95 MG/DL (74-106) Calcium Level 8.2 MG/DL (8.5-10.1) 8.3 MG/DL (8.5-10.1) 8.4 MG/DL (8.5-10.1) Micro Microbiology Date/Time Source Procedure Growth Status 07/15/19 11:00 Rectum Received Height (Feet): 5 Height (Inches): 3.00 Weight (Pounds): 174 Objective Physical Exam: Vitals: reviewed General Appearance: NAD HEENT: normocephalic, atraumatic ++ trach 9L Neck: non-tender, normal alignment Respiratory/Chest: normal breath sounds bilaterally Cardiovascular/Chest: normal peripheral pulses, normal rate Abdomen: normal bowel sounds, soft, nontender Extremities: normal range of motion Jordan Nguyen MD Jul 15, 2019 19:45
[2019-07-15 20:00] VITALS: BP 138/84
[2019-07-15] MEDS ORDERED: Epoetin Alfa-EPBX(ESRD on dialysis)4000 units/ml vial SUBQ SCH (21:00)
--- NOTE | 2019-07-15 21:11 | Hematology/Onc Progress Note ---
Assessment/Plan Assessment/Plan LATE ENTRY NOTE FOR 07/14/2019 Assessment/Plan A/R # Anemia of chronic disease due to underlying chronic medical issues, multifactorial --> Anemia workup has been ordered and c/w acd --> No evidence of hemolysis is noted, peripheral smear has been reviewed. --> Hgb goal >8. Transfuse prn. --> Epogen indicated given hiv --> Medications have been reviewed --> low threshold for gi evaluation in case has occult + --> hgb trend 8.7--> 9-->10.9-->9.7->8.6-->9.6-->8.8-->10.3->9.3 --> b12, folic acid, tsh reviewed # Leukocytosis --> wbc trend 17-->15-->14k->16-->19.4-->15-->15.9-->13.6-->17.1-->12.1-->8.6 --> steriods for angioedema # Thrombocytopenia - potential causes multifactorial, evaluate liver and viral etiologies to begin, also could be related to underlying medications patient has received. 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 Significance/etiology uncertain. This can be seen in chronic pancreatitis as well as ductectatic neoplasm--> once more stable get Ct with iv cont --> DIC panel has been reviewed, NEgative --> Peripheral smear ordered to evaluate for blasts /schistocytes and none noted --> abx and other meds have been reviewed --> ok for ppx if plt >50k w/ either heparin or lovenox --> Transfuse if Plt < 20k and fever, or if Plt < 10k without fever --> plt trend 200-->87-->60-->38k-> 50k-->91k-->110k-->138k-->184k->207k-->241k- ->221k -> [id number] ordered -- > is neg --> ID eval and care per id # Angioedeama --> ffp, steriods given --> s/p trach # Resp failure s/p trach --> to vent # Severe Hypotension --> is now off both pressors. # Hx of Hypertension # Cocaine abuse # ARF on HD now --> 07/02 --> now off hd # HIV++ --> as per id The timing of this note does not necessarily reflect the time of the patient was seen. GREATLY APPRECIATE CONSULTATION. Subjective Allergies: Coded Allergies: No Known Allergies (Unverified , 06/29/19) Subjective Subjective 07/02: remains in the icu, onpressors and epogen, hgb stable 07/03: in icu, no events, on vent, no fever or chills, denies pain or sob 07/04: s/p vent/trach, on fentanyl gtt, id made aware of HIV++ 07/05: sedated, trach, off abx, labs reviewed 07/07: weaning off pressors, no fevers or chills, is on pcp ppx 07/08: weaning off vent, no bleeding, htn better on clonidine coughing intermittently 07/10: getting 1 unit prnc, weaning vent when possible 07/11: off the vent, on ivf, no complaints. on abx, labs noted, wbc trending up 07/12: vs stable, no pain or discomfort, on abx, 07/13: remains on peg tube feeds, on t-piece as well 8l 07/14: no acute events. Objective Objective Current Medications Medications (Trade) Dose Ordered Sig/Dmitri Route PRN Reason Start Time Stop Time Status Last Admin Dose Admin Acetaminophen (Tylenol) 650 mg Q4H PRN NG Mild Pain/fever 07/13/19 06:00 08/09/19 05:59 07/13/19 20:44 Acetaminophen (Tylenol) 650 mg Q4H PRN RECTAL FEVER 07/13/19 06:00 07/29/19 05:59 Clonazepam (KlonoPIN) 1 mg Q6H PRN NG For Anxiety 07/13/19 06:00 07/16/19 05:59 07/13/19 20:42 Clonidine HCl (Catapres TTS-1) 1 patch QWEEK TDERMAL 07/18/19 15:00 08/03/19 14:59 Dextrose (Dextrose 50%) 25 ml Q30M PRN IV Hypoglycemia 07/13/19 06:30 07/30/19 14:59 Dextrose (Dextrose 50%) 50 ml Q30M PRN IV Hypoglycemia 07/13/19 06:30 07/30/19 14:59 Dextrose/Sodium Chloride 1,000 ml @ 100 mls/hr Q10H IV 07/13/19 06:15 08/10/19 12:44 07/15/19 09:05 Diphenhydramine HCl (Benadryl) 25 mg Q6H PRN IVP Muscle Spasm 07/13/19 06:00 07/29/19 05:59 07/15/19 17:58 Epoetin Eric (Epoetin Eric(ESRD on dialysis)) 8,000 unit MON- SUBQ 07/15/19 21:00 07/31/19 20:59 Famotidine (Pepcid I.v.) 20 mg Q12HR IVP 07/13/19 09:00 07/30/19 20:59 07/15/19 08:31 Hydralazine HCl (Apresoline) 10 mg Q2H PRN IV For High Blood Pressure 07/13/19 07:15 08/01/19 21:14 Hydromorphone HCl (Dilaudid) 2 mg Q3H PRN IVP Severe Breakthru Pain (>7) 07/13/19 17:15 07/20/19 17:14 07/15/19 17:59 Insulin Aspart (NovoLOG) BEFORE MEALS AND HS SUBQ 07/13/19 06:30 07/30/19 16:29 07/15/19 12:48 Magnesium Oxide (Mag-Ox 400mg) 400 mg THREE TIMES A DAY NG 07/13/19 09:00 08/06/19 12:59 07/15/19 17:59 Methylprednisolone Sodium Succinate (Solu-MEDROL) 40 mg DAILY IVP 07/13/19 09:00 07/29/19 13:59 07/15/19 08:31 Metoclopramide HCl (Reglan) 10 mg Q6H PRN IVP Nausea & Vomiting 07/13/19 06:00 07/29/19 05:59 Mirtazapine (Remeron) 7.5 mg BEDTIME ORAL 07/13/19 21:00 08/11/19 00:00 07/14/19 21:16 Ondansetron HCl (Zofran) 4 mg Q6H PRN IVP Nausea & Vomiting 07/13/19 06:00 07/29/19 05:59 Thiamine HCl 100 mg/Dextrose 56 ml @ 112 mls/hr DAILY IVPB 07/13/19 09:00 08/12/19 08:59 07/15/19 09:05 Trimethoprim/ Sulfamethoxazole (Bactrim-DS) 20 ml EVERY 12 HOURS NG 07/13/19 09:00 07/18/19 11:34 07/15/19 08:31 Last 24 Hour Vital Signs Date Time Temp Pulse Resp B/P (MAP) Pulse Ox O2 Delivery O2 Flow Rate FiO2 07/15/19 20:00 97.7 60 20 138/84 (102) 100 07/15/19 20:00 8.0 28 07/15/19 20:00 T-piece 28.0 07/15/19 19:47 98 T-Piece 6.0 28 07/15/19 19:47 64 18 98 T-Piece 6.0 28 07/15/19 18:29 97.7 07/15/19 16:00 8.0 28 07/15/19 16:00 T-piece 28.0 07/15/19 16:00 97.7 60 18 121/77 (92) 100 07/15/19 16:00 62 07/15/19 12:49 98 T-Piece 6.0 28 07/15/19 12:00 60 07/15/19 12:00 T-piece 28.0 07/15/19 12:00 98.4 67 20 120/75 (90) 98 07/15/19 12:00 8.0 28 07/15/19 08:00 T-piece 28.0 07/15/19 08:00 98.1 67 20 120/90 (100) 98 07/15/19 08:00 8.0 28 07/15/19 08:00 59 07/15/19 06:59 56 18 97 T-Piece 6.0 28 07/15/19 06:59 97 T-Piece 6.0 28 07/15/19 04:00 T-piece 28.0 07/15/19 04:00 97.5 54 20 122/77 (92) 98 07/15/19 04:00 8.0 28 07/15/19 03:54 55 07/15/19 03:42 98 T-Piece 6.0 28 07/15/19 00:00 97.0 57 20 127/77 (94) 100 07/15/19 00:00 T-piece 28.0 07/14/19 23:30 58 07/14/19 20:00 T-piece 28.0 07/14/19 20:00 98.1 60 24 138/87 (104) 100 07/14/19 20:00 8.0 28 07/14/19 19:37 67 07/14/19 19:35 68 18 98 T-Piece 6.0 28 07/14/19 19:35 98 T-Piece 6.0 28 07/14/19 16:54 67 07/14/19 16:00 T-piece 28.0 07/14/19 16:00 8.0 28 07/14/19 15:53 97.7 66 20 132/74 (93) 98 07/14/19 12:59 96 T-Piece 6.0 28 07/14/19 12:00 62 07/14/19 12:00 97.9 68 19 104/65 (78) 98 07/14/19 12:00 T-piece 28.0 07/14/19 12:00 8.0 07/14/19 09:00 T-piece 28.0 07/14/19 08:53 59 07/14/19 08:00 8.0 28 07/14/19 08:00 97.2 69 20 130/74 (92) 99 07/14/19 06:34 97 T-Piece 8.0 30 07/14/19 06:34 62 18 97 T-Piece 8.0 30 07/14/19 04:00 97.6 56 22 112/64 (80) 97 07/14/19 04:00 8.0 28 07/14/19 04:00 T-piece 28.0 07/14/19 03:59 54 07/14/19 01:02 98 T-Piece 8.0 30 07/14/19 00:00 T-piece 28.0 07/14/19 00:00 8.0 28 07/14/19 00:00 97.6 51 16 104/70 (81) 99 07/13/19 23:48 58 07/13/19 21:14 98.3 Intake and Output 07/14/19 07/15/19 19:00 07:00 Intake Total 2040 ml 1715 ml Output Total 1600 ml 1700 ml Balance 440 ml 15 ml Intake Free Water 300 ml 150 ml IV Total 1200 ml 1025 ml Tube Feeding 540 ml 540 ml Output Urine Total 1600 ml 1700 ml Labs Test 07/13/19 04:19 07/14/19 03:48 07/15/19 03:35 White Blood Count 10.2 K/UL (4.8-10.8) 8.0 K/UL (4.8-10.8) 8.6 K/UL (4.8-10.8) Red Blood Count 3.36 M/UL (4.20-5.40) 3.08 M/UL (4.20-5.40) 3.06 M/UL (4.20-5.40) Hemoglobin 10.3 G/DL (12.0-16.0) 9.5 G/DL (12.0-16.0) 9.3 G/DL (12.0-16.0) Hematocrit 31.8 % (37.0-47.0) 29.1 % (37.0-47.0) 29.0 % (37.0-47.0) Mean Corpuscular Volume 95 FL (80-99) 95 FL (80-99) 95 FL (80-99) Mean Corpuscular Hemoglobin 30.7 PG (27.0-31.0) 30.8 PG (27.0-31.0) 30.4 PG (27.0-31.0) Mean Corpuscular Hemoglobin Concent 32.4 G/DL (32.0-36.0) 32.5 G/DL (32.0-36.0) 32.1 G/DL (32.0-36.0) Red Cell Distribution Width 14.0 % (11.6-14.8) 14.1 % (11.6-14.8) 14.1 % (11.6-14.8) Platelet Count 274 K/UL (150-450) 243 K/UL (150-450) 227 K/UL (150-450) Mean Platelet Volume 7.9 FL (6.5-10.1) 7.3 FL (6.5-10.1) 7.3 FL (6.5-10.1) Neutrophils (%) (Auto) 82.3 % (45.0-75.0) 84.7 % (45.0-75.0) 78.7 % (45.0-75.0) Lymphocytes (%) (Auto) 9.3 % (20.0-45.0) 6.9 % (20.0-45.0) 11.5 % (20.0-45.0) Monocytes (%) (Auto) 6.7 % (1.0-10.0) 6.5 % (1.0-10.0) 7.9 % (1.0-10.0) Eosinophils (%) (Auto) 1.2 % (0.0-3.0) 1.4 % (0.0-3.0) 1.2 % (0.0-3.0) Basophils (%) (Auto) 0.4 % (0.0-2.0) 0.5 % (0.0-2.0) 0.7 % (0.0-2.0) Sodium Level 141 MMOL/L (136-145) 141 MMOL/L (136-145) 144 MMOL/L (136-145) Potassium Level 3.8 MMOL/L (3.5-5.1) 4.0 MMOL/L (3.5-5.1) 4.2 MMOL/L (3.5-5.1) Chloride Level 109 MMOL/L (98-107) 109 MMOL/L (98-107) 112 MMOL/L (98-107) Carbon Dioxide Level 25 MMOL/L (21-32) 24 MMOL/L (21-32) 23 MMOL/L (21-32) Anion Gap 7 mmol/L (5-15) 8 mmol/L (5-15) 9 mmol/L (5-15) Blood Urea Nitrogen 13 mg/dL (7-18) 16 mg/dL (7-18) 17 mg/dL (7-18) Creatinine 1.5 MG/DL (0.55-1.30) 1.6 MG/DL (0.55-1.30) 1.5 MG/DL (0.55-1.30) Estimat Glomerular Filtration Rate 42.9 mL/min (>60) 39.9 mL/min (>60) 42.9 mL/min (>60) Glucose Level 94 MG/DL (74-106) 89 MG/DL (74-106) 95 MG/DL (74-106) Calcium Level 8.2 MG/DL (8.5-10.1) 8.3 MG/DL (8.5-10.1) 8.4 MG/DL (8.5-10.1) Micro Microbiology Date/Time Source Procedure Growth Status 07/15/19 11:00 Rectum Received Height (Feet): 5 Height (Inches): 3.00 Weight (Pounds): 174 Objective Physical Exam: Vitals: reviewed General Appearance: NAD HEENT: normocephalic, atraumatic ++ trach 9L Neck: non-tender, normal alignment Respiratory/Chest: normal breath sounds bilaterally Cardiovascular/Chest: normal peripheral pulses, normal rate Abdomen: normal bowel sounds, soft, nontender Extremities: normal range of motion Madai Singh NP Jul 15, 2019 21:11
[2019-07-16] VITALS: BP 136/79
[2019-07-16] MEDS: DiphenhydrAMINE 50mg/ml Inj IVP PRN ×4 (01:08→23:20)
[2019-07-16 04:00] VITALS: BP 136/85
[2019-07-16] MEDS: D5 1/2NS 1,000 ML IV SCH (04:00)
[2019-07-16] MEDS: NovoLOG Insulin Flexpen SUBQ SCH ×4 (06:30→21:00)
--- NOTE | 2019-07-16 07:47 | General Progress Note ---
Assessment/Plan Status: progressing Assessment/Plan: Assessment - Angioedema, s/p emergency trach - abnormal LFT, ? Rhabdo related - resolved - borderline CBD dilation on U/S - abnormal Lipase, ? significance - dysphagia, did not pass swallow - now with PEG - Thrombocytopenia - improved - HIV (+) - Drug abuse Recommendations - Continue tube feeds - GT care - Monitor labs - recheck CMP - Pepcid Subjective Allergies: Coded Allergies: LISINOPRIL (Unverified Allergy, Severe, Angioedema, 07/16/19) Per pt's girlfriend (Melody Easley) and patient- both state the pt took lisinopril (belonged to [facility]y) twice before and had mild facial swelling; however when the pt took it for the 3rd time, both her face and tongue were swollen and she was admitted here for Angioedema. Subjective awake out of ICU tolerating feeds Objective Last 24 Hour Vital Signs Date Time Temp Pulse Resp B/P (MAP) Pulse Ox O2 Delivery O2 Flow Rate FiO2 07/16/19 07:41 62 14 97 T-Piece 6.0 28 07/16/19 07:41 97 T-Piece 6.0 28 07/16/19 04:00 68 07/16/19 04:00 97.7 63 20 136/85 (102) 100 07/16/19 04:00 T-piece 28.0 07/16/19 04:00 8.0 28 07/16/19 01:12 98 T-Piece 6.0 28 07/16/19 00:00 8.0 28 07/16/19 00:00 60 07/16/19 00:00 97.3 60 20 136/79 (98) 100 07/16/19 00:00 T-piece 28.0 07/15/19 20:00 97.7 60 20 138/84 (102) 100 07/15/19 20:00 61 07/15/19 20:00 8.0 28 07/15/19 20:00 T-piece 28.0 07/15/19 19:47 98 T-Piece 6.0 28 07/15/19 19:47 64 18 98 T-Piece 6.0 28 07/15/19 18:29 97.7 07/15/19 16:00 8.0 28 07/15/19 16:00 T-piece 28.0 07/15/19 16:00 97.7 60 18 121/77 (92) 100 07/15/19 16:00 62 07/15/19 12:49 98 T-Piece 6.0 28 07/15/19 12:00 60 07/15/19 12:00 T-piece 28.0 07/15/19 12:00 98.4 67 20 120/75 (90) 98 07/15/19 12:00 8.0 28 07/15/19 08:00 T-piece 28.0 07/15/19 08:00 98.1 67 20 120/90 (100) 98 07/15/19 08:00 8.0 28 07/15/19 08:00 59 Intake and Output 07/15/19 07/16/19 19:00 07:00 Intake Total 1751 ml 895 ml Output Total 1850 ml 1345 ml Balance -99 ml -450 ml Intake Free Water 200 ml 100 ml IV Total 1056 ml 300 ml Tube Feeding 495 ml 495 ml Output Urine Total 1850 ml 1345 ml # Voids 6 Height (Feet): 5 Height (Inches): 3.00 Weight (Pounds): 170 Objective WDWN AA woman NCAT (+) trach Coarse BS RR abd soft, (+) GT no edema Elisabeth Sommers MD Jul 16, 2019 07:47
[2019-07-16 08:00] VITALS: BP 130/77
[2019-07-16] MEDS: Magnesium Oxide 400mg tab NG SCH ×3 (09:06→18:27)
[2019-07-16] MEDS: Thiamine HCl 100 MG in D5W 55 ML IVPB SCH (09:06)
[2019-07-16] MEDS: Bactrim Susp 20ml NG SCH ×2 (09:06→21:15)
--- NOTE | 2019-07-16 10:21 | General Progress Note ---
Assessment/Plan Problem List: (1) Tracheostomy hemorrhage ICD Codes: J95.01 - Hemorrhage from tracheostomy stoma SNOMED: 52811952 (2) Tracheostomy complication ICD Codes: J95.00 - Unspecified tracheostomy complication SNOMED: 88035704 (3) Cocaine abuse ICD Codes: F14.10 - Cocaine abuse, uncomplicated SNOMED: 87114262 (4) Angioedema ICD Codes: T78.3XXA - Angioneurotic edema, initial encounter SNOMED: 37678962 Qualifiers: Qualified Codes: T78.3XXA - Angioneurotic edema, initial encounter (5) Hypertension ICD Codes: I10 - Essential (primary) hypertension SNOMED: 35258177 Qualifiers: Qualified Codes: I10 - Essential (primary) hypertension Status: progressing Assessment/Plan: trach care resp care suctioning as needed monitor labs trend wbc pain rx wean sedation anxiolytics as needed gt feeds barium swallow Subjective ROS Limited/Unobtainable: No Constitutional: Reports: malaise, weakness HEENT: Reports: no symptoms Cardiovascular: Reports: no symptoms Respiratory: Reports: cough, shortness of breath Gastrointestinal/Abdominal: Reports: difficulty swallowing Genitourinary: Reports: no symptoms Neurologic/Psychiatric: Reports: anxiety Endocrine: Reports: no symptoms Hematologic/Lymphatic: Reports: anemia Allergies: Coded Allergies: No Known Allergies (Unverified , 06/29/19) All Systems: reviewed and negative except above Subjective no complaints. minimal cough. no fever or chills. tolerating feeds. no cp/sob. Objective Last 24 Hour Vital Signs Date Time Temp Pulse Resp B/P (MAP) Pulse Ox O2 Delivery O2 Flow Rate FiO2 07/16/19 08:00 98.4 73 23 130/77 (94) 99 07/16/19 08:00 61 07/16/19 08:00 8.0 28 07/16/19 07:41 62 14 97 T-Piece 6.0 28 07/16/19 07:41 97 T-Piece 6.0 28 07/16/19 04:00 68 07/16/19 04:00 97.7 63 20 136/85 (102) 100 07/16/19 04:00 T-piece 28.0 07/16/19 04:00 8.0 28 07/16/19 01:12 98 T-Piece 6.0 28 07/16/19 00:00 8.0 28 07/16/19 00:00 60 07/16/19 00:00 97.3 60 20 136/79 (98) 100 07/16/19 00:00 T-piece 28.0 07/15/19 20:00 97.7 60 20 138/84 (102) 100 07/15/19 20:00 61 07/15/19 20:00 8.0 28 07/15/19 20:00 T-piece 28.0 07/15/19 19:47 98 T-Piece 6.0 28 07/15/19 19:47 64 18 98 T-Piece 6.0 28 07/15/19 18:29 97.7 07/15/19 16:00 8.0 28 07/15/19 16:00 T-piece 28.0 07/15/19 16:00 97.7 60 18 121/77 (92) 100 07/15/19 16:00 62 07/15/19 12:49 98 T-Piece 6.0 28 07/15/19 12:00 60 07/15/19 12:00 T-piece 28.0 07/15/19 12:00 98.4 67 20 120/75 (90) 98 07/15/19 12:00 8.0 28 Intake and Output 07/15/19 07/16/19 19:00 07:00 Intake Total 1751 ml 940 ml Output Total 1850 ml 1345 ml Balance -99 ml -405 ml Intake Free Water 200 ml 100 ml IV Total 1056 ml 300 ml Tube Feeding 495 ml 540 ml Output Urine Total 1850 ml 1345 ml # Voids 7 Height (Feet): 5 Height (Inches): 3.00 Weight (Pounds): 170 Objective General Appearance: WD/WN, alert Neck: supple, other - trach midline. off the vent Cardiovascular: normal rate, regular rhythm Respiratory/Chest: chest wall non-tender, lungs clear, normal breath sounds, no respiratory distress Abdomen: normal bowel sounds, non tender, soft, no organomegaly Edema: no edema noted Arm (L), no edema noted Arm (R), no edema noted Leg (L), no edema noted Leg (R), no edema noted Pedal (L), no edema noted Pedal (R), no edema noted Generalized Danis Markham MD Jul 16, 2019 10:21
--- NOTE | 2019-07-16 10:47 | Infectious Diseases Prog Note ---
"Assessment/Plan Assessment/Plan antibiotics : bactrim A 1. leucocytosis resolved 2. angioedema 3. respiratory failure s/p emergent tracheostomy 4. HIV, cd4 96 5. renal failure improving 5. MRSA | proteus pneumonia s/p rx P 1. continue bactrim 2. will follow up cultures Subjective ROS Limited/Unobtainable: Yes Allergies: Coded Allergies: No Known Allergies (Unverified , 06/29/19) Objective Vital Signs Last 24 Hour Vital Signs Date Time Temp Pulse Resp B/P (MAP) Pulse Ox O2 Delivery O2 Flow Rate FiO2 07/16/19 08:00 98.4 73 23 130/77 (94) 99 07/16/19 08:00 61 07/16/19 08:00 8.0 28 07/16/19 07:41 62 14 97 T-Piece 6.0 28 07/16/19 07:41 97 T-Piece 6.0 28 07/16/19 04:00 68 07/16/19 04:00 97.7 63 20 136/85 (102) 100 07/16/19 04:00 T-piece 28.0 07/16/19 04:00 8.0 28 07/16/19 01:12 98 T-Piece 6.0 28 07/16/19 00:00 8.0 28 07/16/19 00:00 60 07/16/19 00:00 97.3 60 20 136/79 (98) 100 07/16/19 00:00 T-piece 28.0 07/15/19 20:00 97.7 60 20 138/84 (102) 100 07/15/19 20:00 61 07/15/19 20:00 8.0 28 07/15/19 20:00 T-piece 28.0 07/15/19 19:47 98 T-Piece 6.0 28 07/15/19 19:47 64 18 98 T-Piece 6.0 28 07/15/19 18:29 97.7 07/15/19 16:00 8.0 28 07/15/19 16:00 T-piece 28.0 07/15/19 16:00 97.7 60 18 121/77 (92) 100 07/15/19 16:00 62 07/15/19 12:49 98 T-Piece 6.0 28 07/15/19 12:00 60 07/15/19 12:00 T-piece 28.0 07/15/19 12:00 98.4 67 20 120/75 (90) 98 07/15/19 12:00 8.0 28 Height (Feet): 5 Height (Inches): 3.00 Weight (Pounds): 170 HEENT: status post trach Respiratory/Chest: lungs clear Cardiovascular: normal rate, regular rhythm, no gallop/murmur Abdomen: soft, non tender, other - GT Extremities: no edema Microbiology Date/Time Source Procedure Growth Status 07/15/19 11:00 Rectum Received Current Medications Medications (Trade) Dose Ordered Sig/Dmitri Route PRN Reason Start Time Stop Time Status Last Admin Dose Admin Acetaminophen (Tylenol) 650 mg Q4H PRN NG Mild Pain/fever 07/13/19 06:00 08/09/19 05:59 07/13/19 20:44 Acetaminophen (Tylenol) 650 mg Q4H PRN RECTAL FEVER 07/13/19 06:00 07/29/19 05:59 Clonidine HCl (Catapres TTS-1) 1 patch QWEEK TDERMAL 07/18/19 15:00 08/03/19 14:59 Dextrose (Dextrose 50%) 25 ml Q30M PRN IV Hypoglycemia 07/13/19 06:30 07/30/19 14:59 Dextrose (Dextrose 50%) 50 ml Q30M PRN IV Hypoglycemia 07/13/19 06:30 07/30/19 14:59 Diphenhydramine HCl (Benadryl) 25 mg Q6H PRN IVP Muscle Spasm 07/13/19 06:00 07/29/19 05:59 07/16/19 09:05 Epoetin Eric (Epoetin Eric(ESRD on dialysis)) 8,000 unit MON-WED-FRI SUBQ 07/15/19 21:00 07/31/19 20:59 07/15/19 21:15 Insulin Aspart (NovoLOG) BEFORE MEALS AND HS SUBQ 07/13/19 06:30 07/30/19 16:29 07/15/19 12:48 Magnesium Oxide (Mag-Ox 400mg) 400 mg THREE TIMES A DAY NG 07/13/19 09:00 08/06/19 12:59 07/16/19 09:06 Metoclopramide HCl (Reglan) 10 mg Q6H PRN IVP Nausea & Vomiting 07/13/19 06:00 07/29/19 05:59 Mirtazapine (Remeron) 7.5 mg BEDTIME ORAL 07/13/19 21:00 08/11/19 00:00 07/15/19 21:12 Ondansetron HCl (Zofran) 4 mg Q6H PRN IVP Nausea & Vomiting 07/13/19 06:00 07/29/19 05:59 Prednisone (predniSONE) 10 mg DAILY ORAL 07/16/19 09:00 08/15/19 08:59 07/16/19 09:06 Thiamine HCl 100 mg/Dextrose 56 ml @ 112 mls/hr DAILY IVPB 07/13/19 09:00 08/12/19 08:59 07/16/19 09:06 Trimethoprim/ Sulfamethoxazole (Bactrim-DS) 20 ml EVERY 12 HOURS NG 07/13/19 09:00 07/18/19 11:34 07/16/19 09:06 Robert Adams MD Jul 16, 2019 10:46"
--- NOTE | 2019-07-16 10:59 | Nephrology Progress Note ---
Assessment/Plan Problem List: (1) Cocaine abuse (2) Angioedema (3) Hypertension (4) Tracheostomy hemorrhage (5) JUANITA (acute kidney injury) Plan CBC, BMP today and tomorrow Abx per ID Contact isolation. Continue to monitor off ventilator. Will continue to monitor renal function and respond accordingly . Use Peg for continued feeding, per audio specialist orders. Subjective Constitutional: Reports: no symptoms HEENT: Reports: no symptoms Genitourinary: Reports: no symptoms Neurologic/Psychiatric: Reports: no symptoms Subjective Pt reports abdominal pain. Objective Objective Last 24 Hour Vital Signs Date Time Temp Pulse Resp B/P (MAP) Pulse Ox O2 Delivery O2 Flow Rate FiO2 07/16/19 08:00 98.4 73 23 130/77 (94) 99 07/16/19 08:00 61 07/16/19 08:00 8.0 28 07/16/19 07:41 62 14 97 T-Piece 6.0 28 07/16/19 07:41 97 T-Piece 6.0 28 07/16/19 04:00 68 07/16/19 04:00 97.7 63 20 136/85 (102) 100 07/16/19 04:00 T-piece 28.0 07/16/19 04:00 8.0 28 07/16/19 01:12 98 T-Piece 6.0 28 07/16/19 00:00 8.0 28 07/16/19 00:00 60 07/16/19 00:00 97.3 60 20 136/79 (98) 100 07/16/19 00:00 T-piece 28.0 07/15/19 20:00 97.7 60 20 138/84 (102) 100 07/15/19 20:00 61 07/15/19 20:00 8.0 28 07/15/19 20:00 T-piece 28.0 07/15/19 19:47 98 T-Piece 6.0 28 07/15/19 19:47 64 18 98 T-Piece 6.0 28 07/15/19 18:29 97.7 07/15/19 16:00 8.0 28 07/15/19 16:00 T-piece 28.0 07/15/19 16:00 97.7 60 18 121/77 (92) 100 07/15/19 16:00 62 07/15/19 12:49 98 T-Piece 6.0 28 07/15/19 12:00 60 07/15/19 12:00 T-piece 28.0 07/15/19 12:00 98.4 67 20 120/75 (90) 98 07/15/19 12:00 8.0 28 Intake and Output 07/15/19 07/16/19 19:00 07:00 Intake Total 1751 ml 940 ml Output Total 1850 ml 1345 ml Balance -99 ml -405 ml Intake Free Water 200 ml 100 ml IV Total 1056 ml 300 ml Tube Feeding 495 ml 540 ml Output Urine Total 1850 ml 1345 ml # Voids 7 Height (Feet): 5 Height (Inches): 3.00 Weight (Pounds): 170 General Appearance: WD/WN, no apparent distress, alert EENT: PERRL/EOMI Neck: normal alignment Cardiovascular: normal peripheral pulses, normal rate, regular rhythm, no JVD Respiratory/Chest: lungs clear, normal breath sounds Abdomen: normal bowel sounds, guarding, tender Extremities: non-tender, normal inspection Neurologic: alert, oriented x 3, responsive, normal mood/affect Objective Ms. Burnett appears calm at this time. She is observed laying in bed, awake/alert/ NAD She endorses abdominal pain and is guarding her LUQ. Now: Clear trach/Clear lungs/no trach sounds noted She continues to be producing clear yellow urine Neuro: A&Ox4, [employer] intact CVS: RRR Lungs:clear, trached/no bleeding or drainage noted to gauze under cuff HEENT: head atraumatic, PERRLA, nose/mouth pink-moist mucosa, tracheostomy clean /no drainage noted to gauze Abd: TTP, BS +, peg placed and in use for feeding GI/: patel, BS+4Q Extremities: no edema, pop/pedal 2+ (sequentials in place and on) Skin: normal for ethnicity, no decub ulcers Sharee Alvarez N.P. Jul 16, 2019 10:59
--- NOTE | 2019-07-16 11:17 | Cardiac Electrophysiology PN ---
Assessment/Plan Assessment/Plan 1. Angioedema, s/p emergency tracheostomy Off the vent . Off the T tube intermittently 2. Dysphagia, S/P PEG 3. Hypertension. On Clonidine patch weekly 4. Cocaine abuse 5. ARF. Last HD and no further. 6. Anemia 7. HIV positive. FU ID DW RN Subjective Subjective On T tube via tracheostomy .In SR. Objective Last 24 Hour Vital Signs Date Time Temp Pulse Resp B/P (MAP) Pulse Ox O2 Delivery O2 Flow Rate FiO2 07/16/19 08:00 98.4 73 23 130/77 (94) 99 07/16/19 08:00 T-piece 28.0 07/16/19 08:00 61 07/16/19 08:00 8.0 28 07/16/19 07:41 62 14 97 T-Piece 6.0 28 07/16/19 07:41 97 T-Piece 6.0 28 07/16/19 04:00 68 07/16/19 04:00 97.7 63 20 136/85 (102) 100 07/16/19 04:00 T-piece 28.0 07/16/19 04:00 8.0 28 07/16/19 01:12 98 T-Piece 6.0 28 07/16/19 00:00 8.0 28 07/16/19 00:00 60 07/16/19 00:00 97.3 60 20 136/79 (98) 100 07/16/19 00:00 T-piece 28.0 07/15/19 20:00 97.7 60 20 138/84 (102) 100 07/15/19 20:00 61 07/15/19 20:00 8.0 28 07/15/19 20:00 T-piece 28.0 07/15/19 19:47 98 T-Piece 6.0 28 07/15/19 19:47 64 18 98 T-Piece 6.0 07/15/19 18:29 97.7 07/15/19 16:00 8.0 28 07/15/19 16:00 T-piece 28.0 07/15/19 16:00 97.7 60 18 121/77 (92) 100 07/15/19 16:00 62 07/15/19 12:49 98 T-Piece 6.0 07/15/19 12:00 60 07/15/19 12:00 T-piece 28.0 07/15/19 12:00 98.4 67 20 120/75 (90) 98 07/15/19 12:00 8.0 28 Intake and Output 07/15/19 07/16/19 19:00 07:00 Intake Total 1751 ml 940 ml Output Total 1850 ml 1345 ml Balance -99 ml -405 ml Intake Free Water 200 ml 100 ml IV Total 1056 ml 300 ml Tube Feeding 495 ml 540 ml Output Urine Total 1850 ml 1345 ml # Voids 7 Microbiology Date/Time Source Procedure Growth Status 07/15/19 11:00 Rectum Received Objective HEENT: Tracheostomy in place LUNGS: Coarse rhonchi CVS: RRR ABDOMEN: Obese. PEG in place EXT: No edema. Right arm PICC line in place Giles Rodarte MD Jul 16, 2019 11:17
[2019-07-16] MEDS ORDERED: Docusate 100mg tablet ORAL SCH (11:30)
[2019-07-16 12:00] VITALS: BP 137/82
[2019-07-16] MEDS ORDERED: HYDROcodone/Acetamin 5/325 tab ORAL PRN (13:30)
--- NOTE | 2019-07-16 13:35 | Hematology/Onc Progress Note ---
Assessment/Plan Assessment/Plan A/R # Anemia of chronic disease due to underlying chronic medical issues, multifactorial --> Anemia workup has been ordered and c/w acd --> No evidence of hemolysis is noted, peripheral smear has been reviewed. --> Hgb goal >8. Transfuse prn. --> Epogen indicated given hiv --> Medications have been reviewed --> low threshold for gi evaluation in case has occult + --> hgb trend 8.7--> 9-->10.9-->9.7->8.6-->9.6-->8.8-->10.3->9.3 --> b12, folic acid, tsh reviewed # Leukocytosis --> wbc trend 17-->15-->14k->16-->19.4-->15-->15.9-->13.6-->17.1-->12.1-->8.6 --> steriods for angioedema # Thrombocytopenia - potential causes multifactorial, evaluate liver and viral etiologies to begin, also could be related to underlying medications patient has received. 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 Significance/etiology uncertain. This can be seen in chronic pancreatitis as well as ductectatic neoplasm--> once more stable get Ct with iv cont --> DIC panel has been reviewed, NEgative --> Peripheral smear ordered to evaluate for blasts /schistocytes and none noted --> abx and other meds have been reviewed --> ok for ppx if plt >50k w/ either heparin or lovenox --> Transfuse if Plt < 20k and fever, or if Plt < 10k without fever --> plt trend 200-->87-->60-->38k-> 50k-->91k-->110k-->138k-->184k->207k-->241k- ->221k -> [id number] ordered -- > is neg --> ID eval and care per id # Angioedeama --> ffp, steriods given --> s/p trach # Resp failure s/p trach --> to vent # Severe Hypotension --> is now off both pressors. # Hx of Hypertension # Cocaine abuse # ARF on HD now --> 07/02 --> now off hd # HIV++ --> as per id The timing of this note does not necessarily reflect the time of the patient was seen. GREATLY APPRECIATE CONSULTATION. Subjective Constitutional: Denies: no symptoms, chills, fever, malaise, weakness, other HEENT: Denies: no symptoms, eye pain, blurred vision, tearing, double vision, ear pain, ear discharge, nose pain, nose congestion, throat pain, throat swelling, mouth pain, mouth swelling, other Cardiovascular: Denies: no symptoms, chest pain, edema, irregular heart rate, lightheadedness, palpitations, syncope, other Respiratory: Denies: no symptoms, cough, shortness of breath, SOB with excertion, SOB at rest, sputum, wheezing, other Genitourinary: Denies: no symptoms, burning, discharge, frequency, flank pain, hematuria, incontinence, pain, urgency, other Hematologic/Lymphatic: Denies: no symptoms, anemia, easy bleeding, easy bruising, adenopathy, other Allergies: Coded Allergies: LISINOPRIL (Unverified Allergy, Severe, Angioedema, 07/16/19) Per pt's girlfriend (Melody Easley) and patient- both state the pt took lisinopril (belonged to [facility]) twice before and had mild facial swelling; however when the pt took it for the 3rd time, both her face and tongue were swollen and she was admitted here for Angioedema. Subjective 07/02: remains in the icu, onpressors and epogen, hgb stable 07/03: in icu, no events, on vent, no fever or chills, denies pain or sob 07/04: s/p vent/trach, on fentanyl gtt, id made aware of HIV++ 07/05: sedated, trach, off abx, labs reviewed 07/07: weaning off pressors, no fevers or chills, is on pcp ppx 07/08: weaning off vent, no bleeding, htn better on clonidine coughing intermittently 8/28: getting 1 unit prnc, weaning vent when possible 07/11: off the vent, on ivf, no complaints. on abx, labs noted, wbc trending up 07/12: vs stable, no pain or discomfort, on abx, 07/13: remains on peg tube feeds, on t-piece as well 8l 07/15: no bleeding, continue on meds, on tube feeds 07/16: on feeds, on abx, no bleeding, labs noted Objective Objective Current Medications Medications (Trade) Dose Ordered Sig/Dmitri Route PRN Reason Start Time Stop Time Status Last Admin Dose Admin Acetaminophen (Tylenol) 650 mg Q4H PRN NG Mild Pain/fever 07/13/19 06:00 08/09/19 05:59 07/13/19 20:44 Acetaminophen (Tylenol) 650 mg Q4H PRN RECTAL FEVER 07/13/19 06:00 07/29/19 05:59 Acetaminophen/ Hydrocodone Bitart (Center 5/325) 1 tab Q4H PRN ORAL Mild Pain (Pain Scale 1-3) 07/16/19 13:30 07/23/19 13:29 Acetaminophen/ Hydrocodone Bitart (Center 5/325) 2 tab Q4H PRN ORAL Moderate Pain (Pain Scale 4-6) 07/16/19 13:30 07/23/19 13:29 Clonidine HCl (Catapres TTS-1) 1 patch QWEEK TDERMAL 07/18/19 15:00 08/03/19 14:59 Dextrose (Dextrose 50%) 25 ml Q30M PRN IV Hypoglycemia 07/13/19 06:30 07/30/19 14:59 Dextrose (Dextrose 50%) 50 ml Q30M PRN IV Hypoglycemia 07/13/19 06:30 07/30/19 14:59 Diphenhydramine HCl (Benadryl) 25 mg Q6H PRN IVP Muscle Spasm 07/13/19 06:00 07/29/19 05:59 07/16/19 09:05 Epoetin Eric (Epoetin Eric(ESRD on dialysis)) 8,000 unit MON-WED-FRI SUBQ 07/15/19 21:00 07/31/19 20:59 07/15/19 21:15 Insulin Aspart (NovoLOG) BEFORE MEALS AND HS SUBQ 07/13/19 06:30 07/30/19 16:29 07/15/19 12:48 Magnesium Oxide (Mag-Ox 400mg) 400 mg THREE TIMES A DAY NG 07/13/19 09:00 08/06/19 12:59 07/16/19 12:06 Metoclopramide HCl (Reglan) 10 mg Q6H PRN IVP Nausea & Vomiting 07/13/19 06:00 07/29/19 05:59 Mirtazapine (Remeron) 7.5 mg BEDTIME ORAL 07/13/19 21:00 08/11/19 00:00 07/15/19 21:12 Ondansetron HCl (Zofran) 4 mg Q6H PRN IVP Nausea & Vomiting 07/13/19 06:00 07/29/19 05:59 Prednisone (predniSONE) 10 mg DAILY ORAL 07/16/19 09:00 08/15/19 08:59 07/16/19 09:06 Thiamine HCl 100 mg/Dextrose 56 ml @ 112 mls/hr DAILY IVPB 07/13/19 09:00 08/12/19 08:59 07/16/19 09:06 Trimethoprim/ Sulfamethoxazole (Bactrim-DS) 20 ml EVERY 12 HOURS NG 07/13/19 09:00 07/18/19 11:34 07/16/19 09:06 Last 24 Hour Vital Signs Date Time Temp Pulse Resp B/P (MAP) Pulse Ox O2 Delivery O2 Flow Rate FiO2 07/16/19 12:00 70 07/16/19 12:00 T-piece 28.0 07/16/19 12:00 8.0 28 07/16/19 12:00 98.5 22 137/82 (100) 98 07/16/19 08:00 98.4 73 23 130/77 (94) 99 07/16/19 08:00 T-piece 28.0 07/16/19 08:00 61 07/16/19 08:00 8.0 28 07/16/19 07:41 62 14 97 T-Piece 6.0 28 07/16/19 07:41 97 T-Piece 6.0 28 07/16/19 04:00 68 07/16/19 04:00 97.7 63 20 136/85 (102) 100 07/16/19 04:00 T-piece 28.0 07/16/19 04:00 8.0 28 07/16/19 01:12 98 T-Piece 6.0 28 07/16/19 00:00 8.0 28 07/16/19 00:00 60 07/16/19 00:00 97.3 60 20 136/79 (98) 100 07/16/19 00:00 T-piece 28.0 07/15/19 20:00 97.7 60 20 138/84 (102) 100 07/15/19 20:00 61 07/15/19 20:00 8.0 28 07/15/19 20:00 T-piece 28.0 07/15/19 19:47 98 T-Piece 6.0 07/15/19 19:47 64 18 98 T-Piece 6.0 07/15/19 18:29 97.7 07/15/19 16:00 8.0 28 07/15/19 16:00 T-piece 28.0 07/15/19 16:00 97.7 60 18 121/77 (92) 100 07/15/19 16:00 62 07/15/19 12:49 98 T-Piece 6.0 07/15/19 12:00 60 07/15/19 12:00 T-piece 28.0 07/15/19 12:00 98.4 67 20 120/75 (90) 98 07/15/19 12:00 8.0 07/15/19 08:00 T-piece 28.0 07/15/19 08:00 98.1 67 20 120/90 (100) 98 07/15/19 08:00 8.0 07/15/19 08:00 59 07/15/19 06:59 56 18 97 T-Piece 6.0 07/15/19 06:59 97 T-Piece 6.0 07/15/19 04:00 T-piece 28.0 07/15/19 04:00 97.5 54 20 122/77 (92) 98 07/15/19 04:00 8.0 07/15/19 03:54 55 07/15/19 03:42 98 T-Piece 6.0 07/15/19 00:00 97.0 57 20 127/77 (94) 100 07/15/19 00:00 T-piece 28.0 07/14/19 23:30 58 07/14/19 20:00 T-piece 28.0 07/14/19 20:00 98.1 60 24 138/87 (104) 100 07/14/19 20:00 8.0 28 07/14/19 19:37 67 07/14/19 19:35 68 18 98 T-Piece 6.0 28 07/14/19 19:35 98 T-Piece 6.0 28 07/14/19 16:54 67 07/14/19 16:00 T-piece 28.0 07/14/19 16:00 8.0 28 07/14/19 15:53 97.7 66 20 132/74 (93) 98 Intake and Output 07/15/19 07/16/19 19:00 07:00 Intake Total 1751 ml 940 ml Output Total 1850 ml 1345 ml Balance -99 ml -405 ml Intake Free Water 200 ml 100 ml IV Total 1056 ml 300 ml Tube Feeding 495 ml 540 ml Output Urine Total 1850 ml 1345 ml # Voids 7 Labs Test 07/14/19 03:48 07/15/19 03:35 White Blood Count 8.0 K/UL (4.8-10.8) 8.6 K/UL (4.8-10.8) Red Blood Count 3.08 M/UL (4.20-5.40) 3.06 M/UL (4.20-5.40) Hemoglobin 9.5 G/DL (12.0-16.0) 9.3 G/DL (12.0-16.0) Hematocrit 29.1 % (37.0-47.0) 29.0 % (37.0-47.0) Mean Corpuscular Volume 95 FL (80-99) 95 FL (80-99) Mean Corpuscular Hemoglobin 30.8 PG (27.0-31.0) 30.4 PG (27.0-31.0) Mean Corpuscular Hemoglobin Concent 32.5 G/DL (32.0-36.0) 32.1 G/DL (32.0-36.0) Red Cell Distribution Width 14.1 % (11.6-14.8) 14.1 % (11.6-14.8) Platelet Count 243 K/UL (150-450) 227 K/UL (150-450) Mean Platelet Volume 7.3 FL (6.5-10.1) 7.3 FL (6.5-10.1) Neutrophils (%) (Auto) 84.7 % (45.0-75.0) 78.7 % (45.0-75.0) Lymphocytes (%) (Auto) 6.9 % (20.0-45.0) 11.5 % (20.0-45.0) Monocytes (%) (Auto) 6.5 % (1.0-10.0) 7.9 % (1.0-10.0) Eosinophils (%) (Auto) 1.4 % (0.0-3.0) 1.2 % (0.0-3.0) Basophils (%) (Auto) 0.5 % (0.0-2.0) 0.7 % (0.0-2.0) Sodium Level 141 MMOL/L (136-145) 144 MMOL/L (136-145) Potassium Level 4.0 MMOL/L (3.5-5.1) 4.2 MMOL/L (3.5-5.1) Chloride Level 109 MMOL/L (98-107) 112 MMOL/L (98-107) Carbon Dioxide Level 24 MMOL/L (21-32) 23 MMOL/L (21-32) Anion Gap 8 mmol/L (5-15) 9 mmol/L (5-15) Blood Urea Nitrogen 16 mg/dL (7-18) 17 mg/dL (7-18) Creatinine 1.6 MG/DL (0.55-1.30) 1.5 MG/DL (0.55-1.30) Estimat Glomerular Filtration Rate 39.9 mL/min (>60) 42.9 mL/min (>60) Glucose Level 89 MG/DL (74-106) 95 MG/DL (74-106) Calcium Level 8.3 MG/DL (8.5-10.1) 8.4 MG/DL (8.5-10.1) Height (Feet): 5 Height (Inches): 3.00 Weight (Pounds): 170 Objective Physical Exam: Vitals: reviewed General Appearance: NAD HEENT: normocephalic, atraumatic ++ trach 9L Neck: non-tender, normal alignment Respiratory/Chest: normal breath sounds bilaterally Cardiovascular/Chest: normal peripheral pulses, normal rate Abdomen: normal bowel sounds, soft, nontender Extremities: normal range of motion Jordan Nguyen MD Jul 16, 2019 13:35
[2019-07-16] MEDS: HYDROcodone/Acetamin 5/325 tab ORAL PRN ×2 (14:10→21:16)
[2019-07-16 16:00] VITALS: BP 140/86
--- NOTE | 2019-07-16 18:23 | Surgery Progress Note ---
Surgery Progress Note Subjective Additional Comments no acute events comfortable exam stable labs okay Objective Last 24 Hour Vital Signs Date Time Temp Pulse Resp B/P (MAP) Pulse Ox O2 Delivery O2 Flow Rate FiO2 07/16/19 16:00 67 07/16/19 16:00 T-piece 28.0 07/16/19 16:00 8.0 28 07/16/19 16:00 98.7 69 21 140/86 (104) 98 07/16/19 14:00 98 T-Piece 6.0 28 07/16/19 12:00 70 07/16/19 12:00 T-piece 28.0 07/16/19 12:00 8.0 28 07/16/19 12:00 98.5 64 22 137/82 (100) 98 07/16/19 08:00 98.4 73 23 130/77 (94) 99 07/16/19 08:00 T-piece 28.0 07/16/19 08:00 61 07/16/19 08:00 8.0 28 07/16/19 07:41 62 14 97 T-Piece 6.0 28 07/16/19 07:41 97 T-Piece 6.0 28 07/16/19 04:00 68 07/16/19 04:00 97.7 63 20 136/85 (102) 100 07/16/19 04:00 T-piece 28.0 07/16/19 04:00 8.0 28 07/16/19 01:12 98 T-Piece 6.0 28 07/16/19 00:00 8.0 28 07/16/19 00:00 60 07/16/19 00:00 97.3 60 20 136/79 (98) 100 07/16/19 00:00 T-piece 28.0 07/15/19 20:00 97.7 60 20 138/84 (102) 100 07/15/19 20:00 61 07/15/19 20:00 8.0 28 07/15/19 20:00 T-piece 28.0 07/15/19 19:47 98 T-Piece 6.0 28 07/15/19 19:47 64 18 98 T-Piece 6.0 28 07/15/19 18:29 97.7 I&O Intake and Output 07/15/19 07/16/19 19:00 07:00 Intake Total 1751 ml 940 ml Output Total 1850 ml 1345 ml Balance -99 ml -405 ml Intake Free Water 200 ml 100 ml IV Total 1056 ml 300 ml Tube Feeding 495 ml 540 ml Output Urine Total 1850 ml 1345 ml # Voids 7 Dressing: dry Wound: clean Cardiovascular: RSR Respiratory: clear, other Abdomen: flat, non-tender, present bowel sounds, other Extremities: no cyanosis, other Plan Problems: (1) Angioedema Assessment & Plan: airway trach as per reports trach stable currently sutures in place dressings changed HD line in place and noted off vent will follow with recs thank you (2) Tracheostomy hemorrhage Assessment & Plan: stable dressings dry will monitor doing well may need revision given mucus leak (3) Tracheostomy complication Assessment & Plan: Much less leakage around trach site. Wound clean and dry now. No signs of active infection. Mucus decrease. Will unlikely need revision at this point. currently improved less mucus wound harness cleaner George Cavazos Jul 16, 2019 18:23
[2019-07-16 20:00] VITALS: BP 137/74
[2019-07-17] VITALS: BP 110/71
--- NOTE | 2019-07-17 01:45 | Progress Note ---
DATE: 07/16/2019 SUBJECTIVE: The patient is admitted to the [facility] unit, in bed, feeling better, improving, and still has difficulty sleeping, worried about the HIV . The patient stated that she has not been able to sleep well. She is doing better on Remeron; however, still not a good night sleep. MENTAL STATUS EXAMINATION: The patient is alert, oriented times self, place, situation, and date. Mood is anxious. Affect is constricted. Congruent mood. Thought process is linear and goal-oriented. Thought content, no suicidal or homicidal ideations. Cognition is intact. ASSESSMENT: 1. Anxiety disorder. 2. Insomnia. 3. Adjustment disorder. PLAN: 1. We will increase the Remeron to 15 mg at bedtime. 2. Provide the patient with reality orientation and supportive therapy. Caden Ferreira M.D. DR: RALPH JOB#: [id number] CC:
[2019-07-17 04:00] VITALS: BP 144/78
[2019-07-17 04:52] LABS: BASOPHILS % (AUTO) 1.2 % (0.0-2.0); EOSINOPHILS % (AUTO) 3.5 % (0.0-3.0); HEMATOCRIT 31.3 % (37.0-47.0); LYMPHOCYTES % (AUTO) 12.5 % (20.0-45.0); MEAN CORPUSCULAR VOLUME 94 FL (80-99); MONOCYTES % (AUTO) 8.1 % (1.0-10.0); NEUTROPHILS % (AUTO) 74.7 % (45.0-75.0); PLATELET COUNT 206 K/UL (150-450); RED BLOOD COUNT 3.35 M/UL (4.20-5.40); RED CELL DISTRIBUTION WIDTH 14.4 % (11.6-14.8); WHITE BLOOD COUNT 5.8 K/UL (4.8-10.8)
[2019-07-17 05:17] LABS: ALANINE AMINOTRANSFERASE 25 U/L (12-78); ALBUMIN 2.3 G/DL (3.4-5.0); ALBUMIN/GLOBULIN RATIO 0.6 (1.0-2.7); ALKALINE PHOSPHATASE 71 U/L (46-116); ANION GAP 10 mmol/L (5-15); ASPARTATE AMINO TRANSFERASE 16 U/L (15-37); BILIRUBIN,TOTAL 0.2 MG/DL (0.2-1.0); BLOOD UREA NITROGEN 17 mg/dL (7-18); CALCIUM 9.1 MG/DL (8.5-10.1); CARBON DIOXIDE 24 MMOL/L (21-32); CHLORIDE 111 MMOL/L (98-107); CREATININE 1.4 MG/DL (0.55-1.30); POTASSIUM 4.3 MMOL/L (3.5-5.1); SODIUM 145 MMOL/L (136-145)
[2019-07-17] MEDS: NovoLOG Insulin Flexpen SUBQ SCH ×3 (06:30→16:30)
[2019-07-17 08:00] VITALS: BP 150/83
[2019-07-17] MEDS ORDERED: Thiamine HCl 100mg/ml 2 ml Inj ONE (08:00)
[2019-07-17] MEDS: Magnesium Oxide 400mg tab NG SCH ×3 (08:06→17:48)
[2019-07-17] MEDS: HYDROcodone/Acetamin 5/325 tab ORAL PRN ×2 (08:07→16:12)
[2019-07-17] MEDS: Bactrim Susp 20ml NG SCH (08:07)
--- NOTE | 2019-07-17 08:07 | General Progress Note ---
Assessment/Plan Problem List: (1) Tracheostomy hemorrhage ICD Codes: J95.01 - Hemorrhage from tracheostomy stoma SNOMED: 48710907 (2) Tracheostomy complication ICD Codes: J95.00 - Unspecified tracheostomy complication SNOMED: 10916454 (3) Cocaine abuse ICD Codes: F14.10 - Cocaine abuse, uncomplicated SNOMED: 27987633 (4) Angioedema ICD Codes: T78.3XXA - Angioneurotic edema, initial encounter SNOMED: 32570450 Qualifiers: Qualified Codes: T78.3XXA - Angioneurotic edema, initial encounter (5) Hypertension ICD Codes: I10 - Essential (primary) hypertension SNOMED: 47583215 Qualifiers: Qualified Codes: I10 - Essential (primary) hypertension Status: progressing Assessment/Plan: trach care resp care suctioning as needed monitor labs trend wbc pain rx wean sedation anxiolytics as needed gt feeds barium swallow today Subjective ROS Limited/Unobtainable: No Constitutional: Reports: weakness HEENT: Reports: no symptoms Cardiovascular: Reports: no symptoms Respiratory: Reports: cough Gastrointestinal/Abdominal: Reports: difficulty swallowing Genitourinary: Reports: no symptoms Neurologic/Psychiatric: Reports: anxiety, depressed Endocrine: Reports: no symptoms Hematologic/Lymphatic: Reports: anemia Allergies: Coded Allergies: LISINOPRIL (Unverified Allergy, Severe, Angioedema, 07/16/19) Per pt's girlfriend (Melody Easley) and patient- both state the pt took lisinopril (belonged to [facility]) twice before and had mild facial swelling; however when the pt took it for the 3rd time, both her face and tongue were swollen and she was admitted here for Angioedema. All Systems: reviewed and negative except above Subjective no events. no complaints. tolerating feeds, swallow study scheduled for today Objective Last 24 Hour Vital Signs Date Time Temp Pulse Resp B/P (MAP) Pulse Ox O2 Delivery O2 Flow Rate FiO2 07/17/19 07:04 63 18 98 T-Piece 6.0 28 07/17/19 07:04 98 T-Piece 6.0 28 07/17/19 04:00 8.0 28 07/17/19 04:00 T-piece 28.0 07/17/19 04:00 97.5 66 16 144/78 (100) 100 07/17/19 04:00 61 07/17/19 01:19 97 T-Piece 6.0 28 07/17/19 00:00 65 07/17/19 00:00 8.0 28 07/17/19 00:00 97.2 63 20 110/71 (84) 98 07/17/19 00:00 T-piece 28.0 07/16/19 20:00 8.0 28 07/16/19 20:00 T-piece 28.0 07/16/19 20:00 98.1 66 20 137/74 (95) 99 07/16/19 20:00 70 07/16/19 19:45 70 16 98 T-Piece 6.0 28 07/16/19 19:44 98 T-Piece 6.0 28 07/16/19 16:00 67 07/16/19 16:00 T-piece 28.0 07/16/19 16:00 8.0 28 07/16/19 16:00 98.7 69 21 140/86 (104) 98 07/16/19 14:00 98 T-Piece 6.0 28 07/16/19 12:00 70 07/16/19 12:00 T-piece 28.0 07/16/19 12:00 8.0 28 07/16/19 12:00 98.5 64 22 137/82 (100) 98 Intake and Output 07/16/19 07/17/19 18:59 06:59 Intake Total 906 ml 740 ml Balance 906 ml 740 ml Intake Free Water 100 ml 200 ml IV Total 266 ml Tube Feeding 540 ml 540 ml # Voids 7 Laboratory Tests 07/17/19 03:15: White Blood Count 5.8, Red Blood Count 3.35L, Hemoglobin 10.0L, Hematocrit 31.3L , Mean Corpuscular Volume 94, Mean Corpuscular Hemoglobin 29.9, Mean Corpuscular Hemoglobin Concent 31.9L, Red Cell Distribution Width 14.4, Platelet Count 206, Mean Platelet Volume 7.2, Neutrophils (%) (Auto) 74.7, Lymphocytes (%) (Auto) 12.5L, Monocytes (%) (Auto) 8.1, Eosinophils (%) (Auto) 3.5H, Basophils (%) (Auto) 1.2, Sodium Level 145, Potassium Level 4.3, Chloride Level 111H, Carbon Dioxide Level 24, Anion Gap 10, Blood Urea Nitrogen 17, Creatinine 1.4H, Estimat Glomerular Filtration Rate 46.5, Glucose Level 90, Calcium Level 9.1, Total Bilirubin 0.2, Aspartate Amino Transf (AST/SGOT) 16, Alanine Aminotransferase (ALT/SGPT) 25, Alkaline Phosphatase 71, Total Protein 5.9L, Albumin 2.3L, Globulin 3.6, Albumin/Globulin Ratio 0.6L Height (Feet): 5 Height (Inches): 3.00 Weight (Pounds): 166 Objective General Appearance: WD/WN, alert Neck: supple, other - trach midline. off the vent Cardiovascular: normal rate, regular rhythm Respiratory/Chest: chest wall non-tender, lungs clear, normal breath sounds, no respiratory distress Abdomen: normal bowel sounds, non tender, soft, no organomegaly Edema: no edema noted Arm (L), no edema noted Arm (R), no edema noted Leg (L), no edema noted Leg (R), no edema noted Pedal (L), no edema noted Pedal (R), no edema noted Generalized Danis Markham MD Jul 17, 2019 08:07
--- NOTE | 2019-07-17 08:48 | Pulmonolgy Critical Care Note ---
Critical Care - Asmt/Plan Assessment/Plan: Pulmonary CCM Progress Note Patient is a 59-year-old female admitted with acute airway compromise complicating Angioedema, she has a history of hypertension. Presented with a severe allergic reaction. She woke up 2 hours prior to arrival with her tongue being swollen. S/p 4 unit transfusion on day of admission - post OR was hypotensive - had EBL 2000ml, tolerating TC Oliguric, Renal following, renal function improving Allergies: No Known Allergies Past Medical History: Hypertension All Other Systems: negative except mentioned in HPI Physical Exam Vital signs noted, on TC via tracheostomy General Appearance: Interactive Head: normocephalic, atraumatic Eyes: bilateral eye PERRL, bilateral eye EOMI ENT: Mosit mm. tracheostomy site, no active bleeding Neck: swollen, no LN Respiratory: chest non-tender, lungs clear, normal breath sounds Cardiovascular: Normal HS1, HS2, regular rate, rhythm, no murmur Gastrointestinal: normal bowel sounds, non tender, no mass, no organomegaly, no bruit, non-distended Musculoskeletal: back normal, gait/station normal, normal range of motion Neurological: No focal signs, moving all limbs, PERRL Impression: Angioedema improved s/p Emergent Tracheostomy ARF improving Previous Hypertension Cocaine use previously Plan Renal following Cardiology following Wean as tolerated ISS Monitor labs PRN sedation SCD TC PPX Continue current management EKG: tachycardiac: NSR, no acute ST changes Chest X-Ray: no consolidation, no effusion, no pneumothorax, no acute cardiopulmonary disease, tracheostomy position appropriate Critical Care - Objective Last 24 Hour Vital Signs Date Time Temp Pulse Resp B/P (MAP) Pulse Ox O2 Delivery O2 Flow Rate FiO2 07/17/19 08:00 8.0 28 07/17/19 08:00 T-piece 28.0 07/17/19 07:04 63 18 98 T-Piece 6.0 28 07/17/19 07:04 98 T-Piece 6.0 28 07/17/19 04:00 8.0 28 07/17/19 04:00 T-piece 28.0 07/17/19 04:00 97.5 66 16 144/78 (100) 100 07/17/19 04:00 61 07/17/19 01:19 97 T-Piece 6.0 28 07/17/19 00:00 65 07/17/19 00:00 8.0 28 07/17/19 00:00 97.2 63 20 110/71 (84) 98 07/17/19 00:00 T-piece 28.0 07/16/19 20:00 8.0 28 07/16/19 20:00 T-piece 28.0 07/16/19 20:00 98.1 66 20 137/74 (95) 99 07/16/19 20:00 70 07/16/19 19:45 70 16 98 T-Piece 6.0 28 07/16/19 19:44 98 T-Piece 6.0 28 07/16/19 16:00 67 07/16/19 16:00 T-piece 28.0 07/16/19 16:00 8.0 28 07/16/19 16:00 98.7 69 21 140/86 (104) 98 07/16/19 14:00 98 T-Piece 6.0 28 07/16/19 12:00 70 07/16/19 12:00 T-piece 28.0 07/16/19 12:00 8.0 28 07/16/19 12:00 98.5 64 22 137/82 (100) 98 Micro: Microbiology Date/Time Source Procedure Growth Status 07/15/19 11:00 Rectum Received Accucheck: 110 Critical Care - Subjective ROS Limited/Unobtainable: No FI02: 28 Vent Support Breath Rate: 16 Vent Support Mode: AC Vent Tidal Volume: 550 Sputum Amount: Small PEEP: 5.0 PIP: 21 Tube Feeding Amount: 45 I&O: Intake and Output 07/16/19 07/17/19 18:59 06:59 Intake Total 906 ml 740 ml Balance 906 ml 740 ml Intake Free Water 100 ml 200 ml IV Total 266 ml Tube Feeding 540 ml 540 ml # Voids 7 Deangelo John MD Jul 17, 2019 08:48
[2019-07-17] MEDS: Thiamine HCl 100 MG in D5W 55 ML IVPB SCH (09:36)
[2019-07-17] MEDS: DiphenhydrAMINE 50mg/ml Inj IVP PRN ×2 (11:25→20:13)
[2019-07-17 12:00] VITALS: BP 122/78
--- NOTE | 2019-07-17 12:07 | Cardiac Electrophysiology PN ---
Assessment/Plan Assessment/Plan 1. Angioedema, s/p emergency tracheostomy Off the vent . Off the T tube intermittently. Trach is supposed to get capped today 2. Dysphagia, S/P PEG. Passed swallow eval. 3. Hypertension. On Clonidine patch weekly 4. Cocaine abuse 5. ARF. Last HD and no further. 6. Anemia 7. HIV positive. FU ID DW RN Subjective Subjective Tracheostomy is scheduled to get capped . Passed swallow eval. Objective Last 24 Hour Vital Signs Date Time Temp Pulse Resp B/P (MAP) Pulse Ox O2 Delivery O2 Flow Rate FiO2 07/17/19 08:00 98.3 63 20 150/83 (105) 98 07/17/19 08:00 59 07/17/19 08:00 8.0 28 07/17/19 08:00 T-piece 28.0 07/17/19 07:04 63 18 98 T-Piece 6.0 28 07/17/19 07:04 98 T-Piece 6.0 28 07/17/19 04:00 8.0 28 07/17/19 04:00 T-piece 28.0 07/17/19 04:00 97.5 66 16 144/78 (100) 100 07/17/19 04:00 61 07/17/19 01:19 97 T-Piece 6.0 28 07/17/19 00:00 65 07/17/19 00:00 8.0 28 07/17/19 00:00 97.2 63 20 110/71 (84) 98 07/17/19 00:00 T-piece 28.0 07/16/19 20:00 8.0 28 07/16/19 20:00 T-piece 28.0 07/16/19 20:00 98.1 66 20 137/74 (95) 99 07/16/19 20:00 70 07/16/19 19:45 70 16 98 T-Piece 6.0 28 07/16/19 19:44 98 T-Piece 6.0 28 07/16/19 16:00 67 07/16/19 16:00 T-piece 28.0 07/16/19 16:00 8.0 28 07/16/19 16:00 98.7 69 21 140/86 (104) 98 07/16/19 14:00 98 T-Piece 6.0 28 Intake and Output 07/16/19 07/17/19 19:00 07:00 Intake Total 806 ml 740 ml Balance 806 ml 740 ml Intake Free Water 100 ml 200 ml IV Total 166 ml Tube Feeding 540 ml 540 ml # Voids 6 5 Laboratory Tests Test 07/17/19 03:15 White Blood Count 5.8 K/UL (4.8-10.8) Red Blood Count 3.35 M/UL (4.20-5.40) L Hemoglobin 10.0 G/DL (12.0-16.0) L Hematocrit 31.3 % (37.0-47.0) L Mean Corpuscular Volume 94 FL (80-99) Mean Corpuscular Hemoglobin 29.9 PG (27.0-31.0) Mean Corpuscular Hemoglobin Concent 31.9 G/DL (32.0-36.0) L Red Cell Distribution Width 14.4 % (11.6-14.8) Platelet Count 206 K/UL (150-450) Mean Platelet Volume 7.2 FL (6.5-10.1) Neutrophils (%) (Auto) 74.7 % (45.0-75.0) Lymphocytes (%) (Auto) 12.5 % (20.0-45.0) L Monocytes (%) (Auto) 8.1 % (1.0-10.0) Eosinophils (%) (Auto) 3.5 % (0.0-3.0) H Basophils (%) (Auto) 1.2 % (0.0-2.0) Sodium Level 145 MMOL/L (136-145) Potassium Level 4.3 MMOL/L (3.5-5.1) Chloride Level 111 MMOL/L (98-107) H Carbon Dioxide Level 24 MMOL/L (21-32) Anion Gap 10 mmol/L (5-15) Blood Urea Nitrogen 17 mg/dL (7-18) Creatinine 1.4 MG/DL (0.55-1.30) H Estimat Glomerular Filtration Rate 46.5 mL/min (>60) Glucose Level 90 MG/DL (74-106) Calcium Level 9.1 MG/DL (8.5-10.1) Total Bilirubin 0.2 MG/DL (0.2-1.0) Aspartate Amino Transf (AST/SGOT) 16 U/L (15-37) Alanine Aminotransferase (ALT/SGPT) 25 U/L (12-78) Alkaline Phosphatase 71 U/L (46-116) Total Protein 5.9 G/DL (6.4-8.2) L Albumin 2.3 G/DL (3.4-5.0) L Globulin 3.6 g/dL Albumin/Globulin Ratio 0.6 (1.0-2.7) L Microbiology Date/Time Source Procedure Growth Status 07/15/19 11:00 Nasal Nares MRSA Culture - Final Staphylococcus Aureus - Mrsa Complete 07/15/19 12:14 Rectum VRE Culture - Final Enterococcus Faecium - Vre Complete 07/15/19 11:00 Rectum - Final NO CARBAPENEM-RESISTANT ENTEROBACTERI... Complete Objective HEENT: Tracheostomy in place LUNGS: Coarse rhonchi CVS: RRR ABDOMEN: Obese. PEG in place EXT: No edema. Right arm PICC line in place Giles Rodarte MD Jul 17, 2019 12:07
--- NOTE | 2019-07-17 12:48 | Infectious Diseases Prog Note ---
Assessment/Plan Assessment/Plan A 1. leucocytosis resolved 2. angioedema 3. respiratory failure s/p emergent tracheostomy 4. HIV, AIDS 5. renal failure improving 6. tracheostomy site infection P 1. Continue Bactrim, will try to decrease the dose soon 2. Will order Genvoya from outside pharmacy Subjective ROS Limited/Unobtainable: Yes Respiratory: Reports: productive cough Gastrointestinal/Abdominal: Reports: no symptoms, other Genitourinary: Reports: no symptoms Allergies: Coded Allergies: LISINOPRIL (Unverified Allergy, Severe, Angioedema, 07/16/19) Per pt's girlfriend (Melody Easley) and patient- both state the pt took lisinopril (belonged to [facility]) twice before and had mild facial swelling; however when the pt took it for the 3rd time, both her face and tongue were swollen and she was admitted here for Angioedema. Objective Vital Signs Last 24 Hour Vital Signs Date Time Temp Pulse Resp B/P (MAP) Pulse Ox O2 Delivery O2 Flow Rate FiO2 07/17/19 12:00 T-piece 28.0 07/17/19 12:00 98.7 66 20 122/78 (93) 97 07/17/19 12:00 8.0 28 07/17/19 08:00 98.3 63 20 150/83 (105) 98 07/17/19 08:00 59 07/17/19 08:00 8.0 28 07/17/19 08:00 T-piece 28.0 07/17/19 07:04 63 18 98 T-Piece 6.0 28 07/17/19 07:04 98 T-Piece 6.0 28 07/17/19 04:00 8.0 28 07/17/19 04:00 T-piece 28.0 07/17/19 04:00 97.5 66 16 144/78 (100) 100 07/17/19 04:00 61 07/17/19 01:19 97 T-Piece 6.0 28 07/17/19 00:00 65 07/17/19 00:00 8.0 28 07/17/19 00:00 97.2 63 20 110/71 (84) 98 07/17/19 00:00 T-piece 28.0 07/16/19 20:00 8.0 28 07/16/19 20:00 T-piece 28.0 07/16/19 20:00 98.1 66 20 137/74 (95) 99 07/16/19 20:00 70 07/16/19 19:45 70 16 98 T-Piece 6.0 28 07/16/19 19:44 98 T-Piece 6.0 28 07/16/19 16:00 67 07/16/19 16:00 T-piece 28.0 07/16/19 16:00 8.0 28 07/16/19 16:00 98.7 69 21 140/86 (104) 98 07/16/19 14:00 98 T-Piece 6.0 28 Height (Feet): 5 Height (Inches): 3.00 Weight (Pounds): 166 General Appearance: no acute distress HEENT: status post trach Respiratory/Chest: lungs clear, other - on Cardiovascular: normal rate Abdomen: soft, non tender, other - GT feeding Extremities: no edema Neurologic/Psychiatric: alert, oriented x 3, responsive Microbiology Date/Time Source Procedure Growth Status 07/15/19 11:00 Nasal Nares MRSA Culture - Final Staphylococcus Aureus - Mrsa Complete 07/15/19 12:14 Rectum VRE Culture - Final Enterococcus Faecium - Vre Complete 07/15/19 11:00 Rectum - Final NO CARBAPENEM-RESISTANT ENTEROBACTERI... Complete Laboratory Tests Test 07/17/19 03:15 White Blood Count 5.8 K/UL (4.8-10.8) Red Blood Count 3.35 M/UL (4.20-5.40) L Hemoglobin 10.0 G/DL (12.0-16.0) L Hematocrit 31.3 % (37.0-47.0) L Mean Corpuscular Volume 94 FL (80-99) Mean Corpuscular Hemoglobin 29.9 PG (27.0-31.0) Mean Corpuscular Hemoglobin Concent 31.9 G/DL (32.0-36.0) L Red Cell Distribution Width 14.4 % (11.6-14.8) Platelet Count 206 K/UL (150-450) Mean Platelet Volume 7.2 FL (6.5-10.1) Neutrophils (%) (Auto) 74.7 % (45.0-75.0) Lymphocytes (%) (Auto) 12.5 % (20.0-45.0) L Monocytes (%) (Auto) 8.1 % (1.0-10.0) Eosinophils (%) (Auto) 3.5 % (0.0-3.0) H Basophils (%) (Auto) 1.2 % (0.0-2.0) Sodium Level 145 MMOL/L (136-145) Potassium Level 4.3 MMOL/L (3.5-5.1) Chloride Level 111 MMOL/L (98-107) H Carbon Dioxide Level 24 MMOL/L (21-32) Anion Gap 10 mmol/L (5-15) Blood Urea Nitrogen 17 mg/dL (7-18) Creatinine 1.4 MG/DL (0.55-1.30) H Estimat Glomerular Filtration Rate 46.5 mL/min (>60) Glucose Level 90 MG/DL (74-106) Calcium Level 9.1 MG/DL (8.5-10.1) Total Bilirubin 0.2 MG/DL (0.2-1.0) Aspartate Amino Transf (AST/SGOT) 16 U/L (15-37) Alanine Aminotransferase (ALT/SGPT) 25 U/L (12-78) Alkaline Phosphatase 71 U/L (46-116) Total Protein 5.9 G/DL (6.4-8.2) L Albumin 2.3 G/DL (3.4-5.0) L Globulin 3.6 g/dL Albumin/Globulin Ratio 0.6 (1.0-2.7) L Current Medications Medications (Trade) Dose Ordered Sig/Dmitri Route PRN Reason Start Time Stop Time Status Last Admin Dose Admin Acetaminophen (Tylenol) 650 mg Q4H PRN NG Mild Pain/fever 07/13/19 06:00 08/09/19 05:59 07/13/19 20:44 Acetaminophen (Tylenol) 650 mg Q4H PRN RECTAL FEVER 07/13/19 06:00 07/29/19 05:59 Acetaminophen/ Hydrocodone Bitart ([place] 5/325) 1 tab Q4H PRN ORAL Mild Pain (Pain Scale 1-3) 07/16/19 13:30 07/23/19 13:29 Acetaminophen/ Hydrocodone Bitart ([place] 5/325) 2 tab Q4H PRN ORAL Moderate Pain (Pain Scale 4-6) 07/16/19 13:30 07/23/19 13:29 07/17/19 08:07 Clonidine HCl (Catapres TTS-1) 1 patch QWEEK TDERMAL 07/18/19 15:00 08/03/19 14:59 Dextrose (Dextrose 50%) 25 ml Q30M PRN IV Hypoglycemia 07/13/19 06:30 07/30/19 14:59 Dextrose (Dextrose 50%) 50 ml Q30M PRN IV Hypoglycemia 07/13/19 06:30 07/30/19 14:59 Diphenhydramine HCl (Benadryl) 25 mg Q6H PRN IVP Muscle Spasm 07/13/19 06:00 07/29/19 05:59 07/17/19 11:25 Epoetin Eric (Epoetin Eric(ESRD on dialysis)) 8,000 unit MON-MON-MON SUBQ 07/15/19 21:00 07/31/19 20:59 07/15/19 21:15 Insulin Aspart (NovoLOG) BEFORE MEALS AND HS SUBQ 07/13/19 06:30 07/30/19 16:29 07/17/19 12:33 Magnesium Oxide (Mag-Ox 400mg) 400 mg THREE TIMES A DAY NG 07/13/19 09:00 08/06/19 12:59 07/17/19 12:34 Metoclopramide HCl (Reglan) 10 mg Q6H PRN IVP Nausea & Vomiting 07/13/19 06:00 07/29/19 05:59 Mirtazapine (Remeron) 15 mg BEDTIME ORAL 07/17/19 21:00 08/16/19 20:59 Ondansetron HCl (Zofran) 4 mg Q6H PRN IVP Nausea & Vomiting 07/13/19 06:00 07/29/19 05:59 Prednisone (predniSONE) 10 mg DAILY ORAL 07/16/19 09:00 08/15/19 08:59 07/17/19 08:06 Thiamine HCl 100 mg/Dextrose 56 ml @ 112 mls/hr DAILY IVPB 07/13/19 09:00 08/12/19 08:59 07/17/19 09:36 Trimethoprim/ Sulfamethoxazole (Bactrim-DS) 20 ml EVERY 12 HOURS NG 07/13/19 09:00 07/24/19 23:59 07/17/19 08:07 Kwaku Garcia MD Jul 17, 2019 12:48
--- NOTE | 2019-07-17 14:14 | Surgery Progress Note ---
Surgery Progress Note Subjective Additional Comments no acute events passed swallow overall improving plan to start diet plan to cap trach Objective Last 24 Hour Vital Signs Date Time Temp Pulse Resp B/P (MAP) Pulse Ox O2 Delivery O2 Flow Rate FiO2 07/17/19 13:10 99 T-Piece 6.0 28 07/17/19 12:00 64 07/17/19 12:00 T-piece 28.0 07/17/19 12:00 98.7 66 20 122/78 (93) 97 07/17/19 12:00 8.0 28 07/17/19 08:00 98.3 63 20 150/83 (105) 98 07/17/19 08:00 59 07/17/19 08:00 8.0 28 07/17/19 08:00 T-piece 28.0 07/17/19 07:04 63 18 98 T-Piece 6.0 28 07/17/19 07:04 98 T-Piece 6.0 28 07/17/19 04:00 8.0 28 07/17/19 04:00 T-piece 28.0 07/17/19 04:00 97.5 66 16 144/78 (100) 100 07/17/19 04:00 61 07/17/19 01:19 97 T-Piece 6.0 28 07/17/19 00:00 65 07/17/19 00:00 8.0 28 07/17/19 00:00 97.2 63 20 110/71 (84) 98 07/17/19 00:00 T-piece 28.0 07/16/19 20:00 8.0 28 07/16/19 20:00 T-piece 28.0 07/16/19 20:00 98.1 66 20 137/74 (95) 99 07/16/19 20:00 70 07/16/19 19:45 70 16 98 T-Piece 6.0 28 07/16/19 19:44 98 T-Piece 6.0 28 07/16/19 16:00 67 07/16/19 16:00 T-piece 28.0 07/16/19 16:00 8.0 28 07/16/19 16:00 98.7 69 21 140/86 (104) 98 I&O Intake and Output 07/16/19 07/17/19 19:00 07:00 Intake Total 806 ml 740 ml Balance 806 ml 740 ml Intake Free Water 100 ml 200 ml IV Total 166 ml Tube Feeding 540 ml 540 ml # Voids 6 5 Dressing: dry Wound: clean Drains: other Cardiovascular: RSR Respiratory: clear Abdomen: soft, non-tender, present bowel sounds Extremities: no tenderness, no cyanosis Laboratory Tests Test 07/17/19 03:15 White Blood Count 5.8 K/UL (4.8-10.8) Red Blood Count 3.35 M/UL (4.20-5.40) L Hemoglobin 10.0 G/DL (12.0-16.0) L Hematocrit 31.3 % (37.0-47.0) L Mean Corpuscular Volume 94 FL (80-99) Mean Corpuscular Hemoglobin 29.9 PG (27.0-31.0) Mean Corpuscular Hemoglobin Concent 31.9 G/DL (32.0-36.0) L Red Cell Distribution Width 14.4 % (11.6-14.8) Platelet Count 206 K/UL (150-450) Mean Platelet Volume 7.2 FL (6.5-10.1) Neutrophils (%) (Auto) 74.7 % (45.0-75.0) Lymphocytes (%) (Auto) 12.5 % (20.0-45.0) L Monocytes (%) (Auto) 8.1 % (1.0-10.0) Eosinophils (%) (Auto) 3.5 % (0.0-3.0) H Basophils (%) (Auto) 1.2 % (0.0-2.0) Sodium Level 145 MMOL/L (136-145) Potassium Level 4.3 MMOL/L (3.5-5.1) Chloride Level 111 MMOL/L (98-107) H Carbon Dioxide Level 24 MMOL/L (21-32) Anion Gap 10 mmol/L (5-15) Blood Urea Nitrogen 17 mg/dL (7-18) Creatinine 1.4 MG/DL (0.55-1.30) H Estimat Glomerular Filtration Rate 46.5 mL/min (>60) Glucose Level 90 MG/DL (74-106) Calcium Level 9.1 MG/DL (8.5-10.1) Total Bilirubin 0.2 MG/DL (0.2-1.0) Aspartate Amino Transf (AST/SGOT) 16 U/L (15-37) Alanine Aminotransferase (ALT/SGPT) 25 U/L (12-78) Alkaline Phosphatase 71 U/L (46-116) Total Protein 5.9 G/DL (6.4-8.2) L Albumin 2.3 G/DL (3.4-5.0) L Globulin 3.6 g/dL Albumin/Globulin Ratio 0.6 (1.0-2.7) L Plan Problems: (1) Angioedema Assessment & Plan: airway trach as per reports trach stable currently sutures in place dressings changed HD line in place and noted cap trach will follow with recs thank you (2) Tracheostomy hemorrhage Assessment & Plan: stable dressings dry will monitor doing well improving (3) Tracheostomy complication Assessment & Plan: Much less leakage around trach site. Wound clean and dry now. No signs of active infection. Mucus decrease. Will unlikely need revision at this point. currently improved less mucus wound cleaner carpet and upholstery cap trach trial diet George Cavazos Jul 17, 2019 14:14
--- NOTE | 2019-07-17 14:26 | Nephrology Progress Note ---
Assessment/Plan Problem List: (1) Cocaine abuse (2) Angioedema (3) Hypertension (4) Tracheostomy hemorrhage (5) JUANITA (acute kidney injury) Plan CBC, BMP today and tomorrow Abx per ID Swallow Evaluation completed today. Awaiting results. She has been cleared by nephrology for discharge. Ms. Burnett is awaiting a bed at [facility] Subjective Constitutional: Reports: no symptoms HEENT: Reports: no symptoms Genitourinary: Reports: no symptoms Neurologic/Psychiatric: Reports: no symptoms Subjective No new events Objective Objective Last 24 Hour Vital Signs Date Time Temp Pulse Resp B/P (MAP) Pulse Ox O2 Delivery O2 Flow Rate FiO2 07/17/19 13:10 99 T-Piece 6.0 28 07/17/19 12:00 64 07/17/19 12:00 T-piece 28.0 07/17/19 12:00 98.7 66 20 122/78 (93) 97 07/17/19 12:00 8.0 28 07/17/19 08:00 98.3 63 20 150/83 (105) 98 07/17/19 08:00 59 07/17/19 08:00 8.0 28 07/17/19 08:00 T-piece 28.0 07/17/19 07:04 63 18 98 T-Piece 6.0 28 07/17/19 07:04 98 T-Piece 6.0 28 07/17/19 04:00 8.0 28 07/17/19 04:00 T-piece 28.0 07/17/19 04:00 97.5 66 16 144/78 (100) 100 07/17/19 04:00 61 07/17/19 01:19 97 T-Piece 6.0 28 07/17/19 00:00 65 07/17/19 00:00 8.0 28 07/17/19 00:00 97.2 63 20 110/71 (84) 98 07/17/19 00:00 T-piece 28.0 07/16/19 20:00 8.0 28 07/16/19 20:00 T-piece 28.0 07/16/19 20:00 98.1 66 20 137/74 (95) 99 07/16/19 20:00 70 07/16/19 19:45 70 16 98 T-Piece 6.0 28 07/16/19 19:44 98 T-Piece 6.0 28 07/16/19 16:00 67 07/16/19 16:00 T-piece 28.0 07/16/19 16:00 8.0 28 07/16/19 16:00 98.7 69 21 140/86 (104) 98 Intake and Output 07/16/19 07/17/19 19:00 07:00 Intake Total 806 ml 740 ml Balance 806 ml 740 ml Intake Free Water 100 ml 200 ml IV Total 166 ml Tube Feeding 540 ml 540 ml # Voids 6 5 Laboratory Tests 07/17/19 03:15: White Blood Count 5.8, Red Blood Count 3.35L, Hemoglobin 10.0L, Hematocrit 31.3L , Mean Corpuscular Volume 94, Mean Corpuscular Hemoglobin 29.9, Mean Corpuscular Hemoglobin Concent 31.9L, Red Cell Distribution Width 14.4, Platelet Count 206, Mean Platelet Volume 7.2, Neutrophils (%) (Auto) 74.7, Lymphocytes (%) (Auto) 12.5L, Monocytes (%) (Auto) 8.1, Eosinophils (%) (Auto) 3.5H, Basophils (%) (Auto) 1.2, Sodium Level 145, Potassium Level 4.3, Chloride Level 111H, Carbon Dioxide Level 24, Anion Gap 10, Blood Urea Nitrogen 17, Creatinine 1.4H, Estimat Glomerular Filtration Rate 46.5, Glucose Level 90, Calcium Level 9.1, Total Bilirubin 0.2, Aspartate Amino Transf (AST/SGOT) 16, Alanine Aminotransferase (ALT/SGPT) 25, Alkaline Phosphatase 71, Total Protein 5.9L, Albumin 2.3L, Globulin 3.6, Albumin/Globulin Ratio 0.6L Height (Feet): 5 Height (Inches): 3.00 Weight (Pounds): 166 General Appearance: no apparent distress, alert EENT: PERRL/EOMI Neck: normal alignment, supple, normal inspection Cardiovascular: normal peripheral pulses, normal rate, regular rhythm Respiratory/Chest: lungs clear, normal breath sounds, no respiratory distress Abdomen: normal bowel sounds, non tender, soft, no organomegaly Extremities: non-tender, normal inspection Neurologic: administrative associate II-XII grossly normal, no motor/sensory deficits, alert, oriented x 3, responsive, normal mood/affect Objective Ms. Burnett appears calm at this time. She is observed laying in bed, awake/alert/ NAD Now: Clear trach/Clear lungs/no stridor noted She continues to be producing clear yellow urine Neuro: A&Ox4, SINGE WINDER intact CVS: RRR Lungs:clear, trached/no bleeding or drainage noted to gauze under cuff HEENT: head atraumatic, PERRLA, nose/mouth pink-moist mucosa, tracheostomy clean /no drainage noted to gauze Abd: TTP, BS + GI/: patel, BS+4Q Extremities: no edema, pop/pedal 2+ (sequentials in place and on) Skin: normal for ethnicity, no decub ulcers Sharee Alvarez N.P. Jul 17, 2019 14:26
[2019-07-17 16:00] VITALS: BP 12/79
[2019-07-17] MEDS ORDERED: D5 1/2NS 1000ml IV ONE (17:27)
[2019-07-17] MEDS ORDERED: NS 275ml ONE (17:27)
[2019-07-17] MEDS ORDERED: GENVOYA ORAL SCH (18:00)
--- NOTE | 2019-07-17 18:44 | Hematology/Onc Progress Note ---
Assessment/Plan Assessment/Plan A/R # Anemia of chronic disease due to underlying chronic medical issues, multifactorial --> Anemia workup has been ordered and c/w acd --> No evidence of hemolysis is noted, peripheral smear has been reviewed. --> Hgb goal >8. Transfuse prn. --> Epogen indicated given hiv --> Medications have been reviewed --> low threshold for gi evaluation in case has occult + --> hgb trend 8.7--> 9-->10.9-->9.7->8.6-->9.6-->8.8-->10.3->9.3-->10 --> b12, folic acid, tsh reviewed # Leukocytosis --> wbc trend 17-->15-->14k->16-->19.4-->15-->15.9-->13.6-->17.1-->12.1-->8.6--> 5.8 --> steriods for angioedema # Thrombocytopenia - potential causes multifactorial, evaluate liver and viral etiologies to begin, also could be related to underlying medications patient has received. 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 Significance/etiology uncertain. This can be seen in chronic pancreatitis as well as ductectatic neoplasm--> once more stable get Ct with iv cont --> DIC panel has been reviewed, NEgative --> Peripheral smear ordered to evaluate for blasts /schistocytes and none noted --> abx and other meds have been reviewed --> ok for ppx if plt >50k w/ either heparin or lovenox --> Transfuse if Plt < 20k and fever, or if Plt < 10k without fever --> plt trend 200-->87-->60-->38k-> 50k-->91k-->110k-->138k-->184k->207k-->241k- ->221k-->206k -> [id number] ordered -- > is neg --> ID eval and care per id # Angioedeama --> ffp, steriods given --> s/p trach # Resp failure s/p trach --> to vent # Severe Hypotension --> is now off both pressors. # Hx of Hypertension # Cocaine abuse # ARF on HD now --> 07/02 --> now off hd # HIV++ --> as per id The timing of this note does not necessarily reflect the time of the patient was seen. GREATLY APPRECIATE CONSULTATION. Subjective Allergies: Coded Allergies: LISINOPRIL (Unverified Allergy, Severe, Angioedema, 07/16/19) Per pt's girlfriend (Meldoy Easley) and patient- both state the pt took lisinopril (belonged to [facility]) twice before and had mild facial swelling; however when the pt took it for the 3rd time, both her face and tongue were swollen and she was admitted here for Angioedema. Subjective 07/02: remains in the icu, onpressors and epogen, hgb stable 07/03: in icu, no events, on vent, no fever or chills, denies pain or sob 07/04: s/p vent/trach, on fentanyl gtt, id made aware of HIV++ 07/05: sedated, trach, off abx, labs reviewed 07/07: weaning off pressors, no fevers or chills, is on pcp ppx 07/08: weaning off vent, no bleeding, htn better on clonidine coughing intermittently 07/10: getting 1 unit prnc, weaning vent when possible 07/11: off the vent, on ivf, no complaints. on abx, labs noted, wbc trending up 07/12: vs stable, no pain or discomfort, on abx, 07/13: remains on peg tube feeds, on t-piece as well 8l 07/15: no bleeding, continue on meds, on tube feeds 07/16: on feeds, on abx, no bleeding, labs noted 07/17: vs stable, no f/c, no events, dc planning Objective Objective Current Medications Medications (Trade) Dose Ordered Sig/Dmitri Route PRN Reason Start Time Stop Time Status Last Admin Dose Admin Acetaminophen (Tylenol) 650 mg Q4H PRN NG Mild Pain/fever 07/13/19 06:00 08/09/19 05:59 07/13/19 20:44 Acetaminophen (Tylenol) 650 mg Q4H PRN RECTAL FEVER 07/13/19 06:00 07/29/19 05:59 Acetaminophen/ Hydrocodone Bitart ([place] 5/325) 1 tab Q4H PRN ORAL Mild Pain (Pain Scale 1-3) 07/16/19 13:30 07/23/19 13:29 Acetaminophen/ Hydrocodone Bitart ([place] 5/325) 2 tab Q4H PRN ORAL Moderate Pain (Pain Scale 4-6) 07/16/19 13:30 07/23/19 13:29 07/17/19 16:12 Clonidine HCl (Catapres TTS-1) 1 patch QWEEK TDERMAL 07/18/19 15:00 08/03/19 14:59 Dextrose (Dextrose 50%) 25 ml Q30M PRN IV Hypoglycemia 07/13/19 06:30 07/30/19 14:59 Dextrose (Dextrose 50%) 50 ml Q30M PRN IV Hypoglycemia 07/13/19 06:30 07/30/19 14:59 Diphenhydramine HCl (Benadryl) 25 mg Q6H PRN IVP Muscle Spasm 07/13/19 06:00 07/29/19 05:59 07/17/19 11:25 Epoetin Eric (Epoetin Eric-EPBX(NON ESRD)) 8,000 unit MON-MON-MON SUBQ 07/17/19 21:00 08/16/19 20:59 Insulin Aspart (NovoLOG) BEFORE MEALS AND HS SUBQ 07/13/19 06:30 07/30/19 16:29 07/17/19 12:33 Magnesium Oxide (Mag-Ox 400mg) 400 mg THREE TIMES A DAY NG 07/13/19 09:00 08/06/19 12:59 07/17/19 17:48 Metoclopramide HCl (Reglan) 10 mg Q6H PRN IVP Nausea & Vomiting 07/13/19 06:00 07/29/19 05:59 Mirtazapine (Remeron) 15 mg BEDTIME ORAL 07/17/19 21:00 08/16/19 20:59 Ondansetron HCl (Zofran) 4 mg Q6H PRN IVP Nausea & Vomiting 07/13/19 06:00 07/29/19 05:59 Patient Own Medication (Patient's Own Med) 1 ea DAILY ORAL 07/17/19 18:00 08/16/19 17:59 07/17/19 17:48 Prednisone (predniSONE) 10 mg DAILY ORAL 07/16/19 09:00 08/15/19 08:59 07/17/19 08:06 Thiamine HCl 100 mg/Dextrose 56 ml @ 112 mls/hr DAILY IVPB 07/13/19 09:00 08/12/19 08:59 07/17/19 09:36 Trimethoprim/ Sulfamethoxazole (Bactrim-DS) 20 ml EVERY 12 HOURS NG 07/13/19 09:00 07/24/19 23:59 07/17/19 08:07 Last 24 Hour Vital Signs Date Time Temp Pulse Resp B/P (MAP) Pulse Ox O2 Delivery O2 Flow Rate FiO2 07/17/19 16:00 8.0 28 07/17/19 16:00 66 07/17/19 13:10 99 T-Piece 6.0 07/17/19 12:00 64 07/17/19 12:00 T-piece 28.0 07/17/19 12:00 98.7 66 20 122/78 (93) 97 07/17/19 12:00 8.0 28 07/17/19 08:00 98.3 63 20 150/83 (105) 98 07/17/19 08:00 59 07/17/19 08:00 8.0 28 07/17/19 08:00 T-piece 28.0 07/17/19 07:04 63 18 98 T-Piece 6.0 07/17/19 07:04 98 T-Piece 6.0 28 07/17/19 04:00 8.0 28 07/17/19 04:00 T-piece 28.0 07/17/19 04:00 97.5 66 16 144/78 (100) 100 07/17/19 04:00 61 07/17/19 01:19 97 T-Piece 6.0 28 07/17/19 00:00 65 07/17/19 00:00 8.0 28 07/17/19 00:00 97.2 63 20 110/71 (84) 98 07/17/19 00:00 T-piece 28.0 07/16/19 20:00 8.0 28 07/16/19 20:00 T-piece 28.0 07/16/19 20:00 98.1 66 20 137/74 (95) 99 07/16/19 20:00 70 07/16/19 19:45 70 16 98 T-Piece 6.0 28 07/16/19 19:44 98 T-Piece 6.0 28 07/16/19 16:00 67 07/16/19 16:00 T-piece 28.0 07/16/19 16:00 8.0 28 07/16/19 16:00 98.7 69 21 140/86 (104) 98 07/16/19 14:00 98 T-Piece 6.0 07/16/19 12:00 70 07/16/19 12:00 T-piece 28.0 07/16/19 12:00 8.0 28 07/16/19 12:00 98.5 64 22 137/82 (100) 98 07/16/19 08:00 98.4 73 23 130/77 (94) 99 07/16/19 08:00 T-piece 28.0 07/16/19 08:00 61 07/16/19 08:00 8.0 28 07/16/19 07:41 62 14 97 T-Piece 6.0 07/16/19 07:41 97 T-Piece 6.0 07/16/19 04:00 68 07/16/19 04:00 97.7 63 20 136/85 (102) 100 07/16/19 04:00 T-piece 28.0 07/16/19 04:00 8.0 28 07/16/19 01:12 98 T-Piece 6.0 07/16/19 00:00 8.0 28 07/16/19 00:00 60 07/16/19 00:00 97.3 60 20 136/79 (98) 100 07/16/19 00:00 T-piece 28.0 07/15/19 20:00 97.7 60 20 138/84 (102) 100 07/15/19 20:00 61 07/15/19 20:00 8.0 28 07/15/19 20:00 T-piece 28.0 07/15/19 19:47 98 T-Piece 6.0 07/15/19 19:47 64 18 98 T-Piece 6.0 28 Intake and Output 07/16/19 07/17/19 19:00 07:00 Intake Total 806 ml 740 ml Balance 806 ml 740 ml Intake Free Water 100 ml 200 ml IV Total 166 ml Tube Feeding 540 ml 540 ml # Voids 6 5 Labs Test 07/15/19 03:35 07/17/19 03:15 White Blood Count 8.6 K/UL (4.8-10.8) 5.8 K/UL (4.8-10.8) Red Blood Count 3.06 M/UL (4.20-5.40) 3.35 M/UL (4.20-5.40) Hemoglobin 9.3 G/DL (12.0-16.0) 10.0 G/DL (12.0-16.0) Hematocrit 29.0 % (37.0-47.0) 31.3 % (37.0-47.0) Mean Corpuscular Volume 95 FL (80-99) 94 FL (80-99) Mean Corpuscular Hemoglobin 30.4 PG (27.0-31.0) 29.9 PG (27.0-31.0) Mean Corpuscular Hemoglobin Concent 32.1 G/DL (32.0-36.0) 31.9 G/DL (32.0-36.0) Red Cell Distribution Width 14.1 % (11.6-14.8) 14.4 % (11.6-14.8) Platelet Count 227 K/UL (150-450) 206 K/UL (150-450) Mean Platelet Volume 7.3 FL (6.5-10.1) 7.2 FL (6.5-10.1) Neutrophils (%) (Auto) 78.7 % (45.0-75.0) 74.7 % (45.0-75.0) Lymphocytes (%) (Auto) 11.5 % (20.0-45.0) 12.5 % (20.0-45.0) Monocytes (%) (Auto) 7.9 % (1.0-10.0) 8.1 % (1.0-10.0) Eosinophils (%) (Auto) 1.2 % (0.0-3.0) 3.5 % (0.0-3.0) Basophils (%) (Auto) 0.7 % (0.0-2.0) 1.2 % (0.0-2.0) Sodium Level 144 MMOL/L (136-145) 145 MMOL/L (136-145) Potassium Level 4.2 MMOL/L (3.5-5.1) 4.3 MMOL/L (3.5-5.1) Chloride Level 112 MMOL/L (98-107) 111 MMOL/L (98-107) Carbon Dioxide Level 23 MMOL/L (21-32) 24 MMOL/L (21-32) Anion Gap 9 mmol/L (5-15) 10 mmol/L (5-15) Blood Urea Nitrogen 17 mg/dL (7-18) 17 mg/dL (7-18) Creatinine 1.5 MG/DL (0.55-1.30) 1.4 MG/DL (0.55-1.30) Estimat Glomerular Filtration Rate 42.9 mL/min (>60) 46.5 mL/min (>60) Glucose Level 95 MG/DL (74-106) 90 MG/DL (74-106) Calcium Level 8.4 MG/DL (8.5-10.1) 9.1 MG/DL (8.5-10.1) Total Bilirubin 0.2 MG/DL (0.2-1.0) Aspartate Amino Transf (AST/SGOT) 16 U/L (15-37) Alanine Aminotransferase (ALT/SGPT) 25 U/L (12-78) Alkaline Phosphatase 71 U/L (46-116) Total Protein 5.9 G/DL (6.4-8.2) Albumin 2.3 G/DL (3.4-5.0) Globulin 3.6 g/dL Albumin/Globulin Ratio 0.6 (1.0-2.7) Height (Feet): 5 Height (Inches): 3.00 Weight (Pounds): 166 Objective Physical Exam: Vitals: reviewed General Appearance: NAD HEENT: normocephalic, atraumatic ++ trach 9L Neck: non-tender, normal alignment Respiratory/Chest: normal breath sounds bilaterally Cardiovascular/Chest: normal peripheral pulses, normal rate Abdomen: normal bowel sounds, soft, nontender Extremities: normal range of motion Jordan Nguyen MD Jul 17, 2019 18:44
--- NOTE | 2019-07-17 19:18 | General Progress Note ---
Assessment/Plan Status: progressing Assessment/Plan: Assessment - Angioedema, s/p emergency trach - abnormal LFT, ? Rhabdo related - resolved - borderline CBD dilation on U/S - abnormal Lipase, ? significance - dysphagia, passed VSS - Thrombocytopenia - improved - HIV (+) - Drug abuse Recommendations - Dc TF - Begin modified diet - GT care - Monitor labs - recheck CMP - Pepcid Subjective Allergies: Coded Allergies: LISINOPRIL (Unverified Allergy, Severe, Angioedema, 07/16/19) Per pt's girlfriend (Melody Easley) and patient- both state the pt took lisinopril (belonged to [facility]) twice before and had mild facial swelling; however when the pt took it for the 3rd time, both her face and tongue were swollen and she was admitted here for Angioedema. Subjective awake out of ICU passed swallow eval Objective Last 24 Hour Vital Signs Date Time Temp Pulse Resp B/P (MAP) Pulse Ox O2 Delivery O2 Flow Rate FiO2 07/17/19 16:00 T-piece 28.0 07/17/19 16:00 8.0 28 07/17/19 16:00 66 07/17/19 13:10 99 T-Piece 6.0 28 07/17/19 12:00 64 07/17/19 12:00 T-piece 28.0 07/17/19 12:00 98.7 66 20 122/78 (93) 97 07/17/19 12:00 8.0 28 07/17/19 08:00 98.3 63 20 150/83 (105) 98 07/17/19 08:00 59 07/17/19 08:00 8.0 28 07/17/19 08:00 T-piece 28.0 07/17/19 07:04 63 18 98 T-Piece 6.0 28 07/17/19 07:04 98 T-Piece 6.0 28 07/17/19 04:00 8.0 28 07/17/19 04:00 T-piece 28.0 07/17/19 04:00 97.5 66 16 144/78 (100) 100 07/17/19 04:00 61 07/17/19 01:19 97 T-Piece 6.0 28 07/17/19 00:00 65 07/17/19 00:00 8.0 28 07/17/19 00:00 97.2 63 20 110/71 (84) 98 07/17/19 00:00 T-piece 28.0 07/16/19 20:00 8.0 28 07/16/19 20:00 T-piece 28.0 07/16/19 20:00 98.1 66 20 137/74 (95) 99 07/16/19 20:00 70 07/16/19 19:45 70 16 98 T-Piece 6.0 28 07/16/19 19:44 98 T-Piece 6.0 28 Intake and Output 07/16/19 07/17/19 19:00 07:00 Intake Total 806 ml 740 ml Balance 806 ml 740 ml Intake Free Water 100 ml 200 ml IV Total 166 ml Tube Feeding 540 ml 540 ml # Voids 6 5 Laboratory Tests 07/17/19 03:15: White Blood Count 5.8, Red Blood Count 3.35L, Hemoglobin 10.0L, Hematocrit 31.3L , Mean Corpuscular Volume 94, Mean Corpuscular Hemoglobin 29.9, Mean Corpuscular Hemoglobin Concent 31.9L, Red Cell Distribution Width 14.4, Platelet Count 206, Mean Platelet Volume 7.2, Neutrophils (%) (Auto) 74.7, Lymphocytes (%) (Auto) 12.5L, Monocytes (%) (Auto) 8.1, Eosinophils (%) (Auto) 3.5H, Basophils (%) (Auto) 1.2, Sodium Level 145, Potassium Level 4.3, Chloride Level 111H, Carbon Dioxide Level 24, Anion Gap 10, Blood Urea Nitrogen 17, Creatinine 1.4H, Estimat Glomerular Filtration Rate 46.5, Glucose Level 90, Calcium Level 9.1, Total Bilirubin 0.2, Aspartate Amino Transf (AST/SGOT) 16, Alanine Aminotransferase (ALT/SGPT) 25, Alkaline Phosphatase 71, Total Protein 5.9L, Albumin 2.3L, Globulin 3.6, Albumin/Globulin Ratio 0.6L Height (Feet): 5 Height (Inches): 3.00 Weight (Pounds): 166 Objective WDWN AA woman NCAT (+) trach Coarse BS RR abd soft, (+) GT no edema Elisabeth Sommers MD Jul 17, 2019 19:18
[2019-07-17] MEDS ORDERED: NS Irrig 1000ml ONE (20:49)
[2019-07-17] MEDS ORDERED: Epoetin Alfa-EPBX (NON ESRD)4000 units/ml vial SUBQ SCH (21:00)
--- NOTE | 2019-07-18 08:51 | Discharge Summary ---
Discharge Summary Discharge Summary _ DATE OF ADMISSION: 06/29/2019 DATE OF DISCHARGE: 07/17/2019 DISCHARGED BY: Dr. Ray REASON FOR ADMISSION: 59-year-old female with past medical history of hypertension, admitted with acute airway compromise due to angioedema. Patient presented with a severe angioedema. She woke up with her tongue and neck being swollen. She had a hard time breathing. She denied fever or chills. No nausea, no vomiting. Patient was taking hydrochlorothiazide and Flexeril. No BETTYE inhibitor use was documented. Patient admitted to use of alcohol and cocaine prior. Patient received epinephrine intramuscularly, steroid , Pepcid , and Benadryl along with racemic epinephrine . Troponin negative. EKG revealed sinus tachycardia , no acute ischemic changes , heart rate of 110 . Laboratory work-up revealed mild leukocytosis WBC 12.6 , stable hemoglobin and hematocrit. Stable coagulation profile. Potassium 3.3. BUN 19, creatinine 1.6 . CK-1218. Urine toxicology screen was positive for cocaine. Urinalysis revealed no evidence of UTI , +2 protein. Patient was transferred to OR where she undergone placement of emergency tracheostomy with estimated blood loss of 2 L, due to severe venous bleeding while dissecting the trachea. Chest x-ray confirmed placement of tracheostomy tube with expected position . Patient was connected to ventilator. Due to acute blood loss , patient developed hypotension , started on Levophed drip and transferred to ICU . CONSULTANTS: insurance office manager Dr. Singleton ID specialist Dr. Adams GI specialist Dr. Sommers casino games dealer Dr. Boothe director of corporate strategy/oncologist Dr. Nguyen surgery Dr. Olivo, Dr. Cavazos psychiatrist [facility]RSE: Patient admitted to ICU. Ventilator support and tracheostomy care provided. Pulmonary toilet provided. Patient received initially fluid boluses and then started on maintenance IV fluids. Patient started on Levophed to keep mean arterial blood pressure above 65. Hemodynamic status was closely monitored. DVT prophylaxis with SCD provided. Patient was continued on Solu-Medrol , Benadryl and Zantac for angioedema. Patient was followed-up with ABG , ventilator settings titrated accordingly. Echocardiogram revealed preserved ejection fraction of 60 to 65% with mild left ventricular hypertrophy. No evidence of wall motion abnormality to the extent visualized, however the posterior and inferior villarreal were not adequately visualized. Right ventricular systolic pressure 28. Patient received transfusion, since hemoglobin dropped to 6.6 after surgery due to acut5e blood loss. Platelet count dropped as well. The next day patient developed evidence of acute kidney injury : creatinine from initial 1.6 up to 3.4 and then the next day up to 4.1. Ophthalmic Nurse followed. Renal ultrasound revealed mild right hydronephrosis and left renal collecting system fullness with uncertain significance. Per casino games dealer, patient required urgent hemodialysis. Patient subsequently undergone placement of left femoral hemodialysis catheter under ultrasound-guided procedure. Renal parameters and electrolytes were closely monitored, electrolytes further corrected as needed. Creatinine started to trend down. Last hemodialysis 07/01 . Jeison catheter was pulled out, no need for further hemodialysis. Nephrotoxic's were avoided. Leukocytosis was worsening, possibly partially contributing to steroids use , no fevers. ID consult was requested. Sputum culture revealed MRSA and Proteus. Culture from tracheostomy drainage revealed MRSA and Proteus. ID specialist closely followed. Antibiotic provided as per ID specialist recommendation. Patient completed treatment for pneumonia while in the hospital. Leukocytosis resolved. Rapid HIV test was positive. Hepatitis panel was negative. T-cell subset revealed absolute CD4 count of 96. Patient was started on Bactrim for PCP prophylaxis. Patient required start of antiretroviral therapy. ID specialist recommended Genvoya, not available at the hospital pharmacy. Genvoya will need to be ordered from outside pharmacy to start treatment at the facility. Hemodynamic status was closely monitored. Patient was able to be weaned from pressors. Limnologist closely followed. Blood pressure later was managed with clonidine patch weekly. Patient was able to be weaned from ventilator. Tracheostomy care provided. Supplemental oxygen via trach collar titrated to keep pulse ox above 92%. Patient undergone upper endoscopy with placement of gastrostomy tube on 07/11. Tube feeding started with tube formula as per registered appraiser recommendation. Strict aspiration /reflux precaution maintained. Patient was able to tolerate tube feeding. Patient later undergone evaluation by speech therapist. Patient was able to pass video swallow evaluation on 07/17. Patient had a high risk for silent aspiration. Diet was modified as per speech therapist recommendations, and patient was started on oral trials. Passey-Yaneth valve was provided during meals. Aspiration precaution maintained. Continue skilled dysphagia management at the facility. If oral intake above 75% of recommended, consider to stop tube feeding, Patient noted to have abnormal LFT , which was possibly rhabdomyolysis related , - resolved. CK trended down to normal: from 1218 to 93. Warehouse Packer followed. Patient undergone transfusion of total of 6 units of packed red blood cells and 2 units of fresh frozen plasma. Counts were closely monitored. Prior to discharge hemoglobin 10, hematocrit 31.3. Leukocytosis resolved. Platelet count 206. Anemia work-up was consistent with anemia of chronic disease. Per director of corporate strategy , patient had anemia of chronic disease due to underlying chronic medical issues , multifactorial. No evidence of hemolysis. Patient was on Epogen , given HIV status. Peripheral smear to evaluate for blasts or schistocytes was negative. Patient initially had leakage around the tracheostomy site with serosanguineous drainage. Surgeon closely followed. Dressing was changed daily and as needed . Much less leakage around tracheostomy site , and wound appeared clean and dry . No signs of active infection , decreased mucus . Per surgeon, tracheostomy was stable, and no need for tracheostomy revision at this point. Pain management was addressed. Supportive care provided. Psychiatrist seen and evaluated patient . Per psychiatrist , patient had anxiety disorder along with adjustment disorder due to newly diagnosed HIV. Psychiatric medication regimen was optimized as per psychiatrist. Patient was provided with reality orientation and supportive therapy. Placement was arranged in a subacute facility. Patient was stable for transfer. FINAL DIAGNOSES: Acute respiratory failure requiring emergency tracheostomy secondary to angioedema Angioedema Tracheostomy complication Severe hypotension with shock /due to acute blood loss Anemia secondary to acute blood loss , requiring blood transfusion Hypertension Newly diagnosed HIV /AIDS with CD4 -96 Renal failure, acute on chronic Rhabdomyolysis Toxic metabolic encephalopathy MRSA/Proteus pneumonia Anemia of chronic disease Thrombocytopenia -resolved Dysphagia , status post PEG Cocaine abuse Anxiety disorder Adjustment disorder DISCHARGE MEDICATIONS: List of medication was sent to accepting facility DISCHARGE INSTRUCTIONS: Patient was discharged to the halfway facility. Follow up with medical doctor at the facility. I have been assigned to dictate discharge summary for this account. I was not involved in the patient's management. Nunu Choudhary NP Jul 18, 2019 08:51
[2019-07-18] MEDS ORDERED: Thiamine 100mg tab ORAL SCH (09:00)
--- NOTE | 2019-07-18 16:19 | Diagnostic Imaging Report ---
Indications: Dysphagia Technique: Patient ingested multiple substances under the supervision of speech pathology. Video fluoroscopic recording performed. Total fluoroscopy time 132.8 seconds. Total dose area product 0.54705 mGycm2 Total number of images-11 Comparison: none Findings: Trace penetration of thin liquid barium is seen with sequential swallows from a cup. No aspiration demonstrated. Equivocal trace penetration of nectar thick liquid barium with sequential swallows from a straw. With ingestion of honey thick liquid barium, barium puree and masticated solid are uneventful except for some early pooling prior to swallowing. No aspiration or penetration. Impression: Positive for penetration of thin and nectar thick liquid barium. Negative for aspiration Please refer to speech pathology report for more detailed analysis
== END 2019-07-17 20:50 | DRG 3 ==
LOC: EMR 06:16 → EDBEDREQ 07:08 → ICU 07:18 → 2W 07-13 06:04
PROC: 0W360ZZ Control Bleeding in Neck, Open Approach (ICD-10-PCS; principal; 2019-06-29 07:00)
PROC: 5A1955Z Respiratory Ventilation, Greater than 96 Consecutive Hours (ICD-10-PCS; principal; 2019-06-29 07:00)
PROC: 0B110F4 Bypass Trachea to Cutaneous with Tracheostomy Device, Open Approach (ICD-10-PCS; principal; 2019-06-29 07:00)
PROC: 06HN33Z Insertion of Infusion Device into Left Femoral Vein, Percutaneous Approach (ICD-10-PCS; 2019-06-30)
PROC: 5A1D70Z Performance of Urinary Filtration, Intermittent, Less than 6 Hours Per Day (ICD-10-PCS; 2019-06-30)
PROC: 06HN33Z Insertion of Infusion Device into Left Femoral Vein, Percutaneous Approach (ICD-10-PCS; 2019-07-08)
PROC: B54CZZA Ultrasonography of Left Lower Extremity Veins, Guidance (ICD-10-PCS; 2019-07-08)
PROC: 0DJ08ZZ Inspection of Upper Intestinal Tract, Via Natural or Artificial Opening Endoscopic (ICD-10-PCS; 2019-07-11)
PROC: 0DH63UZ Insertion of Feeding Device into Stomach, Percutaneous Approach (ICD-10-PCS; 2019-07-11)
DX: T78.3XXA Angioneurotic edema, initial encounter (principal); G92 Toxic encephalopathy; J96.00 Acute respiratory failure, unspecified whether with hypoxia or hypercapnia; R57.8 Other shock; J15.212 Pneumonia due to Methicillin resistant Staphylococcus aureus; J15.6 Pneumonia due to other Gram-negative bacteria; N17.9 Acute kidney failure, unspecified; I97.42 Intraoperative hemorrhage and hematoma of a circulatory system organ or structure complicating other procedure; J95.01 Hemorrhage from tracheostomy stoma; D62 Acute posthemorrhagic anemia; J95.02 Infection of tracheostomy stoma; M62.82 Rhabdomyolysis; B20 Human immunodeficiency virus [HIV] disease; R13.10 Dysphagia, unspecified; D69.6 Thrombocytopenia, unspecified; F41.9 Anxiety disorder, unspecified; G47.00 Insomnia, unspecified; F43.20 Adjustment disorder, unspecified; I95.81 Postprocedural hypotension; F14.10 Cocaine abuse, uncomplicated; I12.9 Hypertensive chronic kidney disease with stage 1 through stage 4 chronic kidney disease, or unspecified chronic kidney disease; N18.9 Chronic kidney disease, unspecified
CPT/HCPCS: 36415; 36569; 36600; 71045; 74018; 74230; 76700; 76770; 76937; 80048; 80053; 80202; 80307; 81003; 82150; 82550; 82607; 82728; 82803; 82962; 83010; 83540; 83550; 83690; 83735; 84100; 84443; 84484; 85007; 85025; 85044; 85060; 85246; 85384; 85610; 85651; 85730; 86140; 86360; 86689; 86703; 86705; 86709; 86803; 86850; 86900; 86901; 86920; 86927; 87070; 87081; 87181; 87205; 87340; 87536; 93005; 93306; 93970; 94002; 94003; 94150; 94640; 94664; 96372; 96374; 96375; 99291; J1815; J2250; J2405; J7620